=== PATIENT | female | born 1940 | race Caucasian/White ===

== ENCOUNTER 2019-08-04 05:33 | Outpatient (RCR) | payer MEDICARE, OTHER, SELFPAY | END 2019-08-26 00:01 | LOC: ONCMED 05:33 | PROVIDERS: Family Provider Family Medicine; Visit Provider Internal Medicine Hematology & Oncology | DX: Z08 Encounter for follow-up examination after completed treatment for malignant neoplasm (principal); Z85.3 Personal history of malignant neoplasm of breast; Z92.21 Personal history of antineoplastic chemotherapy | CPT/HCPCS: 77066; 80053; 85025 ×2; 99213 ==

== ENCOUNTER 2020-01-21 09:33 | Outpatient (CLI) | payer MEDICARE, OTHER, SELFPAY ==
[2020-01-21 10:27] LABS: Basophils % 0.4 %; Eosinophils # 0.1 10^3/uL (0.0-0.8); Eosinophils % 1.5 %; Hematocrit 43.4 % (37.0-47.0); Lymphocytes # 1.4 10^3/uL (0.8-4.8); Lymphocytes % 18.5 %; Mean Corpuscular Hemoglobin 29.1 pg (28.0-34.0); Mean Corpuscular Volume 97.1 fL (81-99); Mean Platelet Volume 9.3 fL (7.4-10.4); Monocytes # 0.7 10^3/uL (0.2-0.9); Monocytes % 8.6 %; Neutrophils # 5.4 10^3/uL (1.8-7.7); Neutrophils % 70.7 %; Nucleated Red Blood Cells % 0 %; Platelet Count 245 10^3/cmm (130-400); Red Blood Count 4.47 10^6/uL (4.1-5.3); Red Cell Distribution Width 13.2 % (12.1-15.1); White Blood Count 7.6 10^3/uL (4.0-10.0)
[2020-01-21 10:44] LABS: Alanine Aminotransferase 11 U/L (0-33); Alkaline Phosphatase 96 IU/L (35-105); Anion Gap 14.1 (5-19); Aspartate Amino Transferase 19 U/L (0-32); Blood Urea Nitrogen 19 mg/dL (8-23); Calcium 8.7 mg/dL (8.5-10.5); Carbon Dioxide 31 mmol/L (22-29); Chloride 100 mmol/L (98-107); Glucose 80 mg/dL (65-115); Osmolality Calculated 287 mOsm/kg (285-295); Potassium 4.1 mmol/L (3.5-5.1); Sodium 141 mmol/L (136-145); Total Bilirubin 0.3 mg/dL (0.15-1.2)
--- NOTE | 2020-01-21 18:08 | ONC FU_ITS ---
Dr. Ortiz follow up note Patient: Kelley Quezada Unit #: [id number]: [id number] Dicatated By: Sonido Ortiz M.D.Date of Visit:January 21, 2020 Onc Med Follow-up/Prog Note History of Present Illness: Mrs. Quezada is a 79-year-old female with recent history of newly diagnosed breast cancer. Per Mrs. Quezada report she had noticed a right breast mass for which she went to see Dr. Holm. He ordered mammogram which was done on 04/02/2018 and it showed ill-defined focal asymmetric measuring 5 cm x 2.5 cm. 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 The pathology revealed a Ki-67 analysis of 33% which is reported as high. ER was less than 1% ND was less than 1% HER-2/neil by IHC was 1+. The HER-2/neil overexpression was negative by IHC and over amplification by FISH. Patient was referred to Dr. Solorio for evaluation. Dr. Solorio then referred her to us for further plan of care. It was recommended that she undergo neoadjuvant chemotherapy with Cytoxan Taxotere. She started on neoadjuvant chemotherapy with Cytoxan/Taxotere on 06/04/2018 Mrs. Quezada underwent staging imaging with PET CT on 05/25/2018. There was the right central breast mass noted to be 4.7 x 2.4 cm with an SUV of 2.3. There are no findings to indicate local or distant metastatic disease. She began neoadjuvant chemotherapy on 06/04/2018 with cyclophosphamide and docetaxel. She underwent follow-up right limited breast ultrasound on 07/12/2018 after she had received 2 cycles of chemotherapy. The ultrasound did report interval response to chemotherapy as the mass did measure 3.6 x 2.9 x 3.1 cm as compared to 4.7 x 2.4 cm on the PET CT from 05/25/2018.Follow-up right breast mammogram done on 08/22/2018 showed significant reduction in right breast mass now measures 1 x 1.6 x 2 cm compared to 4.7 x 2.4 prior to neoadjuvant chemotherapy Underwent lumpectomy with right axillary sentinel lymph node biopsy on 09/19/2018, final pathology report showed multifocal nests of tumor estimated 1 cm aggregate dimension, with positive surgical margin and she underwent reexcision and achieved clear margins. And right axillary sentinel lymph node was positive for metastatic infiltrating lobular carcinoma. ER/ND negative, HER-2/neil negative, Ki-67 33% postlumpectomy surgical wound has healed up pretty good. Was offered adjuvant chemotherapy with oral Xeloda due to being high risk for recurrence. Patient did not start Xeloda because of cardiac issues, recently underwent cardiac monitoring which shows mild bradycardia with occasional PACs, as per patient she was on beta eileen, her dose was adjusted with that her heart rate did improve she also had echocardiogram done on 12/27/2018 which showed ejection fraction 75%. Planning to give her 4-6 cycles of modified dose of Xeloda, 2 weeks on 1 week off followed by postlumpectomy radiation therapy Patient started taking Xeloda on 01/07/2019 and took it for 3 days then developed severe nausea vomiting and diarrhea and and also felt numbness in her left face and left hand, and it also resolved on his own. Call the office and at that time she was told to quit taking Xeloda Status post postlumpectomy radiation to her right breast completed on 03/18/2019 .Mammogram done on 08/01/2019 showed BI-RADS 2, benign Came for follow-up, complaining of progressive lower back pain, patient has history of lower back pain in the past treated by chiropractor but now complaining of progressive pain but denies any lower extremity pain or swelling or numbness. Denies any recent trauma to her back. Denies any fever or chills, denies any weight loss, denies any other new symptoms. Medications: Calcium 500 + D3 1 Tablet (of 500-200 mg - Units) Oral daily, ChlordiazePOXIDE HCl 1 Capsule (of 10 mg) Oral at bedtime, CloNIDine HCl 1 Tablet (of 0.1 mg) Oral b.i.d., HydroCHLOROthiazide 1 Tablet (of 25 mg) Oral daily, levothyroxin 1 Tablet daily, lisinopril 1 Tablet b.i.d., Loratadine 1 Tablet (of 10 mg) Oral daily, Lovastatin 1 Tablet (of 20 mg) Oral b.i.d., Metoprolol Tartrate 1 Tablet (of 50 mg) Oral b.i.d., Omeprazole 1 Tablet (of 20 mg) Tablet, enteric coated Oral daily, Vitamin C 1 Tablet (of 500 mg) Oral daily Allergies: adhesive tape, Biaxin, and Penicillins. Review of Systems: Constitutional - Appetite is good and weight is stable. No fever, chills, hot flashes, or night sweats. Energy level is fair, ENMT - No sinus congestion/drainage. No mouth sores. No sore throat or difficulty swallowing, Hematologic/Lymphatic - No easy bruising or bleeding. The patient denies any tender or palpable lymph nodes, Respiratory - No dyspnea on exertion, chest pain, cough or hemoptysis, Cardiovascular - No chest pains or heart palpitations, Gastrointestinal - No nausea or vomiting. No heartburn or acid reflux. No diarrhea or constipation. No blood in the stool or black stools, Genitourinary (F) - No dysuria or hematuria. No urinary frequency. No urgency or incontinence, Musculoskeletal - No joint pain, swelling or redness, Neurologic - Patient reports occasional headache, no dizziness. No numbness/paresthesias or other focal neurologic symptoms, Psychiatric - No anxiety or depression. No insomnia. Vital Signs: Vitals are not available for this patient. Performance Status: 1 - No physically strenuous activity, but ambulatory and able to carry out light or sedentary work (e.g. office work, light house work). (ECOG) Physical Examination: Respiratory - Lungs are clear, Cardiovascular - Regular rate and rhythm, Extremities - no edema or rash. , no focal tenderness or mass palpable in her back. Lab/Imaging: Test performed on Aug 01, 2019 08:15 Sodium 130 mmol/L Potassium 4.5 mmol/L Chloride 90 mmol/L CO2 28 mmol/L Anion Gap 16.5 BUN 20 mg/dL Creatinine 1.2 mg/dL Cr Clearance (Est) 61.0000 mL/min Glucose 97 mg/dl Calcium 8.5 mg/dL Protein, Total 6.7 g/dL Albumin 4.8 g/dL Globulin 1.9 gm/dL Bilirubin, Total 0.3 mg/dL ALT (SGPT) 13 U/L AST (SGOT) 18 U/L Alkaline Phosphatase 86 U/L WBC 5.2 10 3/uL RBC 4.38 10 6/uL HGB 12.7 g/dL HCT 40.2 % MCV 91.8 fl MCH 29.0 pg MCHC 31.6 g/dl RDW 12.7 % Platelet Count 278 10 3/cmm MPV 9.9 fl Neutrophils 3.3 10 3/uL Lymphocytes 1.3 10 3/uL Monocytes 0.5 10 3/uL Eosinophils 0.1 10 3/uL Basophils 0.0 10 3/uL Neutrophil % 63.6 % Lymphocyte % 25.1 % Monocyte % 8.8 % Eosinophil % 1.7 % Basophils % 0.6 % Impression: Infiltrating lobular carcinoma of right breast status post ultrasound guided biopsy done on 04/22/2018 Treated with neoadjuvant chemotherapy with Cytoxan and Taxotere from 06/04/2018 till 08/06/2018 with good response per follow-up sonogram of right breast underwent right lumpectomy with right axillary lymph node biopsy on 09/19/2018 showed multifocal nests of tumor, estimated 1 cm aggregate dimension pT1b, positive surgical margin, required reexcision to achieve clear margins. Axillary lymph node was positive for metastatic disease pN1b ER ND negative HER-2/neil negative, Ki-67 33% which is high Mammogram done on 04/02/2018 showed 5 x 2.5 cm, ill-defined focal asymmetric in the right breast ?T3 CT PET scan done on 05/25/2018 showed 4.7 x 2.2 cm mass with SUV of 2.3 with no findings suggestive of local or distant metastatic disease Mild renal insufficiency creatinine 1.5 Started on neoadjuvant chemotherapy with Cytoxan and Taxotere, with Neulasta support on 06/04/2018.and concluded 4 cycle on 08/06/18 . Right breast sonogram done after 2 cycles on 07/12/2018 showed 3.6 x 2.9 x 3.1 cm mass compared to 4.7 x 2.[address] seen on [address] PET scan on 05/25/2018 Follow-up mammogram done after 4 cycles on 08/22/2018 showed good response to neoadjuvant chemotherapy and now tumor measures 1 x 1.6 x 2 cm compared to 4.7 x 2 4 cm prior to the neoadjuvant chemotherapy Underwent lumpectomy and sentinel lymph node biopsy as mentioned above on 09/19/2018, Her lumpectomy specimen showed viable disease she was offered adjuvant chemotherapy with oral Xeloda and patient start taking oral Xeloda on 01/07/2019 and within 3 days she developed severe nausea vomiting and diarrhea, no fever but tender mouth with no mouth sores. And also developed left facial numbness and left hand numbness, patient was advised to quit taking Xeloda immediately, her symptoms improved on her own. Considering her age, comorbid condition and related side effect of oral Xeloda and conflicting data on oral Xeloda in adjuvant setting, it was decided to discontinue adjuvant therapy and rather observe with active surveillance, Plan: Discussed with patient regarding her labs white blood count 7.6 and globin 13 crit 43.4 platelets 245,000 CMP within normal limits except creatinine 1.2 Clinically, patient is doing well with no signs symptoms suggestive of recurrence of disease but concern is progressive lower back pain, although patient has history of chronic back pain but now is progressive in nature and interfering with her day-to-day activity. At this point we'll consider bone scan and plain x-ray of thoracic and lumbosacral area, and after reviewing that we will make further recommendations, MRI spine was under consideration but patient has right partial hip replacement. Patient return to clinic after bone scan for further discussion and patient was advised in case there is a worsening of lower back pain or urine or stool incontinence, she needed to go to hospital immediately. Signed By: Sonido Ortiz M.D. <<Signature on File>>
== END 2020-01-21 09:34 | disposition home or self-care (01) ==
LOC: ONCMED 09:39
PROVIDERS: PCP Family Medicine; Visit Provider Internal Medicine Hematology & Oncology
DX: C50.411 Malignant neoplasm of upper-outer quadrant of right female breast (principal); C77.3 Secondary and unspecified malignant neoplasm of axilla and upper limb lymph nodes; G89.29 Other chronic pain; M54.5 Low back pain; N28.9 Disorder of kidney and ureter, unspecified; Z17.1 Estrogen receptor negative status [ER-]; Z92.3 Personal history of irradiation; Z92.21 Personal history of antineoplastic chemotherapy; Z96.641 Presence of right artificial hip joint
CPT/HCPCS: 36415; 80053; 85025; 99214

== ENCOUNTER 2020-01-26 08:34 | Outpatient (CLI) | payer MEDICARE, OTHER, SELFPAY ==
--- NOTE | 2020-01-26 08:43 | XR_ITS ---
WS: [id number] XR thoracic spine 3V* [id number] REASON FOR EXAM: PERSISTENT BONE PAIN FINDINGS: The T6 shows a remote compression fracture. This area showed scattered degenerated uptake b ut no definite new uptake to suggest fractures. The lamina, pedicles, spinous processes and transverse processes are all normal. XR/XR thoracic spine 3V* [id number] IMPRESSION: Remote compression fracture of T6
--- NOTE | 2020-01-26 08:43 | NM_ITS ---
WS: [id number] NM bone scan whole body* [id number] REASON FOR EXAM: RE STAGING EVALUATION/HX OF CANCER,BONE PAIN TECHNICAL: 25.7 mCi technetium 99 and HDP FINDINGS: The lumbar spine and lower thoracic spine shows scattered degenerated changes. No definite metastatic uptake is noted. The rib structures were all normal. The pelvis show no abnormalities. The femurs shafts were normal there is mild degenerate changes activity in the knees. There are scattered degenerate changes in the cervical spine. NM/NM bone scan whole body* [id number] IMPRESSION: Bone activity consistent with osteoarthritis. No definite metastatic changes.
--- NOTE | 2020-01-26 08:43 | XR_ITS ---
WS: [id number] XR lumbar spine 2-3V* [id number] REASON FOR EXAM: PERSISTANT BONE PAIN FINDINGS: Scoliotic curve convex to the left is noted. There is degenerate spurring off the vertebral bodies. And there is degenerate facet arthropathy L5-S1. Degenerated disc changes L2 1-2, L2-3, L3-4 . There is no definite destructive changes to suggest metastatic findings. XR/XR lumbar spine 2-3V* [id number] IMPRESSION: Scoliotic curve convex to the left. Degenerative arthritis with degenerate disc disease.
== END 2020-01-26 08:35 | disposition home or self-care (01) ==
LOC: RAD 08:36
PROVIDERS: PCP Family Medicine; Visit Provider Internal Medicine Hematology & Oncology
DX: Z85.9 Personal history of malignant neoplasm, unspecified (principal); M89.8X9 Other specified disorders of bone, unspecified site; S22.050A Wedge compression fracture of T5-T6 vertebra, initial encounter for closed fracture; X58.XXXA Exposure to other specified factors, initial encounter; M51.36 Other intervertebral disc degeneration, lumbar region
CPT/HCPCS: 72072; 72100; 78306; A9561

== ENCOUNTER 2020-02-06 11:19 | Outpatient (CLI) | payer MEDICARE, OTHER, SELFPAY ==
--- NOTE | 2020-02-06 12:00 | ONC FU_ITS ---
Dr. Ortiz follow up note Patient: Kelley Quezada Unit #: [id number]: 1940 Dicatated By: Sonido Ortiz M.D.Date of Visit:Feb 06, 2020 Onc Med Follow-up/Prog Note History of Present Illness: Mrs. Quezada is a 79-year-old female with recent history of newly diagnosed breast cancer. Per Mrs. Quezada report she had noticed a right breast mass for which she went to see Dr. Holm. He ordered mammogram which was done on 04/02/2018 and it showed ill-defined focal asymmetric measuring 5 cm x 2.5 cm. 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 The pathology revealed a Ki-67 analysis of 33% which is reported as high. ER was less than 1% MD was less than 1% HER-2/neil by IHC was 1+. The HER-2/neil overexpression was negative by IHC and over amplification by FISH. Patient was referred to Dr. Solorio for evaluation. Dr. Solorio then referred her to us for further plan of care. It was recommended that she undergo neoadjuvant chemotherapy with Cytoxan Taxotere. She started on neoadjuvant chemotherapy with Cytoxan/Taxotere on 06/04/2018 Mrs. Quezada underwent staging imaging with PET CT on 05/25/2018. There was the right central breast mass noted to be 4.7 x 2.4 cm with an SUV of 2.3. There are no findings to indicate local or distant metastatic disease. She began neoadjuvant chemotherapy on 06/04/2018 with cyclophosphamide and docetaxel. She underwent follow-up right limited breast ultrasound on 07/12/2018 after she had received 2 cycles of chemotherapy. The ultrasound did report interval response to chemotherapy as the mass did measure 3.6 x 2.9 x 3.1 cm as compared to 4.7 x 2.4 cm on the PET CT from 05/25/2018.Follow-up right breast mammogram done on 08/22/2018 showed significant reduction in right breast mass now measures 1 x 1.6 x 2 cm compared to 4.7 x 2.4 prior to neoadjuvant chemotherapy Underwent lumpectomy with right axillary sentinel lymph node biopsy on 09/19/2018, final pathology report showed multifocal nests of tumor estimated 1 cm aggregate dimension, with positive surgical margin and she underwent reexcision and achieved clear margins. And right axillary sentinel lymph node was positive for metastatic infiltrating lobular carcinoma. ER/MD negative, HER-2/neil negative, Ki-67 33% postlumpectomy surgical wound has healed up pretty good. Was offered adjuvant chemotherapy with oral Xeloda due to being high risk for recurrence. Patient did not start Xeloda because of cardiac issues, recently underwent cardiac monitoring which shows mild bradycardia with occasional PACs, as per patient she was on beta eileen, her dose was adjusted with that her heart rate did improve she also had echocardiogram done on 12/27/2018 which showed ejection fraction 75%. Planning was to give her 4-6 cycles of modified dose of Xeloda, 2 weeks on 1 week off followed by postlumpectomy radiation therapy Patient started taking Xeloda on 01/07/2019 and took it for 3 days then developed severe nausea vomiting and diarrhea and and also felt numbness in her left face and left hand, and it also resolved on his own. Call the office and at that time she was told to quit taking Xeloda Status post postlumpectomy radiation to her right breast completed on 03/18/2019 .Mammogram done on 08/01/2019 showed BI-RADS 2, benign Patient has history of chronic back pain but recently become progressive, for which bone scan was done on January 26, 2020 which showed no evidence of metastatic disease but findings consistent with osteoarthritis and plain x-ray of lumbar spine showed scoliotic curve convex to the left, degenerative arthritis with degenerative disc disease. Came for follow-up, denies any specific complaint except persistent lower back pain but no numbness in the lower extremity no urine or stool incontinence. No recent trauma to her back and she recently underwent bone scan and plain x-ray of lumbar spine, she is here to discuss the results. Medications: Calcium 500 + D3 1 Tablet (of 500-200 mg - Units) Oral daily, ChlordiazePOXIDE HCl 1 Capsule (of 10 mg) Oral at bedtime, CloNIDine HCl 1 Tablet (of 0.1 mg) Oral b.i.d., HydroCHLOROthiazide 1 Tablet (of 25 mg) Oral daily, levothyroxin 1 Tablet daily, lisinopril 1 Tablet b.i.d., Loratadine 1 Tablet (of 10 mg) Oral daily, Lovastatin 1 Tablet (of 20 mg) Oral b.i.d., Metoprolol Tartrate 1 Tablet (of 50 mg) Oral b.i.d., Omeprazole 1 Tablet (of 20 mg) Tablet, enteric coated Oral daily, Vitamin C 1 Tablet (of 500 mg) Oral daily Allergies: adhesive tape, Biaxin, and Penicillins. Review of Systems: Constitutional - Appetite is good and weight is stable. No fever, chills, hot flashes, or night sweats. Energy level is fair, ENMT - No sinus congestion/drainage. No mouth sores. No sore throat or difficulty swallowing, Hematologic/Lymphatic - No easy bruising or bleeding. The patient denies any tender or palpable lymph nodes, Respiratory - No dyspnea on exertion, chest pain, cough or hemoptysis, Cardiovascular - No chest pains or heart palpitations, Gastrointestinal - No nausea or vomiting. No heartburn or acid reflux. No diarrhea or constipation. No blood in the stool or black stools, Genitourinary (F) - No dysuria or hematuria. No urinary frequency. No urgency or incontinence, Musculoskeletal - No joint pain, swelling or redness, Neurologic - Patient reports occasional headache, no dizziness. No numbness/paresthesias or other focal neurologic symptoms, Psychiatric - No anxiety or depression. No insomnia. Vital Signs: Performed on Feb 06, 2020 11:33 Height - 65.50 in Weight - 209.2 lbs (HIGH) BSA - 2.03 sq.m BMI - 34.28 (HIGH) Temperature - 99.5 F (HIGH) Pulse - 59 /min (LOW) Respiration - 24 /min BP - 141/71 mm(hg) (HIGH) O2 Sat - 96 % Pain - 0 Performance Status: 1 - No physically strenuous activity, but ambulatory and able to carry out light or sedentary work (e.g. office work, light house work). (ECOG) Physical Examination: Respiratory - Lungs are clear, Cardiovascular - Regular rate and rhythm of heart, Extremities - No visible edema or rash. Lab/Imaging: Test performed on January 21, 2020 09:58 Sodium 141 mmol/L Potassium 4.1 mmol/L Chloride 100 mmol/L CO2 31 mmol/L Anion Gap 14.1 BUN 19 mg/dL Creatinine 1.2 mg/dL Cr Clearance (Est) 60.0500 mL/min Glucose 80 mg/dL Calcium 8.7 mg/dL Protein, Total 7.0 g/dL Albumin 4.0 g/dL Globulin 3.0 g/dL Bilirubin, Total 0.3 mg/dL ALT (SGPT) 11 U/L AST (SGOT) 19 U/L Alkaline Phosphatase 96 IU/L WBC 7.6 10 3/uL RBC 4.47 10 6/uL HGB 13.0 g/dL HCT 43.4 % MCV 97.1 fL MCH 29.1 pg MCHC 30.0 g/dL RDW 13.2 % Platelet Count 245 10 3/cmm MPV 9.3 fL Neutrophils 5.4 10 3/uL Lymphocytes 1.4 10 3/uL Monocytes 0.7 10 3/uL Eosinophils 0.1 10 3/uL Basophils 0.0 10 3/uL Neutrophil % 70.7 % Lymphocyte % 18.5 % Monocyte % 8.6 % Eosinophil % 1.5 % Basophils % 0.4 % Impression: Infiltrating lobular carcinoma of right breast status post ultrasound guided biopsy done on 04/22/2018 Treated with neoadjuvant chemotherapy with Cytoxan and Taxotere from 06/04/2018 till 08/06/2018 with good response per follow-up sonogram of right breast underwent right lumpectomy with right axillary lymph node biopsy on 09/19/2018 showed multifocal nests of tumor, estimated 1 cm aggregate dimension pT1b, positive surgical margin, required reexcision to achieve clear margins. Axillary lymph node was positive for metastatic disease pN1b ER MD negative HER-2/neli negative, Ki-67 33% which is high Mammogram done on 04/02/2018 showed 5 x 2.5 cm, ill-defined focal asymmetric in the right breast ?T3 CT PET scan done on 05/25/2018 showed 4.7 x 2.2 cm mass with SUV of 2.3 with no findings suggestive of local or distant metastatic disease Mild renal insufficiency creatinine 1.5 Started on neoadjuvant chemotherapy with Cytoxan and Taxotere, with Neulasta support on 06/04/2018.and concluded 4 cycle on 08/06/18 . Right breast sonogram done after 2 cycles on 07/12/2018 showed 3.6 x 2.9 x 3.1 cm mass compared to 4.7 x 2.2 cm mass seen on CT PET scan on 05/25/2018 Follow-up mammogram done after 4 cycles on 08/22/2018 showed good response to neoadjuvant chemotherapy and now tumor measures 1 x 1.6 x 2 cm compared to 4.7 x 2 4 cm prior to the neoadjuvant chemotherapy Underwent lumpectomy and sentinel lymph node biopsy as mentioned above on 09/19/2018, Her lumpectomy specimen showed viable disease she was offered adjuvant chemotherapy with oral Xeloda and patient start taking oral Xeloda on 01/07/2019 and within 3 days she developed severe nausea vomiting and diarrhea, no fever but tender mouth with no mouth sores. And also developed left facial numbness and left hand numbness, patient was advised to quit taking Xeloda immediately, her symptoms improved on her own. Considering her age, comorbid condition and related side effect of oral Xeloda and conflicting data on oral Xeloda in adjuvant setting, it was decided to discontinue adjuvant therapy and rather observe with active surveillance, Plan: Discussed with patient regarding her bone scan and x-ray lumbar spine findings which was done on January 26, 2020, showed no evidence of metastatic disease rather arthritis and degenerative disc disease. Clinically, patient is doing reasonably well but in [id number] distress due to lower back pain, concern was metastatic breast cancer, for which she underwent bone scan and x-ray lumbar spine which showed no evidence of metastatic disease. At this point we will refer her to Dr. Farley, for evaluation and back pain management. And she will return to clinic in 4 months with CBC and CMP Signed By: Sonido Ortiz M.D. <<Signature on File>>
== END 2020-02-06 11:20 | disposition home or self-care (01) ==
LOC: ONCMED 11:25
PROVIDERS: PCP Family Medicine; Visit Provider Internal Medicine Hematology & Oncology
DX: C50.411 Malignant neoplasm of upper-outer quadrant of right female breast (principal); Z17.1 Estrogen receptor negative status [ER-]; F41.9 Anxiety disorder, unspecified; F32.9 Major depressive disorder, single episode, unspecified; K21.9 Gastro-esophageal reflux disease without esophagitis; K44.9 Diaphragmatic hernia without obstruction or gangrene; E78.00 Pure hypercholesterolemia, unspecified; I10 Essential (primary) hypertension; E03.9 Hypothyroidism, unspecified; M19.90 Unspecified osteoarthritis, unspecified site; L40.9 Psoriasis, unspecified; N28.9 Disorder of kidney and ureter, unspecified; Z92.21 Personal history of antineoplastic chemotherapy
CPT/HCPCS: 99214

== ENCOUNTER 2020-02-24 09:38 | Outpatient (CLI) | payer MEDICARE, OTHER, SELFPAY ==
--- NOTE | 2020-02-24 10:15 | MR_ITS ---
WS: [id number] MRI LUMBAR SPINE NONCONTRAST HISTORY: M51.26 Other intervertebral disc displacement, lumbar region COMPARISON: None available. TECHNIQUE: Sagittal and axial multisequence imaging is submitted. Mild increase in thoracic kyphosis. 20% T6 anterior compression fracture. LEFT convex curvature lumbar spine Moderate degenerative disc space narrowing and desiccation throughout the lumbar spine. 3 mm retrolis thesis of L2 and L3. Conus terminates normally at L1-2 disc level. L1-L2: Diffuse annular disc bulging and mild osteophytic ridging with facet arthritis. L2-L3: Diffuse osteophytic ridging and annular disc bulging. Small RIGHT paracentral disc protrusion. Moderate facet and ligamentum flavum arthritis. Mild central and bilateral foraminal stenosis. Mild RIGHT subarticular recess stenosis. L3-L4: Annular disc bulging with ligamentum flavum hypertrophy and facet arthritis. Mild central, vicente ateral subarticular recess and foraminal stenosis. L4-L5: Diffuse annular disc bulging with moderate ligamentum flavum arthritis. Moderate central, suba rticular recess and bilateral foraminal stenosis. L5-S1: Mild annular disc bulging and facet arthritis. Mild atherosclerosis. MR/MR lumbar spine wo con* [id number] IMPRESSION: 1. LEFT convex degenerative scoliosis lumbar spine with diffuse disc space gladys iccation. 2. Mild central and bilateral foraminal stenosis and mild RIGHT subarticular r ecess stenosis at L2-3. 3. Moderate central, bilateral foraminal subarticular recess stenosis at L4-5. 4. Mild central, bilateral subarticular recess and foraminal stenosis at L3-4. 5. 3 mm retrolisthesis of L2 and L3.
--- NOTE | 2020-02-24 11:00 | XR_ITS ---
WS: [id number] LATERAL LUMBAR SPINE: 3 view. Lateral radiographs are performed in upright neutral, flexion and extension to the patient's toleranc e. HISTORY: Low back pain COMPARISON: 01/26/2020 L2 and L3 retrolisthesis. L2 retrolisthesis by 3 mm increases to 4.6 mm during flexion and 6.7 mm dur ing extension. L3 retrolisthesis by 2.5 mm increases to 4 mm during flexion and 4.5 mm during extension. Moderate degenerative disc space narrowing at L1-2. Atherosclerosis aorta. XR/XR lumbar spine f/e only [id number] IMPRESSION: Mild flexion extension instability of L2 and L3.
== END 2020-02-24 09:39 | disposition home or self-care (01) ==
LOC: RADWPI 09:48
PROVIDERS: Family Provider Family Medicine; PCP Family Medicine; Visit Provider Licensed Practical Nurse
DX: M51.26 Other intervertebral disc displacement, lumbar region (principal); M48.061 Spinal stenosis, lumbar region without neurogenic claudication
CPT/HCPCS: 72120; 72148

== ENCOUNTER 2020-03-10 15:16 | Outpatient (CLI) | payer MEDICARE, OTHER, SELFPAY ==
--- NOTE | 2020-03-10 15:45 | CT_ITS ---
WS: [id number] CT of the lumbar spine, additional two-dimensional coronal and sagittal imaging was obtained. 03/10/20 Clinical Data: Low back pain Comparison: MRI lumbar spine, 02/24/2020. DLP: 1841.[address] scans at [facility] use at least one of these dose optimization techniques: automat ed exposure control; mA and/or kV adjustment per patient size (includes targeted exams where dose is matched to clinical indication); or iterative reconstruction. Findings: There is degenerative disc change at L1-L2, L2-L3, L3-L4 and L5-S1. There is retrolisthesis of L2 on L3 and also L3 on L4 of 0.3 cm. There is a anterolisthesis of L5 on S1 of 0.4 cm. No compre ssion fractures are seen. There is moderate osteoarthritis of the vertebral bodies L1-L3. Osteoporosi s of all the vertebral bodies is seen. T12-L1: No canal stenosis, disc bulge or foraminal narrowing is seen. L1-L2: There is a minimal disc bulge but no canal stenosis or foraminal stenosis is seen. L2-L3: There is a moderate disc bulge with mild canal stenosis and foraminal stenosis. L3-L4: There is a moderate disc bulge with canal stenosis and facet joint hypertrophy causing foramin al stenosis. L4-L5: There is a broad-based disc bulge along with facet joint hypertrophy causing canal and foramin al stenosis. L5-S1: There is a broad-based disc bulge along with facet joint hypertrophy and arthritis causing mod erate canal stenosis and foraminal stenosis. CT/CT lumbar spine wo con* [id number] Impression: 1. Multiple levels of degenerative disc disease. 2. Retrolisthesis at L2 on L3 and L3 on L4. 3. Anterolisthesis of L5 on S1. 4. Multilevel disc bulging and facet joint arthritis causing canal and foramina l stenosis. 5. Diffuse osteoporosis and upper lumbar osteoarthritis.
== END 2020-03-10 15:17 | disposition home or self-care (01) ==
LOC: RADWPI 15:21
PROVIDERS: Family Provider Family Medicine; PCP Family Medicine; Visit Provider Licensed Practical Nurse
DX: M43.16 Spondylolisthesis, lumbar region (principal); M81.0 Age-related osteoporosis without current pathological fracture; M47.896 Other spondylosis, lumbar region
CPT/HCPCS: 72131

== ENCOUNTER 2020-07-06 11:55 | Outpatient (CLI) | payer MEDICARE, OTHER, SELFPAY ==
[2020-07-06 12:38] LABS: Basophils % 0.4 %; Eosinophils # 0.1 10^3/uL (0.0-0.8); Hemoglobin 12.4 g/dL (11.5-15.3); Lymphocytes # 1.3 10^3/uL (0.8-4.8); Lymphocytes % 18.8 %; Mean Corpuscular Volume 96.9 fL (81-99); Mean Platelet Volume 9.2 fL (7.4-10.4); Monocytes # 0.5 10^3/uL (0.2-0.9); Monocytes % 7.3 %; Neutrophils # 4.96 10^3/uL (1.8-7.7); Neutrophils % 72.4 %; Nucleated Red Blood Cells % 0 %; Platelet Count 241 10^3/cmm (130-400); Red Blood Count 4.13 10^6/uL (4.1-5.3); Red Cell Distribution Width 13.3 % (12.1-15.1); White Blood Count 6.9 10^3/uL (4.0-10.0)
[2020-07-06 12:58] LABS: Alanine Aminotransferase 12 U/L (0-33); Albumin Level 3.8 g/dL (3.5-5.2); Alkaline Phosphatase 83 IU/L (35-105); Anion Gap 13.3 (5-19); Aspartate Amino Transferase 15 U/L (0-32); Blood Urea Nitrogen 18 mg/dL (8-23); Calcium 8.5 mg/dL (8.5-10.5); Carbon Dioxide 30 mmol/L (22-29); Chloride 99 mmol/L (98-107); Globulin 2.6 g/dL (1.3-4.6); Glucose 105 mg/dL (65-115); Osmolality Calculated 288 mOsm/kg (285-295); Potassium 4.3 mmol/L (3.5-5.1); Sodium 138 mmol/L (136-145); Total Bilirubin 0.2 mg/dL (0.15-1.2); Total Protein 6.4 g/dL (6.6-8.7)
--- NOTE | 2020-07-06 16:34 | ONC FU_ITS ---
Dr. Ortiz follow up note Patient: Kelley Quezada Unit #: [id number]: 1940 Dicatated By: Sonido Ortiz M.D.Date of Visit:Jul 06, 2020 Onc Med Follow-up/Prog Note History of Present Illness: Mrs. Quezada is a 79-year-old female with recent history of newly diagnosed breast cancer. Per Mrs. Quezada report she had noticed a right breast mass for which she went to see Dr. Holm. He ordered mammogram which was done on 04/02/2018 and it showed ill-defined focal asymmetric measuring 5 cm x 2.5 cm. 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 The pathology revealed a Ki-67 analysis of 33% which is reported as high. ER was less than 1% MD was less than 1% HER-2/neil by IHC was 1+. The HER-2/neil overexpression was negative by IHC and over amplification by FISH. Patient was referred to Dr. Solorio for evaluation. Dr. Solorio then referred her to us for further plan of care. It was recommended that she undergo neoadjuvant chemotherapy with Cytoxan Taxotere. She started on neoadjuvant chemotherapy with Cytoxan/Taxotere on 06/04/2018 Mrs. Quezada underwent staging imaging with PET CT on 05/25/2018. There was the right central breast mass noted to be 4.7 x 2.4 cm with an SUV of 2.3. There are no findings to indicate local or distant metastatic disease. She began neoadjuvant chemotherapy on 06/04/2018 with cyclophosphamide and docetaxel. She underwent follow-up right limited breast ultrasound on 07/12/2018 after she had received 2 cycles of chemotherapy. The ultrasound did report interval response to chemotherapy as the mass did measure 3.6 x 2.9 x 3.1 cm as compared to 4.7 x 2.4 cm on the PET CT from 05/25/2018.Follow-up right breast mammogram done on 08/22/2018 showed significant reduction in right breast mass now measures 1 x 1.6 x 2 cm compared to 4.7 x 2.4 prior to neoadjuvant chemotherapy Underwent lumpectomy with right axillary sentinel lymph node biopsy on 09/19/2018, final pathology report showed multifocal nests of tumor estimated 1 cm aggregate dimension, with positive surgical margin and she underwent reexcision and achieved clear margins. And right axillary sentinel lymph node was positive for metastatic infiltrating lobular carcinoma. ER/MD negative, HER-2/neil negative, Ki-67 33% postlumpectomy surgical wound has healed up pretty good. Was offered adjuvant chemotherapy with oral Xeloda due to being high risk for recurrence. Patient did not start Xeloda because of cardiac issues, recently underwent cardiac monitoring which shows mild bradycardia with occasional PACs, as per patient she was on beta eileen, her dose was adjusted with that her heart rate did improve she also had echocardiogram done on 12/27/2018 which showed ejection fraction 75%. Planning was to give her 4-6 cycles of modified dose of Xeloda, 2 weeks on 1 week off followed by postlumpectomy radiation therapy Patient started taking Xeloda on 01/07/2019 and took it for 3 days then developed severe nausea vomiting and diarrhea and and also felt numbness in her left face and left hand, and it also resolved on his own. Call the office and at that time she was told to quit taking Xeloda Status post postlumpectomy radiation to her right breast completed on 03/18/2019 .Mammogram done on 08/01/2019 showed BI-RADS 2, benign Patient has history of chronic back pain but recently become progressive, for which bone scan was done on January 26, 2020 which showed no evidence of metastatic disease but findings consistent with osteoarthritis and plain x-ray of lumbar spine showed scoliotic curve convex to the left, degenerative arthritis with degenerative disc disease. Came for follow-up, denies any specific complaint except chronic back pain, as per patient she recently underwent 'steroid' injection to her back with somewhat improvement but still having some back pain, now nerve stimulator is under consideration. Denies any nausea or vomiting, denies any diarrhea or constipation, denies any fever chills, denies any melena or hematochezia, Medications: Calcium 500 + D3 1 Tablet (of 500-200 mg - Units) Oral daily, ChlordiazePOXIDE HCl 1 Capsule (of 10 mg) Oral at bedtime, CloNIDine HCl 1 Tablet (of 0.1 mg) Oral b.i.d., HydroCHLOROthiazide 1 Tablet (of 25 mg) Oral daily, levothyroxin 1 Tablet daily, lisinopril 1 Tablet b.i.d., Loratadine 1 Tablet (of 10 mg) Oral daily, Lovastatin 1 Tablet (of 20 mg) Oral b.i.d., Metoprolol Tartrate 1 Tablet (of 50 mg) Oral b.i.d., Omeprazole 1 Tablet (of 20 mg) Tablet, enteric coated Oral daily, Vitamin C 1 Tablet (of 500 mg) Oral daily Allergies: adhesive tape, Biaxin, and Penicillins. Review of Systems: Constitutional - Appetite is good and weight is stable. No fever, chills, hot flashes, or night sweats. Energy level is fair, ENMT - No sinus congestion/drainage. No mouth sores. No sore throat or difficulty swallowing, Hematologic/Lymphatic - No easy bruising or bleeding. The patient denies any tender or palpable lymph nodes, Respiratory - No dyspnea on exertion, chest pain, cough or hemoptysis, Cardiovascular - No chest pains or heart palpitations, Gastrointestinal - No nausea or vomiting. No heartburn or acid reflux. No diarrhea or constipation. No blood in the stool or black stools, Genitourinary (F) - No dysuria or hematuria. No urinary frequency. No urgency or incontinence, Musculoskeletal - No joint pain, swelling or redness, Neurologic - Patient reports occasional headache, no dizziness. No numbness/paresthesias or other focal neurologic symptoms, Psychiatric - No anxiety or depression. No insomnia. Vital Signs: Performed on Jul 06, 2020 14:11 Height - 65.50 in Weight - 206.0 lbs (LOW) BSA - 2.01 sq.m BMI - 33.76 (HIGH) Temperature - 98.8 F Pulse - 65 /min Respiration - 24 /min BP - 120/65 mm(hg) O2 Sat - 92 % (LOW) Pain - 0 Performance Status: 0 - Fully active, able to carry on all predisease activities without restrictions. (ECOG) Physical Examination: Respiratory - Lungs are clear to auscultation, Cardiovascular - Regular rate and rhythm of heart, Gastrointestinal - Soft, bowel sounds present, Extremities - No visible swelling or edema. Lab/Imaging: Test performed on January 21, 2020 09:58 Sodium 141 mmol/L Potassium 4.1 mmol/L Chloride 100 mmol/L CO2 31 mmol/L Anion Gap 14.1 BUN 19 mg/dL Creatinine 1.2 mg/dL Cr Clearance (Est) 60.0500 mL/min Glucose 80 mg/dL Calcium 8.7 mg/dL Protein, Total 7.0 g/dL Albumin 4.0 g/dL Globulin 3.0 g/dL Bilirubin, Total 0.3 mg/dL ALT (SGPT) 11 U/L AST (SGOT) 19 U/L Alkaline Phosphatase 96 IU/L WBC 7.6 10 3/uL RBC 4.47 10 6/uL HGB 13.0 g/dL HCT 43.4 % MCV 97.1 fL MCH 29.1 pg MCHC 30.0 g/dL RDW 13.2 % Platelet Count 245 10 3/cmm MPV 9.3 fL Neutrophils 5.4 10 3/uL Lymphocytes 1.4 10 3/uL Monocytes 0.7 10 3/uL Eosinophils 0.1 10 3/uL Basophils 0.0 10 3/uL Neutrophil % 70.7 % Lymphocyte % 18.5 % Monocyte % 8.6 % Eosinophil % 1.5 % Basophils % 0.4 % Impression: Infiltrating lobular carcinoma of right breast status post ultrasound guided biopsy done on 04/22/2018 Treated with neoadjuvant chemotherapy with Cytoxan and Taxotere from 06/04/2018 till 08/06/2018 with good response per follow-up sonogram of right breast underwent right lumpectomy with right axillary lymph node biopsy on 09/19/2018 showed multifocal nests of tumor, estimated 1 cm aggregate dimension pT1b, positive surgical margin, required reexcision to achieve clear margins. Axillary lymph node was positive for metastatic disease pN1b ER MD negative HER-2/neil negative, Ki-67 33% which is high Mammogram done on 04/02/2018 showed 5 x 2.5 cm, ill-defined focal asymmetric in the right breast ?T3 CT PET scan done on 05/25/2018 showed 4.7 x 2.2 cm mass with SUV of 2.3 with no findings suggestive of local or distant metastatic disease Mild renal insufficiency creatinine 1.5 Started on neoadjuvant chemotherapy with Cytoxan and Taxotere, with Neulasta support on 06/04/2018.and concluded 4 cycle on 08/06/18 . Right breast sonogram done after 2 cycles on 07/12/2018 showed 3.6 x 2.9 x 3.1 cm mass compared to 4.7 x 2.2 cm mass seen on CT PET scan on 05/25/2018 Follow-up mammogram done after 4 cycles on 08/22/2018 showed good response to neoadjuvant chemotherapy and now tumor measures 1 x 1.6 x 2 cm compared to 4.7 x 2 4 cm prior to the neoadjuvant chemotherapy Underwent lumpectomy and sentinel lymph node biopsy as mentioned above on 09/19/2018, Her lumpectomy specimen showed viable disease she was offered adjuvant chemotherapy with oral Xeloda and patient start taking oral Xeloda on 01/07/2019 and within 3 days she developed severe nausea vomiting and diarrhea, no fever but tender mouth with no mouth sores. And also developed left facial numbness and left hand numbness, patient was advised to quit taking Xeloda immediately, her symptoms improved on her own. Considering her age, comorbid condition and related side effect of oral Xeloda and conflicting data on oral Xeloda in adjuvant setting, it was decided to discontinue adjuvant therapy and rather observe with active surveillance, Plan: Discussed with patient regarding her labs white blood count 6.9 hemoglobin 12.4 hematocrit 40 platelets 241,000 CMP within normal limits except creatinine 1.1 Clinically, patient is doing reasonably well with no new signs symptoms, lab work-up is within normal range, have chronic back pain, now being evaluated for possible nerve stimulator as per patient she was given 'steroids' injection to her back but without much improvement. Return to clinic in 6 months with CBC CMP and follow-up mammogram Signed By: Sonido Ortiz M.D. <<Signature on File>>
== END 2020-07-06 11:56 | disposition home or self-care (01) ==
PROVIDERS: PCP Family Medicine; Visit Provider Internal Medicine Hematology & Oncology
DX: C50.411 Malignant neoplasm of upper-outer quadrant of right female breast (principal); Z17.1 Estrogen receptor negative status [ER-]; C77.3 Secondary and unspecified malignant neoplasm of axilla and upper limb lymph nodes; N28.9 Disorder of kidney and ureter, unspecified; Z92.21 Personal history of antineoplastic chemotherapy; Z79.899 Other long term (current) drug therapy
CPT/HCPCS: 36415; 80053; 85025; G0463

== ENCOUNTER 2020-10-01 13:34 | Outpatient (CLI) | payer MEDICARE, OTHER, SELFPAY ==
--- NOTE | 2020-10-01 14:15 | USCV_ITS ---
Kelley Quezada Age: 80 Gender: F : 1940 Exam Date: 10/01/2020 13:48 Ordering Phys: Jo Ledezma MD Technologist: Ralf Cabral Exam Location: [facility]_ Indication: LOCALIZED SWELLING. MASS AND LUMP UPPER LIMB PROCEDURES: Venous duplex imaging was performed in only the right upper extremity. The following venous structures were evaluated: internal jugular vein, subclavian vein, axillary vein, and brachial veins. In addition, the basilic vein, cephalic vein, radial vein, and ulnar vein. Serial compression, augmentation maneuvers, and spectral Doppler flow evaluation were performed. FINDINGS: Normal 2-D, color Doppler and phasicity noted in the bilateral upper extremity venous system extending from the internal jugular veins through the main forearms. No thrombosis or occlusion noted. Complex fluid collection anterior to the glenohumeral joint without increased vascularity. Collection measures 2.4 x 2.6 cm. No blood flow to this area. Also scanned patient directed area out/upper right arm. No abnormalities visualized within this area. CONCLUSIONS No right upper extremity DVT. Complex collection near the glenohumeral joint as likley due to synovitis or joint arthropathy. Consider follow up MRI. Dr. Whit Dunlap DO (Electronically Signed) Final Date: 01 October 2020 14:46 S
== END 2020-10-01 13:35 | disposition home or self-care (01) ==
LOC: RAD 13:36
PROVIDERS: PCP Family Medicine; Visit Provider Family Medicine
DX: R22.31 Localized swelling, mass and lump, right upper limb (principal)
CPT/HCPCS: 93971

== ENCOUNTER → 2020-10-20 14:09 | Outpatient (BNVA) | payer MEDICARE, SELFPAY | PROVIDERS: PCP Family Medicine; Visit Provider Family Medicine | DX: E03.9 Hypothyroidism, unspecified (principal); Z13.6 Encounter for screening for cardiovascular disorders; E78.2 Mixed hyperlipidemia | CPT/HCPCS: 80053; 80061; 83036; 84443; 85025 ==

== ENCOUNTER 2020-12-01 14:24 | Outpatient (CLI) | payer MEDICARE, OTHER, SELFPAY ==
--- NOTE | 2020-12-01 14:28 | CT_ITS ---
WS: [id number] CT RIGHT SHOULDER WITH CONTRAST. HISTORY: M25.511 - Pain in right shoulder Technique: All CT scans at [facility] use at least one of these dose optimization techniq ues: automated exposure control; mA and/or kV adjustment per patient size (includes targeted exams wh ere dose is matched to clinical indication); or iterative reconstruction. DLP: 818.94 mGycm COMPARISON: None available. Contrast: Omnipaque 300; 95 cc. No acute fracture or dislocation. There is mild narrowing of the glenohumeral joint and AC joint. Hum eral head is slightly high riding. There is very mild narrowing of the acromiohumeral joint space. T here is mild atrophy of the supraspinatus muscle. There is a small fluid collection measuring 1.7 cm adjacent to the supraspinatus muscle and tendon an terior to the glenohumeral joint. This may be a small amount of fluid in the bursa or fluid along the tendon sheath of the supraspinatus muscle. Calcifications are probably dystrophic in the central RIGHT breast from prior surgery. Moderate eleva tion of the RIGHT diaphragm. CT/CT shoulder RT w con [id number] IMPRESSION: 1. No acute RIGHT shoulder fracture. 2. Small amount of fluid along the supraspinatus muscle and tendon may be burs al distention or fluid from rotator cuff tear. 3. Mild supraspinatus atrophy.
[2020-12-01 15:08] LABS: Blood Urea Nitrogen 15 mg/dL (8-23)
[2020-12-01] MEDS: iohexol 300 mg/mL 100 mL Btl IV (15:09)
== END 2020-12-01 14:25 | disposition home or self-care (01) ==
LOC: RADWPI 14:25
PROVIDERS: PCP Family Medicine; Visit Provider Family Medicine
DX: M25.511 Pain in right shoulder (principal)
CPT/HCPCS: 73201; 82565; 84520; Q9967

== ENCOUNTER → 2020-12-21 14:15 | Outpatient (BNVA) | payer MEDICARE, OTHER, SELFPAY | PROVIDERS: PCP Family Medicine; Referring Provider Family Medicine; Visit Provider Orthopaedic Surgery | DX: M25.511 Pain in right shoulder (principal); S42.141A Displaced fracture of glenoid cavity of scapula, right shoulder, initial encounter for closed fracture | CPT/HCPCS: 73030 ==

== ENCOUNTER 2020-12-27 11:12 | Outpatient (CLI) | payer MEDICARE, OTHER, SELFPAY ==
--- NOTE | 2020-12-27 11:16 | MM_ITS ---
WS: [id number] BILATERAL DIGITAL DIAGNOSTIC MAMMOGRAM MAMMOGRAPHY WITH CAD CLINICAL INFORMATION: HX OF BREAST CA HISTORY: COMPARISON: [id number] TECHNIQUE: Bilateral CC, MLO, and ML views. FINDINGS: Scattered fibroglandular densities bilaterally. Lucent centered and dystrophic calcifications. Right breast lumpectomy with treatment-related changes. Vascular calcifications. No suspicious focal mass, asymmetry, calcifications, or architectural distortion. No evidence of elvis gnancy. MM/[place] [id number] IMPRESSION: BI-RADS: 2-Benign FOLLOW UP: 1 Year Follow-up Recommend return to annual diagnostic mammography.
== END 2020-12-27 11:13 | disposition home or self-care (01) ==
LOC: RADSHAW 11:15
PROVIDERS: PCP Family Medicine; Visit Provider Internal Medicine Hematology & Oncology
DX: Z85.3 Personal history of malignant neoplasm of breast (principal)
CPT/HCPCS: 77066

== ENCOUNTER 2021-01-11 05:52 | Outpatient (CLI) | payer MEDICARE, OTHER, SELFPAY ==
[2021-01-11 14:25] LABS: Basophils % 0.4 %; Eosinophils # 0.1 10^3/uL (0.0-0.8); Eosinophils % 1.5 %; Hematocrit 44.3 % (37.0-47.0); Hemoglobin 13.5 g/dL (11.5-15.3); Lymphocytes # 1.9 10^3/uL (0.8-4.8); Lymphocytes % 24.6 %; Mean Corpuscular HGB Conc 30.5 g/dL (30.0-36.0); Mean Corpuscular Hemoglobin 29.7 pg (28.0-34.0); Mean Corpuscular Volume 97.4 fL (81-99); Mean Platelet Volume 9.3 fL (7.4-10.4); Monocytes # 0.5 10^3/uL (0.2-0.9); Monocytes % 6.5 %; Neutrophils # 5.05 10^3/uL (1.8-7.7); Neutrophils % 66.6 %; Nucleated Red Blood Cells % 0 %; Platelet Count 238 10^3/cmm (130-400); Red Blood Count 4.55 10^6/uL (4.1-5.3); Red Cell Distribution Width 13.4 % (12.1-15.1); White Blood Count 7.6 10^3/uL (4.0-10.0)
[2021-01-11 14:43] LABS: Alanine Aminotransferase 9 U/L (0-33); Albumin Level 3.9 g/dL (3.5-5.2); Alkaline Phosphatase 89 IU/L (35-105); Aspartate Amino Transferase 13 U/L (0-32); Blood Urea Nitrogen 16 mg/dL (8-23); Calcium 8.2 mg/dL (8.5-10.5); Carbon Dioxide 32 mmol/L (22-29); Chloride 99 mmol/L (98-107); Globulin 3.4 g/dL (1.3-4.6); Glucose 110 mg/dL (65-115); Osmolality Calculated 290 mOsm/kg (285-295); Sodium 139 mmol/L (136-145); Total Bilirubin 0.3 mg/dL (0.15-1.2); Total Protein 7.3 g/dL (6.6-8.7)
--- NOTE | 2021-01-11 15:51 | ONC FU_ITS ---
Dr. Ortiz follow up note Patient: Kelley Quezada Unit #: [id number]: 1940 Dicatated By: Sonido Ortiz M.D.Date of Visit:January 11, 2021 Onc Med Follow-up/Prog Note History of Present Illness: Mrs. Quezada is a 80-year-old female with recent history of newly diagnosed breast cancer. Per Mrs. Quezada report she had noticed a right breast mass for which she went to see Dr. Holm. He ordered mammogram which was done on 04/02/2018 and it showed ill-defined focal asymmetric measuring 5 cm x 2.5 cm. 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 The pathology revealed a Ki-67 analysis of 33% which is reported as high. ER was less than 1% MD was less than 1% HER-2/neil by IHC was 1+. The HER-2/neil overexpression was negative by IHC and over amplification by FISH. Patient was referred to Dr. Solorio for evaluation. Dr. Solorio then referred her to us for further plan of care. It was recommended that she undergo neoadjuvant chemotherapy with Cytoxan Taxotere. She started on neoadjuvant chemotherapy with Cytoxan/Taxotere on 06/04/2018 Mrs. Quezada underwent staging imaging with PET CT on 05/25/2018. There was the right central breast mass noted to be 4.7 x 2.4 cm with an SUV of 2.3. There are no findings to indicate local or distant metastatic disease. She began neoadjuvant chemotherapy on 06/04/2018 with cyclophosphamide and docetaxel. She underwent follow-up right limited breast ultrasound on 07/12/2018 after she had received 2 cycles of chemotherapy. The ultrasound did report interval response to chemotherapy as the mass did measure 3.6 x 2.9 x 3.1 cm as compared to 4.7 x 2.4 cm on the PET CT from 05/25/2018.Follow-up right breast mammogram done on 08/22/2018 showed significant reduction in right breast mass now measures 1 x 1.6 x 2 cm compared to 4.7 x 2.4 prior to neoadjuvant chemotherapy Underwent lumpectomy with right axillary sentinel lymph node biopsy on 09/19/2018, final pathology report showed multifocal nests of tumor estimated 1 cm aggregate dimension, with positive surgical margin and she underwent reexcision and achieved clear margins. And right axillary sentinel lymph node was positive for metastatic infiltrating lobular carcinoma. ER/MD negative, HER-2/neil negative, Ki-67 33% postlumpectomy surgical wound has healed up pretty good. Was offered adjuvant chemotherapy with oral Xeloda due to being high risk for recurrence. Patient did not start Xeloda because of cardiac issues, recently underwent cardiac monitoring which shows mild bradycardia with occasional PACs, as per patient she was on beta eileen, her dose was adjusted with that her heart rate did improve she also had echocardiogram done on 12/27/2018 which showed ejection fraction 75%. Planning was to give her 4-6 cycles of modified dose of Xeloda, 2 weeks on 1 week off followed by postlumpectomy radiation therapy Patient started taking Xeloda on 01/07/2019 and took it for 3 days then developed severe nausea vomiting and diarrhea and and also felt numbness in her left face and left hand, and it also resolved on his own. Call the office and at that time she was told to quit taking Xeloda Status post postlumpectomy radiation to her right breast completed on 03/18/2019 .Mammogram done on 08/01/2019 showed BI-RADS 2, benign Patient has history of chronic back pain but recently become progressive, for which bone scan was done on January 26, 2020 which showed no evidence of metastatic disease but findings consistent with osteoarthritis and plain x-ray of lumbar spine showed scoliotic curve convex to the left, degenerative arthritis with degenerative disc disease. Follow-up mammogram done on December 27, 2020 shows BI-RADS 2, benign Came for follow-up, denies any specific complaints, no fever chills, no nausea or vomiting, no diarrhea or constipation, her back pain is much better since she has a nerve stimulator placed in her spine on October 16, 2020, no new bony pains, no jaundice, no weight loss, appetite is good Medications: Calcium 500 + D3 1 Tablet (of 500-200 mg - Units) Oral daily, ChlordiazePOXIDE HCl 1 Capsule (of 10 mg) Oral at bedtime, CloNIDine HCl 1 Tablet (of 0.1 mg) Oral b.i.d., HydroCHLOROthiazide 1 Tablet (of 25 mg) Oral daily, levothyroxin 1 Tablet daily, lisinopril 1 Tablet b.i.d., Loratadine 1 Tablet (of 10 mg) Oral daily, Lovastatin 1 Tablet (of 20 mg) Oral b.i.d., Metoprolol Tartrate 1 Tablet (of 50 mg) Oral b.i.d., Omeprazole 1 Tablet (of 20 mg) Tablet, enteric coated Oral daily, Vitamin C 1 Tablet (of 500 mg) Oral daily Allergies: adhesive tape, Biaxin, and Penicillins. Review of Systems: Review of Systems is not available for this patient. Vital Signs: Performed on January 11, 2021 14:25 Height - 65.50 in Weight - 206.4 lbs (HIGH) BSA - 2.02 sq.m BMI - 33.82 (HIGH) Temperature - 97.5 F (LOW) Pulse - 74 /min Respiration - 18 /min BP - 181/98 mm(hg) (HIGH) O2 Sat - 97 % Pain - 0 Performance Status: 0 - Fully active, able to carry on all predisease activities without restrictions. (ECOG) Physical Examination: Respiratory - Lungs are clear to auscultation, Cardiovascular - Regular rate and rhythm of heart, Gastrointestinal - Soft, bowel sounds present, Extremities - No visible edema or rash. Lab/Imaging: Most recent lab results are not available for this patient. Impression: Infiltrating lobular carcinoma of right breast status post ultrasound guided biopsy done on 04/22/2018 Treated with neoadjuvant chemotherapy with Cytoxan and Taxotere from 06/04/2018 till 08/06/2018 with good response per follow-up sonogram of right breast underwent right lumpectomy with right axillary lymph node biopsy on 09/19/2018 showed multifocal nests of tumor, estimated 1 cm aggregate dimension pT1b, positive surgical margin, required reexcision to achieve clear margins. Axillary lymph node was positive for metastatic disease pN1b ER MD negative HER-2/neil negative, Ki-67 33% which is high Mammogram done on 04/02/2018 showed 5 x 2.5 cm, ill-defined focal asymmetric in the right breast ?T3 CT PET scan done on 05/25/2018 showed 4.7 x 2.2 cm mass with SUV of 2.3 with no findings suggestive of local or distant metastatic disease Mild renal insufficiency creatinine 1.5 Started on neoadjuvant chemotherapy with Cytoxan and Taxotere, with Neulasta support on 06/04/2018.and concluded 4 cycle on 08/06/18 . Right breast sonogram done after 2 cycles on 07/12/2018 showed 3.6 x 2.9 x 3.1 cm mass compared to 4.7 x 2.2 cm mass seen on CT PET scan on 05/25/2018 Follow-up mammogram done after 4 cycles on 08/22/2018 showed good response to neoadjuvant chemotherapy and now tumor measures 1 x 1.6 x 2 cm compared to 4.7 x 2 4 cm prior to the neoadjuvant chemotherapy Underwent lumpectomy and sentinel lymph node biopsy as mentioned above on 09/19/2018, Her lumpectomy specimen showed viable disease she was offered adjuvant chemotherapy with oral Xeloda and patient start taking oral Xeloda on 01/07/2019 and within 3 days she developed severe nausea vomiting and diarrhea, no fever but tender mouth with no mouth sores. And also developed left facial numbness and left hand numbness, patient was advised to quit taking Xeloda immediately, her symptoms improved on her own. Considering her age, comorbid condition and related side effect of oral Xeloda and conflicting data on oral Xeloda in adjuvant setting, it was decided to discontinue adjuvant therapy and rather observe with active surveillance, Chronic back pain now with neurostimulator in the spine placed on October 16, 2020 Follow-up mammogram done on December 27, 2020 showed BI-RADS 2, benign Plan: Discussed with patient regarding her labs white blood count 7.6 hemoglobin 13.5 hematocrit 44.3 platelets 238,000 CMP within normal limits except creatinine 1.2 Clinically, patient doing well with no signs symptom suggestive of recurrence of disease, her lab work-up is within normal range and follow-up mammogram also showed no obvious abnormality Return to clinic in 6 months with CBC CMP and will continue with yearly mammogram Signed By: Sonido Ortiz M.D. <<Signature on File>>
== END 2021-01-11 05:53 | disposition home or self-care (01) ==
LOC: ONCMED 05:55
PROVIDERS: PCP Family Medicine; Visit Provider Internal Medicine Hematology & Oncology
DX: Z08 Encounter for follow-up examination after completed treatment for malignant neoplasm (principal); Z85.3 Personal history of malignant neoplasm of breast; N17.9 Acute kidney failure, unspecified; Z90.11 Acquired absence of right breast and nipple; Z79.899 Other long term (current) drug therapy; Z92.21 Personal history of antineoplastic chemotherapy
CPT/HCPCS: 36415; 80053; 85025; 99214

== ENCOUNTER → 2021-04-11 12:35 | Outpatient (BNVA) | payer MEDICARE, OTHER, SELFPAY | PROVIDERS: PCP Family Medicine; Visit Provider Family Medicine | DX: E03.9 Hypothyroidism, unspecified (principal); E78.2 Mixed hyperlipidemia; I10 Essential (primary) hypertension | CPT/HCPCS: 80053; 80061; 84443; 85025 ==

== ENCOUNTER → 2021-06-06 16:27 | Outpatient (BNVA) | payer MEDICARE, OTHER, SELFPAY | PROVIDERS: PCP Family Medicine; Visit Provider Nurse Practitioner Family | DX: J01.40 Acute pansinusitis, unspecified (principal) | CPT/HCPCS: 87635 ==

== ENCOUNTER → 2021-06-10 15:21 | Outpatient (BNVA) | payer MEDICARE, OTHER, SELFPAY | PROVIDERS: PCP Family Medicine | DX: Z20.822 Contact with and (suspected) exposure to COVID-19 (principal); J98.8 Other specified respiratory disorders; R05.9 Cough, unspecified; J40 Bronchitis, not specified as acute or chronic; R06.02 Shortness of breath; J01.40 Acute pansinusitis, unspecified; R09.81 Nasal congestion; J01.41 Acute recurrent pansinusitis | CPT/HCPCS: 71046; 87635 ==

== ENCOUNTER → 2021-06-23 12:30 | Outpatient (BNVA) | payer MEDICARE, OTHER, SELFPAY | PROVIDERS: PCP Family Medicine; Visit Provider Nurse Practitioner Family | DX: I49.9 Cardiac arrhythmia, unspecified (principal); R06.02 Shortness of breath | CPT/HCPCS: 80053; 85025; 85379 ==

== ENCOUNTER → 2021-06-27 14:41 | Outpatient (BNVA) | payer MEDICARE, OTHER, SELFPAY | PROVIDERS: PCP Family Medicine; Visit Provider Nurse Practitioner Family | DX: J06.9 Acute upper respiratory infection, unspecified (principal); R09.81 Nasal congestion; I49.9 Cardiac arrhythmia, unspecified; R06.02 Shortness of breath | CPT/HCPCS: 85379; 87400 ==

== ENCOUNTER → 2021-07-19 10:30 | Outpatient (BNVA) | payer MEDICARE, OTHER, SELFPAY | PROVIDERS: PCP Family Medicine; Visit Provider Internal Medicine Hematology & Oncology | DX: C50.919 Malignant neoplasm of unspecified site of unspecified female breast (principal) | CPT/HCPCS: 80053; 85025 ==

== ENCOUNTER 2021-07-20 13:43 | Outpatient (CLI) | payer MEDICARE, OTHER, SELFPAY ==
--- NOTE | 2021-07-20 16:40 | ONC FU_ITS ---
Dr. Ortiz follow up note Patient: Kelley Quezada Unit #: [id number]: 1940 Dicatated By: Sonido Ortiz M.D.Date of Visit:Jul 20, 2021 Onc Med Follow-up/Prog Note History of Present Illness: Mrs. Quezada is a 80-year-old female with recent history of newly diagnosed breast cancer. Per Mrs. Quezada report she had noticed a right breast mass for which she went to see Dr. Holm. He ordered mammogram which was done on 04/02/2018 and it showed ill-defined focal asymmetric measuring 5 cm x 2.5 cm. 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 The pathology revealed a Ki-67 analysis of 33% which is reported as high. ER was less than 1% CA was less than 1% HER-2/neil by IHC was 1+. The HER-2/neil overexpression was negative by IHC and over amplification by FISH. Patient was referred to Dr. Solorio for evaluation. Dr. Solorio then referred her to us for further plan of care. It was recommended that she undergo neoadjuvant chemotherapy with Cytoxan Taxotere. She started on neoadjuvant chemotherapy with Cytoxan/Taxotere on 06/04/2018 Mrs. Quezada underwent staging imaging with PET CT on 05/25/2018. There was the right central breast mass noted to be 4.7 x 2.4 cm with an SUV of 2.3. There are no findings to indicate local or distant metastatic disease. She began neoadjuvant chemotherapy on 06/04/2018 with cyclophosphamide and docetaxel. She underwent follow-up right limited breast ultrasound on 07/12/2018 after she had received 2 cycles of chemotherapy. The ultrasound did report interval response to chemotherapy as the mass did measure 3.6 x 2.9 x 3.1 cm as compared to 4.7 x 2.4 cm on the PET CT from 05/25/2018.Follow-up right breast mammogram done on 08/22/2018 showed significant reduction in right breast mass now measures 1 x 1.6 x 2 cm compared to 4.7 x 2.4 prior to neoadjuvant chemotherapy Underwent lumpectomy with right axillary sentinel lymph node biopsy on 09/19/2018, final pathology report showed multifocal nests of tumor estimated 1 cm aggregate dimension, with positive surgical margin and she underwent reexcision and achieved clear margins. And right axillary sentinel lymph node was positive for metastatic infiltrating lobular carcinoma. ER/CA negative, HER-2/neil negative, Ki-67 33% postlumpectomy surgical wound has healed up pretty good. Was offered adjuvant chemotherapy with oral Xeloda due to being high risk for recurrence. Patient did not start Xeloda because of cardiac issues, recently underwent cardiac monitoring which shows mild bradycardia with occasional PACs, as per patient she was on beta eileen, her dose was adjusted with that her heart rate did improve she also had echocardiogram done on 12/27/2018 which showed ejection fraction 75%. Planning was to give her 4-6 cycles of modified dose of Xeloda, 2 weeks on 1 week off followed by postlumpectomy radiation therapy Patient started taking Xeloda on 01/07/2019 and took it for 3 days then developed severe nausea vomiting and diarrhea and and also felt numbness in her left face and left hand, and it also resolved on his own. Call the office and at that time she was told to quit taking Xeloda Status post postlumpectomy radiation to her right breast completed on 03/18/2019 .Mammogram done on 08/01/2019 showed BI-RADS 2, benign Patient has history of chronic back pain but recently become progressive, for which bone scan was done on January 26, 2020 which showed no evidence of metastatic disease but findings consistent with osteoarthritis and plain x-ray of lumbar spine showed scoliotic curve convex to the left, degenerative arthritis with degenerative disc disease. Follow-up mammogram done on December 27, 2020 shows BI-RADS 2, benign Came for follow-up, denies any specific complaints, except productive cough with whitish phlegm, postnasal discharge but no fever chills,, no wheezing or shortness of breath, no nausea or vomiting, no diarrhea constipation, no hemoptysis or hematemesis, no chest pain or palpitation, no new bony pains. Medications: Calcium 500 + D3 1 Tablet (of 500-200 mg - Units) Oral daily, ChlordiazePOXIDE HCl 1 Capsule (of 10 mg) Oral at bedtime, CloNIDine HCl 1 Tablet (of 0.1 mg) Oral b.i.d., HydroCHLOROthiazide 1 Tablet (of 25 mg) Oral daily, levothyroxin 1 Tablet daily, lisinopril 1 Tablet b.i.d., Loratadine 1 Tablet (of 10 mg) Oral daily, Lovastatin 1 Tablet (of 20 mg) Oral b.i.d., Metoprolol Tartrate 1 Tablet (of 50 mg) Oral b.i.d., Omeprazole 1 Tablet (of 20 mg) Tablet, enteric coated Oral daily, Vitamin C 1 Tablet (of 500 mg) Oral daily Allergies: adhesive tape, Biaxin, and Penicillins. Review of Systems: Review of Systems is not available for this patient. Vital Signs: Performed on Jul 20, 2021 14:07 Height - 65.50 in Weight - 203.4 lbs (LOW) BSA - 2.00 sq.m BMI - 33.33 (HIGH) Temperature - 98.2 F (LOW) Pulse - 53 /min (LOW) Respiration - 18 /min BP - 168/84 mm(hg) (HIGH) O2 Sat - 94 % (LOW) Pain - 8 Fatigue - 6 Performance Status: 0 - Fully active, able to carry on all predisease activities without restrictions. (ECOG) Physical Examination: Respiratory - Lungs are clear to auscultation, Cardiovascular - Regular rate and rhythm of heart, Gastrointestinal - Soft, bowel sounds present, Extremities - No visible edema. Lab/Imaging: Test performed on Jul 19, 2021 14:06 Glucose 93 mg/dL BUN 14 mg/dL Creatinine 1.2 mg/dL Cr Clearance (Est) 59.10 mL/min Sodium 132 mmol/L Potassium 3.8 mmol/L Chloride 91 mmol/L CO2 25 mmol/L Calcium 8.0 mg/dL Protein, Total 6.2 g/dL Albumin 3.9 g/dL Globulin 2.3 g/dL Bilirubin, Total 0.4 mg/dL Alkaline Phosphatase 67 International Units/L AST (SGOT) 17 International Units/L ALT (SGPT) 10 International Units/L WBC 6.8 10^9/L RBC 4.35 10^12/L HGB 13.0 g/dL HCT 41.4 % MCV 95.2 fl MCH 29.9 pg MCHC 31.4 g/dL RDW 13.2 % Platelet Count 268 10^9/L MPV 10.4 fL Neutrophils (Gran) 4.19 10^9/L Lymphocytes 1.836 10^9/L Monocytes 0.5644 10^9/L Eosinophils 0.1292 10^9/L Basophils 0.0272 10^9/L Impression: Infiltrating lobular carcinoma of right breast status post ultrasound guided biopsy done on 04/22/2018 Treated with neoadjuvant chemotherapy with Cytoxan and Taxotere from 06/04/2018 till 08/06/2018 with good response per follow-up sonogram of right breast underwent right lumpectomy with right axillary lymph node biopsy on 09/19/2018 showed multifocal nests of tumor, estimated 1 cm aggregate dimension pT1b, positive surgical margin, required reexcision to achieve clear margins. Axillary lymph node was positive for metastatic disease pN1b ER CA negative HER-2/neil negative, Ki-67 33% which is high Mammogram done on 04/02/2018 showed 5 x 2.5 cm, ill-defined focal asymmetric in the right breast ?T3 CT PET scan done on 05/25/2018 showed 4.7 x 2.2 cm mass with SUV of 2.3 with no findings suggestive of local or distant metastatic disease Mild renal insufficiency creatinine 1.5 Started on neoadjuvant chemotherapy with Cytoxan and Taxotere, with Neulasta support on 06/04/2018.and concluded 4 cycle on 08/06/18 . Right breast sonogram done after 2 cycles on 07/12/2018 showed 3.6 x 2.9 x 3.1 cm mass compared to 4.7 x 2.[address] seen on [address] PET scan on 05/25/2018 Follow-up mammogram done after 4 cycles on 08/22/2018 showed good response to neoadjuvant chemotherapy and now tumor measures 1 x 1.6 x 2 cm compared to 4.7 x 2 4 cm prior to the neoadjuvant chemotherapy Underwent lumpectomy and sentinel lymph node biopsy as mentioned above on 09/19/2018, Her lumpectomy specimen showed viable disease she was offered adjuvant chemotherapy with oral Xeloda and patient start taking oral Xeloda on 01/07/2019 and within 3 days she developed severe nausea vomiting and diarrhea, no fever but tender mouth with no mouth sores. And also developed left facial numbness and left hand numbness, patient was advised to quit taking Xeloda immediately, her symptoms improved on her own. Considering her age, comorbid condition and related side effect of oral Xeloda and conflicting data on oral Xeloda in adjuvant setting, it was decided to discontinue adjuvant therapy and rather observe with active surveillance, Chronic back pain now with neurostimulator in the spine placed on October 16, 2020 Follow-up mammogram done on December 27, 2020 showed BI-RADS 2, benign Plan: Discussed with patient regarding her labs done on July 09, 2021 white blood count 6.8 hemoglobin 13 hematocrit 41.4 platelets 268,000 CMP within normal limit except sodium 132, creatinine 1.2 Clinically, patient doing well with no new signs symptoms history of recurrence of disease her lab work-up is within normal range except mild renal insufficiency and mild hyponatremia., We will continue to monitor As far as off and on cough with whitish phlegm is concerned probably due to postnasal drip, patient was advised to try Zyrtec or Claritin or do nasal irrigation or stimulation and gargle with salt water, if there is any fever or chills, she need to call us or her PMD or go to hospital. Otherwise we will see her back in 6 months with CMP. Signed By: Sonido Ortiz M.D. <<Signature on File>>
== END 2021-07-20 13:44 | disposition home or self-care (01) ==
LOC: ONCMED 13:47
PROVIDERS: PCP Family Medicine; Visit Provider Internal Medicine Hematology & Oncology
DX: Z08 Encounter for follow-up examination after completed treatment for malignant neoplasm (principal); Z85.3 Personal history of malignant neoplasm of breast; Z90.11 Acquired absence of right breast and nipple; Z92.21 Personal history of antineoplastic chemotherapy; N28.9 Disorder of kidney and ureter, unspecified; E87.1 Hypo-osmolality and hyponatremia; Z79.899 Other long term (current) drug therapy
CPT/HCPCS: 99214

== ENCOUNTER → 2021-10-05 15:14 | Outpatient (BNVA) | payer MEDICARE, OTHER, SELFPAY | PROVIDERS: PCP Family Medicine; Visit Provider Family Medicine | DX: M25.572 Pain in left ankle and joints of left foot (principal) | CPT/HCPCS: 73610; 73630; 80048; 84550; 85651; 86431 ==

== ENCOUNTER 2021-11-22 13:41 | Outpatient (CLI) | payer MEDICARE, OTHER, SELFPAY ==
--- NOTE | 2021-11-22 14:00 | USCV_ITS ---
Kelley Quezada Age: 81 Gender: F : 1940 Exam Date: 11/22/2021 14:13 Ordering Phys: Willa Garner SUPERVISORY FORESTER Technologist: Chelo Luo Exam Location: [facility] [place] Indication: LOWER LT LEG IS RED AND SWOLLEN HISTORY: Lower Lt leg is red and swollen PROCEDURES: Venous duplex imaging was performed in only the left lower extremity. The following venous structures were evaluated: common femoral vein, profunda vein, proximal portion of the greater saphenous vein, superficial femoral vein, and the popliteal vein. In addition, the posterior tibial and peroneal trunk were evaluated. Serial compression, augmentation maneuvers, and spectral Doppler flow evaluation were performed. FINDINGS: Normal 2-D Doppler and augmentation and compressibility throughout the lower extremity venous structures. Additional imaging through the proximal calf veins also reveals no thrombus. Limited evaluation of the greater saphenous vein is patent with no thrombus. CONCLUSIONS No DVT left lower extremity. Dr. Whit Dunlap DO (Electronically Signed) Final Date: 22 November 2021 15:10 Amended: 23 November 2021 15:55 C
== END 2021-11-22 13:42 | disposition home or self-care (01) ==
LOC: RAD 13:42
PROVIDERS: PCP Family Medicine; Visit Provider Nurse Practitioner Family
DX: M79.662 Pain in left lower leg (principal); R22.31 Localized swelling, mass and lump, right upper limb
CPT/HCPCS: 93971

== ENCOUNTER 2022-01-03 15:07 | Outpatient (CLI) | payer MEDICARE, OTHER, SELFPAY ==
--- NOTE | 2022-01-03 15:20 | MM_ITS ---
WS: [id number] BILATERAL 3D TOMOSYNTHESIS DIGITAL DIAGNOSTIC MAMMOGRAPHY WITH CAD CLINICAL INFORMATION: History of Breast Cancer HISTORY: History of RIGHT breast cancer with lumpectomy. COMPARISON: December 27, 2020 TECHNIQUE: Bilateral CC, MLO, and ML views. FINDINGS: Scattered fibroglandular densities bilaterally. Postoperative changes RIGHT breast with parenchymal v olume loss due to prior lumpectomy. Associated parenchymal fibrosis is similar to previous. Dystrophi c calcifications. Vascular calcification. 11 mm ovoid asymmetric density upper quadrant posterior depth LEFT breast appears new or progressed c ompared to previous. Recommend LEFT breast diagnostic mammography with spot compression views and ult rasound for further evaluation. RIGHT breast is unchanged. MM/[place] [id number] IMPRESSION: BI-RADS: 0-Incomplete: Need additional imaging evaluation FOLLOW UP: Need Additional Imaging Recommend LEFT breast diagnostic mammography with spot compression views and ul trasound for further evaluation.a
== END 2022-01-03 15:08 | disposition home or self-care (01) ==
LOC: RAD 15:10
PROVIDERS: PCP Family Medicine; Visit Provider Family Medicine
DX: Z85.3 Personal history of malignant neoplasm of breast (principal)
CPT/HCPCS: 77066

== ENCOUNTER 2022-01-15 23:34 | Emergency (ER) | payer MEDICARE, OTHER, SELFPAY ==
--- NOTE | 2022-01-15 23:35 | W.ED.UPPEXIN ---
HPI - Extremity Injury (Upper) General: Chief Complaint: Fall Stated Complaint: fall Time Seen by Provider: 01/15/22 23:34 History of Present Illness: Ms. Quezada is a 81-year-old lady with multiple medical comorbidities not currently on anticoagulation who presents to the emergency department due to fall. She reports being at her baseline health past few days. She had a fall with simply tripping. She thinks that she struck her right shoulder. She denies head strike or loss of consciousness. Denies other pain except for her shoulder. Symptoms are worse with movement and palpation. No numbness or tingling. Currently mild to moderate intensity but worse with movement. No other specific changes in health, exacerbating, or alleviating factors identified. Onset (ago): minute(s) Place: home Severity: moderate Exacerbating factors: movement of extremity Context: fall Review of Systems General: Reports: 10 or more systems reviewed and unremarkable except in HPI and below PFSH ED PFSH: Medical History Aortic valve sclerosis Breast cancer, left Essential (primary) hypertension Intervertebral disc disorder with radiculopathy of lumbosacral region Joint instability Lumbar stenosis with neurogenic claudication Mixed hyperlipidemia Osteoarthritis of lumbar spine Spondylolisthesis of lumbar region Surgical History History of lumpectomy of right breast History of right hip replacement 2012 Dr. Nu Hubbard [facility] Hx of appendectomy Hx of foot surgery bilateral Hx of left breast biopsy Hx of total thyroidectomy Hx of tubal ligation Family History Other Family history non-contributory Social History Smoking and tobacco status: never smoked Second hand smoke exposure: No Alcohol intake: never Caregiver/support person: Yes Lives independently: Yes Household members: spouse Marital status: Current occupational status: retired History of recent travel: No Current gender identity: Female Special temi needs: No Agree to transfusion: Yes Physical Exam Const: COMMON NORMALS: alert GENERAL APPEARANCE: cooperative and well developed HENMT: COMMON NORMALS: normocephalic and atraumatic HEAD & SCALP: normocephalic and atraumatic Eye: COMMON NORMALS: conjunctivae normal CONJUNCTIVA: Yes conjunctivae normal SCLERA: sclerae normal Neck/C-Spine: COMMON NORMALS: supple GENERAL: Yes trachea midline Resp: COMMON NORMALS: normal respiratory effort and clear to auscultation bilaterally EFFORT & INSPECTION: Yes able to speak in complete sentences AUSCULTATION: clear to auscultation bilaterally Cardio: COMMON NORMALS: regular rate and regular rhythm RATE: regular rate RHYTHM: regular rhythm GI: COMMON NORMALS: Soft to palpation PALPATION: Yes Soft to palpation and No Tenderness to palpation present (GI) PERCUSSION: normal to percussion Extremity: NARRATIVE EXTREMITY EXAM: Right shoulder with questionable deformity, distal CMS intact. Held in position of comfort. GENERAL: Yes normal exam except as noted and No edema Neuro: COMMON NORMALS: moves all extremities SENSORIUM/ORIENTATION: Yes alert and No Orientation impaired Psych: COMMON NORMALS: mental status grossly normal and Normal thought process present THOUGHT PROCESS: Normal thought process present Course ED course: - Patient was seen and evaluated by me at bedside - Patient placed on cardiac monitors, IV access obtained - Initial evaluation notable for exam as above. Initially patient did not want analgesia. Distal CMS intact. Head to toe exam performed. - Labs and xrays personally interpreted by me - Imaging notable for comminuted humeral head and neck fracture - Analgesia given. Discussed with orthopedics, patient placed in sling. - Upon serial reexamination after treatment the patient was mildly improved - Based on patient history, evaluation, and testing as interpreted the most likely cause of the patient's condition is fall with isolated shoulder injury - The results of ED evaluation were discussed with the patient including prescriptions and/or symptomatic cares (if applicable) including appropriate and responsible use, followup plan, and return precautions. The patient verbalized understanding and felt safe for discharge. - Patient discharged in satisfactory condition. Note: Click bubbles or prepopulated goldman in note writing are used for assistance with data collection and billing and are inherently more limited than narrative and other text portions of this note. Please use narrative for additional clinical history and defer to narrative/free test for any case of contradictory information. If information appears in only free text or click bubble it should be considered present or absent as reported. Please contact note group underwriter for clarifications of clinical information or contradictory information. MDM is a brief summary, contradictory or erroneous seeming information should be clarified and full note should be reviewed. Vital Signs: Vital signs: Vital Signs Temperature 98.1 F 01/16/22 03:13 Pulse Rate 62 01/16/22 03:13 Respiratory Rate 18 01/16/22 03:13 Blood Pressure 154/96 01/16/22 03:13 Pulse Oximetry 97 01/16/22 03:13 MDM - Extremity Injury (Upper) Medical Decision Making 81-year-old lady presenting with shoulder injury secondary to trip and fall at home, no prodromal symptoms, no other injuries identified at head to toe exam. Found to have humeral head and neck fracture with impaction. Placed in sling and patient will have outpatient follow-up with orthopedics. Satisfactory for outpatient management with analgesia. Medical Records I reviewed the patient's medical records. Lab Data I reviewed the patient's lab results. Radiology Impressions Chest X-Ray 01/15/22 23:44 IMPRESSION: 1. Possible right humeral neck fracture, dedicated shoulder radiographs advised depending on the clinical scenario. 2. Cardiomegaly. 3. Stable right diaphragmatic eventration. 4. Spinal stimulator wire seen. Shoulder X-Ray 01/15/22 23:44 IMPRESSION: 1. Comminuted humeral head and neck fracture with some impaction of the fracture fragments. 2. Right upper lobe calcified granuloma. Discharge Plan Discharge Patient Disposition: Home Clinical Impression: Fracture of proximal humerus Condition: Stable Prescriptions: New oxycodone 5 mg tablet 5 mg PO Q4H PRN (Reason: pain) Qty: 30 0RF No Action ascorbic acid (vitamin C) 1,000 mg tablet 1 gm PO DAILY 0RF fluticasone propionate [Flonase Allergy Relief] 50 mcg/actuation spray,suspension 1 spray INTRANASAL BID PRN0RF indomethacin 50 mg capsule 50 mg PO TID Qty: 30 1RF Rx Instructions: administer with food or milk celecoxib [Celebrex] 200 mg capsule 200 mg PO BID Qty: 60 2RF (DME) shoulder immobilizer See Rx Instructions .Route .MEDSUPPLY Qty: 1 0RF Rx Instructions: As directed tramadol 50 mg tablet 50 mg PO Q6H PRN (Reason: pain) Qty: 30 0RF Rx Instructions: take 1 tablet every 6 hours as needed. omeprazole 40 mg capsule,delayed release(DR/EC) See Rx Instructions .ROUTE .COMPLEX Qty: 90 1RF Dose Instruction: Take 1 capsule by mouth once daily Rx Instructions: Take 1 capsule by mouth once daily levothyroxine 125 mcg tablet See Rx Instructions .ROUTE .COMPLEX Qty: 90 1RF Dose Instruction: Take 1 tablet by mouth once daily Rx Instructions: Take 1 tablet by mouth once daily metoprolol tartrate 50 mg tablet See Rx Instructions .ROUTE .COMPLEX Qty: 180 0RF Dose Instruction: Take 1 tablet by mouth twice daily Rx Instructions: Take 1 tablet by mouth twice daily chlordiazepoxide HCl 10 mg capsule 10 mg PO .qhs Qty: 90 1RF lovastatin 20 mg tablet See Rx Instructions .ROUTE .COMPLEX Qty: 180 0RF Dose Instruction: Take 2 tablets by mouth once daily Rx Instructions: Take 2 tablets by mouth once daily furosemide [Lasix] 20 mg tablet 20 mg PO QAM Qty: 30 2RF lisinopril 40 mg tablet See Rx Instructions .ROUTE .COMPLEX Qty: 180 0RF Dose Instruction: Take 2 tablets by mouth once daily Rx Instructions: Take 2 tablets by mouth once daily hydrochlorothiazide 25 mg tablet See Rx Instructions .ROUTE .COMPLEX Qty: 90 0RF Dose Instruction: TAKE 1 TABLET BY MOUTH ONCE DAILY IN THE MORNING Rx Instructions: TAKE 1 TABLET BY MOUTH ONCE DAILY IN THE MORNING clonidine HCl 0.1 mg tablet See Rx Instructions .ROUTE .COMPLEX Qty: 60 0RF Dose Instruction: Take 1 tablet by mouth twice daily Rx Instructions: Take 1 tablet by mouth twice daily Discharge Orders: Discharge ED (Routine); Ordered 01/16/22 Ordered By: Jim Graff Referrals: Jo Ledezma MD [Primary Care Provider] - Discharge Diet: Usual diet Discharge Activity: Limit activity as instructed Activity Restrictions/Additional Instructions: Thank you for visiting the emergency department. You were seen and evaluated for fall with shoulder pain. You are found to have a fracture of your proximal humerus. This will require outpatient follow-up with orthopedics. Will be discharged with pain medication. Please use this very cautiously and watch for signs of respiratory depression or confusion. Additionally this can cause increased risk of falls. Most common side effect is probably constipation. I recommend taking a uobi-tho-kieldkj stool softener or agent such as MiraLAX. You should use Tylenol and ibuprofen as well. I will message case management for follow-up with Dr. Barry. If you do not receive a call by Sunday please call [phone] to schedule a follow-up appointment or the main number is [phone]. Return to the emergency department for recurrent falls, uncontrolled pain, any sensory changes or color changes in your fingers, or anything else that you are concerned about and feel needs emergency department evaluation. Coding Level of Care Code ED Caddie Supervisor for Roland Arnett
[2022-01-15 23:44] VITALS: BP 182/86; PULSE 64; RESP 18; TEMP 36.7; O2SAT 97; BMI 34.3
--- NOTE | 2022-01-15 23:44 | XRR_ITS ---
PROCEDURE INFORMATION: Exam: XR Right Shoulder Exam date and time: 01/15/2022 11:52 PM Age: 81 years old Clinical indication: Injury or trauma; Fall; Blunt trauma (contusions or hematomas); Shoulder; Right; Additional info: Fall, pain TECHNIQUE: Imaging protocol: XR Right shoulder. Views: 2 or more views. COMPARISON: CR XR shoulder RT min 2V* [id number] 12/21/2020 2:21 PM FINDINGS: Bones/joints: Comminuted humeral head and neck fracture with some impaction of the fracture fragments. Lungs: Right upper lobe calcified granuloma. Soft tissues: Normal. XR/XR shoulder RT min 2V* [id number] IMPRESSION: 1. Comminuted humeral head and neck fracture with some impaction of the fracture fragments. 2. Right upper lobe calcified granuloma.
--- NOTE | 2022-01-15 23:44 | XRR_ITS ---
PROCEDURE INFORMATION: Exam: XR Chest Exam date and time: 01/15/2022 11:52 PM Age: 81 years old Clinical indication: Injury or trauma; Fall; Blunt trauma (contusions or hematomas) TECHNIQUE: Imaging protocol: XR of the chest. Views: 1 view. COMPARISON: CR XR chest 2V* [id number] 06/10/2021 3:37 PM FINDINGS: Tubes, catheters and devices: Spinal stimulator wire seen. Lungs: Unremarkable. No consolidation. Pleural spaces: Unremarkable. No pleural effusion. No pneumothorax. Heart/Mediastinum: Cardiomegaly. Diaphragm: Stable right diaphragmatic eventration. Bones/joints: Possible right humeral neck fracture, dedicated shoulder radiographs advised depending on the clinical scenario. XR/XR chest 1V portable [id number] IMPRESSION: 1. Possible right humeral neck fracture, dedicated shoulder radiographs advised depending on the clinical scenario. 2. Cardiomegaly. 3. Stable right diaphragmatic eventration. 4. Spinal stimulator wire seen.
[2022-01-16 01:17] VITALS: RESP 18
[2022-01-16] MEDS: morphine 4 mg/mL SDV 1 mL IVP (01:17)
[2022-01-16 01:18] VITALS: BP 156/95; PULSE 61; RESP 18; O2SAT 94
[2022-01-16] MEDS: ketorolac 30 mg/mL INJ 15 MG IVP (02:34)
--- NOTE | 2022-01-16 02:35 | PC.NURSE ---
patient placed in right sided arm sling . titonet tolerated procedure moderately well. patient states pain no worsening upon sling placement. patient in no obivous distress.
[2022-01-16 03:13] VITALS: BP 154/96; PULSE 62; RESP 18; TEMP 36.7; O2SAT 97
--- NOTE | 2022-01-19 06:12 | DCPLANNER ---
Addendum entered by Jessica Swan 01/22/22 09:32: Patient had a follow up appointment scheduled for 01.17.22 with ortho - patient did attend appointment. Original Note: manager home improvement had message to schedule a follow up appointment for patient with ortho. manager home improvement sent patients information to the front office staff at ortho. Patients information will be printed and reviewed. Clinic will call patient with appointment information.
== END 2022-01-16 03:20 | disposition home or self-care (01) ==
PROVIDERS: Emergency Provider Emergency Medicine; PCP Family Medicine
DX: S42.291A Other displaced fracture of upper end of right humerus, initial encounter for closed fracture (principal); S42.211A Unspecified displaced fracture of surgical neck of right humerus, initial encounter for closed fracture; W01.0XXA Fall on same level from slipping, tripping and stumbling without subsequent striking against object, initial encounter
CPT/HCPCS: 71045; 73030; 96374; 96375; 99284; J1885; J2270

== ENCOUNTER → 2022-01-17 10:23 | Outpatient (BNVA) | payer MEDICARE, OTHER, SELFPAY | PROVIDERS: PCP Family Medicine; Referring Provider Emergency Medicine; Visit Provider Physician Assistant | DX: S42.201A Unspecified fracture of upper end of right humerus, initial encounter for closed fracture (principal); W01.0XXA Fall on same level from slipping, tripping and stumbling without subsequent striking against object, initial encounter | CPT/HCPCS: 23600; 73030; 99203 ==

== ENCOUNTER 2022-01-17 13:50 | Outpatient (CLI) | payer MEDICARE, OTHER, SELFPAY | END 2022-01-17 13:51 | disposition home or self-care (01) | LOC: SPT 13:51 | PROVIDERS: PCP Family Medicine; Visit Provider Physician Assistant | DX: Z46.89 Encounter for fitting and adjustment of other specified devices (principal); S42.291D Other displaced fracture of upper end of right humerus, subsequent encounter for fracture with routine healing; X58.XXXD Exposure to other specified factors, subsequent encounter | CPT/HCPCS: 97760; L3670 ==

== ENCOUNTER 2022-01-31 06:00 | Outpatient (CLI) | payer MEDICARE, OTHER, SELFPAY | END 2022-01-31 06:01 | disposition home or self-care (01) | LOC: RAD 02-04 08:55 | PROVIDERS: PCP Family Medicine; Visit Provider Family Medicine | DX: S42.291D Other displaced fracture of upper end of right humerus, subsequent encounter for fracture with routine healing (principal); S42.211D Unspecified displaced fracture of surgical neck of right humerus, subsequent encounter for fracture with routine healing; W01.0XXD Fall on same level from slipping, tripping and stumbling without subsequent striking against object, subsequent encounter | CPT/HCPCS: 73030; 99024; 99213 ==

== ENCOUNTER → 2022-02-07 14:14 | Outpatient (BNVA) | payer MEDICARE, OTHER, SELFPAY | PROVIDERS: PCP Family Medicine; Visit Provider Internal Medicine Hematology & Oncology | DX: C50.411 Malignant neoplasm of upper-outer quadrant of right female breast (principal) | CPT/HCPCS: 80053 ==

== ENCOUNTER → 2022-02-14 10:49 | Outpatient (BNVA) | payer MEDICARE, OTHER, SELFPAY | PROVIDERS: PCP Family Medicine; Visit Provider Physician Assistant | DX: S42.291D Other displaced fracture of upper end of right humerus, subsequent encounter for fracture with routine healing (principal); X58.XXXD Exposure to other specified factors, subsequent encounter | CPT/HCPCS: 73030; 99024; 99213 ==

== ENCOUNTER 2022-02-21 06:00 | Outpatient (RCR) | payer MEDICARE, OTHER, SELFPAY | END 2022-02-23 23:59 | disposition home or self-care (01) | LOC: TPT 06:00 | PROVIDERS: PCP Family Medicine; Referring Provider Physician Assistant; Visit Provider Physician Assistant | DX: S42.291D Other displaced fracture of upper end of right humerus, subsequent encounter for fracture with routine healing (principal); X58.XXXD Exposure to other specified factors, subsequent encounter | CPT/HCPCS: 97162 ==

== ENCOUNTER 2022-02-24 06:00 | Outpatient (RCR) | payer MEDICARE, OTHER, SELFPAY | END 2022-03-26 23:59 | disposition home or self-care (01) | LOC: TPT 06:00 | PROVIDERS: PCP Family Medicine; Referring Provider Physician Assistant; Visit Provider Physician Assistant | DX: S42.291D Other displaced fracture of upper end of right humerus, subsequent encounter for fracture with routine healing (principal); X58.XXXD Exposure to other specified factors, subsequent encounter | CPT/HCPCS: 97110; 97140 ==

== ENCOUNTER 2022-03-27 06:00 | Outpatient (RCR) | payer MEDICARE, OTHER, SELFPAY | END 2022-04-26 23:59 | disposition home or self-care (01) | LOC: TPT 06:00 | PROVIDERS: PCP Family Medicine; Referring Provider Physician Assistant; Visit Provider Physician Assistant | DX: S42.291D Other displaced fracture of upper end of right humerus, subsequent encounter for fracture with routine healing (principal); X58.XXXD Exposure to other specified factors, subsequent encounter | CPT/HCPCS: 97110; 97140 ==

== ENCOUNTER → 2022-03-28 10:04 | Outpatient (BNVA) | payer MEDICARE, OTHER, SELFPAY | PROVIDERS: PCP Family Medicine; Visit Provider Physician Assistant | DX: M25.511 Pain in right shoulder (principal); M53.3 Sacrococcygeal disorders, not elsewhere classified | CPT/HCPCS: 72220; 73030; 99213 ==

== ENCOUNTER → 2022-04-11 15:31 | Outpatient (BNVA) | payer MEDICARE, OTHER, SELFPAY | PROVIDERS: PCP Family Medicine; Visit Provider Family Medicine | DX: M10.9 Gout, unspecified (principal); E78.2 Mixed hyperlipidemia; E03.9 Hypothyroidism, unspecified; I10 Essential (primary) hypertension | CPT/HCPCS: 80053; 80061; 84443; 84550; 85025 ==

== ENCOUNTER 2022-04-18 13:48 | Outpatient (CLI) | payer MEDICARE, OTHER, SELFPAY ==
--- NOTE | 2022-04-18 14:09 | MM_ITS ---
WS: [id number] LEFT 3D TOMOSYNTHESIS DIGITAL MAMMOGRAPHY WITH CAD CLINICAL INFORMATION: Spot compression and US for further evaluation needed COMPARISON: January 03, 2022 TECHNIQUE: 3 views of the left breast were obtained. FINDINGS: Scattered fibroglandular densities of the left breast. Lobulated 11 mm ovoid focal asymmetric nodular density upper inner quadrant posterior depth LEFT breast is stable compared to previous. Ultrasound described below. ULTRASOUND BREAST LEFT TECHNIQUE: Ultrasound left breast focused area of concern. CLINICAL INFORMATION: Spot compression and US for further evaluation needed FINDINGS: Ultrasound LEFT breast 9 to 11:00 position. Hypoechoic solid appearing slightly irregular lesion agustin esponds to the mammographic findings at the 10:00 position 4 cm from the nipple. This measures 7.7 x 9.5 x 6.1 mm suspicious for neoplasm. Recommend further evaluation with ultrasound-guided biopsy. LEFT axilla demonstrates enlarged axillary lymph node with loss of the normal fatty hilum measuring 2 .8 x 2.0 x 1.1 cm. Recommend further evaluation with ultrasound-guided biopsy. . MM/[place] [id number] IMPRESSION: BI-RADS: 4-Suspicious Finding-Biopsy Should Be Considered FOLLOW UP: US Guided Biopsy Recommended Recommend ultrasound-guided biopsy LEFT breast lesion and enlarged LEFT axilla ry lymph node
== END 2022-04-18 13:49 | disposition home or self-care (01) ==
LOC: RAD 13:49
PROVIDERS: PCP Family Medicine; Visit Provider Internal Medicine Hematology & Oncology
DX: Z85.3 Personal history of malignant neoplasm of breast (principal); R92.8 Other abnormal and inconclusive findings on diagnostic imaging of breast
CPT/HCPCS: 76642; 77061

== ENCOUNTER 2022-04-27 06:00 | Outpatient (RCR) | payer MEDICARE, OTHER, SELFPAY | END 2022-05-12 23:59 | disposition home or self-care (01) | LOC: TPT 06:00 | PROVIDERS: PCP Family Medicine; Visit Provider Family Medicine | DX: S42.201D Unspecified fracture of upper end of right humerus, subsequent encounter for fracture with routine healing (principal); X58.XXXD Exposure to other specified factors, subsequent encounter | CPT/HCPCS: 97110 ==

== ENCOUNTER → 2022-05-05 09:31 | Outpatient (BNVA) | payer MEDICARE, OTHER, SELFPAY | PROVIDERS: PCP Family Medicine; Visit Provider Internal Medicine Hematology & Oncology | DX: C50.411 Malignant neoplasm of upper-outer quadrant of right female breast (principal) | CPT/HCPCS: 80053 ==

== ENCOUNTER 2022-05-16 11:54 | Outpatient (CLI) | payer MEDICARE, OTHER, SELFPAY ==
--- NOTE | 2022-05-16 12:04 | US_ITS ---
WS: [id number] ULTRASOUND-GUIDED LEFT BREAST BIOPSY HISTORY: left breast mass; history of RIGHT breast cancer. COMPARISON: 04/18/2022, 01/04/2020. Procedure, risks and complications are explained to the patient. Medications are reviewed. Consent is obtained. The mass in the LEFT breast is localized with ultrasound. Mass localizes to 10:00, 4 cm from the nipp le. Skin is cleansed with ChloraPrep and anesthetized with 1% buffered lidocaine. Small dermatome is made. Under sterile conditions mass is biopsied with a 14-gauge Achieve needle. Multiple core biopsie s are performed. Material placed in formalin and sent to pathology for review. No complications encou ntered. Breast tissue marker ([employer] ultrasound enhanced ribbon): Single. Patient left the radiology suite with no complications. Patient is instructed to return to [facility] or [facility] with any concerns. US/[place] [id number] IMPRESSION: 1. Uncomplicated core needle biopsy LEFT breast mass at 10:00. PATHOLOGY: Invasive ductal carcinoma. Breast profile will be reported separatel y. RECOMMENDATION: Follow-up with oncology and surgery. 2. No abnormal lymph nodes are identified. No lymph node biopsy performed.
[2022-05-19 17:19] LABS: Breast Profile ER,PR,HER2,Ki-6 See Report
== END 2022-05-16 11:55 | disposition home or self-care (01) ==
LOC: RAD 11:55
PROVIDERS: PCP Family Medicine; Visit Provider Internal Medicine Hematology & Oncology
DX: C50.212 Malignant neoplasm of upper-inner quadrant of left female breast; Z85.3 Personal history of malignant neoplasm of breast
CPT/HCPCS: 19083; 88305; 88361; 88374

== ENCOUNTER 2022-05-23 15:45 | Oncology outpatient (recurring) (ONCR) | payer MEDICARE, OTHER, SELFPAY | END 2022-05-26 23:59 | disposition home or self-care (01) | PROVIDERS: PCP Family Medicine; Visit Provider Internal Medicine Hematology & Oncology | DX: C50.812 Malignant neoplasm of overlapping sites of left female breast (principal); Z17.0 Estrogen receptor positive status [ER+]; M51.36 Other intervertebral disc degeneration, lumbar region; M41.86 Other forms of scoliosis, lumbar region; Z92.21 Personal history of antineoplastic chemotherapy; Z85.3 Personal history of malignant neoplasm of breast; Z92.25 Personal history of immunosuppression therapy; Z87.891 Personal history of nicotine dependence | CPT/HCPCS: 99214 ==

== ENCOUNTER → 2022-05-29 13:57 | Outpatient (BNVA) | payer MEDICARE, OTHER, SELFPAY | PROVIDERS: PCP Family Medicine; Visit Provider Surgery | DX: C50.912 Malignant neoplasm of unspecified site of left female breast (principal) | CPT/HCPCS: 99203 ==

== ENCOUNTER 2022-06-15 07:46 | Outpatient (CLI) | payer MEDICARE, OTHER, SELFPAY ==
[2022-06-14 12:45] VITALS: BMI 33.3
[2022-06-15] VITALS (12 sets, daily range): BP systolic 154–195; BP diastolic 73–85; PULSE 49–70; RESP 12–26; TEMP 36.2–36.9; O2SAT 88–99
--- NOTE | 2022-06-15 | US_ITS ---
WS: [id number] ULTRASOUND-GUIDED LEFT BREAST NEEDLE LOCALIZATION HISTORY: pre-operative Procedure, risks and complications were explained to the patient. Consent is obtained. Skin is cleansed with ChloraPrep and anesthetized with 1% buffered lidocaine. Needle and guidewire pl aced to the area of concern with no complications. Ultrasound guidance performed during the needle lo calization. Guidewire is left within the lesion. Guidewire secured and no complications encountered. Patient is being transported to the OR suite. Specimen radiograph is also reviewed. The lesion is within the specimen as is the guidewire. Prior bi opsy clip is also noted within the specimen. RECOMMENDATIONS: Follow-up with surgery and oncology. US/US breast surgical specimen IMPRESSION: 1. Satisfactory LEFT breast wire localization of a mass at 10:00. 2. Specimen contains the breast lesion. PATHOLOGY RESULTS: Invasive ductal carcinoma. Negative margins.
[2022-06-15] MEDS: sodium chloride 0.9% 1,000 ML 30 ML IV (08:28)
--- NOTE | 2022-06-15 08:39 | US_ITS ---
WS: [id number] ULTRASOUND-GUIDED LEFT BREAST NEEDLE LOCALIZATION HISTORY: pre-operative Procedure, risks and complications were explained to the patient. Consent is obtained. Skin is cleansed with ChloraPrep and anesthetized with 1% buffered lidocaine. Needle and guidewire pl aced to the area of concern with no complications. Ultrasound guidance performed during the needle lo calization. Guidewire is left within the lesion. Guidewire secured and no complications encountered. Patient is being transported to the OR suite. Specimen radiograph is also reviewed. The lesion is within the specimen as is the guidewire. Prior bi opsy clip is also noted within the specimen. RECOMMENDATIONS: Follow-up with surgery and oncology. US/[place] [id number] IMPRESSION: 1. Satisfactory LEFT breast wire localization of a mass at 10:00. 2. Specimen contains the breast lesion. PATHOLOGY RESULTS: Invasive ductal carcinoma. Negative margins.
--- NOTE | 2022-06-15 08:48 | NM_ITS ---
WS: [id number] NUCLEAR MEDICINE SENTINEL LYMPH NODE IMAGING HISTORY: L Breast Biopsy COMPARISON: Prior imaging studies reviewed. TECHNIQUE: The patient was injected with 1.04 mCi of Technetium 99 ultra filtered sulfur colloid. Inj ection is intradermal in a periareolar location. Four aliquots are used. NM/NM sentinel node inject [id number] IMPRESSION: Uncomplicated LEFT breast sentinel node injection. Injection completed at 9:30 AM.
[2022-06-15 09:30] LABS: Blood Urea Nitrogen 30 mg/dL (8-23); Calcium 8.4 mg/dL (8.5-10.5); Carbon Dioxide 20 mmol/L (22-29); Creatinine Clr Calc Pharmacy 39.0466; Glucose 102 mg/dL (65-115)
--- NOTE | 2022-06-15 09:36 | W.PM.OPSUD ---
Surgery/Procedure H&P Update DATE OF PROCEDURE: June 15, 2022 DATE H&P PERFORMED: 05/29/22 PREOP DIAGNOSIS: Left breast cancer PLANNED PROCEDURE: Operation Date: 06/15/22 10:55 Proposed Procedures p Excision of Breast Mass Needle [id number]/22494/[id number]/mal neop C50.912(Left) - DO best Sparks Sentinal Lymph Node Biopsy(Left) - Brodie Coffey DO
[2022-06-15 09:48] LABS: Anion Gap 20.9 (5-19); Chloride 97 mmol/L (98-107); Osmolality Calculated 284 mOsm/kg (285-295); Potassium 3.9 mmol/L (3.5-5.1); Sodium 134 mmol/L (136-145)
--- NOTE | 2022-06-15 10:07 | ECG_ITS ---
[facility] Test Date: 2022-06-15 Pat Name: Kelley Quezada Department: Room: Gender: Female Workday Manager: : 1940 Requested By: Guillermo Mercer Order Number: [id number] Yosef MD: Mian Rose M.D. Measurements Intervals Tina Rate: 64 P: 191 ID: 366 QRS: 28 QRSD: 116 T: 55 QT: 403 QTc: 417 Interpretive Statements ELECTRONIC ATRIAL PACEMAKER MODERATE INTRAVENTRICULAR CONDUCTION DELAY [110+ ms QRS DURATION] No previous ECG available for comparison Electronically Signed On 06-15-2022 11:08:07 CDT by Mian Rose M.D. [id number]
[2022-06-15] MEDS: vancomycin 1,500 MG/300 ML PIGGYBACK 200 MG IV (12:02)
[2022-06-15] MEDS: isosulfan blue 10 mg/mL SDV 5mL SUBCUT (12:53)
--- NOTE | 2022-06-15 13:25 | P.OP_ITS ---
Operative Report Date of procedure: June 15, 2022 Pre-op diagnosis: Preop Diagnosis Left breast cancer Post-op diagnosis: same Procedure done: Left breast lumpectomy with sentinel lymph node biopsy Implants: None Specimens removed/disposition: Left sentinel lymph nodes Surgeon: Dr. Brodie Coffey DO Anesthesia: General Estimated blood loss (mL): 30 Complications: None apparent Brief History: This is a very pleasant 81-year-old female who presented to my office with ultrasound-guided biopsy proven carcinoma of the left breast. She opted for breast conserving therapy. Lumpectomy with sentinel lymph node biopsy was indicated. The risks and benefits were explained and documented. Procedure: After radiotracer was injected and wire localization was performed by radiology, the patient was brought back into the operating room. She was placed on the OR table in the supine position. The left breast and axilla were inspected prepped and draped in usual sterile fashion. Lymphazurin blue was injected underneath the left nipple and massaged for 5 minutes. A timeout was performed. All present were in agreement. A 4 cm incision was made in the left axilla. Dissection was carried down with electrocautery. The [place] counter was used to locate a sentinel lymph node. The nipple measured 910 on the [place] counter and a blue sentinel lymph node was identified in the left axilla that measured 58 on the [place] counter. A second lymph node was identified as well that measured 39 but was not blue. Both specimens were passed off to go to pathology along with the surrounding fat. Hemostasis was noted. Next, after localization a 6 cm incision was made over the mass, in the 10 o'clock position. Electrocautery was used to carve out a lumpectomy specimen. The entire needle was included. Dissection was carried down to the pectoralis major muscle. Specimen was taken out en bloc. Wire marked lateral. Short stitch marked superior. Long stitch marked anterior. Hemostasis was achieved with electrocautery. Specimen was sent to radiology who said the clip and wire were surrounded by adequate tissue margins. The dermis was approximated with 3-0 Vicryl. The skin was closed with 4-0 Vicryl in a subcuticular and running fashion. Dermabond was applied. Patient tolerated the procedure well.
[2022-06-15] MEDS: ondansetron 2 mg/ML SDV 2 mL 4 MG IVP (14:08)
[2022-06-15] MEDS: HYDROcodone-acetaminophen 7.5-325 mg Tablet 1 TAB PO (15:28)
--- NOTE | 2022-06-15 16:51 | P.ANESASSM_ITS ---
Pre-Anesthetic Assessment Height/Weight: Height 1.65 m Weight 90.718 kg Temp Pulse Resp BP Pulse Ox O2 Del Method O2 Flow Rate 98.3 F 70 16 171/85 94 10 06/15/22 14:21 06/15/22 15:01 06/15/22 15:01 06/15/22 15:01 06/15/22 15:01 06/15/22 15:01 06/15/22 14:00 Preop Diagnosis: Left breast cancer Operation Date: 06/15/22 10:55 Proposed Procedures p Excision of Breast Mass Needle [id number]/24724/19546/64389/mal neop C50.912(Left) - DO best Sparks Sentinal Lymph Node Biopsy(Left) - Brodie Coffey DO Familial anesthetic complications: none Was Beta Yuly taken within 24 hours: Yes Was Clonidine taken within 24 hours: Yes Last intake: Intake Last Liquid Date 06/14/22 Last Liquid Time 21:30 Last Solid Date 06/14/22 Last Solid Time 20:30 Social No alcohol and No tobacco Exam alert, oriented x 3, clear to auscultation bilaterally and regular rate & rhythm Airway Submandibular: within normal limits Cervical ROM: within normal limits Mallampati: Class II Dentition: false Pulmonary interstitial pulm dz CV/HEM Arrythmia and Hypertension Chronic Renal Insufficiency GI Gastroesophageal Reflux Disease Metabolic Morbid Obesity and Thyroid Disease Musc/skel Lower Back Pain and Osteoarthritis/DJD Anesthetic Plan ASA status: 3 Anesthesia: General Medications/Allergies Home Medications Medication Instructions Recorded Confirmed Last Taken Type ascorbic acid (vitamin C) 1,000 mg 1 gm PO DAILY 09/09/19 06/15/22 06/14/22 History tablet diclofenac sodium 1 % topical gel 2 g topical QID #100 grams 02/16/22 06/14/22 Unknown Rx (Voltaren Arthritis Pain) omeprazole 40 mg capsule,delayed See Rx Instructions .Route 03/06/22 06/15/22 06/15/22 Rx release .COMPLEX #90 caps tramadol 50 mg tablet 50 mg PO Q6H PRN pain #30 tabs 03/28/22 06/14/22 Unknown Rx lovastatin 20 mg tablet See Rx Instructions .Route 04/06/22 06/15/22 06/14/22 Rx .COMPLEX #180 tabs lisinopril 40 mg tablet See Rx Instructions .Route 04/17/22 06/15/22 06/14/22 Rx .COMPLEX #180 tabs clonidine HCl 0.1 mg tablet See Rx Instructions .Route 04/24/22 06/15/22 06/15/22 Rx .COMPLEX #60 tabs furosemide 20 mg tablet See Rx Instructions .Route 04/24/22 06/14/22 Unknown Rx .COMPLEX #30 tabs hydrochlorothiazide 25 mg tablet See Rx Instructions .Route 04/24/22 06/15/22 06/15/22 Rx .COMPLEX #90 tabs febuxostat 40 mg tablet (Uloric) 40 mg PO DAILY #90 tabs 05/05/22 06/14/22 Unknown Rx levothyroxine 125 mcg tablet See Rx Instructions .Route 05/11/22 06/15/22 06/15/22 Rx .COMPLEX #90 tabs lorazepam 0.5 mg tablet (Ativan) 0.5 mg PO .Q6-8H PRN anxiety #10 05/12/22 06/14/22 Unknown Rx tabs metoprolol tartrate 50 mg tablet See Rx Instructions .Route 05/19/22 06/15/22 06/15/22 Rx .COMPLEX #180 tabs chlordiazepoxide HCl 10 mg capsule 10 mg PO .qhs #30 caps 06/13/22 06/14/22 Unknown Rx hydrocodone 7.5 mg-acetaminophen 1 tab PO Q6H PRN pain #20 tabs 06/15/22 Unknown Rx 325 mg tablet Allergies Allergy/AdvReac Type Severity Reaction Status Date / Time adhesive Allergy Intermediate ALGY-Bliste Verified 06/14/22 12:39 r clarithromycin [From Biaxin] Allergy Intermediate thrush Verified 06/14/22 12:39 Penicillins Allergy Unknown Unknown Verified 06/14/22 12:39 PFS Anesthesia Medical History Aortic valve sclerosis Breast cancer, left Breast cancer, left Carcinoma of upper-outer quadrant of right breast in female, estrogen receptor negative Essential (primary) hypertension Gout History of right shoulder fracture Intervertebral disc disorder with radiculopathy of lumbosacral region Joint instability Lumbar stenosis with neurogenic claudication Mixed hyperlipidemia Osteoarthritis of lumbar spine Spondylolisthesis of lumbar region Surgical History History of lumpectomy of right breast History of right hip replacement 2012 Dr. Nu Hubbard [facility] Hx of appendectomy Hx of foot surgery bilateral Hx of left breast biopsy Hx of total thyroidectomy Hx of tubal ligation Family History Sister Cancer Breast Other Family history non-contributory Suicide Denies family history of Diabetes CAD (coronary artery disease) Clotting disorder Dementia Hyperlipidemia Psychiatric illness Chronic kidney disease (CKD) Anesthesia complication Bleeding disorder Lung disease Hypertension Stroke Social History Smoking and tobacco status: former smoker (smoked <10 years) Second hand smoke exposure: No Alcohol intake: never Caregiver/support person: Yes Lives independently: Yes Household members: spouse Marital status: Current occupational status: retired History of recent travel: No Current gender identity: Female Special temi needs: No Agree to transfusion: Yes Data Anesthesia : 06/15/22 08:45 BMP 06/15/22 08:45 Sodium 134 L Potassium 3.9 Chloride 97 L Carbon Dioxide 20 L BUN 30 H Creatinine 1.3 H Glucose 102 Calcium 8.4 L Cardiac Studies: No Data to Display
--- NOTE | 2022-06-15 16:53 | ANE.PACU2 ---
Inpatient post-anesthesia follow up: Airway intact: Yes Vital signs: Temperature 98.3 F Pulse Rate 70 Respiratory Rate 16 Blood Pressure 171/85 Pulse Oximetry 94 Oxygen Delivery Me thod Room Air Oxygen Flow Rate 10 Fraction of Inspir ed Oxygen Hydration adequate: Yes Nausea and vomiting: No Pain level: 3 Mental status: Baseline
== END 2022-06-15 15:55 | disposition home or self-care (01) ==
PROVIDERS: Anesthesiology; PCP Family Medicine; Visit Provider Surgery
PROC: (CPT 19120; principal; 2022-06-15 10:55)
PROC: (CPT 19301; 2022-06-15 10:55)
DX: C50.912 Malignant neoplasm of unspecified site of left female breast (principal); I10 Essential (primary) hypertension; K21.9 Gastro-esophageal reflux disease without esophagitis; E66.01 Morbid (severe) obesity due to excess calories; Z68.33 Body mass index [BMI] 33.0-33.9, adult; M19.90 Unspecified osteoarthritis, unspecified site; E78.2 Mixed hyperlipidemia; Z87.891 Personal history of nicotine dependence
CPT/HCPCS: 19301; 38500; 19285; 38792; 80048; 88307; 93005; A9541; C1889; J1100; J2405; J2704; J2710; J3010; J3370; J3490; J7030; Q9968

== ENCOUNTER → 2022-06-27 13:04 | Outpatient (BNVA) | payer MEDICARE, OTHER, SELFPAY | PROVIDERS: PCP Family Medicine; Visit Provider Surgery | DX: Z98.890 Other specified postprocedural states (principal); C50.912 Malignant neoplasm of unspecified site of left female breast | CPT/HCPCS: 99024 ==

== ENCOUNTER 2022-07-04 13:46 | Oncology outpatient (recurring) (ONCR) | payer MEDICARE, OTHER, SELFPAY ==
[2022-07-04 14:11] LABS: Basophils % 0.3 %; Eosinophils # 0.1 10^3/uL (0.0-0.8); Eosinophils % 0.7 %; Hematocrit 38.4 % (37.0-47.0); Hemoglobin 12.2 g/dL (11.5-15.3); Lymphocytes # 1.9 10^3/uL (0.8-4.8); Lymphocytes % 25.5 %; Mean Corpuscular HGB Conc 31.8 g/dL (30.0-36.0); Mean Corpuscular Hemoglobin 29.5 pg (28.0-34.0); Mean Platelet Volume 9.1 fL (7.4-10.4); Monocytes # 0.5 10^3/uL (0.2-0.9); Monocytes % 6.1 %; Neutrophils # 5.07 10^3/uL (1.8-7.7); Neutrophils % 66.9 %; Nucleated Red Blood Cells % 0 %; Platelet Count 272 10^3/cmm (130-400); Red Blood Count 4.13 10^6/uL (4.1-5.3); Red Cell Distribution Width 13.9 % (12.1-15.1); White Blood Count 7.6 10^3/uL (4.0-10.0)
[2022-07-04 14:36] LABS: Alanine Aminotransferase 9 U/L (0-33); Albumin Level 3.9 g/dL (3.5-5.2); Alkaline Phosphatase 90 U/L (35-105); Aspartate Amino Transferase 13 U/L (0-32); Blood Urea Nitrogen 25 mg/dL (8-23); Calcium 8.5 mg/dL (8.5-10.5); Carbon Dioxide 30 mmol/L (22-29); Glucose 115 mg/dL (65-115); Total Bilirubin 0.4 mg/dL (0.15-1.2); Total Protein 6.9 g/dL (6.6-8.7)
[2022-07-04 14:53] LABS: Anion Gap 14.3 (5-19); Chloride 91 mmol/L (98-107); Osmolality Calculated 279 mOsm/kg (285-295); Potassium 3.3 mmol/L (3.5-5.1); Sodium 132 mmol/L (136-145)
== END 2022-07-26 23:59 | disposition home or self-care (01) ==
PROVIDERS: PCP Family Medicine; Visit Provider Internal Medicine Hematology & Oncology
DX: C50.812 Malignant neoplasm of overlapping sites of left female breast (principal); C79.81 Secondary malignant neoplasm of breast; Z17.1 Estrogen receptor negative status [ER-]; M51.36 Other intervertebral disc degeneration, lumbar region; Z79.818 Long term (current) use of other agents affecting estrogen receptors and estrogen levels; Z79.899 Other long term (current) drug therapy; Z92.3 Personal history of irradiation; Z87.891 Personal history of nicotine dependence
CPT/HCPCS: 36415; 80053; 85025; 99214

== ENCOUNTER 2022-08-01 12:29 | Outpatient (CLI) | payer MEDICARE, OTHER, SELFPAY ==
--- NOTE | 2022-08-01 15:30 | XR_ITS ---
WS: [email or web address] SCREENING DEXA SCAN [employer] CLINICAL INFORMATION: BASELINE COMPARISON: None. FINDINGS: Left femoral neck bone mineral density measures 0.769. This corresponds to a T score score of -1.9 an d Z score of -0.5. LEFT forearm bone mineral density 0.792 with a T score of -1.0 and Z score of 1.7 IMPRESSION: Osteopenia LEFT femoral neck. Osteopenia LEFT forearm at the lower end of the range. Patient's FRAX calculated 10 year probability for major osteoporotic fracture is 31.6 % and osteoporo tic hip fracture is 11.8%.
== END 2022-08-01 12:30 | disposition home or self-care (01) ==
LOC: RAD 12:31
PROVIDERS: PCP Family Medicine; Visit Provider Internal Medicine Hematology & Oncology
DX: C50.411 Malignant neoplasm of upper-outer quadrant of right female breast (principal); Z17.1 Estrogen receptor negative status [ER-]; M85.80 Other specified disorders of bone density and structure, unspecified site
CPT/HCPCS: 77080

== ENCOUNTER 2022-08-01 12:29 | Outpatient (CLI) | payer MEDICARE, OTHER, SELFPAY ==
--- NOTE | 2022-08-01 12:36 | USCV_ITS ---
Kelley Quezada Age: 81 Gender: F : 1940 Exam Date: 08/01/2022 13:44 Ordering Phys: Willa Garner TILE SETTER SUPERVISOR TILE SETTER SUPERVISOR Technologist: Ghanshyam Kohli Exam Location: [facility] Indication: PAIN RIGHT LEFT Brachial 160.00 mmHg Brachial 164.00 mmHg Pressure (mmHg) Waveform Pressure (mmHg) Waveform 164.00 EQUAL OPPORTUNITY COUNSELOR 165.00 173.00 DPA 173.00 1.05 Ankle/Brachial Index 1.05 135.00 Pre-Exercise Toe Pressure 113.00 0.82 Pre-Exercise Toe/Brachial Index 0.69 FINDINGS Resting MARISOL 1.05 bilaterally. Resting MARISOL of 0.82 on the right and 0.69 on the left CONCLUSIONS 1. Normal resting ABIs bilaterally 2. Near normal resting TBIs bilaterally. No significant arterial obstruction, based on the above findings Dr Piyush Lau MD [facility] (Electronically Signed) Final Date: 04 August 2022 17:36 S
== END 2022-08-01 12:30 | disposition home or self-care (01) ==
LOC: RAD 12:31
PROVIDERS: PCP Family Medicine; Visit Provider Nurse Practitioner Family
DX: M79.671 Pain in right foot (principal); M79.672 Pain in left foot
CPT/HCPCS: 93922

== ENCOUNTER 2022-08-09 13:20 | Outpatient (CLI) | payer MEDICARE, OTHER, SELFPAY ==
[2022-08-09 14:22] LABS: Alanine Aminotransferase 13 U/L (0-33); Albumin Level 4.3 g/dL (3.5-5.2); Alkaline Phosphatase 96 U/L (35-105); Anion Gap 13.7 (5-19); Aspartate Amino Transferase 16 U/L (0-32); Blood Urea Nitrogen 33 mg/dL (8-23); Calcium 8.8 mg/dL (8.5-10.5); Carbon Dioxide 33 mmol/L (22-29); Chloride 96 mmol/L (98-107); Globulin 2.7 g/dL (1.3-4.6); Glucose 109 mg/dL (65-115); Osmolality Calculated 296 mOsm/kg (285-295); Potassium 3.7 mmol/L (3.5-5.1); Sodium 139 mmol/L (136-145); Total Bilirubin 0.4 mg/dL (0.15-1.2)
== END 2022-08-09 13:21 | disposition home or self-care (01) ==
LOC: LAB 13:25
PROVIDERS: PCP Family Medicine; Visit Provider Internal Medicine Hematology & Oncology
DX: C50.411 Malignant neoplasm of upper-outer quadrant of right female breast (principal); Z17.1 Estrogen receptor negative status [ER-]
CPT/HCPCS: 80053

== ENCOUNTER 2022-08-24 14:00 | Oncology outpatient (recurring) (ONCR) | payer MEDICARE, OTHER, SELFPAY ==
[2022-08-24] MEDS: denosumab 60 mg SDV SUBCUT (14:16)
== END 2022-08-26 23:59 | disposition home or self-care (01) ==
PROVIDERS: PCP Family Medicine; Visit Provider Internal Medicine Hematology & Oncology
DX: M81.0 Age-related osteoporosis without current pathological fracture (principal)
CPT/HCPCS: 80053; 96372; 99214; J0897

== ENCOUNTER → 2022-10-18 13:32 | Outpatient (BNVA) | payer MEDICARE, OTHER, SELFPAY | PROVIDERS: PCP Family Medicine; Visit Provider Internal Medicine | DX: I49.9 Cardiac arrhythmia, unspecified (principal); R00.2 Palpitations; E78.2 Mixed hyperlipidemia; I10 Essential (primary) hypertension; Z87.891 Personal history of nicotine dependence | CPT/HCPCS: 99214 ==

== ENCOUNTER → 2022-11-14 15:44 | Outpatient (BNVA) | payer MEDICARE, OTHER, SELFPAY | PROVIDERS: PCP Family Medicine; Visit Provider Nurse Practitioner Family | DX: M10.9 Gout, unspecified (principal); E55.9 Vitamin D deficiency, unspecified; N18.9 Chronic kidney disease, unspecified | CPT/HCPCS: 80053; 82306; 82607; 83735; 84550 ==

== ENCOUNTER 2022-11-23 12:15 | Oncology outpatient (recurring) (ONCR) | payer MEDICARE, OTHER, SELFPAY ==
[2022-11-23 13:03] LABS: Basophils % 0.4 %; Eosinophils # 0.1 10^3/uL (0.0-0.8); Eosinophils % 0.8 %; Hematocrit 42.9 % (37.0-47.0); Hemoglobin 13.2 g/dL (11.5-15.3); Lymphocytes # 1.8 10^3/uL (0.8-4.8); Mean Corpuscular HGB Conc 30.8 g/dL (30.0-36.0); Mean Corpuscular Hemoglobin 28.9 pg (28.0-34.0); Mean Corpuscular Volume 93.9 fl (81-99); Mean Platelet Volume 9.7 fL (7.4-10.4); Monocytes # 0.7 10^3/uL (0.2-0.9); Monocytes % 9.4 %; Neutrophils # 5.15 10^3/uL (1.8-7.7); Nucleated Red Blood Cells % 0 %; Platelet Count 252 10^3/cmm (130-400); Red Blood Count 4.57 10^6/uL (4.1-5.3); Red Cell Distribution Width 13.9 % (12.1-15.1); White Blood Count 7.8 10^3/uL (4.0-10.0)
[2022-11-23 13:30] LABS: Alanine Aminotransferase 9 U/L (0-33); Albumin Level 3.7 g/dL (3.5-5.2); Alkaline Phosphatase 86 U/L (35-105); Anion Gap 17.8 (5-19); Aspartate Amino Transferase 24 U/L (0-32); Blood Urea Nitrogen 30 mg/dL (8-23); Calcium 7.5 mg/dL (8.5-10.5); Carbon Dioxide 32 mmol/L (22-29); Chloride 95 mmol/L (98-107); Globulin 3.5 g/dL (1.3-4.6); Glucose 79 mg/dL (65-115); Osmolality Calculated 297 mOsm/kg (285-295); Potassium 3.8 mmol/L (3.5-5.1); Sodium 141 mmol/L (136-145); Total Bilirubin 0.4 mg/dL (0.15-1.2); Total Protein 7.2 g/dL (6.6-8.7)
== END 2022-11-24 23:59 | disposition home or self-care (01) ==
PROVIDERS: PCP Family Medicine; Visit Provider Internal Medicine Hematology & Oncology
DX: C50.812 Malignant neoplasm of overlapping sites of left female breast (principal); Z17.1 Estrogen receptor negative status [ER-]; C79.81 Secondary malignant neoplasm of breast; M51.36 Other intervertebral disc degeneration, lumbar region; M81.0 Age-related osteoporosis without current pathological fracture; M85.88 Other specified disorders of bone density and structure, other site; N28.89 Other specified disorders of kidney and ureter; Z79.818 Long term (current) use of other agents affecting estrogen receptors and estrogen levels; Z79.899 Other long term (current) drug therapy; Z92.3 Personal history of irradiation; Z87.891 Personal history of nicotine dependence
CPT/HCPCS: 80053; 85025; 99214

== ENCOUNTER → 2022-11-24 09:51 | Outpatient (BNVA) | payer MEDICARE, OTHER, SELFPAY | PROVIDERS: PCP Family Medicine; Visit Provider Podiatrist Foot & Ankle Surgery | DX: I73.9 Peripheral vascular disease, unspecified (principal); M20.22 Hallux rigidus, left foot | CPT/HCPCS: 99204 ==

== ENCOUNTER → 2022-12-11 14:00 | Outpatient (BNVA) | payer MEDICARE, OTHER, SELFPAY | PROVIDERS: PCP Family Medicine; Visit Provider Nurse Practitioner Family | DX: M10.9 Gout, unspecified (principal); C50.411 Malignant neoplasm of upper-outer quadrant of right female breast; Z17.1 Estrogen receptor negative status [ER-]; N18.9 Chronic kidney disease, unspecified | CPT/HCPCS: 80053 ==

== ENCOUNTER 2022-12-21 11:02 | Oncology outpatient (recurring) (ONCR) | payer MEDICARE, OTHER, SELFPAY ==
[2022-12-21 12:04] LABS: Alanine Aminotransferase 12 U/L (0-33); Albumin Level 3.8 g/dL (3.5-5.2); Alkaline Phosphatase 66 U/L (35-105); Anion Gap 12.1 (5-19); Aspartate Amino Transferase 16 U/L (0-32); Blood Urea Nitrogen 32 mg/dL (8-23); Calcium 8.2 mg/dL (8.5-10.5); Carbon Dioxide 31 mmol/L (22-29); Chloride 100 mmol/L (98-107); Globulin 2.8 g/dL (1.3-4.6); Glucose 92 mg/dL (65-115); Osmolality Calculated 295 mOsm/kg (285-295); Potassium 4.1 mmol/L (3.5-5.1); Sodium 139 mmol/L (136-145); Total Bilirubin 0.3 mg/dL (0.15-1.2); Total Protein 6.6 g/dL (6.6-8.7)
== END 2022-12-24 23:59 | disposition home or self-care (01) ==
PROVIDERS: PCP Family Medicine; Visit Provider Internal Medicine Hematology & Oncology
DX: C50.812 Malignant neoplasm of overlapping sites of left female breast (principal); Z17.1 Estrogen receptor negative status [ER-]; C79.81 Secondary malignant neoplasm of breast; M51.36 Other intervertebral disc degeneration, lumbar region; M81.0 Age-related osteoporosis without current pathological fracture; M85.89 Other specified disorders of bone density and structure, multiple sites; N28.89 Other specified disorders of kidney and ureter; Z79.818 Long term (current) use of other agents affecting estrogen receptors and estrogen levels; Z79.899 Other long term (current) drug therapy; Z92.3 Personal history of irradiation; Z87.891 Personal history of nicotine dependence; R00.0 Tachycardia, unspecified
CPT/HCPCS: 36415; 80053; 99213; 99214

== ENCOUNTER 2023-01-18 11:01 | Oncology outpatient (recurring) (ONCR) | payer MEDICARE, OTHER, SELFPAY | END 2023-01-24 23:59 | disposition home or self-care (01) | PROVIDERS: PCP Family Medicine; Visit Provider Internal Medicine Hematology & Oncology | DX: C50.812 Malignant neoplasm of overlapping sites of left female breast (principal); Z17.1 Estrogen receptor negative status [ER-]; C79.81 Secondary malignant neoplasm of breast; M51.36 Other intervertebral disc degeneration, lumbar region; M81.0 Age-related osteoporosis without current pathological fracture; M85.88 Other specified disorders of bone density and structure, other site; Z79.811 Long term (current) use of aromatase inhibitors; Z79.899 Other long term (current) drug therapy; Z92.3 Personal history of irradiation; Z87.891 Personal history of nicotine dependence | CPT/HCPCS: 99213 ==

== ENCOUNTER → 2023-01-23 11:56 | Outpatient (BNVA) | payer MEDICARE, OTHER, SELFPAY | PROVIDERS: PCP Family Medicine; Visit Provider Nurse Practitioner Family | DX: R00.2 Palpitations (principal); E78.2 Mixed hyperlipidemia | CPT/HCPCS: 80053; 80061; 82607; 83735; 84443; 85025 ==

== ENCOUNTER 2023-02-12 18:01 | Emergency (ER) | payer MEDICARE, OTHER, SELFPAY ==
--- NOTE | 2023-02-12 18:05 | XRR_ITS ---
PROCEDURE INFORMATION: Exam: XR Chest Exam date and time: 02/12/2023 6:21 PM Age: 82 years old Clinical indication: Other: Palpitations; Prior surgery; Surgery date: 6+ months; Surgery type: Breast; Additional info: Cp TECHNIQUE: Imaging protocol: Radiologic exam of the chest. Views: 1 view. COMPARISON: CR (CHEST, ) 01/15/2022 11:52 PM FINDINGS: Tubes, catheters and devices: A spinal stimulator is stable in position in the mid/lower thoracic spine. Lungs: Stable marked elevation of the right hemidiaphragm. Lungs are clear bilaterally. Stable calcified granuloma in the right lower lobe. Pleural spaces: No pleural effusion. No pneumothorax. Heart/Mediastinum: Stable mild enlargement of the cardiac silhouette. Mediastinal contours are unremarkable. Vasculature: Stable vascular calcifications in the aorta. Bones/joints: Stable deformity of the proximal right humerus consistent with an old fracture. Stable diffuse osteopenia of the visualized bones. XR/XR chest 1V portable [id number] IMPRESSION: 1. No acute cardiopulmonary process. 2. Incidental/nonacute findings are listed in the report.
--- NOTE | 2023-02-12 18:05 | ECG_ITS ---
[facility] Test Date: 2023-02-12 Pat Name: Kelley Quezada Department: Room: Gender: Female Ammonia Still Operator: : 1940 Requested By: Edwar Galeana Order Number: [id number] Yosef MD: Annita Salinas M.D. Measurements Intervals [place] Rate: 69 P: 52 NC: 351 QRS: 7 QRSD: 84 T: 24 QT: 402 QTc: 432 Interpretive Statements ELECTRONIC ATRIAL PACEMAKER ABNORMAL RHYTHM ECG Compared to ECG 06/15/2022 10:07:05 Intraventricular conduction delay no longer present Electronically Signed On 02-13-2023 16:28:04 CDT by Annita Salinas M.D. [id number]
--- NOTE | 2023-02-12 18:06 | ED_ITS ---
HPI - General Adult General: Chief complaint: Arrhythmia/Palpitations Stated complaint: palpatations resolved Time Seen by Provider: 02/12/23 18:01 Source: EMS Mode of arrival: EMS Limitations: no limitations History of Present Illness: 82-year-old female who states she has felt like she had fluttering in her heart over the last 3 days EMS states that she does have frequent PACs at times she states that it feels better now her heart rate here is been in the 70s. She denies any pain she denies any shortness of breath states she just can feel the fluttering feeling at times. 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 Nu Hubbard [facility] Hx of appendectomy Hx of foot surgery bilateral Hx of left breast biopsy Hx of total thyroidectomy Hx of tubal ligation Family History Sister Cancer Breast Other Family history non-contributory Suicide Denies family history of Diabetes CAD (coronary artery disease) Clotting disorder Dementia Hyperlipidemia Psychiatric illness Chronic kidney disease (CKD) Anesthesia complication Bleeding disorder Lung disease Hypertension Stroke Social History Smoking and tobacco status: former smoker Second hand smoke exposure: No Alcohol intake: never Substance/Drug Use: never Caregiver/support person: Yes Lives independently: Yes Household members: spouse Marital status: Current occupational status: retired Current gender identity: Female Special temi needs: No Agree to transfusion: Yes Physical Exam Const: COMMON NORMALS: no acute distress, patient oriented x3 and healthy appearing HENMT: COMMON NORMALS: normocephalic and atraumatic HEAD & SCALP: normocephalic and atraumatic Eye: COMMON NORMALS: conjunctivae normal CONJUNCTIVA: Yes conjunctivae normal Neck/C-Spine: COMMON NORMALS: full ROM and supple Chest: COMMONS NORMALS: normal inspection of the chest and normal palpation of entire chest wall Resp: COMMON NORMALS: normal respiratory effort, No retractions, No use of accessory muscles and clear to auscultation bilaterally AUSCULTATION: clear to auscultation bilaterally Cardio: COMMON NORMALS: regular rate, regular rhythm and No murmurs present (Cardio) RATE: regular rate RHYTHM: regular rhythm GI: COMMON NORMALS: Normal to inspection, nondistended, normoactive bowel s ounds present, Soft to palpation, non-tender and no masses PALPATION: Yes Soft to palpation Extremity: COMMON NORMALS: normal to inspection and full ROM Neuro: COMMON NORMALS: patient oriented x3, moves all extremities and no focal motor deficits Psych: COMMON NORMALS: mental status grossly normal, Normal thought process present and cooperative THOUGHT PROCESS: Normal thought process present Skin: COMMON NORMALS: no rashes or lesions noted and no wounds GENERAL SKIN EXAM: no rashes or lesions noted Course Vital Signs: Vital signs: Vital Signs Temperature 98.3 F 02/12/23 18:10 Pulse Rate 63 02/12/23 20:16 Respiratory Rate 16 02/12/23 20:16 Blood Pressure 137/81 02/12/23 20:16 Pulse Oximetry 98 02/12/23 20:16 Oxygen Delivery Me thod Room Air 02/12/23 18:10 [facility] - General Adult Medical Decision Making Patient presents here with palpitations at home her heart rate here has been in the 60s and 70s her troponins here are normal she is well-appearing here and in no distress she has had no chest pain here. She is stable for discharge she is to follow-up with her publicist she is return if worsening she understands agrees to plan. Medical Records I reviewed the patient's medical records. Lab Data I reviewed the patient's lab results. 02/12/23 18:09 02/12/23 18:09 Radiology Impressions Chest X-Ray 02/12/23 18:05 IMPRESSION: 1. No acute cardiopulmonary process. 2. Incidental/nonacute findings are listed in the report. Laboratory Results WBC 6.1 10^3/uL (4.0-10.0) 02/12/23 18:09 RBC 4.45 10^6/uL (4.1-5.3) 02/12/23 18:09 Hgb 12.6 g/dL (11.5-15.3) 02/12/23 18:09 Hct 40.4 % (37.0-47.0) 02/12/23 18:09 MCV 90.8 fl (81-99) 02/12/23 18:09 MCH 28.3 pg (28.0-34.0) 02/12/23 18:09 MCHC 31.2 g/dL (30.0-36.0) 02/12/23 18:09 RDW 14.6 % (12.1-15.1) 02/12/23 18:09 Plt Count 234 10^3/cmm (130-400) 02/12/23 18:09 MPV 9.3 fL (7.4-10.4) 02/12/23 18:09 Neut % (Auto) 69.7 % 02/12/23 18:09 Lymph % (Auto) 21.7 % 02/12/23 18:09 [place] % (Auto) 7.7 % 02/12/23 18:09 Eos % (Auto) 0.3 % 02/12/23 18:09 Baso % (Auto) 0.3 % 02/12/23 18:09 Neut # (Auto) 4.22 10^3/uL (1.8-7.7) 02/12/23 18:09 Lymph # (Auto) 1.3 10^3/uL (0.8-4.8) 02/12/23 18:09 [place] # (Auto) 0.5 10^3/uL (0.2-0.9) 02/12/23 18:09 Eos # (Auto) 0.0 10^3/uL (0.0-0.8) 02/12/23 18:09 Baso # (Auto) 0.0 10^3/uL (0.0-0.1) 02/12/23 18:09 Nucleated RBC % (auto) 0 % 02/12/23 18:09 Nucleated RBCs # 0.0 /100WBC 02/12/23 18:09 PT 12.60 SECONDS (12.1-14.9) 02/12/23 18:09 INR 0.91 (0.8-1.2) 02/12/23 18:09 Sodium 131 mmol/L (136-145) L 02/12/23 18:09 Potassium 3.7 mmol/L (3.5-5.1) 02/12/23 18:09 Chloride 95 mmol/L (98-107) L 02/12/23 18:09 Carbon Dioxide 22 mmol/L (22-29) 02/12/23 18:09 Anion Gap 17.7 (5-19) 02/12/23 18:09 BUN 22 mg/dL (8-23) 02/12/23 18:09 Creatinine 1.4 mg/dL (0.5-0.9) H 02/12/23 18:09 GFR Calculation Not Reportable 02/12/23 18:09 Glucose 88 mg/dL (65-115) 02/12/23 18:09 Calculated Osmolality 275 mOsm/kg (285-295) L 02/12/23 18:09 Calcium 8.3 mg/dL (8.5-10.5) L 02/12/23 18:09 Total Bilirubin 0.2 mg/dL (0.15-1.2) 02/12/23 18:09 AST 17 U/L (0-32) 02/12/23 18:09 ALT 10 U/L (0-33) 02/12/23 18:09 Alkaline Phosphatase 74 U/L (35-105) 02/12/23 18:09 Troponin T Baseline 32 ng/L (0-10) H 02/12/23 18:09 Troponin T 120 Minute 33.22 ng/L (0-10) H 02/12/23 20:35 Delta Troponin T 1.22 ABS# (0-10) 02/12/23 20:35 NT-Pro-B Natriuret Pep 1174 pg/mL (0-450) H 02/12/23 18:09 Total Protein 6.5 g/dL (6.6-8.7) L 02/12/23 18:09 Albumin 3.7 g/dL (3.5-5.2) 02/12/23 18:09 Globulin 2.8 g/dL (1.3-4.6) 02/12/23 18:09 EKG Data EKG 1: I personally reviewed and interpreted this EKG as follows: EKG interpretation date: 02/12/23 EKG interpretation time: 18:18 Interpretation: nsr hr [address] or t wave abnormalities qrs 84 qtc 421 Computer generated interpretation: Chest X-Ray 02/12/23 18:05 IMPRESSION: 1. No acute cardiopulmonary process. 2. Incidental/nonacute findings are listed in the report. Discharge Plan Discharge Patient Disposition: Home Clinical Impression: Palpitations, Hypertension Condition: Stable Prescriptions: New hydrochlorothiazide 25 mg tablet 25 mg PO DAILY Qty: 30 0RF No Action ascorbic acid (vitamin C) 1,000 mg tablet 1 gm PO DAILY diclofenac sodium [Voltaren Arthritis Pain] 1 % gel 2 g topical QID Qty: 100 0RF Hold Instructions: Resume on 06/18/22. Rx Instructions: apply to ankle febuxostat 40 mg tablet See Rx Instructions .ROUTE .COMPLEX Dose Instruction: TAKE ONE TABLET BY MOUTH DAILY. Rx Instructions: Uloric - TAKE ONE TABLET BY MOUTH DAILY. fluticasone propionate [Flonase Allergy Relief] 50 mcg/actuation spray,susp ension 2 spray intranasal DAILY Qty: 16 2RF Rx Instructions: administer into each nostril metoprolol tartrate 50 mg tablet 50 mg PO BID sulfamethoxazole-trimethoprim [Bactrim DS] 800-160 mg tablet 1 tab PO BID Qty: 20 0RF calcium carbonate [Calcium 600] 600 mg calcium (1,500 mg) tablet 600 mg PO DAILY anastrozole [Arimidex] 1 mg tablet 1 mg PO DAILY Qty: 30 0RF clonidine HCl 0.1 mg tablet See Rx Instructions .ROUTE .COMPLEX Qty: 60 3RF Dose Instruction: Take 1 tablet by mouth twice daily Rx Instructions: Take 1 tablet by mouth twice daily omeprazole 40 mg capsule,delayed release(DR/EC) See Rx Instructions .ROUTE .COMPLEX Qty: 90 0RF Dose Instruction: Take 1 capsule by mouth once daily Rx Instructions: Take 1 capsule by mouth once daily lovastatin 20 mg tablet See Rx Instructions .ROUTE .COMPLEX Qty: 180 0RF Dose Instruction: Take 2 tablets by mouth once daily Rx Instructions: Take 2 tablets by mouth once daily lisinopril 40 mg tablet See Rx Instructions .ROUTE .COMPLEX Qty: 180 1RF Dose Instruction: Take 2 tablets by mouth once daily Rx Instructions: Take 2 tablets by mouth once daily hydrochlorothiazide 25 mg tablet See Rx Instructions .ROUTE .COMPLEX Qty: 90 0RF Dose Instruction: TAKE 1 TABLET BY MOUTH ONCE DAILY IN THE MORNING Rx Instructions: TAKE 1 TABLET BY MOUTH ONCE DAILY IN THE MORNING levothyroxine 125 mcg tablet See Rx Instructions .ROUTE .COMPLEX Qty: 90 1RF Dose Instruction: Take 1 tablet by mouth once daily Rx Instructions: Take 1 tablet by mouth once daily cyanocobalamin (vitamin B-12) 1,000 mcg/mL solution 1,000 mcg IM .weekly 28 Days Qty: 4 1RF Rx Instructions: inject 1 ml 1 time weekly for 4 weeks then 1 time monthly Discharge Orders: Discharge ED (Routine); Ordered 02/12/23 Ordered By: Edwar Galeana Referrals: Mian Rose M.D [Physician] - 1-3 days Jo Ledezma MD [Primary Care Provider] - Discharge Diet: Advance as tolerated Discharge Activity: Resume usual activity Patient Instructions: Hypertension (ED) Coding Level of Care Code ED It Service Manager for Roland Arnett
[2023-02-12 18:10] VITALS: BP 190/95; PULSE 73; RESP 18; TEMP 36.8; O2SAT 95
[2023-02-12 18:15] LABS: Basophils % 0.3 %; Eosinophils % 0.3 %; Hematocrit 40.4 % (37.0-47.0); Hemoglobin 12.6 g/dL (11.5-15.3); Lymphocytes # 1.3 10^3/uL (0.8-4.8); Lymphocytes % 21.7 %; Mean Corpuscular HGB Conc 31.2 g/dL (30.0-36.0); Mean Corpuscular Hemoglobin 28.3 pg (28.0-34.0); Mean Corpuscular Volume 90.8 fl (81-99); Mean Platelet Volume 9.3 fL (7.4-10.4); Monocytes # 0.5 10^3/uL (0.2-0.9); Monocytes % 7.7 %; Neutrophils # 4.22 10^3/uL (1.8-7.7); Neutrophils % 69.7 %; Nucleated Red Blood Cells % 0 %; Platelet Count 234 10^3/cmm (130-400); Red Blood Count 4.45 10^6/uL (4.1-5.3); Red Cell Distribution Width 14.6 % (12.1-15.1); White Blood Count 6.1 10^3/uL (4.0-10.0)
[2023-02-12 18:35] LABS: INR 0.91 (0.8-1.2)
[2023-02-12] MEDS: hyDRALAzine 20 mg/mL INJ 1 mL 10 MG IVP (18:37)
[2023-02-12 18:39] VITALS: BP 190/100; PULSE 72; RESP 20; O2SAT 92
[2023-02-12 18:43] LABS: Troponin(5th) Baseline 32 ng/L (0-10)
[2023-02-12 18:45] LABS: Alanine Aminotransferase 10 U/L (0-33); Albumin Level 3.7 g/dL (3.5-5.2); Alkaline Phosphatase 74 U/L (35-105); Anion Gap 17.7 (5-19); Aspartate Amino Transferase 17 U/L (0-32); Blood Urea Nitrogen 22 mg/dL (8-23); Calcium 8.3 mg/dL (8.5-10.5); Carbon Dioxide 22 mmol/L (22-29); Chloride 95 mmol/L (98-107); Globulin 2.8 g/dL (1.3-4.6); Glucose 88 mg/dL (65-115); Osmolality Calculated 275 mOsm/kg (285-295); Potassium 3.7 mmol/L (3.5-5.1); Sodium 131 mmol/L (136-145); Total Bilirubin 0.2 mg/dL (0.15-1.2); Total Protein 6.5 g/dL (6.6-8.7)
[2023-02-12 19:39] VITALS: BP 166/80; PULSE 70; RESP 16; O2SAT 92
[2023-02-12 19:48] LABS: NT Pro B Type Natriuretic Pept 1174 pg/mL (0-450)
[2023-02-12 20:16] VITALS: BP 137/81; PULSE 63; RESP 16; O2SAT 98
[2023-02-12] MEDS: FUROsemide 10 mg/mL SDV 4mL 40 MG IVP (20:40)
[2023-02-12 20:57] LABS: Troponin 5 2HR 33.22 ng/L (0-10)
[2023-02-12 21:11] LABS: Troponin 5 2HR Delta 1.22 ABS# (0-10)
[2023-02-12 22:13] VITALS: BP 137/81; PULSE 75; RESP 16; TEMP 36.8; O2SAT 96
--- NOTE | 2023-02-13 08:10 | PC.SOCIAL ---
Addendum entered by Jessica Swan 03/02/23 11:34: Patient has a follow up appointment scheduled for February at 2:[address] Rose at [facility]. Original Note: Cardiology F/u Messaged cardiology for f/u appt with Dr. Rose for hypertension; clinic to contact patient with appt date and time.
== END 2023-02-12 22:15 | disposition home or self-care (01) ==
PROVIDERS: Emergency Provider Emergency Medicine; PCP Family Medicine
DX: R00.2 Palpitations (principal); I10 Essential (primary) hypertension; Z87.891 Personal history of nicotine dependence; Z85.3 Personal history of malignant neoplasm of breast; E78.2 Mixed hyperlipidemia
CPT/HCPCS: 71045; 80053; 83880; 84484; 85025; 85610; 93005; 96374; 96375; 99285; J0360; J1940

== ENCOUNTER → 2023-02-20 09:07 | Outpatient (BNVA) | payer MEDICARE, OTHER, SELFPAY | PROVIDERS: PCP Family Medicine; Visit Provider Orthopaedic Surgery | DX: M48.062 Spinal stenosis, lumbar region with neurogenic claudication (principal); M54.9 Dorsalgia, unspecified | CPT/HCPCS: 72110; 99214 ==

== ENCOUNTER 2023-02-22 11:15 | Oncology outpatient (recurring) (ONCR) | payer MEDICARE, OTHER, SELFPAY ==
[2023-02-22 11:24] VITALS: BP 153/51; PULSE 59; RESP 18; TEMP 36.4; O2SAT 97
[2023-02-22 11:57] LABS: Alanine Aminotransferase 11 U/L (0-33); Albumin Level 3.9 g/dL (3.5-5.2); Alkaline Phosphatase 69 U/L (35-105); Anion Gap 14.3 (5-19); Aspartate Amino Transferase 15 U/L (0-32); Blood Urea Nitrogen 35 mg/dL (8-23); Calcium 8.4 mg/dL (8.5-10.5); Carbon Dioxide 27 mmol/L (22-29); Chloride 97 mmol/L (98-107); Creatinine Clr Calc Pharmacy 30.1988; Globulin 2.5 g/dL (1.3-4.6); Glucose 95 mg/dL (65-115); Osmolality Calculated 284 mOsm/kg (285-295); Potassium 5.3 mmol/L (3.5-5.1); Sodium 133 mmol/L (136-145); Total Bilirubin 0.2 mg/dL (0.15-1.2); Total Protein 6.4 g/dL (6.6-8.7)
== END 2023-02-23 23:59 | disposition home or self-care (01) ==
LOC: ONCMED 11:17
PROVIDERS: Nurse Practitioner Family; PCP Family Medicine; Visit Provider Internal Medicine Hematology & Oncology
DX: C50.812 Malignant neoplasm of overlapping sites of left female breast (principal); Z17.1 Estrogen receptor negative status [ER-]; C79.81 Secondary malignant neoplasm of breast; M51.36 Other intervertebral disc degeneration, lumbar region; M81.0 Age-related osteoporosis without current pathological fracture; M85.88 Other specified disorders of bone density and structure, other site
CPT/HCPCS: 36415; 80053; 99214

== ENCOUNTER → 2023-02-22 11:16 | Outpatient (BNVA) | payer MEDICARE, OTHER, SELFPAY | PROVIDERS: PCP Family Medicine; Visit Provider Internal Medicine Hematology & Oncology | DX: C50.812 Malignant neoplasm of overlapping sites of left female breast (principal); Z17.1 Estrogen receptor negative status [ER-]; C79.81 Secondary malignant neoplasm of breast; Z79.818 Long term (current) use of other agents affecting estrogen receptors and estrogen levels; Z79.899 Other long term (current) drug therapy | CPT/HCPCS: 99214 ==

== ENCOUNTER → 2023-03-22 14:24 | Outpatient (BNVA) | payer MEDICARE, OTHER, SELFPAY | PROVIDERS: PCP Family Medicine; Visit Provider Internal Medicine | DX: I49.9 Cardiac arrhythmia, unspecified (principal); R00.2 Palpitations; E78.2 Mixed hyperlipidemia; I10 Essential (primary) hypertension | CPT/HCPCS: 99214 ==

== ENCOUNTER 2023-03-26 11:00 | Oncology outpatient (recurring) (ONCR) | payer MEDICARE, OTHER, SELFPAY ==
[2023-03-26 10:42] VITALS: BMI 36.0
[2023-03-26 10:43] VITALS: BP 115/69; PULSE 57; RESP 16; TEMP 36.9; O2SAT 97
[2023-03-26 11:00] LABS: Basophils % 0.4 %; Eosinophils # 0.1 10^3/uL (0.0-0.8); Eosinophils % 1.5 %; Hematocrit 39.2 % (37.0-47.0); Hemoglobin 11.9 g/dL (11.5-15.3); Lymphocytes # 0.9 10^3/uL (0.8-4.8); Lymphocytes % 13.2 %; Mean Corpuscular HGB Conc 30.4 g/dL (30.0-36.0); Mean Corpuscular Hemoglobin 29.5 pg (28.0-34.0); Mean Corpuscular Volume 97.3 fl (81-99); Mean Platelet Volume 9.5 fL (7.4-10.4); Monocytes # 0.5 10^3/uL (0.2-0.9); Neutrophils # 5.18 10^3/uL (1.8-7.7); Neutrophils % 76.6 %; Nucleated Red Blood Cells % 0 %; Platelet Count 218 10^3/cmm (130-400); Red Blood Count 4.03 10^6/uL (4.1-5.3); Red Cell Distribution Width 14.8 % (12.1-15.1); White Blood Count 6.8 10^3/uL (4.0-10.0)
[2023-03-26 11:18] LABS: Alanine Aminotransferase 9 U/L (0-33); Albumin Level 3.8 g/dL (3.5-5.2); Alkaline Phosphatase 79 U/L (35-105); Anion Gap 13.2 (5-19); Aspartate Amino Transferase 13 U/L (0-32); Blood Urea Nitrogen 23 mg/dL (8-23); Calcium 8.3 mg/dL (8.5-10.5); Carbon Dioxide 31 mmol/L (22-29); Chloride 100 mmol/L (98-107); Globulin 2.2 g/dL (1.3-4.6); Glucose 97 mg/dL (65-115); Osmolality Calculated 294 mOsm/kg (285-295); Potassium 4.2 mmol/L (3.5-5.1); Sodium 140 mmol/L (136-145); Total Bilirubin 0.3 mg/dL (0.15-1.2)
== END 2023-03-26 23:59 | disposition home or self-care (01) ==
PROVIDERS: Nurse Practitioner Family; PCP Family Medicine; Visit Provider Internal Medicine Hematology & Oncology
DX: C50.812 Malignant neoplasm of overlapping sites of left female breast (principal); Z17.0 Estrogen receptor positive status [ER+]; C50.811 Malignant neoplasm of overlapping sites of right female breast; Z17.1 Estrogen receptor negative status [ER-]; C77.3 Secondary and unspecified malignant neoplasm of axilla and upper limb lymph nodes; M51.36 Other intervertebral disc degeneration, lumbar region; M81.0 Age-related osteoporosis without current pathological fracture; M85.89 Other specified disorders of bone density and structure, multiple sites; Z79.811 Long term (current) use of aromatase inhibitors; Z79.899 Other long term (current) drug therapy; Z87.891 Personal history of nicotine dependence
CPT/HCPCS: 36415; 80053; 85025; 99214

== ENCOUNTER 2023-03-30 08:41 | Outpatient (CLI) | payer MEDICARE, OTHER, SELFPAY ==
--- NOTE | 2023-03-30 09:00 | CT_ITS ---
WS: [id number] CT LUMBAR MYELOGRAM TECHNIQUE: CT myelogram of the lumbar spine with coronal and sagittal reformatted images. CLINICAL INFORMATION: low back pain COMPARISON: CT March 10, 2020 and MRI February 24, 2020 DLP: 679.[address] scans at [facility] use at least one of these dose optimization techniques: automated e xposure control; mA and/or kV adjustment per patient size (includes targeted exams where dose is matc hed to clinical indication); or iterative reconstruction. FINDINGS: Mild lumbar curve. Advanced spondylitic changes lumbar spine. Slight anterolisthesis L5 on S1 measuri ng 5.4 mm. Lumbar curve convex LEFT. Partially visualized sclerotic lesion LEFT ilium adjacent to the SI joints is new since 2019. This is indeterminant and metastatic disease is not excluded. This can be further evaluated with nuclear medicine bone scan and MRI of the pelvis and sacrum without and wit h gadolinium enhancement. This measures approximately 3.2 x 1.3 cm only partially visualized. L1-L2: Disc desiccation with vacuum disc phenomenon. Mild facet arthropathy. Spinal canal and foramen are patent. L2-L3: Mild disc bulging with prominent RIGHT subarticular disc protrusion filling the RIGHT subartic ular recess. This impinges the traversing RIGHT L3 nerve root with mild RIGHT foraminal narrowing. LE FT foramen is patent. Mild facet arthropathy. L3-L4: Slight retrolisthesis. Mild annular bulging with narrowing of the subarticular recess bilatera lly. Mild facet arthropathy. Mild central canal stenosis. Mild to moderate RIGHT foraminal narrowing. LEFT foramen is patent. L4-L5: Mild disc bulging with moderate central canal stenosis. Narrowing of the subarticular recess b ilaterally. Moderate facet arthropathy with ligamentum flavum hypertrophy. Mild LEFT greater than RIG HT foraminal narrowing. L5-S1: Grade 1 anterolisthesis L5 on S1. Mild annular bulging. Moderate facet arthropathy. Spinal can al is patent. Partially visualized spinal stimulator. Foramen are patent. Visualized pelvic bony structures: Normal. Paravertebral soft tissues: Normal. CT/CT lumbar spine wo/w con [id number] IMPRESSION: 1. Partially visualized sclerotic lesion involving the LEFT ilium adjacent to the SI joint is new since 2019 is indeterminant but suspicious for metastatic d isease in a patient this age. Recommend further evaluation with nuclear medicin e bone scan to evaluate for additional lesions and MRI of the pelvis and sacrum without and with gadolinium for better anatomic detail. 2. Prominent RIGHT subarticular disc protrusion L2-L3 impinges the traversing RIGHT L3 nerve root in the subarticular recess. Mild RIGHT L2-L3 foraminal narr owing. 3. Mild central canal stenosis L3-L4 and moderate central canal stenosis L4-L5 with impingement subarticular recess bilaterally. Mild to moderate RIGHT L3-L4 and LEFT L4-L5 foraminal narrowing. 4. Moderate facet arthropathy worse at L4-L5 and L5-S1.
--- NOTE | 2023-03-30 09:00 | IR_ITS ---
WS: [id number] MYELOGRAM LUMBAR SPINE Fluoroscopic guided lumbar myelogram CLINICAL INFORMATION: low back pain TECHNIQUE: The procedure, including risks, benefits, and complications, were discussed with the patie nt who agreed to proceed. A timeout was performed to confirm correct patient, procedure, and site. Using sterile technique, the patient was prepped and draped in the usual sterile fashion. After admin istration of local anesthesia using 1% preservative-free lidocaine and using fluoroscopic guidance, a 22-gauge spinal needle was advanced into the subarachnoid space at the L2-L3 level. Subsequently 13 cc of Omnipaque 240 was administered into the thecal sac. The needle was removed and hemostasis was a chieved. Spot fluoroscopic images were obtained. FLUOROSCOPIC TIME: 3min [id number] # of spot films: 9 Spot fluoroscopic images demonstrate lumbar curve convex LEFT. Spinal stimulator wires visualized. Os teopenia. Advanced spondylitic changes lumbar spine. Grade 1 anterolisthesis L5 on S1. Disc space cynthia rowing vacuum disc phenomenon at L1-L2, L2-L3 and L3-L4 with slight retrolisthesis at these levels. IR/IR myelogram sp lumbar [id number] IMPRESSION: 1. Uncomplicated lumbar myelogram. 2. Please see CT myelogram report for anatomic detail.
--- NOTE | 2023-03-30 10:34 | XR_ITS ---
WS: [id number] Left leg including the tibia and fibula, AP and lateral views, 03/30/2023 Clinical Data: L03.116 - Cellulitis of left lower limb Comparison: None. Findings: No fractures or dislocations are seen. The tibia and fibula are intact. The soft tissues are normal. There is osteoarthritic change of the left knee. XR/XR tibia fibula LT 2V [id number] Impression: Negative left leg.
== END 2023-03-30 08:42 | disposition home or self-care (01) ==
PROVIDERS: PCP Family Medicine; Visit Provider Orthopaedic Surgery
DX: M51.26 Other intervertebral disc displacement, lumbar region (principal); L03.116 Cellulitis of left lower limb; M89.9 Disorder of bone, unspecified; M48.061 Spinal stenosis, lumbar region without neurogenic claudication; M47.817 Spondylosis without myelopathy or radiculopathy, lumbosacral region
CPT/HCPCS: 62304; 72133; 73590; Q9966

== ENCOUNTER → 2023-04-03 13:38 | Outpatient (BNVA) | payer MEDICARE, OTHER, SELFPAY | PROVIDERS: PCP Family Medicine; Visit Provider Orthopaedic Surgery | DX: M48.062 Spinal stenosis, lumbar region with neurogenic claudication (principal) | CPT/HCPCS: 99214 ==

== ENCOUNTER 2023-04-25 12:07 | Oncology outpatient (recurring) (ONCR) | payer MEDICARE, OTHER, SELFPAY ==
[2023-04-25 12:16] VITALS: BP 168/90; PULSE 93; RESP 16; TEMP 37.1; O2SAT 99
[2023-04-25 12:30] LABS: Basophils % 0.3 %; Eosinophils # 0.1 10^3/uL (0.0-0.8); Eosinophils % 0.7 %; Hematocrit 41.5 % (36-47); Lymphocytes # 1.7 10^3/uL (0.8-4.8); Lymphocytes % 21.8 %; Mean Corpuscular HGB Conc 31.1 g/dL (30-55); Mean Corpuscular Volume 93.3 fl (85-98); Mean Platelet Volume 9.3 fL (7.4-10.4); Monocytes # 0.6 10^3/uL (0.2-0.9); Monocytes % 7.8 %; Neutrophils # 5.26 10^3/uL (1.8-7.7); Neutrophils % 69.1 %; Nucleated Red Blood Cells % 0 %; Platelet Count 249 10^3/cmm (157-399); Red Blood Count 4.45 10^6/uL (3.85-5.65); Red Cell Distribution Width 13.8 % (12.1-15.1)
[2023-04-25 12:45] LABS: Alanine Aminotransferase 9 U/L (0-33); Albumin Level 4.2 g/dL (3.5-5.2); Alkaline Phosphatase 78 U/L (35-105); Anion Gap 12.2 (5-19); Aspartate Amino Transferase 10 U/L (0-32); Blood Urea Nitrogen 26 mg/dL (8-23); Calcium 8.5 mg/dL (8.5-10.5); Carbon Dioxide 32 mmol/L (22-29); Chloride 96 mmol/L (98-107); Creatinine Clr Calc Pharmacy 36.9026; Globulin 2.7 g/dL (1.3-4.6); Glucose 103 mg/dL (65-115); Osmolality Calculated 287 mOsm/kg (285-295); Potassium 4.2 mmol/L (3.5-5.1); Sodium 136 mmol/L (136-145); Total Bilirubin 0.3 mg/dL (0.15-1.2); Total Protein 6.9 g/dL (6.6-8.7)
== END 2023-04-26 23:59 | disposition home or self-care (01) ==
PROVIDERS: Nurse Practitioner Family; PCP Family Medicine; Visit Provider Internal Medicine Hematology & Oncology
DX: C50.812 Malignant neoplasm of overlapping sites of left female breast (principal); Z17.1 Estrogen receptor negative status [ER-]; C79.81 Secondary malignant neoplasm of breast; M51.36 Other intervertebral disc degeneration, lumbar region; M81.0 Age-related osteoporosis without current pathological fracture; M85.88 Other specified disorders of bone density and structure, other site; N28.89 Other specified disorders of kidney and ureter; Z79.818 Long term (current) use of other agents affecting estrogen receptors and estrogen levels; Z79.899 Other long term (current) drug therapy; Z92.3 Personal history of irradiation; Z87.891 Personal history of nicotine dependence; Z53.9 Procedure and treatment not carried out, unspecified reason
CPT/HCPCS: 36415; 80053; 85025; 99214

== ENCOUNTER 2023-05-02 11:07 | Outpatient (CLI) | payer MEDICARE, OTHER, SELFPAY ==
--- NOTE | 2023-05-02 11:17 | MM_ITS ---
WS: [id number] Bilateral diagnostic 3D tomosynthesis digital mammogram, 05/02/2023 Clinical Data: ANNUAL - HX BR CA Comparison: 04/18/2022, 01/03/2022, 12/27/2020, 07/31/2019, 04/02/2018, 03/25/2018. Findings: The right breast shows deformity with skin thickening and irregularity. There are large benign calcif ications in the right breast unchanged. There are vascular calcifications. The right breast shows no spiculated masses or clustered calcifications. The left breast shows clips in the upper outer quadrant from the surgery to remove a lesion in this r egion. No residual mass is seen. There are large benign calcifications in the medial left breast. The re are small vascular calcifications. Both breasts show fibroglandular tissue. Impression: 1. Post therapeutic changes of the right breast which are stable. 2. 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 MM/[place] [id number] BIRADS: 6-Known Biopsy-Proven Malignancy FOLLOW UP: 1 Year Follow-up The CAD thread checker was used.
--- NOTE | 2023-05-02 13:30 | CT_ITS ---
WS: [id number] CT pelvis TECHNIQUE: Noncontrast CT of the pelvis with coronal and sagittal reformatted images. CLINICAL INFORMATION: lesion as specified on CT Myelogram COMPARISON: CT myelogram 03/30/2023 DLP: 409.[address] scans at [facility] use at least one of these dose optimization techniques: automated e xposure control; mA and/or kV adjustment per patient size (includes targeted exams where dose is matc hed to clinical indication); or iterative reconstruction. FINDINGS: Again seen is the dense sclerotic lesion adjacent to the LEFT sacroiliac joint involving the LEFT daquan um. This measures approximately 3.8 cm suspicious for blastic metastatic disease. This is new since t he prior PET/CT in 2018. Recommend further evaluation with bone scan or PET/CT. RIGHT JUAN degrades images in the pelvis. Degenerative arthritis lower lumbar spine with facet arthrop athy. No other suspicious bony lesions. Sigmoid diverticulosis. Fat-containing umbilical hernia. IMPRESSION: 1. Again seen is the dense sclerotic lesion involving the LEFT ilium adjacent to the superior margin of the sacroiliac joint suspicious for metastatic disease considering history. No other suspicious l esions. Recommend further evaluation with bone scan or PET/CT. 2. No other visualized lesions. 3. Diverticulosis.
== END 2023-05-02 11:08 | disposition home or self-care (01) ==
PROVIDERS: PCP Family Medicine; Visit Provider Nurse Practitioner Family
DX: M48.062 Spinal stenosis, lumbar region with neurogenic claudication (principal); Z85.3 Personal history of malignant neoplasm of breast; M89.9 Disorder of bone, unspecified; K57.30 Diverticulosis of large intestine without perforation or abscess without bleeding
CPT/HCPCS: 72192; 77062; G0279

== ENCOUNTER 2023-05-07 09:07 | Outpatient (CLI) | payer MEDICARE, OTHER, SELFPAY ==
--- NOTE | 2023-05-07 09:14 | NM_ITS ---
WS: [email or web address] NUCLEAR MEDICINE BONE SCAN Radiopharmaceutical: 23.9 Tc-99m MDP mCi IV Injection site: Antecubital Postinjection imaging delay: 1 hr CLINICAL INFORMATION: lesion as specified on CT Myelogram COMPARISON: CT pelvis 05/02/2023 and myelogram 03/30/2023 FINDINGS: Bone lesions: Previously described sclerotic lesion adjacent to the LEFT sacroiliac joint in the LEFT ilium demonstrates no significant radiotracer uptake on today's bone scan. Focal radiotracer uptake in the midthoracic spine at approximately T9 suspicious for recent acute com pression fracture. This could be further evaluated with CT. Focal bone lesion activity within the LEFT lateral humerus in the proximal to mid humeral shaft is in determinate. Recommend further evaluation with radiographs and/or CT. Soft tissue contours: Normal. Kidneys: Normal. Other findings: Degenerative uptake in both knees and RIGHT greater than LEFT ankle. IMPRESSION: 1. Previously described sclerotic lesion adjacent to the LEFT sacroiliac joint in the LEFT ilium dem onstrates no significant radiotracer uptake on today's bone scan. This remains indeterminant and cons ider 3-month follow-up with pelvis CT 2. Focal uptake in the midthoracic spine approximately T9 suspicious for recent compression fracture . This be further evaluated with CT. Recommend correlation for mid back pain. 3. Focal radiotracer uptake within the LEFT proximal to mid humerus is indeterminate. Recommend furt her evaluation with radiographs and/or CT humerus. This is new since the prior bone scan 01/26/2020 and metastatic disease not excluded.
== END 2023-05-07 09:08 | disposition home or self-care (01) ==
LOC: RAD 09:09
PROVIDERS: PCP Family Medicine; Visit Provider Orthopaedic Surgery
DX: M48.062 Spinal stenosis, lumbar region with neurogenic claudication (principal); M89.9 Disorder of bone, unspecified
CPT/HCPCS: 78306; A9561

== ENCOUNTER → 2023-05-24 14:21 | Outpatient (BNVA) | payer MEDICARE, OTHER, SELFPAY | PROVIDERS: PCP Family Medicine; Visit Provider Orthopaedic Surgery | DX: M48.062 Spinal stenosis, lumbar region with neurogenic claudication; M89.9 Disorder of bone, unspecified; J86.9 Pyothorax without fistula | CPT/HCPCS: 36415; 72072; 72100; 73060; 80053; 81001; 85025; 87077; 87086; 87186; 99214 ==

== ENCOUNTER → 2023-05-30 15:35 | Outpatient (BNVA) | payer MEDICARE, OTHER, SELFPAY | PROVIDERS: PCP Family Medicine; Visit Provider Nurse Practitioner Family | DX: J18.9 Pneumonia, unspecified organism (principal) | CPT/HCPCS: 71046 ==

== ENCOUNTER 2023-06-04 16:20 | Inpatient (IN) | payer MEDICARE, OTHER, SELFPAY ==
[2023-06-04] VITALS (7 sets, daily range): BP systolic 97–131; BP diastolic 76–98; PULSE 101–111; RESP 15–18; TEMP 36.6–36.7; O2SAT 92–95; BMI 33.3
--- NOTE | 2023-06-04 16:22 | XRR_ITS ---
PROCEDURE INFORMATION: Exam: XR Chest Exam date and time: 06/04/2023 4:52 PM Age: 82 years old Clinical indication: Shortness of breath; Prior surgery; Surgery date: 6+ months; Surgery type: Ayan breast nerve stimulator; Additional info: Dyspnea/cough TECHNIQUE: Imaging protocol: Radiologic exam of the chest. Views: 1 view. COMPARISON: CR XR chest 2V* [id number] 05/30/2023 3:41 PM FINDINGS: Tubes, catheters and devices: Neurostimulator lead tips terminate at about the T6 and T8 levels. Lungs: Stable small nodule in the right lung. New line no consolidation. Pleural spaces: Unremarkable. No pleural effusion. No pneumothorax. Heart/Mediastinum: Unremarkable. No cardiomegaly. Diaphragm: There is marked elevation of the right hemidiaphragm. Bones/joints: Unremarkable. Soft tissues: There are left axillary clips. XR/XR chest 1V portable [id number] IMPRESSION: Stable nonacute findings.
--- NOTE | 2023-06-04 16:23 | ECG_ITS ---
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 [email or web address]
--- NOTE | 2023-06-04 16:34 | ED_ITS ---
Documented by User: Raffi Koehler DO 06/05/23 05:59 HPI - SOB/Dyspnea General: Chief Complaint: Shortness of Breath/Dyspnea Stated Complaint: sob Time Seen by Provider: 06/04/23 16:21 Source: patient Mode of arrival: EMS History of Present Illness: HPI Narrative: 82-year-old female presents emergency room via EMS with complaint of shortness of breath and productive cough. She had a sinus infection about a week ago was treated for that but despite this continues to have increasing symptoms with increasing shortness of breath and productive cough a few days ago she was seen at one of the local clinics and told that she had pneumonia and she was started on albuterol and Levaquin. Despite this she has become progressively worse increasing cough increasing shortness of breath she called for an ambulance today was found to be hypoxic and started on 2 L by nasal cannula. She is mildly tachycardic and satting in the mid 90s at 2 L by nasal cannula at this time. No history of heart disease or chronic respiratory disease MD elicited complaint: shortness of breath and cough Onset (ago): day(s) (3) Timing: constant Exacerbating factors: exertion and coughing Relieving factors: oxygen and rest Associated symptoms: Reports chest congestion and cough; Deny abdominal pain, chest pain, diaphoresis, dizziness, extremity pain, fever(s), hemoptysis, lightheadedness, myalgias, nausea, orthopnea, palpitations, paresthesias, polydipsia, polyuria, rash, sense of impending doom, syncope, vomiting or other Treatment prior to arrival: oxygen Related Data: Home oxygen amount: none Review of Systems Const: Reports: chills, fatigue and malaise; Denies: fever(s) or diaphoresis Card: Denies: chest pain, palpitations, lightheadedness, syncope or orthopnea Resp: Reports: dyspnea, productive cough and chest congestion; Denies: hemoptysis GI: Denies: abdominal pain, nausea or vomiting : Denies: dysuria, urinary frequency or urinary urgency Musc: Denies: extremity pain Skin/Breast: Denies: rash Neuro: Denies: dizziness Endo: Denies: polyuria or polydipsia PFS ED PFSH: Medical History Aortic valve sclerosis Breast cancer, left Breast cancer, left 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 Nu Hubbard [facility] Hx of appendectomy Hx of foot surgery bilateral Hx of left breast biopsy Hx of total thyroidectomy Hx of tubal ligation Family History Sister Cancer Breast Other Family history non-contributory Suicide Denies family history of Diabetes CAD (coronary artery disease) Clotting disorder Dementia Hyperlipidemia Psychiatric illness Chronic kidney disease (CKD) Anesthesia complication Bleeding disorder Lung disease Hypertension Stroke Social History Smoking and tobacco status: former smoker Quit status (tobacco): has quit using tobacco Year quit tobacco: in 20's Former quit date comment: Not sure of quit date Second hand smoke exposure: No Alcohol intake: never Substance/Drug Use: never Caregiver/support person: Yes Lives independently: Yes Household members: spouse Marital status: Current occupational status: retired Current gender identity: Female Special temi needs: No Agree to transfusion: Yes Physical Exam Const: GENERAL APPEARANCE: cooperative and comfortable ORIEN TATION/CONSCIOUSNESS: Yes awake, Yes oriented to person, Yes oriented to place and Yes oriented to time HENMT: COMMON NORMALS: normocephalic, atraumatic and hearing grossly normal bilaterally HEAD & SCALP: normocephalic and atraumatic Resp: COMMON NORMALS: normal respiratory effort, No retractions and No use of accessory muscles AUSCULTATION: rhonchi and wheezes Cardio: COMMON NORMALS: regular rate, regular rhythm and No murmurs present (Cardio) RATE: regular rate RHYTHM: regular rhythm GI: COMMON NORMALS: Soft to palpation and No hepatosplenomegaly present AUSCULTATION: Yes normoactive bowel sounds PALPATION: Yes Soft to palpation, No Tenderness to palpation present (GI), No Guarding due to palpation present (GI) and Yes No hepatosplenomegaly present Extremity: COMMON NORMALS: normal to inspection, capillary refill normal, no clubbing, cyanosis or edema, no calf tenderness and no pedal edema Neuro: SENSORIUM/ORIENTATION: Yes oriented to person, Yes oriented to place and Yes oriented to time Skin: COMMON NORMALS: no rashes or lesions noted GENERAL SKIN EXAM: no rashes or lesions noted Course Vital Signs: Vital signs: Vital Signs Temperature 97.9 F 06/05/23 03:03 Pulse Rate 98 06/05/23 03:03 Respiratory Rate 16 06/05/23 03:03 Blood Pressure 111/74 06/05/23 03:03 Pulse Oximetry 92 06/05/23 03:03 Oxygen Delivery Me thod Room Air 06/05/23 03:03 Oxygen Flow Rate 2 06/04/23 20:36 MDM - SOB/Dyspnea Medical Decision Making Care signed out to Dr. Gould at change of shift. See final notes for diagnosis and disposition. Patient presents to the ER with complaints of feeling bad worsening shortness of breath and hypoxia. Patient was a started on antibiotics 2 weeks ago for sinus infection at the failure clinic took those for 1 week. Patient then went back to diagnosed with pneumonia was put on Levaquin and has not improved. Patient normally does not have to wear oxygen and patient is now requiring oxygen to keep her sats up lab work was obtained as well as x-ray and CTA lab work showed patient is a 17,000 white count x-ray was nonacute findings, CTA showed patchy bilateral groundglass opacities may represent edema and/or pneumonic infiltrate. Patient still requiring 2 L of oxygen to keep her sat up in the mid 90s. Patient will be admitted to the hospitalist for treatment resistant pneumonia. Dr. Ling was consulted who agreed for admission for further evaluation and treatment. Lab Data 06/05/23 04:38 06/04/23 16:43 Labs/Radiology: Radiology Impressions Chest X-Ray 06/04/23 16:22 IMPRESSION: Stable nonacute findings. Chest CTA 06/04/23 17:22 IMPRESSION: 1. Negative for pulmonary embolus. 2. Patchy bilateral ground-glass and airspace opacifications may reflect a combination of alveolar edema and/or pneumonic infiltrates. 3. Coronary artery atherosclerotic calcifications. 4. Mild cardiomegaly. 5. Hepatic steatosis. 6. Reflux of contrast in the intrahepatic veins may reflect a degree of congestive heart failure. 7. Cholelithiasis. 8. Right kidney cyst, negative for follow-up advised. 9. T9 vertebral body sclerotic bony lesion, may reflect metastatic disease, please correlate clinically of bone cement is been administered. 10. T6 vertebral body compression fracture without retropulsion of bony fragments. 11. Spinal stimulator. Laboratory Results WBC 17.84 10^3/uL (3.29-11.43) H 06/04/23 16:43 RBC 5.01 10^6/uL (3.85-5.65) 06/04/23 16:43 Hgb 14.60 g/dL (11.27-16.99) 06/04/23 16:43 Hct 46.3 % (36-47) 06/04/23 16:43 MCV 92.4 fl (85-98) 06/04/23 16:43 MCH 29.1 pg (27-33) 06/04/23 16:43 MCHC 31.5 g/dL (30-55) 06/04/23 16:43 RDW 13.2 % (12.1-15.1) 06/04/23 16:43 Plt Count 295 10^3/cmm (157-399) 06/04/23 16:43 MPV 9.3 fL (7.4-10.4) 06/04/23 16:43 Neut % (Auto) 81.1 % 06/04/23 16:43 Lymph % (Auto) 11.8 % 06/04/23 16:43 Sac % (Auto) 6.0 % 06/04/23 16:43 Eos % (Auto) 0.2 % 06/04/23 16:43 Baso % (Auto) 0.2 % 06/04/23 16:43 Neut # (Auto) 14.46 10^3/uL (1.8-7.7) H 06/04/23 16:43 Lymph # (Auto) 2.1 10^3/uL (0.8-4.8) 06/04/23 16:43 Sac # (Auto) 1.1 10^3/uL (0.2-0.9) H 06/04/23 16:43 Eos # (Auto) 0.0 10^3/uL (0.0-0.8) 06/04/23 16:43 Baso # (Auto) 0.0 10^3/uL (0.0-0.1) 06/04/23 16:43 Nucleated RBC % (auto) 0 % 06/04/23 16:43 Nucleated RBCs # 0.0 /100WBC 06/04/23 16:43 Sodium 129 mmol/L (136-145) L 06/04/23 16:43 Potassium 4.5 mmol/L (3.5-5.1) 06/04/23 16:43 Chloride 89 mmol/L (98-107) L 06/04/23 16:43 Carbon Dioxide 31 mmol/L (22-29) H 06/04/23 16:43 Anion Gap 13.5 (5-19) 06/04/23 16:43 BUN 43 mg/dL (8-23) H 06/04/23 16:43 Creatinine 1.5 mg/dL (0.5-0.9) H 06/04/23 16:43 GFR Calculation Not Reportable 06/04/23 16:43 Glucose 90 mg/dL (65-115) 06/04/23 16:43 Calculated Osmolality 278 mOsm/kg (285-295) L 06/04/23 16:43 Calcium 8.5 mg/dL (8.5-10.5) 06/04/23 16:43 Total Bilirubin 0.5 mg/dL (0.15-1.2) 06/04/23 16:43 AST 12 U/L (0-32) 06/04/23 16:43 ALT 13 U/L (0-33) 06/04/23 16:43 Alkaline Phosphatase 65 U/L (35-105) 06/04/23 16:43 Troponin T Baseline 35 ng/L (0-10) H 06/04/23 16:43 Troponin T 120 Minute 30.89 ng/L (0-10) H 06/04/23 19:15 Delta Troponin T -4.11 ABS# (0-10) L 06/04/23 19:15 Total Protein 6.4 g/dL (6.6-8.7) L 06/04/23 16:43 Albumin 4.0 g/dL (3.5-5.2) 06/04/23 16:43 Globulin 2.4 g/dL (1.3-4.6) 06/04/23 16:43 Coronavirus 229E (PCR) Not detected (NOT DETECT) 06/04/23 18:50 SARS-CoV-2 (PCR) Not detected (NOT DETECT) 06/04/23 18:50 Discharge Plan Discharge Patient Disposition: Admitted As Inpatient Admit Provider: Vandana Ling Clinical Impression: Acute hypoxic respiratory failure Pneumonia Qualifiers: Pneumonia type: due to unspecified organism Laterality: bilateral Lung location: unspecified part of lung Qualified Code(s): J18.9 - Pneumonia, unspecified organism Condition: Stable Coding Level of Care Code ED Flight Attendant/Inflight Manager for Chg Fwd Documented by User: Alejandro Gould DO 06/05/23 02:05 HPI - SOB/Dyspnea General: Chief Complaint: Shortness of Breath/Dyspnea Stated Complaint: sob Time Seen by Provider: 06/04/23 16:21 PFSH ED PFSH: Medical History Aortic valve sclerosis Breast cancer, left Breast cancer, left 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 Nu Hubbard [facility] Hx of appendectomy Hx of foot surgery bilateral Hx of left breast biopsy Hx of total thyroidectomy Hx of tubal ligation Family History Sister Cancer Breast Other Family history non-contributory Suicide Denies family history of Diabetes CAD (coronary artery disease) Clotting disorder Dementia Hyperlipidemia Psychiatric illness Chronic kidney disease (CKD) Anesthesia complication Bleeding disorder Lung disease Hypertension Stroke Social History Smoking and tobacco status: former smoker Quit status (tobacco): has quit using tobacco Year quit tobacco: in 20's Former quit date comment: Not sure of quit date Second hand smoke exposure: No Alcohol intake: never Substance/Drug Use: never Caregiver/support person: Yes Lives independently: Yes Household members: spouse Marital status: Current occupational status: retired Current gender identity: Female Special temi needs: No Agree to transfusion: Yes Course Vital Signs: Vital signs: Vital Signs Temperature 97.9 F 06/05/23 03:03 Pulse Rate 98 06/05/23 03:03 Respiratory Rate 16 06/05/23 03:03 Blood Pressure 111/74 06/05/23 03:03 Pulse Oximetry 92 06/05/23 03:03 Oxygen Delivery Me thod Room Air 06/05/23 03:03 Oxygen Flow Rate 2 06/04/23 20:36 MDM - SOB/Dyspnea Medical Decision Making Patient presents to the ER with complaints of feeling bad worsening shortness of breath and hypoxia. Patient was a started on antibiotics 2 weeks ago for sinus infection at the failure clinic took those for 1 week. Patient then went back to diagnosed with pneumonia was put on Levaquin and has not improved. Patient normally does not have to wear oxygen and patient is now requiring oxygen to keep her sats up lab work was obtained as well as x-ray and CTA lab work showed patient is a 17,000 white count x-ray was nonacute findings, CTA showed patchy bilateral groundglass opacities may represent edema and/or pneumonic infiltrate. Patient still requiring 2 L of oxygen to keep her sat up in the mid 90s. Crow mathur will be admitted to the hospitalist for treatment resistant pneumonia. Dr. Ling was consulted who agreed for admission for further evaluation and treatment. Medical Records I reviewed the patient's medical records. Lab Data I reviewed the patient's lab results. 06/05/23 04:38 06/04/23 16:43 Labs/Radiology: Radiology Impressions Chest X-Ray 06/04/23 16:22 IMPRESSION: Stable nonacute findings. Chest CTA 06/04/23 17:22 IMPRESSION: 1. Negative for pulmonary embolus. 2. Patchy bilateral ground-glass and airspace opacifications may reflect a combination of alveolar edema and/or pneumonic infiltrates. 3. Coronary artery atherosclerotic calcifications. 4. Mild cardiomegaly. 5. Hepatic steatosis. 6. Reflux of contrast in the intrahepatic veins may reflect a degree of congestive heart failure. 7. Cholelithiasis. 8. Right kidney cyst, negative for follow-up advised. 9. T9 vertebral body sclerotic bony lesion, may reflect metastatic disease, please correlate clinically of bone cement is been administered. 10. T6 vertebral body compression fracture without retropulsion of bony fragments. 11. Spinal stimulator. Laboratory Results WBC 17.84 10^3/uL (3.29-11.43) H 06/04/23 16:43 RBC 5.01 10^6/uL (3.85-5.65) 06/04/23 16:43 Hgb 14.60 g/dL (11.27-16.99) 06/04/23 16:43 Hct 46.3 % (36-47) 06/04/23 16:43 MCV 92.4 fl (85-98) 06/04/23 16:43 MCH 29.1 pg (27-33) 06/04/23 16:43 MCHC 31.5 g/dL (30-55) 06/04/23 16:43 RDW 13.2 % (12.1-15.1) 06/04/23 16:43 Plt Count 295 10^3/cmm (157-399) 06/04/23 16:43 MPV 9.3 fL (7.4-10.4) 06/04/23 16:43 Neut % (Auto) 81.1 % 06/04/23 16:43 Lymph % (Auto) 11.8 % 06/04/23 16:43 Sac % (Auto) 6.0 % 06/04/23 16:43 Eos % (Auto) 0.2 % 06/04/23 16:43 Baso % (Auto) 0.2 % 06/04/23 16:43 Neut # (Auto) 14.46 10^3/uL (1.8-7.7) H 06/04/23 16:43 Lymph # (Auto) 2.1 10^3/uL (0.8-4.8) 06/04/23 16:43 Sac # (Auto) 1.1 10^3/uL (0.2-0.9) H 06/04/23 16:43 Eos # (Auto) 0.0 10^3/uL (0.0-0.8) 06/04/23 16:43 Baso # (Auto) 0.0 10^3/uL (0.0-0.1) 06/04/23 16:43 Nucleated RBC % (auto) 0 % 06/04/23 16:43 Nucleated RBCs # 0.0 /100WBC 06/04/23 16:43 Sodium 129 mmol/L (136-145) L 06/04/23 16:43 Potassium 4.5 mmol/L (3.5-5.1) 06/04/23 16:43 Chloride 89 mmol/L (98-107) L 06/04/23 16:43 Carbon Dioxide 31 mmol/L (22-29) H 06/04/23 16:43 Anion Gap 13.5 (5-19) 06/04/23 16:43 BUN 43 mg/dL (8-23) H 06/04/23 16:43 Creatinine 1.5 mg/dL (0.5-0.9) H 06/04/23 16:43 GFR Calculation Not Reportable 06/04/23 16:43 Glucose 90 mg/dL (65-115) 06/04/23 16:43 Calculated Osmolality 278 mOsm/kg (285-295) L 06/04/23 16:43 Calcium 8.5 mg/dL (8.5-10.5) 06/04/23 16:43 Total Bilirubin 0.5 mg/dL (0.15-1.2) 06/04/23 16:43 AST 12 U/L (0-32) 06/04/23 16:43 ALT 13 U/L (0-33) 06/04/23 16:43 Alkaline Phosphatase 65 U/L (35-105) 06/04/23 16:43 Troponin T Baseline 35 ng/L (0-10) H 06/04/23 16:43 Troponin T 120 Minute 30.89 ng/L (0-10) H 06/04/23 19:15 Delta Troponin T -4.11 ABS# (0-10) L 06/04/23 19:15 Total Protein 6.4 g/dL (6.6-8.7) L 06/04/23 16:43 Albumin 4.0 g/dL (3.5-5.2) 06/04/23 16:43 Globulin 2.4 g/dL (1.3-4.6) 06/04/23 16:43 Coronavirus 229E (PCR) Not detected (NOT DETECT) 06/04/23 18:50 SARS-CoV-2 (PCR) Not detected (NOT DETECT) 06/04/23 18:50 All radiology interpretation(s) finalized by discharge EKG Data EKG 1: I personally reviewed and interpreted this EKG as follows: EKG Interpretation Date: 06/04/23 EKG interpretation time: 18:22 Prior EKG tracings: not available for review Interpretation: EKG showed ventricular rate 109 bpm, MD interval 180, QRS duration 82, QTc 384, electronic atrial pacemaker, moderate ST depression Discharge Plan Discharge Patient Disposition: Admitted As Inpatient Admit Provider: Vandana Ling Clinical Impression: Acute hypoxic respiratory failure Pneumonia Qualifiers: Pneumonia type: due to unspecified organism Laterality: bilateral Lung location: unspecified part of lung Qualified Code(s): J18.9 - Pneumonia, unspecified organism Condition: Stable Coding Level of Care Code ED Flight Attendant/Inflight Manager for Roland Arnett
[2023-06-04 17:04] LABS: Basophils % 0.2 %; Eosinophils % 0.2 %; Hematocrit 46.3 % (36-47); Lymphocytes # 2.1 10^3/uL (0.8-4.8); Lymphocytes % 11.8 %; Mean Corpuscular HGB Conc 31.5 g/dL (30-55); Mean Corpuscular Hemoglobin 29.1 pg (27-33); Mean Corpuscular Volume 92.4 fl (85-98); Mean Platelet Volume 9.3 fL (7.4-10.4); Monocytes # 1.1 10^3/uL (0.2-0.9); Neutrophils # 14.46 10^3/uL (1.8-7.7); Neutrophils % 81.1 %; Nucleated Red Blood Cells % 0 %; Platelet Count 295 10^3/cmm (157-399); Red Blood Count 5.01 10^6/uL (3.85-5.65); Red Cell Distribution Width 13.2 % (12.1-15.1); White Blood Count 17.84 10^3/uL (3.29-11.43)
[2023-06-04 17:16] LABS: Troponin(5th) Baseline 35 ng/L (0-10)
--- NOTE | 2023-06-04 17:22 | CTR_ITS ---
PROCEDURE INFORMATION: Exam: CTA Chest With Contrast Exam date and time: 06/04/2023 6:56 PM Age: 82 years old Clinical indication: Shortness of breath; Additional info: Hypoxia w tachycardia TECHNIQUE: Imaging protocol: Computed tomographic angiography of the chest with contrast. Exam focused on the arteries. 3D rendering (Not supervised by radiologist): MIP and/or 3D reconstructed images were created by the technologist. Radiation optimization: All CT scans at this facility use at least one of these dose optimization techniques: automated exposure control; mA and/or kV adjustment per patient size (includes targeted exams where dose is matched to clinical indication); or iterative reconstruction. Contrast material: OMNI 350; Contrast volume: 95 ml; Contrast route: INTRAVENOUS (IV); REPORTING DATA: Count of CT and Cardiac NM exams in prior 12 months: This patient has received 3 known CTs and 0 known cardiac nuclear medicine studies in the 12 months prior to the current study. COMPARISON: CR (CHEST, ) 06/04/2023 4:52 PM RADIATION DOSE METRICS: Total DLP (mGy-cm): 402.32 FINDINGS: Tubes, catheters and devices: Spinal stimulator. Pulmonary arteries: Normal. No pulmonary emboli. Aorta: Unremarkable. No aortic aneurysm. No aortic dissection. Lungs: Patchy bilateral ground-glass and airspace opacifications may reflect a combination of alveolar edema and/or pneumonic infiltrates. Pleural spaces: Unremarkable. No pneumothorax. No pleural effusion. Heart: Mild cardiomegaly. Coronary arteries: Coronary artery atherosclerotic calcifications. Lymph nodes: Unremarkable. No enlarged lymph nodes. Liver: Hepatic steatosis. Gallbladder and bile ducts: Cholelithiasis. Kidneys and ureters: Right kidney cyst, negative for follow-up advised. Stomach and bowel: Reflux of contrast in the intrahepatic veins may reflect a degree of congestive heart failure. Bones/joints: T9 vertebral body sclerotic bony lesion, may reflect metastatic disease, please correlate clinically of bone cement is been administered. T6 vertebral body compression fracture without retropulsion of bony fragments. Soft tissues: Unremarkable. CT/CT angio chest PE protcl [id number] IMPRESSION: 1. Negative for pulmonary embolus. 2. Patchy bilateral ground-glass and airspace opacifications may reflect a combination of alveolar edema and/or pneumonic infiltrates. 3. Coronary artery atherosclerotic calcifications. 4. Mild cardiomegaly. 5. Hepatic steatosis. 6. Reflux of contrast in the intrahepatic veins may reflect a degree of congestive heart failure. 7. Cholelithiasis. 8. Right kidney cyst, negative for follow-up advised. 9. T9 vertebral body sclerotic bony lesion, may reflect metastatic disease, please correlate clinically of bone cement is been administered. 10. T6 vertebral body compression fracture without retropulsion of bony fragments. 11. Spinal stimulator.
[2023-06-04 17:23] LABS: Alanine Aminotransferase 13 U/L (0-33); Alkaline Phosphatase 65 U/L (35-105); Anion Gap 13.5 (5-19); Aspartate Amino Transferase 12 U/L (0-32); Blood Urea Nitrogen 43 mg/dL (8-23); Calcium 8.5 mg/dL (8.5-10.5); Carbon Dioxide 31 mmol/L (22-29); Chloride 89 mmol/L (98-107); Globulin 2.4 g/dL (1.3-4.6); Glucose 90 mg/dL (65-115); Osmolality Calculated 278 mOsm/kg (285-295); Potassium 4.5 mmol/L (3.5-5.1); Sodium 129 mmol/L (136-145); Total Bilirubin 0.5 mg/dL (0.15-1.2); Total Protein 6.4 g/dL (6.6-8.7)
[2023-06-04] MEDS: sodium chloride 0.9% 500 ML 999 ML IV (17:45)
--- NOTE | 2023-06-04 18:22 | ECG_ITS ---
[facility] Test Date: 2023-06-04 Pat Name: Kelley Quezada Department: Room: Gender: Female Lunch Counter Manager: : 1940 Requested By: Raffi Naidu Order Number: [id number] Yosef MD: Mian Rose M.D. Measurements Intervals [place] Rate: 109 P: 224 ND: 180 QRS: 63 QRSD: 82 T: 9 QT: 320 QTc: 431 Interpretive Statements ELECTRONIC ATRIAL PACEMAKER MODERATE ST DEPRESSION [0.05+ mV ST DEPRESSION] Compared to ECG 06/04/2023 16:25:47 ST (T wave) deviation now present Electronically Signed On 06-04-2023 19:34:04 CDT by Mian Rose M.D. [id number]
[2023-06-04] MEDS: ipratropium-albuterol 3 mL Neb INHALATION (18:48)
[2023-06-04] MEDS: iohexol 350 mg/mL 500 mL Btl (per mL) IV (19:07)
[2023-06-04 19:46] LABS: Troponin 5 2HR 30.89 ng/L (0-10)
[2023-06-04 19:48] LABS: Troponin 5 2HR Delta -4.11 ABS# (0-10)
[2023-06-04 20:47] LABS: Adenovirus Not Detected (NOT DETECT); Chlamydia Pneumoniae Not Detected (NOT DETECT); Coronavirus 229E,HKU1,NL63,OC4 Not Detected (NOT DETECT); Human Metapneumovirus Not Detected (NOT DETECT); Human Rhinovirus/Enterovirus Not Detected (NOT DETECT); Influenza A Not Detected (NOT DETECT); Influenza A H1 Not Detected (NOT DETECT); Influenza A H1-2009 Not Detected (NOT DETECT); Influenza A H3 Not Detected (NOT DETECT); Influenza B Not Detected (NOT DETECT); Mycoplasma Pneumoniae Not Detected (NOT DETECT); Parainfluenza Virus Type 1 Not Detected (NOT DETECT); Parainfluenza Virus Type 2 Not Detected (NOT DETECT); Parainfluenza Virus Type 3 Not Detected (NOT DETECT); Parainfluenza Virus Type 4 Not Detected (NOT DETECT); Respiratory Syncytial Virus A Not Detected (NOT DETECT); Respiratory Syncytial Virus B Not Detected (NOT DETECT); SARS-COV-2 Not Detected (NOT DETECT)
[2023-06-04] MEDS: acetaminophen 500 mg Tablet 1000 MG PO (21:02)
--- NOTE | 2023-06-04 21:02 | ECG_ITS ---
[facility] Test Date: 2023-06-04 Pat Name: Kelley Quezada Department: Room: 263 Gender: Female Audio/Video Engineer: : 1940 Requested By: Raffi Naidu Order Number: [id number] Yosef MD: Mian Rose M.D. Measurements Intervals [place] Rate: 121 P: -78 [place]: 207 QRS: 27 QRSD: 82 T: 32 QT: 292 QTc: 415 Interpretive Statements Irregurly irregular heart rhythm. Significant baseline artifact Electronically Signed On 06-05-2023 9:21:59 CDT by Mian Rose M.D. [email or web address] [email or web address] state hospitalTime Solutionsl[facility].[employer]/store/OM/[id number]
--- NOTE | 2023-06-04 22:07 | PC.NURSE ---
Addendum entered by Zulema Parry RN 06/04/23 22:07: Unable to complete med rec at this time. Original Note: Patient is able to tell me the names of a few of her medications, but not all of them. When asking the patient the dose of these medications, she states you're asking me something I don't know.
[2023-06-04 22:25] LABS: Glucose Point of Care 95 mg/dL (70-110)
[2023-06-04 22:55] LABS: Troponin 5 6HR 32.51 ng/L (0-10)
[2023-06-04 22:56] LABS: Troponin 5 6HR Delta -2.49 ng/L (0-12)
[2023-06-05] VITALS (10 sets, daily range): BP systolic 103–123; BP diastolic 70–84; PULSE 92–108; RESP 15–18; TEMP 36.6–36.9; O2SAT 92–96
--- NOTE | 2023-06-05 00:49 | PM.HP ---
Providers/Chief Complaint Admitting Physician: Vandana Ling MD Primary Care Provider: Jo Ledezma MD Chief Complaint: sob History of Present Illness Kelley Quezada is a 82 year old female with history of hypertension hyperlipidemia GERD presented with complaint of worsening shortness of breath for 2 weeks. She has a history of upper respiratory tract infection/acute sinusitis 2 weeks ago and was treated with oral antibiotics. Later she developed right-sided pneumonia as outpatient and was treated with p.o. Levaquin, but with no relief and subsequently she developed shortness of breath at rest. Shortness of breath is associated with cough productive of yellow-green sputum .she denied any fever cold urinary or bowel complaints. In ER she was found to be hypoxic, with WBC count of 17, Acute renal failure with creatinine of 1.5 and chest x-ray consistent with bibasilar airspace opacities. Review of Systems Narrative: As per HPI Medications/Allergies Home Medications Medication Instructions Recorded Confirmed Last Taken Type ascorbic acid (vitamin C) 1,000 mg 1 gm PO DAILY 09/09/19 05/28/23 06/14/22 History tablet diclofenac sodium 1 % topical gel 2 g topical QID #100 grams 02/16/22 05/28/23 Unknown Rx (Voltaren Arthritis Pain) calcium carbonate 600 mg calcium 600 mg PO DAILY 08/09/22 05/28/23 Unknown History (1,500 mg) tablet (Calcium) fluticasone propionate 50 2 spray intranasal DAILY #16 grams 12/12/22 05/28/23 Unknown Rx mcg/actuation nasal spray,suspension (Flonase Allergy Relief) lisinopril 40 mg tablet See Rx Instructions .Route 01/12/23 05/28/23 Unknown Rx .COMPLEX #180 tabs levothyroxine 125 mcg tablet See Rx Instructions .Route 02/01/23 05/28/23 Unknown Rx .COMPLEX #90 tabs metoprolol tartrate 37.5 mg tablet 37.5 mg PO BID 90 days #180 tabs 02/15/23 05/28/23 Unknown Rx ondansetron HCl 4 mg tablet 4 mg PO Q8H PRN nausea and 02/15/23 05/28/23 Unknown Rx vomiting #20 tabs clonidine HCl 0.1 mg tablet See Rx Instructions .Route 02/21/23 05/28/23 Unknown Rx .COMPLEX #60 tabs cyanocobalamin (vitamin B-12) 1,000 mcg IM .monthly 30 days #1 mL 03/01/23 05/28/23 Unknown Rx 1,000 mcg/mL injection solution febuxostat 40 mg tablet See Rx Instructions .Route 03/23/23 05/28/23 Unknown Rx .COMPLEX #90 tabs lovastatin 20 mg tablet See Rx Instructions .Route 03/28/23 05/28/23 Unknown Rx .COMPLEX #180 tabs hydrochlorothiazide 25 mg tablet See Rx Instructions .Route 04/18/23 05/28/23 Unknown Rx .COMPLEX #90 tabs letrozole 2.5 mg tablet (Femara) 2.5 mg PO DAILY #28 tabs 05/10/23 05/28/23 Unknown Rx albuterol sulfate 2.5 mg/3 mL 2.5 mg (3 mL) inhalation QID PRN 05/28/23 05/28/23 Unknown Rx (0.083 %) solution for nebulization shortness of breath or wheezing #90 mL levofloxacin 750 mg tablet 750 mg PO DAILY #7 tabs 05/28/23 05/28/23 Unknown Rx prednisone 10 mg tablets in a dose See Rx Instructions PO PER PKG DIR 05/28/23 05/28/23 Unknown Rx pack #21 ea chlordiazepoxide HCl 10 mg capsule 10 mg PO .qhs #30 caps 05/29/23 Unknown Rx omeprazole 40 mg capsule,delayed See Rx Instructions .Route 05/29/23 Unknown Rx release .COMPLEX #90 caps nystatin 100,000 unit/mL oral 2.5 ml PO TID #160 mL 06/04/23 Unknown Rx suspension Allergies Allergy/AdvReac Type Severity Reaction Status Date / Time adhesive Allergy Intermediate ALGY-Bliste Verified 06/04/23 16:32 r clarithromycin [From Biaxin] Allergy Intermediate thrush Verified 06/04/23 16:32 Penicillins Allergy Unknown Unknown Verified 06/04/23 16:32 PFSH Acute PFSH: Medical History Aortic valve sclerosis Breast cancer, left Breast cancer, left 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 Nu Hubbard [facility] Hx of appendectomy Hx of foot surgery bilateral Hx of left breast biopsy Hx of total thyroidectomy Hx of tubal ligation Family History Sister Cancer Breast Other Family history non-contributory Suicide Denies family history of Diabetes CAD (coronary artery disease) Clotting disorder Dementia Hyperlipidemia Psychiatric illness Chronic kidney disease (CKD) Anesthesia complication Bleeding disorder Lung disease Hypertension Stroke Social History Smoking and tobacco status: former smoker Quit status (tobacco): has quit using tobacco Year quit tobacco: in 20's Former quit date comment: Not sure of quit date Second hand smoke exposure: No Alcohol intake: never Substance/Drug Use: never Caregiver/support person: Yes Lives independently: Yes Household members: spouse Marital status: Current occupational status: retired Current gender identity: Female Special temi needs: No Agree to transfusion: Yes Vitals/I&O/Wt Last Vital Signs Temp 98.0 F 06/04/23 23:51 Pulse 105 H 06/04/23 23:51 Resp 15 06/04/23 23:51 BP 131/88 06/04/23 23:51 Pulse Ox 92 06/04/23 23:51 O2 Del Method Room Air 06/04/23 23:51 O2 Flow Rate 2 06/04/23 20:36 06/04/23 06/04/23 06/05/23 14:59 22:59 06:59 Intake Total 500 / 500 Balance 500 / 500 Weight last 48 hrs Weight 85.275 kg Physical Exam Narrative: She is alert awake oriented x3, in moderate respiratory distress, unable to speak in full sentences Chest bilateral coarse rhonchi and wheezing present Cardiovascular normal heart sounds no murmurs Abdomen soft nondistended nontender normal bowel sounds Extremities trace pitting pedal edema bilaterally Data 06/04/23 16:43 06/04/23 16:43 Micro: Microbiology 06/04/23 16:48 Blood Culture - Preliminary Blood SPECIMEN COLLECTED 06/04/23 16:43 Blood Culture - Preliminary Blood SPECIMEN COLLECTED CTA Chest: Radiologist's impression: IMPRESSION: 1. ? Negative for pulmonary embolus. 2. ? Patchy bilateral ground-glass and airspace opacifications may reflect a combination of alveolar edema and/or pneumonic infiltrates. 3. ? Coronary artery atherosclerotic calcifications. 4. ? Mild cardiomegaly. 5. ? Hepatic steatosis. 6. ? Reflux of contrast in the intrahepatic veins may reflect a degree of congestive heart failure. 7. ? Cholelithiasis. 8. ? Right kidney cyst, negative for follow-up advised. 9. ? T9 vertebral body sclerotic bony lesion, may reflect metastatic disease, please correlate clinically of bone cement is been administered. 10. ? T6 vertebral body compression fracture without retropulsion of bony fragments. 11. ? Spinal stimulator. CXR: Radiologist's impression: FINDINGS: Tubes, catheters and devices: Neurostimulator lead tips terminate at about the T6 and T8 levels. Lungs: Stable small nodule in the right lung. New line no consolidation. Pleural spaces: Unremarkable. No pleural effusion. No pneumothorax. Heart/Mediastinum: Unremarkable. No cardiomegaly. Diaphragm: There is marked elevation of the right hemidiaphragm. Bones/joints: Unremarkable. Soft tissues: There are left axillary clips. EKG 1: Matrix Plater Interpretation: ELECTRONIC ATRIAL PACEMAKER MODERATE ST DEPRESSION? [0.05+ mV ST DEPRESSION] Compared to ECG 06/04/2023 16:25:47 ST (T wave) deviation now present A&P Assessment and plan (1) Acute hypoxic respiratory failure: (2) Pneumonia: Qualifiers: Laterality: bilateral Lung location: unspecified part of lung Pneumonia type: due to unspecified organism Qualified Code(s): J18.9 - Pneumonia, unspecified organism (3) Acute renal failure: Plan 82-year-old female with history of hypertension hyperlipidemia GERD presented with complaint of worsening shortness of breath and cough since 2 weeks, was treated outpatient for acute sinusitis and pneumonia but did not improve likely secondary to worsening bilateral bibasilar airspace opacities/pneumonia. Will give IV ceftriaxone 1 g daily IV azithromycin 500 mg daily DuoNebs every 6 hours Recheck labs in a.m. Resume home medications Cardiac diet IV Pepcid 20 mg every 12 hours for stress ulcer prophylaxis Subcutaneous Lovenox 40 mg daily for DVT prophylaxis She is full code for now Attestations Medical Necessity Statement*: She needs more than 2 days of continued hospitalization for IV antibiotics and fluids Time Spent in Patient Care: 30 minutes Coding Level of Care Code Acute Code for [facility] Diagnoses Acute hypoxic respiratory failure J96.01 Pneumonia J18.9 Laterality: bilateral Lung location: unspecified part of lung Pneumonia type: due to unspecified organism Acute renal failure N17.9 Time Spent (min) 30
[2023-06-05] MEDS: enoxaparin 40 mg/0.4 mL Syringe SUBCUT (01:29)
[2023-06-05] MEDS: sodium chloride 0.9% 1,000 ML 75 ML IV (01:29)
[2023-06-05] MEDS: cefTRIAXone 1,000 MG in sodium chloride 0.9% (plus) 50 ML 100 MG IV ×2 (01:29→22:50)
[2023-06-05] MEDS: famotidine 20 mg/2 mL INJ IVP ×3 (01:29→22:46)
[2023-06-05] MEDS: azithromycin 500 MG in sodium chloride 0.9% 250 ML 250 MG IV ×2 (01:59→23:56)
[2023-06-05] MEDS: ondansetron 2 mg/ML SDV 2 mL 4 MG IVP (03:06)
[2023-06-05 05:09] LABS: Basophils % 0.1 %; Eosinophils # 0.1 10^3/uL (0.0-0.8); Eosinophils % 0.5 %; Hematocrit 42.2 % (36-47); Lymphocytes # 1.9 10^3/uL (0.8-4.8); Lymphocytes % 13.2 %; Mean Corpuscular HGB Conc 31.5 g/dL (30-55); Mean Corpuscular Hemoglobin 29.6 pg (27-33); Mean Platelet Volume 9.8 fL (7.4-10.4); Monocytes % 6.9 %; Neutrophils # 11.41 10^3/uL (1.8-7.7); Neutrophils % 78.5 %; Nucleated Red Blood Cells % 0 %; Platelet Count 264 10^3/cmm (157-399); Red Blood Count 4.49 10^6/uL (3.85-5.65); Red Cell Distribution Width 13.3 % (12.1-15.1); White Blood Count 14.56 10^3/uL (3.29-11.43)
[2023-06-05] MEDS: levothyroxine 125 mcg Tablet PO (05:31)
[2023-06-05 06:36] LABS: Glucose Point of Care 92 mg/dL (70-110)
[2023-06-05 06:49] LABS: Alanine Aminotransferase 10 U/L (0-33); Albumin Level 2.8 g/dL (3.5-5.2); Alkaline Phosphatase 50 U/L (35-105); Aspartate Amino Transferase 12 U/L (0-32); Blood Urea Nitrogen 38 mg/dL (8-23); Calcium 7.5 mg/dL (8.5-10.5); Carbon Dioxide 26 mmol/L (22-29); Chloride 95 mmol/L (98-107); Globulin 2.4 g/dL (1.3-4.6); Glucose 78 mg/dL (65-115); Magnesium 1.7 mg/dL (1.7-2.3); Osmolality Calculated 278 mOsm/kg (285-295); Phosphorus 4.4 mg/dL (2.5-4.5); Sodium 130 mmol/L (136-145); Total Bilirubin 0.4 mg/dL (0.15-1.2); Total Protein 5.2 g/dL (6.6-8.7)
[2023-06-05 06:50] LABS: Anion Gap 13.2 (5-19); Potassium 4.2 mmol/L (3.5-5.1)
--- NOTE | 2023-06-05 09:33 | PC.CHAP ---
Pastoral Care Encounter/Spiritual Assessment Type of Contact [] Declined fiber artist visit [] Patient/Family/Request visit [] Outpatient visit [] Follow-up visit [] Physician referral [] Code/Alert [x] Routine visit [] Staff referral [] Actively dying [] Patient sleeping [] Family support [] [] Out of room [] Palliative care [] [] Receiving care in room [] Pre-surgical visit [] Trauma [] Long length of stay [] ICU visit [] Other: Relational/Emotional Strength [x] Patient feels connected with others/family/visitors/staff [] Distress [] Loneliness/isolation [] Abandonment Spirituality of Patient [x] Person of Cynthia [] Attends Scientology of their Cynthia [x] Believes in Prayer [] Reads Bible or Baptist materials [] There are Spiritual issues to be addressed Fine Dining Server Interventions [x] Prayer [x] Active listening [] Non-anxious presence [x] Spiritual/emotional support [] Crisis/trauma care [] Spiritual counseling [] Bereavement support [] Provided bereavement packet [] Provided Bible/devotional materials [] Provided toy/stuffed animal, coloring book to patient or family member [] Provided Communion [] Anointing/[place] [] Salvation [] Completed spiritual assessment [] Other: Impact on Illness or Injury [] Angry [] Fearful [] Anxious [] Often cries [] Exhaustion [] Unable to work [] Unable to attend anabaptist [] Unable to walk/stand [] Unable to read [] Unable to drive [] Unable to eat/drink [] Unable to sleep [] Unable to be with family [] Patient intubated [] Other: Summary 5 min Time spent with patient
[2023-06-05] MEDS: ipratropium-albuterol 3 mL Neb INHALATION ×3 (09:40→20:09)
[2023-06-05 09:49] LABS: NT Pro B Type Natriuretic Pept 918 pg/mL (0-450)
[2023-06-05] MEDS: metoprolol tartrate 25 mg Tablet 37.5 MG PO ×2 (10:44→18:19)
[2023-06-05] MEDS: lisinopril 20 mg Tablet 80 MG PO (10:44)
[2023-06-05] MEDS: cloNIDine 0.1 mg Tablet PO ×2 (10:45→18:18)
[2023-06-05] MEDS: atorvastatin 40 mg Tablet 20 MG PO (10:45)
[2023-06-05] MEDS: hydroCHLOROthiazide 25 mg Tablet PO (10:47)
[2023-06-05] MEDS: fluticasone nasal spray 16gm Btl 2 SPRAY INTRANASAL (10:52)
--- NOTE | 2023-06-05 15:35 | P.PN_ITS ---
Subjective Subjective: She is having some cough, congestion. Denies chest pain. Overall feels somewhat better. Vitals/I&O/Wt Last Vital Signs Temp 98.5 F 06/05/23 11:14 Pulse 98 06/05/23 14:23 Resp 16 06/05/23 14:10 BP 115/76 06/05/23 11:14 Pulse Ox 95 06/05/23 14:10 O2 Del Method Room Air 06/05/23 14:10 O2 Flow Rate 2 06/04/23 20:36 06/05/23 06/05/23 06/05/23 06:59 14:59 22:59 Intake Total 300 / 800 1417 / 1417 Output Total 200 / 200 Balance 100 / 600 1417 / 1417 Weight last 48 hrs Weight 85.275 kg Physical Exam Const: COMMON NORMALS: patient oriented x3 and alert GENERAL APPEARANCE: cooperative NUTRITIONAL APPEARANCE: overweight ORIENTATION/CONSCIOUSNESS: Yes awake HENMT: COMMON NORMALS: oropharynx normal Neck/C-Spine: COMMON NORMALS: no JVD Resp: COMMON NORMALS: normal respiratory effort AUSCULTATION: diminished lung sounds on the right in the lower lung goldman OTHER: Wheezing, rhonchi RML Cardio: COMMON NORMALS: no JVD, regular rhythm, S1 normal heart sound present, S2 normal heart sound present and No murmurs present (Cardio) RHYTHM: regular rhythm HEART SOUNDS: S1 normal heart sound present and S2 normal heart sound present GI: COMMON NORMALS: Normal to inspection, nondistended, normoactive bowel sounds present, Soft to palpation and non-tender PALPATION: Yes Soft to palpation Extremity: COMMON NORMALS: no joint enlargement and no pedal edema Neuro: COMMON NORMALS: patient oriented x3 and moves all extremities SENSORIUM/ORIENTATION: Yes alert Skin: COMMON NORMALS: no rashes or lesions noted GENERAL SKIN EXAM: no r ashes or lesions noted Data 06/05/23 04:38 06/05/23 06:08 Micro: Microbiology 06/04/23 17:34 Gram Stain - Final Sputum - Expectorated Sputum 06/04/23 16:48 Blood Culture - Preliminary Blood SPECIMEN COLLECTED 06/04/23 16:43 Blood Culture - Preliminary Blood SPECIMEN COLLECTED A&P Assessment and plan (1) Acute hypoxic respiratory failure: (2) Pneumonia: Qualifiers: Laterality: bilateral Lung location: unspecified part of lung Pneumonia type: due to unspecified organism Qualified Code(s): J18.9 - Pneumonia, unspecified organism (3) Acute renal failure: Plan 82-year-old female with history of hypertension hyperlipidemia GERD presented with complaint of worsening shortness of breath and cough since 2 weeks, was treated outpatient for acute sinusitis and pneumonia but did not improve likely secondary to worsening bilateral bibasilar airspace opacities/pneumonia. Complicated community-acquired pneumonia with outpatient treatment failure. Parapneumonic effusion. At risk of progression, decompensation, respiratory failure. Discussed with her primary care physician, discussed risk of complication, empyema, discussed consideration of thoracentesis including risks and benefits, discussion included risk with thoracentesis including pneumothorax, bleeding, discussed benefit of additional fluid, relief from fluid collection, she would like to think about and discuss with her . On follow-up she is agreeable to proceed. Requesting for thoracentesis and fluid analysis. Reviewed sputum culture, so far pending. Gram stain with GPC in pairs, GPR, rare budding yeast. Reviewed blood culture. Reviewed WBC, no leukocytosis 14.56, reviewed neutrophils, predominantly neutrophilic 11.4. Reviewed COVID PCR panel noted negative. Reviewed chemistry, noted BUN 38, creatinine 1.5 but with underlying CKD. Reviewed electrolytes, noted mild hyponatremia 130. Follow-up chemistry. Reviewed acid-base balance. Reviewed liver parameters, noted WNL. Reviewed troponin noted moderate elevation without peak. She denies any chest pain or pressure. May be some demand ischemia secondary to pneumonia, no suggestion of acute IA at this time. Monitor symptoms. With CKD may risk of electrolyte abnormalities, treatment with azithromycin may be at risk of QT abnormality. Reassess chemistries. Repeat EKG. Some improvement in oxygenation, came down to room air. Monitor oxygenation. Support as needed. Discussed with case management. Will benefit from home due to reevaluation prior to discharge to assess if needing oxygen support while recovering. Continue supportive care, breathing treatments. Stop IV fluids. Hypertension: Continue lisinopril, HCTZ. Metoprolol. Monitor blood pressures. Stop IV fluids. CKD Cardiac diet Hold VTE prophylaxis for now with Lovenox in anticipation of thoracentesis. SCD instead. She is full code for now Attestations Medical Necessity Statement*: Continue admission for assessment management of complicated comminuted acquired pneumonia in an elderly lady with failure of outpatient treatment, parapneumonic effusion. Diagnoses Acute hypoxic respiratory failure J96.01 Pneumonia J18.9 Laterality: bilateral Lung location: unspecified part of lung Pneumonia type: due to unspecified organism Acute renal failure N17.9
--- NOTE | 2023-06-05 15:47 | PC.NURSE ---
Patient does not want the flu or pneumonia vaccine while she is sick.
--- NOTE | 2023-06-05 22:15 | ECG_ITS ---
[facility] Test Date: 2023-06-05 Pat Name: Kelley Quezada Department: Room: 264 Gender: Female Senior Office Assistant: : 1940 Requested By: Maulik Goldberg Order Number: [id number] Yosef MD: Mian Rose M.D. Measurements Intervals [place] Rate: 92 P: 38 AK: 137 QRS: 17 QRSD: 87 T: 44 QT: 325 QTc: 403 Interpretive Statements Irregurly irregular heart rhythm. Significant baseline artifact Compared to ECG 06/04/2023 21:02:00 No significant changes Electronically Signed On 06-05-2023 23:09:04 CDT by Mian Rose M.D. [id number]
[2023-06-06] VITALS (10 sets, daily range): BP systolic 100–133; BP diastolic 67–81; PULSE 74–99; RESP 16–18; TEMP 36.4–36.7; O2SAT 85–96
[2023-06-06] MEDS: levothyroxine 125 mcg Tablet PO (05:46)
[2023-06-06 05:54] LABS: Eosinophils # 0.1 10^3/uL (0.0-0.8); Eosinophils % 1.3 %; Hematocrit 37.4 % (36-47); Lymphocytes # 1.6 10^3/uL (0.8-4.8); Lymphocytes % 16.8 %; Mean Corpuscular Hemoglobin 28.9 pg (27-33); Mean Corpuscular Volume 93.3 fl (85-98); Mean Platelet Volume 9.5 fL (7.4-10.4); Monocytes # 0.8 10^3/uL (0.2-0.9); Monocytes % 8.4 %; Neutrophils # 6.81 10^3/uL (1.8-7.7); Neutrophils % 72.8 %; Nucleated Red Blood Cells % 0 %; Platelet Count 207 10^3/cmm (157-399); Red Blood Count 4.01 10^6/uL (3.85-5.65); Red Cell Distribution Width 13.3 % (12.1-15.1); White Blood Count 9.36 10^3/uL (3.29-11.43)
[2023-06-06 06:13] LABS: Anion Gap 11.2 (5-19); Blood Urea Nitrogen 34 mg/dL (8-23); Calcium 7.6 mg/dL (8.5-10.5); Carbon Dioxide 28 mmol/L (22-29); Chloride 97 mmol/L (98-107); Glucose 96 mg/dL (65-115); Osmolality Calculated 281 mOsm/kg (285-295); Potassium 4.2 mmol/L (3.5-5.1); Sodium 132 mmol/L (136-145)
[2023-06-06] MEDS: ipratropium-albuterol 3 mL Neb INHALATION (08:23)
--- NOTE | 2023-06-06 08:31 | ECG_ITS ---
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 Measurements Intervals [place] Rate: 104 P: -12 ME: 336 QRS: -5 QRSD: 85 T: 10 QT: 316 QTc: 416 Interpretive Statements Probable atrial fibrillation MODERATE VOLTAGE CRITERIA FOR LVH, CONSIDER NORMAL VARIANT [MEETS CRITERIA IN ONE OF: R(aVL), S(V1), R(V5), R(V5/V6)+S(V1)] ABNORMAL RHYTHM ECG Compared to ECG 06/05/2023 22:25:11 No significant changes Electronically Signed On 06-06-2023 16:49:44 CDT by Alex Watkins M.D. [id number]
[2023-06-06] MEDS: nystatin 100,000 unit/mL UDC 5 mL 500000 UNIT PO (08:39)
[2023-06-06] MEDS: cloNIDine 0.1 mg Tablet PO (08:39)
[2023-06-06] MEDS: hydroCHLOROthiazide 25 mg Tablet PO (08:40)
[2023-06-06] MEDS: metoprolol tartrate 25 mg Tablet 37.5 MG PO (08:40)
[2023-06-06] MEDS: atorvastatin 40 mg Tablet 20 MG PO (08:41)
[2023-06-06] MEDS: lisinopril 20 mg Tablet 80 MG PO (08:41)
[2023-06-06] MEDS: fluticasone nasal spray 16gm Btl 2 SPRAY INTRANASAL (08:42)
--- NOTE | 2023-06-06 10:00 | US_ITS ---
WS: [id number] Ultrasound chest, bilateral. HISTORY: Possible effusions. Ultrasound is negative involving the chest to evaluate for pleural effusions. No fluid is identified. Also no significant amount of fluid was identified on the recent chest CT of 06/04/2023. IMPRESSION: No pleural effusions.
--- NOTE | 2023-06-06 10:17 | P.DS_ITS ---
Discharge Providers Date of Admission: 06/04/23 20:37 Date of Discharge: June 06, 2023 Attending Provider at Admission: Vandana Ling MD Attending Provider at Discharge: Maulik Goldberg Primary Care Provider: Jo Ledezma MD Diagnoses at Discharge Discharge Diagnosis (1) Acute hypoxic respiratory failure: Status: Acute (2) Pneumonia: Status: Acute Qualifiers: Laterality: bilateral Lung location: unspecified part of lung Pneumonia type: due to unspecified organism Qualified Code(s): J18.9 - Pneumonia, unspecified organism (3) Acute renal failure: Status: Acute Reason for Visit Reason for Visit: sob Hospital Course Hospital Course Pleasant 82-year-old lady with history of HTN, HLD, GERD, other medical problems was admitted for treatment after receiving outpatient treatment with oral antibiotics due to upper respiratory tract infection and acute sinusitis 2 weeks previously, later developed right-sided pneumonia as outpatient, received treatment with Levaquin, but developed shortness of breath at rest, cough productive of yellow-green sputum. Has been afebrile. CT angiogram chest was obtained which showed no pulmonary embolism. Showed patchy bilateral groundglass airspace opacification, alveolar edema and/or pneumonic infiltrates. Mild cardiomegaly. Coronary artery atherosclerosis. Incidental findings included hepatic steatosis, reflux contrast into hepatic veins possibly degree of congestive heart failure, cholelithiasis, right kidney cyst, negative for follow-up advised. T9 vertebral body sclerotic bony lesion may reflect metastatic disease, please correlate clinically of bone cement. T6 vertebral body compression fracture without retropulsion of bony fragments. Spinal stimulator. She has remained free of chest pain. Troponin series with moderate elevation 35-31-33, suspected demand ischemia. She was not clinically in congestive heart failure. Was started on ceftriaxone, azithromycin. COVID 19 PCR panel was negative. Sputum culture was obtained and is pending. So far gram-positive cocci in pairs, gram-positive rods, rare budding yeast on Gram stain. No growth yet on culture. Please follow-up. She required minimal oxygen 2 L on present ation, has weaned off oxygen and saturating 93% on room air. Remains afebrile. Leukocytosis initially 17.8 has resolved to normal. She has been up and about. Took a shower today. Did get tired after the shower. Still maintaining saturation. Home oxygen evaluation is requested and she is discharged home with course of cefdinir. She does still have some wheezing, and does appear to have a component of reactive airway disease due to which she is given a prednisone taper. Please follow-up for continued resolution of symptoms, in case of persistence or recurrence consider further evaluation, repeat imaging, pulmonary function testing, assessment by pulmonology. Continue follow-up with regards to suspicious T9 lesion. Follow-up regarding symptoms of finding of hepatic steatosis. Follow-up regarding incidental finding of cholelithiasis. Follow-up regarding incidental finding of mild cardiomegaly, monitor for signs of congestive heart failure. Consider nonemergent echocardiogram. Physical Exam Narrative: Sitting up in a chair. Appears better, more energetic, in good spirits. Dressed in street clothes. Const: COMMON NORMALS: patient oriented x3 and alert GENERAL APPEARANCE: cooperative ORIENTATION/CONSCIOUSNESS: Yes awake HENMT: COMMON NORMALS: oropharynx normal Neck/C-Spine: COMMON NORMALS: no JVD Resp: COMMON NORMALS: normal respiratory effort AUSCULTATION: wheezes right upper Cardio: COMMON NORMALS: no JVD, regular rhythm, S1 normal heart sound present, S2 normal heart sound present and No murmurs present (Cardio) RHYTHM: regular rhythm HEART SOUNDS: S1 normal heart sound present and S2 normal heart sound present GI: COMMON NORMALS: Normal to inspection, nondistended, normoactive bowel sounds present, Soft to palpation and non-tender PALPATION: Yes Soft to palpation Extremity: COMMON NORMALS: no joint enlargement and no pedal edema Neuro: COMMON NORMALS: patient oriented x3 and moves all extremities SENSORIUM/ORIENTATION: Yes alert Skin: COMMON NORMALS: no rashes or lesions noted GENERAL SKIN EXAM: no rashes or lesions noted Discharge Data Studies Completed and Pending Completed Studies During Hospitalization Category Date Time Status CT angio chest PE protcl [id number] Stat Cat Scan 06/04/23 17:22 Completed XR chest 1V portable [id number] Stat Exams 06/04/23 16:22 Completed Pending at discharge Category Date Time Status Albumin Body Fluid Routine Lab 06/05/23 15:43 Ordered Basic Metabolic Panel AM LABS Lab 06/07/23 04:00 Ordered Basic Metabolic Panel AM LABS Lab 06/08/23 04:00 Ordered Blood Culture Stat Lab 06/04/23 16:48 Results Body Fluid Analysis Routine Lab 06/05/23 15:43 Ordered Body Fluid Culture & GS Routine Lab 06/05/23 15:43 Ordered Complete Blood Count w/Auto AM LABS Lab 06/07/23 04:00 Ordered Complete Blood Count w/Auto AM LABS Lab 06/08/23 04:00 Ordered Cyto Order Verification Routine Lab 06/05/23 15:43 Ordered Glucose Pleural Fluid Routine Lab 06/05/23 15:43 Ordered Hematocrit Body Fluid Routine Lab 06/05/23 15:43 Ordered LDH Pleural Fluid Routine Lab 06/05/23 15:43 Ordered Mycobacteria, Culture w/Fluor Routine Lab 06/05/23 15:43 Ordered Sputum Culture and Gram Stain Stat Lab 06/04/23 17:34 Results Total Protein Pleural Fluid Routine Lab 06/05/23 15:43 Ordered pH Pleural Fluid Routine Lab 06/05/23 15:43 Ordered Cytology [PTH] Routine Pth 06/05/23 15:43 [place] chest [id number] Routine Ultrasound 06/06/23 10:00 Ordered Radiology Impressions Chest X-Ray 06/04/23 16:22 IMPRESSION: Stable nonacute findings. Chest CTA 06/04/23 17:22 IMPRESSION: 1. Negative for pulmonary embolus. 2. Patchy bilateral ground-glass and airspace opacifications may reflect a combination of alveolar edema and/or pneumonic infiltrates. 3. Coronary artery atherosclerotic calcifications. 4. Mild cardiomegaly. 5. Hepatic steatosis. 6. Reflux of contrast in the intrahepatic veins may reflect a degree of congestive heart failure. 7. Cholelithiasis. 8. Right kidney cyst, negative for follow-up advised. 9. T9 vertebral body sclerotic bony lesion, may reflect metastatic disease, please correlate clinically of bone cement is been administered. 10. T6 vertebral body compression fracture without retropulsion of bony fragments. 11. Spinal stimulator. Laboratory Results WBC 9.36 10^3/uL (3.29-11.43) 06/06/23 05:13 RBC 4.01 10^6/uL (3.85-5.65) 06/06/23 05:13 Hgb 11.60 g/dL (11.27-16.99) 06/06/23 05:13 Hct 37.4 % (36-47) 06/06/23 05:13 MCV 93.3 fl (85-98) 06/06/23 05:13 MCH 28.9 pg (27-33) 06/06/23 05:13 MCHC 31.0 g/dL (30-55) 06/06/23 05:13 RDW 13.3 % (12.1-15.1) 06/06/23 05:13 Plt Count 207 10^3/cmm (157-399) 06/06/23 05:13 MPV 9.5 fL (7.4-10.4) 06/06/23 05:13 Neut % (Auto) 72.8 % 06/06/23 05:13 Lymph % (Auto) 16.8 % 06/06/23 05:13 [place] % (Auto) 8.4 % 06/06/23 05:13 Eos % (Auto) 1.3 % 06/06/23 05:13 Baso % (Auto) 0.0 % 06/06/23 05:13 Neut # (Auto) 6.81 10^3/uL (1.8-7.7) 06/06/23 05:13 Lymph # (Auto) 1.6 10^3/uL (0.8-4.8) 06/06/23 05:13 [place] # (Auto) 0.8 10^3/uL (0.2-0.9) 06/06/23 05:13 Eos # (Auto) 0.1 10^3/uL (0.0-0.8) 06/06/23 05:13 Baso # (Auto) 0.0 10^3/uL (0.0-0.1) 06/06/23 05:13 Nucleated RBC % (auto) 0 % 06/06/23 05:13 Nucleated RBCs # 0.0 /100WBC 06/06/23 05:13 Sodium 132 mmol/L (136-145) L 06/06/23 05:13 Potassium 4.2 mmol/L (3.5-5.1) 06/06/23 05:13 Chloride 97 mmol/L (98-107) L 06/06/23 05:13 Carbon Dioxide 28 mmol/L (22-29) 06/06/23 05:13 Anion Gap 11.2 (5-19) 06/06/23 05:13 BUN 34 mg/dL (8-23) H 06/06/23 05:13 Creatinine 1.6 mg/dL (0.5-0.9) H 06/06/23 05:13 GFR Calculation Not Reportable 06/06/23 05:13 Glucose 96 mg/dL (65-115) 06/06/23 05:13 POC Glucose 92 mg/dL (70-110) 06/05/23 06:31 Calculated Osmolality 281 mOsm/kg (285-295) L 06/06/23 05:13 Calcium 7.6 mg/dL (8.5-10.5) L 06/06/23 05:13 Phosphorus 4.4 mg/dL (2.5-4.5) 06/05/23 06:08 Magnesium 1.7 mg/dL (1.7-2.3) 06/05/23 06:08 Total Bilirubin 0.4 mg/dL (0.15-1.2) 06/05/23 06:08 AST 12 U/L (0-32) 06/05/23 06:08 ALT 10 U/L (0-33) 06/05/23 06:08 Alkaline Phosphatase 50 U/L (35-105) 06/05/23 06:08 Troponin T Baseline 35 ng/L (0-10) H 06/04/23 16:43 Troponin T 120 Minute 30.89 ng/L (0-10) H 06/04/23 19:15 Delta Troponin T -4.11 ABS# (0-10) L 06/04/23 19:15 Troponin T Hi Sens 6Hr 32.51 ng/L (0-10) H 06/04/23 22:28 Troponin T Hi Sens 6Hr Delta -2.49 ng/L (0-12) L 06/04/23 22:28 NT-Pro-B Natriuret Pep 918 pg/mL (0-450) H 06/05/23 06:08 Total Protein 5.2 g/dL (6.6-8.7) L 06/05/23 06:08 Albumin 2.8 g/dL (3.5-5.2) L 06/05/23 06:08 Globulin 2.4 g/dL (1.3-4.6) 06/05/23 06:08 Coronavirus 229E (PCR) Not detected (NOT DETECT) 06/04/23 18:50 SARS-CoV-2 (PCR) Not detected (NOT DETECT) 06/04/23 18:50 Vitals Last Vital Signs Temp 97.8 F 06/06/23 07:33 Pulse 99 06/06/23 08:20 Resp 18 06/06/23 08:00 BP 106/69 06/06/23 08:39 Pulse Ox 93 06/06/23 08:00 O2 Del Method Room Air 06/06/23 08:00 O2 Flow Rate 0 06/06/23 08:00 Discharge Plan Discharge Patient Disposition: Home Condition: Stable Prescriptions: New azithromycin 250 mg tablet 250 mg PO DAILY 5 Days Qty: 5 0RF cefdinir 300 mg capsule 300 mg PO BID 5 Days Qty: 10 0RF prednisone 20 mg tablet 10 mg PO DAILY Qty: 10 0RF Rx Instructions: 20mg for 3 days, then 10mg for 3 days, then 5mg for 2 days Continued ascorbic acid (vitamin C) 1,000 mg tablet 1 gm PO DAILY ondansetron HCl 4 mg tablet 4 mg PO Q8H PRN (Reason: nausea and vomiting) Qty: 20 0RF metoprolol tartrate 37.5 mg tablet 37.5 mg PO BID 90 Days Qty: 180 0RF febuxostat 40 mg tablet See Rx Instructions .ROUTE .COMPLEX Qty: 90 1RF Dose Instruction: TAKE ONE TABLET BY MOUTH DAILY. Rx Instructions: Uloric - TAKE ONE TABLET BY MOUTH DAILY. calcium carbonate [Calcium 600] 600 mg calcium (1,500 mg) tablet 600 mg PO DAILY cyanocobalamin (vitamin B-12) 1,000 mcg/mL solution 1,000 mcg IM .monthly 30 Days Qty: 1 5RF Rx Instructions: inject 1 ml 1 time weekly for 4 weeks then 1 time monthly lisinopril 40 mg tablet See Rx Instructions .ROUTE .COMPLEX Qty: 180 1RF Dose Instruction: Take 2 tablets by mouth once daily Rx Instructions: Take 2 tablets by mouth once daily levothyroxine 125 mcg tablet See Rx Instructions .ROUTE .COMPLEX Qty: 90 1RF Dose Instruction: Take 1 tablet by mouth once daily Rx Instructions: Take 1 tablet by mouth once daily clonidine HCl 0.1 mg tablet See Rx Instructions .ROUTE .COMPLEX Qty: 60 3RF Dose Instruction: Take 1 tablet by mouth twice daily Rx Instructions: Take 1 tablet by mouth twice daily lovastatin 20 mg tablet See Rx Instructions .ROUTE .COMPLEX Qty: 180 1RF Dose Instruction: Take 2 tablets by mouth once daily Rx Instructions: Take 2 tablets by mouth once daily hydrochlorothiazide 25 mg tablet See Rx Instructions .ROUTE .COMPLEX Qty: 90 0RF Dose Instruction: TAKE 1 TABLET BY MOUTH ONCE DAILY IN THE MORNING Rx Instructions: TAKE 1 TABLET BY MOUTH ONCE DAILY IN THE MORNING letrozole [Femara] 2.5 mg tablet 2.5 mg PO DAILY Qty: 28 0RF chlordiazepoxide HCl 10 mg capsule 10 mg PO .qhs Qty: 30 5RF omeprazole 40 mg capsule,delayed release(DR/EC) See Rx Instructions .ROUTE .COMPLEX Qty: 90 1RF Dose Instruction: Take 1 capsule by mouth once daily Rx Instructions: Take 1 capsule by mouth once daily nystatin 100,000 unit/mL suspension 2.5 ml PO TID Qty: 160 0RF Rx Instructions: swish and swallow albuterol sulfate 2.5 mg /3 mL (0.083 %) solution for nebulization 2.5 mg inhalation QID PRN (Reason: shortness of breath or wheezing) Qty: 90 0RF Discontinued diclofenac sodium [Voltaren Arthritis Pain] 1 % gel 2 g topical QID Qty: 100 0RF Hold Instructions: Resume on 06/18/22. Rx Instructions: apply to ankle Discharge Orders: Discharge Order (Routine); Ordered 06/06/23 Ordered By: Maulik Goldberg Referrals: Jo Ledezma MD [Primary Care Provider] - 4-7 days (We have notified your physician's clinic of the need for a follow-up appointment to be scheduled. If you have not heard from them within the next 2 business days, please call them directly. You may also reach out to our manager business development hospice at [phone] and she can assist you.) Discharge Diet: Cardiac Discharge Activity: Increase activity as tolerated Patient Instructions: Prednisone (By mouth), Azithromycin (By mouth), Cefdinir (By mouth), Community Acquired Pneumonia (GEN) Activity Restrictions/Additional Instructions: Complete antibiotic course for pneumonia. Prednisone taper is given as discussed due to reactive bronchi/wheezing. Follow up with your primary provider for reassessment of improvement. In case of persistent or recurrent symptoms consider follow up imaging, pulmonary function testing and follow up with pulmonology. Follow up regarding suspicious bony lesion in T9 vertebral body. Follow up with your primary provider regarding fatty liver infiltration. Continue follow up regarding chronic kidney disease and hypertension. Follow up with your primary provider regarding gallstones. Follow-up with your primary provider regarding right kidney cyst. Discharge Attestations Time Spent in Discharge Care*: greater than 30 min Quality Metrics Clinical Quality Measures [ No reported AMI, CVA or VTE this stay] Coding Level of Care Code 73428 Total time (in minutes) for Discharge: 40 Diagnoses Acute hypoxic respiratory failure J96.01 Pneumonia J18.9 Laterality: bilateral Lung location: unspecified part of lung Pneumonia type: due to unspecified organism Acute renal failure N17.9
== END 2023-06-06 13:39 | disposition home or self-care (01) | DRG 193 ==
LOC: ER 20:32 → MEDSURG 21:06
PROVIDERS: Admitting Provider Internal Medicine; Emergency Provider Family Medicine; PCP Family Medicine; Visit Provider Internal Medicine
DX: J18.9 Pneumonia, unspecified organism (principal); J96.01 Acute respiratory failure with hypoxia; N17.9 Acute kidney failure, unspecified; I24.89 Other forms of acute ischemic heart disease; I10 Essential (primary) hypertension; E78.5 Hyperlipidemia, unspecified; K21.9 Gastro-esophageal reflux disease without esophagitis; I25.10 Atherosclerotic heart disease of native coronary artery without angina pectoris; K76.0 Fatty (change of) liver, not elsewhere classified; Z96.82 Presence of neurostimulator; Z20.822 Contact with and (suspected) exposure to COVID-19; M89.9 Disorder of bone, unspecified; K80.20 Calculus of gallbladder without cholecystitis without obstruction; I51.7 Cardiomegaly; C50.411 Malignant neoplasm of upper-outer quadrant of right female breast; Z17.1 Estrogen receptor negative status [ER-]; M10.9 Gout, unspecified; E89.0 Postprocedural hypothyroidism; M48.062 Spinal stenosis, lumbar region with neurogenic claudication; Z87.891 Personal history of nicotine dependence; Z96.641 Presence of right artificial hip joint; M81.0 Age-related osteoporosis without current pathological fracture; E78.2 Mixed hyperlipidemia
CPT/HCPCS: 36415; 36416; 71045; 71275; 76604; 80048; 80053; 82962; 83735; 83880; 84100; 84484; 85025; 87040; 87070; 87106; 87205; 87635; 93005; 94640; 94760; 96372; 99285; J0456; J0696; J1650; J2405; J3490; J7030; J7040; J7050; Q9967

== ENCOUNTER → 2023-06-14 11:53 | Outpatient (BNVA) | payer MEDICARE, OTHER, SELFPAY | PROVIDERS: PCP Family Medicine; Visit Provider Nurse Practitioner Family | DX: J18.9 Pneumonia, unspecified organism; I25.10 Atherosclerotic heart disease of native coronary artery without angina pectoris | CPT/HCPCS: 71046 ==

== ENCOUNTER 2023-07-27 09:49 | Oncology outpatient (recurring) (ONCR) | payer MEDICARE, OTHER, SELFPAY ==
[2023-07-27] MEDS: denosumab 60 mg SDV SUBCUT (11:18)
== END 2023-08-26 23:59 | disposition home or self-care (01) ==
PROVIDERS: PCP Family Medicine; Visit Provider Internal Medicine Hematology & Oncology
DX: C50.812 Malignant neoplasm of overlapping sites of left female breast (principal); Z17.1 Estrogen receptor negative status [ER-]; C79.81 Secondary malignant neoplasm of breast; M51.36 Other intervertebral disc degeneration, lumbar region; M81.0 Age-related osteoporosis without current pathological fracture; M85.88 Other specified disorders of bone density and structure, other site; N28.89 Other specified disorders of kidney and ureter; Z79.818 Long term (current) use of other agents affecting estrogen receptors and estrogen levels; Z79.899 Other long term (current) drug therapy; Z92.3 Personal history of irradiation; Z87.891 Personal history of nicotine dependence
CPT/HCPCS: 96372; 99214; J0897

== ENCOUNTER → 2023-08-24 11:06 | Outpatient (BNVA) | payer MEDICARE, OTHER, SELFPAY | PROVIDERS: PCP Family Medicine; Visit Provider Nurse Practitioner Family | DX: R05.9 Cough, unspecified (principal); J18.9 Pneumonia, unspecified organism; I50.9 Heart failure, unspecified | CPT/HCPCS: 71046; 87486; 87581; 87633 ==

== ENCOUNTER 2023-08-27 13:41 | Inpatient (IN) | payer MEDICARE, OTHER, SELFPAY ==
[2023-08-27] VITALS (15 sets, daily range): BP systolic 126–169; BP diastolic 77–106; PULSE 10–116; RESP 14–28; TEMP 36.1–36.9; O2SAT 91–99; BMI 33.6; BMI 37.8
--- NOTE | 2023-08-27 13:49 | XRR_ITS ---
PROCEDURE INFORMATION: Exam: XR Chest Exam date and time: 08/27/2023 1:45 PM Age: 82 years old Clinical indication: Shortness of breath; Patient HX: Respiratory distress; SOB; HX breast CA TECHNIQUE: Imaging protocol: Radiologic exam of the chest. Views: 1 view. COMPARISON: CR XR chest 2V* [id number] 08/24/2023 11:12 AM FINDINGS: Lungs: Mild vascular and interstitial prominence. Pleural spaces: Increasing right sided pleural effusion some of which appears to be loculated in a fissure. Heart/Mediastinum: Right heart border is obscured. Bones/joints: There is a sclerotic lower thoracic vertebral body. Old posttraumatic deformity of the right humeral head. XR/XR chest 1V portable [id number] IMPRESSION: 1. Increasing right sided pleural effusion some of which appears to be loculated in a fissure. 2. Mild vascular and interstitial prominence.
--- NOTE | 2023-08-27 13:49 | ECG_ITS ---
[facility] Test Date: 2023-08-27 Pat Name: Kelley Quezada Department: Room: Gender: Female Tafe Lecturer: : 1940 Requested By: Theodore Cade Order Number: [id number] Yosef MD: Mian Rose M.D. Measurements Intervals [place] Rate: 118 P: 0 MD: 0 QRS: 19 QRSD: 85 T: 36 QT: 282 QTc: 396 Interpretive Statements ATRIAL FIBRILLATION WITH RAPID VENTRICULAR RESPONSE Compared to ECG 06/06/2023 08:31:13 No significant changes Electronically Signed On 08-27-2023 16:09:58 [employer] by Mian Rose M.D. [email or web address]
--- NOTE | 2023-08-27 14:05 | W.ED.SOB ---
Documented by User: MANUELITO Appiah 08/27/23 15:20 HPI - SOB/Dyspnea General: Chief Complaint: Shortness of Breath/Dyspnea Stated Complaint: sob Time Seen by Provider: 08/27/23 13:46 History of Present Illness: HPI Narrative: Patient presents today for complaints of not feeling well for going on a week. She has been using the oxygen for 4-5 days now. Oxygen levels had dropped as low 81%. She applied 3L of O2 via NC. Oxygen levels improved back up to 98%. She has not had chest pain. She has been coughing quite a bit at the onset. Now she has a sore throat and just general joint pain. Her cough was productive this morning. She was recently hospitalized in May 2023 with hypoxia and pneumonia. Given Rocephin and dexamethasone in the office on Sunday and started on cefdinir and prednisone. Patient presents to the ER for worsening symptoms. Patient is tachypneic and appears anxious. She denies chest pain She reports body aches Associated symptoms: Reports chest congestion and nausea; Deny abdominal pain, chest pain, fever(s), palpitations, syncope or vomiting Review of Systems Const: Reports: body aches; Denies: fever(s) or chills Eyes: Denies: blurry vision or eye discomfort ENMT: Reports: throat pain and post nasal drip; Denies: ear or mastoid pain, nasal discharge, nasal congestion or sinus pain Card: Denies: chest pain, palpitations or syncope Resp: Reports: productive cough, non-productive cough and chest congestion; Denies: dyspnea, wheezing or pain on inspiration GI: Reports: nausea; Denies: abdominal pain, vomiting or diarrhea Skin/Breast: Denies: rash, pruritus or sores [facility] ED PFSH: Medical History Osteoporosis Gout History of right shoulder fracture Breast cancer, left 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 Nu Hubbard [facility] Hx of foot surgery bilateral History of lumpectomy of right breast Hx of tubal ligation Hx of total thyroidectomy Hx of appendectomy Hx of left breast biopsy Family History Sister Cancer Breast Other Family history non-contributory Suicide Denies family history of Diabetes CAD (coronary artery disease) Clotting disorder Dementia Hyperlipidemia Psychiatric illness Chronic kidney disease (CKD) Anesthesia complication Bleeding disorder Lung disease Hypertension Stroke Social History Smoking and tobacco/nicotine status: former use of tobacco/nicotine Quit status (tobacco/nicotine): has quit using Year quit tobacco: in 20's Former quit date comment: Not sure of quit date Second hand smoke exposure: No Alcohol intake: never Substance/Drug Use: never Caregiver/support person: Yes Lives independently: Yes Household members: spouse Marital status: Current occupational status: retired Current gender identity: Female Special temi needs: No Agree to transfusion: Yes Physical Exam Const: COMMON NORMALS: no acute distress and alert GENERAL APPEARANCE: cooperative and ill appearing HENMT: COMMON NORMALS: external ears normal, EAC's normal, TM's normal bilaterally, Normal external nose present, Normal nasal mucous membranes and turbinates present, moist oral mucous membranes and oropharynx normal NOSE: Normal external nose present and Normal nasal mucous membranes and turbinates present EXTERNAL EAR: Yes external ears normal EXTERNAL AUDITORY CANAL: EAC's normal TYMPANIC MEMBRANE: TM's normal bilaterally Eye: COMMON NORMALS: Equal, round and reactive pupils present PUPIL: Yes Equal, round and reactive pupils present Resp: EFFORT & INSPECTION: No able to speak in complete sentences, Yes symmetric chest movement, Yes tachypneic, Yes respiratory distress and No labored AUSCULTATION: crackles and diminished lung sounds Cardio: COMMON NORMALS: S1 normal heart sound present, S2 normal heart sound present and Peripheral pulses 2+ throughout; negative for No clicks present (Cardio) and negative for No murmurs present (Cardio) RATE: tachycardic RHYTHM: abnormal rhythm irregularly irregular HEART SOUNDS: S1 normal heart sound present and S2 normal heart sound present PERIPHERAL PULSES: Peripheral pulses 2+ throughout GI: COMMON NORMALS: Normal to inspection, nondistended, normoactive bowel sounds present and Soft to palpation AUSCULTATION: Yes normoactive bowel sounds PALPATION: Yes Soft to palpation Neuro: SENSORIUM/ORIENTATION: Yes alert Course Vital Signs: Vital signs: Vital Signs Temperature 98.4 F 08/27/23 13:50 Pulse Rate 10 L 08/27/23 15:47 Respiratory Rate 28 H 08/27/23 14:14 Blood Pressure 167/100 08/27/23 14:14 Pulse Oximetry 95 08/27/23 15:47 Oxygen Delivery Me thod Nasal Cannula 08/27/23 14:14 Oxygen Flow Rate 3 08/27/23 14:14 Fraction of Inspir ed Oxygen 36 08/27/23 15:47 MDM - SOB/Dyspnea Medical Decision Making Patient presents to the emergency department with increased work of breathing, short of breath and prior diagnosis of pneumonia. Was treated with Rocephin on Sunday and started on cefdinir at home Sunday. Differential diagnosis atrial flutter, CHF, AMI, pneumonia, sepsis In the emergency department I obtained an EKG at 1351 that reveals atrial fibrillation RVR with a rate of 118. QTc 352. There is no ectopy, ST elevation or abnormal T wave inversion. Chest x-ray is worsening and reveals increased right-sided pleural effusion Laboratory studies included CBC, CMP, troponin series, BNP, lactic, procalcitonin and blood cultures. ABGs obtained revealed pH of 7.29, pCO2 73 and pO2 of 84 on 3 L. Her base is a 6.1. Vancomycin ordered and to be given after blood cultures although patient is already been on antibiotics for over a week Transition care to Dr. Koehler Lab Data 08/27/23 14:25 08/27/23 14:25 Labs/Radiology: Radiology Impressions Chest X-Ray 08/27/23 13:49 IMPRESSION: 1. Increasing right sided pleural effusion some of which appears to be loculated in a fissure. 2. Mild vascular and interstitial prominence. Laboratory Results WBC 11.00 10^3/uL (3.29-11.43) 08/27/23 14:25 RBC 4.47 10^6/uL (3.85-5.65) 08/27/23 14:25 Hgb 12.80 g/dL (11.27-16.99) 08/27/23 14:25 Hct 43.5 % (36-47) 08/27/23 14:25 MCV 97.3 fl (85-98) 08/27/23 14:25 MCH 28.6 pg (27-33) 08/27/23 14:25 MCHC 29.4 g/dL (30-55) L 08/27/23 14:25 RDW 14.0 % (12.1-15.1) 08/27/23 14:25 Plt Count 288 10^3/cmm (157-399) 08/27/23 14:25 MPV 9.2 fL (7.4-10.4) 08/27/23 14:25 Neut % (Auto) 90.3 % 08/27/23 14:25 Lymph % (Auto) 4.6 % 08/27/23 14:25 Bond % (Auto) 4.5 % 08/27/23 14:25 Eos % (Auto) 0.0 % 08/27/23 14:25 Baso % (Auto) 0.1 % 08/27/23 14:25 Neut # (Auto) 9.94 10^3/uL (1.8-7.7) H 08/27/23 14:25 Lymph # (Auto) 0.5 10^3/uL (0.8-4.8) L 08/27/23 14:25 Bond # (Auto) 0.5 10^3/uL (0.2-0.9) 08/27/23 14:25 Eos # (Auto) 0.0 10^3/uL (0.0-0.8) 08/27/23 14:25 Baso # (Auto) 0.0 10^3/uL (0.0-0.1) 08/27/23 14:25 Nucleated RBC % (auto) 0 % 08/27/23 14:25 Nucleated RBCs # 0.0 /100WBC 08/27/23 14:25 PT 13.20 SECONDS (12.1-14.9) 08/27/23 14:25 INR 0.98 (0.8-1.2) 08/27/23 14:25 Specimen Type Arterial 08/27/23 16:47 Sample Site Brachial, right 08/27/23 16:47 ABG pH 7.31 (7.35-7.45) L 08/27/23 16:47 ABG pCO2 71.7 mmHg (35-45) H* 08/27/23 16:47 ABG pO2 93.1 mmHg (80.0-100.0) 08/27/23 16:47 ABG PO2/FiO2 Ratio 0 08/27/23 16:47 ABG HCO3 35.8 mmol/L (22-26) H 08/27/23 16:47 ABG O2 Saturation 98.5 08/27/23 16:47 ABG Base Excess 7.2 mmol/L (-2.0-2.0) H 08/27/23 16:47 Mikhail Test Pos 08/27/23 16:47 A-a O2 Gradient 10.4 mmHg (5-10) H 08/27/23 16:47 Hematocrit 37.3 % (37-47) 08/27/23 16:47 Hgb O2 Saturation 96.4 % (95-100) 08/27/23 16:47 Carboxyhemoglobin 1.7 %THgb (0.4-20.1) 08/27/23 16:47 Methemoglobin 0.4 % (0.4-1.5) 08/27/23 16:47 Total Hemoglobin 12.2 g/dL (12-16) 08/27/23 16:47 Sodium 137.0 mmol/L (131-143) 08/27/23 16:47 Potassium 4.5 mmol/L (3.5-5.0) 08/27/23 16:47 Glucose 119.0 mg/dL (70-115) H 08/27/23 16:47 Ionized Calcium 1.1 mmol/L (1.1-1.4) 08/27/23 16:47 O2 Delivery Device Bipap 08/27/23 16:47 O2 Liters/Min 3.0 % 08/27/23 14:15 FiO2 36.0 % 08/27/23 16:47 PEEP 8.0 cmH20 08/27/23 16:47 Rack Puncher ID Monro 08/27/23 16:47 Sodium 135 mmol/L (136-145) L 08/27/23 14:25 Potassium 4.3 mmol/L (3.5-5.1) 08/27/23 14:25 Chloride 94 mmol/L (98-107) L 08/27/23 14:25 Carbon Dioxide 34 mmol/L (22-29) H 08/27/23 14:25 Anion Gap 11.3 (5-19) 08/27/23 14:25 BUN 33 mg/dL (8-23) H 08/27/23 14:25 Creatinine 1.1 mg/dL (0.5-0.9) H 08/27/23 14:25 GFR Calculation Not Reportable 08/27/23 14:25 Glucose 139 mg/dL (65-115) H 08/27/23 14:25 Calculated Osmolality 290 mOsm/kg (285-295) 08/27/23 14:25 Lactic Acid 1.5 mmol/L (0.5-2.2) 08/27/23 14:25 Calcium 8.5 mg/dL (8.5-10.5) 08/27/23 14:25 Total Bilirubin 0.4 mg/dL (0.15-1.2) 08/27/23 14:25 AST 29 U/L (0-32) 08/27/23 14:25 ALT 28 U/L (0-33) 08/27/23 14:25 Alkaline Phosphatase 84 U/L (35-105) 08/27/23 14:25 Troponin T Baseline 27 ng/L (0-10) H 08/27/23 14:25 NT-Pro-B Natriuret Pep 27878 pg/mL (0-450) H 08/27/23 14:25 Total Protein 6.7 g/dL (6.6-8.7) 08/27/23 14:25 Albumin 3.9 g/dL (3.5-5.2) 08/27/23 14:25 Globulin 2.8 g/dL (1.3-4.6) 08/27/23 14:25 Procalcitonin 0.05 ng/mL (0-0.5) 08/27/23 14:25 Influenza Type A Ag negative (Negative) 08/27/23 14:45 Influenza Type B Ag negative (Negative) 08/27/23 14:45 Discharge Plan Discharge Patient Disposition: Admitted As Inpatient Clinical Impression: Pneumonia, Congestive heart failure, New onset a-fib, Acute hypercapnic respiratory failure Condition: Stable Prescriptions: No Action ascorbic acid (vitamin C) 1,000 mg tablet 1,000 mg PO DAILY ondansetron HCl 4 mg tablet 4 mg PO Q6H PRN (Reason: nausea and vomiting) Qty: 30 0RF cefdinir 300 mg capsule 300 mg PO BID 10 Days Qty: 20 0RF prednisone 20 mg tablet 20 mg PO BID 5 Days Qty: 10 0RF calcium carbonate [Calcium 600] 600 mg calcium (1,500 mg) tablet 600 mg PO DAILY albuterol sulfate 2.5 mg /3 mL (0.083 %) solution for nebulization 2.5 mg inhalation QID PRN (Reason: shortness of breath or wheezing) Qty: 90 0RF metoprolol tartrate 50 mg tablet 75 mg PO BID lisinopril 40 mg tablet 40 mg PO BID clonidine HCl 0.1 mg tablet 0.1 mg PO BID chlordiazepoxide HCl 10 mg capsule 10 mg PO BEDTIME hydrochlorothiazide 25 mg tablet 25 mg PO QAM omeprazole 40 mg capsule,delayed release(DR/EC) 40 mg PO DAILY levothyroxine 125 mcg tablet 125 mcg PO QAM lovastatin 20 mg tablet 40 mg PO DAILY letrozole 2.5 mg tablet 2.5 mg PO DAILY Referrals: Jo Ledezma MD [Primary Care Provider] - Coding Level of Care Code ED Patient Registration Manager for Chg Fwd Documented by User: Raffi Koehler DO 08/27/23 17:11 HPI - SOB/Dyspnea General: Chief Complaint: Shortness of Breath/Dyspnea Stated Complaint: sob Time Seen by Provider: 08/27/23 13:46 PFSH ED PFSH: Medical History Osteoporosis Gout History of right shoulder fracture Breast cancer, left 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 Nu Hubbard [facility] Hx of foot surgery bilateral History of lumpectomy of right breast Hx of tubal ligation Hx of total thyroidectomy Hx of appendectomy Hx of left breast biopsy Family History Sister Cancer Breast Other Family history non-contributory Suicide Denies family history of Diabetes CAD (coronary artery disease) Clotting disorder Dementia Hyperlipidemia Psychiatric illness Chronic kidney disease (CKD) Anesthesia complication Bleeding disorder Lung disease Hypertension Stroke Social History Smoking and tobacco/nicotine status: former use of tobacco/nicotine Quit status (tobacco/nicotine): has quit using Year quit tobacco: in 20's Former quit date comment: Not sure of quit date Second hand smoke exposure: No Alcohol intake: never Substance/Drug Use: never Caregiver/support person: Yes Lives independently: Yes Household members: spouse Marital status: Current occupational status: retired Current gender identity: Female Special temi needs: No Agree to transfusion: Yes Course Vital Signs: Vital signs: Vital Signs Temperature 98.4 F 08/27/23 13:50 Pulse Rate 10 L 08/27/23 15:47 Respiratory Rate 28 H 08/27/23 14:14 Blood Pressure 167/100 08/27/23 14:14 Pulse Oximetry 95 08/27/23 15:47 Oxygen Delivery Me thod Nasal Cannula 08/27/23 14:14 Oxygen Flow Rate 3 08/27/23 14:14 Fraction of Inspir ed Oxygen 36 08/27/23 15:47 MDM - SOB/Dyspnea Medical Decision Making Patient presents to the emergency department with increased work of breathing, short of breath and prior diagnosis of pneumonia. Was treated with Rocephin on Sunday and started on cefdinir at home Sunday. Differential diagnosis atrial flutter, CHF, AMI, pneumonia, sepsis In the emergency department I obtained an EKG at 1351 that reveals atrial fibrillation RVR with a rate of 118. QTc 352. There is no ectopy, ST elevation or abnormal T wave inversion. Chest x-ray is worsening and reveals increased right-sided pleural effusion Laboratory studies included CBC, CMP, troponin series, BNP, lactic, procalcitonin and blood cultures. ABGs obtained revealed pH of 7.29, pCO2 73 and pO2 of 84 on 3 L. Her base is a 6.1. Vancomycin ordered and to be given after blood cultures although patient is already been on antibiotics for over a week Transition care to Dr. Koehler Care assumed from midlevel. Patient is presenting with worsening pneumonia as well as congestive heart failure new onset A-fib with a rate well-controlled at the time I seen her, earlier she had a rate up into the 1 teens. She denies any chest pain at this time cultures have been done she was hypercapnic although she has improved with application of BiPAP. Will admit discussed with hospitalist orders written Medical Records I reviewed the patient's medical records. Lab Data I reviewed the patient's lab results. 08/27/23 14:25 08/27/23 14:25 Labs/Radiology: Radiology Impressions Chest X-Ray 08/27/23 13:49 IMPRESSION: 1. Increasing right sided pleural effusion some of which appears to be loculated in a fissure. 2. Mild vascular and interstitial prominence. Laboratory Results WBC 11.00 10^3/uL (3.29-11.43) 08/27/23 14:25 RBC 4.47 10^6/uL (3.85-5.65) 08/27/23 14:25 Hgb 12.80 g/dL (11.27-16.99) 08/27/23 14:25 Hct 43.5 % (36-47) 08/27/23 14:25 MCV 97.3 fl (85-98) 08/27/23 14:25 MCH 28.6 pg (27-33) 08/27/23 14:25 MCHC 29.4 g/dL (30-55) L 08/27/23 14:25 RDW 14.0 % (12.1-15.1) 08/27/23 14:25 Plt Count 288 10^3/cmm (157-399) 08/27/23 14:25 MPV 9.2 fL (7.4-10.4) 08/27/23 14:25 Neut % (Auto) 90.3 % 08/27/23 14:25 Lymph % (Auto) 4.6 % 08/27/23 14:25 Bond % (Auto) 4.5 % 08/27/23 14:25 Eos % (Auto) 0.0 % 08/27/23 14:25 Baso % (Auto) 0.1 % 08/27/23 14:25 Neut # (Auto) 9.94 10^3/uL (1.8-7.7) H 08/27/23 14:25 Lymph # (Auto) 0.5 10^3/uL (0.8-4.8) L 08/27/23 14:25 Bond # (Auto) 0.5 10^3/uL (0.2-0.9) 08/27/23 14:25 Eos # (Auto) 0.0 10^3/uL (0.0-0.8) 08/27/23 14:25 Baso # (Auto) 0.0 10^3/uL (0.0-0.1) 08/27/23 14:25 Nucleated RBC % (auto) 0 % 08/27/23 14:25 Nucleated RBCs # 0.0 /100WBC 08/27/23 14:25 PT 13.20 SECONDS (12.1-14.9) 08/27/23 14:25 INR 0.98 (0.8-1.2) 08/27/23 14:25 Specimen Type Arterial 08/27/23 16:47 Sample Site Brachial, right 08/27/23 16:47 ABG pH 7.31 (7.35-7.45) L 08/27/23 16:47 ABG pCO2 71.7 mmHg (35-45) H* 08/27/23 16:47 ABG pO2 93.1 mmHg (80.0-100.0) 08/27/23 16:47 ABG PO2/FiO2 Ratio 0 08/27/23 16:47 ABG HCO3 35.8 mmol/L (22-26) H 08/27/23 16:47 ABG O2 Saturation 98.5 08/27/23 16:47 ABG Base Excess 7.2 mmol/L (-2.0-2.0) H 08/27/23 16:47 Mikhail Test Pos 08/27/23 16:47 A-a O2 Gradient 10.4 mmHg (5-10) H 08/27/23 16:47 Hematocrit 37.3 % (37-47) 08/27/23 16:47 Hgb O2 Saturation 96.4 % (95-100) 08/27/23 16:47 Carboxyhemoglobin 1.7 %THgb (0.4-20.1) 08/27/23 16:47 Methemoglobin 0.4 % (0.4-1.5) 08/27/23 16:47 Total Hemoglobin 12.2 g/dL (12-16) 08/27/23 16:47 Sodium 137.0 mmol/L (131-143) 08/27/23 16:47 Potassium 4.5 mmol/L (3.5-5.0) 08/27/23 16:47 Glucose 119.0 mg/dL (70-115) H 08/27/23 16:47 Ionized Calcium 1.1 mmol/L (1.1-1.4) 08/27/23 16:47 O2 Delivery Device Bipap 08/27/23 16:47 O2 Liters/Min 3.0 % 08/27/23 14:15 FiO2 36.0 % 08/27/23 16:47 PEEP 8.0 cmH20 08/27/23 16:47 Rack Puncher ID Monro 08/27/23 16:47 Sodium 135 mmol/L (136-145) L 08/27/23 14:25 Potassium 4.3 mmol/L (3.5-5.1) 08/27/23 14:25 Chloride 94 mmol/L (98-107) L 08/27/23 14:25 Carbon Dioxide 34 mmol/L (22-29) H 08/27/23 14:25 Anion Gap 11.3 (5-19) 08/27/23 14:25 BUN 33 mg/dL (8-23) H 08/27/23 14:25 Creatinine 1.1 mg/dL (0.5-0.9) H 08/27/23 14:25 GFR Calculation Not Reportable 08/27/23 14:25 Glucose 139 mg/dL (65-115) H 08/27/23 14:25 Calculated Osmolality 290 mOsm/kg (285-295) 08/27/23 14:25 Lactic Acid 1.5 mmol/L (0.5-2.2) 08/27/23 14:25 Calcium 8.5 mg/dL (8.5-10.5) 08/27/23 14:25 Total Bilirubin 0.4 mg/dL (0.15-1.2) 08/27/23 14:25 AST 29 U/L (0-32) 08/27/23 14:25 ALT 28 U/L (0-33) 08/27/23 14:25 Alkaline Phosphatase 84 U/L (35-105) 08/27/23 14:25 Troponin T Baseline 27 ng/L (0-10) H 08/27/23 14:25 NT-Pro-B Natriuret Pep 54186 pg/mL (0-450) H 08/27/23 14:25 Total Protein 6.7 g/dL (6.6-8.7) 08/27/23 14:25 Albumin 3.9 g/dL (3.5-5.2) 08/27/23 14:25 Globulin 2.8 g/dL (1.3-4.6) 08/27/23 14:25 Procalcitonin 0.05 ng/mL (0-0.5) 08/27/23 14:25 Influenza Type A Ag negative (Negative) 08/27/23 14:45 Influenza Type B Ag negative (Negative) 08/27/23 14:45 All radiology interpretation(s) finalized by discharge Discharge Plan Discharge Patient Disposition: Admitted As Inpatient Clinical Impression: Pneumonia, Congestive heart failure, New onset a-fib, Acute hypercapnic respiratory failure Condition: Stable Prescriptions: No Action ascorbic acid (vitamin C) 1,000 mg tablet 1,000 mg PO DAILY ondansetron HCl 4 mg tablet 4 mg PO Q6H PRN (Reason: nausea and vomiting) Qty: 30 0RF cefdinir 300 mg capsule 300 mg PO BID 10 Days Qty: 20 0RF prednisone 20 mg tablet 20 mg PO BID 5 Days Qty: 10 0RF calcium carbonate [Calcium 600] 600 mg calcium (1,500 mg) tablet 600 mg PO DAILY albuterol sulfate 2.5 mg /3 mL (0.083 %) solution for nebulization 2.5 mg inhalation QID PRN (Reason: shortness of breath or wheezing) Qty: 90 0RF metoprolol tartrate 50 mg tablet 75 mg PO BID lisinopril 40 mg tablet 40 mg PO BID clonidine HCl 0.1 mg tablet 0.1 mg PO BID chlordiazepoxide HCl 10 mg capsule 10 mg PO BEDTIME hydrochlorothiazide 25 mg tablet 25 mg PO QAM omeprazole 40 mg capsule,delayed release(DR/EC) 40 mg PO DAILY levothyroxine 125 mcg tablet 125 mcg PO QAM lovastatin 20 mg tablet 40 mg PO DAILY letrozole 2.5 mg tablet 2.5 mg PO DAILY Referrals: Jo Ledezma MD [Primary Care Provider] - Coding Level of Care Code ED Patient Registration Manager for Roland Arnett
[2023-08-27 14:24] LABS: ABG PH Result 7.29 (7.35-7.45); Alveolar-Arterial Oxygen Gradi 7.6 mmHg (5-10); Arterial Blood Gas Hematocrit 39.8 % (37-47); Base Excess ABG 6.1 mmol/L (-2.0-2.0); Blood Gas Operator Identificat glc; Blood Gas Sample Site Brachial, left; Blood Gas Sample Type Arterial; Carboxyhemoglobin 1.7 %THgb (0.4-20.1); HCO3 ABG 35.1 mmol/L (22-26); HGB O2 Sat 95.2 % (95-100); Ionized Calcium Level - ABG 1.1 mmol/L (1.1-1.4); Methemoglobin 0.5 % (0.4-1.5); Oxygen Device NC; Oxygen Saturation ABG 97.4; PO2 FiO2 Ratio Arterial Blood 0; Potassium Level - ABG 4.3 mmol/L (3.5-5.0)
[2023-08-27 14:27] LABS: ABG PCO2 73.1 mmHg (35-45)
[2023-08-27 14:32] LABS: Basophils % 0.1 %; Hematocrit 43.5 % (36-47); Lymphocytes # 0.5 10^3/uL (0.8-4.8); Lymphocytes % 4.6 %; Mean Corpuscular HGB Conc 29.4 g/dL (30-55); Mean Corpuscular Hemoglobin 28.6 pg (27-33); Mean Corpuscular Volume 97.3 fl (85-98); Mean Platelet Volume 9.2 fL (7.4-10.4); Monocytes # 0.5 10^3/uL (0.2-0.9); Monocytes % 4.5 %; Neutrophils # 9.94 10^3/uL (1.8-7.7); Neutrophils % 90.3 %; Nucleated Red Blood Cells % 0 %; Platelet Count 288 10^3/cmm (157-399); Red Blood Count 4.47 10^6/uL (3.85-5.65)
[2023-08-27 14:45] LABS: INR 0.98 (0.8-1.2)
[2023-08-27 14:53] LABS: Lactic Sepsis W/Reflex 1.5 mmol/L (0.5-2.2)
[2023-08-27 14:55] LABS: Troponin(5th) Baseline 27 ng/L (0-10)
[2023-08-27 15:05] LABS: NT Pro B Type Natriuretic Pept 12171 pg/mL (0-450); Procalcitonin 0.05 ng/mL (0-0.5)
[2023-08-27 15:16] LABS: Alanine Aminotransferase 28 U/L (0-33); Albumin Level 3.9 g/dL (3.5-5.2); Alkaline Phosphatase 84 U/L (35-105); Anion Gap 11.3 (5-19); Aspartate Amino Transferase 29 U/L (0-32); Blood Urea Nitrogen 33 mg/dL (8-23); Calcium 8.5 mg/dL (8.5-10.5); Carbon Dioxide 34 mmol/L (22-29); Chloride 94 mmol/L (98-107); Globulin 2.8 g/dL (1.3-4.6); Glucose 139 mg/dL (65-115); Osmolality Calculated 290 mOsm/kg (285-295); Potassium 4.3 mmol/L (3.5-5.1); Sodium 135 mmol/L (136-145); Total Bilirubin 0.4 mg/dL (0.15-1.2); Total Protein 6.7 g/dL (6.6-8.7)
[2023-08-27] MEDS: meropenem 1,000 MG in sodium chloride 0.9% (plus) 50 ML 100 MG IV (15:20)
--- NOTE | 2023-08-27 15:41 | CTR_ITS ---
PROCEDURE INFORMATION: Exam: CTA Chest With Contrast Exam date and time: 08/27/2023 6:01 PM Age: 82 years old Clinical indication: Dyspnea and shortness of breath; Prior surgery; Surgery date: 6+ months; Surgery type: Thyroidectomy. Left lumpectomy; Patient HX: SOB and dyspnea. History of breast cancer. ; Additional info: Dyspnea/beast CA TECHNIQUE: Imaging protocol: Computed tomographic angiography of the chest with contrast. Exam focused on the arteries. 3D rendering (Not supervised by radiologist): MIP and/or 3D reconstructed images were created by the technologist. Radiation optimization: All CT scans at this facility use at least one of these dose optimization techniques: automated exposure control; mA and/or kV adjustment per patient size (includes targeted exams where dose is matched to clinical indication); or iterative reconstruction. Contrast material: OMNI 350; Contrast volume: 67 ml; Contrast route: INTRAVENOUS (IV); REPORTING DATA: Count of CT and Cardiac NM exams in prior 12 months: This patient has received 3 known CTs and 0 known cardiac nuclear medicine studies in the 12 months prior to the current study. COMPARISON: CT angio chest PE protcl [id number] 06/04/2023 6:56 PM RADIATION DOSE METRICS: Total DLP (mGy-cm): 473.11 FINDINGS: Pulmonary arteries: No evidence of pulmonary thromboembolism. There is mild dilation of the pulmonary trunk to 3.0 cm which can be seen with pulmonary arterial hypertension. Aorta: No evidence of aneurysmal dilatation or dissection of the thoracic aorta. Thyroid: Grossly unremarkable. Lungs: Moderate right-sided and trace-small left-sided pleural effusions. There is right middle lobe atelectasis. There is associated passive atelectasis of the right lower lobe. Mosaic attenuation is noted in both lungs, which may be related to the expiratory phase of respiration. No focal consolidation or pneumothorax. Pleural spaces: No evidence of pleural effusion or significant pleural thickening. Heart: No cardiomegaly or pericardial effusion. Heart RV/LV ratio: No evidence of increased right sided heart pressures. Coronary arteries: There are incidental coronary artery calcifications. Lymph nodes: Multiple calcified mediastinal and hilar nodes compatible with sequela of a remote granulomatous process. Diaphragm: No evidence of diaphragmatic defect. 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 No evidence of acute fracture . Soft tissues: No evidence of fluid collection, hematoma or mass-like lesion in the superficial soft tissues. CT/CT angio chest PE protcl [id number] IMPRESSION: 1. Moderate right-sided and trace-small left-sided pleural effusions. 2. Right middle lobe atelectasis. Pulmonary clinic follow-up is recommended. Consider follow-up outpatient bronchoscopy. 3. No evidence of PE or acute aortic abnormality. 4. Mild dilation of the pulmonary trunk to 3.0 cm which can be seen with pulmonary arterial hypertension.
--- NOTE | 2023-08-27 15:46 | PC.NURSE ---
vancomycin delayed d/t administration of Merrem
--- NOTE | 2023-08-27 15:49 | ECG_ITS ---
[facility] Test Date: 2023-08-27 Pat Name: Kelley Quezada Department: Room: Gender: Female Telephone Services Sales Representative: : 1940 Requested By: Theodore Cade Order Number: [id number] Yosef MD: Mian Rose M.D. Measurements Intervals [place] Rate: 100 P: 0 VA: 0 QRS: 16 QRSD: 89 T: 30 QT: 331 QTc: 429 Interpretive Statements ATRIAL FIBRILLATION WITH RAPID VENTRICULAR RESPONSE Compared to ECG 08/27/2023 13:51:26 No significant changes Electronically Signed On 08-27-2023 16:10:22 MOP HANDLE ASSEMBLER by Mian Rose M.D. [id number]
[2023-08-27] MEDS: vancomycin 1,500 MG/300 ML PIGGYBACK 200 MG IV ×2 (16:11→20:50)
[2023-08-27 16:52] LABS: Influenza A by IFA negative (Negative); Influenza B by IFA negative (Negative)
[2023-08-27 16:59] LABS: ABG PH Result 7.31 (7.35-7.45); Alveolar-Arterial Oxygen Gradi 10.4 mmHg (5-10); Arterial Blood Gas Hematocrit 37.3 % (37-47); Base Excess ABG 7.2 mmol/L (-2.0-2.0); Blood Gas Allen Test Pos; Blood Gas Operator Identificat MONRO; Blood Gas Sample Site Brachial, right; Blood Gas Sample Type Arterial; Carboxyhemoglobin 1.7 %THgb (0.4-20.1); HCO3 ABG 35.8 mmol/L (22-26); HGB O2 Sat 96.4 % (95-100); Ionized Calcium Level - ABG 1.1 mmol/L (1.1-1.4); Methemoglobin 0.4 % (0.4-1.5); Oxygen Device BIPAP; Oxygen Saturation ABG 98.5; PO2 ABG 93.1 mmHg (80.0-100.0); PO2 FiO2 Ratio Arterial Blood 0; Potassium Level - ABG 4.5 mmol/L (3.5-5.0); Total Hemoglobin 12.2 g/dL (12-16)
[2023-08-27 17:00] LABS: ABG PCO2 71.7 mmHg (35-45)
--- NOTE | 2023-08-27 17:12 | PC.NURSE ---
pt placed on biPAP d/t ABG results, see ABG results.
[2023-08-27 17:14] LABS: Troponin 5 2HR 30.21 ng/L (0-10); Troponin 5 2HR Delta 3.21 ABS# (0-10)
--- NOTE | 2023-08-27 17:49 | P.HP_ITS ---
Providers/Chief Complaint 2 Admitting Physician: Dilan Rivero MD Primary Care Provider: Jo Ledezma MD Chief Complaint: sob History of Present Illness Kelley Quezada is a 82 year old female with a past medical history of left breast cancer, hypertension, hyperlipidemia, who presents to [facility] due to shortness of breath, patient currently is on BiPAP, she is resting comfortably, alert awake, following all commands no respiratory distress distracted no nasal flaring no intercostal retractions he is able to speak full sentences without feeling short of breath, she is found to have hypercarbic hypoxic respiratory failure placed on BiPAP, found to have a right large pleural effusion she is receiving antibiotics, she tells me that recently she has been feeling increasingly short of breath, nonproductive cough, she has been feeling well for the last week or so she saw her primary care on the , she has a new oxygen requirements, she is now using 3 L, she normally does not use oxygen, no chest pain, she has been coughing, has a sore throat, she was also found to have new onset A-fib with RVR, currently heart rates are well-controlled, denies a prior history of atrial fibrillation, currently heart rates in the low 100 Review of Systems 2 Const: Reports: body aches, fatigue and malaise; Denies: fever(s) or chills Eyes: Denies: change in vision Card: Reports: palpitations and swelling of feet/ankles; Denies: chest pain Resp: Reports: dyspnea and non-productive cough GI: Denies: abdominal pain or nausea : Denies: flank pain Musc: Denies: neck pain or back pain Skin/Breast: Denies: rash Neuro: Denies: headache(s), numbness in extremities or weakness in extremities Endo: Denies: polyuria Medications/Allergies Home Medications Medication Instructions Recorded Confirmed Last Taken Type ascorbic acid (vitamin C) 1,000 mg 1,000 mg PO DAILY 09/09/19 08/27/23 06/14/22 History tablet calcium carbonate 600 mg calcium 600 mg PO DAILY 08/09/22 08/27/23 Unknown History (1,500 mg) tablet (Calcium) albuterol sulfate 2.5 mg/3 mL 2.5 mg (3 mL) inhalation QID PRN 06/06/23 08/27/23 Unknown Rx (0.083 %) solution for nebulization shortness of breath or wheezing #90 mL cefdinir 300 mg capsule 300 mg PO BID 10 days #20 caps 08/24/23 08/27/23 08/27/23 Rx ondansetron HCl 4 mg tablet 4 mg PO Q6H PRN nausea and 08/24/23 08/27/23 Unknown Rx vomiting #30 tabs prednisone 20 mg tablet 20 mg PO BID 5 days #10 tabs 08/24/23 08/27/23 08/27/23 Rx chlordiazepoxide HCl 10 mg capsule 10 mg PO BEDTIME 08/27/23 08/27/23 Unknown History clonidine HCl 0.1 mg tablet 0.1 mg PO BID 08/27/23 08/27/23 Unknown History hydrochlorothiazide 25 mg tablet 25 mg PO QAM 08/27/23 08/27/23 08/27/23 History letrozole 2.5 mg tablet 2.5 mg PO DAILY 08/27/23 08/27/23 Unknown History levothyroxine 125 mcg tablet 125 mcg PO QAM 08/27/23 08/27/23 08/27/23 History lisinopril 40 mg tablet 40 mg PO BID 08/27/23 08/27/23 08/27/23 History lovastatin 20 mg tablet 40 mg PO DAILY 08/27/23 08/27/23 Unknown History metoprolol tartrate 50 mg tablet 75 mg PO BID 08/27/23 08/27/23 Unknown History omeprazole 40 mg capsule,delayed 40 mg PO DAILY 08/27/23 08/27/23 Unknown History release Allergies Allergy/AdvReac Type Severity Reaction Status Date / Time adhesive Allergy Intermediate ALGY-Bliste Verified 08/27/23 13:54 r clarithromycin [From Biaxin] Allergy Intermediate thrush Verified 08/27/23 13:54 Penicillins Allergy Unknown Unknown Verified 08/27/23 13:54 PFSH Acute 2 PFSH: Medical History Osteoporosis Gout History of right shoulder fracture Breast cancer, left 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 Nu Hubbard [facility] Hx of foot surgery bilateral History of lumpectomy of right breast Hx of tubal ligation Hx of total thyroidectomy Hx of appendectomy Hx of left breast biopsy Family History Sister Cancer Breast Other Family history non-contributory Suicide Denies family history of Diabetes CAD (coronary artery disease) Clotting disorder Dementia Hyperlipidemia Psychiatric illness Chronic kidney disease (CKD) Anesthesia complication Bleeding disorder Lung disease Hypertension Stroke Social History Smoking and tobacco/nicotine status: former use of tobacco/nicotine Quit status (tobacco/nicotine): has quit using Year quit tobacco: in 20's Former quit date comment: Not sure of quit date Second hand smoke exposure: No Alcohol intake: never Substance/Drug Use: never Caregiver/support person: Yes Lives independently: Yes Household members: spouse Marital status: Current occupational status: retired Current gender identity: Female Special temi needs: No Agree to transfusion: Yes Vitals/I&O/Wt Last Vital Signs Temp 98.4 F 08/27/23 13:50 Pulse 101 H 08/27/23 17:21 Resp 19 H 08/27/23 17:12 BP 135/77 08/27/23 16:45 Pulse Ox 98 08/27/23 17:21 O2 Del Method BiPAP 08/27/23 17:12 O2 Flow Rate 3 08/27/23 14:14 FiO2 36 08/27/23 17:21 08/27/23 08/27/23 08/27/23 06:59 14:59 22:59 Intake Total 50 / 50 Balance 50 / 50 Weight last 48 hrs Weight 88.904 kg Physical Exam 2 Const: COMMON NORMALS: no acute distress and patient oriented x3 HENMT: COMMON NORMALS: normocephalic HEAD & SCALP: normocephalic Eye: COMMON NORMALS: Equal, round and reactive pupils present Neck/C-Spine: COMMON NORMALS: no JVD Lymph: LYMPHATIC: no lymphadenopathy noted Resp: COMMON NORMALS: normal respiratory effort, No retractions and No use of accessory muscles AUSCULTATION: wheezes OTHER: Decreased breath sounds right lung field Cardio: COMMON NORMALS: no JVD, S1 normal heart sound present and S2 normal heart sound present RATE: tachycardic RHYTHM: abnormal rhythm HEART SOUNDS: S1 normal heart sound present and S2 normal heart sound present GI: COMMON NORMALS: Normal to inspection, nondistended, normoactive bowel sounds present, Soft to palpation and non-tender : COMMON NORMALS: Yes no CVA tenderness Extremity: COMMON NORMALS: no calf tenderness NARRATIVE EXTREMITY EXAM: 1+ pitting edema Neuro: COMMON NORMALS: patient oriented x3, CN's II-XII intact bilaterally and moves all extremities Psych: COMMON NORMALS: mental status grossly normal Data 08/27/23 14:25 08/27/23 14:25 A&P Assessment and plan (1) Acute hypoxic on chronic hypercapnic respiratory failure: (2) Pneumonia: Qualifiers: Laterality: bilateral Lung location: unspecified part of lung P neumonia type: due to unspecified organism Qualified Code(s): J18.9 - Pneumonia, unspecified organism (3) Pleural effusion, right: (4) Atrial fibrillation with RVR: (5) Hypothyroidism: Qualifiers: Hypothyroidism type: unspecified Qualified Code(s): E03.9 - Hypothyroidism, unspecified (6) CKD (chronic kidney disease): (7) SOB (shortness of breath): (8) Breast cancer, left: (9) Systolic CHF: Plan Acute hypoxic hypercarbic respiratory failure ?etiology: ? Some degree of note has 1+ pitting edema, right pleural effusion, ? Large right pleural effusion, ? Cannot rule out underlying pneumonia ? Plan ? ER providers ordered CT angiogram of the chest, ? Continue BiPAP therapy ?monitor respiratory status closely ?continue DuoNeb -For now continue broad-spectrum antibiotic therapy, vancomycin, meropenem colitis ?1 dose Lasix ? Cardiac echocardiogram clinics -Has a large right pleural effusion, ultrasound thoracocentesis, has a history of left-sided breast cancer, will do CSF analysis, pathology, Right pleural effusion -Right pleural effusion thoracocentesis hopefully tomorrow, ? Pleural fluid analysis A-fib with RVR ? Currently heart rate well-controlled, ? Continue home metoprolol 75 twice daily ? Hold anticoagulant therapy given plans on thoracocentesis tomorrow, ? Will consider Eliquis based on clinical progress, NSTEMI ? No chest pain complaints, ? Serial EKGs, serial troponins, telemetry monitoring, Start Lovenox for DVT prophylaxis tomorrow, ? After thoracocentesis ?SCDs for DVT prophylaxis, full code Attestations 2 Medical Necessity Statement*: Patient requires hospitalization for acute hypoxic hypercarbic respiratory failure, pneumonia, right pleural effusion, systolic CHF, Diagnoses Acute hypoxic on chronic hypercapnic respiratory failure J96.01; J96.12 Pneumonia J18.9 Laterality: bilateral Lung location: unspecified part of lung Pneumonia type: due to unspecified organism Pleural effusion, right J90 Atrial fibrillation with RVR I48.91 Hypothyroidism, unspecified type E03.9 Hypothyroidism type: unspecified CKD (chronic kidney disease) N18.9 SOB (shortness of breath) R06.02 Breast cancer, left C50.912 Systolic CHF I50.20
--- NOTE | 2023-08-27 17:57 | PC.NURSE ---
report called to [facility] on Med-Surg, had no further questions. Respiratory contacted for transfer to floor d/t pt being on biPAP at this time.
[2023-08-27] MEDS: iohexol 350 mg/mL 500 mL Btl (per mL) IV (18:09)
--- NOTE | 2023-08-27 18:18 | USCV_ITS ---
Kelley Quezada Age: 82 Gender: F : 1940 Exam Date: 08/27/2023 18:46 Ordering Phys: Dilan Rivero MD Technologist: DAVID [place] [facility] [place]: recent pneumonia, SOB, patient on BIPAP in 263-1. Technically difficult study due to poorly- controlled pain levels, anxiety BP: 148 / 92 HR: 91 Rhythm: Atrial fibrillation Technical Quality: Adequate MEASUREMENTS (Male / Female) Normal Values 2D ECHO LV Diastolic Diameter PLAX 3.8 cm 4.2 - 5.9 / 3.9 - 5.3 cm LV Systolic Diameter PLAX 2.3 cm IVS Diastolic Thickness 1.5 cm 0.6 - 1.0 / 0.6 - 0.9 cm IVS Systolic Thickness 1.5 cm LVPW Diastolic Thickness 1.3 cm 0.6 - 1.0 / 0.6 - 0.9 cm LVPW Systolic Thickness 1.2 cm LVOT Diameter 1.5 cm LV Ejection Fraction 2D Teich 72.2 % LV Ejection Fraction MOD 2C 77.4 % LV Ejection Fraction 2C AL 78.5 % LA Diameter 6.1 cm LA Width 6.0 cm LA Height 4.2 cm RA Width 3.9 cm RA Height 5.2 cm Aorta at Sinotubular Diameter 3.1 cm IVC Diameter 3.4 cm M-MODE Aortic Annulus Diameter 2.9 cm LA Ao Ratio MM 2.2 MV E Point Septal Separation 0.6 cm DOPPLER AV Peak Velocity 211.3 cm/s LVOT Peak Velocity 75.0 cm/s AV Area Cont Eq vti 0.8 cm squared AV Area Cont Eq pk 0.7 cm squared MV Peak Velocity 180.0 cm/s MV Area PHT 5.1 cm squared MV E' Velocity 80.5 cm/s Mitral E to MV E' Ratio 10.0 Mitral E to LV E' Lateral Ratio 8.4 Mitral E to LV E' Septal Ratio 12.3 TR Peak Velocity 369.0 cm/s TR Peak Gradient 54.5 mmHg TV Peak E Velocity 65.0 cm/s Right Atrial Pressure 10.0 mmHg Pulmonary Artery Systolic Pressu 64.5 mmHg PV Peak Velocity 89.0 cm/s RV Acceleration Time 0.1 s RV Ejection Time 0.3 s RV AcT/ET 0.4 FINDINGS Left Ventricle Normal left ventricular size and systolic function, EF 73 %. No regional wall motion abnormalities. Right Ventricle Normal right ventricular size and systolic function. Right Atrium Mildly increased right atrial size. Left Atrium Moderately increased left atrial size. Mitral Valve Moderate-severe eccentric mitral valve regurgitation. Aortic Valve Severe, low gradient , normal flow aortic valve stenosis, mean gradient 7.9 mmHg, BEBETO 0.83 cm squared. Tricuspid Valve [id number] tricuspid valve regurgitation. Moderate pulmonary hypertension with an estimated pulmonary artery peak systolic pressure of 65 mmHg Pulmonic Valve Mild pulmonary valve regurgitation. Pericardium Normal pericardium without effusion. Aorta Normal aortic annulus size. IVC Inferior vena cava not visualized. CONCLUSIONS Normal left ventricular size and systolic function, EF 73 %. No regional wall motion abnormalities. Moderate-severe eccentric mitral valve regurgitation. Severe, low gradient , normal flow aortic valve stenosis, mean gradient 7.9 mmHg, BEBETO 0.83 cm squared. [id number] tricuspid valve regurgitation. Moderate pulmonary hypertension with an estimated pulmonary artery peak systolic pressure of 65 mmHg. Mild pulmonary valve regurgitation. There is no pericardial effusion. Comparison with the previous study on 11/14/2018 is difficult because of the differences in the technical quality. There may not be any significant changes in the 2D findings Dr Piyush Lau MD [facility] (Electronically Signed) Final Date: 28 August 2023 13:26 S
[2023-08-27 18:55] LABS: Procalcitonin 0.05 ng/mL (0-0.5); Thyroid Stimulating Hormone 0.41 uIU/mL (0.27-4.20)
[2023-08-27 19:06] LABS: Chol HDL Ratio 2.28 mg/dL (0.0-4.40); Cholesterol 203 mg/dL (0-200); HDL Cholesterol 89 mg/dL (60-100); LDL Cholesterol Calculated 89 mg/dL (50-129); Triglycerides 127 mg/dL (0-150)
--- NOTE | 2023-08-27 19:49 | ECG_ITS ---
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 Measurements Intervals [place] Rate: 83 P: 0 [place]: 0 QRS: 37 QRSD: 92 T: 47 QT: 357 QTc: 421 Interpretive Statements ATRIAL FIBRILLATION ABNORMAL RHYTHM ECG Compared to ECG 08/27/2023 16:00:35 No significant changes Electronically Signed On 08-28-2023 21:39:08 CONCESSION MANAGER by Piyush Lau M.D. [id number]
[2023-08-27] MEDS: atorvastatin 40 mg Tablet 20 MG PO (20:09)
[2023-08-27] MEDS: acetaminophen 325 mg Tablet 650 MG PO (20:09)
[2023-08-27] MEDS: cloNIDine 0.1 mg Tablet PO (20:10)
[2023-08-27] MEDS: FUROsemide 10 mg/mL SDV 4mL 40 MG IVP (20:11)
[2023-08-27] MEDS: metoprolol tartrate 50 mg Tablet 75 MG PO (20:11)
[2023-08-27] MEDS: pantoprazole 40 mg SDV IVP (20:11)
[2023-08-27 20:15] LABS: Adenovirus Not Detected (NOT DETECT); Chlamydia Pneumoniae Not Detected (NOT DETECT); Coronavirus 229E,HKU1,NL63,OC4 Not Detected (NOT DETECT); Human Metapneumovirus Not Detected (NOT DETECT); Human Rhinovirus/Enterovirus Not Detected (NOT DETECT); Influenza A Not Detected (NOT DETECT); Influenza A H1 Not Detected (NOT DETECT); Influenza A H1-2009 Not Detected (NOT DETECT); Influenza A H3 Not Detected (NOT DETECT); Influenza B Not Detected (NOT DETECT); Mycoplasma Pneumoniae Not Detected (NOT DETECT); Parainfluenza Virus Type 1 Not Detected (NOT DETECT); Parainfluenza Virus Type 2 Not Detected (NOT DETECT); Parainfluenza Virus Type 3 Not Detected (NOT DETECT); Parainfluenza Virus Type 4 Not Detected (NOT DETECT); Respiratory Syncytial Virus A Not Detected (NOT DETECT); Respiratory Syncytial Virus B Not Detected (NOT DETECT); SARS-COV-2 Not Detected (NOT DETECT)
[2023-08-27 20:48] LABS: Troponin 5 6HR 33.64 ng/L (0-10); Troponin 5 6HR Delta 6.64 ng/L (0-12)
[2023-08-27] MEDS: ipratropium-albuterol 3 mL Neb INHALATION (21:14)
[2023-08-27 22:33] LABS: Estmated Average Glucose 117; Hemoglobin A1C 5.7 % (4.0-6.0)
[2023-08-28] VITALS (22 sets, daily range): BP systolic 101–138; BP diastolic 61–89; PULSE 89–115; RESP 15–25; TEMP 36.4–37; O2SAT 93–99; BMI 37.7
[2023-08-28] MEDS: ipratropium-albuterol 3 mL Neb INHALATION ×6 (00:44→20:01)
[2023-08-28 03:45] LABS: Glucose Point of Care 89 mg/dL (70-110)
[2023-08-28] MEDS: hydroCHLOROthiazide 25 mg Tablet PO (04:38)
[2023-08-28] MEDS: meropenem 1,000 MG in sodium chloride 0.9% (plus) 50 ML 100 MG IV ×2 (04:39→17:52)
[2023-08-28] MEDS: levothyroxine 125 mcg Tablet PO (04:39)
[2023-08-28 04:44] LABS: Add Urine Culture? Yes; Add Urine Microscopic? YES; Bacteria Urine TRACE /hpf; Bilirubin Urine Neg (Negative); Blood Urine Neg (Negative); Glucose Urine UA Norm (Normal); Ketones Urine Negative (Negative); Leukocyte Esterase Urine 2+ (Negative); Nitrate Urine Negative (Negative); Protein Urine Neg (Negative); RBC Urine 0-4 /hpf (0-2); Squamous Epithelial Cell Urine 0-4 /hpf (0-5); Urine Appearance Clear (CLEAR); Urine Color Yellow (Yellow); Urobilinogen Urine Norm (Negative); WBC Urine 25-40 /hpf (0-5); pH Urine 5 (5-7)
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
[2023-08-28 05:04] LABS: ABG PH Result 7.33 (7.35-7.45); Arterial Blood Gas Hematocrit 36.1 % (37-47); Base Excess ABG 6.1 mmol/L (-2.0-2.0); Blood Gas Allen Test Pos; Blood Gas Operator Identificat BD; Blood Gas Sample Site Brachial, right; Blood Gas Sample Type Arterial; Blood Gas Tidal Volume 0.35; HCO3 ABG 33.8 mmol/L (22-26); Oxygen Device BIPAP; PO2 ABG 85.4 mmHg (80.0-100.0); PO2 FiO2 Ratio Arterial Blood 0
[2023-08-28 05:05] LABS: ABG PCO2 63.7 mmHg (35-45)
[2023-08-28 05:08] LABS: Basophils % 0.1 %; Eosinophils % 0.3 %; Lymphocytes # 2.1 10^3/uL (0.8-4.8); Lymphocytes % 21.4 %; Mean Corpuscular HGB Conc 28.8 g/dL (30-55); Mean Corpuscular Hemoglobin 28.4 pg (27-33); Mean Corpuscular Volume 98.6 fl (85-98); Mean Platelet Volume 9.5 fL (7.4-10.4); Monocytes # 0.9 10^3/uL (0.2-0.9); Monocytes % 8.6 %; Neutrophils # 6.89 10^3/uL (1.8-7.7); Neutrophils % 69.3 %; Nucleated Red Blood Cells % 0 %; Platelet Count 262 10^3/cmm (157-399); Red Blood Count 4.26 10^6/uL (3.85-5.65); White Blood Count 9.95 10^3/uL (3.29-11.43)
[2023-08-28 05:38] LABS: Alanine Aminotransferase 27 U/L (0-33); Albumin Level 3.8 g/dL (3.5-5.2); Alkaline Phosphatase 80 U/L (35-105); Anion Gap 13.3 (5-19); Aspartate Amino Transferase 26 U/L (0-32); Blood Urea Nitrogen 36 mg/dL (8-23); Calcium 8.3 mg/dL (8.5-10.5); Carbon Dioxide 34 mmol/L (22-29); Chloride 95 mmol/L (98-107); Globulin 2.6 g/dL (1.3-4.6); Glucose 96 mg/dL (65-115); Magnesium 2.3 mg/dL (1.7-2.3); Osmolality Calculated 294 mOsm/kg (285-295); Phosphorus 3.9 mg/dL (2.5-4.5); Potassium 4.3 mmol/L (3.5-5.1); Sodium 138 mmol/L (136-145); Total Bilirubin 0.5 mg/dL (0.15-1.2); Total Protein 6.4 g/dL (6.6-8.7)
[2023-08-28 05:41] LABS: NT Pro B Type Natriuretic Pept 13355 pg/mL (0-450)
--- NOTE | 2023-08-28 07:00 | XRR_ITS ---
PROCEDURE INFORMATION: Exam: XR Chest Exam date and time: 08/28/2023 8:49 AM Age: 82 years old Clinical indication: Shortness of breath; Prior surgery; Surgery date: 6+ months; Surgery type: Thyroid, lumpectomy; Patient HX: HX of breast cancer; Additional info: SOB TECHNIQUE: Imaging protocol: Radiologic exam of the chest. Views: 1 view. COMPARISON: CT angio chest PE protcl [id number] 08/27/2023 6:01 PM FINDINGS: Lungs: Low lung volumes limit evaluation. Pleural spaces: Linear right pleural/parenchymal opacity. Heart/Mediastinum: Cardiomegaly. Diaphragm: Elevation of the right hemidiaphragm. Bones/joints: Blastic metastasis thoracic spine XR/XR chest 1V portable [id number] IMPRESSION: 1. Low lung volumes somewhat limit evaluation. Elevation right hemidiaphragm. Persistent pleural/parenchymal opacity right upper lobe. 2. Cardiomegaly. 3. Blastic metastatic disease
--- NOTE | 2023-08-28 08:50 | PC.CHAP ---
Pastoral Care Encounter/Spiritual Assessment Type of Contact [] Declined gmat instructor visit [] Patient/Family/Request visit [] Outpatient visit [] Follow-up visit [] Physician referral [] Code/Alert [] Routine visit [] Staff referral [] Actively dying [x] Patient sleeping [] Family support [] [] Out of room [] Palliative care [] [] Receiving care in room [] Pre-surgical visit [] Trauma [] Long length of stay [] ICU visit [] Other: Relational/Emotional Strength [] Patient feels connected with others/family/visitors/staff [] Distress [] Loneliness/isolation [] Abandonment Spirituality of Patient [] Person of Cynthia [] Attends Judaism of their Cynthia [] Believes in Prayer [] Reads Bible or Episcopalian materials [] There are Spiritual issues to be addressed Editor Sound Interventions [] Prayer [] Active listening [] Non-anxious presence [] Spiritual/emotional support [] Crisis/trauma care [] Spiritual counseling [] Bereavement support [] Provided bereavement packet [] Provided Bible/devotional materials [] Provided toy/stuffed animal, coloring book to patient or family member [] Provided Communion [] Anointing/[place] [] Salvation [] Completed spiritual assessment [] Other: Impact on Illness or Injury [] Angry [] Fearful [] Anxious [] Often cries [] Exhaustion [] Unable to work [] Unable to attend adventism [] Unable to walk/stand [] Unable to read [] Unable to drive [] Unable to eat/drink [] Unable to sleep [] Unable to be with family [] Patient intubated [] Other: Summary Time spent with patient
[2023-08-28] MEDS: lisinopril 20 mg Tablet 40 MG PO (11:42)
[2023-08-28] MEDS: metoprolol tartrate 50 mg Tablet 75 MG PO ×2 (11:43→17:51)
[2023-08-28] MEDS: pantoprazole DR 40 mg Tablet PO (11:46)
[2023-08-28] MEDS: cloNIDine 0.1 mg Tablet PO (11:46)
--- NOTE | 2023-08-28 16:27 | P.PN_ITS ---
Subjective 2 Subjective: Patient was seen this morning, she tells me her shortness of breath is improving, she still a bit hypercarbic, advised to continue BiPAP therapy throughout the morning, the afternoon we can try to put onto nasal cannula, but needs to wear the BiPAP throughout the night, ultrasound thoracocentesis ordered, denies any chest pain, Vitals/I&O/Wt Last Vital Signs Temp 98.6 F 08/28/23 12:00 Pulse 103 H 08/28/23 15:41 Resp 24 H 08/28/23 15:41 BP 138/84 08/28/23 12:00 Pulse Ox 95 08/28/23 15:41 O2 Del Method Nasal Cannula 08/28/23 15:41 O2 Flow Rate 3 08/28/23 15:41 FiO2 36 08/28/23 11:30 08/28/23 08/28/23 08/28/23 06:59 14:59 22:59 Intake Total 50 / 700 Output Total 600 / 600 300 / 300 Balance -550 / 100 -300 / -300 Weight last 48 hrs Weight 96.615 kg Weight 96.751 kg Weight 88.904 kg Physical Exam 2 Const: COMMON NORMALS: no acute distress and patient oriented x3 Resp: COMMON NORMALS: normal respiratory effort, No retractions and No use of accessory muscles AUSCULTATION: crackles and wheezes Cardio: COMMON NORMALS: regular rate, regular rhythm, S1 normal heart sound present and S2 normal heart sound present RATE: regular rate RHYTHM: r egular rhythm HEART SOUNDS: S1 normal heart sound present and S2 normal heart sound present GI: COMMON NORMALS: Normal to inspection, nondistended, normoactive bowel sounds present and non-tender Extremity: NARRATIVE EXTREMITY EXAM: Has 1+ pitting edema Neuro: COMMON NORMALS: patient oriented x3 Psych: COMMON NORMALS: mental status grossly normal Data 08/28/23 04:49 08/28/23 04:49 A&P Assessment and plan (1) Acute hypoxic on chronic hypercapnic respiratory failure: (2) Pneumonia: Qualifiers: Laterality: bilateral Lung location: unspecified part of lung P neumonia type: due to unspecified organism Qualified Code(s): J18.9 - Pneumonia, unspecified organism (3) Pleural effusion, right: (4) Atrial fibrillation with RVR: (5) Hypothyroidism: Qualifiers: Hypothyroidism type: unspecified Qualified Code(s): E03.9 - Hypothyroidism, unspecified (6) CKD (chronic kidney disease): (7) SOB (shortness of breath): (8) Breast cancer, left: (9) Systolic CHF: (10) Aortic stenosis: (11) Moderate pulmonary hypertension: Plan Acute hypoxic hypercarbic respiratory failure ?etiology: ? Some degree of note has 1+ pitting edema, right pleural effusion, ? Large right pleural effusion, ? Cannot rule out underlying pneumonia ct angiogram -IMPRESSION: 1. Moderate right-sided and trace-small left-sided pleural effusions. 2. Right middle lobe atelectasis. Pulmonary clinic follow-up is recommended. Consider follow-up outpatient bronchoscopy. 3. No evidence of PE or acute aortic abnormality. 4. Mild dilation of the pulmonary trunk to 3.0 cm which can be seen with pulmonary arterial hypertension. ? Plan ? Continue BiPAP therapy ?monitor respiratory status closely ?continue DuoNeb -For now continue broad-spectrum antibiotic therapy, vancomycin, meropenem colitis ?1 dose Lasix ? Cardiac echocardiogram clinics -Has a large right pleural effusion, ultrasound thoracocentesis, has a history of left-sided breast cancer, will do CSF analysis, pathology Aortic stenosis Severe, low gradient , normal flow aortic valve stenosis, mean gradient 7.9 mmHg, BEBETO 0.83 cm squared. Moderate pulomnary hypertension -will monitor closely -nnneds outpatient pulmonary follow up Right pleural effusion -Right pleural effusion thoracocentesis, ultrasound no significant fluid to drain ? Pleural fluid analysis A-fib with RVR ? Currently heart rate well-controlled, ? Continue home metoprolol 75 twice daily ?start eliquis NSTEMI ? No chest pain complaints, ? Serial EKGs, serial troponins, telemetry monitoring, eliquis DVT prophylaxis tomorrow, ? After thoracocentesis ?SCDs for DVT prophylaxis, full code Attestations 2 Medical Necessity Statement*: Patient requires hospitalization for fluid overload, requiring diuresis, A-fib, pneumonia, Diagnoses Acute hypoxic on chronic hypercapnic respiratory failure J96.01; J96.12 Pneumonia J18.9 Laterality: bilateral Lung location: unspecified part of lung Pneumonia type: due to unspecified organism Pleural effusion, right J90 Atrial fibrillation with RVR I48.91 Hypothyroidism, unspecified type E03.9 Hypothyroidism type: unspecified CKD (chronic kidney disease) N18.9 SOB (shortness of breath) R06.02 Breast cancer, left C50.912 Systolic CHF I50.20 Aortic stenosis I35.0 Moderate pulmonary hypertension I27.20
[2023-08-28] MEDS: aspirin 81 mg EC Tablet PO (17:50)
[2023-08-28] MEDS: apixaban 5 mg Tablet PO (17:52)
[2023-08-28] MEDS: FUROsemide 10 mg/mL SDV 4mL 40 MG IVP (17:53)
--- NOTE | 2023-08-28 18:18 | US_ITS ---
WS: [id number] INDICATION: Thoracentesis TECHNIQUE: Ultrasound chest FINDINGS: Ultrasound RIGHT and LEFT chest. Small RIGHT pleural effusion with subsegmental atelectasis and compressive lung RIGHT lower lobe. Insufficient fluid for safe thoracentesis. IMPRESSION: Insufficient fluid for thoracentesis
[2023-08-28] MEDS: atorvastatin 40 mg Tablet 20 MG PO (20:45)
[2023-08-28] MEDS: vancomycin 1,500 MG/300 ML PIGGYBACK 200 MG IV (20:45)
[2023-08-29] VITALS (25 sets, daily range): BP systolic 114–150; BP diastolic 70–87; PULSE 71–195; RESP 16–22; TEMP 36.4–36.7; O2SAT 93–99
[2023-08-29] MEDS: ipratropium-albuterol 3 mL Neb INHALATION ×7 (00:19→23:24)
[2023-08-29] MEDS: meropenem 1,000 MG in sodium chloride 0.9% (plus) 50 ML 100 MG IV ×2 (03:45→14:57)
[2023-08-29 04:28] LABS: ABG PH Result 7.34 (7.35-7.45); Arterial Blood Gas Hematocrit 37.7 % (37-47); Base Excess ABG 7.5 mmol/L (-2.0-2.0); Blood Gas Sample Site Brachial, right; Blood Gas Sample Type Arterial; HCO3 ABG 35.3 mmol/L (22-26); Oxygen Device NC; PO2 ABG 78.1 mmHg (80.0-100.0)
[2023-08-29] MEDS: levothyroxine 125 mcg Tablet PO (05:23)
[2023-08-29] MEDS: apixaban 5 mg Tablet PO ×2 (05:23→17:39)
[2023-08-29] MEDS: hydroCHLOROthiazide 25 mg Tablet PO (05:23)
[2023-08-29 06:15] LABS: Basophils % 0.2 %; Eosinophils # 0.2 10^3/uL (0.0-0.8); Eosinophils % 2.3 %; Hematocrit 40.5 % (36-47); Lymphocytes # 2.4 10^3/uL (0.8-4.8); Lymphocytes % 25.6 %; Mean Corpuscular HGB Conc 29.4 g/dL (30-55); Mean Corpuscular Hemoglobin 28.7 pg (27-33); Mean Corpuscular Volume 97.8 fl (85-98); Mean Platelet Volume 9.5 fL (7.4-10.4); Monocytes % 10.1 %; Neutrophils # 5.78 10^3/uL (1.8-7.7); Neutrophils % 61.4 %; Nucleated Red Blood Cells % 0 %; Platelet Count 242 10^3/cmm (157-399); Red Blood Count 4.14 10^6/uL (3.85-5.65); White Blood Count 9.42 10^3/uL (3.29-11.43)
[2023-08-29 06:42] LABS: Lactate (Lactic Acid level) 1.4 mmol/L (0.5-2.2)
[2023-08-29 06:48] LABS: C Reactive Protein 3.4 mg/L (0.0-4.9); NT Pro B Type Natriuretic Pept 5816 pg/mL (0-450); Procalcitonin 0.09 ng/mL (0-0.5)
[2023-08-29 06:49] LABS: Alanine Aminotransferase 21 U/L (0-33); Albumin Level 3.4 g/dL (3.5-5.2); Alkaline Phosphatase 74 U/L (35-105); Blood Urea Nitrogen 39 mg/dL (8-23); Calcium 8.1 mg/dL (8.5-10.5); Carbon Dioxide 29 mmol/L (22-29); Chloride 95 mmol/L (98-107); Globulin 2.5 g/dL (1.3-4.6); Glucose 82 mg/dL (65-115); Magnesium 2.2 mg/dL (1.7-2.3); Osmolality Calculated 292 mOsm/kg (285-295); Sodium 137 mmol/L (136-145); Total Bilirubin 0.4 mg/dL (0.15-1.2); Total Protein 5.9 g/dL (6.6-8.7)
[2023-08-29 06:54] LABS: Aspartate Amino Transferase 19 U/L (0-32)
[2023-08-29 06:58] LABS: Creatine Phosphokinase 36 U/L (26-192)
--- NOTE | 2023-08-29 08:25 | PC.RESP ---
when rt entered room, continous monitor was alarming. spo2 was 72%. pt had nc out of nose stating she could breath easier without the oxygen. rt replaced nc into nares and educated pt on the effects of o2 being that low and the importance of keeping the nc on. after a few minutes with nc on, o2 increased to >94%. pt then proceeded to tell rt her breathing was worse. rt attempted to get pt to wear bipap once again educating pt. pt refusesd bipap.
[2023-08-29] MEDS: lisinopril 20 mg Tablet 40 MG PO (08:44)
[2023-08-29] MEDS: acetaminophen 325 mg Tablet 650 MG PO (08:44)
[2023-08-29] MEDS: aspirin 81 mg EC Tablet PO (08:45)
[2023-08-29] MEDS: cloNIDine 0.1 mg Tablet PO ×2 (08:45→17:39)
[2023-08-29] MEDS: pantoprazole DR 40 mg Tablet PO (08:45)
[2023-08-29] MEDS: metoprolol tartrate 50 mg Tablet 75 MG PO ×2 (08:45→17:39)
[2023-08-29] MEDS: FUROsemide 10 mg/mL SDV 2mL 20 MG IVP (09:57)
[2023-08-29] MEDS: dilTIAZem 30 mg Tablet PO ×3 (10:36→21:41)
--- NOTE | 2023-08-29 11:16 | PC.SOCIAL ---
IMM Update pg 2 of IMM updated and reviewed w/ patient. Copy provided and Copy dated, initialed and placed in chart.
--- NOTE | 2023-08-29 12:32 | P.PN_ITS ---
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, has moderate pulm hypertension, she continues to have hypercarbia, requiring BiPAP therapy, we discussed diuresis, during our discussion she her heart rates were in the 150s, A-fib with RVR, we discussed that she received metoprolol this morning, will monitor heart rate likely add on Cardizem, she is agreeable, Vitals/I&O/Wt Last Vital Signs Temp 98.1 F 08/29/23 11:27 Pulse 92 08/29/23 11:42 Resp 18 08/29/23 11:33 BP 126/78 08/29/23 11:27 Pulse Ox 98 08/29/23 11:38 O2 Del Method Nasal Cannula 08/29/23 11:33 O2 Flow Rate 3 08/29/23 11:33 FiO2 36 08/29/23 11:38 08/28/23 08/29/23 08/29/23 22:59 06:59 14:59 Intake Total 590 / 590 50 / 640 480 / 480 Output Total 700 / 1000 150 / 1150 Balance -110 / -410 -100 / -510 480 / 480 Weight last 48 hrs Weight 95.765 kg Weight 96.615 kg Weight 96.751 kg Weight 88.904 kg Physical Exam 2 Const: COMMON NORMALS: no acute distress and patient oriented x3 Resp: COMMON NORMALS: normal respiratory effort, No retractions, No use of accessory muscles and clear to auscultation bilaterally AUSCULTATION: clear to auscultation bilaterally Cardio: COMMON NORMALS: S1 normal heart sound present and S2 normal heart sound present HEART SOUNDS: S1 normal heart sound present and S2 normal heart sound present GI: COMMON NORMALS: Normal to inspection, nondistended, normoactive bowel sounds present and non-tender Extremity: GENERAL: Yes edema Neuro: COMMON NORMALS: patient oriented x3 Psych: COMMON NORMALS: mental status grossly normal Data 08/29/23 05:42 08/29/23 05:42 Micro: Microbiology 08/28/23 04:20 Urine Culture - Preliminary Urine,Clean Catch A&P Assessment and plan (1) Acute hypoxic on chronic hypercapnic respiratory failure: (2) Pneumonia: Qualifiers: Laterality: bilateral Lung location: unspecified part of lung P neumonia type: due to unspecified organism Qualified Code(s): J18.9 - Pneumonia, unspecified organism (3) Pleural effusion, right: (4) Atrial fibrillation with RVR: (5) Hypothyroidism: Qualifiers: Hypothyroidism type: unspecified Qualified Code(s): E03.9 - Hypothyroidism, unspecified (6) CKD (chronic kidney disease): (7) SOB (shortness of breath): (8) Breast cancer, left: (9) Systolic CHF: (10) Aortic stenosis: (11) Moderate pulmonary hypertension: Plan Acute hypoxic hypercarbic respiratory failure ?etiology: ? 1+ pitting edema, right pleural effusion, ? Cannot rule out underlying pneumonia ct angiogram -IMPRESSION: 1. Moderate right-sided and trace-small left-sided pleural effusions. 2. Right middle lobe atelectasis. Pulmonary clinic follow-up is recommended. Consider follow-up outpatient bronchoscopy. 3. No evidence of PE or acute aortic abnormality. 4. Mild dilation of the pulmonary trunk to 3.0 cm which can be seen with pulmonary arterial hypertension. ? Plan ? Continue BiPAP therapy ?monitor respiratory status closely ?continue DuoNeb -For now continue broad-spectrum antibiotic therapy, vancomycin, meropenem ?1 dose Lasix today -Has right pleural effusion, ultrasound thoracocentesis, has a history of left- sided breast cancer, not enough to drain as per radiology Aortic stenosis Severe, low gradient , normal flow aortic valve stenosis, mean gradient 7.9 mmHg, BEBETO 0.83 cm squared. Moderate pulomnary hypertension -will monitor closely -neeeds outpatient pulmonary follow up Right pleural effusion -Right pleural effusion thoracocentesis, ultrasound no significant fluid to drain ? Pleural fluid analysis A-fib with RVR ? A-fib likely difficult to control given aortic stenosis ? Currently heart rate well-controlled, ? Continue home metoprolol 75 twice daily -start cardizem 30mg q6hrs ?start eliquis NSTEMI ? No chest pain complaints, ? Serial EKGs, serial troponins, telemetry monitoring, eliquis DVT prophylaxis ? After thoracocentesis ?SCDs for DVT prophylaxis, full code Today in A-fib with RVR, add on Cardizem 30 mg every 6 hours, continue Eliquis, metoprolol creased to 75 twice daily, for respiratory failure, 1 dose of Lasix continue antibiotics, will order overnight pulse ox, consulted cardiology Attestations 2 Medical Necessity Statement*: Patient requires hospitalization for A-fib with RVR, fluid overload, pneumonia and required IV antibiotics Diagnoses Acute hypoxic on chronic hypercapnic respiratory failure J96.01; J96.12 Pneumonia J18.9 Laterality: bilateral Lung location: unspecified part of lung Pneumonia type: due to unspecified organism Pleural effusion, right J90 Atrial fibrillation with RVR I48.91 Hypothyroidism, unspecified type E03.9 Hypothyroidism type: unspecified CKD (chronic kidney disease) N18.9 SOB (shortness of breath) R06.02 Breast cancer, left C50.912 Systolic CHF I50.20 Aortic stenosis I35.0 Moderate pulmonary hypertension I27.20
[2023-08-29] MEDS: atorvastatin 40 mg Tablet 20 MG PO (21:41)
[2023-08-29] MEDS: vancomycin 1,500 MG/300 ML PIGGYBACK 200 MG IV (21:42)
[2023-08-30] VITALS (21 sets, daily range): BP systolic 94–116; BP diastolic 59–79; PULSE 71–98; RESP 15–20; TEMP 36.4–36.8; O2SAT 91–97
[2023-08-30] MEDS: dilTIAZem 30 mg Tablet PO ×4 (03:25→21:13)
[2023-08-30] MEDS: meropenem 1,000 MG in sodium chloride 0.9% (plus) 50 ML 100 MG IV ×2 (03:25→17:01)
[2023-08-30] MEDS: ipratropium-albuterol 3 mL Neb INHALATION ×6 (04:01→23:35)
[2023-08-30 04:16] LABS: ABG PCO2 61.5 mmHg (35-45); ABG PH Result 7.37 (7.35-7.45); Arterial Blood Gas Hematocrit 35.2 % (37-47); Base Excess ABG 8.7 mmol/L (-2.0-2.0); Blood Gas Allen Test Pos; Blood Gas Sample Site Radial, right; Blood Gas Sample Type Arterial; HCO3 ABG 35.8 mmol/L (22-26); Oxygen Device BIPAP; PO2 FiO2 Ratio Arterial Blood 0
[2023-08-30 05:30] LABS: Basophils % 0.4 %; Eosinophils # 0.3 10^3/uL (0.0-0.8); Eosinophils % 3.5 %; Lymphocytes # 1.8 10^3/uL (0.8-4.8); Lymphocytes % 21.9 %; Mean Corpuscular HGB Conc 30.3 g/dL (30-55); Mean Corpuscular Hemoglobin 28.6 pg (27-33); Mean Corpuscular Volume 94.4 fl (85-98); Mean Platelet Volume 9.3 fL (7.4-10.4); Monocytes # 0.8 10^3/uL (0.2-0.9); Monocytes % 10.2 %; Neutrophils # 5.15 10^3/uL (1.8-7.7); Neutrophils % 63.5 %; Nucleated Red Blood Cells % 0 %; Platelet Count 248 10^3/cmm (157-399); Red Blood Count 3.92 10^6/uL (3.85-5.65); Red Cell Distribution Width 14.1 % (12.1-15.1)
[2023-08-30 05:50] LABS: Alanine Aminotransferase 13 U/L (0-33); Albumin Level 3.3 g/dL (3.5-5.2); Alkaline Phosphatase 66 U/L (35-105); Anion Gap 12.7 (5-19); Aspartate Amino Transferase 12 U/L (0-32); Blood Urea Nitrogen 34 mg/dL (8-23); Calcium 7.9 mg/dL (8.5-10.5); Carbon Dioxide 35 mmol/L (22-29); Chloride 93 mmol/L (98-107); Globulin 2.4 g/dL (1.3-4.6); Glucose 94 mg/dL (65-115); Lactate (Lactic Acid level) 0.9 mmol/L (0.5-2.2); Osmolality Calculated 291 mOsm/kg (285-295); Phosphorus 4.1 mg/dL (2.5-4.5); Potassium 3.7 mmol/L (3.5-5.1); Sodium 137 mmol/L (136-145); Total Bilirubin 0.5 mg/dL (0.15-1.2); Total Protein 5.7 g/dL (6.6-8.7)
[2023-08-30 05:52] LABS: C Reactive Protein 5.7 mg/L (0.0-4.9); Creatine Phosphokinase 26 U/L (26-192)
[2023-08-30 06:00] LABS: NT Pro B Type Natriuretic Pept 3712 pg/mL (0-450); Procalcitonin 0.07 ng/mL (0-0.5)
[2023-08-30] MEDS: levothyroxine 125 mcg Tablet PO (07:20)
[2023-08-30] MEDS: apixaban 5 mg Tablet PO ×2 (07:20→17:02)
[2023-08-30] MEDS: hydroCHLOROthiazide 25 mg Tablet PO (07:20)
--- NOTE | 2023-08-30 09:43 | P.CONIM_ITS ---
Providers/Reason For Consult 2 Consulting Physician/Specialty*: Mian Rose MD/ Cardiology Reason for Consult*: Aortic stenosis Requesting Physician: Dr Rivero Attending Physician: Dialn Rivero MD Primary Care Provider: Jo Ledezma MD History of Present Illness History of Present Illness Kelley Quezada is a 82 year old female with past medical history of recently diagnosed atrial fibrillation, hypertension who presented to the hospital with worsening shortness of breath. Also is pleural effusion. Currently getting treatment for possible pneumonia. She says she has been having worsening shortness of breath since May. Denies significant chest pain does have palpitations. EKG shows afib with RVR. Currently heart rate has normalized. On anticoagulation. Cardiology was consulted as echo is showing possible low-flow normal gradient severe aortic stenosis and moderate to severe mitral regurgitation. Review of Systems 2 Const: Reports: body aches, fatigue and malaise; Denies: fever(s) or chills Eyes: Denies: change in vision Card: Reports: palpitations and swelling of feet/ankles; Denies: chest pain Resp: Reports: dyspnea and non-productive cough GI: Denies: abdominal pain or nausea : Denies: flank pain Musc: Denies: neck pain or back pain Skin/Breast: Denies: rash Neuro: Denies: headache(s), numbness in extremities or weakness in extremities Endo: Denies: polyuria Medications/Allergies Home Medications Medication Instructions Recorded Confirmed Last Taken Type ascorbic acid (vitamin C) 1,000 mg 1,000 mg PO DAILY 09/09/19 08/27/23 06/14/22 History tablet calcium carbonate 600 mg calcium 600 mg PO DAILY 08/09/22 08/27/23 Unknown History (1,500 mg) tablet (Calcium) albuterol sulfate 2.5 mg/3 mL 2.5 mg (3 mL) inhalation QID PRN 06/06/23 08/27/23 Unknown Rx (0.083 %) solution for nebulization shortness of breath or wheezing #90 mL cefdinir 300 mg capsule 300 mg PO BID 10 days #20 caps 08/24/23 08/27/23 08/27/23 Rx ondansetron HCl 4 mg tablet 4 mg PO Q6H PRN nausea and 08/24/23 08/27/23 Unknown Rx vomiting #30 tabs prednisone 20 mg tablet 20 mg PO BID 5 days #10 tabs 08/24/23 08/27/23 08/27/23 Rx chlordiazepoxide HCl 10 mg capsule 10 mg PO BEDTIME 08/27/23 08/27/23 Unknown History clonidine HCl 0.1 mg tablet 0.1 mg PO BID 08/27/23 08/27/23 Unknown History hydrochlorothiazide 25 mg tablet 25 mg PO QAM 08/27/23 08/27/23 08/27/23 History letrozole 2.5 mg tablet 2.5 mg PO DAILY 08/27/23 08/27/23 Unknown History levothyroxine 125 mcg tablet 125 mcg PO QAM 08/27/23 08/27/23 08/27/23 History lisinopril 40 mg tablet 40 mg PO BID 08/27/23 08/27/23 08/27/23 History lovastatin 20 mg tablet 40 mg PO DAILY 08/27/23 08/27/23 Unknown History metoprolol tartrate 50 mg tablet 75 mg PO BID 08/27/23 08/27/23 Unknown History omeprazole 40 mg capsule,delayed 40 mg PO DAILY 08/27/23 08/27/23 Unknown History release Allergies Allergy/AdvReac Type Severity Reaction Status Date / Time adhesive Allergy Intermediate ALGY-Bliste Verified 08/27/23 13:54 r clarithromycin [From Biaxin] Allergy Intermediate thrush Verified 08/27/23 13:54 Penicillins Allergy Unknown Unknown Verified 08/27/23 13:54 Current Medications Generic Name Dose Route Start Last Admin Trade Name Freq PRN Reason Stop Dose Admin Acetaminophen 650 mg 08/27/23 18:18 08/29/23 08:44 Acetaminophen 325 Mg Tablet PO 650 mg Q6H PRN Administration Mild/Mod Pain Or Temp >/= 101 Albuterol/Ipratropium 3 ml 08/27/23 20:00 08/30/23 08:33 Ipratropium-Albuterol 3 Ml Neb INHALATION 3 ml Q4H.RESPIRATORY ABHAY Administration Apixaban 5 mg 08/28/23 16:45 08/30/23 07:20 Apixaban 5 Mg Tablet PO 5 mg Q12H ABHAY Administration Aspirin 81 mg 08/28/23 18:00 08/29/23 08:45 Aspirin 81 Mg Ec Tablet PO 81 mg DAILY ABHAY Administration Atorvastatin Calcium 20 mg 08/27/23 21:00 08/29/23 21:41 Atorvastatin 40 Mg Tablet PO 20 mg BEDTIME ABHAY Administration Clonidine HCl 0.1 mg 08/27/23 18:18 08/29/23 17:39 Clonidine 0.1 Mg Tablet PO 0.1 mg BID ABHAY Administration Diltiazem HCl 30 mg 08/29/23 10:00 08/30/23 03:25 Diltiazem 30 Mg Tablet PO 30 mg Q6H ABHAY Administration Hydrochlorothiazide 25 mg 08/28/23 06:00 08/30/23 07:20 Hydrochlorothiazide 25 Mg Tablet PO 25 mg QAM ABHAY Administration Meropenem 1,000 mg/ Sodium 50 mls @ 100 mls/hr 08/27/23 23:00 08/30/23 04:37 Chloride IV Infused Q12H ABHAY Infusion Protocol Vancomycin/PEG/NADA/Lysine/Water 1,500 mg in 300 mls @ 200 mls/hr 08/27/23 21:00 08/29/23 23:28 Vancocin IV Infused Q24H ABHAY Infusion Levothyroxine Sodium 125 mcg 08/28/23 06:00 08/30/23 07:20 Levothyroxine 125 Mcg Tablet PO 125 mcg QAM ABHAY Administration Lisinopril 40 mg 08/28/23 09:00 08/29/23 08:44 Lisinopril 20 Mg Tablet PO 40 mg DAILY ABHAY Administration Metoprolol Tartrate 75 mg 08/27/23 18:18 08/29/23 17:39 Metoprolol Tartrate 50 Mg Tablet PO 75 mg BID ABHAY Administration Non-Formulary Medication 2.5 mg 08/28/23 09:00 08/29/23 08:45 Letrozole PO Not Given DAILY ABHAY Pantoprazole Sodium 40 mg 08/28/23 09:00 08/29/23 08:[address] 40 Mg Tablet PO 40 mg DAILY ABHAY Administration PFSH Acute 2 PFSH: Medical History Osteoporosis Gout History of right shoulder fracture Breast cancer, left 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 Nu Hubbard [facility] Hx of foot surgery bilateral History of lumpectomy of right breast Hx of tubal ligation Hx of total thyroidectomy Hx of appendectomy Hx of left breast biopsy Family History Sister Cancer Breast Other Family history non-contributory Suicide Denies family history of Diabetes CAD (coronary artery disease) Clotting disorder Dementia Hyperlipidemia Psychiatric illness Chronic kidney disease (CKD) Anesthesia complication Bleeding disorder Lung disease Hypertension Stroke Social History Smoking and tobacco/nicotine status: former use of tobacco/nicotine Quit status (tobacco/nicotine): has quit using Year quit tobacco: in 20's Former quit date comment: Not sure of quit date Second hand smoke exposure: No Alcohol intake: never Substance/Drug Use: never Caregiver/support person: Yes Lives independently: Yes Household members: spouse Marital status: Current occupational status: retired Current gender identity: Female Special temi needs: No Agree to transfusion: Yes Vitals/I&O/Wt Last Vital Signs Temp 98.2 F 08/30/23 08:00 Pulse 94 08/30/23 08:33 Resp 18 08/30/23 08:33 BP 116/79 08/30/23 08:00 Pulse Ox 96 08/30/23 08:33 O2 Del Method Nasal Cannula 08/30/23 08:33 O2 Flow Rate 3 08/30/23 08:33 FiO2 36 08/30/23 04:02 08/29/23 08/30/23 08/30/23 22:59 06:59 14:59 Intake Total 530 / 1010 350 / 1360 360 / 360 Output Total 150 / 150 Balance 380 / 860 350 / 1210 360 / 360 Weight last 48 hrs Weight 211 lb 3 oz Weight 211 lb 2 oz Physical Exam 2 Narrative: GENERAL: Patient is alert, awake and oriented x3. [] NECK: No jugular vein distension. [] HEENT: No cyanosis. No icterus. No pallor. [] HEART: Irregularly irregular LUNGS:Diminished air entry CENTRAL NERVOUS SYSTEM: Grossly nonfocal. [] EXTREMITIES: Lower extremities with 1+ edema bilaterally. [] Data 08/31/23 04:57 08/31/23 04:57 Micro: Microbiology 08/28/23 04:20 Urine Culture - Final Urine,Clean Catch 08/27/23 14:45 Blood Culture - Preliminary Blood 08/27/23 14:50 Blood Culture - Preliminary Blood A&P Assessment and plan (1) Atrial fibrillation with RVR: (2) Aortic stenosis: (3) Congestive heart failure: (4) PAD (peripheral artery disease): (5) Essential (primary) hypertension: (6) Mixed hyperlipidemia: (7) Mitral regurgitation: Plan Patient has presented with worsening shortness of breath and is found to have aortic stenosis and mitral regurgitation. Degree of severity needs further investigation as mean gradient across aortic valve is very low. Will benefit from transesophageal echocardiogram once patient is stable. She will also need right and left heart cath when renal function is stabilized. May need to add as an outpatient. Continue antibiotics per primary team. Monitor renal function. If worsens further, can consider holding diuretic therapy for now. Thank you for involving us with care of this patient. We will continue to follow. Please call with questions Consult Attestations 2 Medical Necessity Statement: Care expected to cross 2 midnights. Coding Level of Care Code Acute Code for [facility] Diagnoses Atrial fibrillation with RVR I48.91 Aortic stenosis I35.0 Congestive heart failure I50.9 PAD (peripheral artery disease) I73.9 Essential (primary) hypertension I10 Mixed hyperlipidemia E78.2 Mitral regurgitation I34.0
[2023-08-30] MEDS: metoprolol tartrate 50 mg Tablet 75 MG PO ×2 (10:22→17:02)
[2023-08-30] MEDS: lisinopril 20 mg Tablet 40 MG PO (10:22)
[2023-08-30] MEDS: pantoprazole DR 40 mg Tablet PO (10:23)
[2023-08-30] MEDS: cloNIDine 0.1 mg Tablet PO ×2 (10:23→17:02)
[2023-08-30] MEDS: aspirin 81 mg EC Tablet PO (10:24)
[2023-08-30] MEDS: benzonatate 100 mg Capsule PO (10:26)
--- NOTE | 2023-08-30 18:17 | P.PN_ITS ---
Subjective 2 Subjective: Patient was seen this morning, she continues to have nonpitting edema bilateral extremities and wheezing crackles and intermittent shortness of breath, no chest pain, palpitations Vitals/I&O/Wt Last Vital Signs Temp 98.2 F 08/30/23 15:56 Pulse 90 08/30/23 15:56 Resp 18 08/30/23 15:56 BP 112/71 08/30/23 17:02 Pulse Ox 94 08/30/23 15:56 O2 Del Method Nasal Cannula 08/30/23 15:50 O2 Flow Rate 3 08/30/23 15:50 FiO2 36 08/30/23 04:02 08/30/23 08/30/23 08/30/23 06:59 14:59 22:59 Intake Total 350 / 1360 600 / 600 290 / 890 Balance 350 / 1210 600 / 600 290 / 890 Weight last 48 hrs Weight 95.793 kg Weight 95.765 kg Physical Exam 2 Const: COMMON NORMALS: no acute distress and patient oriented x3 Resp: COMMON NORMALS: normal respiratory effort, No retractions and No use of accessory muscles AUSCULTATION: crackles and wheezes Cardio: COMMON NORMALS: regular rate, regular rhythm, S1 normal heart sound present and S2 normal heart sound present RATE: regular rate RHYTHM: r egular rhythm HEART SOUNDS: S1 normal heart sound present and S2 normal heart sound present GI: COMMON NORMALS: Normal to inspection, nondistended, normoactive bowel sounds present and non-tender Extremity: NARRATIVE EXTREMITY EXAM: 1+ edema Neuro: COMMON NORMALS: patient oriented x3 Psych: COMMON NORMALS: mental status grossly normal Data 08/30/23 05:09 08/30/23 05:09 Micro: Microbiology 08/28/23 04:20 Urine Culture - Final Urine,Clean Catch 08/27/23 14:45 Blood Culture - Preliminary Blood 08/27/23 14:50 Blood Culture - Preliminary Blood A&P Assessment and plan (1) Acute hypoxic on chronic hypercapnic respiratory failure: (2) Pneumonia: Qualifiers: Laterality: bilateral Lung location: unspecified part of lung P neumonia type: due to unspecified organism Qualified Code(s): J18.9 - Pneumonia, unspecified organism (3) Pleural effusion, right: (4) Atrial fibrillation with RVR: (5) Hypothyroidism: Qualifiers: Hypothyroidism type: unspecified Qualified Code(s): E03.9 - Hypothyroidism, unspecified (6) CKD (chronic kidney disease): (7) SOB (shortness of breath): (8) Breast cancer, left: (9) Systolic CHF: (10) Aortic stenosis: (11) Moderate pulmonary hypertension: Plan Acute hypoxic hypercarbic respiratory failure ?etiology: ? 1+ pitting edema, right pleural effusion, ? Cannot rule out underlying pneumonia ct angiogram -IMPRESSION: 1. Moderate right-sided and trace-small left-sided pleural effusions. 2. Right middle lobe atelectasis. Pulmonary clinic follow-up is recommended. Consider follow-up outpatient bronchoscopy. 3. No evidence of PE or acute aortic abnormality. 4. Mild dilation of the pulmonary trunk to 3.0 cm which can be seen with pulmonary arterial hypertension. ? Plan ? Continue BiPAP therapy ?monitor respiratory status closely ?continue DuoNeb -For now continue broad-spectrum antibiotic therapy, vancomycin, meropenem ? hold off on Lasix today, monitor respiratory status, overnight pulse ox -Has right pleural effusion, ultrasound thoracocentesis, has a history of left- sided breast cancer, not enough to drain as per radiology Aortic stenosis Severe, low gradient , normal flow aortic valve stenosis, mean gradient 7.9 mmHg, BEBETO 0.83 cm squared. Moderate pulomnary hypertension -will monitor closely -neeeds outpatient pulmonary follow up Right pleural effusion -Right pleural effusion thoracocentesis, ultrasound no significant fluid to drain ? Pleural fluid analysis A-fib with RVR ? A-fib likely difficult to control given aortic stenosis ? Currently heart rate well-controlled, ? Continue home metoprolol 75 twice daily -start cardizem 30mg q6hrs ?start eliquis NSTEMI ? No chest pain complaints, ? Serial EKGs, serial troponins, telemetry monitoring, eliquis DVT prophylaxis ? After thoracocentesis ?SCDs for DVT prophylaxis, full code Plan for today continue antibiotics, monitor respiratory status closely, monitor urine output, will consider further Lasix based on clinical progress, cardiology consultation, Attestations 2 Medical Necessity Statement*: Patient requires hospitalization for acute hypoxic respiratory failure, respiratory failure, fluid overload, A-fib, pneumonia Diagnoses Acute hypoxic on chronic hypercapnic respiratory failure J96.01; J96.12 Pneumonia J18.9 Laterality: bilateral Lung location: unspecified part of lung Pneumonia type: due to unspecified organism Pleural effusion, right J90 Atrial fibrillation with RVR I48.91 Hypothyroidism, unspecified type E03.9 Hypothyroidism type: unspecified CKD (chronic kidney disease) N18.9 SOB (shortness of breath) R06.02 Breast cancer, left C50.912 Systolic CHF I50.20 Aortic stenosis I35.0 Moderate pulmonary hypertension I27.20
[2023-08-30] MEDS: atorvastatin 40 mg Tablet 20 MG PO (21:13)
[2023-08-31] VITALS (14 sets, daily range): BP systolic 99–132; BP diastolic 65–78; PULSE 66–98; RESP 15–24; TEMP 36.4–36.8; O2SAT 93–96
[2023-08-31] MEDS: dilTIAZem 30 mg Tablet PO ×4 (03:31→21:29)
[2023-08-31] MEDS: meropenem 1,000 MG in sodium chloride 0.9% (plus) 50 ML 100 MG IV ×2 (03:31→16:57)
[2023-08-31] MEDS: ipratropium-albuterol 3 mL Neb INHALATION ×4 (03:43→21:23)
[2023-08-31 05:32] LABS: Basophils % 0.4 %; Eosinophils # 0.3 10^3/uL (0.0-0.8); Hematocrit 38.8 % (36-47); Lymphocytes # 1.8 10^3/uL (0.8-4.8); Lymphocytes % 16.6 %; Mean Corpuscular HGB Conc 29.9 g/dL (30-55); Mean Corpuscular Hemoglobin 28.8 pg (27-33); Mean Corpuscular Volume 96.3 fl (85-98); Mean Platelet Volume 9.5 fL (7.4-10.4); Monocytes # 1.1 10^3/uL (0.2-0.9); Monocytes % 9.9 %; Neutrophils # 7.37 10^3/uL (1.8-7.7); Neutrophils % 69.5 %; Nucleated Red Blood Cells % 0 %; Platelet Count 270 10^3/cmm (157-399); Red Blood Count 4.03 10^6/uL (3.85-5.65); Red Cell Distribution Width 14.1 % (12.1-15.1)
[2023-08-31 05:59] LABS: NT Pro B Type Natriuretic Pept 2587 pg/mL (0-450); Procalcitonin 0.08 ng/mL (0-0.5)
[2023-08-31 06:01] LABS: Alanine Aminotransferase 10 U/L (0-33); Albumin Level 3.6 g/dL (3.5-5.2); Alkaline Phosphatase 71 U/L (35-105); Aspartate Amino Transferase 12 U/L (0-32); Blood Urea Nitrogen 45 mg/dL (8-23); Carbon Dioxide 35 mmol/L (22-29); Chloride 94 mmol/L (98-107); Globulin 2.5 g/dL (1.3-4.6); Glucose 106 mg/dL (65-115); Osmolality Calculated 298 mOsm/kg (285-295); Phosphorus 4.5 mg/dL (2.5-4.5); Sodium 138 mmol/L (136-145); Total Bilirubin 0.5 mg/dL (0.15-1.2); Total Protein 6.1 g/dL (6.6-8.7)
[2023-08-31] MEDS: hydroCHLOROthiazide 25 mg Tablet PO (06:24)
[2023-08-31] MEDS: apixaban 5 mg Tablet PO ×2 (06:24→16:59)
[2023-08-31] MEDS: levothyroxine 125 mcg Tablet PO (06:25)
[2023-08-31] MEDS: lisinopril 20 mg Tablet 40 MG PO (10:06)
[2023-08-31] MEDS: pantoprazole DR 40 mg Tablet PO (10:06)
[2023-08-31] MEDS: metoprolol tartrate 50 mg Tablet 75 MG PO ×2 (10:06→16:59)
[2023-08-31] MEDS: benzonatate 100 mg Capsule PO (10:06)
[2023-08-31] MEDS: aspirin 81 mg EC Tablet PO (10:06)
[2023-08-31] MEDS: cloNIDine 0.1 mg Tablet PO ×2 (10:07→16:59)
--- NOTE | 2023-08-31 12:20 | PC.SOCIAL ---
IMM Update pg 2 of IMM updated and reviewed w/ patient. Copy provided and copy dated, initialed and placed in chart.
--- NOTE | 2023-08-31 13:31 | P.PN_ITS ---
Subjective 2 Subjective: Patient has shortness of breath. Renal function worsening noted Vitals/I&O/Wt Last Vital Signs Temp 97.6 F 08/31/23 12:00 Pulse 73 08/31/23 12:55 Resp 18 08/31/23 12:55 BP 132/76 08/31/23 12:00 Pulse Ox 95 08/31/23 12:55 O2 Del Method Nasal Cannula 08/31/23 12:55 O2 Flow Rate 3 08/31/23 12:55 FiO2 36 08/30/23 04:02 08/30/23 08/31/23 08/31/23 22:59 06:59 14:59 Intake Total 290 / 890 250 / 1140 Balance 290 / 890 250 / 1140 Weight last 48 hrs Weight 215 lb 8 oz Weight 211 lb 3 oz Physical Exam 2 Narrative: GENERAL: Patient is alert, awake and oriented x3. [] NECK: No jugular vein distension. [] HEENT: No cyanosis. No icterus. No pallor. [] HEART: Irregularly irregular LUNGS:Diminished air entry CENTRAL NERVOUS SYSTEM: Grossly nonfocal. [] EXTREMITIES: Lower extremities with 1+ edema bilaterally. [] Data 09/01/23 05:00 09/01/23 05:00 Micro: Microbiology 08/28/23 04:20 Urine Culture - Final Urine,Clean Catch A&P Assessment and plan (1) Atrial fibrillation with RVR: (2) Aortic stenosis: (3) Congestive heart failure: (4) PAD (peripheral artery disease): (5) Essential (primary) hypertension: (6) Mixed hyperlipidemia: (7) Mitral regurgitation: Plan Patient's renal function has worsened. Can hold her diuretic therapy today. Monitor kidney function. Will need further workup of mitral and aortic valve as outpatient. We will proceed with transesophageal echocardiogram at that point. Medical therapy for pneumonia per primary team Continue anticoagulation for stroke prevention. Heart rate is controlled. Thank you for involving us with care of this patient. We will continue to follow. Please call with questions Attestations 2 Medical Necessity Statement*: Care expected to cross 2 midnights. Coding Level of Care Code Acute Code for [facility] Fwd Diagnoses Atrial fibrillation with RVR I48.91 Aortic stenosis I35.0 Congestive heart failure I50.9 PAD (peripheral artery disease) I73.9 Essential (primary) hypertension I10 Mixed hyperlipidemia E78.2 Mitral regurgitation I34.0
--- NOTE | 2023-08-31 17:34 | P.PN_ITS ---
Subjective 2 Subjective: Patient was seen this morning, she tells me that she continues to feel weak fatigued and tired, no nausea, no vomiting, Vitals/I&O/Wt Last Vital Signs Temp 97.8 F 08/31/23 16:00 Pulse 84 08/31/23 16:00 Resp 18 08/31/23 16:00 BP 118/76 08/31/23 16:00 Pulse Ox 96 08/31/23 16:00 O2 Del Method Nasal Cannula 08/31/23 15:16 O2 Flow Rate 3 08/31/23 15:16 FiO2 36 08/30/23 04:02 08/31/23 08/31/23 08/31/23 06:59 14:59 22:59 Intake Total 250 / 1140 Balance 250 / 1140 Weight last 48 hrs Weight 97.749 kg Weight 95.793 kg Physical Exam 2 Const: COMMON NORMALS: no acute distress and patient oriented x3 Resp: COMMON NORMALS: normal respiratory effort, No retractions, No use of accessory muscles and clear to auscultation bilaterally AUSCULTATION: clear to auscultation bilaterally Cardio: COMMON NORMALS: regular rate, regular rhythm, S1 normal heart sound present and S2 normal heart sound present RATE: regular rate RHYTHM: r egular rhythm HEART SOUNDS: S1 normal heart sound present and S2 normal heart sound present GI: COMMON NORMALS: Normal to inspection, nondistended, normoactive bowel sounds present and non-tender Extremity: COMMON NORMALS: no pedal edema Neuro: COMMON NORMALS: patient oriented x3 Psych: COMMON NORMALS: mental status grossly normal Data 08/31/23 04:57 08/31/23 04:57 A&P Assessment and plan (1) Acute hypoxic on chronic hypercapnic respiratory failure: (2) Pneumonia: Qualifiers: Laterality: bilateral Lung location: unspecified part of lung P neumonia type: due to unspecified organism Qualified Code(s): J18.9 - Pneumonia, unspecified organism (3) Pleural effusion, right: (4) Atrial fibrillation with RVR: (5) Hypothyroidism: Qualifiers: Hypothyroidism type: unspecified Qualified Code(s): E03.9 - Hypothyroidism, unspecified (6) CKD (chronic kidney disease): (7) SOB (shortness of breath): (8) Breast cancer, left: (9) Systolic CHF: (10) Aortic stenosis: (11) Moderate pulmonary hypertension: Plan Acute hypoxic hypercarbic respiratory failure ?etiology: ? 1+ pitting edema, right pleural effusion, ? Cannot rule out underlying pneumonia ct angiogram -IMPRESSION: 1. Moderate right-sided and trace-small left-sided pleural effusions. 2. Right middle lobe atelectasis. Pulmonary clinic follow-up is recommended. Consider follow-up outpatient bronchoscopy. 3. No evidence of PE or acute aortic abnormality. 4. Mild dilation of the pulmonary trunk to 3.0 cm which can be seen with pulmonary arterial hypertension. ? Plan ? Continue BiPAP therapy, patient would clinically benefit from BiPAP therapy due to underlying diastolic CHF,fluid overload, elevated BNP ?monitor respiratory status closely ?continue DuoNeb -For now continue broad-spectrum antibiotic therapy, meropenem ? hold off on Lasix today, monitor respiratory status, overnight pulse ox -Has right pleural effusion, ultrasound thoracocentesis, has a history of left- sided breast cancer, not enough to drain as per radiology Aortic stenosis Severe, low gradient , normal flow aortic valve stenosis, mean gradient 7.9 mmHg, BEBETO 0.83 cm squared. Moderate pulomnary hypertension -will monitor closely -neeeds outpatient pulmonary follow up Right pleural effusion -Right pleural effusion thoracocentesis, ultrasound no significant fluid to drain ? Pleural fluid analysis A-fib with RVR ? A-fib likely difficult to control given aortic stenosis ? Currently heart rate well-controlled, ? Continue home metoprolol 75 twice daily -start cardizem 30mg q6hrs ?start eliquis NSTEMI ? No chest pain complaints, ? Serial EKGs, serial troponins, telemetry monitoring, eliquis DVT prophylaxis ?SCDs for DVT prophylaxis, full code Plan for today continue antibiotics, monitor respiratory status closely, monitor urine output, will consider further Lasix based on clinical progress,, creatinine up to 1.7 hold diuresis for today Attestations 2 Medical Necessity Statement*: Patient requires hospitalization for respiratory failure with hypercarbic respiratory failure, Diagnoses Acute hypoxic on chronic hypercapnic respiratory failure J96.01; J96.12 Pneumonia J18.9 Laterality: bilateral Lung location: unspecified part of lung Pneumonia type: due to unspecified organism Pleural effusion, right J90 Atrial fibrillation with RVR I48.91 Hypothyroidism, unspecified type E03.9 Hypothyroidism type: unspecified CKD (chronic kidney disease) N18.9 SOB (shortness of breath) R06.02 Breast cancer, left C50.912 Systolic CHF I50.20 Aortic stenosis I35.0 Moderate pulmonary hypertension I27.20
[2023-08-31] MEDS: atorvastatin 40 mg Tablet 20 MG PO (21:29)
[2023-09-01] VITALS (18 sets, daily range): BP systolic 100–110; BP diastolic 63–73; PULSE 62–118; RESP 15–22; TEMP 36.4–36.7; O2SAT 91–97
[2023-09-01] MEDS: ipratropium-albuterol 3 mL Neb INHALATION ×5 (00:23→19:34)
[2023-09-01 05:30] LABS: Basophils % 0.4 %; Eosinophils # 0.3 10^3/uL (0.0-0.8); Eosinophils % 4.1 %; Hematocrit 35.8 % (36-47); Lymphocytes # 1.9 10^3/uL (0.8-4.8); Lymphocytes % 24.3 %; Mean Corpuscular HGB Conc 30.2 g/dL (30-55); Mean Corpuscular Hemoglobin 28.6 pg (27-33); Mean Platelet Volume 9.2 fL (7.4-10.4); Monocytes # 0.8 10^3/uL (0.2-0.9); Monocytes % 9.9 %; Neutrophils # 4.71 10^3/uL (1.8-7.7); Neutrophils % 60.8 %; Nucleated Red Blood Cells % 0 %; Platelet Count 225 10^3/cmm (157-399); Red Blood Count 3.77 10^6/uL (3.85-5.65); White Blood Count 7.75 10^3/uL (3.29-11.43)
--- NOTE | 2023-09-01 05:42 | P.PN_ITS ---
Subjective 2 Subjective: Patient continues to have shortness of breath. Creatinine worsening Vitals/I&O/Wt Last Vital Signs Temp 97.8 F 09/01/23 04:00 Pulse 67 09/01/23 04:10 Resp 15 09/01/23 04:00 BP 104/63 09/01/23 04:00 Pulse Ox 96 09/01/23 04:10 O2 Del Method BiPAP 09/01/23 04:00 O2 Flow Rate 3 08/31/23 20:00 FiO2 30 09/01/23 04:10 08/31/23 08/31/23 09/01/23 14:59 22:59 06:59 Intake Total 770 / 770 Balance 770 / 770 Weight last 48 hrs Weight 215 lb 8 oz Physical Exam 2 Narrative: GENERAL: Patient is alert, awake and oriented x3. [] NECK: No jugular vein distension. [] HEENT: No cyanosis. No icterus. No pallor. [] HEART: Irregularly irregular LUNGS:Diminished air entry CENTRAL NERVOUS SYSTEM: Grossly nonfocal. [] EXTREMITIES: Lower extremities with 1+ edema bilaterally. [] Data 09/02/23 05:13 09/02/23 05:13 A&P Assessment and plan (1) Atrial fibrillation with RVR: (2) Aortic stenosis: (3) Congestive heart failure: (4) PAD (peripheral artery disease): (5) Essential (primary) hypertension: (6) Mixed hyperlipidemia: (7) Mitral regurgitation: Plan Hold diuretic therapy today as and function has worsened. Close I&O's. Monitor renal function. Workup of valve trial and aortic valve severity as outpatient. Management of pneumonia per primary team. Continue anticoagulation. Thank you for involving us with care of this patient. We will continue to follow. Please call with questions Attestations 2 Medical Necessity Statement*: Care expected to cross 2 midnights. Coding Level of Care Code Acute Code for [facility] Diagnoses Atrial fibrillation with RVR I48.91 Aortic stenosis I35.0 Congestive heart failure I50.9 PAD (peripheral artery disease) I73.9 Essential (primary) hypertension I10 Mixed hyperlipidemia E78.2 Mitral regurgitation I34.0
[2023-09-01 05:47] LABS: Alanine Aminotransferase 9 U/L (0-33); Albumin Level 3.2 g/dL (3.5-5.2); Alkaline Phosphatase 60 U/L (35-105); Anion Gap 14.2 (5-19); Aspartate Amino Transferase 11 U/L (0-32); Blood Urea Nitrogen 46 mg/dL (8-23); Calcium 7.6 mg/dL (8.5-10.5); Carbon Dioxide 31 mmol/L (22-29); Chloride 93 mmol/L (98-107); Globulin 2.5 g/dL (1.3-4.6); Glucose 100 mg/dL (65-115); Magnesium 2.1 mg/dL (1.7-2.3); Osmolality Calculated 290 mOsm/kg (285-295); Phosphorus 3.7 mg/dL (2.5-4.5); Potassium 4.2 mmol/L (3.5-5.1); Sodium 134 mmol/L (136-145); Total Bilirubin 0.4 mg/dL (0.15-1.2); Total Protein 5.7 g/dL (6.6-8.7)
[2023-09-01] MEDS: meropenem 1,000 MG in sodium chloride 0.9% (plus) 50 ML 100 MG IV (05:48)
[2023-09-01] MEDS: levothyroxine 125 mcg Tablet PO (05:49)
[2023-09-01] MEDS: hydroCHLOROthiazide 25 mg Tablet PO (05:49)
[2023-09-01] MEDS: dilTIAZem 30 mg Tablet PO ×4 (05:49→20:50)
[2023-09-01] MEDS: apixaban 5 mg Tablet PO ×2 (05:49→17:02)
[2023-09-01] MEDS: metoprolol tartrate 50 mg Tablet 75 MG PO ×2 (09:25→17:02)
[2023-09-01] MEDS: aspirin 81 mg EC Tablet PO (09:26)
[2023-09-01] MEDS: cloNIDine 0.1 mg Tablet PO ×2 (09:26→17:02)
[2023-09-01] MEDS: pantoprazole DR 40 mg Tablet PO (09:26)
[2023-09-01] MEDS: acetaminophen 325 mg Tablet 650 MG PO (09:28)
--- NOTE | 2023-09-01 15:39 | P.PN_ITS ---
Subjective 2 Subjective: Patient was seen this morning, she tells she did have a difficult night, but she was compliant with the BiPAP therapy, no creatinines up to 1.9, I stopped her hydrochlorothiazide and lisinopril, we discussed trying half a liter of IV fluid to help with her kidney function she tells me that she is has had kidney issues in the past, her primary care provider in the past has monitor kidney function closely he referred her to nephrology, but she never went due to scheduling issues Vitals/I&O/Wt Last Vital Signs Temp 97.6 F 09/01/23 11:51 Pulse 91 09/01/23 14:22 Resp 18 09/01/23 14:13 BP 107/70 09/01/23 11:51 Pulse Ox 94 09/01/23 14:13 O2 Del Method Nasal Cannula 09/01/23 14:13 O2 Flow Rate 3 09/01/23 14:13 FiO2 30 09/01/23 04:10 09/01/23 09/01/23 09/01/23 06:59 14:59 22:59 Intake Total 50 / 820 960 / 960 Balance 50 / 820 960 / 960 Weight last 48 hrs Weight 95.436 kg Weight 97.749 kg Physical Exam 2 Const: COMMON NORMALS: no acute distress and patient oriented x3 Resp: COMMON NORMALS: normal respiratory effort, No retractions, No use of accessory muscles and clear to auscultation bilaterally AUSCULTATION: clear to auscultation bilaterally Cardio: COMMON NORMALS: regular rate, regular rhythm, S1 normal heart sound present and S2 normal heart sound present RATE: regular rate RHYTHM: r egular rhythm HEART SOUNDS: S1 normal heart sound present and S2 normal heart sound present GI: COMMON NORMALS: Normal to inspection, nondistended, normoactive bowel sounds present and non-tender Extremity: COMMON NORMALS: no pedal edema Neuro: COMMON NORMALS: patient oriented x3 Psych: COMMON NORMALS: mental status grossly normal Data 09/01/23 05:00 09/01/23 05:00 A&P Assessment and plan (1) Acute hypoxic on chronic hypercapnic respiratory failure: (2) Pneumonia: Qualifiers: Laterality: bilateral Lung location: unspecified part of lung P neumonia type: due to unspecified organism Qualified Code(s): J18.9 - Pneumonia, unspecified organism (3) Pleural effusion, right: (4) Atrial fibrillation with RVR: (5) Hypothyroidism: Qualifiers: Hypothyroidism type: unspecified Qualified Code(s): E03.9 - Hypothyroidism, unspecified (6) CKD (chronic kidney disease): (7) SOB (shortness of breath): (8) Breast cancer, left: (9) Systolic CHF: (10) Aortic stenosis: (11) Moderate pulmonary hypertension: Plan Acute kidney injury on CKD, ? Creatinine 1.9, ? Stop lisinopril, stop hydrochlorothiazide?1 bag IV fluids, ? Lasix has been held for the last 48 hours Acute hypoxic hypercarbic respiratory failure ?etiology: ? None pitting edema, right pleural effusion, ? Cannot rule out underlying pneumonia ct angiogram -IMPRESSION: 1. Moderate right-sided and trace-small left-sided pleural effusions. 2. Right middle lobe atelectasis. Pulmonary clinic follow-up is recommended. Consider follow-up outpatient bronchoscopy. 3. No evidence of PE or acute aortic abnormality. 4. Mild dilation of the pulmonary trunk to 3.0 cm which can be seen with pulmonary arterial hypertension. ? Plan ? Continue BiPAP therapy, patient would clinically benefit from BiPAP therapy due to underlying diastolic CHF,fluid overload, elevated BNP ?monitor respiratory status closely ?continue DuoNeb -For now continue broad-spectrum antibiotic therapy, meropenem ? hold off on Lasix today, monitor respiratory status, overnight pulse ox -Has right pleural effusion, ultrasound thoracocentesis, has a history of left- sided breast cancer, not enough to drain as per radiology Aortic stenosis Severe, low gradient , normal flow aortic valve stenosis, mean gradient 7.9 mmHg, BEBETO 0.83 cm squared. Moderate pulomnary hypertension -will monitor closely -neeeds outpatient pulmonary follow up Right pleural effusion -Right pleural effusion thoracocentesis, ultrasound no significant fluid to drain ? Pleural fluid analysis A-fib with RVR ? A-fib likely difficult to control given aortic stenosis ? Currently heart rate well-controlled, ? Continue home metoprolol 75 twice daily -start cardizem 30mg q6hrs ?start eliquis NSTEMI ? No chest pain complaints, ? Serial EKGs, serial troponins, telemetry monitoring, eliquis DVT prophylaxis ?SCDs for DVT prophylaxis, full code Plan for today continue antibiotics, monitor respiratory status closely, monitor urine output, will consider further Lasix based on clinical progress,, creatinine up to 1.7 hold diuresis for today Attestations 2 Medical Necessity Statement*: Patient requires hospitalization for respiratory failure, now TANJA Diagnoses Acute hypoxic on chronic hypercapnic respiratory failure J96.01; J96.12 Pneumonia J18.9 Laterality: bilateral Lung location: unspecified part of lung Pneumonia type: due to unspecified organism Pleural effusion, right J90 Atrial fibrillation with RVR I48.91 Hypothyroidism, unspecified type E03.9 Hypothyroidism type: unspecified CKD (chronic kidney disease) N18.9 SOB (shortness of breath) R06.02 Breast cancer, left C50.912 Systolic CHF I50.20 Aortic stenosis I35.0 Moderate pulmonary hypertension I27.20
[2023-09-01] MEDS: sodium chloride 0.9% 500 ML 50 ML IV (16:49)
[2023-09-01] MEDS: atorvastatin 40 mg Tablet 20 MG PO (20:50)
[2023-09-02] VITALS (20 sets, daily range): BP systolic 104–131; BP diastolic 65–89; PULSE 58–93; RESP 15–22; TEMP 36.3–36.4; O2SAT 79–98
[2023-09-02] MEDS: ipratropium-albuterol 3 mL Neb INHALATION ×4 (02:06→20:34)
[2023-09-02] MEDS: dilTIAZem 30 mg Tablet PO ×4 (04:48→21:07)
[2023-09-02] MEDS: apixaban 5 mg Tablet PO (04:49)
[2023-09-02] MEDS: levothyroxine 125 mcg Tablet PO (04:49)
--- NOTE | 2023-09-02 04:59 | PC.NURSE ---
Attempt to get urine output measurement via hat in toilet, but for both voids, patient missed hat. Patient refuses bedside commode.
[2023-09-02 05:28] LABS: Basophils % 0.5 %; Eosinophils # 0.3 10^3/uL (0.0-0.8); Eosinophils % 3.6 %; Mean Corpuscular Hemoglobin 28.4 pg (27-33); Mean Corpuscular Volume 94.5 fl (85-98); Mean Platelet Volume 9.3 fL (7.4-10.4); Monocytes # 0.8 10^3/uL (0.2-0.9); Monocytes % 10.3 %; Neutrophils % 60.1 %; Nucleated Red Blood Cells % 0 %; Platelet Count 229 10^3/cmm (157-399); Red Blood Count 4.02 10^6/uL (3.85-5.65); Red Cell Distribution Width 14.1 % (12.1-15.1); White Blood Count 7.99 10^3/uL (3.29-11.43)
[2023-09-02 05:48] LABS: Alanine Aminotransferase 9 U/L (0-33); Albumin Level 3.5 g/dL (3.5-5.2); Alkaline Phosphatase 63 U/L (35-105); Anion Gap 14.1 (5-19); Aspartate Amino Transferase 12 U/L (0-32); Blood Urea Nitrogen 48 mg/dL (8-23); Calcium 7.3 mg/dL (8.5-10.5); Carbon Dioxide 30 mmol/L (22-29); Chloride 88 mmol/L (98-107); Globulin 2.6 g/dL (1.3-4.6); Glucose 94 mg/dL (65-115); Osmolality Calculated 278 mOsm/kg (285-295); Potassium 4.1 mmol/L (3.5-5.1); Sodium 128 mmol/L (136-145); Total Bilirubin 0.4 mg/dL (0.15-1.2); Total Protein 6.1 g/dL (6.6-8.7)
[2023-09-02] MEDS: cloNIDine 0.1 mg Tablet PO ×2 (09:47→18:43)
[2023-09-02] MEDS: aspirin 81 mg EC Tablet PO (09:47)
[2023-09-02] MEDS: pantoprazole DR 40 mg Tablet PO (09:47)
[2023-09-02] MEDS: metoprolol tartrate 50 mg Tablet 75 MG PO ×2 (09:48→18:44)
--- NOTE | 2023-09-02 11:39 | P.PN_ITS ---
Subjective 2 Subjective: Patient continues having shortness of breath. No chest pain Vitals/I&O/Wt Last Vital Signs Temp 97.4 F L 09/02/23 07:34 Pulse 76 09/02/23 08:57 Resp 18 09/02/23 08:57 BP 125/80 09/02/23 09:47 Pulse Ox 98 09/02/23 08:57 O2 Del Method Nasal Cannula 09/02/23 08:57 O2 Flow Rate 3 09/02/23 08:57 FiO2 30 09/02/23 04:00 09/01/23 09/02/23 09/02/23 22:59 06:59 14:59 Intake Total 480 / 1440 700 / 2140 480 / 480 Balance 480 / 1440 700 / 2140 480 / 480 Weight last 48 hrs Weight 218 lb 5 oz Weight 210 lb 6.4 oz Physical Exam 2 Narrative: GENERAL: Patient is alert, awake and oriented x3. [] NECK: No jugular vein distension. [] HEENT: No cyanosis. No icterus. No pallor. [] HEART: Irregularly irregular LUNGS:Diminished air entry CENTRAL NERVOUS SYSTEM: Grossly nonfocal. [] EXTREMITIES: Lower extremities with 1+ edema bilaterally. [] Data 09/04/23 05:52 09/04/23 05:52 A&P Assessment and plan (1) Atrial fibrillation with RVR: (2) Aortic stenosis: (3) Congestive heart failure: (4) PAD (peripheral artery disease): (5) Essential (primary) hypertension: (6) Mixed hyperlipidemia: (7) Mitral regurgitation: Plan Keep holding dirurtics for now. Workup of valve trial and aortic valve severity as outpatient. Management of pneumonia per primary team. Continue anticoagulation. Thank you for involving us with care of this patient. We will continue to follow. Please call with questions Attestations 2 Medical Necessity Statement*: Care expected to cross 2midnights. Coding Level of Care Code Acute Code for [facility] Diagnoses Atrial fibrillation with RVR I48.91 Aortic stenosis I35.0 Congestive heart failure I50.9 PAD (peripheral artery disease) I73.9 Essential (primary) hypertension I10 Mixed hyperlipidemia E78.2 Mitral regurgitation I34.0
--- NOTE | 2023-09-02 15:39 | XRR_ITS ---
PROCEDURE INFORMATION: Exam: XR Chest Exam date and time: 09/02/2023 5:37 PM Age: 82 years old Clinical indication: Shortness of breath; Patient HX: SOB; Congestion TECHNIQUE: Imaging protocol: Radiologic exam of the chest. Views: 1 view. COMPARISON: CR (CHEST, ) 08/28/2023 8:49 AM FINDINGS: Lungs: Large right-sided pleural effusion with passive atelectasis of most of the right lung. There is partial aeration of the right upper lobe. Left lung is grossly clear. Pleural spaces: Large right-sided pleural effusion. Heart/Mediastinum: Cardiomediastinal silhouette is within normal limits. Bones/joints: No evidence of acute osseous abnormality. Stimulator leads are noted projecting over the lower thoracic spine. XR/XR chest 1V portable [id number] IMPRESSION: 1. Large right-sided pleural effusion.
[2023-09-02 15:53] LABS: ABG PCO2 56.8 mmHg (35-45); ABG PH Result 7.35 (7.35-7.45); Alveolar-Arterial Oxygen Gradi 11.2 mmHg (5-10); Arterial Blood Gas Hematocrit 35.6 % (37-47); Blood Gas Operator Identificat AMH; Blood Gas Sample Site Brachial, right; Blood Gas Sample Type Arterial; Carboxyhemoglobin 1.7 %THgb (0.4-20.1); HGB O2 Sat 94.1 % (95-100); Methemoglobin 0.4 % (0.4-1.5); Oxygen Device NC; Oxygen Saturation ABG 96.1; PO2 ABG 73.3 mmHg (80.0-100.0); PO2 FiO2 Ratio Arterial Blood 0; Potassium Level - ABG 4.1 mmol/L (3.5-5.0); Total Hemoglobin 11.6 g/dL (12-16)
--- NOTE | 2023-09-02 16:25 | P.PN_ITS ---
Subjective 2 Subjective: Patient was seen this morning, she alert oriented x 3, has no complaints, we discussed her creatinine still being elevated, she received fluid, but is come down to 1.8, now she is becoming a bit hyponatremic we will have to watch her serum sodium, she does complain of shortness of breath, on examination he does not appear to be in respiratory distress, will continue to monitor throughout the morning, patient was seen in the afternoon she complains that she is aching all over repeat ABG shows hypercarbia will place her back on BiPAP repeat chest x-ray, and blood work, will decide if we give her Lasix in the evening based upon her potassium, sodium, her creatinine Vitals/I&O/Wt Last Vital Signs Temp 97.4 F L 09/02/23 15:45 Pulse 79 09/02/23 16:05 Resp 16 09/02/23 15:45 BP 130/81 09/02/23 15:45 Pulse Ox 95 09/02/23 16:05 O2 Del Method Nasal Cannula 09/02/23 15:45 O2 Flow Rate 3 09/02/23 14:57 FiO2 30 09/02/23 16:05 09/02/23 09/02/23 09/02/23 06:59 14:59 22:59 Intake Total 700 / 2140 960 / 960 Balance 700 / 2140 960 / 960 Weight last 48 hrs Weight 99.025 kg Weight 95.436 kg Physical Exam 2 Const: COMMON NORMALS: no acute distress and patient oriented x3 Neck/C-Spine: COMMON NORMALS: no JVD Resp: COMMON NORMALS: normal respiratory effort, No retractions and No use of accessory muscles AUSCULTATION: wheezes Cardio: COMMON NORMALS: no JVD, regular rate, regular rhythm, S1 normal heart sound present and S2 normal heart sound present RATE: regular rate RHYTHM: regular rhythm HEART SOUNDS: S1 normal heart sound present and S2 normal heart sound present GI: COMMON NORMALS: Normal to inspection, nondistended, normoactive bowel sounds present and non-tender Extremity: COMMON NORMALS: no pedal edema Neuro: COMMON NORMALS: patient oriented x3 Psych: COMMON NORMALS: mental status grossly normal Data 09/02/23 05:13 09/02/23 05:13 A&P Assessment and plan (1) Acute hypoxic on chronic hypercapnic respiratory failure: (2) Pneumonia: Qualifiers: Laterality: bilateral Lung location: unspecified part of lung P neumonia type: due to unspecified organism Qualified Code(s): J18.9 - Pneumonia, unspecified organism (3) Pleural effusion, right: (4) Atrial fibrillation with RVR: (5) Hypothyroidism: Qualifiers: Hypothyroidism type: unspecified Qualified Code(s): E03.9 - Hypothyroidism, unspecified (6) CKD (chronic kidney disease): (7) SOB (shortness of breath): (8) Breast cancer, left: (9) Systolic CHF: (10) Aortic stenosis: (11) Moderate pulmonary hypertension: Plan Acute kidney injury on CKD, ? Creatinine 1.8, ? Stop lisinopril, stop hydrochlorothiazide ?s/p 1 bag IV fluids, ? Lasix has been held for the last 48 hours Acute hypoxic hypercarbic respiratory failure ?etiology: ? None pitting edema, right pleural effusion, ? Cannot rule out underlying pneumonia ct angiogram -IMPRESSION: 1. Moderate right-sided and trace-small left-sided pleural effusions. 2. Right middle lobe atelectasis. Pulmonary clinic follow-up is recommended. Consider follow-up outpatient bronchoscopy. 3. No evidence of PE or acute aortic abnormality. 4. Mild dilation of the pulmonary trunk to 3.0 cm which can be seen with pulmonary arterial hypertension. ? Plan ? Continue BiPAP therapy, patient would clinically benefit from BiPAP therapy due to underlying diastolic CHF,fluid overload, elevated BNP ?monitor respiratory status closely ?continue DuoNeb -For now continue broad-spectrum antibiotic therapy, completed, dc vancomycin and meropenem ? hold off on Lasix today, monitor respiratory status, overnight pulse ox -Has right pleural effusion, ultrasound thoracocentesis, has a history of left- sided breast cancer, not enough to drain as per radiology Aortic stenosis Severe, low gradient , normal flow aortic valve stenosis, mean gradient 7.9 mmHg, BEBETO 0.83 cm squared. Moderate pulomnary hypertension -will monitor closely -neeeds outpatient pulmonary follow up Right pleural effusion -Right pleural effusion thoracocentesis, ultrasound no significant fluid to drain ? Pleural fluid analysis A-fib with RVR ? A-fib likely difficult to control given aortic stenosis ? Currently heart rate well-controlled, ? Continue home metoprolol 75 twice daily -start cardizem 30mg q6hrs ?start eliquis NSTEMI ? No chest pain complaints, ? Serial EKGs, serial troponins, telemetry monitoring, eliquis DVT prophylaxis ?SCDs for DVT prophylaxis, full code Plan for today repeat blood work this afternoon decide on further doses of Lasix based on sodium, creatinine Attestations 2 Medical Necessity Statement*: Patient requires hospitalization for TANJA, respiratory failure Diagnoses Acute hypoxic on chronic hypercapnic respiratory failure J96.01; J96.12 Pneumonia J18.9 Laterality: bilateral Lung location: unspecified part of lung Pneumonia type: due to unspecified organism Pleural effusion, right J90 Atrial fibrillation with RVR I48.91 Hypothyroidism, unspecified type E03.9 Hypothyroidism type: unspecified CKD (chronic kidney disease) N18.9 SOB (shortness of breath) R06.02 Breast cancer, left C50.912 Systolic CHF I50.20 Aortic stenosis I35.0 Moderate pulmonary hypertension I27.20
[2023-09-02 17:31] LABS: Basophils % 0.5 %; Eosinophils # 0.2 10^3/uL (0.0-0.8); Eosinophils % 2.4 %; Hematocrit 35.8 % (36-47); Lymphocytes # 1.1 10^3/uL (0.8-4.8); Lymphocytes % 13.3 %; Mean Corpuscular HGB Conc 30.7 g/dL (30-55); Mean Corpuscular Hemoglobin 29.2 pg (27-33); Mean Platelet Volume 9.5 fL (7.4-10.4); Monocytes # 0.7 10^3/uL (0.2-0.9); Neutrophils # 5.98 10^3/uL (1.8-7.7); Neutrophils % 74.4 %; Nucleated Red Blood Cells % 0 %; Platelet Count 213 10^3/cmm (157-399); Red Blood Count 3.77 10^6/uL (3.85-5.65); White Blood Count 8.03 10^3/uL (3.29-11.43)
[2023-09-02 18:00] LABS: Anion Gap 14.5 (5-19); Blood Urea Nitrogen 46 mg/dL (8-23); Calcium 7.5 mg/dL (8.5-10.5); Carbon Dioxide 28 mmol/L (22-29); Chloride 88 mmol/L (98-107); Glucose 116 mg/dL (65-115); Magnesium 2.1 mg/dL (1.7-2.3); NT Pro B Type Natriuretic Pept 2866 pg/mL (0-450); Osmolality Calculated 275 mOsm/kg (285-295); Potassium 4.5 mmol/L (3.5-5.1); Sodium 126 mmol/L (136-145)
[2023-09-02] MEDS: acetaminophen 325 mg Tablet 650 MG PO (18:43)
[2023-09-02] MEDS: methylPREDNISolone sod succ 125 mg/2 mL INJ IVP (18:43)
[2023-09-02] MEDS: sodium chloride 1 gm Tablet PO (18:49)
[2023-09-02] MEDS: meropenem 1,000 MG in sodium chloride 0.9% (plus) 50 ML 100 MG IV (18:49)
[2023-09-02] MEDS: morphine 4 mg/mL SDV 1 mL 1 MG IVP (20:27)
[2023-09-02] MEDS: atorvastatin 40 mg Tablet 20 MG PO (20:30)
[2023-09-02] MEDS: acetylcysteine 200 mg/mL SDV 4 mL 100 MG INHALATION (20:34)
--- NOTE | 2023-09-02 22:02 | XRR_ITS ---
PROCEDURE INFORMATION: Exam: XR Chest Exam date and time: 09/02/2023 9:53 PM Age: 82 years old Clinical indication: Other: F/u pleural effusion; Prior surgery; Surgery date: 6+ months; Surgery type: Thyroid. Lumpectomy. Stimulator; Patient HX: Four hr f/u RT pleural effusion. Now on bipap. ; Additional info: Right lung collapse, aspiration? TECHNIQUE: Imaging protocol: Radiologic exam of the chest. Views: 1 view. COMPARISON: CR (CHEST, ) 09/02/2023 5:37 PM FINDINGS: Lungs: No focal consolidation . There are hazy opacities in the left lung base compatible with atelectasis versus developing infection in the proper clinical setting. Pleural spaces: Large right-sided pleural effusion, similar to prior radiographs. No evidence of pneumothorax. No evidence of left-sided effusion. Heart/Mediastinum: The right heart border is obscured. There is prominence of the pulmonary contour suggesting pulmonary arterial hypertension. Bones/joints: No evidence of acute osseous abnormality. Neurostimulator leads noted projecting over the thoracic spine. XR/XR chest 1V portable [id number] IMPRESSION: 1. Large right-sided pleural effusion with only partial aeration of the right upper lobe and passive atelectasis of the right lower and middle lobes. 2. Hazy opacities in the left lung base compatible with atelectasis versus developing infection in the proper clinical setting.
[2023-09-02 22:03] LABS: Sodium 126 mmol/L (136-145)
[2023-09-03] VITALS (16 sets, daily range): BP systolic 113–141; BP diastolic 73–85; PULSE 68–102; RESP 15–24; TEMP 36.4–36.8; O2SAT 34–96; BMI 39.0
[2023-09-03] MEDS: acetylcysteine 200 mg/mL SDV 4 mL 100 MG INHALATION ×4 (02:24→20:13)
[2023-09-03] MEDS: ipratropium-albuterol 3 mL Neb INHALATION ×4 (02:24→20:13)
[2023-09-03 03:23] LABS: Basophils % 0.1 %; Lymphocytes # 0.5 10^3/uL (0.8-4.8); Lymphocytes % 7.7 %; Mean Corpuscular HGB Conc 30.5 g/dL (30-55); Mean Corpuscular Hemoglobin 28.3 pg (27-33); Mean Corpuscular Volume 92.6 fl (85-98); Mean Platelet Volume 10.2 fL (7.4-10.4); Monocytes # 0.1 10^3/uL (0.2-0.9); Neutrophils # 6.32 10^3/uL (1.8-7.7); Neutrophils % 90.5 %; Nucleated Red Blood Cells % 0 %; Platelet Count 265 10^3/cmm (157-399); Red Blood Count 4.21 10^6/uL (3.85-5.65); Red Cell Distribution Width 13.8 % (12.1-15.1); White Blood Count 6.99 10^3/uL (3.29-11.43)
[2023-09-03 03:45] LABS: Sodium 126 mmol/L (136-145)
[2023-09-03 03:50] LABS: Alanine Aminotransferase 9 U/L (0-33); Albumin Level 3.9 g/dL (3.5-5.2); Alkaline Phosphatase 74 U/L (35-105); Anion Gap 18.4 (5-19); Aspartate Amino Transferase 13 U/L (0-32); Blood Urea Nitrogen 43 mg/dL (8-23); C Reactive Protein 4.8 mg/L (0.0-4.9); Calcium 7.4 mg/dL (8.5-10.5); Carbon Dioxide 27 mmol/L (22-29); Chloride 88 mmol/L (98-107); Globulin 2.4 g/dL (1.3-4.6); Glucose 145 mg/dL (65-115); Magnesium 2.2 mg/dL (1.7-2.3); Osmolality Calculated 279 mOsm/kg (285-295); Phosphorus 3.6 mg/dL (2.5-4.5); Potassium 5.4 mmol/L (3.5-5.1); Sodium 128 mmol/L (136-145); Total Bilirubin 0.5 mg/dL (0.15-1.2); Total Protein 6.3 g/dL (6.6-8.7)
[2023-09-03 03:59] LABS: NT Pro B Type Natriuretic Pept 3617 pg/mL (0-450); Sodium 128 mmol/L (136-145)
[2023-09-03] MEDS: dilTIAZem 30 mg Tablet PO ×4 (04:58→21:26)
[2023-09-03] MEDS: levothyroxine 125 mcg Tablet PO (05:00)
[2023-09-03] MEDS: meropenem 1,000 MG in sodium chloride 0.9% (plus) 50 ML 100 MG IV ×2 (05:00→17:44)
--- NOTE | 2023-09-03 06:00 | XR_ITS ---
WS: [id number] CHEST XRAY TECHNIQUE: Portable chest. CLINICAL INFORMATION: sob COMPARISON: 09/02/2023. FINDINGS: Heart: Cardiomegaly. Lungs: Opacification RIGHT hemithorax with pleural fluid and consolidated lung. This is unchanged com pared to 09/02/2023. LEFT lung is well aerated. Evidence of volume loss RIGHT upper lobe with left-righ t mediastinal shift. Bones: Osteopenia. Spinal stimulator. LEFT axillary clips. IMPRESSION: No significant changes since 09/02/2023.
--- NOTE | 2023-09-03 06:00 | US_ITS ---
WS: [id number] ULTRASOUND CHEST INDICATION: Pleural effusion TECHNIQUE: Ultrasound chest FINDINGS: No significant LEFT pleural fluid. Small amount of free-flowing RIGHT pleural fluid with at electatic lung in the RIGHT lower lobe. This is similar to the prior ultrasound 08/28/2023 IMPRESSION: See above
[2023-09-03] MEDS: morphine 4 mg/mL SDV 1 mL 1 MG IVP ×2 (10:17→21:30)
[2023-09-03] MEDS: pantoprazole DR 40 mg Tablet PO (10:18)
[2023-09-03] MEDS: metoprolol tartrate 50 mg Tablet 75 MG PO ×2 (10:18→17:44)
[2023-09-03] MEDS: cloNIDine 0.1 mg Tablet PO ×2 (10:18→17:44)
[2023-09-03] MEDS: sodium chloride 1 gm Tablet PO ×2 (10:18→17:44)
--- NOTE | 2023-09-03 11:58 | PM.CONSULT ---
Providers/Reason For Consult Consulting Physician/Specialty*: Galo Mendez MD/pulmonary critical care Reason for Consult*: Complete opacification of right hemithorax-suspect complete atelectasis Requesting Physician: Dilan Rivero MD Attending Physician: Dilan Rivero MD Primary Care Provider: Jo Ledezma MD History of Present Illness History of Present Illness Kelley Quezada is a 82 year old female past medical history of left breast cancer, hypertension, hyperlipidemia, presented to [facility] on 08/27/2022 due to shortness of breath. She is found to have hypercarbic hypoxic respiratory failure placed on BiPAP. She received 7-day course of vancomycin and meropenem. So far cultures are negative. No leukocytosis. Patient has been afebrile. CTA 08/27/2023 showed moderate right-sided and trace small left pleural effusions. Right middle lobe atelectasis. No evidence of PE. Chest ultrasound did not reveal sufficient fluid for thoracic disease on 08/28/2023 and again 09/03/2023. There is a gradual worsening of right-sided consolidation on chest x-rays. There is no significant improvement with chest vest therapy and hypertonic saline, Mucomyst nebulization Pulmonary consult requested for bronchoscopy for airway inspection and therapeutic clearance of mucous plugging. Seen patient at bedside-currently patient is on 3 L nasal cannula, not in significant respiratory distress, lying down in her bed. Tells me she was not on oxygen prior to hospitalization. 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 Positive for metastatic infiltrating lobular carcinoma. Patient was started on Xeloda-however stopped due to severe nausea and diarrhea and numbness. She underwent postlumpectomy radiation to right breast February 2019. She was diagnosed with left breast cancer in March 2022 and has a ductal carcinoma grade 2; ER positive, NC positive HER2 negative underwent left lumpectomy with sentinel node biopsy-started on Arimidex 1 Mg p.o. daily with vitamin D and calcium for 5 years. Arimidex was changed to letrozole in February 2023 due to complaint of palpitations. She was also found to have new onset A-fib with RVR, currently heart rates are well-controlled, denies a prior history of atrial fibrillation. Held Eliquis 2 days ago for anticipation of thoracentesis. Patient is on metoprolol 75 Mg p.o. twice daily and Cardizem 30 Mg p.o. every 6 hours. Reported that she used tobacco several years ago Review of Systems General: Reports: 10 or more systems reviewed and unremarkable except in HPI and below Medications/Allergies Home Medications Medication Instructions Recorded Confirmed Last Taken Type ascorbic acid (vitamin C) 1,000 mg 1,000 mg PO DAILY 09/09/19 08/27/23 06/14/22 History tablet calcium carbonate 600 mg calcium 600 mg PO DAILY 08/09/22 08/27/23 Unknown History (1,500 mg) tablet (Calcium) albuterol sulfate 2.5 mg/3 mL 2.5 mg (3 mL) inhalation QID PRN 06/06/23 08/27/23 Unknown Rx (0.083 %) solution for nebulization shortness of breath or wheezing #90 mL cefdinir 300 mg capsule 300 mg PO BID 10 days #20 caps 08/24/23 08/27/23 08/27/23 Rx ondansetron HCl 4 mg tablet 4 mg PO Q6H PRN nausea and 08/24/23 08/27/23 Unknown Rx vomiting #30 tabs prednisone 20 mg tablet 20 mg PO BID 5 days #10 tabs 08/24/23 08/27/23 08/27/23 Rx chlordiazepoxide HCl 10 mg capsule 10 mg PO BEDTIME 08/27/23 08/27/23 Unknown History clonidine HCl 0.1 mg tablet 0.1 mg PO BID 08/27/23 08/27/23 Unknown History hydrochlorothiazide 25 mg tablet 25 mg PO QAM 08/27/23 08/27/23 08/27/23 History letrozole 2.5 mg tablet 2.5 mg PO DAILY 08/27/23 08/27/23 Unknown History levothyroxine 125 mcg tablet 125 mcg PO QAM 08/27/23 08/27/23 08/27/23 History lisinopril 40 mg tablet 40 mg PO BID 08/27/23 08/27/23 08/27/23 History lovastatin 20 mg tablet 40 mg PO DAILY 08/27/23 08/27/23 Unknown History metoprolol tartrate 50 mg tablet 75 mg PO BID 08/27/23 08/27/23 Unknown History omeprazole 40 mg capsule,delayed 40 mg PO DAILY 08/27/23 08/27/23 Unknown History release Allergies Allergy/AdvReac Type Severity Reaction Status Date / Time adhesive Allergy Intermediate ALGY-Bliste Verified 08/27/23 13:54 r clarithromycin [From Biaxin] Allergy Intermediate thrush Verified 08/27/23 13:54 Penicillins Allergy Unknown Unknown Verified 08/27/23 13:54 Current Medications Generic Name Dose Route Start Last Admin Trade Name Freq PRN Reason Stop Dose Admin Acetaminophen 650 mg 08/27/23 18:18 09/02/23 18:43 Acetaminophen 325 Mg Tablet PO 650 mg Q6H PRN Administration Mild/Mod Pain Or Temp >/= 101 Acetylcysteine 100 mg 09/02/23 20:00 09/03/23 09:20 Acetylcysteine 200 Mg/Ml Sdv 4 Ml INHALATION 100 mg Q6H.RESP ABHAY Administration Albuterol/Ipratropium 3 ml 09/01/23 14:00 09/03/23 09:21 Ipratropium-Albuterol 3 Ml Neb INHALATION 3 ml Q6H.RESP ABHAY Administration Apixaban 5 mg 08/28/23 16:45 09/02/23 04:49 Apixaban 5 Mg Tablet PO 5 mg Q12H ABHAY Administration Aspirin 81 mg 08/28/23 18:00 09/02/23 09:47 Aspirin 81 Mg Ec Tablet PO 81 mg DAILY ABHAY Administration Atorvastatin Calcium 20 mg 08/27/23 21:00 09/02/23 20:30 Atorvastatin 40 Mg Tablet PO 20 mg BEDTIME ABHAY Administration Benzonatate 100 mg 08/30/23 09:34 08/31/23 10:06 Benzonatate 100 Mg Capsule PO 100 mg TID PRN Administration COUGH Clonidine HCl 0.1 mg 08/27/23 18:18 09/03/23 10:18 Clonidine 0.1 Mg Tablet PO 0.1 mg BID ABHAY Administration Diltiazem HCl 30 mg 08/29/23 10:00 09/03/23 10:19 Diltiazem 30 Mg Tablet PO 30 mg Q6H ABHAY Administration Meropenem 1,000 mg/ Sodium 50 mls @ 100 mls/hr 09/02/23 18:00 09/03/23 05:36 Chloride IV Infused Q12H ABHAY Infusion Protocol Levothyroxine Sodium 125 mcg 08/28/23 06:00 09/03/23 05:00 Levothyroxine 125 Mcg Tablet PO 125 mcg QAM ABHAY Administration Metoprolol Tartrate 75 mg 08/27/23 18:18 09/03/23 10:18 Metoprolol Tartrate 50 Mg Tablet PO 75 mg BID ABHAY Administration Morphine Sulfate 1 mg 09/02/23 16:29 09/03/23 10:17 Morphine 4 Mg/Ml Sdv 1 Ml IVP 1 mg Q4H PRN Administration SEVERE PAIN Non-Formulary Medication 2.5 mg 08/28/23 09:00 09/03/23 09:30 Letrozole PO Not Given DAILY ABHAY Pantoprazole Sodium 40 mg 08/28/23 09:00 09/03/23 10:[address] 40 Mg Tablet PO 40 mg DAILY ABHAY Administration Sodium Chloride 4 ml 09/02/23 20:00 09/03/23 09:21 Sodium Chloride 3.5% Neb 4 Ml Neb INHALATION Not Given BID.RESPIRATORY ABHAY Sodium Chloride 1 gm 09/02/23 18:05 09/03/23 10:18 Sodium Chloride 1 Gm Tablet PO 1 gm BID ABHAY Administration PFSH Acute PFSH: Medical History Osteoporosis Gout History of right shoulder fracture Breast cancer, left 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 Nu Hubbard [facility] Family History Sister Cancer Breast Other Family history non-contributory Suicide Denies family history of Diabetes CAD (coronary artery disease) Clotting disorder Dementia Hyperlipidemia Psychiatric illness Chronic kidney disease (CKD) Anesthesia complication Bleeding disorder Lung disease Hypertension Stroke Social History Smoking and tobacco/nicotine status: former use of tobacco/nicotine Quit status (tobacco/nicotine): has quit using Year quit tobacco: in 20's Former quit date comment: Not sure of quit date Second hand smoke exposure: No Alcohol intake: never Substance/Drug Use: never Caregiver/support person: Yes Lives independently: Yes Household members: spouse Marital status: Current occupational status: retired Current gender identity: Female Special temi needs: No Agree to transfusion: Yes Vitals/I&O/Wt Last Vital Signs Temp 97.6 F 09/03/23 08:00 Pulse 102 H 09/03/23 09:47 Resp 18 09/03/23 10:17 BP 123/85 09/03/23 10:18 Pulse Ox 93 09/03/23 09:47 O2 Del Method Nasal Cannula 09/03/23 08:00 O2 Flow Rate 3 09/03/23 08:00 FiO2 40 09/03/23 09:47 09/02/23 09/03/23 09/03/23 22:59 06:59 14:59 Intake Total 530 / 1490 50 / 1540 Output Total 300 / 300 Balance 530 / 1490 -250 / 1240 Weight last 48 hrs Weight 220 lb 6.4 oz Weight 218 lb 5 oz Physical Exam Narrative: General: alert, NAD HEENT: conj clear, EOMI, PERRL, mmm, Neck: supple, no meningismus Heme: no cervical LAP Respiratory: Inspection: No visible deformity of the chest wall Palpation: Trachea is mildly deviated to the right, bilateral symmetric expansion Percussion: Bilateral tympanic percussion note both anterior and posteriorly Auscultation: Reduced breath sounds on right side Cardiovascular: rrr, nl s1s2, no mrg Abdomen: soft, nt, nd, no r/g, bs+ Extremities: pulses +, no edema, no c/c : no CVA tenderness Skin: intact, no rash MSK: no back or neck pain Neurologic: grossly intact Data 09/03/23 02:05 09/03/23 12:38 Other Labs: Radiology Impressions Chest CTA 08/27/23 15:41 IMPRESSION: 1. Moderate right-sided and trace-small left-sided pleural effusions. 2. Right middle lobe atelectasis. Pulmonary clinic follow-up is recommended. Consider follow-up outpatient bronchoscopy. 3. No evidence of PE or acute aortic abnormality. 4. Mild dilation of the pulmonary trunk to 3.0 cm which can be seen with pulmonary arterial hypertension. 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 Correlation with nuclear medicine bone scan or PET-CT is recommended. Findings discussed with Dr. Villar at 8:30 p.m. on 08/27/2023 Laboratory Results WBC 6.99 10^3/uL (3.29-11.43) 09/03/23 02:05 RBC 4.21 10^6/uL (3.85-5.65) 09/03/23 02:05 Hgb 11.90 g/dL (11.27-16.99) 09/03/23 02:05 Hct 39.0 % (36-47) 09/03/23 02:05 MCV 92.6 fl (85-98) 09/03/23 02:05 MCH 28.3 pg (27-33) 09/03/23 02:05 MCHC 30.5 g/dL (30-55) 09/03/23 02:05 RDW 13.8 % (12.1-15.1) 09/03/23 02:05 Plt Count 265 10^3/cmm (157-399) 09/03/23 02:05 MPV 10.2 fL (7.4-10.4) 09/03/23 02:05 Neut % (Auto) 90.5 % 09/03/23 02:05 Lymph % (Auto) 7.7 % 09/03/23 02:05 [place] % (Auto) 1.0 % 09/03/23 02:05 Eos % (Auto) 0.0 % 09/03/23 02:05 Baso % (Auto) 0.1 % 09/03/23 02:05 Neut # (Auto) 6.32 10^3/uL (1.8-7.7) 09/03/23 02:05 Lymph # (Auto) 0.5 10^3/uL (0.8-4.8) L 09/03/23 02:05 [place] # (Auto) 0.1 10^3/uL (0.2-0.9) L 09/03/23 02:05 Eos # (Auto) 0.0 10^3/uL (0.0-0.8) 09/03/23 02:05 Baso # (Auto) 0.0 10^3/uL (0.0-0.1) 09/03/23 02:05 Nucleated RBC % (auto) 0 % 09/03/23 02:05 Nucleated RBCs # 0.0 /100WBC 09/03/23 02:05 PT 13.20 SECONDS (12.1-14.9) 08/27/23 14:25 INR 0.98 (0.8-1.2) 08/27/23 14:25 Specimen Type Arterial 09/02/23 15:42 Sample Site Brachial, right 09/02/23 15:42 ABG pH 7.35 (7.35-7.45) 09/02/23 15:42 ABG pCO2 56.8 mmHg (35-45) H 09/02/23 15:42 ABG pO2 73.3 mmHg (80.0-100.0) L 09/02/23 15:42 ABG PO2/FiO2 Ratio 0 09/02/23 15:42 ABG HCO3 31.0 mmol/L (22-26) H 09/02/23 15:42 ABG O2 Saturation 96.1 09/02/23 15:42 ABG Base Excess 4.0 mmol/L (-2.0-2.0) H 09/02/23 15:42 Mikhail Test N/a 09/02/23 15:42 A-a O2 Gradient 11.2 mmHg (5-10) H 09/02/23 15:42 Hematocrit 35.6 % (37-47) L 09/02/23 15:42 Hgb O2 Saturation 94.1 % (95-100) L 09/02/23 15:42 Carboxyhemoglobin 1.7 %THgb (0.4-20.1) 09/02/23 15:42 Methemoglobin 0.4 % (0.4-1.5) 09/02/23 15:42 Total Hemoglobin 11.6 g/dL (12-16) L 09/02/23 15:42 Sodium 127.0 mmol/L (131-143) L 09/02/23 15:42 Potassium 4.1 mmol/L (3.5-5.0) 09/02/23 15:42 Glucose 123.0 mg/dL (70-115) H 09/02/23 15:42 Ionized Calcium 1.0 mmol/L (1.1-1.4) L 09/02/23 15:42 O2 Delivery Device Nc 09/02/23 15:42 O2 Liters/Min 3.0 % 09/02/23 15:42 FiO2 32.0 % 09/02/23 15:42 Tidal Volume 0.35 08/28/23 04:50 PEEP 8.0 cmH20 08/28/23 04:50 Senior Engineering Associate ID [facility]h 09/02/23 15:42 Sodium 130 mmol/L (136-145) L 09/03/23 12:38 Potassium 5.4 mmol/L (3.5-5.1) H 09/03/23 02:05 Chloride 88 mmol/L (98-107) L 09/03/23 02:05 Carbon Dioxide 27 mmol/L (22-29) 09/03/23 02:05 Anion Gap 18.4 (5-19) 09/03/23 02:05 BUN 43 mg/dL (8-23) H 09/03/23 02:05 Creatinine 1.4 mg/dL (0.5-0.9) H 09/03/23 02:05 GFR Calculation Not Reportable 09/03/23 02:05 Glucose 145 mg/dL (65-115) H 09/03/23 02:05 POC Glucose 89 mg/dL (70-110) 08/28/23 03:42 Estimat Average Glucose 117 08/27/23 14:25 Hemoglobin A1c 5.7 % (4.0-6.0) 08/27/23 14:25 Calculated Osmolality 279 mOsm/kg (285-295) L 09/03/23 02:05 Lactic Acid 1.5 mmol/L (0.5-2.2) 08/27/23 14:25 Lactate 0.9 mmol/L (0.5-2.2) 08/30/23 05:09 Calcium 7.4 mg/dL (8.5-10.5) L 09/03/23 02:05 Phosphorus 3.6 mg/dL (2.5-4.5) 09/03/23 02:05 Magnesium 2.2 mg/dL (1.7-2.3) 09/03/23 02:05 Total Bilirubin 0.5 mg/dL (0.15-1.2) 09/03/23 02:05 AST 13 U/L (0-32) 09/03/23 02:05 ALT 9 U/L (0-33) 09/03/23 02:05 Alkaline Phosphatase 74 U/L (35-105) 09/03/23 02:05 Creatine Kinase 26 U/L (26-192) 08/30/23 05:09 Troponin T Baseline 27 ng/L (0-10) H 08/27/23 14:25 Troponin T 120 Minute 30.21 ng/L (0-10) H 08/27/23 16:45 Delta Troponin T 3.21 ABS# (0-10) 08/27/23 16:45 Troponin T Hi Sens 6Hr 33.64 ng/L (0-10) H 08/27/23 20:21 Troponin T Hi Sens 6Hr Delta 6.64 ng/L (0-12) 08/27/23 20:21 C-Reactive Protein 4.8 mg/L (0.0-4.9) 09/03/23 02:05 NT-Pro-B Natriuret Pep 3617 pg/mL (0-450) H 09/03/23 02:05 Total Protein 6.3 g/dL (6.6-8.7) L 09/03/23 02:05 Albumin 3.9 g/dL (3.5-5.2) 09/03/23 02:05 Globulin 2.4 g/dL (1.3-4.6) 09/03/23 02:05 Triglycerides 127 mg/dL (0-150) 08/27/23 14:25 Cholesterol 203 mg/dL (0-200) H 08/27/23 14:25 LDL Cholesterol, Calc 89 mg/dL (50-129) 08/27/23 14:25 HDL Cholesterol 89 mg/dL (60-100) 08/27/23 14:25 LDL/HDL Ratio 1.00 RATIO (0.00-3.22) 08/27/23 14:25 Cholesterol/HDL Ratio 2.28 mg/dL (0.0-4.40) 08/27/23 14:25 Procalcitonin 0.08 ng/mL (0-0.5) 08/31/23 04:57 TSH 0.41 uIU/mL (0.27-4.20) 08/27/23 14:25 Urine Color Yellow (Yellow) 08/28/23 04:20 Urine Appearance Clear (CLEAR) 08/28/23 04:20 Urine pH 5 (5-7) 08/28/23 04:20 Ur Specific [place] 1.010 (1.005-1.030) 08/28/23 04:20 Urine Protein Neg (Negative) 08/28/23 04:20 Urine Glucose (UA) Norm (Normal) 08/28/23 04:20 Urine Ketones Negative (Negative) 08/28/23 04:20 Urine Blood Neg (Negative) 08/28/23 04:20 Urine Nitrate Negative (Negative) 08/28/23 04:20 Urine Bilirubin Neg (Negative) 08/28/23 04:20 Urine Urobilinogen Norm mg/dL (Negative) 08/28/23 04:20 Ur Leukocyte Esterase 2+ (Negative) H 08/28/23 04:20 Urine RBC 0-4 /hpf (0-2) H 08/28/23 04:20 Urine WBC 25-40 /hpf (0-5) H 08/28/23 04:20 Ur Squamous Epith Cells 0-4 /hpf (0-5) H 08/28/23 04:20 Amorphous Sediment Not Reportable 08/28/23 04:20 Urine Bacteria Trace /hpf (NONE) 08/28/23 04:20 Coronavirus 229E (PCR) Not detected (NOT DETECT) 08/27/23 14:45 Influenza Type A Ag negative (Negative) 08/27/23 14:45 Influenza Type B Ag negative (Negative) 08/27/23 14:45 SARS-CoV-2 (PCR) Not detected (NOT DETECT) 08/27/23 14:45 A&P Assessment and plan (1) Complete atelectasis of right lung: Patient with prior history of bilateral breast cancer-both different histologic types-underwent lumpectomy on both sides On admission complete opacification of right lung on imaging-suspicious for moderate to large right pleural effusion-however chest ultrasound did not reveal significant pocket for thoracentesis Suspect excessive mucus secretions versus endobronchial lesion causing complete atelectasis No improvement with chest vest therapy, Mucomyst, hypertonic saline nebulizations Recommended bronchoscopic inspection of airways, therapeutic clearance of secretions, and possible endobronchial biopsies if there is any lesion. Patient verbalized understanding for the indication, alternatives, nature of the procedure, risks and benefits of this procedure. Will proceed with bronchoscopy as soon as schedule permits Consult Attestations Medical Necessity Statement: Deferred to hospitalist Time Spent in Patient Care: Greater than 35 minutes (>than 50% of time spent in counselling and/or direct pt care on unit). Coding Level of Care Code 25850 Diagnoses Complete atelectasis of right lung J98.11 Time Spent (min) 52
--- NOTE | 2023-09-03 12:32 | XRR_ITS ---
PROCEDURE INFORMATION: Exam: XR Chest Exam date and time: 09/03/2023 2:16 PM Age: 82 years old Clinical indication: Shortness of breath; Additional info: SOB TECHNIQUE: Imaging protocol: Radiologic exam of the chest. Views: 1 view. COMPARISON: 1. CR XR chest 1V portable [id number] 09/03/2023 6:[address] angio chest PE protcl [id number] 08/27/2023 6:01 PM FINDINGS: Tubes, catheters and devices: Epidural neurostimulators in the lower thoracic spine are noted. Lungs: The majority of the right hemithorax is opacified. There is a small volume of aerated lung in the right apex. There are indistinct interstitial markings and mild reticular opacity in the left lung base. Pleural spaces: No pneumothorax. No visible pleural effusion on the left. Heart/Mediastinum: The cardiac silhouette is partially obscured. Bones/joints: There is diffuse vertebral bone sclerosis at T9. There is a healed fracture of the right proximal humerus. XR/XR chest 1V portable [id number] IMPRESSION: 1. Opacification of the majority of the right hemithorax with small volume residual aerated lung at the right apex is similar to findings on prior chest radiographs and is consistent with a combination of pleural effusion and atelectasis. Infection cannot be excluded. 2. Prominent interstitial markings and reticular opacity in the left lung base is stable. Possible interstitial edema or infection. 3. Sclerotic T9 vertebral body. Possible metastasis.
[2023-09-03 13:20] LABS: Sodium 130 mmol/L (136-145)
--- NOTE | 2023-09-03 14:57 | P.PN_ITS ---
Subjective 2 Subjective: - Overnight patient developed episodes o f shortness of breath, x-ray last night showed complete opacification of right middle and right lower lobe, ? Ultrasound did not show significant amount of fluid that needed to be drained, ? Concern for possible aspiration, mucous plugging, possible endobronchial lesion, ? She was started on chest vest therapy with Mucomyst and hypertonic saline, and again this morning she was seen, she continues to complain of shortness of breath, chest x-ray shows opacification of the right medial and right lower lobe, ? Overnight she did not tolerate chest vest therapy, ? This morning I was able to talk her into chest vest therapy she received about 10 minutes, of chest vest therapy, Mucomyst, hypertonic saline, ? Repeated chest x-ray which continues to show opacification of right middle and right lower lobe, ? Discussed with patient and at bedside, that likely she will need pulmonary consultation for bronchoscopy, discussed risk and benefits, she voiced understanding, all Qs answered, agreed to proceed, ? Her serum sodium is 126, will monitor, I will give her another dose of Lasix today as she appears to be fluid overloaded Vitals/I&O/Wt Last Vital Signs Temp 97.8 F 09/03/23 12:00 Pulse 88 09/03/23 14:00 Resp 20 H 09/03/23 14:00 BP 122/80 09/03/23 12:00 Pulse Ox 92 09/03/23 14:00 O2 Del Method Nasal Cannula 09/03/23 14:00 O2 Flow Rate 3 09/03/23 14:00 FiO2 40 09/03/23 09:47 09/02/23 09/03/23 09/03/23 22:59 06:59 14:59 Intake Total 530 / 1490 50 / 1540 Output Total 300 / 300 Balance 530 / 1490 -250 / 1240 Weight last 48 hrs Weight 99.972 kg Weight 99.025 kg Physical Exam 2 Const: COMMON NORMALS: no acute distress and patient oriented x3 Resp: COMMON NORMALS: normal respiratory effort, No retractions and No use of accessory muscles OTHER: Right middle lobe right lower lobe decreased aeration, does have wheezing and crackles Cardio: COMMON NORMALS: regular rate, regular rhythm, S1 normal heart sound present and S2 normal heart sound present RATE: regular rate RHYTHM: r egular rhythm HEART SOUNDS: S1 normal heart sound present and S2 normal heart sound present GI: COMMON NORMALS: Normal to inspection, nondistended, normoactive bowel sounds present and non-tender Extremity: COMMON NORMALS: no pedal edema Neuro: COMMON NORMALS: patient oriented x3 Psych: COMMON NORMALS: mental status grossly normal Data 09/03/23 02:05 09/03/23 12:38 A&P Assessment and plan (1) Acute hypoxic on chronic hypercapnic respiratory failure: (2) Pneumonia: Qualifiers: Laterality: bilateral Lung location: unspecified part of lung P neumonia type: due to unspecified organism Qualified Code(s): J18.9 - Pneumonia, unspecified organism (3) Pleural effusion, right: (4) Atrial fibrillation with RVR: (5) Hypothyroidism: Qualifiers: Hypothyroidism type: unspecified Qualified Code(s): E03.9 - Hypothyroidism, unspecified (6) CKD (chronic kidney disease): (7) SOB (shortness of breath): (8) Breast cancer, left: (9) Systolic CHF: (10) Aortic stenosis: (11) Moderate pulmonary hypertension: (12) Mitral regurgitation: (13) Complete atelectasis of right lung: Plan Complete opacification of right lung ? Concerns for mucous plugging versus aspiration versus endobronchial lesion, ? Has a history of breast cancer, with right middle lobe atelectasis, and sclerosis of T9 vertebrae concerning for osteoblastic lesion ? Has completed hypertonic saline, Mucomyst, chest vest therapy continues to have opacification of right lung, ? Spoke to radiology, chest ultrasound shows 100 cc of fluid not significant enough to tap for therapeutic purposes, ? Spoke to pulmonary, about bronchoscopy, n.p.o. over midnight, for bronchoscopy tomorrow Acute kidney injury on CKD, ? Creatinine 1.4 ? Stop lisinopril, stop hydrochlorothiazide ? Lasix has been held for the last 48 hours Acute hypoxic hypercarbic respiratory failure ?etiology: ? pitting edema, right pleural effusion, ? Cannot rule out underlying pneumonia ct angiogram -IMPRESSION: 1. Moderate right-sided and trace-small left-sided pleural effusions. 2. Right middle lobe atelectasis. Pulmonary clinic follow-up is recommended. Consider follow-up outpatient bronchoscopy. 3. No evidence of PE or acute aortic abnormality. 4. Mild dilation of the pulmonary trunk to 3.0 cm which can be seen with pulmonary arterial hypertension. ? Plan ? Continue BiPAP therapy, patient would clinically benefit from BiPAP therapy due to underlying diastolic CHF,fluid overload, elevated BNP ?monitor respiratory status closely ?continue DuoNeb -For now continue meropenem, for possible aspiration pneumonia -Has right pleural effusion, ultrasound thoracocentesis, has a history of left- sided breast cancer, not enough to drain for therapeutic purposes as per radiology, will follow-up bronchoscopy results, consider diagnostic thoracocentesis given history of breast cancer, new T9 vertebral osteoblastic lesion, right middle lobe atelectasis Aortic stenosis Severe, low gradient , normal flow aortic valve stenosis, mean gradient 7.9 mmHg, BEBETO 0.83 cm squared. Moderate pulomnary hypertension -will monitor closely -neeeds outpatient pulmonary follow up Right pleural effusion -Right pleural effusion thoracocentesis, ultrasound no significant fluid to drain ? Pleural fluid analysis A-fib with RVR ? A-fib likely difficult to control given aortic stenosis ? Currently heart rate well-controlled, ? 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 History of breast cancer Annie ?needs an outpatient follow-up for PET scan, oncology follow-up NSTEMI ? No chest pain complaints, ? Serial EKGs, serial troponins, telemetry monitoring, ?SCDs for DVT prophylaxis, full code Plan for today Eliquis and aspirin on hold for bronchoscopy, continue chest vest, Mucomyst, hypertonic saline, undergoing bronchoscopy tomorrow continue diuresis, monitor serum sodium, spoke to pulmonary, spoke to radiology Attestations 2 Medical Necessity Statement*: Patient requires hospitalization for fluid overload, right lung opacification possible aspiration pneumonia, fluid overload requiring diuresis, requiring bronchoscopy Diagnoses Acute hypoxic on chronic hypercapnic respiratory failure J96.01; J96.12 Pneumonia J18.9 Laterality: bilateral Lung location: unspecified part of lung Pneumonia type: due to unspecified organism Pleural effusion, right J90 Atrial fibrillation with RVR I48.91 Hypothyroidism, unspecified type E03.9 Hypothyroidism type: unspecified CKD (chronic kidney disease) N18.9 SOB (shortness of breath) R06.02 Breast cancer, left C50.912 Systolic CHF I50.20 Aortic stenosis I35.0 Moderate pulmonary hypertension I27.20 Mitral regurgitation I34.0 Complete atelectasis of right lung J98.11
[2023-09-03 18:56] LABS: Sodium 127 mmol/L (136-145)
[2023-09-03] MEDS: atorvastatin 40 mg Tablet 20 MG PO (21:26)
[2023-09-03] MEDS: benzonatate 100 mg Capsule PO (21:30)
[2023-09-04] VITALS (31 sets, daily range): BP systolic 102–124; BP diastolic 64–82; PULSE 62–104; RESP 16–20; TEMP 36.3–37; O2SAT 95–100
[2023-09-04 01:15] LABS: Sodium 129 mmol/L (136-145)
[2023-09-04] MEDS: ipratropium-albuterol 3 mL Neb INHALATION ×3 (02:33→20:56)
[2023-09-04] MEDS: dilTIAZem 30 mg Tablet PO ×3 (04:51→21:20)
[2023-09-04 06:00] LABS: Hematocrit 33.9 % (36-47); Lymphocytes # 0.8 10^3/uL (0.8-4.8); Lymphocytes % 11.7 %; Mean Corpuscular HGB Conc 30.7 g/dL (30-55); Mean Corpuscular Hemoglobin 28.7 pg (27-33); Mean Corpuscular Volume 93.4 fl (85-98); Mean Platelet Volume 9.9 fL (7.4-10.4); Monocytes # 0.5 10^3/uL (0.2-0.9); Neutrophils # 5.51 10^3/uL (1.8-7.7); Neutrophils % 80.7 %; Nucleated Red Blood Cells % 0 %; Platelet Count 188 10^3/cmm (157-399); Red Blood Count 3.63 10^6/uL (3.85-5.65); Red Cell Distribution Width 13.8 % (12.1-15.1); White Blood Count 6.83 10^3/uL (3.29-11.43)
--- NOTE | 2023-09-04 06:00 | XR_ITS ---
WS: [id number] XR chest 1V portable [id number] REASON FOR EXAM: right lung collapse FINDINGS: Compared to the previous examination of 09/03/2023, there appears to have been some resolution of the r eticular interstitial lung opacities in the left lower lung. Presumed interstitial edema. There continues to be a large right pleural effusion and significant atelectasis in the right lower l joe. No significant interval change compared to the previous day. No new findings. IMPRESSION: Abnormal chest with some improvement as above.
[2023-09-04 06:11] LABS: INR 1.15 (0.8-1.2)
--- NOTE | 2023-09-04 06:11 | PC.NURSE ---
Report given to GI lab nurse at 0611 via phone call.
[2023-09-04] MEDS: meropenem 1,000 MG in sodium chloride 0.9% (plus) 50 ML 100 MG IV ×2 (06:29→21:29)
[2023-09-04] MEDS: levothyroxine 125 mcg Tablet PO (06:29)
[2023-09-04 06:31] LABS: Alanine Aminotransferase 7 U/L (0-33); Albumin Level 3.4 g/dL (3.5-5.2); Alkaline Phosphatase 57 U/L (35-105); Anion Gap 13.2 (5-19); Aspartate Amino Transferase 12 U/L (0-32); Blood Urea Nitrogen 45 mg/dL (8-23); Calcium 7.4 mg/dL (8.5-10.5); Carbon Dioxide 31 mmol/L (22-29); Chloride 90 mmol/L (98-107); Globulin 2.5 g/dL (1.3-4.6); Glucose 129 mg/dL (65-115); Magnesium 2.3 mg/dL (1.7-2.3); Osmolality Calculated 281 mOsm/kg (285-295); Phosphorus 4.1 mg/dL (2.5-4.5); Potassium 5.2 mmol/L (3.5-5.1); Sodium 129 mmol/L (136-145); Total Bilirubin 0.4 mg/dL (0.15-1.2); Total Protein 5.9 g/dL (6.6-8.7)
[2023-09-04 06:32] LABS: NT Pro B Type Natriuretic Pept 6252 pg/mL (0-450)
--- NOTE | 2023-09-04 06:56 | ANES.PREANE2 ---
Pre-Anesthetic Assessment Height/Weight: Height 1.6 m Weight 99.972 kg Temp Pulse Resp BP Pulse Ox O2 Del Method O2 Flow Rate 98.6 F 73 16 120/76 97 BiPAP 3 09/04/23 05:00 09/04/23 05:00 09/04/23 05:00 09/04/23 05:00 09/04/23 05:00 09/04/23 02:33 09/03/23 21:48 FiO2 40 09/04/23 03:06 Preop Diagnosis: R lung atelectasis Operation Date: 09/04/23 07:00 Proposed Procedures p Bronchoscopy with therapeutic clearance of airways(Not Applicable) - Galo Baca DatarMD Was Beta Yuly taken within 24 hours: Yes Was Clonidine taken within 24 hours: N/A Last intake: Intake Last Liquid Date 09/03/23 Last Liquid Time 18:00 Last Solid Date 09/03/23 Last Solid Time 18:00 Social No alcohol and No tobacco Exam alert, oriented x 3, clear to auscultation bilaterally and regular rate & rhythm Airway Submandibular: within normal limits Cervical ROM: within normal limits Mallampati: Class II Dentition: full Pulmonary Cough, Exertional Dyspnea and Shortness of Breath CV/HEM Arrythmia and Hypertension Chronic Renal Insufficiency Hepatic None reported GI Gastroesophageal Reflux Disease Metabolic Hyperlipidemia, Morbid Obesity and Thyroid Disease (removed 50+ years ago) Musc/skel Lower Back Pain, Osteoarthritis/DJD and Weakness Spine stimulator Neuropsych Anxiety Medications/Allergies Home Medications Medication Instructions Recorded Confirmed Last Taken Type ascorbic acid (vitamin C) 1,000 mg 1,000 mg PO DAILY 09/09/19 08/27/23 06/14/22 History tablet calcium carbonate 600 mg calcium 600 mg PO DAILY 08/09/22 08/27/23 Unknown History (1,500 mg) tablet (Calcium) albuterol sulfate 2.5 mg/3 mL 2.5 mg (3 mL) inhalation QID PRN 06/06/23 08/27/23 Unknown Rx (0.083 %) solution for nebulization shortness of breath or wheezing #90 mL cefdinir 300 mg capsule 300 mg PO BID 10 days #20 caps 08/24/23 08/27/23 08/27/23 Rx ondansetron HCl 4 mg tablet 4 mg PO Q6H PRN nausea and 08/24/23 08/27/23 Unknown Rx vomiting #30 tabs prednisone 20 mg tablet 20 mg PO BID 5 days #10 tabs 08/24/23 08/27/23 08/27/23 Rx chlordiazepoxide HCl 10 mg capsule 10 mg PO BEDTIME 08/27/23 08/27/23 Unknown History clonidine HCl 0.1 mg tablet 0.1 mg PO BID 08/27/23 08/27/23 Unknown History hydrochlorothiazide 25 mg tablet 25 mg PO QAM 08/27/23 08/27/23 08/27/23 History letrozole 2.5 mg tablet 2.5 mg PO DAILY 08/27/23 08/27/23 Unknown History levothyroxine 125 mcg tablet 125 mcg PO QAM 08/27/23 08/27/23 08/27/23 History lisinopril 40 mg tablet 40 mg PO BID 08/27/23 08/27/23 08/27/23 History lovastatin 20 mg tablet 40 mg PO DAILY 08/27/23 08/27/23 Unknown History metoprolol tartrate 50 mg tablet 75 mg PO BID 08/27/23 08/27/23 Unknown History omeprazole 40 mg capsule,delayed 40 mg PO DAILY 08/27/23 08/27/23 Unknown History release Allergies Allergy/AdvReac Type Severity Reaction Status Date / Time adhesive Allergy Intermediate ALGY-Bliste Verified 08/27/23 13:54 r clarithromycin [From Biaxin] Allergy Intermediate thrush Verified 08/27/23 13:54 Penicillins Allergy Unknown Unknown Verified 08/27/23 13:54 Current Medications Generic Name Dose Route Start Last Admin Trade Name Freq PRN Reason Stop Dose Admin Acetaminophen 650 mg 08/27/23 18:18 09/02/23 18:43 Acetaminophen 325 Mg Tablet PO 650 mg Q6H PRN Administration Mild/Mod Pain Or Temp >/= 101 Acetylcysteine 100 mg 09/02/23 20:00 09/03/23 20:13 Acetylcysteine 200 Mg/Ml Sdv 4 Ml INHALATION 100 mg Q6H.RESP ABHAY Administration Albuterol/Ipratropium 3 ml 09/01/23 14:00 09/04/23 02:33 Ipratropium-Albuterol 3 Ml Neb INHALATION 3 ml Q6H.RESP ABHAY Administration Apixaban 5 mg 08/28/23 16:45 09/02/23 04:49 Apixaban 5 Mg Tablet PO 5 mg Q12H ABHAY Administration Aspirin 81 mg 08/28/23 18:00 09/02/23 09:47 Aspirin 81 Mg Ec Tablet PO 81 mg DAILY ABHAY Administration Atorvastatin Calcium 20 mg 08/27/23 21:00 09/03/23 21:26 Atorvastatin 40 Mg Tablet PO 20 mg BEDTIME ABHAY Administration Benzonatate 100 mg 08/30/23 09:34 09/03/23 21:30 Benzonatate 100 Mg Capsule PO 100 mg TID PRN Administration COUGH Clonidine HCl 0.1 mg 08/27/23 18:18 09/03/23 17:44 Clonidine 0.1 Mg Tablet PO 0.1 mg BID ABHAY Administration Diltiazem HCl 30 mg 08/29/23 10:00 09/04/23 04:51 Diltiazem 30 Mg Tablet PO 30 mg Q6H ABHAY Administration Meropenem 1,000 mg/ Sodium 50 mls @ 100 mls/hr 09/02/23 18:00 09/04/23 06:29 Chloride IV 100 mls/hr Q12H ABHAY Administration Protocol Levothyroxine Sodium 125 mcg 08/28/23 06:00 09/04/23 06:29 Levothyroxine 125 Mcg Tablet PO 125 mcg QAM ABHAY Administration Metoprolol Tartrate 75 mg 08/27/23 18:18 09/03/23 17:44 Metoprolol Tartrate 50 Mg Tablet PO 75 mg BID ABHAY Administration Morphine Sulfate 1 mg 09/02/23 16:29 09/03/23 21:30 Morphine 4 Mg/Ml Sdv 1 Ml IVP 1 mg Q4H PRN Administration SEVERE PAIN Non-Formulary Medication 2.5 mg 08/28/23 09:00 09/03/23 09:30 Letrozole PO Not Given DAILY ABHAY Pantoprazole Sodium 40 mg 08/28/23 09:00 09/03/23 10:[address] 40 Mg Tablet PO 40 mg DAILY ABHAY Administration Sodium Chloride 4 ml 09/02/23 20:00 09/03/23 20:19 Sodium Chloride 3.5% Neb 4 Ml Neb INHALATION Not Given BID.RESPIRATORY ABHAY Sodium Chloride 1 gm 09/02/23 18:05 09/03/23 17:44 Sodium Chloride 1 Gm Tablet PO 1 gm BID ABHAY Administration PFSH Anesthesia Medical History Osteoporosis Gout History of right shoulder fracture Breast cancer, left 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 Nu Hubbard [facility] Family History Sister Cancer Breast Other Family history non-contributory Suicide Denies family history of Diabetes CAD (coronary artery disease) Clotting disorder Dementia Hyperlipidemia Psychiatric illness Chronic kidney disease (CKD) Anesthesia complication Bleeding disorder Lung disease Hypertension Stroke Social History Smoking and tobacco/nicotine status: former use of tobacco/nicotine Quit status (tobacco/nicotine): has quit using Year quit tobacco: in 20's Former quit date comment: Not sure of quit date Second hand smoke exposure: No Alcohol intake: never Substance/Drug Use: never Caregiver/support person: Yes Lives independently: Yes Household members: spouse Marital status: Current occupational status: retired Current gender identity: Female Special temi needs: No Agree to transfusion: Yes Data Anesthesia 09/04/23 05:52 09/04/23 05:52 Short CBC 09/02/23 09/03/23 09/04/23 Range/Units 16:54 02:05 05:52 WBC 8.03 6.99 6.83 (3.29-11.43) 10^3/uL Hgb 11.00 L 11.90 10.40 L (11.27-16.99) g/dL Hct 35.8 L 39.0 33.9 L (36-47) % MCV 95.0 92.6 93.4 (85-98) fl Plt Count 213 265 188 (157-399) 10^3/cmm Neut % (Auto) 74.4 90.5 80.7 % Neut # (Auto) 5.98 6.32 5.51 (1.8-7.7) 10^3/uL BMP 09/02/23 09/02/23 09/03/23 16:54 21:42 02:05 Sodium 126 L 126 L 128 L Potassium 4.5 Chloride 88 L Carbon Dioxide 28 BUN 46 H Creatinine 1.6 H Glucose 116 H Calcium 7.5 L 09/03/23 09/03/23 09/03/23 02:05 02:05 12:38 Sodium 128 L 126 L 130 L Potassium 5.4 H Chloride 88 L Carbon Dioxide 27 BUN 43 H Creatinine 1.4 H Glucose 145 H Calcium 7.4 L 09/03/23 09/04/23 09/04/23 18:08 00:36 05:52 Sodium 127 L 129 L 129 L Potassium 5.2 H Chloride 90 L Carbon Dioxide 31 H BUN 45 H Creatinine 1.4 H Glucose 129 H Calcium 7.4 L Cardiac Enzymes 09/02/23 09/03/23 09/04/23 Range/Units 16:54 02:05 05:52 NT-Pro-B Natriuret Pep 2866 H 3617 H 6252 H (0-450) pg/mL Liver Function 09/03/23 09/04/23 Range/Units 02:05 05:52 Total Bilirubin 0.5 0.4 (0.15-1.2) mg/dL AST 13 12 (0-32) U/L ALT 9 7 (0-33) U/L Alkaline Phosphatase 74 57 (35-105) U/L Albumin 3.9 3.4 L (3.5-5.2) g/dL Coags 09/03/23 09/04/23 02:05 05:52 PT 15.10 H INR 1.15 C-Reactive Protein 4.8 3.0 ABG 09/02/23 15:42 Specimen Type Arterial Sample Site Brachial, right ABG pH 7.35 ABG pCO2 56.8 H ABG pO2 73.3 L ABG PO2/FiO2 Ratio 0 ABG HCO3 31.0 H ABG O2 Saturation 96.1 ABG Base Excess 4.0 H A-a O2 Gradient 11.2 H O2 Delivery Device Nc O2 Liters/Min 3.0 FiO2 32.0 Microbiology 08/27/23 14:50 Blood Culture - Final Blood Cardiac Studies: Echocardiogram 08/27/23
[2023-09-04] MEDS: sodium chloride 0.9% 1,000 ML 30 ML IV (07:03)
[2023-09-04] MEDS: lidocaine 1% INJ 10 mL (per mL) XX (07:32)
--- NOTE | 2023-09-04 08:23 | XR_ITS ---
WS: [id number] PORTABLE CHEST HISTORY: POST-BRONCH COMPARISON: 09/04/2023 and 09/03/2023 No complication status post bronchoscopy. No interval adverse change. No pneumothorax. Continued partial obscuration of the RIGHT lung. Probably combination of atelectasis and pleural flui d. The pleural effusion has slightly decreased over the last several days. Patient also has a known e levated RIGHT diaphragm. The effusion is probably not as great as expected due to the elevated diaphr agm that has been previously described. There is a focal area of increased density in the lateral RIG HT lung. Probably area of pneumonitis or fluid. Improving aeration throughout the LEFT lung. Cardiac size: Partially obscured but the heart silhouette appears enlarged. Mediastinum/Aorta: Atherosclerosis aorta. Osteopenia. Prior fracture RIGHT humeral neck. IMPRESSION: 1. No complication status post bronchoscopy. 2. No pneumothorax. 3. Patient has an elevated RIGHT hemidiaphragm which is in part responsible for the increased density in the RIGHT thorax. There may be a small residual effusion and atelectasis but minimal. 4. Improving aeration throughout the LEFT lung over the last several days.
--- NOTE | 2023-09-04 08:26 | PM.OP ---
Operative Report Date of procedure: September 04, 2023 Pre-op diagnosis: Right lung atelectasis-secondary to mucous plugging Surgeon: Galo Mendez MD Brief History: Kelley Quezada is a 82 year old female past medical history of left breast cancer, hypertension, hyperlipidemia, presented to [facility] on 08/27/2022 due to shortness of breath. She is found to have hypercarbic hypoxic respiratory failure placed on BiPAP. She received 7-day course of vancomycin and meropenem. So far cultures are negative. No leukocytosis. Patient has been afebrile. CTA 08/27/2023 showed moderate right-sided and trace small left pleural effusions. Right middle lobe atelectasis. No evidence of PE. Chest ultrasound did not reveal sufficient fluid for thoracic disease on 08/28/2023 and again 09/03/2023. There is a gradual worsening of right-sided consolidation on chest x-rays. There is no significant improvement with chest vest therapy and hypertonic saline, Mucomyst nebulization Pulmonary consult requested for bronchoscopy for airway inspection and therapeutic clearance of mucous plugging. Procedure: Procedure : -Dx Bronchoscope w/Washings or airway inspection -Dx Bronchoscope w/BAL -Bronchoscopy w/ therapeutic aspiration of the tracheobronchial tree (clearance of airway secretions, removal of mucus plugs) Pre-Operative Diagnosis: Significant mucous plugging causing right lung atelectasis Post-Operative Diagnosis: Same Indication: Chest x-ray showing significant atelectasis in the right lower lung. No significant interval change compared to the previous day. Consent: Consents were obtained from patient and placed in the chart Pre-procedure Evaluation: Patient was evaluated clinically and ancillary testing reviewed. The risk of having active MTB infection is very low in my clinical judgement. ASA: 3 Malampati score: unable to evaluate due to presence of endotracheal tube Time out: Performed by the procedure team and nursing staff. Vent support maintained on Fio2 100. Anesthesia: Managed as per anesthesia team Local anesthesia: The joshua in the right and left mainstem bronchi were anesthetized with 1% lidocaine,3 mL. Summary of Significant Findings: -Bronchoscope passed through ET tube used for initial inspection and airway clearance. The scope was advanced through the ET tube. The distal end of ET tube and lower trachea has thick copious purulent secretions almost blocking the ET tube which were suctioned right away. There is significant tracheomalacia and evidence of excessive dynamic airway compression. After suctioning thick secretions, the lower trachea mucosa appeared normal, no endotracheal lesion was seen. The joshua was sharp. The joshua, the right and left mainstem bronchi are anesthetized with 1 mL each 1% lidocaine. In a systematic manner bilateral bronchial tree was then examined. The bronchoscope was advanced into the left mainstem bronchus. Again thick mucus secretions were noted throughout the left bronchial tree which were suctioned right away. The left upper lobe, lingula and left lower lobe bronchi were examined up to the third subsegmental level and no abnormalities were identified. Mucosa appeared normal with no endobronchial lesion, active bleeding or mucous plug. The bronchoscope was then introduced into the right mainstem bronchus. There were copious thick mucus secretions plugging right mainstem bronchus which were suctioned right away. The right upper lobe, right middle lobe and right lower lobe bronchi were examined up to the third subsegmental level. The mucosa appeared significantly edematous and bronchus intermedius, right lower lobe, right middle lobe segments. There is excessive dynamic airway compression causing bronchomalacia and collapse of airways guerrero. There are no obvious endobronchial lesions noted. The mucosa started bleeding due to bronchoscope. Then the bronchoscope was wedged at the medial segment of right lower lobe-instilled 60 cc normal saline and aspirated blood-tinged bronchoalveolar lavage 25 cc. After obtaining from right lower lobe, making sure there is no active bleeding, the bronchoscope was then removed and the procedure terminated. Estimated Blood Loss: None Specimens: Bronchoalveolar lavage from right lower lobe sent for cultures, fluid analysis, PCP PCR, Asperillus antigen Complications:None; patient tolerated the procedure well. Disposition: Patient will be extubated to BiPAP and transferred to 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
[2023-09-04 08:53] LABS: Color, Bronc Wash Red; Cyto Order Verification Order Verified
[2023-09-04 08:54] LABS: Apprearance, Bronch Wash Cloudy (CLEAR)
[2023-09-04 11:03] LABS: Total Cells Counted Bronch 200
[2023-09-04 11:04] LABS: PATH Referral Yes
--- NOTE | 2023-09-04 11:47 | PM.PN ---
Subjective Subjective: Patient had brochoscopy today. Feeling better today. Heart rate is improved. Vitals/I&O/Wt Last Vital Signs Temp 97.4 F L 09/04/23 07:56 Pulse 70 09/04/23 08:53 Resp 18 09/04/23 08:53 BP 116/77 09/04/23 08:53 Pulse Ox 95 09/04/23 11:10 O2 Del Method Nasal Cannula 09/04/23 11:10 O2 Flow Rate 4 09/04/23 11:10 FiO2 40 09/04/23 08:04 09/03/23 09/04/23 09/04/23 22:59 06:59 14:59 Intake Total 530 / 530 350 / 350 Output Total 300 / 300 0 / 0 Balance 530 / 530 -300 / 230 350 / 350 Weight last 48 hrs Weight 220 lb 6.4 oz Weight 220 lb 6.4 oz Physical Exam Narrative: GENERAL: Patient is alert, awake and oriented x3. [] NECK: No jugular vein distension. [] HEENT: No cyanosis. No icterus. No pallor. [] HEART: Irregularly irregular LUNGS:Diminished air entry CENTRAL NERVOUS SYSTEM: Grossly nonfocal. [] EXTREMITIES: Lower extremities with 1+ edema bilaterally. [] Data 09/05/23 02:23 09/05/23 02:23 Micro: Microbiology 08/27/23 14:50 Blood Culture - Final Blood A&P Assessment and plan (1) Atrial fibrillation with RVR: (2) Aortic stenosis: (3) Congestive heart failure: (4) PAD (peripheral artery disease): (5) Essential (primary) hypertension: (6) Mixed hyperlipidemia: (7) Mitral regurgitation: Plan Post bronchoscopy and secretions suctioning, she is feeling better. Breathing has improved. Workup of valve trial and aortic valve severity as outpatient. Management of pneumonia per primary team. Continue anticoagulation. Thank you for involving us with care of this patient. We will continue to follow. Please call with questions Attestations Medical Necessity Statement*: Care expected to cross 2 midnights. Coding Level of Care Code Acute Code for [facility] Fwd Diagnoses Atrial fibrillation with RVR I48.91 Aortic stenosis I35.0 Congestive heart failure I50.9 PAD (peripheral artery disease) I73.9 Essential (primary) hypertension I10 Mixed hyperlipidemia E78.2 Mitral regurgitation I34.0
[2023-09-04] MEDS: predniSONE 20 mg Tablet 40 MG PO (12:52)
[2023-09-04] MEDS: acetylcysteine 200 mg/mL SDV 4 mL 100 MG INHALATION ×2 (13:40→20:55)
--- NOTE | 2023-09-04 15:16 | P.PN_ITS ---
Subjective 2 Subjective: Patient was seen this morning, after her bronchoscopy procedure, she is alert oriented x 3, following all commands, does denies any shortness of breath, currently resting comfortably on BiPAP, bronchoscopy procedure showed thick mucus secretions throughout the left bronchial tree which were suctioned, there is also copious secretions right mainstem bronchus, mucosa appeared significantly edematous, and bronchus intermedius, right lower lobe, right middle lobe segments Vitals/I&O/Wt Last Vital Signs Temp 97.7 F 09/04/23 11:47 Pulse 98 09/04/23 13:47 Resp 17 09/04/23 13:40 BP 116/75 09/04/23 11:47 Pulse Ox 99 09/04/23 13:46 O2 Del Method BiPAP 09/04/23 13:40 O2 Flow Rate 4 09/04/23 11:10 FiO2 40 09/04/23 13:46 09/04/23 09/04/23 09/04/23 06:59 14:59 22:59 Intake Total 830 / 830 Output Total 300 / 300 0 / 0 Balance -300 / 230 830 / 830 Weight last 48 hrs Weight 99.972 kg Weight 99.972 kg Physical Exam 2 Const: COMMON NORMALS: no acute distress and patient oriented x3 Resp: COMMON NORMALS: normal respiratory effort, No retractions, No use of accessory muscles and clear to auscultation bilaterally AUSCULTATION: clear to auscultation bilaterally Cardio: COMMON NORMALS: regular rate, regular rhythm, S1 normal heart sound present and S2 normal heart sound present RATE: regular rate RHYTHM: r egular rhythm HEART SOUNDS: S1 normal heart sound present and S2 normal heart sound present GI: COMMON NORMALS: Normal to inspection, nondistended, normoactive bowel sounds present and non-tender Extremity: COMMON NORMALS: no pedal edema Neuro: COMMON NORMALS: patient oriented x3 Psych: COMMON NORMALS: mental status grossly normal Data 09/04/23 05:52 09/04/23 05:52 Micro: Microbiology 08/27/23 14:45 Blood Culture - Final Blood 08/27/23 14:50 Blood Culture - Final Blood A&P Assessment and plan (1) Acute hypoxic on chronic hypercapnic respiratory failure: (2) Pneumonia: Qualifiers: Laterality: bilateral Lung location: unspecified part of lung P neumonia type: due to unspecified organism Qualified Code(s): J18.9 - Pneumonia, unspecified organism (3) Pleural effusion, right: (4) Atrial fibrillation with RVR: (5) Hypothyroidism: Qualifiers: Hypothyroidism type: unspecified Qualified Code(s): E03.9 - Hypothyroidism, unspecified (6) CKD (chronic kidney disease): (7) SOB (shortness of breath): (8) Breast cancer, left: (9) Systolic CHF: (10) Aortic stenosis: (11) Moderate pulmonary hypertension: (12) Mitral regurgitation: (13) Complete atelectasis of right lung: Plan Complete opacification of right lung -Did not improve with hypertonic saline, Mucomyst, chest vest therapy ? Underwent bronchoscopy ? Patient was found to have thick mucus secretions throughout the left bronchial tree, copious thick mucus secretions blocking the right mainstem bronchus, mucosa significantly edematous and bronchus intermedius, right lower lobe, right middle lobe segments, -Concerns for silent aspiration ? Placed on aspiration precautions, dysphagia level 4 diet, speech therapy eval ? Plan for a modified barium swallow tomorrow, ? Start prednisone 40 mg daily, spoke to pulmonary Acute kidney injury on CKD, ? Creatinine 1.4 ? Stop lisinopril, stop hydrochlorothiazide Hyponatremia, ? Monitor serum sodium, 129 Acute hypoxic hypercarbic respiratory failure ?etiology: ? pitting edema, right pleural effusion, ? Cannot rule out underlying pneumonia ct angiogram -IMPRESSION: 1. Moderate right-sided and trace-small left-sided pleural effusions. 2. Right middle lobe atelectasis. Pulmonary clinic follow-up is recommended. Consider follow-up outpatient bronchoscopy. 3. No evidence of PE or acute aortic abnormality. 4. Mild dilation of the pulmonary trunk to 3.0 cm which can be seen with pulmonary arterial hypertension. ? Plan ? Continue BiPAP therapy, patient would clinically benefit from BiPAP therapy due to underlying diastolic CHF,fluid overload, elevated BNP ?monitor respiratory status closely ?continue DuoNeb -For now continue meropenem, for possible aspiration pneumonia -Has right pleural effusion, ultrasound thoracocentesis, has a history of left- sided breast cancer, not enough to drain for therapeutic purposes as per radiology, Aortic stenosis Severe, low gradient , normal flow aortic valve stenosis, mean gradient 7.9 mmHg, BEBETO 0.83 cm squared. Moderate pulomnary hypertension -will monitor closely -neeeds outpatient pulmonary follow up Right pleural effusion -Right pleural effusion thoracocentesis, ultrasound no significant fluid to drain ? Pleural fluid analysis A-fib with RVR ? A-fib likely difficult to control given aortic stenosis ? Currently heart rate well-controlled, ? 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 History of breast cancer Annie ?needs an outpatient follow-up for PET scan, oncology follow-up NSTEMI ? No chest pain complaints, ? Serial EKGs, serial troponins, telemetry monitoring, ?SCDs for DVT prophylaxis, full code Plan for today resume Eliquis, aspirin, start prednisone, speech therapy eval, aspiration precautions, modified barium swallow Attestations 2 Medical Necessity Statement*: Patient requires hospitalization for opacification of the left right lung, with thick mucus secretions requiring bronchoscopy, concerns for silent aspiration, modified barium swallow speech therapy eval, aspiration precautions, hyponatremia, fluid overload and High MDM includes number and complexity of problems actively addressed during encounter, amount and/or complexity of data reviewed/ordered and described risk of complication, morbidity or mortality of management as documented Diagnoses Acute hypoxic on chronic hypercapnic respiratory failure J96.01; J96.12 Pneumonia J18.9 Laterality: bilateral Lung location: unspecified part of lung Pneumonia type: due to unspecified organism Pleural effusion, right J90 Atrial fibrillation with RVR I48.91 Hypothyroidism, unspecified type E03.9 Hypothyroidism type: unspecified CKD (chronic kidney disease) N18.9 SOB (shortness of breath) R06.02 Breast cancer, left C50.912 Systolic CHF I50.20 Aortic stenosis I35.0 Moderate pulmonary hypertension I27.20 Mitral regurgitation I34.0 Complete atelectasis of right lung J98.11
[2023-09-04] MEDS: apixaban 5 mg Tablet PO (17:23)
[2023-09-04] MEDS: sodium chloride 1 gm Tablet PO (17:23)
[2023-09-04] MEDS: metoprolol tartrate 50 mg Tablet 75 MG PO (17:23)
[2023-09-04] MEDS: cloNIDine 0.1 mg Tablet PO (17:24)
[2023-09-04] MEDS: atorvastatin 40 mg Tablet 20 MG PO (21:20)
[2023-09-05] VITALS (20 sets, daily range): BP systolic 91–139; BP diastolic 64–89; PULSE 66–101; RESP 16–18; TEMP 36.4–37; O2SAT 90–100
[2023-09-05] MEDS: ipratropium-albuterol 3 mL Neb INHALATION ×4 (02:09→21:24)
[2023-09-05 02:59] LABS: Hematocrit 34.6 % (36-47); Lymphocytes # 0.7 10^3/uL (0.8-4.8); Lymphocytes % 7.7 %; Mean Corpuscular HGB Conc 30.3 g/dL (30-55); Mean Corpuscular Hemoglobin 28.6 pg (27-33); Mean Corpuscular Volume 94.3 fl (85-98); Monocytes # 0.4 10^3/uL (0.2-0.9); Monocytes % 3.9 %; Neutrophils % 87.6 %; Nucleated Red Blood Cells % 0 %; Platelet Count 226 10^3/cmm (157-399); Red Blood Count 3.67 10^6/uL (3.85-5.65); White Blood Count 9.01 10^3/uL (3.29-11.43)
[2023-09-05 03:21] LABS: Alanine Aminotransferase 10 U/L (0-33); Albumin Level 3.7 g/dL (3.5-5.2); Alkaline Phosphatase 55 U/L (35-105); Anion Gap 12.2 (5-19); Aspartate Amino Transferase 18 U/L (0-32); Blood Urea Nitrogen 45 mg/dL (8-23); Calcium 7.5 mg/dL (8.5-10.5); Carbon Dioxide 32 mmol/L (22-29); Chloride 90 mmol/L (98-107); Globulin 2.4 g/dL (1.3-4.6); Glucose 124 mg/dL (65-115); Magnesium 2.4 mg/dL (1.7-2.3); Osmolality Calculated 281 mOsm/kg (285-295); Phosphorus 3.5 mg/dL (2.5-4.5); Potassium 5.2 mmol/L (3.5-5.1); Sodium 129 mmol/L (136-145); Total Bilirubin 0.4 mg/dL (0.15-1.2); Total Protein 6.1 g/dL (6.6-8.7)
[2023-09-05 03:42] LABS: NT Pro B Type Natriuretic Pept 7313 pg/mL (0-450)
[2023-09-05] MEDS: apixaban 5 mg Tablet PO ×2 (05:27→18:10)
[2023-09-05] MEDS: dilTIAZem 30 mg Tablet PO ×4 (05:27→20:48)
[2023-09-05] MEDS: levothyroxine 125 mcg Tablet PO (05:27)
--- NOTE | 2023-09-05 07:00 | XR_ITS ---
WS: [id number] PORTABLE CHEST HISTORY: sob COMPARISON: 09/04/2023 Patient has a known moderate elevated RIGHT diaphragm. There is also increasing RIGHT pleural effusio n as compared to the most recent examination. Increasing pulmonary venous congestion. Increased opaci fication at the RIGHT lung base towards the elevated diaphragm is probably atelectasis. Cardiac size: Obscured by the elevated diaphragm. Mediastinum/Aorta: Mildly ectatic aorta. Prior fracture RIGHT humeral neck. IMPRESSION: 1. New since prior examination is moderate CHF. 2. Elevated RIGHT hemidiaphragm. There is an increasing RIGHT pleural effusion also present.
[2023-09-05] MEDS: acetylcysteine 200 mg/mL SDV 4 mL 100 MG INHALATION ×2 (09:17→14:38)
[2023-09-05] MEDS: predniSONE 20 mg Tablet 40 MG PO (09:27)
[2023-09-05] MEDS: FUROsemide 10 mg/mL SDV 4mL 40 MG IVP (09:27)
[2023-09-05] MEDS: cloNIDine 0.1 mg Tablet PO ×2 (09:27→18:10)
[2023-09-05] MEDS: sodium chloride 1 gm Tablet PO ×2 (09:27→18:09)
[2023-09-05] MEDS: pantoprazole DR 40 mg Tablet PO (09:28)
[2023-09-05] MEDS: aspirin 81 mg EC Tablet PO (09:28)
[2023-09-05] MEDS: metoprolol tartrate 50 mg Tablet 75 MG PO ×2 (09:28→18:09)
--- NOTE | 2023-09-05 11:03 | FL_ITS ---
WS: [id number] FL barium swallow modifd [id number] REASON FOR EXAM: Oral dysphagia FLUOROSCOPY TIME: 4min [id number] # OF SPOT FILMS: None FINDINGS: The procedure was supervised by the speech therapy department. Patient was examined in the sitting up right lateral projection. Swallowing of varying consistencies of barium was monitored fluoroscopically and video recorded. A detailed report of the swallowing will be rendered by the speech therapy department. IMPRESSION: Modified barium swallow as above.
[2023-09-05] MEDS: meropenem 1,000 MG in sodium chloride 0.9% (plus) 50 ML 100 MG IV ×2 (11:05→23:04)
--- NOTE | 2023-09-05 14:13 | P.PN_ITS ---
Subjective 2 Subjective: Patient was seen this morning, she is sitting up to side of the bed, on 3 L, she tells me that she still has shortness of breath, she is waiting to be transferred down for her modified barium swallow no choking, coughing, we discussed giving her Lasix, monitoring her for another 24 hours Vitals/I&O/Wt Last Vital Signs Temp 98.1 F 09/05/23 12:00 Pulse 66 09/05/23 12:00 Resp 17 09/05/23 12:00 BP 130/86 09/05/23 12:00 Pulse Ox 100 09/05/23 12:00 O2 Del Method Nasal Cannula 09/05/23 09:15 O2 Flow Rate 3 09/05/23 09:15 FiO2 40 09/05/23 04:45 09/04/23 09/05/23 09/05/23 22:59 06:59 14:59 Intake Total 590 / 1420 600 / 2020 480 / 480 Output Total 0 / 0 Balance 590 / 1420 600 / 2020 480 / 480 Weight last 48 hrs Weight 102.257 kg Weight 99.972 kg Physical Exam 2 Const: COMMON NORMALS: no acute distress and patient oriented x3 Resp: COMMON NORMALS: normal respiratory effort, No retractions and No use of accessory muscles AUSCULTATION: crackles and wheezes Cardio: COMMON NORMALS: regular rate, regular rhythm, S1 normal heart sound present and S2 normal heart sound present RATE: regular rate RHYTHM: r egular rhythm HEART SOUNDS: S1 normal heart sound present and S2 normal heart sound present GI: COMMON NORMALS: Normal to inspection, nondistended, normoactive bowel sounds present and non-tender Extremity: COMMON NORMALS: no pedal edema Neuro: COMMON NORMALS: patient oriented x3 Psych: COMMON NORMALS: mental status grossly normal Data 09/05/23 02:23 09/05/23 02:23 Micro: Microbiology 09/04/23 07:42 Gram Stain - Final Lung Right Lower Lobe 08/27/23 14:45 Blood Culture - Final Blood A&P Assessment and plan (1) Acute hypoxic on chronic hypercapnic respiratory failure: (2) Pneumonia: Qualifiers: Laterality: bilateral Lung location: unspecified part of lung P neumonia type: due to unspecified organism Qualified Code(s): J18.9 - Pneumonia, unspecified organism (3) Pleural effusion, right: (4) Atrial fibrillation with RVR: (5) Hypothyroidism: Qualifiers: Hypothyroidism type: unspecified Qualified Code(s): E03.9 - Hypothyroidism, unspecified (6) CKD (chronic kidney disease): (7) SOB (shortness of breath): (8) Breast cancer, left: (9) Systolic CHF: (10) Aortic stenosis: (11) Moderate pulmonary hypertension: (12) Mitral regurgitation: (13) Complete atelectasis of right lung: Plan Complete opacification of right lung -Did not improve with hypertonic saline, Mucomyst, chest vest therapy ? Underwent bronchoscopy ? Patient was found to have thick mucus secretions throughout the left bronchial tree, copious thick mucus secretions blocking the right mainstem bronchus, mucosa significantly edematous and bronchus intermedius, right lower lobe, right middle lobe segments, -Concerns for silent aspiration -Chest x-ray this morning, continues to show right hemidiaphragm elevation, right pleural effusion, moderate CHF ? Placed on aspiration precautions, dysphagia level 4 diet, speech therapy eval ? Plan for a modified barium swallow today ? Start prednisone 40 mg daily, spoke to pulmonary Acute kidney injury on CKD, ? Creatinine 1.4 ? Stop lisinopril, stop hydrochlorothiazide Hyponatremia, ? Monitor serum sodium, 129 Acute hypoxic hypercarbic respiratory failure ?etiology: ? pitting edema, right pleural effusion, ? Cannot rule out underlying pneumonia ct angiogram -IMPRESSION: 1. Moderate right-sided and trace-small left-sided pleural effusions. 2. Right middle lobe atelectasis. Pulmonary clinic follow-up is recommended. Consider follow-up outpatient bronchoscopy. 3. No evidence of PE or acute aortic abnormality. 4. Mild dilation of the pulmonary trunk to 3.0 cm which can be seen with pulmonary arterial hypertension. ? Plan ? Continue BiPAP therapy, patient would clinically benefit from BiPAP therapy due to underlying diastolic CHF,fluid overload, elevated BNP ?monitor respiratory status closely ?continue DuoNeb -For now continue meropenem, for possible aspiration pneumonia -Has right pleural effusion, ultrasound thoracocentesis, has a history of left- sided breast cancer, not enough to drain for therapeutic purposes as per radiology, Aortic stenosis Severe, low gradient , normal flow aortic valve stenosis, mean gradient 7.9 mmHg, BEBETO 0.83 cm squared. Moderate pulomnary hypertension -will monitor closely -neeeds outpatient pulmonary follow up Right pleural effusion -Right pleural effusion thoracocentesis, ultrasound no significant fluid to drain ? Pleural fluid analysis A-fib with RVR ? A-fib likely difficult to control given aortic stenosis ? Currently heart rate well-controlled, ? 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 History of breast cancer Annie ?needs an outpatient follow-up for PET scan, oncology follow-up NSTEMI ? No chest pain complaints, ? Serial EKGs, serial troponins, telemetry monitoring, ?SCDs for DVT prophylaxis, full code Plan for today continue prednisone, continue antibiotics, low-dose Lasix, modified barium swallow Attestations 2 Medical Necessity Statement*: Patient requires hospitalization for acute hypoxic respiratory failure Diagnoses Acute hypoxic on chronic hypercapnic respiratory failure J96.01; J96.12 Pneumonia J18.9 Laterality: bilateral Lung location: unspecified part of lung Pneumonia type: due to unspecified organism Pleural effusion, right J90 Atrial fibrillation with RVR I48.91 Hypothyroidism, unspecified type E03.9 Hypothyroidism type: unspecified CKD (chronic kidney disease) N18.9 SOB (shortness of breath) R06.02 Breast cancer, left C50.912 Systolic CHF I50.20 Aortic stenosis I35.0 Moderate pulmonary hypertension I27.20 Mitral regurgitation I34.0 Complete atelectasis of right lung J98.11
[2023-09-05] MEDS: acetaminophen 325 mg Tablet 650 MG PO (16:09)
[2023-09-05] MEDS: atorvastatin 40 mg Tablet 20 MG PO (20:47)
--- NOTE | 2023-09-05 20:54 | P.PN_ITS ---
Subjective 2 Subjective: Patient is feeling better. No chest pain. Vitals/I&O/Wt Last Vital Signs Temp 97.7 F 09/05/23 19:29 Pulse 96 09/05/23 19:29 Resp 16 09/05/23 19:29 BP 132/88 09/05/23 19:29 Pulse Ox 93 09/05/23 19:29 O2 Del Method Nasal Cannula 09/05/23 19:29 O2 Flow Rate 2 09/05/23 19:29 FiO2 40 09/05/23 04:45 09/05/23 09/05/23 09/05/23 06:59 14:59 22:59 Intake Total 2019 480 / 480 290 / 770 Balance 2019 480 / 480 290 / 770 Weight last 48 hrs Weight 225 lb 7 oz Weight 220 lb 6.4 oz Physical Exam 2 Narrative: GENERAL: Patient is alert, awake and oriented x3. [] NECK: No jugular vein distension. [] HEENT: No cyanosis. No icterus. No pallor. [] HEART: Irregularly irregular LUNGS:Diminished air entry CENTRAL NERVOUS SYSTEM: Grossly nonfocal. [] EXTREMITIES: Lower extremities with 1+ edema bilaterally. [] Data 09/06/23 05:48 09/06/23 05:48 Micro: Microbiology 09/04/23 16:02 Gram Stain - Final Sputum - Expectorated Sputum Sputum Culture - Preliminary 09/04/23 07:42 Gram Stain - Final Lung Right Lower Lobe Bronchial Washings Culture - Preliminary A&P Assessment and plan (1) Congestive heart failure: (2) Moderate pulmonary hypertension: (3) Chronic respiratory failure: (4) Atrial fibrillation with RVR: (5) Aortic stenosis: (6) PAD (peripheral artery disease): (7) Essential (primary) hypertension: (8) Mixed hyperlipidemia: (9) Mitral regurgitation: Plan Patient is stable from cardiology standpoint. Continue current medications Outpatient cardiac workup for valves. Thank you for involving us with care of this patient. We will continue to follow. Please call with questions Attestations 2 Medical Necessity Statement*: Care expected to cross 2 midnights. Coding Level of Care Code Acute Code for [facility] Fwd Diagnoses Congestive heart failure I50.9 Moderate pulmonary hypertension I27.20 Chronic respiratory failure J96.10 Atrial fibrillation with RVR I48.91 Aortic stenosis I35.0 PAD (peripheral artery disease) I73.9 Essential (primary) hypertension I10 Mixed hyperlipidemia E78.2 Mitral regurgitation I34.0
[2023-09-06] VITALS (15 sets, daily range): BP systolic 122–153; BP diastolic 78–90; PULSE 73–103; RESP 15–18; TEMP 36.5–36.7; O2SAT 91–100
--- NOTE | 2023-09-06 00:41 | PC.NURSE ---
Report given to VIBHA Brown.
--- NOTE | 2023-09-06 02:43 | PC.NURSE ---
Assumed pt care at this time. Pt is resting in bed on Bipap with eyes closed. No signs of distress.
[2023-09-06] MEDS: ipratropium-albuterol 3 mL Neb INHALATION ×4 (03:27→19:57)
[2023-09-06] MEDS: apixaban 5 mg Tablet PO ×2 (05:00→16:59)
[2023-09-06] MEDS: levothyroxine 125 mcg Tablet PO (05:00)
[2023-09-06] MEDS: dilTIAZem 30 mg Tablet PO ×4 (05:00→22:55)
[2023-09-06 06:05] LABS: Hematocrit 33.9 % (36-47); Lymphocytes # 1.3 10^3/uL (0.8-4.8); Lymphocytes % 15.4 %; Mean Corpuscular HGB Conc 30.7 g/dL (30-55); Mean Corpuscular Hemoglobin 28.5 pg (27-33); Mean Corpuscular Volume 92.9 fl (85-98); Mean Platelet Volume 10.2 fL (7.4-10.4); Monocytes # 0.8 10^3/uL (0.2-0.9); Monocytes % 9.6 %; Neutrophils # 6.48 10^3/uL (1.8-7.7); Neutrophils % 74.5 %; Nucleated Red Blood Cells % 0 %; Platelet Count 191 10^3/cmm (157-399); Red Blood Count 3.65 10^6/uL (3.85-5.65); Red Cell Distribution Width 13.9 % (12.1-15.1); White Blood Count 8.69 10^3/uL (3.29-11.43)
[2023-09-06 06:29] LABS: Alanine Aminotransferase 11 U/L (0-33); Albumin Level 3.6 g/dL (3.5-5.2); Alkaline Phosphatase 50 U/L (35-105); Anion Gap 9.8 (5-19); Aspartate Amino Transferase 16 U/L (0-32); Blood Urea Nitrogen 52 mg/dL (8-23); Calcium 7.6 mg/dL (8.5-10.5); Carbon Dioxide 35 mmol/L (22-29); Chloride 92 mmol/L (98-107); Globulin 2.3 g/dL (1.3-4.6); Glucose 107 mg/dL (65-115); Magnesium 2.3 mg/dL (1.7-2.3); Osmolality Calculated 289 mOsm/kg (285-295); Phosphorus 3.2 mg/dL (2.5-4.5); Potassium 4.8 mmol/L (3.5-5.1); Sodium 132 mmol/L (136-145); Total Bilirubin 0.5 mg/dL (0.15-1.2); Total Protein 5.9 g/dL (6.6-8.7)
[2023-09-06 06:38] LABS: NT Pro B Type Natriuretic Pept 8456 pg/mL (0-450); Procalcitonin 0.05 ng/mL (0-0.5)
[2023-09-06] MEDS: sodium chloride 1 gm Tablet PO ×2 (08:53→16:59)
[2023-09-06] MEDS: FUROsemide 10 mg/mL SDV 4mL 40 MG IVP ×2 (08:53→16:58)
[2023-09-06] MEDS: metoprolol tartrate 50 mg Tablet 75 MG PO ×2 (08:54→16:59)
[2023-09-06] MEDS: cloNIDine 0.1 mg Tablet PO ×2 (08:54→16:58)
[2023-09-06] MEDS: predniSONE 20 mg Tablet 40 MG PO (08:54)
[2023-09-06] MEDS: aspirin 81 mg EC Tablet PO (08:54)
[2023-09-06] MEDS: pantoprazole DR 40 mg Tablet PO (08:54)
[2023-09-06] MEDS: acetylcysteine 200 mg/mL SDV 4 mL 100 MG INHALATION ×2 (09:15→14:33)
--- NOTE | 2023-09-06 10:25 | PM.PN ---
Subjective Subjective: Patient is overall stable. Denies chest pain. Shortness of breath is improved. Vitals/I&O/Wt Last Vital Signs Temp 97.7 F 09/06/23 07:33 Pulse 88 09/06/23 08:00 Resp 18 09/06/23 08:00 BP 134/78 09/06/23 08:54 Pulse Ox 94 09/06/23 08:00 O2 Del Method Nasal Cannula 09/06/23 08:00 O2 Flow Rate 3 09/06/23 08:00 FiO2 40 09/06/23 03:30 09/05/23 09/06/23 09/06/23 22:59 06:59 14:59 Intake Total 790 / 1270 250 / 1520 Balance 790 / 1270 250 / 1520 Weight last 48 hrs Weight 223 lb 2 oz Weight 225 lb 7 oz Physical Exam Narrative: GENERAL: Patient is alert, awake and oriented x3. [] NECK: No jugular vein distension. [] HEENT: No cyanosis. No icterus. No pallor. [] HEART: Irregularly irregular LUNGS:Diminished air entry CENTRAL NERVOUS SYSTEM: Grossly nonfocal. [] EXTREMITIES: Lower extremities with 1+ edema bilaterally. [] Data 09/07/23 06:38 09/07/23 06:38 Micro: Microbiology 09/04/23 16:02 Gram Stain - Final Sputum - Expectorated Sputum Sputum Culture - Preliminary 09/04/23 07:42 Gram Stain - Final Lung Right Lower Lobe Bronchial Washings Culture - Preliminary A&P Assessment and plan (1) Congestive heart failure: (2) Moderate pulmonary hypertension: (3) Chronic respiratory failure: (4) Atrial fibrillation with RVR: (5) Aortic stenosis: (6) PAD (peripheral artery disease): (7) Essential (primary) hypertension: (8) Mixed hyperlipidemia: (9) Mitral regurgitation: Plan Patient's renal function is still elevated with elevated BUN. IV hydration for today. Monitor renal function Cardiac workup as outpatient. Thank you for involving us with care of this patient. We will continue to follow. Please call with questions Attestations Medical Necessity Statement*: Care expected to cross 2 midnights Coding Level of Care Code Acute Code for [facility] Fwd Diagnoses Congestive heart failure I50.9 Moderate pulmonary hypertension I27.20 Chronic respiratory failure J96.10 Atrial fibrillation with RVR I48.91 Aortic stenosis I35.0 PAD (peripheral artery disease) I73.9 Essential (primary) hypertension I10 Mixed hyperlipidemia E78.2 Mitral regurgitation I34.0
[2023-09-06] MEDS: meropenem 1,000 MG in sodium chloride 0.9% (plus) 50 ML 100 MG IV ×2 (10:48→22:55)
[2023-09-06] MEDS: nystatin 100,000 unit/mL UDC 5 mL 100000 UNIT PO ×3 (12:13→20:38)
--- NOTE | 2023-09-06 15:26 | P.PN_ITS ---
Subjective 2 Subjective: Patient was seen this morning, she is sitting up to side of the bed, does report shortness of breath, no chest pain, no palpitations, no lightheadedness Vitals/I&O/Wt Last Vital Signs Temp 97.7 F 09/06/23 07:33 Pulse 91 09/06/23 14:00 Resp 18 09/06/23 14:00 BP 122/85 09/06/23 11:47 Pulse Ox 95 09/06/23 14:00 O2 Del Method Nasal Cannula 09/06/23 14:00 O2 Flow Rate 2 09/06/23 14:00 FiO2 40 09/06/23 03:30 09/06/23 09/06/23 09/06/23 06:59 14:59 22:59 Intake Total 250 / 1520 170 / 170 Balance 250 / 1520 170 / 170 Weight last 48 hrs Weight 101.208 kg Weight 102.257 kg Physical Exam 2 Const: COMMON NORMALS: no acute distress and patient oriented x3 Resp: COMMON NORMALS: normal respiratory effort, No retractions, No use of accessory muscles and clear to auscultation bilaterally AUSCULTATION: clear to auscultation bilaterally Cardio: COMMON NORMALS: regular rate, regular rhythm, S1 normal heart sound present and S2 normal heart sound present RATE: regular rate RHYTHM: r egular rhythm HEART SOUNDS: S1 normal heart sound present and S2 normal heart sound present GI: COMMON NORMALS: Normal to inspection, nondistended, normoactive bowel sounds present and non-tender Extremity: NARRATIVE EXTREMITY EXAM: 1+ pitting edema Neuro: COMMON NORMALS: patient oriented x3 Psych: COMMON NORMALS: mental status grossly normal Data 09/06/23 05:48 09/06/23 05:48 Micro: Microbiology 09/04/23 16:02 Gram Stain - Final Sputum - Expectorated Sputum Sputum Culture - Preliminary 09/04/23 07:42 Gram Stain - Final Lung Right Lower Lobe Bronchial Washings Culture - Preliminary A&P Assessment and plan (1) Acute hypoxic on chronic hypercapnic respiratory failure: (2) Pneumonia: Qualifiers: Laterality: bilateral Lung location: unspecified part of lung P neumonia type: due to unspecified organism Qualified Code(s): J18.9 - Pneumonia, unspecified organism (3) Pleural effusion, right: (4) Atrial fibrillation with RVR: (5) Hypothyroidism: Qualifiers: Hypothyroidism type: unspecified Qualified Code(s): E03.9 - Hypothyroidism, unspecified (6) CKD (chronic kidney disease): (7) SOB (shortness of breath): (8) Breast cancer, left: (9) Systolic CHF: (10) Aortic stenosis: (11) Moderate pulmonary hypertension: (12) Mitral regurgitation: (13) Complete atelectasis of right lung: Plan Complete opacification of right lung -Did not improve with hypertonic saline, Mucomyst, chest vest therapy ? Underwent bronchoscopy ? Patient was found to have thick mucus secretions throughout the left bronchial tree, copious thick mucus secretions blocking the right mainstem bronchus, mucosa significantly edematous and bronchus intermedius, right lower lobe, right middle lobe segments, -Concerns for silent aspiration -Chest x-ray this morning, continues to show right hemidiaphragm elevation, right pleural effusion, moderate CHF ? Status post modified barium swallow, placed on aspiration precautions, dysphagia level 4 diet, speech therapy eval ? Start prednisone 40 mg daily, spoke to pulmonary Diastolic CHF exacerbation, 2 doses of IV Lasix today Acute kidney injury on CKD, ? Creatinine 1.4 ? Stop lisinopril, stop hydrochlorothiazide Hyponatremia, ? Monitor serum sodium, 132 Acute hypoxic hypercarbic respiratory failure ?etiology: ? pitting edema, right pleural effusion, diastolic CHF exacerbation ? Cannot rule out underlying pneumonia ct angiogram -IMPRESSION: 1. Moderate right-sided and trace-small left-sided pleural effusions. 2. Right middle lobe atelectasis. Pulmonary clinic follow-up is recommended. Consider follow-up outpatient bronchoscopy. 3. No evidence of PE or acute aortic abnormality. 4. Mild dilation of the pulmonary trunk to 3.0 cm which can be seen with pulmonary arterial hypertension. ? Plan ? Continue BiPAP therapy, patient would clinically benefit from BiPAP therapy due to underlying diastolic CHF,fluid overload, elevated BNP ?monitor respiratory status closely ?continue DuoNeb -For now continue meropenem, for possible aspiration pneumonia -Has right pleural effusion, ultrasound thoracocentesis, has a history of left- sided breast cancer, not enough to drain for therapeutic purposes as per radiology, Aortic stenosis Severe, low gradient , normal flow aortic valve stenosis, mean gradient 7.9 mmHg, BEBTEO 0.83 cm squared. Moderate pulomnary hypertension -will monitor closely -neeeds outpatient pulmonary follow up Right pleural effusion -Right pleural effusion thoracocentesis, ultrasound no significant fluid to drain ? Pleural fluid analysis A-fib with RVR ? A-fib likely difficult to control given aortic stenosis ? Currently heart rate well-controlled, ? 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 History of breast cancer Annie ?needs an outpatient follow-up for PET scan, oncology follow-up NSTEMI ? No chest pain complaints, ? Serial EKGs, serial troponins, telemetry monitoring, ?SCDs for DVT prophylaxis, full code Plan for today continue prednisone, continue antibiotics, 1 dose of IV Lasix with possible another dose in the evening based on clinical Attestations 2 Medical Necessity Statement*: Patient requires hospitalization for shortness of breath, respiratory failure, fluid overload requiring diuresis Diagnoses Acute hypoxic on chronic hypercapnic respiratory failure J96.01; J96.12 Pneumonia J18.9 Laterality: bilateral Lung location: unspecified part of lung Pneumonia type: due to unspecified organism Pleural effusion, right J90 Atrial fibrillation with RVR I48.91 Hypothyroidism, unspecified type E03.9 Hypothyroidism type: unspecified CKD (chronic kidney disease) N18.9 SOB (shortness of breath) R06.02 Breast cancer, left C50.912 Systolic CHF I50.20 Aortic stenosis I35.0 Moderate pulmonary hypertension I27.20 Mitral regurgitation I34.0 Complete atelectasis of right lung J98.11
[2023-09-06] MEDS: potassium chloride ER 20 mEq Tablet 40 MEQ PO (16:59)
[2023-09-06] MEDS: atorvastatin 40 mg Tablet 20 MG PO (20:38)
[2023-09-07] VITALS (17 sets, daily range): BP systolic 121–133; BP diastolic 71–87; PULSE 77–117; RESP 14–25; TEMP 36.5–36.9; O2SAT 91–100
[2023-09-07] MEDS: ipratropium-albuterol 3 mL Neb INHALATION ×4 (03:36→20:48)
[2023-09-07] MEDS: apixaban 5 mg Tablet PO ×2 (04:55→18:02)
[2023-09-07] MEDS: levothyroxine 125 mcg Tablet PO (04:55)
[2023-09-07] MEDS: dilTIAZem 30 mg Tablet PO ×4 (04:55→23:25)
[2023-09-07 07:07] LABS: Eosinophils % 0.1 %; Hematocrit 35.7 % (36-47); Lymphocytes # 1.7 10^3/uL (0.8-4.8); Lymphocytes % 16.8 %; Mean Corpuscular HGB Conc 30.5 g/dL (30-55); Mean Corpuscular Hemoglobin 28.7 pg (27-33); Mean Corpuscular Volume 93.9 fl (85-98); Mean Platelet Volume 10.6 fL (7.4-10.4); Monocytes # 1.1 10^3/uL (0.2-0.9); Monocytes % 10.4 %; Neutrophils # 7.42 10^3/uL (1.8-7.7); Neutrophils % 72.3 %; Nucleated Red Blood Cells % 0 %; Platelet Count 218 10^3/cmm (157-399); Red Cell Distribution Width 14.1 % (12.1-15.1); White Blood Count 10.27 10^3/uL (3.29-11.43)
[2023-09-07 07:38] LABS: Alanine Aminotransferase 12 U/L (0-33); Albumin Level 3.6 g/dL (3.5-5.2); Alkaline Phosphatase 53 U/L (35-105); Anion Gap 12.9 (5-19); Aspartate Amino Transferase 17 U/L (0-32); Blood Urea Nitrogen 52 mg/dL (8-23); Calcium 7.9 mg/dL (8.5-10.5); Carbon Dioxide 35 mmol/L (22-29); Chloride 93 mmol/L (98-107); Globulin 2.1 g/dL (1.3-4.6); Glucose 94 mg/dL (65-115); Magnesium 2.1 mg/dL (1.7-2.3); Osmolality Calculated 296 mOsm/kg (285-295); Phosphorus 2.8 mg/dL (2.5-4.5); Potassium 4.9 mmol/L (3.5-5.1); Sodium 136 mmol/L (136-145); Total Bilirubin 0.5 mg/dL (0.15-1.2); Total Protein 5.7 g/dL (6.6-8.7)
[2023-09-07 07:39] LABS: NT Pro B Type Natriuretic Pept 7371 pg/mL (0-450); Procalcitonin 0.06 ng/mL (0-0.5)
[2023-09-07] MEDS: nystatin 100,000 unit/mL UDC 5 mL 100000 UNIT PO ×3 (09:40→23:25)
[2023-09-07] MEDS: cloNIDine 0.1 mg Tablet PO ×2 (09:40→18:02)
[2023-09-07] MEDS: pantoprazole DR 40 mg Tablet PO (09:40)
[2023-09-07] MEDS: predniSONE 20 mg Tablet 40 MG PO (09:40)
[2023-09-07] MEDS: potassium chloride ER 20 mEq Tablet PO (09:40)
[2023-09-07] MEDS: aspirin 81 mg EC Tablet PO (09:41)
[2023-09-07] MEDS: FUROsemide 10 mg/mL SDV 4mL 40 MG IVP ×2 (09:41→18:03)
[2023-09-07] MEDS: metoprolol tartrate 50 mg Tablet 75 MG PO ×2 (09:41→18:03)
[2023-09-07] MEDS: sodium chloride 1 gm Tablet PO ×2 (09:41→18:02)
--- NOTE | 2023-09-07 10:48 | P.PN_ITS ---
Subjective 2 Subjective: Patient is doing better. No chest pain Vitals/I&O/Wt Last Vital Signs Temp 97.9 F 09/07/23 04:11 Pulse 91 09/07/23 07:43 Resp 22 H 09/07/23 07:35 BP 133/83 09/07/23 09:40 Pulse Ox 95 09/07/23 07:35 O2 Del Method Nasal Cannula 09/07/23 07:35 O2 Flow Rate 2 09/07/23 07:35 FiO2 40 09/07/23 03:38 09/06/23 09/07/23 09/07/23 22:59 06:59 14:59 Intake Total 120 / 290 250 / 540 240 / 240 Output Total 0 / 0 Balance 120 / 290 250 / 540 240 / 240 Weight last 48 hrs Weight 218 lb 8 oz Weight 223 lb 2 oz Physical Exam 2 Narrative: GENERAL: Patient is alert, awake and oriented x3. [] NECK: No jugular vein distension. [] HEENT: No cyanosis. No icterus. No pallor. [] HEART: Irregularly irregular LUNGS:Diminished air entry CENTRAL NERVOUS SYSTEM: Grossly nonfocal. [] EXTREMITIES: Lower extremities with 1+ edema bilaterally. [] Data 09/09/23 05:49 09/09/23 05:49 Micro: Microbiology 09/04/23 07:42 Gram Stain - Final Lung Right Lower Lobe Bronchial Washings Culture - Final 09/04/23 16:02 Gram Stain - Final Sputum - Expectorated Sputum Sputum Culture - Preliminary A&P Assessment and plan (1) Moderate pulmonary hypertension: (2) Acute hypoxic respiratory failure: (3) SOB (shortness of breath): (4) Mucus plugging of bronchi: (5) Complete atelectasis of right lung: (6) Chronic respiratory failure: (7) Congestive heart failure: (8) Atrial fibrillation with RVR: (9) Aortic stenosis: (10) PAD (peripheral artery disease): (11) Essential (primary) hypertension: (12) Mixed hyperlipidemia: (13) Mitral regurgitation: Plan Patient's breathing status is stable. Monitor renal function.. Cardiac workup as outpatient. Thank you for involving us with care of this patient. Please call with questions Attestations 2 Medical Necessity Statement*: Care expected to cross 2 midnights. Coding Level of Care Code Acute Code for Chg Fwd Diagnoses Moderate pulmonary hypertension I27.20 Acute hypoxic respiratory failure J96.01 SOB (shortness of breath) R06.02 Mucus plugging of bronchi T17.500A Complete atelectasis of right lung J98.11 Chronic respiratory failure J96.10 Congestive heart failure I50.9 Atrial fibrillation with RVR I48.91 Aortic stenosis I35.0 PAD (peripheral artery disease) I73.9 Essential (primary) hypertension I10 Mixed hyperlipidemia E78.2 Mitral regurgitation I34.0
--- NOTE | 2023-09-07 13:32 | P.PN_ITS ---
Subjective 2 Subjective: Patient was seen this morning, she feels better, continues to have pitting edema, she did have shortness of breath with exertion when she got up to the nurses station, her O2 saturations did drop into the low 80s, but they quickly recovered Vitals/I&O/Wt Last Vital Signs Temp 97.9 F 09/07/23 04:11 Pulse 77 09/07/23 13:31 Resp 20 H 09/07/23 13:24 BP 127/85 09/07/23 11:28 Pulse Ox 93 09/07/23 13:26 O2 Del Method BiPAP 09/07/23 13:24 O2 Flow Rate 2 09/07/23 11:00 FiO2 40 09/07/23 13:26 09/06/23 09/07/23 09/07/23 22:59 06:59 14:59 Intake Total 120 / 290 250 / 540 240 / 240 Output Total 0 / 0 Balance 120 / 290 250 / 540 240 / 240 Weight last 48 hrs Weight 99.11 kg Weight 101.208 kg Physical Exam 2 Const: COMMON NORMALS: no acute distress and patient oriented x3 Resp: COMMON NORMALS: normal respiratory effort, No retractions and No use of accessory muscles OTHER: Has crackles diffuse lung goldman Cardio: COMMON NORMALS: regular rate, regular rhythm, S1 normal heart sound present and S2 normal heart sound present RATE: regular rate RHYTHM: r egular rhythm HEART SOUNDS: S1 normal heart sound present and S2 normal heart sound present GI: COMMON NORMALS: Normal to inspection, nondistended, normoactive bowel sounds present and non-tender Extremity: NARRATIVE EXTREMITY EXAM: 2+ pitting edema Neuro: COMMON NORMALS: patient oriented x3 Psych: COMMON NORMALS: mental status grossly normal Data 09/07/23 06:38 09/07/23 06:38 Micro: Microbiology 09/04/23 07:42 Gram Stain - Final Lung Right Lower Lobe Bronchial Washings Culture - Final 09/04/23 16:02 Gram Stain - Final Sputum - Expectorated Sputum Sputum Culture - Preliminary A&P Assessment and plan (1) Acute hypoxic on chronic hypercapnic respiratory failure: (2) Pneumonia: Qualifiers: Laterality: bilateral Lung location: unspecified part of lung P neumonia type: due to unspecified organism Qualified Code(s): J18.9 - Pneumonia, unspecified organism (3) Pleural effusion, right: (4) Atrial fibrillation with RVR: (5) Hypothyroidism: Qualifiers: Hypothyroidism type: unspecified Qualified Code(s): E03.9 - Hypothyroidism, unspecified (6) CKD (chronic kidney disease): (7) SOB (shortness of breath): (8) Breast cancer, left: (9) Systolic CHF: (10) Aortic stenosis: (11) Moderate pulmonary hypertension: (12) Mitral regurgitation: (13) Complete atelectasis of right lung: Plan Complete opacification of right lung -Did not improve with hypertonic saline, Mucomyst, chest vest therapy ? Underwent bronchoscopy ? Patient was found to have thick mucus secretions throughout the left bronchial tree, copious thick mucus secretions blocking the right mainstem bronchus, mucosa significantly edematous and bronchus intermedius, right lower lobe, right middle lobe segments, -Concerns for silent aspiration -Chest x-ray this morning, continues to show right hemidiaphragm elevation, right pleural effusion, moderate CHF ? Status post modified barium swallow, placed on aspiration precautions, dysphagia level 4 diet, speech therapy eval ? prednisone 40 mg daily, spoke to pulmonary Diastolic CHF exacerbation, continues to be fluid overloaded, 2 doses of IV Lasix today with metolazone Acute kidney injury on CKD, ? Creatinine 1.4 ? Stop lisinopril, stop hydrochlorothiazide Hyponatremia, ? Monitor serum sodium, 132 Acute hypoxic hypercarbic respiratory failure ?etiology: ? pitting edema, right pleural effusion, diastolic CHF exacerbation ? Cannot rule out underlying pneumonia ct angiogram -IMPRESSION: 1. Moderate right-sided and trace-small left-sided pleural effusions. 2. Right middle lobe atelectasis. Pulmonary clinic follow-up is recommended. Consider follow-up outpatient bronchoscopy. 3. No evidence of PE or acute aortic abnormality. 4. Mild dilation of the pulmonary trunk to 3.0 cm which can be seen with pulmonary arterial hypertension. ? Plan ? Continue BiPAP therapy, patient would clinically benefit from BiPAP therapy due to underlying diastolic CHF,fluid overload, elevated BNP ?monitor respiratory status closely ?continue DuoNeb -Has completed 5 days of IV antibiotics, meropenem -Has right pleural effusion, ultrasound thoracocentesis, has a history of left- sided breast cancer, not enough to drain for therapeutic purposes as per radiology, Aortic stenosis Severe, low gradient , normal flow aortic valve stenosis, mean gradient 7.9 mmHg, BEBETO 0.83 cm squared. Moderate pulomnary hypertension -will monitor closely -neeeds outpatient pulmonary follow up Right pleural effusion -Right pleural effusion thoracocentesis, ultrasound no significant fluid to drain ? Pleural fluid analysis A-fib with RVR ? A-fib likely difficult to control given aortic stenosis ? Currently heart rate well-controlled, ? 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 History of breast cancer Annie ?needs an outpatient follow-up for PET scan, oncology follow-up NSTEMI ? No chest pain complaints, ? Serial EKGs, serial troponins, telemetry monitoring, ?SCDs for DVT prophylaxis, full code Plan for today continue IV diuresis, for fluid overload, diastolic CHF exacerbation Attestations 2 Medical Necessity Statement*: Patient requires hospitalization for diastolic CHF exacerbation Diagnoses Acute hypoxic on chronic hypercapnic respiratory failure J96.01; J96.12 Pneumonia J18.9 Laterality: bilateral Lung location: unspecified part of lung Pneumonia type: due to unspecified organism Pleural effusion, right J90 Atrial fibrillation with RVR I48.91 Hypothyroidism, unspecified type E03.9 Hypothyroidism type: unspecified CKD (chronic kidney disease) N18.9 SOB (shortness of breath) R06.02 Breast cancer, left C50.912 Systolic CHF I50.20 Aortic stenosis I35.0 Moderate pulmonary hypertension I27.20 Mitral regurgitation I34.0 Complete atelectasis of right lung J98.11
[2023-09-07] MEDS: metOLazone 5 MG Tablet PO (13:44)
[2023-09-07] MEDS: atorvastatin 40 mg Tablet 20 MG PO (23:24)
[2023-09-08] VITALS (17 sets, daily range): BP systolic 113–151; BP diastolic 71–93; PULSE 78–104; RESP 15–22; TEMP 36.2–36.7; O2SAT 90–99
[2023-09-08] MEDS: ipratropium-albuterol 3 mL Neb INHALATION ×4 (01:23→20:46)
[2023-09-08 05:26] LABS: Basophils % 0.1 %; Eosinophils % 0.1 %; Hematocrit 39.4 % (36-47); Lymphocytes # 1.9 10^3/uL (0.8-4.8); Lymphocytes % 15.5 %; Mean Corpuscular HGB Conc 30.7 g/dL (30-55); Mean Corpuscular Hemoglobin 28.3 pg (27-33); Mean Corpuscular Volume 92.1 fl (85-98); Mean Platelet Volume 10.3 fL (7.4-10.4); Monocytes # 0.9 10^3/uL (0.2-0.9); Monocytes % 7.1 %; Neutrophils # 9.33 10^3/uL (1.8-7.7); Neutrophils % 76.6 %; Nucleated Red Blood Cells % 0 %; Platelet Count 265 10^3/cmm (157-399); Red Blood Count 4.28 10^6/uL (3.85-5.65); Red Cell Distribution Width 13.9 % (12.1-15.1); White Blood Count 12.16 10^3/uL (3.29-11.43)
[2023-09-08] MEDS: dilTIAZem 30 mg Tablet PO ×4 (05:34→20:56)
[2023-09-08] MEDS: levothyroxine 125 mcg Tablet PO (05:34)
[2023-09-08] MEDS: apixaban 5 mg Tablet PO ×2 (05:34→18:25)
[2023-09-08 05:52] LABS: Alanine Aminotransferase 19 U/L (0-33); Alkaline Phosphatase 60 U/L (35-105); Anion Gap 15.5 (5-19); Aspartate Amino Transferase 23 U/L (0-32); Blood Urea Nitrogen 46 mg/dL (8-23); Calcium 8.2 mg/dL (8.5-10.5); Carbon Dioxide 37 mmol/L (22-29); Chloride 90 mmol/L (98-107); Globulin 2.6 g/dL (1.3-4.6); Glucose 111 mg/dL (65-115); Magnesium 1.9 mg/dL (1.7-2.3); Osmolality Calculated 299 mOsm/kg (285-295); Potassium 4.5 mmol/L (3.5-5.1); Sodium 138 mmol/L (136-145); Total Bilirubin 0.7 mg/dL (0.15-1.2); Total Protein 6.6 g/dL (6.6-8.7)
[2023-09-08 05:54] LABS: NT Pro B Type Natriuretic Pept 7219 pg/mL (0-450); Procalcitonin 0.07 ng/mL (0-0.5)
--- NOTE | 2023-09-08 07:00 | XRR_ITS ---
PROCEDURE INFORMATION: Exam: XR Chest Exam date and time: 09/08/2023 1:00 PM Age: 82 years old Clinical indication: Shortness of breath; Patient HX: SOB; Dyspnea TECHNIQUE: Imaging protocol: Radiologic exam of the chest. Views: 1 view. COMPARISON: CR XR chest 1V portable [id number] 09/05/2023 6:52 AM FINDINGS: Tubes, catheters and devices: Spinal stimulator. Lungs: See Heart/Mediastinum finding. Pleural spaces: Large right pleural effusion similar to prior exam. Heart/Mediastinum: Cardiomegaly and mild pulmonary vascular congestion. Bones/joints: Unremarkable. XR/XR chest 1V portable [id number] IMPRESSION: 1. Large right pleural effusion similar to prior exam. 2. Cardiomegaly and mild pulmonary vascular congestion. 3. Spinal stimulator.
[2023-09-08] MEDS: nystatin 100,000 unit/mL UDC 5 mL 100000 UNIT PO ×3 (08:39→20:56)
[2023-09-08] MEDS: predniSONE 20 mg Tablet 40 MG PO (08:40)
[2023-09-08] MEDS: metoprolol tartrate 50 mg Tablet 75 MG PO ×2 (08:40→18:26)
[2023-09-08] MEDS: pantoprazole DR 40 mg Tablet PO (08:40)
[2023-09-08] MEDS: cloNIDine 0.1 mg Tablet PO ×2 (08:41→18:38)
[2023-09-08] MEDS: aspirin 81 mg EC Tablet PO (08:42)
[2023-09-08] MEDS: sodium chloride 1 gm Tablet PO ×2 (08:42→18:26)
[2023-09-08] MEDS: metOLazone 5 MG Tablet PO (10:29)
[2023-09-08] MEDS: FUROsemide 10 mg/mL SDV 4mL 40 MG IVP ×2 (10:29→18:31)
[2023-09-08] MEDS: artificial tears Op Soln 15 mL Btl 1 DROP EYE-BOTH (14:31)
--- NOTE | 2023-09-08 16:14 | P.PN_ITS ---
Subjective 2 Subjective: Patient was seen this morning, her cough is improving, her shortness of breath is improving she continues to have pitting edema, Vitals/I&O/Wt Last Vital Signs Temp 97.8 F 09/08/23 12:24 Pulse 88 09/08/23 14:18 Resp 18 09/08/23 14:00 BP 113/76 09/08/23 12:24 Pulse Ox 90 09/08/23 14:00 O2 Del Method Nasal Cannula 09/08/23 14:00 O2 Flow Rate 2 09/08/23 14:00 FiO2 40 09/08/23 05:03 09/08/23 09/08/23 09/08/23 06:59 14:59 22:59 Intake Total 240 / 840 480 / 480 Output Total 950 / 1350 300 / 300 Balance -710 / -510 180 / 180 Weight last 48 hrs Weight 98.384 kg Weight 99.11 kg Physical Exam 2 Const: COMMON NORMALS: no acute distress and patient oriented x3 Resp: COMMON NORMALS: normal respiratory effort, No retractions, No use of accessory muscles and clear to auscultation bilaterally AUSCULTATION: clear to auscultation bilaterally Cardio: COMMON NORMALS: regular rate, regular rhythm, S1 normal heart sound present and S2 normal heart sound present RATE: regular rate RHYTHM: r egular rhythm HEART SOUNDS: S1 normal heart sound present and S2 normal heart sound present GI: COMMON NORMALS: Normal to inspection, nondistended, normoactive bowel sounds present and non-tender Extremity: NARRATIVE EXTREMITY EXAM: 1+ pitting edema Neuro: COMMON NORMALS: patient oriented x3 Psych: COMMON NORMALS: mental status grossly normal Data 09/08/23 05:09 09/08/23 05:09 Micro: Microbiology 09/04/23 16:02 Gram Stain - Final Sputum - Expectorated Sputum Sputum Culture - Final Staphylococcus epidermidis A&P Assessment and plan (1) Acute hypoxic on chronic hypercapnic respiratory failure: (2) Pneumonia: Qualifiers: Laterality: bilateral Lung location: unspecified part of lung P neumonia type: due to unspecified organism Qualified Code(s): J18.9 - Pneumonia, unspecified organism (3) Pleural effusion, right: (4) Atrial fibrillation with RVR: (5) Hypothyroidism: Qualifiers: Hypothyroidism type: unspecified Qualified Code(s): E03.9 - Hypothyroidism, unspecified (6) CKD (chronic kidney disease): (7) SOB (shortness of breath): (8) Breast cancer, left: (9) Systolic CHF: (10) Aortic stenosis: (11) Moderate pulmonary hypertension: (12) Mitral regurgitation: (13) Complete atelectasis of right lung: Plan Complete opacification of right lung -Did not improve with hypertonic saline, Mucomyst, chest vest therapy ? Underwent bronchoscopy ? Patient was found to have thick mucus secretions throughout the left bronchial tree, copious thick mucus secretions blocking the right mainstem bronchus, mucosa significantly edematous and bronchus intermedius, right lower lobe, right middle lobe segments, -Concerns for silent aspiration -Chest x-ray this morning, continues to show right hemidiaphragm elevation, right pleural effusion, moderate CHF ? Status post modified barium swallow, placed on aspiration precautions, dysphagia level 4 diet, speech therapy eval ? prednisone 40 mg daily, spoke to pulmonary Diastolic CHF exacerbation, continues to be fluid overloaded, 2 doses of IV Lasix today with metolazone Acute kidney injury on CKD, ? Creatinine 1.4 ? Stop lisinopril, stop hydrochlorothiazide Hyponatremia, ? Monitor serum sodium, 132 Acute hypoxic hypercarbic respiratory failure ?etiology: ? pitting edema, right pleural effusion, diastolic CHF exacerbation ? Cannot rule out underlying pneumonia ct angiogram -IMPRESSION: 1. Moderate right-sided and trace-small left-sided pleural effusions. 2. Right middle lobe atelectasis. Pulmonary clinic follow-up is recommended. Consider follow-up outpatient bronchoscopy. 3. No evidence of PE or acute aortic abnormality. 4. Mild dilation of the pulmonary trunk to 3.0 cm which can be seen with pulmonary arterial hypertension. ? Plan ? Continue BiPAP therapy, patient would clinically benefit from BiPAP therapy due to underlying diastolic CHF,fluid overload, elevated BNP ?monitor respiratory status closely ?continue DuoNeb -Has completed 5 days of IV antibiotics, meropenem -Has right pleural effusion, ultrasound thoracocentesis, has a history of left- sided breast cancer, not enough to drain for therapeutic purposes as per radiology, Aortic stenosis Severe, low gradient , normal flow aortic valve stenosis, mean gradient 7.9 mmHg, BEBETO 0.83 cm squared. Moderate pulomnary hypertension -will monitor closely -neeeds outpatient pulmonary follow up Right pleural effusion -Right pleural effusion thoracocentesis, ultrasound no significant fluid to drain ? Pleural fluid analysis A-fib with RVR ? A-fib likely difficult to control given aortic stenosis ? Currently heart rate well-controlled, ? 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 History of breast cancer Annie ?needs an outpatient follow-up for PET scan, oncology follow-up NSTEMI ? No chest pain complaints, ? Serial EKGs, serial troponins, telemetry monitoring, ?SCDs for DVT prophylaxis, full code Plan for today continues to have diastolic CHF exacerbation, fluid overload, will will diurese her with Lasix, metolazone Attestations 2 Medical Necessity Statement*: Patient requires hospitalization for fluid overload requiring further IV diuresis Diagnoses Acute hypoxic on chronic hypercapnic respiratory failure J96.01; J96.12 Pneumonia J18.9 Laterality: bilateral Lung location: unspecified part of lung Pneumonia type: due to unspecified organism Pleural effusion, right J90 Atrial fibrillation with RVR I48.91 Hypothyroidism, unspecified type E03.9 Hypothyroidism type: unspecified CKD (chronic kidney disease) N18.9 SOB (shortness of breath) R06.02 Breast cancer, left C50.912 Systolic CHF I50.20 Aortic stenosis I35.0 Moderate pulmonary hypertension I27.20 Mitral regurgitation I34.0 Complete atelectasis of right lung J98.11
[2023-09-08] MEDS: potassium chloride ER 20 mEq Tablet 40 MEQ PO (18:27)
[2023-09-08] MEDS: doxycycline 100 mg Tablet PO (18:28)
[2023-09-08] MEDS: atorvastatin 40 mg Tablet 20 MG PO (20:55)
[2023-09-09] VITALS (10 sets, daily range): BP systolic 126–142; BP diastolic 76–90; PULSE 77–106; RESP 16–21; TEMP 36.1–36.6; O2SAT 93–97
[2023-09-09] MEDS: ipratropium-albuterol 3 mL Neb INHALATION ×2 (03:27→08:42)
[2023-09-09] MEDS: dilTIAZem 30 mg Tablet PO ×2 (05:25→10:56)
[2023-09-09] MEDS: apixaban 5 mg Tablet PO (05:25)
[2023-09-09] MEDS: levothyroxine 125 mcg Tablet PO (05:25)
[2023-09-09 06:05] LABS: Basophils % 0.1 %; Eosinophils % 0.1 %; Hematocrit 34.9 % (36-47); Lymphocytes % 18.1 %; Mean Corpuscular HGB Conc 31.2 g/dL (30-55); Mean Corpuscular Hemoglobin 28.3 pg (27-33); Mean Corpuscular Volume 90.6 fl (85-98); Mean Platelet Volume 10.5 fL (7.4-10.4); Monocytes # 0.9 10^3/uL (0.2-0.9); Monocytes % 7.8 %; Neutrophils # 8.25 10^3/uL (1.8-7.7); Neutrophils % 73.5 %; Nucleated Red Blood Cells % 0 %; Platelet Count 230 10^3/cmm (157-399); Red Blood Count 3.85 10^6/uL (3.85-5.65); White Blood Count 11.22 10^3/uL (3.29-11.43)
[2023-09-09 06:25] LABS: NT Pro B Type Natriuretic Pept 5912 pg/mL (0-450)
[2023-09-09 06:38] LABS: Magnesium 1.7 mg/dL (1.7-2.3); Phosphorus 3.3 mg/dL (2.5-4.5)
[2023-09-09 06:39] LABS: Alanine Aminotransferase 12 U/L (0-33); Albumin Level 3.6 g/dL (3.5-5.2); Alkaline Phosphatase 51 U/L (35-105); Anion Gap 10.4 (5-19); Aspartate Amino Transferase 16 U/L (0-32); Blood Urea Nitrogen 47 mg/dL (8-23); Carbon Dioxide 41 mmol/L (22-29); Chloride 86 mmol/L (98-107); Globulin 2.4 g/dL (1.3-4.6); Glucose 109 mg/dL (65-115); Osmolality Calculated 289 mOsm/kg (285-295); Potassium 4.4 mmol/L (3.5-5.1); Sodium 133 mmol/L (136-145); Total Bilirubin 0.8 mg/dL (0.15-1.2)
[2023-09-09] MEDS: aspirin 81 mg EC Tablet PO (09:12)
[2023-09-09] MEDS: doxycycline 100 mg Tablet PO (09:12)
[2023-09-09] MEDS: pantoprazole DR 40 mg Tablet PO (09:12)
[2023-09-09] MEDS: metoprolol tartrate 50 mg Tablet 75 MG PO (09:13)
[2023-09-09] MEDS: predniSONE 20 mg Tablet 40 MG PO (09:13)
[2023-09-09] MEDS: nystatin 100,000 unit/mL UDC 5 mL 100000 UNIT PO ×2 (09:13→12:15)
[2023-09-09] MEDS: cloNIDine 0.1 mg Tablet PO (09:13)
[2023-09-09] MEDS: sodium chloride 1 gm Tablet PO (09:13)
[2023-09-09] MEDS: FUROsemide 10 mg/mL SDV 4mL 40 MG IVP (09:18)
--- NOTE | 2023-09-09 13:38 | PM.DCS ---
Discharge Providers Date of Admission: 08/27/23 16:45 Date of Discharge: September 09, 2023 Attending Provider at Admission: Dilan Rivero MD Attending Provider at Discharge: Dilan Rivero MD Primary Care Provider: Jo Ledezma MD Diagnoses at Discharge Discharge Diagnosis (1) Acute hypoxic on chronic hypercapnic respiratory failure: Status: Acute (2) Pneumonia: Status: Acute Qualifiers: Laterality: bilateral Lung location: unspecified part of lung Pneumonia type: due to unspecified organism Qualified Code(s): J18.9 - Pneumonia, unspecified organism (3) Pleural effusion, right: Status: Acute (4) Atrial fibrillation with RVR: Status: Acute (5) Hypothyroidism: Status: Acute Qualifiers: Hypothyroidism type: unspecified Qualified Code(s): E03.9 - Hypothyroidism, unspecified (6) CKD (chronic kidney disease): Status: Acute (7) SOB (shortness of breath): Status: Acute (8) Breast cancer, left: Status: Acute (9) Systolic CHF: Status: Acute (10) Aortic stenosis: Status: Acute (11) Moderate pulmonary hypertension: Status: Acute (12) Mitral regurgitation: Status: Acute (13) Complete atelectasis of right lung: Status: Acute Reason for Visit Reason for Visit: sob Hospital Course Hospital Course Kelley Quezada is a 82 year old female with a past medical history of left breast cancer, hypertension, hyperlipidemia, who presents to [facility] due to shortness of breath, patient currently is on BiPAP, she is resting comfortably, alert awake, following all commands no respiratory distress distracted no nasal flaring no intercostal retractions he is able to speak full sentences without feeling short of breath, she is found to have hypercarbic hypoxic respiratory failure placed on BiPAP, found to have a right large pleural effusion she is receiving antibiotics, she tells me that recently she has been feeling increasingly short of breath, nonproductive cough, she has been feeling well for the last week or so she saw her primary care on the , she has a new oxygen requirements, she is now using 3 L, she normally does not use oxygen, no chest pain, she has been coughing, has a sore throat, she was also found to have new onset A-fib with RVR, currently heart rates are well-controlled, denies a prior history of atrial fibrillation, currently heart rates in the low 100 presented to [facility], had a complex hospitalization, please look at my last progress note for details For acute hypoxic respiratory failure, multifactorial, from opacification of right lung, acute on chronic obstruction secondary to mucous secretions, with pneumonia, with diastolic CHF exacerbation, with A-fib For complete opacification of right lung, did not improve with chest vest therapy, Mucomyst, hypertonic saline, pulmonary was consulted, underwent bronchoscopy, found to have atient was found to have thick mucus secretions throughout the left bronchial tree, copious thick mucus secretions blocking the right mainstem bronchus, mucosa significantly edematous and bronchus intermedius, right lower lobe, right middle lobe segments, Likely chronic silent aspiration, repeat chest x-rays continue to show opacification of the right lung despite bronchoscopy, underwent modified barium swallow, maintain on dysphagia level 4 diet, and extensive discussion with patient about her risk of recurrent hospitalizations, from respiratory failure, from chronic opacification of right lung due to persistent mucus buildup, recurrent pneumonias, morbidity mortality discussed, she voiced understanding, all questions answered. She will be discharged with BiPAP therapy, chest vest therapy, Mucomyst, hypertonic saline, with a close follow-up with pulmonary as outpatient. In terms of fluid buildup in the right lung, she had multiple chest ultrasounds, with less than 100 cc not amenable to drainage For diastolic CHF exacerbation, she was diuresed during the hospitalization, will be discharged on Lasix therapy 40 mg once daily with potassium replacement therapy For her pneumonia, she was managed with broad-spectrum antibiotic therapy, sputum culture shows staph epidermis likely contamination nonetheless discharged on doxycycline Patient was found to have aortic stenosis, follow-up with cardiology as outpatient Moderate pulm hypertension, follow-up with pulmonary Right pleural effusion, repeat ultrasound thoracocentesis shows less than 100 cc, not amenable to drainage, discharged on Lasix therapy A-fib with RVR, discharged on metoprolol, Cardizem, Eliquis therapy advised to monitor for bloody or black stools, She was also found to have a T9 vertebral sclerosis, 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 Peterson as outpatient for consideration of PET scan Physical Exam Const: COMMON NORMALS: no acute distress and patient oriented x3 Resp: COMMON NORMALS: normal respiratory effort, No retractions, No use of accessory muscles and clear to auscultation bilaterally AUSCULTATION: clear to auscultation bilaterally Cardio: COMMON NORMALS: regular rate, regular rhythm, S1 normal heart sound present and S2 normal heart sound present RATE: regular rate RHYTHM: regular rhythm HEART SOUNDS: S1 normal heart sound present and S2 normal heart sound present GI: COMMON NORMALS: Normal to inspection, nondistended, normoactive bowel sounds present and non-tender Extremity: COMMON NORMALS: no pedal edema Neuro: COMMON NORMALS: patient oriented x3 Psych: COMMON NORMALS: mental status grossly normal Discharge Data Studies Completed and Pending Completed Studies During Hospitalization Category Date Time Status CT angio chest PE protcl [id number] Stat Cat Scan 08/27/23 15:41 Completed CXRP [XR chest 1V portable [id number]] Routine Exams 09/04/23 08:23 Completed FL barium swallow modifd [id number] Routine Exams 09/05/23 11:03 Completed XR chest 1V portable [id number] Routine Exams 08/28/23 07:00 Completed XR chest 1V portable [id number] Routine Exams 09/02/23 15:39 Completed XR chest 1V portable [id number] Routine Exams 09/02/23 22:02 Completed XR chest 1V portable [id number] Routine Exams 09/03/23 06:00 Completed XR chest 1V portable [id number] Routine Exams 09/03/23 12:32 Completed XR chest 1V portable [id number] Routine Exams 09/04/23 06:00 Completed XR chest 1V portable [id number] Routine Exams 09/05/23 07:00 Completed XR chest 1V portable [id number] Routine Exams 09/08/23 07:00 Completed XR chest 1V portable [id number] Stat Exams 08/27/23 13:49 Completed Blood Cultures ([facility]) Routine Lab 08/27/23 14:45 Completed Blood Cultures ([facility]) Routine Lab 08/27/23 14:50 Completed Cytology [PTH] Routine Pth 09/04/23 07:42 Completed CV. echo complete* [id number] Routine Ultrasound 08/27/23 18:18 [place] chest [id number] Routine Ultrasound 08/28/23 18:18 [place] chest [id number] Routine Ultrasound 09/03/23 06:00 Completed Pending at discharge Category Date Time Status C Reactive Protein AM LABS Lab 09/10/23 04:00 Ordered C Reactive Protein AM LABS Lab 09/11/23 04:00 Ordered Complete Blood Count w/Auto AM LABS Lab 09/10/23 04:00 Ordered Complete Blood Count w/Auto AM LABS Lab 09/11/23 04:00 Ordered Comprehensive Metabolic Panel AM LABS Lab 09/10/23 04:00 Ordered Comprehensive Metabolic Panel AM LABS Lab 09/11/23 04:00 Ordered Magnesium AM LABS Lab 09/10/23 04:00 Ordered Magnesium AM LABS Lab 09/11/23 04:00 Ordered NT Pro B Type Natriuretic Pept QAM Lab 09/10/23 06:00 Ordered NT Pro B Type Natriuretic Pept QAM Lab 09/11/23 06:00 Ordered Phosphorus AM LABS Lab 09/10/23 04:00 Ordered Phosphorus AM LABS Lab 09/11/23 04:00 Ordered Pleural [Right Pleural Fluid Analysis] Routine Lab 08/27/23 18:18 Uncollected Radiology Impressions Chest CTA 08/27/23 15:41 IMPRESSION: 1. Moderate right-sided and trace-small left-sided pleural effusions. 2. Right middle lobe atelectasis. Pulmonary clinic follow-up is recommended. Consider follow-up outpatient bronchoscopy. 3. No evidence of PE or acute aortic abnormality. 4. Mild dilation of the pulmonary trunk to 3.0 cm which can be seen with pulmonary arterial hypertension. 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 Correlation with nuclear medicine bone scan or PET-CT is recommended. Findings discussed with Dr. Villar at 8:30 p.m. on 08/27/2023 Chest X-Ray 09/08/23 07:00 IMPRESSION: 1. Large right pleural effusion similar to prior exam. 2. Cardiomegaly and mild pulmonary vascular congestion. 3. Spinal stimulator. Laboratory Results WBC 11.22 10^3/uL (3.29-11.43) 09/09/23 05:49 RBC 3.85 10^6/uL (3.85-5.65) 09/09/23 05:49 Hgb 10.90 g/dL (11.27-16.99) L 09/09/23 05:49 Hct 34.9 % (36-47) L 09/09/23 05:49 MCV 90.6 fl (85-98) 09/09/23 05:49 MCH 28.3 pg (27-33) 09/09/23 05:49 MCHC 31.2 g/dL (30-55) 09/09/23 05:49 RDW 14.0 % (12.1-15.1) 09/09/23 05:49 Plt Count 230 10^3/cmm (157-399) 09/09/23 05:49 MPV 10.5 fL (7.4-10.4) H 09/09/23 05:49 Neut % (Auto) 73.5 % 09/09/23 05:49 Lymph % (Auto) 18.1 % 09/09/23 05:49 [place] % (Auto) 7.8 % 09/09/23 05:49 Eos % (Auto) 0.1 % 09/09/23 05:49 Baso % (Auto) 0.1 % 09/09/23 05:49 Neut # (Auto) 8.25 10^3/uL (1.8-7.7) H 09/09/23 05:49 Lymph # (Auto) 2.0 10^3/uL (0.8-4.8) 09/09/23 05:49 [place] # (Auto) 0.9 10^3/uL (0.2-0.9) 09/09/23 05:49 Eos # (Auto) 0.0 10^3/uL (0.0-0.8) 09/09/23 05:49 Baso # (Auto) 0.0 10^3/uL (0.0-0.1) 09/09/23 05:49 Nucleated RBC % (auto) 0 % 09/09/23 05:49 Nucleated RBCs # 0.0 /100WBC 09/09/23 05:49 PT 15.10 SECONDS (12.1-14.9) H 09/04/23 05:52 INR 1.15 (0.8-1.2) 09/04/23 05:52 Specimen Type Arterial 09/02/23 15:42 Sample Site Brachial, right 09/02/23 15:42 ABG pH 7.35 (7.35-7.45) 09/02/23 15:42 ABG pCO2 56.8 mmHg (35-45) H 09/02/23 15:42 ABG pO2 73.3 mmHg (80.0-100.0) L 09/02/23 15:42 ABG PO2/FiO2 Ratio 0 09/02/23 15:42 ABG HCO3 31.0 mmol/L (22-26) H 09/02/23 15:42 ABG O2 Saturation 96.1 09/02/23 15:42 ABG Base Excess 4.0 mmol/L (-2.0-2.0) H 09/02/23 15:42 Mikhail Test N/a 09/02/23 15:42 A-a O2 Gradient 11.2 mmHg (5-10) H 09/02/23 15:42 Hematocrit 35.6 % (37-47) L 09/02/23 15:42 Hgb O2 Saturation 94.1 % (95-100) L 09/02/23 15:42 Carboxyhemoglobin 1.7 %THgb (0.4-20.1) 09/02/23 15:42 Methemoglobin 0.4 % (0.4-1.5) 09/02/23 15:42 Total Hemoglobin 11.6 g/dL (12-16) L 09/02/23 15:42 Sodium 127.0 mmol/L (131-143) L 09/02/23 15:42 Potassium 4.1 mmol/L (3.5-5.0) 09/02/23 15:42 Glucose 123.0 mg/dL (70-115) H 09/02/23 15:42 Ionized Calcium 1.0 mmol/L (1.1-1.4) L 09/02/23 15:42 O2 Delivery Device Nc 09/02/23 15:42 O2 Liters/Min 3.0 % 09/02/23 15:42 FiO2 32.0 % 09/02/23 15:42 Tidal Volume 0.35 08/28/23 04:50 PEEP 8.0 cmH20 08/28/23 04:50 Preventative Maintenance Technician ID Amh 09/02/23 15:42 Sodium 133 mmol/L (136-145) L 09/09/23 05:49 Potassium 4.4 mmol/L (3.5-5.1) 09/09/23 05:49 Chloride 86 mmol/L (98-107) L 09/09/23 05:49 Carbon Dioxide 41 mmol/L (22-29) H 09/09/23 05:49 Anion Gap 10.4 (5-19) 09/09/23 05:49 BUN 47 mg/dL (8-23) H 09/09/23 05:49 Creatinine 1.4 mg/dL (0.5-0.9) H 09/09/23 05:49 GFR Calculation Not Reportable 09/09/23 05:49 Glucose 109 mg/dL (65-115) 09/09/23 05:49 POC Glucose 89 mg/dL (70-110) 08/28/23 03:42 Estimat Average Glucose 117 08/27/23 14:25 Hemoglobin A1c 5.7 % (4.0-6.0) 08/27/23 14:25 Calculated Osmolality 289 mOsm/kg (285-295) 09/09/23 05:49 Lactic Acid 1.5 mmol/L (0.5-2.2) 08/27/23 14:25 Lactate 0.9 mmol/L (0.5-2.2) 08/30/23 05:09 Calcium 8.0 mg/dL (8.5-10.5) L 09/09/23 05:49 Phosphorus 3.3 mg/dL (2.5-4.5) 09/09/23 05:49 Magnesium 1.7 mg/dL (1.7-2.3) 09/09/23 05:49 Total Bilirubin 0.8 mg/dL (0.15-1.2) 09/09/23 05:49 AST 16 U/L (0-32) 09/09/23 05:49 ALT 12 U/L (0-33) 09/09/23 05:49 Alkaline Phosphatase 51 U/L (35-105) 09/09/23 05:49 Creatine Kinase 26 U/L (26-192) 08/30/23 05:09 Troponin T Baseline 27 ng/L (0-10) H 08/27/23 14:25 Troponin T 120 Minute 30.21 ng/L (0-10) H 08/27/23 16:45 Delta Troponin T 3.21 ABS# (0-10) 08/27/23 16:45 Troponin T Hi Sens 6Hr 33.64 ng/L (0-10) H 08/27/23 20:21 Troponin T Hi Sens 6Hr Delta 6.64 ng/L (0-12) 08/27/23 20:21 C-Reactive Protein 3.0 mg/L (0.0-4.9) 09/09/23 05:49 NT-Pro-B Natriuret Pep 5912 pg/mL (0-450) H 09/09/23 05:49 Total Protein 6.0 g/dL (6.6-8.7) L 09/09/23 05:49 Albumin 3.6 g/dL (3.5-5.2) 09/09/23 05:49 Globulin 2.4 g/dL (1.3-4.6) 09/09/23 05:49 Triglycerides 127 mg/dL (0-150) 08/27/23 14:25 Cholesterol 203 mg/dL (0-200) H 08/27/23 14:25 LDL Cholesterol, Calc 89 mg/dL (50-129) 08/27/23 14:25 HDL Cholesterol 89 mg/dL (60-100) 08/27/23 14:25 LDL/HDL Ratio 1.00 RATIO (0.00-3.22) 08/27/23 14:25 Cholesterol/HDL Ratio 2.28 mg/dL (0.0-4.40) 08/27/23 14:25 Procalcitonin 0.07 ng/mL (0-0.5) 09/08/23 05:09 TSH 0.41 uIU/mL (0.27-4.20) 08/27/23 14:25 Urine Color Yellow (Yellow) 08/28/23 04:20 Urine Appearance Clear (CLEAR) 08/28/23 04:20 Urine pH 5 (5-7) 08/28/23 04:20 Ur Specific [place] 1.010 (1.005-1.030) 08/28/23 04:20 Urine Protein Neg (Negative) 08/28/23 04:20 Urine Glucose (UA) Norm (Normal) 08/28/23 04:20 Urine Ketones Negative (Negative) 08/28/23 04:20 Urine Blood Neg (Negative) 08/28/23 04:20 Urine Nitrate Negative (Negative) 08/28/23 04:20 Urine Bilirubin Neg (Negative) 08/28/23 04:20 Urine Urobilinogen Norm mg/dL (Negative) 08/28/23 04:20 Ur Leukocyte Esterase 2+ (Negative) H 08/28/23 04:20 Urine RBC 0-4 /hpf (0-2) H 08/28/23 04:20 Urine WBC 25-40 /hpf (0-5) H 08/28/23 04:20 Ur Squamous Epith Cells 0-4 /hpf (0-5) H 08/28/23 04:20 Amorphous Sediment Not Reportable 08/28/23 04:20 Urine Bacteria Trace /hpf (NONE) 08/28/23 04:20 Bronch Specimen Source Right lower lobe bal 09/04/23 07:42 Bronchial Fluid Color Red 09/04/23 07:42 Bronchial Fluid Appearance Cloudy (CLEAR) 09/04/23 07:42 Bronch Cells Counted 200 09/04/23 07:42 Bronchial Neutrophils 53.00 % (0.9-2.3) H 09/04/23 07:42 Bronchial Lymphocytes 8.00 % (10.71-12.91) L 09/04/23 07:42 Bronchial Eosinophils 0.00 % (0.13-0.25) L 09/04/23 07:42 Bronchial Macrophages 39.00 % (83.6-86.8) L 09/04/23 07:42 Bronchial Diff Comment Yes 09/04/23 07:42 Coronavirus 229E (PCR) Not detected (NOT DETECT) 08/27/23 14:45 Influenza Type A Ag negative (Negative) 08/27/23 14:45 Influenza Type B Ag negative (Negative) 08/27/23 14:45 SARS-CoV-2 (PCR) Not detected (NOT DETECT) 08/27/23 14:45 Vitals Last Vital Signs Temp 97.0 F L 09/09/23 11:08 Pulse 82 09/09/23 11:08 Resp 18 09/09/23 11:08 BP 126/76 09/09/23 11:08 Pulse Ox 95 09/09/23 11:08 O2 Del Method Nasal Cannula 09/09/23 11:08 O2 Flow Rate 2 09/09/23 08:42 FiO2 28 09/09/23 03:28 Discharge Plan Discharge Patient Disposition: Home Condition: Stable Prescriptions: New (DME) chest vest See Rx Instructions .Route .MEDSUPPLY Qty: 1 0RF Rx Instructions: As directed benzonatate 100 mg Capsule 100 mg PO TID PRN (Reason: Cough) 30 Days Qty: 90 0RF nystatin 100,000 unit/mL Suspension 100,000 unit PO QID 7 Days Qty: 28 0RF acetylcysteine 100 mg/mL (10 %) solution 2 ml inhalation Q6H PRN (Reason: shortness of breath) Qty: 30 0RF furosemide [Lasix] 40 mg tablet 40 mg PO QAM 30 Days Qty: 30 0RF potassium chloride [Klor-Con M20] 20 mEq tablet,ER particles/crystals 20 meq PO DAILY 30 Days Qty: 30 0RF Hyper-Ahmet 3.5 % solution for nebulization 4 ml inhalation Q8H PRN (Reason: secretions) Qty: 240 0RF aspirin 81 mg Tablet,Delayed Release (Dr/Ec) 81 mg PO DAILY 30 Days Qty: 30 0RF Eliquis 5 mg Tablet 5 mg PO Q12H 30 Days Qty: 60 0RF doxycycline monohydrate 100 mg Tablet 100 mg PO BID 5 Days Qty: 10 0RF diltiazem HCl [Cardizem LA] 120 mg tablet extended release 24 hr 120 mg PO DAILY 30 Days Qty: 30 0RF Continued ascorbic acid (vitamin C) 1,000 mg tablet 1,000 mg PO DAILY ondansetron HCl 4 mg tablet 4 mg PO Q6H PRN (Reason: nausea and vomiting) Qty: 30 0RF calcium carbonate [Calcium 600] 600 mg calcium (1,500 mg) tablet 600 mg PO DAILY albuterol sulfate 2.5 mg /3 mL (0.083 %) solution for nebulization 2.5 mg inhalation QID PRN (Reason: shortness of breath or wheezing) Qty: 90 0RF metoprolol tartrate 50 mg tablet 75 mg PO BID clonidine HCl 0.1 mg tablet 0.1 mg PO BID omeprazole 40 mg capsule,delayed release(DR/EC) 40 mg PO DAILY levothyroxine 125 mcg tablet 125 mcg PO QAM lovastatin 20 mg tablet 40 mg PO DAILY letrozole 2.5 mg tablet 2.5 mg PO DAILY prednisone 20 mg tablet 20 mg PO BID 5 Days Qty: 10 0RF Discontinued cefdinir 300 mg capsule 300 mg PO BID 10 Days Qty: 20 0RF lisinopril 40 mg tablet 40 mg PO BID chlordiazepoxide HCl 10 mg capsule 10 mg PO BEDTIME hydrochlorothiazide 25 mg tablet 25 mg PO QAM Discharge Orders: Discharge Order (Routine); Ordered 09/09/23 Ordered By: Dilan Rivero Other Ambulatory Orders: DME: BIPAP (Order) Location: None Selected Ordered By: Dilan Rivero DME: Nebulizer with Neb Kit (Order) Location: None Selected Ordered By: Dilan Rivero Referrals: Jo Ledezma MD [Primary Care Provider] - (We have notified your physician's clinic of the need for a follow-up appointment to be scheduled. If you have not heard from them within the next 2 business days, please call them directly. ) Galo Mendez MD [Physician] - 2 weeks José Peterson MD [Hospitalist] - 1 month Discharge Diet: As Directed Discharge Activity: Resume usual activity Patient Instructions: Opioid Safety Activity Restrictions/Additional Instructions: -Use BiPAP nightly us Use chest vest therapy twice daily Use hypertonic saline, and Mucomyst if you feel short of breath, congested as needed Please take Lasix therapy as prescribed See primary care provider next week for check kidney function and potassium Take steroids as prescribed Take antibiotics as prescribed See pulmonary in 1 week If you have worsening shortness of breath go to the emergency room for afib monitor for chest palpitations discharging on eliquis if you develop bloody or black stools go to emergency room Discharge Attestations Time Spent in Discharge Care*: greater than 30 min Quality Metrics Clinical Quality Measures [ No reported AMI, CVA or VTE this stay] Coding Level of Care Code Acute Code for Chg Fwd Diagnoses Acute hypoxic on chronic hypercapnic respiratory failure J96.01; J96.12 Pneumonia J18.9 Laterality: bilateral Lung location: unspecified part of lung Pneumonia type: due to unspecified organism Pleural effusion, right J90 Atrial fibrillation with RVR I48.91 Hypothyroidism, unspecified type E03.9 Hypothyroidism type: unspecified CKD (chronic kidney disease) N18.9 SOB (shortness of breath) R06.02 Breast cancer, left C50.912 Systolic CHF I50.20 Aortic stenosis I35.0 Moderate pulmonary hypertension I27.20 Mitral regurgitation I34.0 Complete atelectasis of right lung J98.11
== END 2023-09-09 15:21 | disposition home or self-care (01) | DRG 280 ==
LOC: ER 17:10 → MEDSURG 17:17
PROVIDERS: Internal Medicine Pulmonary Disease; Nurse Practitioner; Admitting Provider Family Medicine; Emergency Provider Family Medicine; PCP Family Medicine; Visit Provider Family Medicine
PROC: 0BJ08ZZ Inspection of Tracheobronchial Tree, Via Natural or Artificial Opening Endoscopic (ICD-10-PCS; CPT 31622; principal; 2023-09-04 07:00)
DX: I13.0 Hypertensive heart and chronic kidney disease with heart failure and stage 1 through stage 4 chronic kidney disease, or unspecified chronic kidney disease (principal); I50.31 Acute diastolic (congestive) heart failure; I21.4 Non-ST elevation (NSTEMI) myocardial infarction; J18.9 Pneumonia, unspecified organism; J96.02 Acute respiratory failure with hypercapnia; J96.01 Acute respiratory failure with hypoxia; J90 Pleural effusion, not elsewhere classified; E87.1 Hypo-osmolality and hyponatremia; T17.890A Other foreign object in other parts of respiratory tract causing asphyxiation, initial encounter; J98.11 Atelectasis; N17.9 Acute kidney failure, unspecified; N18.9 Chronic kidney disease, unspecified; I48.91 Unspecified atrial fibrillation; C50.912 Malignant neoplasm of unspecified site of left female breast; E78.5 Hyperlipidemia, unspecified; M81.0 Age-related osteoporosis without current pathological fracture; M10.9 Gout, unspecified; E78.2 Mixed hyperlipidemia; I08.0 Rheumatic disorders of both mitral and aortic valves; E89.0 Postprocedural hypothyroidism; M43.16 Spondylolisthesis, lumbar region; M51.17 Intervertebral disc disorders with radiculopathy, lumbosacral region; I27.20 Pulmonary hypertension, unspecified; E87.70 Fluid overload, unspecified; I73.9 Peripheral vascular disease, unspecified; Z17.0 Estrogen receptor positive status [ER+]; Z11.52 Encounter for screening for COVID-19; Z79.811 Long term (current) use of aromatase inhibitors; Z87.891 Personal history of nicotine dependence; Z92.21 Personal history of antineoplastic chemotherapy; Z92.3 Personal history of irradiation; Z85.3 Personal history of malignant neoplasm of breast
CPT/HCPCS: 31624; 31645; 32555; 36415; 36416; 36600; 51702; 71045; 71046; 71275; 74230; 76604; 80048; 80051; 80053; 80061; 80503; 81001; 82330; 82550; 82803; 82805; 82962; 83036; 83605; 83735; 83880; 84100; 84145; 84295; 84443; 84484; 85025; 85610; 86140; 87040; 87070; 87086; 87186; 87205; 87486; 87581; 87633; 87635; 87804; 88112; 88305; 89050; 92610; 92611; 93005; 93306; 94640; 94660; 94664; 94669; 94762; 96365; 96366; 96367; 97116; 97161; 97165; 99291; C9113; J0330; J1940; J2185; J2270; J2371; J2704; J2930; J3370; J7030; J7512; J7608; Q9967

== ENCOUNTER → 2023-09-25 17:01 | Outpatient (BNVA) | payer MEDICARE, OTHER, SELFPAY | PROVIDERS: PCP Family Medicine; Visit Provider Nurse Practitioner Family | DX: I34.0 Nonrheumatic mitral (valve) insufficiency (principal) | CPT/HCPCS: 80053; 83880; 85025 ==

== ENCOUNTER → 2023-10-31 14:49 | Outpatient (BNVA) | payer MEDICARE, OTHER, SELFPAY | PROVIDERS: PCP Family Medicine; Visit Provider Internal Medicine Pulmonary Disease | DX: J40 Bronchitis, not specified as acute or chronic (principal); R06.02 Shortness of breath; J90 Pleural effusion, not elsewhere classified | CPT/HCPCS: 71046; 80053; 85025 ==

== ENCOUNTER 2023-11-15 11:08 | Oncology outpatient (recurring) (ONCR) | payer MEDICARE, OTHER, SELFPAY ==
[2023-11-15 11:35] LABS: Basophils % 0.3 %; Eosinophils # 0.1 10^3/uL (0.0-0.8); Eosinophils % 0.8 %; Hematocrit 39.4 % (36-47); Lymphocytes # 1.4 10^3/uL (0.8-4.8); Lymphocytes % 18.1 %; Mean Corpuscular Hemoglobin 28.4 pg (27-33); Mean Corpuscular Volume 91.6 fl (85-98); Mean Platelet Volume 9.4 fL (7.4-10.4); Monocytes # 0.5 10^3/uL (0.2-0.9); Monocytes % 6.1 %; Neutrophils # 5.72 10^3/uL (1.8-7.7); Neutrophils % 74.4 %; Nucleated Red Blood Cells % 0 %; Platelet Count 299 10^3/cmm (157-399); Red Cell Distribution Width 14.9 % (12.1-15.1); White Blood Count 7.68 10^3/uL (3.29-11.43)
[2023-11-15 11:54] LABS: Alanine Aminotransferase 21 U/L (0-33); Albumin Level 3.9 g/dL (3.5-5.2); Alkaline Phosphatase 105 U/L (35-105); Anion Gap 16.4 (5-19); Aspartate Amino Transferase 16 U/L (0-32); Blood Urea Nitrogen 20 mg/dL (8-23); Calcium 8.1 mg/dL (8.5-10.5); Carbon Dioxide 25 mmol/L (22-29); Chloride 99 mmol/L (98-107); Globulin 2.7 g/dL (1.3-4.6); Glucose 127 mg/dL (65-115); Osmolality Calculated 286 mOsm/kg (285-295); Potassium 4.4 mmol/L (3.5-5.1); Sodium 136 mmol/L (136-145); Total Bilirubin 0.5 mg/dL (0.15-1.2); Total Protein 6.6 g/dL (6.6-8.7)
== END 2023-11-25 23:59 | disposition home or self-care (01) ==
PROVIDERS: PCP Family Medicine; Visit Provider Nurse Practitioner Family
DX: Z53.9 Procedure and treatment not carried out, unspecified reason (principal); C50.812 Malignant neoplasm of overlapping sites of left female breast; Z17.1 Estrogen receptor negative status [ER-]; M54.9 Dorsalgia, unspecified; M81.0 Age-related osteoporosis without current pathological fracture; Z79.899 Other long term (current) drug therapy
CPT/HCPCS: 36415; 80053; 85025; 99214

== ENCOUNTER 2023-11-29 06:00 | Outpatient (RCR) | payer MEDICARE, OTHER, SELFPAY | END 2023-12-24 23:59 | disposition home or self-care (01) | LOC: TST 06:00 | PROVIDERS: PCP Family Medicine; Visit Provider Internal Medicine Pulmonary Disease | DX: R13.10 Dysphagia, unspecified (principal); Z91.89 Other specified personal risk factors, not elsewhere classified | CPT/HCPCS: 92610 ==

== ENCOUNTER 2023-12-02 14:03 | Inpatient (IN) | payer MEDICARE, OTHER, SELFPAY ==
[2023-12-02] VITALS (34 sets, daily range): BP systolic 124–169; BP diastolic 43–93; PULSE 100–143; RESP 18–43; TEMP 36.7–36.8; O2SAT 78–97; BMI 32.8; BMI 35.5
--- NOTE | 2023-12-02 14:12 | XRR_ITS ---
PROCEDURE INFORMATION: Exam: XR Chest Exam date and time: 12/02/2023 2:35 PM Age: 83 years old Clinical indication: Shortness of breath; Prior surgery; Surgery date: 6+ months; Surgery type: Thyroid lumpectomy; Additional info: Dyspnea TECHNIQUE: Imaging protocol: Radiologic exam of the chest. Views: 1 view. COMPARISON: CR XR chest 2V* [id number] 10/31/2023 2:57 PM FINDINGS: Tubes, catheters and devices: There is an epidural neurostimulator in the thoracic spine. Lungs: Patchy infiltrate involves the right perihilar region. There is soft tissue prominence involving both kris. Pleural spaces: There is a moderate right-sided pleural effusion. Heart/Mediastinum: Unremarkable. No cardiomegaly. Diaphragm: There is chronic elevation of the right hemidiaphragm. Bones/joints: There is bony sclerosis involving 1 of the lower thoracic vertebral bodies. XR/XR chest 1V portable [id number] IMPRESSION: 1. Right perihilar infiltrate with pleural effusion 2. Soft tissue prominence of both kris suggesting the possibility of tumor 3. Bony sclerosis in the thoracic spine which has not changed over the past few months.
--- NOTE | 2023-12-02 14:15 | ECG_ITS ---
[facility] Test Date: 2023-12-02 Pat Name: Kelley Quezada Department: Room: Gender: Female Abalone Sheller: : 1940 Requested By: Anil Thompson Order Number: [id number] Navas MD: Mian Rose M.D. Measurements Intervals [place] Rate: 100 P: 0 CO: 0 QRS: 14 QRSD: 84 T: 55 QT: 310 QTc: 400 Interpretive Statements ATRIAL FIBRILLATION WITH RAPID VENTRICULAR RESPONSE Compared to ECG 08/27/2023 21:59:02 No significant changes Electronically Signed On 12-03-2023 13:17:19 CDT by Mian Rose M.D. [id number]
--- NOTE | 2023-12-02 14:44 | CTR_ITS ---
PROCEDURE INFORMATION: Exam: CT Chest Without Contrast; Diagnostic Exam date and time: 12/02/2023 4:32 PM Age: 83 years old Clinical indication: Shortness of breath; Additional info: Dyspnea TECHNIQUE: Imaging protocol: Diagnostic computed tomography of the chest without contrast. Radiation optimization: All CT scans at this facility use at least one of these dose optimization techniques: automated exposure control; mA and/or kV adjustment per patient size (includes targeted exams where dose is matched to clinical indication); or iterative reconstruction. COMPARISON: CT angio chest PE protcl [id number] 08/27/2023 6:01 PM RADIATION DOSE METRICS: Total DLP (mGy-cm): 500.63 FINDINGS: Tubes, catheters and devices: There is an epidural neurostimulator in the thoracic spine. Lungs: There is compressive atelectasis involving much of the right lung. I see no definite lung mass or infiltrate. Pleural spaces: There is a very large right-sided pleural effusion which occupies most of the right hemithorax. A small left pleural effusion is noted. Heart: See Coronary arteries finding. Coronary arteries: Coronary artery calcifications are noted. Moderate cardiomegaly is noted. Lymph nodes: Unremarkable. No enlarged lymph nodes. Vasculature: Unremarkable. No aortic aneurysm. Gallbladder and bile ducts: Multiple gallstones are noted in the gallbladder but the gallbladder does not appear inflamed and demonstrates normal wall thickness. Bones/joints: Bony sclerosis involves the T9 vertebral body. Soft tissues: Unremarkable. CT/CT chest con [id number] IMPRESSION: 1. Large right-sided pleural effusion of uncertain etiology 2. Stable cardiomegaly 3. Stable sclerotic lesion involving the thoracic spine 4. Cholelithiasis
[2023-12-02] MEDS: ipratropium-albuterol 3 mL Neb INHALATION ×2 (14:58→19:52)
[2023-12-02 15:16] LABS: Basophils % 0.4 %; Eosinophils % 0.3 %; Hematocrit 41.3 % (36-47); Lymphocytes # 1.2 10^3/uL (0.8-4.8); Lymphocytes % 14.9 %; Mean Corpuscular HGB Conc 28.8 g/dL (30-55); Mean Corpuscular Hemoglobin 27.6 pg (27-33); Mean Corpuscular Volume 95.8 fl (85-98); Mean Platelet Volume 9.5 fL (7.4-10.4); Monocytes # 0.5 10^3/uL (0.2-0.9); Monocytes % 5.9 %; Neutrophils # 6.05 10^3/uL (1.8-7.7); Neutrophils % 77.5 %; Nucleated Red Blood Cells % 0.5 %; Platelet Count 298 10^3/cmm (157-399); Red Blood Count 4.31 10^6/uL (3.85-5.65); Red Cell Distribution Width 15.5 % (12.1-15.1)
[2023-12-02 15:30] LABS: Alveolar-Arterial Oxygen Gradi 10.1 mmHg (5-10); Arterial Blood Gas Hematocrit 37.4 % (37-47); Base Excess ABG -3.5 mmol/L (-2.0-2.0); Blood Gas Allen Test Pos; Blood Gas Operator Identificat glc; Blood Gas Sample Site Radial, right; Blood Gas Sample Type Arterial; Carboxyhemoglobin 0.9 %THgb (0.4-20.1); HCO3 ABG 26.6 mmol/L (22-26); HGB O2 Sat 94.2 % (95-100); Ionized Calcium Level - ABG 1.2 mmol/L (1.1-1.4); Methemoglobin 0.5 % (0.4-1.5); Oxygen Device NC; Oxygen Saturation ABG 95.6; PO2 ABG 87.2 mmHg (80.0-100.0); PO2 FiO2 Ratio Arterial Blood 0; Potassium Level - ABG 4.6 mmol/L (3.5-5.0); Total Hemoglobin 12.2 g/dL (12-16)
[2023-12-02 15:37] LABS: INR 1.29 (0.8-1.2)
[2023-12-02 15:40] LABS: ABG PCO2 74.1 mmHg (35-45); ABG PH Result 7.16 (7.35-7.45)
[2023-12-02 15:42] LABS: SARS Covid-2 Antigen negative (Negative)
[2023-12-02 15:47] LABS: Troponin(5th) Baseline 35 ng/L (0-10)
[2023-12-02 15:57] LABS: NT Pro B Type Natriuretic Pept 12326 pg/mL (0-450); Procalcitonin 0.13 ng/mL (0-0.5)
[2023-12-02 16:08] LABS: Alanine Aminotransferase 43 U/L (0-33); Albumin Level 3.9 g/dL (3.5-5.2); Alkaline Phosphatase 153 U/L (35-105); Anion Gap 14.5 (5-19); Aspartate Amino Transferase 23 U/L (0-32); Blood Urea Nitrogen 45 mg/dL (8-23); Calcium 8.3 mg/dL (8.5-10.5); Carbon Dioxide 26 mmol/L (22-29); Chloride 105 mmol/L (98-107); Globulin 2.5 g/dL (1.3-4.6); Glucose 149 mg/dL (65-115); Osmolality Calculated 306 mOsm/kg (285-295); Potassium 4.5 mmol/L (3.5-5.1); Sodium 141 mmol/L (136-145); Total Bilirubin 0.2 mg/dL (0.15-1.2); Total Protein 6.4 g/dL (6.6-8.7)
[2023-12-02 16:09] LABS: Creatinine Clr Calc Pharmacy 28.2991
--- NOTE | 2023-12-02 16:13 | ECG_ITS ---
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 Measurements Intervals [place] Rate: 121 P: 0 MO: 0 QRS: 17 QRSD: 79 T: 62 QT: 285 QTc: 405 Interpretive Statements ATRIAL FIBRILLATION WITH RAPID VENTRICULAR RESPONSE MINIMAL ST DEPRESSION [0.025+ mV ST DEPRESSION] Compared to ECG 12/02/2023 14:15:23 ST (T wave) deviation now present Electronically Signed On 12-03-2023 13:21:59 CDT by Mian Rose M.D. [id number]
[2023-12-02 16:23] LABS: Lactic Sepsis W/Reflex 1.2 mmol/L (0.5-2.2)
--- NOTE | 2023-12-02 16:34 | W.ED.SOB ---
HPI - SOB/Dyspnea General: Chief Complaint: Shortness of Breath/Dyspnea Stated Complaint: SOB Time Seen by Provider: 12/02/23 14:07 History of Present Illness: HPI Narrative: 83-year-old female presents to the emergency department with complaints of increased shortness of breath. The patient states she was here in August 2023 for similar complaints of shortness of breath. She states she was discharged home and has followed up with pulmonology Dr. Montoya. The patient does have a history of diastolic heart failure, atrial fibrillation with rapid ventricular response, aortic stenosis, reoccurring right pleural effusion, breast cancer, pulmonary hypertension, chronic kidney disease, recurrent pneumonia and hypothyroidism. 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 Nu Hubbard [facility] Family History Sister Cancer Breast Other Family history non-contributory Suicide Denies family history of Diabetes CAD (coronary artery disease) Clotting disorder Dementia Hyperlipidemia Psychiatric illness Chronic kidney disease (CKD) Anesthesia complication Bleeding disorder Lung disease Hypertension Stroke Social History Smoking and tobacco/nicotine status: former use of tobacco/nicotine Quit status (tobacco/nicotine): has quit using Year quit tobacco: 1966 Former quit date comment: 0.25 ppd X 4 years Second hand smoke exposure: No Alcohol intake: never Substance/Drug Use: never Caregiver/support person: Yes Lives independently: Yes Household members: spouse Marital status: Current occupational status: retired Current gender identity: Female Special temi needs: No Agree to transfusion: Yes Physical Exam Narrative: EXAM NARRATIVE: Constitutional: Ill-appearing, frail, acute respiratory distress. Vital signs reviewed as documented. HENMT: Normocephalic, atraumatic. External ears normal appearance without drainage. Nose without drainage, normal appearance. Mucus membranes moist. Neck is supple, No jugular venous distension, trachea is midline, no appreciable carotid bruits. No lymphadenopathy. No meningeal signs. Flexion, extension and lateral rotation is without pain. Eyes: Pupils are equal, round, reactive to light and accommodation. No scleral icterus. Extra-ocular movement are intact. Thorax is symmetrical and with equal rise and fall with respirations. Resp: Lungs with significant rhonchi bilaterally, right greater than the left. Expiratory wheezes noted, increased respiratory effort, accessory muscle usage noted Cardio: Irregularly irregular rhythm consistent with atrial fibrillation with RVR.. Positive S1, S2. No appreciable murmurs, rubs or gallops. GI: Abdominal exam reveals normal bowel sounds to all quadrants. No organomegaly. No obvious palpable masses noted. No hepatomegally appreciated. Soft, non-tender to palpation. Extremity: Extremities are with bilateral lower extremity edema that is 1+. Both femoral and pedal pulses are 2+ and equal bilaterally. Moves all extremities well, sensation in all extremities. Neuro: Alert and oriented x4, person, place, time and situation. Cranial nerves II through XII are grossly intact, there is no focal neurological deficits that I can appreciate at present. Sensation intact to all extremities. 2-point discrimination intact. Light touch intact to all extremities. Motor strength in the upper and lower extremities are equal and bilateral 5/5. Psych: Cooperative, calm, normal thought process, appropriate judgment. Skin: No lesions, rashes. No gross abnormalities noted. Back: Symmetrical, no obvious deformity, No CVA tenderness Course Vital Signs: Vital signs: Vital Signs Temperature 98.2 F 12/03/23 00:00 Pulse Rate 116 H 12/03/23 00:00 Respiratory Rate 27 H 12/03/23 00:00 Blood Pressure 137/67 12/03/23 00:00 Pulse Oximetry 90 12/02/23 20:00 Oxygen Delivery Me thod Oxymask 12/02/23 20:00 Oxygen Flow Rate 4 12/02/23 19:56 MDM - SOB/Dyspnea Medical Decision Making Physical exam completed and documented I did obtain a CBC that was essentially normal, an arterial blood gas was obtained that demonstrated a pH of 7.16, pCO2 of 74 pO2 of 87 bicarb 26.6, -3 base excess, CMP was obtained and demonstrated a BUN of 45 and creatinine of 1.6 consistent with acute on chronic renal failure. Patient's BNP was elevated at 12,000 326 consistent with congestive heart failure. Chest x-ray and CT of the chest demonstrated large right pleural effusion. An ABG was obtained and demonstrated acute primary respiratory acidosis, with secondary metabolic alkalosis. Differential diagnosis-malignant pleural effusion, pneumonia, congestive heart failure, myocardial infarction, cardiac arrhythmia, Medical Records I reviewed the patient's medical records. Lab Data I reviewed the patient's lab results. 12/02/23 14:57 12/02/23 14:57 Labs/Radiology: Radiology Impressions Chest X-Ray 12/02/23 14:12 IMPRESSION: 1. Right perihilar infiltrate with pleural effusion 2. Soft tissue prominence of both kris suggesting the possibility of tumor 3. Bony sclerosis in the thoracic spine which has not changed over the past few months. Chest CT 12/02/23 14:44 IMPRESSION: 1. Large right-sided pleural effusion of uncertain etiology 2. Stable cardiomegaly 3. Stable sclerotic lesion involving the thoracic spine 4. Cholelithiasis Laboratory Results WBC 7.80 10^3/uL (3.29-11.43) 12/02/23 14:57 RBC 4.31 10^6/uL (3.85-5.65) 12/02/23 14:57 Hgb 11.90 g/dL (11.27-16.99) 12/02/23 14:57 Hct 41.3 % (36-47) 12/02/23 14:57 MCV 95.8 fl (85-98) 12/02/23 14:57 MCH 27.6 pg (27-33) 12/02/23 14:57 MCHC 28.8 g/dL (30-55) L 12/02/23 14:57 RDW 15.5 % (12.1-15.1) H 12/02/23 14:57 Plt Count 298 10^3/cmm (157-399) 12/02/23 14:57 MPV 9.5 fL (7.4-10.4) 12/02/23 14:57 Neut % (Auto) 77.5 % 12/02/23 14:57 Lymph % (Auto) 14.9 % 12/02/23 14:57 [place] % (Auto) 5.9 % 12/02/23 14:57 Eos % (Auto) 0.3 % 12/02/23 14:57 Baso % (Auto) 0.4 % 12/02/23 14:57 Neut # (Auto) 6.05 10^3/uL (1.8-7.7) 12/02/23 14:57 Lymph # (Auto) 1.2 10^3/uL (0.8-4.8) 12/02/23 14:57 [place] # (Auto) 0.5 10^3/uL (0.2-0.9) 12/02/23 14:57 Eos # (Auto) 0.0 10^3/uL (0.0-0.8) 12/02/23 14:57 Baso # (Auto) 0.0 10^3/uL (0.0-0.1) 12/02/23 14:57 Nucleated RBC % (auto) 0.5 % 12/02/23 14:57 Nucleated RBCs # 0.0 /100WBC 12/02/23 14:57 PT 16.60 SECONDS (12.1-14.9) H 12/02/23 14:57 INR 1.29 (0.8-1.2) H 12/02/23 14:57 Specimen Type Arterial 12/02/23 15:21 Sample Site Radial, right 12/02/23 15:21 ABG pH 7.16 (7.35-7.45) L* 12/02/23 15:21 ABG pCO2 74.1 mmHg (35-45) H* 12/02/23 15:21 ABG pO2 87.2 mmHg (80.0-100.0) 12/02/23 15:21 ABG PO2/FiO2 Ratio 0 12/02/23 15:21 ABG HCO3 26.6 mmol/L (22-26) H 12/02/23 15:21 ABG O2 Saturation 95.6 04/07/24 15:21 ABG Base Excess -3.5 mmol/L (-2.0-2.0) L 12/02/23 15:21 Mikhail Test Pos 12/02/23 15:21 A-a O2 Gradient 10.1 mmHg (5-10) H 12/02/23 15:21 Hematocrit 37.4 % (37-47) 12/02/23 15:21 Hgb O2 Saturation 94.2 % (95-100) L 12/02/23 15:21 Carboxyhemoglobin 0.9 %THgb (0.4-20.1) 12/02/23 15:21 Methemoglobin 0.5 % (0.4-1.5) 12/02/23 15:21 Total Hemoglobin 12.2 g/dL (12-16) 12/02/23 15:21 Sodium 143.0 mmol/L (131-143) 12/02/23 15:21 Potassium 4.6 mmol/L (3.5-5.0) 12/02/23 15:21 Glucose 142.0 mg/dL (70-115) H 12/02/23 15:21 Ionized Calcium 1.2 mmol/L (1.1-1.4) 12/02/23 15:21 O2 Delivery Device Nc 12/02/23 15:21 O2 Liters/Min 4.0 % 12/02/23 15:21 FiO2 36.0 % 12/02/23 15:21 Strap Buckler Machine ID glc 12/02/23 15:21 Sodium 141 mmol/L (136-145) 12/02/23 14:57 Potassium 4.5 mmol/L (3.5-5.1) 12/02/23 14:57 Chloride 105 mmol/L (98-107) 12/02/23 14:57 Carbon Dioxide 26 mmol/L (22-29) 12/02/23 14:57 Anion Gap 14.5 (5-19) 12/02/23 14:57 BUN 45 mg/dL (8-23) H 12/02/23 14:57 Creatinine 1.6 mg/dL (0.5-0.9) H 12/02/23 14:57 GFR Calculation Not Reportable 12/02/23 14:57 Glucose 149 mg/dL (65-115) H 12/02/23 14:57 Calculated Osmolality 306 mOsm/kg (285-295) H 12/02/23 14:57 Lactic Acid 1.2 mmol/L (0.5-2.2) 12/02/23 14:57 Calcium 8.3 mg/dL (8.5-10.5) L 12/02/23 14:57 Total Bilirubin 0.2 mg/dL (0.15-1.2) 12/02/23 14:57 AST 23 U/L (0-32) 12/02/23 14:57 ALT 43 U/L (0-33) H 12/02/23 14:57 Alkaline Phosphatase 153 U/L (35-105) H 12/02/23 14:57 Troponin T Baseline 35 ng/L (0-10) H 12/02/23 14:57 NT-Pro-B Natriuret Pep 07385 pg/mL (0-450) H 12/02/23 14:57 Total Protein 6.4 g/dL (6.6-8.7) L 12/02/23 14:57 Albumin 3.9 g/dL (3.5-5.2) 12/02/23 14:57 Globulin 2.5 g/dL (1.3-4.6) 12/02/23 14:57 Procalcitonin 0.13 ng/mL (0-0.5) 12/02/23 14:57 SARS-CoV-2 Ag (Rapid) negative (Negative) 12/02/23 15:11 All radiology interpretation(s) finalized by discharge ABG Data ABG Interpretation 1: I personally reviewed and interpreted this ABG as follows: Interpretation: Acute primary respiratory acidosis with secondary metabolic alkalosis Critical Care Time Critical Care Time: Critical Care Time: Yes Total Critical Care Time: 45 Attestation: The patients was emergently evaluated as this patient's presentation and case had a high probability of a clinically significant, sudden, or life threatening deterioration of this patient's initial critical presentation or condition which required my full and direct attention, intervention and personal management. Discharge Plan Discharge Patient Disposition: Admitted As Inpatient Admit Provider: Rolan Kong Clinical Impression: Acute dyspnea, Acute respiratory failure with hypoxemia Acute exacerbation of CHF (congestive heart failure) Qualifiers: Heart failure type: diastolic Qualified Code(s): I50.33 - Acute on chronic diastolic (congestive) heart failure Acute on chronic kidney failure Qualifiers: Acute renal failure type: unspecified Chronic kidney disease stage: unspecified stage Qualified Code(s): N17.9 - Acute kidney failure, unspecified Condition: Stable Coding Level of Care Code ED Tip Scourer for Roland Arnett
[2023-12-02 17:28] LABS: Troponin 5 2HR 33.54 ng/L (0-10)
[2023-12-02 17:30] LABS: Troponin 5 2HR Delta -1.46 ABS# (0-10)
[2023-12-02] MEDS: FUROsemide 10 mg/mL SDV 4mL 40 MG IVP (17:33)
--- NOTE | 2023-12-02 18:17 | P.HP_ITS ---
Providers/Chief Complaint 2 Admitting Physician: Rolan Kong DO Primary Care Provider: Jo Ledezma MD Chief Complaint: SOB History of Present Illness Kelley Quezada is a 83 year old female lung disease and prolonged hospitalization August 27, 20192023. There she was diagnosed with pneumonia complete right-sided consolidation on chest x-rays she was diagnosed with atrial fibrillation. Bronchoscopy on 09/04/2023 showed multiple mucous secretions and tracheobronchial malacia determined by bronchoscopy. Reportedly she has done well since then. However she has developed more shortness of breath over the last few days. In the emergency room she is found to have a pH of 7.1. She was increased to 4 L and she appears improved. It was felt she needed to be admitted for acute on chronic respiratory failure On my assessment based on clinical exam and BN P she has clinically significant CHF. While I realize her echocardiogram showed a normal EF previously the patient is in A-fib with RVR and she is clearly unable to tolerate this heart rate. I advised admission to [facility] for CHF treatment Review of Systems 2 Const: Denies: fever(s) or chills Eyes: Denies: change in vision ENMT: Denies: throat pain or nasal congestion Card: Denies: chest pain or palpitations Resp: Reports: dyspnea; Denies: productive cough GI: Denies: abdominal pain, nausea, vomiting or change in stool character : Denies: dysuria Musc: Denies: back pain or extremity pain Skin/Breast: Denies: rash or lesions Neuro: Denies: headache(s) or dizziness Psych: Denies: anxiety or depression Shiv/Lymph: Denies: easy bruising or easy bleeding Medications/Allergies Home Medications Medication Instructions Recorded Confirmed Last Taken Type calcium carbonate 600 mg calcium 600 mg PO DAILY 08/09/22 12/02/23 12/02/23 History (1,500 mg) tablet (Calcium) ondansetron HCl 4 mg tablet 4 mg PO Q6H PRN nausea and 08/24/23 12/02/23 Unknown Rx vomiting #30 tabs clonidine HCl 0.1 mg tablet 0.1 mg PO BID 08/27/23 12/02/23 12/02/23 History levothyroxine 125 mcg tablet 125 mcg PO QAM 08/27/23 12/02/23 12/02/23 History metoprolol tartrate 50 mg tablet 75 mg PO BID 08/27/23 12/02/23 12/02/23 History omeprazole 40 mg capsule,delayed 40 mg PO DAILY 08/27/23 12/02/23 12/02/23 History release portable oxygen at 2L via NC #1 ea 09/20/23 12/02/23 Unknown Rx chest vest #1 ea 09/21/23 12/02/23 Unknown Rx apixaban 5 mg tablet (Eliquis) 5 mg PO Q12H 30 days #60 tabs 10/09/23 12/02/23 12/02/23 Rx lovastatin 20 mg tablet 40 mg (2 x 20 mg) PO DAILY #60 tabs 10/30/23 12/02/23 12/02/23 Rx letrozole 2.5 mg tablet 2.5 mg PO DAILY #30 tabs 11/22/23 12/02/23 12/02/23 Rx Allergies Allergy/AdvReac Type Severity Reaction Status Date / Time adhesive Allergy Intermediate ALGY-Bliste Verified 12/02/23 15:32 r clarithromycin [From Biaxin] Allergy Intermediate thrush Verified 12/02/23 15:32 Penicillins Allergy Unknown Unknown Verified 12/02/23 15:32 PFSH Acute 2 PFSH: Medical History Osteoporosis Gout History of right shoulder fracture Breast cancer, left 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 Nu Hubbard [facility] Family History Sister Cancer Breast Other Family history non-contributory Suicide Denies family history of Diabetes CAD (coronary artery disease) Clotting disorder Dementia Hyperlipidemia Psychiatric illness Chronic kidney disease (CKD) Anesthesia complication Bleeding disorder Lung disease Hypertension Stroke Social History Smoking and tobacco/nicotine status: former use of tobacco/nicotine Quit status (tobacco/nicotine): has quit using Year quit tobacco: 1967 Former quit date comment: 0.25 ppd X 4 years Second hand smoke exposure: No Alcohol intake: never Substance/Drug Use: never Caregiver/support person: Yes Lives independently: Yes Household members: spouse Marital status: Current occupational status: retired Current gender identity: Female Special temi needs: No Agree to transfusion: Yes Vitals/I&O/Wt Last Vital Signs Temp 98.2 F 12/02/23 14:11 Pulse 104 H 12/02/23 17:28 Resp 18 12/02/23 17:28 BP 149/81 12/02/23 16:03 Pulse Ox 92 12/02/23 17:28 O2 Del Method Nasal Cannula 12/02/23 17:28 O2 Flow Rate 4 12/02/23 17:28 Weight last 48 hrs Weight 90.974 kg Weight 83.915 kg Physical Exam 2 Narrative: Elderly female in moderate distress due to dyspnea. States that she hurts all over. Alert oriented moderate distress appears over hydrated and well-nourished Neuro: Alert and oriented to to PP TS, nonfocal exam HEENT head is normocephalic H attic pupils equal round reactive to light and commendation extraocular muscles are intact there is no scleral icterus mucous membranes are moist and pink without lesions or exudates neck is supple mild JVD noted Chest. It does rise symmetrically with inspiration with increased respiratory rate Heart: Irregularly irregular tachycardic. Unable to auscultate well due to respiratory Lungs diminished breath sounds bilateral bases right greater than left crackles auscultated as well. Abdomen protuberant soft nontender nondistended positive bowel sounds no hepatosplenomegaly Extremities nonpitting edema. Toes are cool to touch and slightly mottled at the tips Psych: Mood and affect are appropriate for condition Back: Severe kyphosis with known compression fracture, no CVA tenderness Skin: Pale warm and dry Urinary Catheter Management: Vázquez: Cath Placed During This Visit: yes Urinary Catheter Date of Insertion: 12/02/23 Urinary Catheter Time of Insertion: 17:28 Data 12/02/23 14:57 12/02/23 14:57 Micro: Microbiology 12/02/23 14:57 Blood Culture - Preliminary Blood SPECIMEN COLLECTED 12/02/23 14:52 Blood Culture - Preliminary Blood SPECIMEN COLLECTED A&P Assessment and plan (1) Acute exacerbation of CHF (congestive heart failure): Patient's congestive heart failure is due to valvular heart disease as well as A-fib with RVR. Patient does not have the reserve to handle the tachycardia. It is noted that the patient was treated with diuresis the during that hospitalization but not discharged on said diuresis Qualifiers: Heart failure type: diastolic Qualified Code(s): I50.33 - Acute on chronic diastolic (congestive) heart failure (2) Acute respiratory failure with hypoxemia: There is also component of CO2 retention. (3) Acute on chronic kidney failure: Worsening chronic kidney disease with a creatinine now at 1.6. I suspect that creatinine will improve with the addition of Lasix providing blood flow to the kidney Qualifiers: Acute renal failure type: unspecified Chronic kidney disease stage: u nspecified stage Qualified Code(s): N17.9 - Acute kidney failure, unspecified; N18.9 - Chronic kidney disease, unspecified (4) Chronic respiratory failure: Patient wears 3 L at home is currently on 4 L Qualifiers: Respiratory failure complication: unspecified whether with hypoxia or hypercapnia Qualified Code(s): J96.10 - Chronic respiratory failure, unspecified whether with hypoxia or hypercapnia (5) Mitral regurgitation: Qualifiers: Cardiac valve disease etiology: nonrheumatic Qualified Code(s): I34.0 - Nonrheumatic mitral (valve) insufficiency (6) Moderate pulmonary hypertension: (7) Aortic stenosis: Qualifiers: Cardiac valve disease etiology: nonrheumatic Qualified Code(s): I35.0 - Nonrheumatic aortic (valve) stenosis (8) Atrial fibrillation with rapid ventricular response: Plan Place patient and CSU Stop beta-blockade in acute CHF Start Cardizem drip Lasix 40 mg IV every 12 hours monitor potassium and magnesium. Hold clonidine for now. Decrease apixaban dosing : Atrial fibrillation, nonvalvular (to prevent stroke and systemic embolism):?Oral:?5 mg twice daily?unless?patient has any 2 of the following: Age >=80 years, body weight <=60 kg, or serum creatinine >=1.5 mg/dL (133 micromole/L), then reduce dose to 2.5 mg twice daily. Noted TSH is low. Decrease Synthroid dosing to 112 mcg This will help heart rate as well as CHF. Attestations 2 Medical Necessity Statement*: Patient with acute on chronic CHF acute on chronic respiratory failure and acute on chronic renal disease patient requires greater than 2 midnight stay for the treatment and correction of these abnormalities. She is at high risk for deterioration and complications due to age and comorbidities Coding Level of Care Code Acute Code for Chg Fwd Diagnoses Acute on chronic diastolic congestive heart failure I50.33 Heart failure type: diastolic Acute respiratory failure with hypoxemia J96.01 Acute renal failure superimposed on chronic kidney disease, unspecified acute renal failure type, unspecified CKD stage N17.9; N18.9 Acute renal failure type: unspecified Chronic kidney disease stage: unspecified stage Chronic respiratory failure, unspecified whether with hypoxia or hypercapnia J96.10 Respiratory failure complication: unspecified whether with hypoxia or hypercapnia Nonrheumatic mitral valve regurgitation I34.0 Cardiac valve disease etiology: nonrheumatic Moderate pulmonary hypertension I27.20 Nonrheumatic aortic valve stenosis I35.0 Cardiac valve disease etiology: nonrheumatic Atrial fibrillation with rapid ventricular response I48.91
[2023-12-02] MEDS: apixaban 5 mg Tablet 2.5 MG PO (19:17)
[2023-12-02] MEDS: dilTIAZem 5 mg/mL SDV 5 mL 10 MG IVP (19:18)
[2023-12-02] MEDS: dilTIAZem 100 MG in sodium chloride 0.9% (add-van) 100 ML 10 MG IV (19:19)
[2023-12-02] MEDS: sodium chloride 3.5% neb 4 mL Neb INHALATION (19:53)
[2023-12-02] MEDS: acetylcysteine 200 mg/mL SDV 4 mL 100 MG INHALATION (19:53)
[2023-12-02 21:33] LABS: Add Urine Microscopic? YES; Amorphous Sediment Urine TRACE /hpf; Bacteria Urine TRACE /hpf; Bilirubin Urine Neg (Negative); Blood Urine Trace (Negative); Glucose Urine UA Norm (Normal); Hyaline Casts Urine 0-4 /lpf; Ketones Urine Negative (Negative); Leukocyte Esterase Urine Negative (Negative); Mucus Urine TRACE /hpf; Nitrate Urine Negative (Negative); Protein Urine Neg (Negative); Specific Gravity, Urine 1.005 (1.005-1.030); Squamous Epithelial Cell Urine 0-4 /hpf (0-5); Urine Appearance Clear (CLEAR); Urine Color Colorless (Yellow); Urobilinogen Urine Neg (Negative); WBC Urine 0-4 /hpf (0-5); pH Urine 5 (5-7)
[2023-12-02 21:50] LABS: Troponin 5 6HR 38.44 ng/L (0-10); Troponin 5 6HR Delta 3.44 ng/L (0-12)
[2023-12-02] MEDS: metoprolol tartrate 25 mg Tablet PO (23:46)
[2023-12-02] MEDS: morphine 4 mg/mL SDV 1 mL 2 MG IVP (23:48)
[2023-12-03] VITALS (52 sets, daily range): BP systolic 90–156; BP diastolic 43–88; PULSE 76–134; RESP 10–34; TEMP 36.7–37.1; O2SAT 86–100
--- NOTE | 2023-12-03 00:11 | US_ITS ---
WS: [id number] ULTRASOUND-GUIDED THORACENTESIS CLINICAL INFORMATION: pleural effusion PROCEDURE: Informed consent: The risks, benefits, and alternatives of the procedure were discussed with the tito ent. Verbal and written consent was obtained. Timeout: A timeout was performed to confirm the correct patient, procedure, and site. Site: RIGHT chest Preparation: A suitable skin site was identified. The patient was prepped and draped in usual sterile fashion. Lidocaine 1% was used for local anesthesia. Catheter: 4 Armenian One-Step catheter. Fluid Volume: 1000 ml Color: Clear yellow Discarded safely. Sent to the laboratory for analysis. Complications: No pneumothorax on the post thoracentesis portable chest. IMPRESSION: Uncomplicated ultrasound-guided RIGHT thoracentesis.
[2023-12-03] MEDS: dilTIAZem 100 MG in sodium chloride 0.9% (add-van) 100 ML 15 MG IV (01:12)
[2023-12-03] MEDS: ipratropium-albuterol 3 mL Neb INHALATION ×4 (01:35→19:27)
[2023-12-03] MEDS: acetylcysteine 200 mg/mL SDV 4 mL 100 MG INHALATION ×2 (01:36→07:55)
--- NOTE | 2023-12-03 02:00 | PC.RESP ---
ekg @ 2013 not done in er
[2023-12-03 04:02] LABS: Arterial Blood Gas Hematocrit 35.4 % (37-47); Base Excess ABG -0.4 mmol/L (-2.0-2.0); Blood Gas Allen Test Pos; Blood Gas Sample Site Brachial, right; Blood Gas Sample Type Arterial; Blood Gas Tidal Volume 0.42; HCO3 ABG 29.2 mmol/L (22-26); Oxygen Device BIPAP; PO2 ABG 85.6 mmHg (80.0-100.0); PO2 FiO2 Ratio Arterial Blood 0
[2023-12-03 04:04] LABS: ABG PCO2 75.2 mmHg (35-45)
[2023-12-03] MEDS: FUROsemide 10 mg/mL SDV 4mL 40 MG IVP ×2 (05:10→17:26)
[2023-12-03 05:43] LABS: Basophils % 0.2 %; Eosinophils % 0.2 %; Hematocrit 39.4 % (36-47); Lymphocytes # 1.1 10^3/uL (0.8-4.8); Lymphocytes % 12.8 %; Mean Corpuscular HGB Conc 28.9 g/dL (30-55); Mean Corpuscular Hemoglobin 28.1 pg (27-33); Mean Corpuscular Volume 97.3 fl (85-98); Mean Platelet Volume 9.7 fL (7.4-10.4); Monocytes # 0.7 10^3/uL (0.2-0.9); Monocytes % 8.9 %; Neutrophils # 6.37 10^3/uL (1.8-7.7); Neutrophils % 77.1 %; Nucleated Red Blood Cells % 0.2 %; Platelet Count 257 10^3/cmm (157-399); Red Blood Count 4.05 10^6/uL (3.85-5.65); Red Cell Distribution Width 15.6 % (12.1-15.1); White Blood Count 8.28 10^3/uL (3.29-11.43)
[2023-12-03 06:01] LABS: Alanine Aminotransferase 33 U/L (0-33); Albumin Level 3.8 g/dL (3.5-5.2); Alkaline Phosphatase 144 U/L (35-105); Aspartate Amino Transferase 18 U/L (0-32); Blood Urea Nitrogen 42 mg/dL (8-23); Calcium 8.2 mg/dL (8.5-10.5); Carbon Dioxide 30 mmol/L (22-29); Chloride 109 mmol/L (98-107); Creatinine Clr Calc Pharmacy 29.5283; Globulin 1.8 g/dL (1.3-4.6); Glucose 113 mg/dL (65-115); Osmolality Calculated 315 mOsm/kg (285-295); Phosphorus 4.9 mg/dL (2.5-4.5); Sodium 147 mmol/L (136-145); Total Bilirubin 0.4 mg/dL (0.15-1.2); Total Protein 5.6 g/dL (6.6-8.7)
[2023-12-03 06:02] LABS: Anion Gap 11.7 (5-19); Blood Urea Nitrogen 41 mg/dL (8-23); Calcium 8.3 mg/dL (8.5-10.5); Carbon Dioxide 31 mmol/L (22-29); Chloride 109 mmol/L (98-107); Creatinine Clr Calc Pharmacy 29.5283; Glucose 114 mg/dL (65-115); Osmolality Calculated 315 mOsm/kg (285-295); Potassium 4.7 mmol/L (3.5-5.1); Sodium 147 mmol/L (136-145)
[2023-12-03 06:10] LABS: 25 Hydroxy Vitamin D 44 ng/mL (30-100); NT Pro B Type Natriuretic Pept 15262 pg/mL (0-450)
[2023-12-03] MEDS: sodium chloride 3.5% neb 4 mL Neb INHALATION (07:55)
--- NOTE | 2023-12-03 09:18 | PC.NURSE ---
Called report to VIBHA Serrano in ICU.
--- NOTE | 2023-12-03 09:20 | PC.NURSE ---
Patient not awake enough to take PO medications. ICU nurse that will be taking over is aware.
--- NOTE | 2023-12-03 09:55 | XRR_ITS ---
PROCEDURE INFORMATION: Exam: XR Chest Exam date and time: 12/03/2023 9:01 AM Age: 83 years old Clinical indication: Shortness of breath; Additional info: Spb TECHNIQUE: Imaging protocol: Radiologic exam of the chest. Views: 1 view. COMPARISON: 1. CT chest wo con [id number] 12/02/2023 4:32 PM 2. CR (CHEST, ) 12/02/2023 2:35 PM FINDINGS: Tubes, catheters and devices: Neurostimulator lead is again seen. Lungs: Unremarkable. No consolidation. Pleural spaces: Moderate to large right-sided pleural effusion is seen which may be slightly decreased when compared to the prior chest x-ray. Heart/Mediastinum: Right heart border is obscured. Bones/joints: Unremarkable. XR/XR chest 1V portable [id number] IMPRESSION: Moderate to large right-sided pleural effusion is seen which may be slightly decreased when compared to the prior chest x-ray. No pneumothorax. No abnormalities in the visualized lung goldman
--- NOTE | 2023-12-03 09:55 | ECG_ITS ---
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 Measurements Intervals [place] Rate: 91 P: 0 GA: 0 QRS: 37 QRSD: 85 T: 57 QT: 344 QTc: 424 Interpretive Statements ATRIAL FIBRILLATION Compared to ECG 12/02/2023 16:40:27 ST (T wave) deviation no longer present Electronically Signed On 12-03-2023 13:12:28 CDT by Mian Rose M.D. [id number]
[2023-12-03] MEDS: methylPREDNISolone sod succ 125 mg/2 mL INJ IVP (10:23)
[2023-12-03] MEDS: meropenem 1,000 MG in sodium chloride 0.9% (plus) 50 ML 100 MG IV ×2 (10:23→23:23)
[2023-12-03 10:36] LABS: C Reactive Protein 8.1 mg/L (0.0-4.9)
--- NOTE | 2023-12-03 11:07 | ECG_ITS ---
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 Measurements Intervals [place] Rate: 86 P: 0 PA: 0 QRS: 6 QRSD: 81 T: 37 QT: 357 QTc: 428 Interpretive Statements ATRIAL FIBRILLATION Compared to ECG 12/03/2023 09:55:36 No significant changes Electronically Signed On 12-03-2023 13:19:33 CDT by Mian Rose M.D. [id number]
[2023-12-03 12:31] LABS: Troponin(5th) Baseline 44 ng/L (0-10)
--- NOTE | 2023-12-03 12:53 | P.PN_ITS ---
Subjective 2 Subjective: Patient was seen this morning, she is alert to person, place, not to time, currently on BiPAP, in mild to moderate respiratory distress nasal flaring intercostal retractions, tachypnea, on 50% BiPAP, diffuse wheezing in all lung goldman, currently in cardiac stepdown unit, I did detailed discussion with patient about her worsening respiratory failure, she remains a full code, will move her to the intensive care unit for monitoring, I have started her on Zosyn for possible aspiration pneumonia as she has a history of silent aspiration, she is receiving diuresis, also started on steroid therapy, for atrial fibrillation rate she remains on Cardizem drip Reexamined in the afternoon she is resting more comfortably, heart rates in the 90s, off Cardizem drip, 45% FiO2 remains on BiPAP, remains quite drowsy, but can follow commands falls back asleep, Vitals/I&O/Wt Last Vital Signs Temp 98.0 F 12/03/23 04:00 Pulse 103 H 12/03/23 11:15 Resp 23 H 12/03/23 08:00 BP 115/70 12/03/23 08:00 Pulse Ox 94 12/03/23 11:15 O2 Del Method BiPAP 12/03/23 08:00 O2 Flow Rate 4 12/02/23 19:56 FiO2 45 12/03/23 11:15 12/02/23 12/03/23 12/03/23 22:59 06:59 14:59 Intake Total 38.750 / 38.750 91.958 / 130.708 Output Total 2150 / 2150 300 / 2450 Balance -2111.250 / -2111.250 -208.042 / -2319.292 Weight last 48 hrs Weight 88.904 kg Weight 90.974 kg Weight 83.915 kg Physical Exam 2 Const: GENERAL APPEARANCE: ill appearing and frail appearing O RIENTATION/CONSCIOUSNESS: Yes awake, Yes oriented to person and Yes oriented to place; not oriented to time Eye: COMMON NORMALS: Equal, round and reactive pupils present and EOMs intact bilaterally PUPIL: Yes Equal, round and reactive pupils present Lymph: LYMPHATIC: no lymphadenopathy noted Resp: OTHER: Intercostal suprasternal retractions, nasal flaring, tachypnea, tachycardia, diffuse wheezing in all lung goldman, mild to moderate respiratory distress Cardio: COMMON NORMALS: regular rate, regular rhythm, S1 normal heart sound present and S2 normal heart sound present RATE: regular rate RHYTHM: r egular rhythm HEART SOUNDS: S1 normal heart sound present and S2 normal heart sound present GI: COMMON NORMALS: Normal to inspection, nondistended, normoactive bowel sounds present and non-tender Extremity: NARRATIVE EXTREMITY EXAM: 1+ edema Neuro: SENSORIUM/ORIENTATION: Yes oriented to person, Yes oriented to place and No oriented to time Urinary Catheter Management: Vázquez: Cath Placed During This Visit: yes Reason for Continuing Indwelling Catheter: Accurate Measurement of Urinary Output in Critically Ill Patients Urinary Catheter Date of Insertion: 12/02/23 Urinary Catheter Time of Insertion: 17:28 Data 12/03/23 05:03 12/03/23 05:03 Micro: Microbiology 12/02/23 14:57 Blood Culture - Preliminary Blood SPECIMEN COLLECTED 12/02/23 14:52 Blood Culture - Preliminary Blood SPECIMEN COLLECTED A&P Assessment and plan (1) Acute exacerbation of CHF (congestive heart failure): Qualifiers: Heart failure type: diastolic Qualified Code(s): I50.33 - Acute on chronic diastolic (congestive) heart failure (2) Acute respiratory failure with hypoxemia: (3) Acute on chronic kidney failure: Qualifiers: Acute renal failure type: unspecified Chronic kidney disease stage: u nspecified stage Qualified Code(s): N17.9 - Acute kidney failure, unspecified; N18.9 - Chronic kidney disease, unspecified (4) Chronic respiratory failure: Qualifiers: Respiratory failure complication: unspecified whether with hypoxia or hypercapnia Qualified Code(s): J96.10 - Chronic respiratory failure, unspecified whether with hypoxia or hypercapnia (5) Mitral regurgitation: Qualifiers: Cardiac valve disease etiology: nonrheumatic Qualified Code(s): I34.0 - Nonrheumatic mitral (valve) insufficiency (6) Moderate pulmonary hypertension: (7) Aortic stenosis: Qualifiers: Cardiac valve disease etiology: nonrheumatic Qualified Code(s): I35.0 - Nonrheumatic aortic (valve) stenosis (8) Atrial fibrillation with rapid ventricular response: (9) Aspiration pneumonia: (10) Acute on chronic respiratory failure with hypoxia and hypercapnia: (11) Pulmonary hypertension: Plan Acute hypoxic hypercarbic respiratory failure ? Likely secondary to CHF exacerbation, aortic stenosis, A-fib with RVR ? Diastolic CHF exacerbation, BNP 26968 ? With concerns for underlying silent aspiration, aspiration pneumonia, ? During last hospitalization, patient had thick mucus secretions around left bronchial tree, with complete opacification of left lung, she also has right hemidiaphragmatic elevation, -Initially in mild to moderate respiratory distress and his cardiac stepdown unit, this afternoon much more comfortable in intensive care unit ? Plan, ? Monitor Intensive Care Unit ?continue BiPAP ? Solu-Medrol 40 mg IV every 8 hours -Lasix 40 mg IV twice daily ? Patient has severe aortic stenosis low gradient likely also playing a role ? A-fib with RVR also playing a role ? Start meropenem ? Monitor respiratory status closely, ? CODE STATUS full code Lovenox for DVT prophylaxis TANJA on CKD, creatinine 1.6, monitor as on diuresis Aortic stenosis, severe low gradient, likely also playing A-fib with RVR ? Cardizem 60 every 6 hours ? 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 Lovenox for DVT prophylaxis Status is stable, prognosis is guarded Patient was seen this morning, she is alert to person, place, not to time, currently on BiPAP, in mild to moderate respiratory distress nasal flaring intercostal retractions, tachypnea, on 50% BiPAP, diffuse wheezing in all lung goldman, currently in cardiac stepdown unit, I did detailed discussion with patient about her worsening respiratory failure, she remains a full code, will move her to the intensive care unit for monitoring, I have started her on Zosyn for possible aspiration pneumonia as she has a history of silent aspiration, she is receiving diuresis, also started on steroid therapy, for atrial fibrillation rate she remains on Cardizem drip Reexamined in the afternoon she is resting more comfortably, heart rates in the 90s, off Cardizem drip, 45% FiO2 remains on BiPAP, remains quite drowsy, but can follow commands falls back asleep, Attestations 2 Medical Necessity Statement*: Patient requires hospitalization for acute hypoxic hypercarbic respiratory failure, TANJA, aortic stenosis, A-fib, moderate pulm hypertension, right pleural effusion, aspiration pneumonia, CHF exacerbation, Coding Level of Care Code Critical Care >/= 30 minutes Critical care time (in minutes): 45 The high probability of a clinically significant, sudden or life threatening deterioration, as referenced in this documentation, required my full and direct attention, intervention and personal management. The critical care time shown is in addition to time spent performing any reported separately billable procedures and includes the following: [x] Data and vital sign review and interpretation [x ] Patient assessment, examination and intervention [x] Medication orders and management [x] Patient/Family updates as able [x] Care Coordination and Documentation. Diagnoses Acute on chronic diastolic congestive heart failure I50.33 Heart failure type: diastolic Acute respiratory failure with hypoxemia J96.01 Acute renal failure superimposed on chronic kidney disease, unspecified acute renal failure type, unspecified CKD stage N17.9; N18.9 Acute renal failure type: unspecified Chronic kidney disease stage: unspecified stage Chronic respiratory failure, unspecified whether with hypoxia or hypercapnia J96.10 Respiratory failure complication: unspecified whether with hypoxia or hypercapnia Nonrheumatic mitral valve regurgitation I34.0 Cardiac valve disease etiology: nonrheumatic Moderate pulmonary hypertension I27.20 Nonrheumatic aortic valve stenosis I35.0 Cardiac valve disease etiology: nonrheumatic Atrial fibrillation with rapid ventricular response I48.91 Aspiration pneumonia J69.0 Acute on chronic respiratory failure with hypoxia and hypercapnia J96.21; J96.22 Pulmonary hypertension I27.20
[2023-12-03 13:23] LABS: Troponin 5 2HR 50.44 ng/L (0-10); Troponin 5 2HR Delta 6.44 ABS# (0-10)
[2023-12-03] MEDS: dilTIAZem 100 MG in sodium chloride 0.9% (add-van) 100 ML IV (13:38)
--- NOTE | 2023-12-03 15:15 | XR_ITS ---
WS: [id number] CHEST XRAY TECHNIQUE: Portable chest. CLINICAL INFORMATION: post thora COMPARISON: 12/02/2023 FINDINGS: Heart: Cardiomegaly. Lungs: Improved RIGHT pleural effusion post thoracentesis. No pneumothorax. Persistent atelectasis an d volume loss RIGHT lower lobe. Trace LEFT pleural fluid. Surgical clips LEFT axilla. Calcified granu khurram RIGHT upper lobe. Bones: Osteopenia. Spinal stimulator. IMPRESSION: Status post RIGHT thoracentesis with improved pleural effusion. Persistent atelectasis RIGHT lower lo be. No pneumothorax.
[2023-12-03 15:45] LABS: Apprearance, Body Fluid CLOUDY; Color, Body Fluid YELLOW
--- NOTE | 2023-12-03 15:45 | ECG_ITS ---
[facility] Test Date: 2023-12-03 Pat Name: Kelley Quezada Department: Room: ICU06 Gender: Female Crtt: : 1940 Requested By: Dilan Rivero Order Number: [id number] Navas MD: Mian Rose M.D. Measurements Intervals Pearson Rate: 120 P: 0 AK: 0 QRS: 1 QRSD: 82 T: 28 QT: 300 QTc: 425 Interpretive Statements ATRIAL FIBRILLATION WITH RAPID VENTRICULAR RESPONSE NONSPECIFIC ST & T-WAVE ABNORMALITY ABNORMAL RHYTHM ECG Compared to ECG 12/03/2023 11:07:00 T-wave abnormality now present Electronically Signed On 12-03-2023 21:01:06 CDT by Mian Rose M.D. [id number]
[2023-12-03 15:46] LABS: Body Fluid Polynuclear #Cells 0.216; Body Fluid WBC 716 /uL; PATH Referral YES
[2023-12-03 15:50] LABS: Fluid Laterality RIGHT
[2023-12-03 16:01] LABS: Cyto Order Verification Order Verified
[2023-12-03 16:02] LABS: Creatinine Body Fluid 1.63 (0.5-0.9); LDH Pleural Fluid 77 U/L; Total Protein Pleural Fluid 2.8 g/dL; Triglycerides, Pleural Fluid 33 mg/dL
[2023-12-03 18:08] LABS: Troponin 5 6HR 50.38 ng/L (0-10); Troponin 5 6HR Delta 6.38 ng/L (0-12)
[2023-12-03] MEDS: acetylcysteine 200 mg/mL MDV 10 mL 100 MG INHALATION (19:29)
[2023-12-03 20:39] LABS: Glucose Point of Care 145 mg/dL (70-110)
[2023-12-03] MEDS: metoprolol tartrate 25 mg Tablet PO (20:59)
[2023-12-03] MEDS: methylPREDNISolone sod succ 40 mg/mL INJ IVP (21:00)
[2023-12-03] MEDS: chlordiazePOXIDE 10 mg Capsule PO (21:00)
[2023-12-03] MEDS: dilTIAZem 100 MG in sodium chloride 0.9% (add-van) 100 ML 7.5 MG IV (23:23)
[2023-12-03] MEDS: dilTIAZem 60 mg Tablet PO (23:23)
[2023-12-04] VITALS (33 sets, daily range): BP systolic 105–140; BP diastolic 51–85; PULSE 70–123; RESP 16–33; TEMP 36.8; O2SAT 70–100; BMI 33.8
[2023-12-04] MEDS: ipratropium-albuterol 3 mL Neb INHALATION ×2 (01:50→08:06)
[2023-12-04] MEDS: acetylcysteine 200 mg/mL MDV 10 mL 100 MG INHALATION ×2 (01:52→08:06)
[2023-12-04 03:56] LABS: ABG PCO2 52.4 mmHg (35-45); ABG PH Result 7.34 (7.35-7.45); Arterial Blood Gas Hematocrit 23.3 % (37-47); Base Excess ABG 2.1 mmol/L (-2.0-2.0); Blood Gas Allen Test Pos; Blood Gas Sample Site Radial, left; Blood Gas Sample Type Arterial; HCO3 ABG 28.2 mmol/L (22-26); Oxygen Device NC; PO2 ABG 69.7 mmHg (80.0-100.0); PO2 FiO2 Ratio Arterial Blood 0
[2023-12-04 04:30] LABS: Hematocrit 34.5 % (36-47); Lymphocytes # 0.5 10^3/uL (0.8-4.8); Lymphocytes % 6.6 %; Mean Corpuscular HGB Conc 30.7 g/dL (30-55); Mean Corpuscular Hemoglobin 28.2 pg (27-33); Mean Corpuscular Volume 91.8 fl (85-98); Mean Platelet Volume 9.8 fL (7.4-10.4); Monocytes # 0.2 10^3/uL (0.2-0.9); Monocytes % 2.6 %; Neutrophils # 6.33 10^3/uL (1.8-7.7); Neutrophils % 90.4 %; Nucleated Red Blood Cells % 0.4 %; Platelet Count 253 10^3/cmm (157-399); Red Blood Count 3.76 10^6/uL (3.85-5.65); Red Cell Distribution Width 15.3 % (12.1-15.1)
[2023-12-04 04:49] LABS: Alanine Aminotransferase 24 U/L (0-33); Albumin Level 3.6 g/dL (3.5-5.2); Alkaline Phosphatase 116 U/L (35-105); Anion Gap 17.1 (5-19); Aspartate Amino Transferase 15 U/L (0-32); Blood Urea Nitrogen 49 mg/dL (8-23); Calcium 7.9 mg/dL (8.5-10.5); Carbon Dioxide 27 mmol/L (22-29); Chloride 103 mmol/L (98-107); Creatinine Clr Calc Pharmacy 25.9269; Globulin 2.6 g/dL (1.3-4.6); Glucose 150 mg/dL (65-115); Osmolality Calculated 312 mOsm/kg (285-295); Phosphorus 3.3 mg/dL (2.5-4.5); Potassium 4.1 mmol/L (3.5-5.1); Sodium 143 mmol/L (136-145); Total Bilirubin 0.5 mg/dL (0.15-1.2); Total Protein 6.2 g/dL (6.6-8.7)
[2023-12-04 05:00] LABS: NT Pro B Type Natriuretic Pept 6391 pg/mL (0-450)
[2023-12-04] MEDS: methylPREDNISolone sod succ 40 mg/mL INJ IVP ×3 (05:58→21:13)
[2023-12-04] MEDS: levothyroxine 112 mcg Tablet PO (05:58)
[2023-12-04] MEDS: FUROsemide 10 mg/mL SDV 4mL 40 MG IVP (05:58)
[2023-12-04] MEDS: dilTIAZem 60 mg Tablet PO ×4 (06:07→23:22)
--- NOTE | 2023-12-04 07:00 | XRR_ITS ---
PROCEDURE INFORMATION: Exam: XR Chest Exam date and time: 12/04/2023 6:13 AM Age: 83 years old Clinical indication: Shortness of breath; Additional info: SOB TECHNIQUE: Imaging protocol: Radiologic exam of the chest. Views: 1 view. Total images: 1 COMPARISON: CR XR chest 1V portable [id number] 12/03/2023 2:09 PM FINDINGS: Tubes, catheters and devices: Intraspinal cord stimulator electrodes noted. Lungs: Previously noted bibasilar opacities have improved. Benign granulomatous disease of the lung is noted. Pleural spaces: There is blunting of the right costophrenic angle, likely indicating a small pleural effusion. Heart/Mediastinum: Heart size is stable when compared to the prior exam. Diaphragm: There is nonspecific elevation of the right hemidiaphragm. Bones/joints: Osseous structures are unchanged from the prior exam. Soft tissues: Left axillary surgical clips. XR/XR chest 1V portable [id number] IMPRESSION: 1. Previously noted bibasilar opacities have improved. 2. There is blunting of the right costophrenic angle, likely indicating a small pleural effusion.
[2023-12-04] MEDS: sodium chloride 3.5% neb 4 mL Neb INHALATION (08:06)
[2023-12-04] MEDS: metoprolol tartrate 25 mg Tablet PO (08:52)
[2023-12-04] MEDS: pantoprazole DR 40 mg Tablet PO (08:52)
[2023-12-04] MEDS: atorvastatin 40 mg Tablet 20 MG PO (08:52)
[2023-12-04] MEDS: meropenem 1,000 MG in sodium chloride 0.9% (plus) 50 ML 100 MG IV ×2 (08:53→21:12)
--- NOTE | 2023-12-04 12:53 | XRR_ITS ---
PROCEDURE INFORMATION: Exam: XR Bilateral Hips Exam date and time: 12/04/2023 12:04 PM Age: 83 years old Clinical indication: Pain and injury or trauma; Blunt trauma (contusions or hematomas); Bilateral; Hip and pelvic region; Hip pain; Injury details: PT fall in room; Additional info: Pain, portable TECHNIQUE: Imaging protocol: Radiologic exam of the bilateral hips. Views: 2 views of hips with pelvis when performed. COMPARISON: CT pelvis wo con [id number] 05/02/2023 11:54 AM FINDINGS: Tubes, catheters and devices: Generator for presumed spinal cord stimulator is seen overlying the left iliac bone. Recommend clinical correlation. Bones/joints: Redemonstration of the right total hip arthroplasty. No evidence of hardware failure. The bony pelvic ring is intact. Deformity of the left proximal femur is noted concerning for a left femoral neck subcapital fracture. Soft tissues: Unremarkable. XR/XR hip BI m 5V wo/w pel* [id number] IMPRESSION: Findings concerning for a left femoral neck fracture. Findings may be further assessed with CT scan if clinically warranted.
--- NOTE | 2023-12-04 12:58 | PC.NURSE ---
at 1240 staff heard pt calling out for help.pt's had stepped out...and pt got up out of chair and fell at foot of bed.found flat..face down.total lift to bed.vss.dr potts here and assisted.he ordered an xray of pelvis and bilat hips.pt is c/o pain in left hip.no abrasions/contusions noted on head or elsewhere.dr anglin notified.
[2023-12-04] MEDS: morphine 4 mg/mL SDV 1 mL 2 MG IVP ×2 (14:24→21:48)
--- NOTE | 2023-12-04 14:26 | CT_ITS ---
WS: [id number] CT HEAD NONCONTRAST HISTORY: fall TECHNIQUE: Contiguous axial imaging performed through the brain in 2.5 mm imaging. Bone and soft tiss ue windows. Sagittal and coronal reformats reviewed. All CT scans at [facility] use at least one of these dose optimization techniques: automated exposure control; mA and/or kV adjustment per pa tient size (includes targeted exams where dose is matched to clinical indication); or iterative recon struction. DLP: 1168.69 mGy.cm COMPARISON: 09/15/2008 No acute intracranial hemorrhage, midline shift or mass effect. Moderate atrophy. Severe changes of small vessel ischemic disease throughout the white matter. Marked progression since 2008. Confluent white matter disease is diffuse. Mild cerebellar atrophy. Ventricles: Normal size with no hydrocephalus. No inferior displacement of the cerebellar tonsils. Paranasal sinuses: As visualized are clear. Mastoid air cells: Well pneumatized. Calvarium and scalp: Skull is intact with no soft tissue edema or swelling. IMPRESSION: 1. No acute intracranial hemorrhage or edema. 2. Severe confluent low-attenuation throughout the white matter. Most typical for severe small vesse l ischemic changes. 3. No skull fracture.
--- NOTE | 2023-12-04 14:26 | CT_ITS ---
WS: [id number] CT LEFT HIP, NONCONTRAST. HISTORY: fall Technique: All CT scans at [facility] use at least one of these dose optimization techniques: automated exposure control; mA and/or kV adjustment per patient size (includes targeted exams where dose is matched to clinical indication); or iterative reconstruction. DLP: 1157.12 mGy.cm COMPARISON: Radiographs 12/04/2023 Acute impacted subcapital LEFT femoral neck fracture. There is mild impaction along the fracture line without significant displacement. A portion of the fracture extends into the mid femoral neck. No di splacement from the acetabulum. No additional fractures. Mild soft tissue stranding around the hip from the recent injury. No significant hematoma. Vázquez cath eter present in the urinary bladder. Numerous sigmoid diverticula identified. IMPRESSION: 1. Acute, nondisplaced but impacted LEFT hip subcapital fracture with extension into the femoral nec k. 2. No additional fractures.
--- NOTE | 2023-12-04 14:42 | CT_ITS ---
WS: [id number] CT LUMBAR SPINE, noncontrast. HISTORY: FALL TECHNIQUE: Contiguous 2.0 mm axial imaging are performed. Sagittal and coronal reformats are submitte d and reviewed. All CT scans at [facility] use at least one of these dose optimization techni ques: automated exposure control; mA and/or kV adjustment per patient size (includes targeted exams w here dose is matched to clinical indication); or iterative reconstruction. IV contrast: None DLP: 1157.12 mGy.cm COMPARISON: CT pelvis 05/02/2023 LEFT curvature lumbar spine. Increase in the lower lumbar lordosis. L2 and L3 retrolisthesis by 3 mm. L5 anterolisthesis by 3 mm. Disc spaces are narrowed and desiccated. No acute lumbar vertebral body fracture. No pedicle or transverse spinous process fracture. Reidentified is a sclerotic lesion in the LEFT ilium which is very similar in size and extent as comp ared to pelvic CT from 05/02/2023. This may be an indolent or treated metastatic site. Mild atherosclerosis aorta. Small RIGHT pleural effusion. Low-attenuation mass in the RIGHT kidney is probably a cyst. Dorsal column stimulator wires are noted. IMPRESSION: 1. No acute lumbar spine fracture. 2. Degenerative scoliosis and spondylosis. 3. Stable sclerotic lesion in the LEFT ilium. No progression since 05/02/2023 but this is new since . May be a treated osseous metastatic site.
--- NOTE | 2023-12-04 15:09 | PC.NURSE ---
Addendum entered by Marleny Mon RN 12/04/23 15:10: ct of head,spine and left hip Original Note: ct scan performed on left hip.pt tolerated procedure well.
--- NOTE | 2023-12-04 16:22 | P.PN_ITS ---
Subjective 2 Subjective: Patient was seen this morning, she is currently off BiPAP, she is currently on 5 L she is resting more comfortably, no nasal flaring no intercostal retractions, she tells me that her shortness of breath has significantly improved, we discussed the plans for today was for speech therapy blanquita, PT OT, continue monitoring in the ICU monitoring her respiratory status, she has a history of silent aspiration and I am worried about recurrent aspiration events, discussed morbidity and mortality, she voiced understanding, all questions answered In the afternoon, patient was visiting with her , when she got up, and got tangled in her Vázquez catheter tubing, and fell to the floor fell onto her left hip, no head trauma no loss of consciousness, patient was seen thereafter on examination, she has no ankle pain, no foot pain, no pain along her tibia or fibula, no pain in her knee, her only pain is in her left hip, when asked her if her back is hurting her she tells me her back always hurts her but it is not hurting more than normal she denies any shoulder pain no arm pain no pain along her rib cage no head trauma no loss of consciousness no significant bleeding, we discussed her x-ray findings, she was found to have a right hip fracture will which will likely require surgical intervention, we discussed risks and benefits, she voiced understanding, all questions answered, agreed to proceed, was also at bedside, agrees to proceed with surgical intervention, spoke to Dr. Bay, CT left hip ordered, Vitals/I&O/Wt Last Vital Signs Temp 98.8 F 12/03/23 19:53 Pulse 96 12/04/23 16:00 Resp 19 H 12/04/23 16:00 BP 121/65 12/04/23 16:00 Pulse Ox 70 L 12/04/23 15:30 O2 Del Method Nasal Cannula 12/04/23 13:26 O2 Flow Rate 5 12/04/23 13:26 FiO2 50 12/03/23 23:11 12/04/23 12/04/23 12/04/23 06:59 14:59 22:59 Intake Total 94.375 / 199.042 330.000 / 330.000 Output Total 450 / 1050 Balance -355.625 / -850.958 330.000 / 330.000 Weight last 48 hrs Weight 86.75 kg Weight 88.904 kg Weight 90.974 kg Physical Exam 2 Const: COMMON NORMALS: no acute distress and patient oriented x3 Resp: COMMON NORMALS: normal respiratory effort, No retractions, No use of accessory muscles and clear to auscultation bilaterally AUSCULTATION: clear to auscultation bilaterally Cardio: COMMON NORMALS: regular rate, regular rhythm, S1 normal heart sound present and S2 normal heart sound present RATE: regular rate RHYTHM: r egular rhythm HEART SOUNDS: S1 normal heart sound present and S2 normal heart sound present GI: COMMON NORMALS: Normal to inspection, nondistended, normoactive bowel sounds present and non-tender Extremity: COMMON NORMALS: no pedal edema Neuro: COMMON NORMALS: patient oriented x3 Psych: COMMON NORMALS: mental status grossly normal Urinary Catheter Management: Vázquez: Cath Placed During This Visit: yes Reason for Continuing Indwelling Catheter: Accurate Measurement of Urinary Output in Critically Ill Patients Urinary Catheter Date of Insertion: 12/02/23 Urinary Catheter Time of Insertion: 17:28 Data 12/04/23 04:11 12/04/23 04:11 Micro: Microbiology 12/03/23 Unknown Gram Stain - Final Pleural Fluid Body Fluid Culture - Preliminary 12/02/23 14:57 Blood Culture - Preliminary Blood NEGATIVE TO DATE 12/02/23 14:52 Blood Culture - Preliminary Blood NEGATIVE TO DATE A&P Assessment and plan (1) Acute exacerbation of CHF (congestive heart failure): Qualifiers: Heart failure type: diastolic Qualified Code(s): I50.33 - Acute on chronic diastolic (congestive) heart failure (2) Acute respiratory failure with hypoxemia: (3) Acute on chronic kidney failure: Qualifiers: Acute renal failure type: unspecified Chronic kidney disease stage: u nspecified stage Qualified Code(s): N17.9 - Acute kidney failure, unspecified; N18.9 - Chronic kidney disease, unspecified (4) Chronic respiratory failure: Qualifiers: Respiratory failure complication: unspecified whether with hypoxia or hypercapnia Qualified Code(s): J96.10 - Chronic respiratory failure, unspecified whether with hypoxia or hypercapnia (5) Mitral regurgitation: Qualifiers: Cardiac valve disease etiology: nonrheumatic Qualified Code(s): I34.0 - Nonrheumatic mitral (valve) insufficiency (6) Moderate pulmonary hypertension: (7) Aortic stenosis: Qualifiers: Cardiac valve disease etiology: nonrheumatic Qualified Code(s): I35.0 - Nonrheumatic aortic (valve) stenosis (8) Atrial fibrillation with rapid ventricular response: (9) Aspiration pneumonia: (10) Acute on chronic respiratory failure with hypoxia and hypercapnia: (11) Pulmonary hypertension: Plan Acute hypoxic hypercarbic respiratory failure ? Likely secondary to CHF exacerbation, aortic stenosis, A-fib with RVR ? Diastolic CHF exacerbation, BNP 19828 ? With concerns for underlying silent aspiration, aspiration pneumonia, ? During last hospitalization, patient had thick mucus secretions around left bronchial tree, with complete opacification of left lung, she also has right hemidiaphragmatic elevation, -Initially in mild to moderate respiratory distress and his cardiac stepdown unit, this afternoon much more comfortable in intensive care unit ? Status post thoracocentesis, 1 L removed, so far Gram stain within normal limits, pathology pending ? Plan, ? Monitor Intensive Care Unit ?continue BiPAP during the night, scheduled during the day ? Solu-Medrol 40 mg IV every 8 hours -Lasix 40 mg IV twice daily on hold as patient looks euvolemic ? Patient has severe aortic stenosis low gradient likely also playing a role ? A-fib with RVR also playing a role ? meropenem ? Monitor respiratory status closely, ? CODE STATUS full code Lovenox for DVT prophylaxis TANJA on CKD, creatinine 1.8, monitor as on diuresis Aortic stenosis, severe low gradient, likely also playing A-fib with RVR ? Cardizem 60 every 6 hours ? 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 Acute, nondisplaced but impacted LEFT hip subcapital fracture with extension into the femoral neck. Plan ? Bedrest ? Morphine for pain control, spoke to Dr. Bay, will consult n.p.o. midnight for surgical intervention tomorrow Full code ? SCDs for DVT prophylaxis Status is stable, Attestations 2 Medical Necessity Statement*: Patient requires hospitalization for acute hypoxic respiratory failure, left hip fracture Diagnoses Acute on chronic diastolic congestive heart failure I50.33 Heart failure type: diastolic Acute respiratory failure with hypoxemia J96.01 Acute renal failure superimposed on chronic kidney disease, unspecified acute renal failure type, unspecified CKD stage N17.9; N18.9 Acute renal failure type: unspecified Chronic kidney disease stage: unspecified stage Chronic respiratory failure, unspecified whether with hypoxia or hypercapnia J96.10 Respiratory failure complication: unspecified whether with hypoxia or hypercapnia Nonrheumatic mitral valve regurgitation I34.0 Cardiac valve disease etiology: nonrheumatic Moderate pulmonary hypertension I27.20 Nonrheumatic aortic valve stenosis I35.0 Cardiac valve disease etiology: nonrheumatic Atrial fibrillation with rapid ventricular response I48.91 Aspiration pneumonia J69.0 Acute on chronic respiratory failure with hypoxia and hypercapnia J96.21; J96.22 Pulmonary hypertension I27.20
--- NOTE | 2023-12-04 16:37 | P.CONIM_ITS ---
Providers/Reason For Consult 2 Consulting Physician/Specialty*: Earl Bay DO/orthopedic surgery Reason for Consult*: Left hip valgus impacted femoral neck fracture Requesting Physician: Dr. Rivero Attending Physician: Dilan Rivero MD Primary Care Provider: Jo Ledezma MD History of Present Illness History of Present Illness Kelley Quezada is a 83 year old female patient admitted on 12/02/2023 to the ICU secondary to respiratory failure. Is being managed by hospitalist team starting to recover. She got up this afternoon got tangled up with Vázquez catheter tube and subsequently fell onto her left hip denies any head trauma or loss of consciousness I was contacted by the hospitalist as the x-ray of the left hip was found to have a valgus impacted nondisplaced left hip femoral neck fracture. She also has history of a right hip fracture that was treated with a hip hemiarthroplasty 10 years ago she has done well with this. This point time orthopedics was consulted for evaluation and treatment recommendations no other complaints at this time or pain elsewhere despite the left hip. Review of Systems 2 General: Reports: 10 or more systems reviewed and unremarkable except in HPI and below Medications/Allergies Home Medications Medication Instructions Recorded Confirmed Last Taken Type calcium carbonate 600 mg calcium 600 mg PO DAILY 08/09/22 12/02/23 12/02/23 History (1,500 mg) tablet (Calcium) ondansetron HCl 4 mg tablet 4 mg PO Q6H PRN nausea and 08/24/23 12/02/23 Unknown Rx vomiting #30 tabs clonidine HCl 0.1 mg tablet 0.1 mg PO BID 08/27/23 12/02/23 12/02/23 History levothyroxine 125 mcg tablet 125 mcg PO QAM 08/27/23 12/02/23 12/02/23 History metoprolol tartrate 50 mg tablet 75 mg PO BID 08/27/23 12/02/23 12/02/23 History omeprazole 40 mg capsule,delayed 40 mg PO DAILY 08/27/23 12/02/23 12/02/23 History release portable oxygen at 2L via NC #1 ea 09/20/23 12/02/23 Unknown Rx chest vest #1 ea 09/21/23 12/02/23 Unknown Rx apixaban 5 mg tablet (Eliquis) 5 mg PO Q12H 30 days #60 tabs 10/09/23 12/02/23 12/02/23 Rx lovastatin 20 mg tablet 40 mg (2 x 20 mg) PO DAILY #60 tabs 10/30/23 12/02/23 12/02/23 Rx letrozole 2.5 mg tablet 2.5 mg PO DAILY #30 tabs 11/22/23 12/02/23 12/02/23 Rx Allergies Allergy/AdvReac Type Severity Reaction Status Date / Time adhesive Allergy Intermediate ALGY-Bliste Verified 12/02/23 15:32 r clarithromycin [From Biaxin] Allergy Intermediate thrush Verified 12/02/23 15:32 Penicillins Allergy Unknown Unknown Verified 12/02/23 15:32 Current Medications Generic Name Dose Route Start Last Admin Trade Name Freq PRN Reason Stop Dose Admin Acetylcysteine 100 mg 12/03/23 14:00 12/04/23 13:25 Acetylcysteine 200 Mg/Ml Mdv 10 Ml INHALATION Not Given Q6H.RESP ABHAY Albuterol/Ipratropium 3 ml 12/02/23 20:00 12/04/23 13:25 Ipratropium-Albuterol 3 Ml Neb INHALATION Not Given Q6H.RESP ABHAY Apixaban 2.5 mg 12/02/23 18:15 12/02/23 19:17 Apixaban 5 Mg Tablet PO 2.5 mg Q12H ABHAY Administration Atorvastatin Calcium 20 mg 12/03/23 09:00 12/04/23 08:52 Atorvastatin 40 Mg Tablet PO 20 mg DAILY ABHAY Administration Diltiazem HCl 60 mg 12/03/23 00:15 12/04/23 12:08 Diltiazem 60 Mg Tablet PO 60 mg Q6H ABHAY Administration Diltiazem HCl 100 mg/ Sodium 100 mls @ 0 mls/hr 12/02/23 18:45 12/04/23 12:00 Chloride IV Infused .Q0M ABHAY Titration Protocol Per Protocol Meropenem 1,000 mg/ Sodium 50 mls @ 100 mls/hr 12/03/23 10:00 12/04/23 09:30 Chloride IV Infused Q12H ABHAY Infusion Protocol Levothyroxine Sodium 112 mcg 12/03/23 06:00 12/04/23 05:58 Levothyroxine 112 Mcg Tablet PO 112 mcg QAM ABHAY Administration Methylprednisolone Sodium Succinate 40 mg 12/03/23 21:00 12/04/23 12:08 Methylprednisolone Sod Succ 40 Mg/Ml Inj IVP 40 mg Q8H ABHAY Administration Metoprolol Tartrate 25 mg 12/02/23 23:39 12/04/23 08:52 Metoprolol Tartrate 25 Mg Tablet PO 25 mg BID@0900,2100 ABHAY Administration Morphine Sulfate 2 mg 12/02/23 18:06 12/04/23 14:24 Morphine 4 Mg/Ml Sdv 1 Ml IVP 2 mg Q4H PRN Administration SEVERE PAIN Non-Formulary Medication 2.5 mg 12/03/23 09:00 12/04/23 08:53 Letrozole PO Not Given DAILY ABHAY Pantoprazole Sodium 40 mg 12/03/23 09:00 12/04/23 08:[address] 40 Mg Tablet PO 40 mg DAILY ABHAY Administration Sodium Chloride 4 ml 12/02/23 20:00 12/04/23 08:06 Sodium Chloride 3.5% Neb 4 Ml Neb INHALATION 4 ml BID.RESPIRATORY ABHAY Administration PFSH Acute 2 PFSH: Medical History Osteoporosis Gout History of right shoulder fracture Breast cancer, left 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 Nu Hubbard [facility] Family History Sister Cancer Breast Other Family history non-contributory Suicide Denies family history of Diabetes CAD (coronary artery disease) Clotting disorder Dementia Hyperlipidemia Psychiatric illness Chronic kidney disease (CKD) Anesthesia complication Bleeding disorder Lung disease Hypertension Stroke Social History Smoking and tobacco/nicotine status: former use of tobacco/nicotine Quit status (tobacco/nicotine): has quit using Year quit tobacco: 1967 Former quit date comment: 0.25 ppd X 4 years Second hand smoke exposure: No Alcohol intake: never Substance/Drug Use: never Caregiver/support person: Yes Lives independently: Yes Household members: spouse Marital status: Current occupational status: retired Current gender identity: Female Special temi needs: No Agree to transfusion: Yes Vitals/I&O/Wt Last Vital Signs Temp 98.8 F 12/03/23 19:53 Pulse 96 12/04/23 16:00 Resp 19 H 12/04/23 16:00 BP 121/65 12/04/23 16:00 Pulse Ox 70 L 12/04/23 15:30 O2 Del Method Nasal Cannula 12/04/23 13:26 O2 Flow Rate 5 12/04/23 13:26 FiO2 50 12/03/23 23:11 12/04/23 12/04/23 12/04/23 06:59 14:59 22:59 Intake Total 94.375 / 199.042 330.000 / 330.000 Output Total 450 / 1050 Balance -355.625 / -850.958 330.000 / 330.000 Weight last 48 hrs Weight 191 lb 4 oz Weight 196 lb Weight 200 lb 9 oz Physical Exam 2 Narrative: Orthopedic specific examination: Examination left hip left lower extremity is in good length and alignment there is no evidence of shortening or external rotation. She does have discomfort with logroll examination. Unable to perform Stinchfield secondary to pain and discomfort. She has tenderness palpation of the left hip. No tenderness to palpation of the pelvic compression test. She is able to wiggle her toes of the left lower extremity plantarflex and dorsiflex ankle sensations intact light touch distally distal pulses palpable. Compartments are soft compressible normal swelling about the left hip. Secondary survey examination: Demonstrates that patient secondary survey examinations unremarkable for any tenderness to palpation or deformities to the bilateral upper extremity joints and the right lower extremity joints these have gross motor and sensory appears to be intact. Urinary Catheter Management: Vázquez: Cath Placed During This Visit: yes Reason for Continuing Indwelling Catheter: Accurate Measurement of Urinary Output in Critically Ill Patients Urinary Catheter Date of Insertion: 12/02/23 Urinary Catheter Time of Insertion: 17:28 Data 12/04/23 04:11 12/04/23 04:11 Micro: Microbiology 12/03/23 Unknown Gram Stain - Final Pleural Fluid Body Fluid Culture - Preliminary 12/02/23 14:57 Blood Culture - Preliminary Blood NEGATIVE TO DATE 12/02/23 14:52 Blood Culture - Preliminary Blood NEGATIVE TO DATE Xray Ortho: My impression: X-rays of the left hip reviewed in person interpreted by myself demonstrating a valgus impacted left hip femoral neck fracture. CT scan reviewed and demonstrates a valgus impacted left femoral neck fracture is nondisplaced no displacement with aligned anterior cortex. Radiologist's impression: IMPRESSION: 1. Acute, nondisplaced but impacted LEFT hip subcapital fracture with extension into the femoral neck. 2. No additional fractures. A&P Assessment and plan (1) Fracture of femoral neck, left: Plan N.p.o. at midnight Internal medicine on board as primary Hold anticoagulation, SCDs and DVT prophylaxis per primary team X-rays reviewed CT scan reviewed and demonstrate valgus impacted nondisplaced left hip femoral neck fracture Pain control Nonweightbearing left lower extremity Ice as needed Plan for OR tomorrow for left hip CRPP MDM: Patient is an 83-year-old female who sustained a ground-level fall today while getting up and got entangled in her Vázquez catheter tubing and subsequently fell onto her left hip she was admitted in the ICU on 12/02/2023 secondary to patient having acute respiratory failure was being managed by the hospitalist team as started to recover pertaining to this however she sustained a left hip valgus impacted femoral neck fracture and orthopedics was consulted. At this point time this is valgus impacted and within appropriate position for left hip CRPP. She had a right hip hemiarthroplasty secondary to a displaced femoral neck fracture roughly 10 years ago and is done well with this. This point in time she has 2 options we talked about recommendations for surgical intervention for earlier mobilization as well as pain control. Her surgical options include a left hip CRPP versus left hip femoral neck fracture. Given her current hospitalization and medical comorbidities I do feel as though a shorter surgery that is less invasive would be a better option and given the fracture pattern is more amenable to cannulated screw fixation I feel this would likely be a better option for her and a reasonable option trying she does understand as well as her that the rate of complication with the screws higher however I feel given her current hospitalization hip hemiarthroplasty may be more invasive and ultimately through shared decision making they like to proceed with a left hip CRPP. They understand the ins and outs procedure risk benefits complication alternatives of surgery. Risk of surgery include not limited to make a better make it worse injury to nerves vessels or tendons, malunion, nonunion, hardware failure prominence and possible further surgery understanding risk of surgery the neck to proceed all questions answered at this time. Patient had on the surgery schedule tomorrow. N.p.o. at midnight hold a.m. anticoagulation. Coding Level of Care Code Acute Code for [facility] Fwd Diagnoses Fracture of femoral neck, left S72.002A Time Spent (min) 45
--- NOTE | 2023-12-04 18:05 | PC.NURSE ---
cardizem iv weaned off at 1200 today.heart rate is now increasing..110-120.bp stable.dr anglin notified.we will increase dose of metoprolol to 50 mg po bid starting now.
[2023-12-04] MEDS: metoprolol tartrate 25 mg Tablet 50 MG PO (18:32)
[2023-12-04] MEDS: acetaminophen 325 mg Tablet 650 MG PO (23:22)
[2023-12-04] MEDS: LORazepam 2 mg/mL INJ 10 mL MDV 0.5 MG IVP (23:23)
--- NOTE | 2023-12-04 23:34 | PC.NURSE ---
pt very restless tonight. continues to try to get out of bed even with redirecting. pt wants to get out of bed because its not big enough for me. pt repositioned multiple times to try to make her more comfortable with no success. nurse contacted physician for something to help her settle and new orders were given and administered. nurse to monitor pt for effectiveness.
--- NOTE | 2023-12-04 23:36 | PC.NURSE ---
Addendum entered by Taco Ireland RN 12/04/23 23:39: This nurse and data warehouse architect Ludy witnessed for VIBHA Moyer as they pulled a pre filled syringe from the [facility] even though the [facility] said pull it out from a multi vile. This nurse witnessed the RN waste the 1.5 mg was that left in the pre filled syringe. Original Note: 0.5mg ativan ordered, when nurse pulled med from [facility] it was discovered that prefilled syringes were now stocked with 2mg. pyxis still stated that the med is stored in [facility]. data warehouse architect and charge nurse were both present and a note was put in the pyxis with the waste.
[2023-12-05] VITALS (49 sets, daily range): BP systolic 98–146; BP diastolic 64–96; PULSE 63–107; RESP 15–28; TEMP 36.3–37.1; O2SAT 76–97
[2023-12-05] MEDS: methylPREDNISolone sod succ 40 mg/mL INJ IVP ×3 (05:03→22:45)
[2023-12-05] MEDS: levothyroxine 112 mcg Tablet PO (05:03)
[2023-12-05] MEDS: dilTIAZem 60 mg Tablet PO ×3 (05:03→22:46)
[2023-12-05 05:11] LABS: Basophils % 0.1 %; Lymphocytes # 0.6 10^3/uL (0.8-4.8); Lymphocytes % 4.7 %; Mean Corpuscular HGB Conc 30.3 g/dL (30-55); Mean Corpuscular Hemoglobin 28.2 pg (27-33); Mean Corpuscular Volume 93.3 fl (85-98); Mean Platelet Volume 9.9 fL (7.4-10.4); Monocytes # 0.4 10^3/uL (0.2-0.9); Monocytes % 3.1 %; Neutrophils # 12.24 10^3/uL (1.8-7.7); Neutrophils % 91.7 %; Nucleated Red Blood Cells % 0.3 %; Platelet Count 253 10^3/cmm (157-399); Red Blood Count 4.18 10^6/uL (3.85-5.65); Red Cell Distribution Width 15.6 % (12.1-15.1); White Blood Count 13.36 10^3/uL (3.29-11.43)
[2023-12-05 05:29] LABS: Alanine Aminotransferase 22 U/L (0-33); Albumin Level 3.6 g/dL (3.5-5.2); Alkaline Phosphatase 109 U/L (35-105); Anion Gap 14.6 (5-19); Aspartate Amino Transferase 16 U/L (0-32); Blood Urea Nitrogen 53 mg/dL (8-23); Calcium 7.8 mg/dL (8.5-10.5); Carbon Dioxide 28 mmol/L (22-29); Chloride 102 mmol/L (98-107); Creatinine Clr Calc Pharmacy 25.5935; Globulin 2.6 g/dL (1.3-4.6); Glucose 156 mg/dL (65-115); Osmolality Calculated 308 mOsm/kg (285-295); Potassium 4.6 mmol/L (3.5-5.1); Sodium 140 mmol/L (136-145); Total Bilirubin 0.5 mg/dL (0.15-1.2); Total Protein 6.2 g/dL (6.6-8.7)
[2023-12-05 05:30] LABS: C Reactive Protein 6.7 mg/L (0.0-4.9)
[2023-12-05 05:40] LABS: NT Pro B Type Natriuretic Pept 3937 pg/mL (0-450)
[2023-12-05] MEDS: ipratropium-albuterol 3 mL Neb INHALATION (07:52)
[2023-12-05] MEDS: acetylcysteine 200 mg/mL MDV 10 mL 100 MG INHALATION (07:52)
[2023-12-05] MEDS: sodium chloride 3.5% neb 4 mL Neb INHALATION (07:53)
[2023-12-05] MEDS: atorvastatin 40 mg Tablet 20 MG PO (08:58)
[2023-12-05] MEDS: metoprolol tartrate 25 mg Tablet 50 MG PO ×2 (08:58→22:46)
[2023-12-05] MEDS: pantoprazole DR 40 mg Tablet PO (08:58)
[2023-12-05] MEDS: meropenem 1,000 MG in sodium chloride 0.9% (plus) 50 ML 100 MG IV ×2 (10:17→21:11)
--- NOTE | 2023-12-05 15:29 | P.PN_ITS ---
Subjective 2 Subjective: Patient was seen this morning, she is alert to person to place not to time, she follows all commands, currently on 4 L, no fevers overnight, currently n.p.o. for hip surgery, her pain is well-controlled patient was seen later on with the at bedside she is much more alert awake follows all commands, alert oriented x 3, pain is under control, discussed her CT scan findings, will continue to monitor respiratory status closely she will likely need penitentiary placement, will continue IV antibiotics we discussed her chronic silent aspiration, my worry is is that this will continue to cause recurrent aspiration and recurrent episodes of respiratory failure will continue to monitor, in the ICU for today Vitals/I&O/Wt Last Vital Signs Temp 98.7 F 12/05/23 12:30 Pulse 69 12/05/23 14:10 Resp 23 H 12/05/23 12:30 BP 104/75 12/05/23 12:30 Pulse Ox 93 12/05/23 12:30 O2 Del Method Nasal Cannula 12/05/23 12:30 O2 Flow Rate 3 12/05/23 09:00 FiO2 50 12/03/23 23:11 12/05/23 12/05/23 12/05/23 06:59 14:59 22:59 Intake Total 30 / 1010.000 60 / 60 Output Total 350 / 1750 Balance -320 / -740.000 60 / 60 Weight last 48 hrs Weight 90.537 kg Weight 86.75 kg Physical Exam 2 Const: COMMON NORMALS: no acute distress and patient oriented x3 Resp: COMMON NORMALS: normal respiratory effort, No retractions, No use of accessory muscles and clear to auscultation bilaterally AUSCULTATION: clear to auscultation bilaterally Cardio: COMMON NORMALS: regular rate, regular rhythm, S1 normal heart sound present and S2 normal heart sound present RATE: regular rate RHYTHM: r egular rhythm HEART SOUNDS: S1 normal heart sound present and S2 normal heart sound present GI: COMMON NORMALS: Normal to inspection, nondistended, normoactive bowel sounds present and non-tender Extremity: COMMON NORMALS: no pedal edema Neuro: COMMON NORMALS: patient oriented x3 Psych: COMMON NORMALS: mental status grossly normal Urinary Catheter Management: Vázquez: Cath Placed During This Visit: yes Reason for Continuing Indwelling Catheter: Accurate Measurement of Urinary Output in Critically Ill Patients Urinary Catheter Date of Insertion: 12/02/23 Urinary Catheter Time of Insertion: 17:28 Data 12/05/23 05:03 12/05/23 05:03 Micro: Microbiology 12/03/23 Unknown Gram Stain - Final Pleural Fluid Body Fluid Culture - Preliminary A&P Assessment and plan (1) Acute exacerbation of CHF (congestive heart failure): Qualifiers: Heart failure type: diastolic Qualified Code(s): I50.33 - Acute on chronic diastolic (congestive) heart failure (2) Acute respiratory failure with hypoxemia: (3) Acute on chronic kidney failure: Qualifiers: Acute renal failure type: unspecified Chronic kidney disease stage: u nspecified stage Qualified Code(s): N17.9 - Acute kidney failure, unspecified; N18.9 - Chronic kidney disease, unspecified (4) Chronic respiratory failure: Qualifiers: Respiratory failure complication: unspecified whether with hypoxia or hypercapnia Qualified Code(s): J96.10 - Chronic respiratory failure, unspecified whether with hypoxia or hypercapnia (5) Mitral regurgitation: Qualifiers: Cardiac valve disease etiology: nonrheumatic Qualified Code(s): I34.0 - Nonrheumatic mitral (valve) insufficiency (6) Moderate pulmonary hypertension: (7) Aortic stenosis: Qualifiers: Cardiac valve disease etiology: nonrheumatic Qualified Code(s): I35.0 - Nonrheumatic aortic (valve) stenosis (8) Atrial fibrillation with rapid ventricular response: (9) Aspiration pneumonia: (10) Acute on chronic respiratory failure with hypoxia and hypercapnia: (11) Pulmonary hypertension: Plan Acute hypoxic hypercarbic respiratory failure ? Likely secondary to CHF exacerbation, aortic stenosis, A-fib with RVR ? Diastolic CHF exacerbation, BNP [id number] ? With concerns for underlying silent aspiration, aspiration pneumonia, ? During last hospitalization, patient had thick mucus secretions around left bronchial tree, with complete opacification of left lung, she also has right hemidiaphragmatic elevation, -Initially in mild to moderate respiratory distress and his cardiac stepdown unit, this afternoon much more comfortable in intensive care unit ? Status post thoracocentesis, 1 L removed, so far Gram stain within normal limits, pathology pending ? Plan, ? Monitor Intensive Care Unit ?continue BiPAP during the night, scheduled during the day ? Solu-Medrol 40 mg IV every 8 hours -Lasix 40 mg IV twice daily on hold as patient looks euvolemic ? Patient has severe aortic stenosis low gradient likely also playing a role ? A-fib with RVR also playing a role, resolving ? meropenem ? Monitor respiratory status closely, ? CODE STATUS full code Lovenox for DVT prophylaxis TANJA on CKD, creatinine 1.8, monitor as on diuresis Aortic stenosis, severe low gradient, likely also playing A-fib with RVR ? Cardizem 60 every 6 hours ? 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 Acute, nondisplaced but impacted LEFT hip subcapital fracture with extension into the femoral neck. Plan ? Bedrest ? Morphine for pain control, spoke to Dr. Bay, will consult n.p.o. midnight for surgical intervention today Full code ? SCDs for DVT prophylaxis Status is stable, Plan for today, will require hip surgery, continue IV antibiotics continue steroids monitor respiratory status closely, Attestations 2 Medical Necessity Statement*: Patient requires hospitalization for acute hypoxic respiratory failure, TANJA, aortic stenosis A-fib now with left hip fracture, Diagnoses Acute on chronic diastolic congestive heart failure I50.33 Heart failure type: diastolic Acute respiratory failure with hypoxemia J96.01 Acute renal failure superimposed on chronic kidney disease, unspecified acute renal failure type, unspecified CKD stage N17.9; N18.9 Acute renal failure type: unspecified Chronic kidney disease stage: unspecified stage Chronic respiratory failure, unspecified whether with hypoxia or hypercapnia J96.10 Respiratory failure complication: unspecified whether with hypoxia or hypercapnia Nonrheumatic mitral valve regurgitation I34.0 Cardiac valve disease etiology: nonrheumatic Moderate pulmonary hypertension I27.20 Nonrheumatic aortic valve stenosis I35.0 Cardiac valve disease etiology: nonrheumatic Atrial fibrillation with rapid ventricular response I48.91 Aspiration pneumonia J69.0 Acute on chronic respiratory failure with hypoxia and hypercapnia J96.21; J96.22 Pulmonary hypertension I27.20
--- NOTE | 2023-12-05 17:04 | P.PN_ITS ---
Subjective 2 Subjective: Patient seen and examined in ICU over lunch. No acute issues overnight plan to proceed to the OR today for left hip cannulated screw fixation for valgus impacted left femoral neck fracture. Consent was reviewed and signed. Vitals/I&O/Wt Last Vital Signs Temp 98.7 F 12/05/23 12:30 Pulse 69 12/05/23 14:10 Resp 23 H 12/05/23 12:30 BP 104/75 12/05/23 12:30 Pulse Ox 93 12/05/23 12:30 O2 Del Method Nasal Cannula 12/05/23 12:30 O2 Flow Rate 3 12/05/23 09:00 FiO2 50 12/03/23 23:11 12/05/23 12/05/23 12/05/23 06:59 14:59 22:59 Intake Total 30 / 1010.000 60 / 60 Output Total 350 / 1750 Balance -320 / -740.000 60 / 60 Weight last 48 hrs Weight 199 lb 9.6 oz Weight 191 lb 4 oz Physical Exam 2 Narrative: Orthopedic specific examination: Examination left hip left lower extremity is in good length and alignment there is no evidence of shortening or external rotation. She does have discomfort with logroll examination. Unable to perform Stinchfield secondary to pain and discomfort. She has tenderness palpation of the left hip. No tenderness to palpation of the pelvic compression test. She is able to wiggle her toes of the left lower extremity plantarflex and dorsiflex ankle sensations intact light touch distally distal pulses palpable. Compartments are soft compressible normal swelling about the left hip. Urinary Catheter Management: Vázquez: Cath Placed During This Visit: yes Reason for Continuing Indwelling Catheter: Accurate Measurement of Urinary Output in Critically Ill Patients Urinary Catheter Date of Insertion: 12/02/23 Urinary Catheter Time of Insertion: 17:28 Data 12/05/23 05:03 12/05/23 05:03 Micro: Microbiology 12/03/23 Unknown Mycobacterial Smear - Preliminary Body Fluids - Pleura 12/03/23 Unknown Gram Stain - Final Pleural Fluid Body Fluid Culture - Preliminary A&P Assessment and plan (1) Fracture of femoral neck, left: Plan N.p.o. since midnight Consent reviewed and signed Plan to proceed to the OR today for left hip CRPP Patient and family understand agree with current plan. Questions answered. Attestations 2 Medical Necessity Statement*: Left hip femoral neck fracture Coding Level of Care Code Acute Code for [facility] Fwd Diagnoses Fracture of femoral neck, left S72.002A
--- NOTE | 2023-12-05 17:05 | W.PM.OPSUD ---
Surgery/Procedure H&P Update DATE OF PROCEDURE: December 05, 2023 DATE H&P PERFORMED: 12/04/23 H&P UPDATE INFORMATION: I have reviewed H&P completed within last 30 days, I have examined patient prior to procedure and No changes to prior documentation PREOP DIAGNOSIS: Left hip femoral neck fracture PRIMARY INDICATION FOR PROCEDURE: Valgus impacted left hip femoral neck fracture PLANNED PROCEDURE: Operation Date: 12/05/23 17:00 Proposed Procedures p Hip Screw(Left) - Earl Bay DO
--- NOTE | 2023-12-05 19:09 | P.ANESASSM_ITS ---
Pre-Anesthetic Assessment Height/Weight: Height 1.6 m Weight 90.537 kg Temp Pulse Resp BP Pulse Ox O2 Del Method O2 Flow Rate 98.7 F 90 24 H 116/73 95 Mechanical Ventilation 3 12/05/23 12:30 12/05/23 17:30 12/05/23 17:30 12/05/23 17:30 12/05/23 17:30 12/05/23 17:30 12/05/23 09:00 FiO2 50 12/03/23 23:11 Preop Diagnosis: Left hip femoral neck fracture Operation Date: 12/05/23 17:00 Proposed Procedures p Hip Screw(Left) - Earl [place], DO Familial anesthetic complications: none Was Beta Yuly taken within 24 hours: Yes Was Clonidine taken within 24 hours: N/A Social No alcohol and No tobacco Exam alert confused Airway Submandibular: within normal limits Cervical ROM: within normal limits Mallampati: Class II Dentition: false Pulmonary Shortness of Breath recent pneuomonia, 4LNC, rales CV/HEM Atrial Fibrillation, Hypertension, Murmur and Peripheral Vascular Disease PHTN, severe Chronic Renal Insufficiency GI Gastroesophageal Reflux Disease Metabolic Hyperlipidemia and Thyroid Disease [facility] Lower Back Pain and Osteoarthritis/DJD Anesthetic Plan ASA status: 4 Anesthesia: General Medications/Allergies Home Medications Medication Instructions Recorded Confirmed Last Taken Type calcium carbonate (Calcium 600) 600 mg PO DAILY 08/09/22 12/02/23 12/02/23 History ondansetron HCl 4 mg tablet 4 mg PO Q6H PRN nausea and 08/24/23 12/02/23 Unknown Rx vomiting #30 tabs clonidine HCl 0.1 mg tablet 0.1 mg PO BID 08/27/23 12/02/23 12/02/23 History levothyroxine 125 mcg tablet 125 mcg PO QAM 08/27/23 12/02/23 12/02/23 History metoprolol tartrate 50 mg tablet 75 mg PO BID 08/27/23 12/02/23 12/02/23 History omeprazole 40 mg capsule,delayed 40 mg PO DAILY 08/27/23 12/02/23 12/02/23 History release portable oxygen at 2L via NC #1 ea 09/20/23 12/02/23 Unknown Rx chest vest #1 ea 09/21/23 12/02/23 Unknown Rx apixaban 5 mg tablet (Eliquis) 5 mg PO Q12H 30 days #60 tabs 10/09/23 12/02/23 12/02/23 Rx lovastatin 20 mg tablet 40 mg (2 x 20 mg) PO DAILY #60 tabs 10/30/23 12/02/23 12/02/23 Rx letrozole 2.5 mg tablet 2.5 mg PO DAILY #30 tabs 11/22/23 12/02/23 12/02/23 Rx Allergies Allergy/AdvReac Type Severity Reaction Status Date / Time adhesive Allergy Intermediate ALGY-Bliste Verified 12/02/23 15:32 r clarithromycin [From Biaxin] Allergy Intermediate thrush Verified 12/02/23 15:32 Penicillins Allergy Unknown Unknown Verified 12/02/23 15:32 Current Medications Generic Name Dose Route Start Last Admin Trade Name Freq PRN Reason Stop Dose Admin Acetaminophen 650 mg 12/02/23 18:06 12/04/23 23:22 Acetaminophen 325 Mg Tablet PO 650 mg Q6H PRN Administration Mild/Mod Pain Or Temp >/= 101 Acetylcysteine 100 mg 12/03/23 14:00 12/05/23 14:37 Acetylcysteine 200 Mg/Ml Mdv 10 Ml INHALATION Not Given Q6H.RESP ABHAY Albuterol/Ipratropium 3 ml 12/02/23 20:00 12/05/23 14:37 Ipratropium-Albuterol 3 Ml Neb INHALATION Not Given Q6H.RESP ABHAY Apixaban 2.5 mg 12/02/23 18:15 12/02/23 19:17 Apixaban 5 Mg Tablet PO 2.5 mg Q12H ABHAY Administration Atorvastatin Calcium 20 mg 12/03/23 09:00 12/05/23 08:58 Atorvastatin 40 Mg Tablet PO 20 mg DAILY ABHAY Administration Diltiazem HCl 60 mg 12/03/23 00:15 12/05/23 12:34 Diltiazem 60 Mg Tablet PO 60 mg Q6H ABHAY Administration Diltiazem HCl 100 mg/ Sodium 100 mls @ 0 mls/hr 12/02/23 18:45 12/04/23 12:00 Chloride IV Infused .Q0M ABHAY Titration Protocol Per Protocol Meropenem 1,000 mg/ Sodium 50 mls @ 100 mls/hr 12/03/23 10:00 12/05/23 10:50 Chloride IV Infused Q12H ABHAY Infusion Protocol Levothyroxine Sodium 112 mcg 12/03/23 06:00 12/05/23 05:03 Levothyroxine 112 Mcg Tablet PO 112 mcg QAM ABHAY Administration Lorazepam 0.5 mg 12/04/23 23:03 12/04/23 23:23 Lorazepam 2 Mg/Ml Inj 10 Ml Mdv IVP 0.5 mg ONCE PRN Administration ANXIETY Methylprednisolone Sodium Succinate 40 mg 12/03/23 21:00 12/05/23 12:34 Methylprednisolone Sod Succ 40 Mg/Ml Inj IVP 40 mg Q8H ABHAY Administration Metoprolol Tartrate 50 mg 12/04/23 18:15 12/05/23 08:58 Metoprolol Tartrate 25 Mg Tablet PO 50 mg BID@0900,2100 ABHAY Administration Morphine Sulfate 2 mg 12/02/23 18:06 12/04/23 21:48 Morphine 4 Mg/Ml Sdv 1 Ml IVP 2 mg Q4H PRN Administration SEVERE PAIN Non-Formulary Medication 2.5 mg 12/03/23 09:00 12/05/23 08:46 Letrozole PO Not Given DAILY ABHAY Pantoprazole Sodium 40 mg 12/03/23 09:00 12/05/23 08:[address] 40 Mg Tablet PO 40 mg DAILY ABHAY Administration Sodium Chloride 4 ml 12/02/23 20:00 12/05/23 07:53 Sodium Chloride 3.5% Neb 4 Ml Neb INHALATION 4 ml BID.RESPIRATORY ABHAY Administration PFSH Anesthesia Medical History Osteoporosis Gout History of right shoulder fracture Breast cancer, left 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 Nu Hubbard [facility] Family History Sister Cancer Breast Other Family history non-contributory Suicide Denies family history of Diabetes CAD (coronary artery disease) Clotting disorder Dementia Hyperlipidemia Psychiatric illness Chronic kidney disease (CKD) Anesthesia complication Bleeding disorder Lung disease Hypertension Stroke Social History Smoking and tobacco/nicotine status: former use of tobacco/nicotine Quit status (tobacco/nicotine): has quit using Year quit tobacco: 1966 Former quit date comment: 0.25 ppd X 4 years Second hand smoke exposure: No Alcohol intake: never Substance/Drug Use: never Caregiver/support person: Yes Lives independently: Yes Household members: spouse Marital status: Current occupational status: retired Current gender identity: Female Special temi needs: No Agree to transfusion: Yes Data Anesthesia 12/05/23 05:03 12/05/23 05:03 Short CBC 12/04/23 12/05/23 Range/Units 04:11 05:03 WBC 7.00 13.36 H (3.29-11.43) 10^3/uL Hgb 10.60 L 11.80 (11.27-16.99) g/dL Hct 34.5 L 39.0 (36-47) % MCV 91.8 D 93.3 (85-98) fl Plt Count 253 253 (157-399) 10^3/cmm Neut % (Auto) 90.4 91.7 % Neut # (Auto) 6.33 12.24 H (1.8-7.7) 10^3/uL BMP 12/04/23 12/05/23 04:11 05:03 Sodium 143 140 Potassium 4.1 4.6 Chloride 103 102 Carbon Dioxide 27 28 BUN 49 H 53 H Creatinine 1.8 H 1.8 H Glucose 150 H 156 H Calcium 7.9 L 7.8 L Cardiac Enzymes 12/04/23 12/05/23 Range/Units 04:11 05:03 NT-Pro-B Natriuret Pep 6391 H 3937 H (0-450) pg/mL Liver Function 12/04/23 12/05/23 Range/Units 04:11 05:03 Total Bilirubin 0.5 0.5 (0.15-1.2) mg/dL AST 15 16 (0-32) U/L ALT 24 22 (0-33) U/L Alkaline Phosphatase 116 H 109 H (35-105) U/L Albumin 3.6 3.6 (3.5-5.2) g/dL Blood Bank 12/04/23 20:42 Blood Type A Positive Rho(D) Type Rh positive Antibody Screen Negative Coags 12/05/23 05:03 C-Reactive Protein 6.7 H ABG 12/04/23 03:29 Specimen Type Arterial Sample Site Radial, left ABG pH 7.34 L ABG pCO2 52.4 H ABG pO2 69.7 L ABG PO2/FiO2 Ratio 0 ABG HCO3 28.2 H ABG Base Excess 2.1 H O2 Delivery Device Nc O2 Liters/Min 5.0 FiO2 40.0 Microbiology 12/03/23 Unknown Mycobacterial Smear - Preliminary Body Fluids - Pleura 12/03/23 Unknown Gram Stain - Final Pleural Fluid Body Fluid Culture - Preliminary Cardiac Studies: 2 Echocardiogram 08/27/23
[2023-12-05] MEDS: clindamycin 600 MG/50 ML PREMIX 100 MG IV (21:02)
[2023-12-05] MEDS: tranexamic acid 1,000 mg/10mL SDV 1000 MG IV (21:49)
--- NOTE | 2023-12-05 22:18 | W.PM.BPON ---
Date of Procedure: [12/05/2023] Surgeon: Earl Bay DO Forestry Hunter(s): None Procedure(s) performed: Left hip closed reduction and percutaneous screw fixation Findings of the procedure(s): Patient found to have valgus impacted left hip femoral neck fracture in good alignment for close reduction and percutaneous screw fixation underwent procedure as planned without issues or complications taken to ICU in stable condition Estimated blood loss: 20 mL Specimen(s) removed: None Post-operative diagnosis: Left hip valgus impacted femoral neck fracture
--- NOTE | 2023-12-05 22:19 | PM.OP ---
Operative Report Date of procedure: December 05, 2023 Surgeon: Earl Bay DO Procedure: Preoperative diagnosis: Left hip valgus impacted femoral neck fracture: Post-op diagnosis: Same Procedure done: Left?femoral neck closed reduction and percutaneous screw fixation Implants: 6.5 mm x 85?mm fully threaded cannulated screw 6.5 mm x 85?mm partially-threaded cannulated screw 6.5 mm x 90?mm partially-threaded cannulated screw 1?masood Surgeon: Earl Bay DO Anesthesia: General Estimated blood loss: 20 mL IV fluids: 500 mL Urine output: 300?mL Complications: None Findings: See operative report narrative Condition: stable Disposition: floor Brief History: Patient is a 83-year-old female who sustained a ground-level fall had a valgus impacted left femoral neck fracture. She was initially admitted to the hospital secondary to respiratory failure. She was moving around in her room and tripped over her Vázquez tubing and subsequently sustained a valgus impacted left femoral neck fracture. She is no history of right hip hemiarthroplasty roughly 10 years ago and has done well with this. orthopedics was consulted For treatment recommendations.?Patient has been medically optimized.? We talked about treatment options given this after CT scan demonstrated an aligned anterior cortex in good alignment I feel this would be amendable for closed reduction and percutaneous screw fixation.? We talked about this in detail as far as risk benefits complication alternatives of surgery understands even potential for possible hardware failure and further surgery.? Understand risk of surgery patient and family agree to proceed with surgical intervention all questions answered. Procedure: Patient seen and evaluated?in the preoperative holding area.? Consent was reviewed and signed with patient.? Operative extremity was marked.? Patient was then seen evaluated by anesthesia once cleared for surgery patient was taken back to the operative suite.? Patient was transported onto the [place] bed after undergoing general anesthetic.? Once properly anesthetized she was then placed onto the [place] bed placed in traction boots.? All bony prominences well-padded patient was appropriate secured to the bed.? Final timeout was performed.? Patient received appropriate preoperative antibiotics as well as preoperative TXA. Prior to prepping and draping, the fractured?hip was then inspected this was found to be on the traction table to be in excellent alignment position amenable for close reduction percutaneous pinning.? At this point time the left hip was then prepped and draped in standard orthopedic fashion. I started off with small percutaneous incision after marking the center center position of the femoral neck I started with my inferior and central calcar wire.? Guidepin was then advanced along the inferior border of the neck and advanced to appropriate position into the femoral head across the fracture site.? This was confirmed in multiple orthogonal images to be in appropriate position.? Next I plan for a inverted triangle configuration as result I then subsequently placed next my superior and anterior guidepin in appropriate position and then in parallel fashion placed my posterior and superior guidepin in appropriate position.? This was confirmed to have an excellent inverted triangle positioning on AP and lateral.? I then advanced the wires to appropriate length and then subsequently measured.? I then utilized the cannulated drill bit, Drilled, measured and then subsequently advanced the fully-threaded 6.5 mm x 85?mm cannulated screw and advanced this with excellent fixation on the inferior and central calcar screw. ? Next attention turned to the?superior and anterior?pin,?I then subsequently used the cannulated drill bit And subsequently drilled,?measured and placed a partially-threaded 6.5 mm x 90?mm partially-threaded cannulated screw with a washer and had excellent fixation.?? Lastly we did the?Superior and posterior pin,?utilized the cannulated drill bit and subsequently drilled, measured and placed a partially-threaded 6.5 mm x [85]?mm partially-threaded cannulated screw.? All 3 screws had excellent fixation and were advanced appropriate depth. At the end the procedure I backed the wires out to have appropriate visualization of the tips of the screws.? I then unlocked the traction boot and took the hip through range of motion with live fluoroscopic imaging utilizing approach and withdrawal technique and no screws penetrated the joint and fracture site was stable.? This completed the procedure. Guidepins were then subsequently removed wound was then thoroughly irrigated and closed with rafael for the small percutaneous sites.? This was then covered with Silverlon dressing.? Patient was then awake from anesthesia and taken to PACU in stable condition.? Patient tolerated procedure without any issues Disposition: Patient taken to PACU in stable condition recovering well.? Will be weightbearing as tolerated?postoperatively.? Dressing on in place will be changed as needed.? DVT prophylaxis.? Pain control.? PT/OT.? Postoperative TXA. Postoperative antibiotics.?Patient will return to the floor.? Internal medicine on board as primary.?
[2023-12-05] MEDS: morphine 4 mg/mL SDV 1 mL 2 MG IVP (22:46)
--- NOTE | 2023-12-05 23:01 | XRR_ITS ---
PROCEDURE INFORMATION: Exam: XR Left Hip Exam date and time: 12/05/2023 10:30 PM Age: 83 years old Clinical indication: Injury or trauma; Fall; Blunt trauma (contusions or hematomas); Left; Hip; Prior surgery; Surgery date: Post-operative (0-2 days); Surgery type: Crpp; Additional info: S/P L hip crpp TECHNIQUE: Imaging protocol: Radiologic exam of the left hip. Views: 2 or 3 views hip with pelvis when performed. COMPARISON: CT hip LT wo con* [id number] 12/04/2023 2:47 PM FINDINGS: Bones/joints: Right hip arthroplasty changes. Left hip 3 point pinning seen in place. Soft tissues: Unremarkable. XR/XR hip LT 2-3V wo/w pel* [id number] IMPRESSION: 1. Negative for acute bony abnormality. 2. Right hip arthroplasty changes. 3. Left hip 3 point [address] seen in place.
[2023-12-06] VITALS (66 sets, daily range): BP systolic 63–124; BP diastolic 48–82; PULSE 62–115; RESP 14–38; TEMP 36.2–36.9; O2SAT 84–100; BMI 35.3
[2023-12-06] MEDS: ipratropium-albuterol 3 mL Neb INHALATION ×2 (02:27→20:05)
[2023-12-06] MEDS: acetylcysteine 200 mg/mL MDV 10 mL 100 MG INHALATION (02:27)
[2023-12-06 04:00] LABS: Basophils % 0.1 %; Hematocrit 34.7 % (36-47); Lymphocytes # 0.4 10^3/uL (0.8-4.8); Lymphocytes % 3.8 %; Mean Corpuscular HGB Conc 29.7 g/dL (30-55); Mean Corpuscular Hemoglobin 27.7 pg (27-33); Mean Corpuscular Volume 93.3 fl (85-98); Mean Platelet Volume 10.2 fL (7.4-10.4); Monocytes # 0.6 10^3/uL (0.2-0.9); Monocytes % 5.5 %; Neutrophils # 10.33 10^3/uL (1.8-7.7); Neutrophils % 89.8 %; Nucleated Red Blood Cells % 0.3 %; Platelet Count 243 10^3/cmm (157-399); Red Blood Count 3.72 10^6/uL (3.85-5.65); Red Cell Distribution Width 15.5 % (12.1-15.1)
[2023-12-06 04:27] LABS: Alanine Aminotransferase 16 U/L (0-33); Albumin Level 3.3 g/dL (3.5-5.2); Alkaline Phosphatase 90 U/L (35-105); Anion Gap 14.8 (5-19); Aspartate Amino Transferase 12 U/L (0-32); Blood Urea Nitrogen 61 mg/dL (8-23); Calcium 7.4 mg/dL (8.5-10.5); Carbon Dioxide 29 mmol/L (22-29); Chloride 104 mmol/L (98-107); Creatinine Clr Calc Pharmacy 27.7197; Globulin 2.1 g/dL (1.3-4.6); Glucose 127 mg/dL (65-115); Magnesium 2.2 mg/dL (1.7-2.3); Osmolality Calculated 315 mOsm/kg (285-295); Phosphorus 4.6 mg/dL (2.5-4.5); Potassium 4.8 mmol/L (3.5-5.1); Sodium 143 mmol/L (136-145); Total Bilirubin 0.5 mg/dL (0.15-1.2); Total Protein 5.4 g/dL (6.6-8.7)
[2023-12-06 04:37] LABS: C Reactive Protein 3.5 mg/L (0.0-4.9); NT Pro B Type Natriuretic Pept 4413 pg/mL (0-450)
[2023-12-06] MEDS: methylPREDNISolone sod succ 40 mg/mL INJ IVP (05:19)
[2023-12-06] MEDS: apixaban 5 mg Tablet 2.5 MG PO ×2 (05:19→17:15)
[2023-12-06] MEDS: levothyroxine 112 mcg Tablet PO (05:20)
--- NOTE | 2023-12-06 05:31 | PC.NURSE ---
Cardizem PO could not be given since their blood pressure was soft with MAP in the low 60s. Dr. Cano was notified and he said that is fine.
--- NOTE | 2023-12-06 07:00 | XRR_ITS ---
PROCEDURE INFORMATION: Exam: XR Chest Exam date and time: 12/06/2023 6:23 AM Age: 83 years old Clinical indication: Shortness of breath; Additional info: SOB TECHNIQUE: Imaging protocol: Radiologic exam of the chest. Views: 1 view. COMPARISON: CR XR chest 1V portable [id number] 12/04/2023 6:13 AM FINDINGS: Tubes, catheters and devices: Evidence of neurostimulator thoracic spine similar to prior study. Lungs: Persistent opacity, infiltrate, atelectasis, and/or crowding right lung slightly increased. Opacities left lung base similar to prior study allowing for differences in degree of inspiration. Pleural spaces: Slight decreased blunting right lateral costophrenic angle. No large or obvious pleural effusion seen. No large or obvious pneumothorax seen. Heart/Mediastinum: Heart size appears grossly stable. Diaphragm: Evidence of persistent elevation right hemidiaphragm similar to 12/04/2023. Bones/joints: Deformity proximal right humerus similar to prior study. Dense vertebra, ivory vertebra thoracic spine similar to prior study. Soft tissues: Clips project over left chest wall/left axilla. Other findings: Patient appears rotated slightly to the right. XR/XR chest 1V portable [id number] IMPRESSION: 1. Persistent opacity, infiltrate, atelectasis, and/or crowding right lung slightly increased compared to 12/04/2023. 2. Opacities left lung base similar to prior study allowing for differences in degree of inspiration. 3. Decreased blunting right costophrenic angle. No large or obvious pleural effusion seen. 4. Evidence of persistent elevation right hemidiaphragm.
[2023-12-06] MEDS: pantoprazole DR 40 mg Tablet PO (08:36)
[2023-12-06] MEDS: metoprolol tartrate 25 mg Tablet 50 MG PO ×2 (08:36→20:34)
[2023-12-06] MEDS: atorvastatin 40 mg Tablet 20 MG PO (08:36)
--- NOTE | 2023-12-06 08:55 | ANE.PACU2 ---
Inpatient post-anesthesia follow up: Airway intact: Yes Vital signs: Temperature 97.3 F Pulse Rate 97 Respiratory Rate 18 Blood Pressure 88/55 Pulse Oximetry 84 Oxygen Delivery Me thod Room Air Oxygen Flow Rate 4 Fraction of Inspir ed Oxygen 40 Hydration adequate: Yes Nausea and vomiting: No Pain level: 2 Mental status: Baseline
[2023-12-06] MEDS: meropenem 1,000 MG in sodium chloride 0.9% (plus) 50 ML 100 MG IV ×2 (09:30→21:30)
[2023-12-06] MEDS: morphine 4 mg/mL SDV 1 mL 2 MG IVP ×2 (10:18→14:09)
[2023-12-06 12:59] LABS: Amylase, Pleural Fluid 35 U/L
[2023-12-06] MEDS: dilTIAZem 60 mg Tablet PO ×2 (13:23→17:15)
--- NOTE | 2023-12-06 13:50 | P.PN_ITS ---
Subjective 2 Subjective: Patient was seen this morning, she is currently sitting up in a chair, alert to person to place, not to time she can follow commands, her hip pain is well- controlled, she has ambulated with nursing staff, has a gait belt around her, advised of ambulating under supervision, her increased risk of falls, she voices understanding, all questions answered, she is resting comfortably on 4 L, I discussed in detail her compliance with dysphagia level 4 diet, due to high risk of aspiration, discussed moving her to [facility] today I again implored her to ambulate under supervision, she has increased risk of falls, she voices understanding, Vitals/I&O/Wt Last Vital Signs Temp 98.1 F 12/06/23 13:15 Pulse 102 H 12/06/23 13:15 Resp 18 12/06/23 13:15 BP 101/61 12/06/23 13:15 Pulse Ox 98 12/06/23 13:15 O2 Del Method Nasal Cannula 12/06/23 13:15 O2 Flow Rate 4 12/06/23 13:15 FiO2 40 12/06/23 04:00 12/05/23 12/06/23 12/06/23 22:59 06:59 14:59 Intake Total 600 / 660 300 / 300 Output Total 570 / 570 225 / 795 Balance 30 / 90 -225 / -135 300 / 300 Weight last 48 hrs Weight 90.52 kg Weight 90.537 kg Physical Exam 2 Const: COMMON NORMALS: no acute distress and patient oriented x3 Resp: COMMON NORMALS: normal respiratory effort, No retractions, No use of accessory muscles and clear to auscultation bilaterally AUSCULTATION: clear to auscultation bilaterally Cardio: COMMON NORMALS: regular rate, regular rhythm, S1 normal heart sound present and S2 normal heart sound present RATE: regular rate RHYTHM: r egular rhythm HEART SOUNDS: S1 normal heart sound present and S2 normal heart sound present GI: COMMON NORMALS: Normal to inspection, nondistended, normoactive bowel sounds present and non-tender Back/Pelvis: OTHER: Surgical site looks clean and dry, Extremity: COMMON NORMALS: no pedal edema Neuro: COMMON NORMALS: patient oriented x3 Psych: COMMON NORMALS: mental status grossly normal Urinary Catheter Management: Vázquez: Cath Placed During This Visit: yes Reason for Continuing Indwelling Catheter: Accurate Measurement of Urinary Output in Critically Ill Patients Urinary Catheter Date of Insertion: 12/02/23 Urinary Catheter Time of Insertion: 17:28 Data 12/06/23 03:26 12/06/23 03:26 Micro: Microbiology 12/03/23 Unknown Mycobacterial Smear - Preliminary Body Fluids - Pleura 12/03/23 Unknown Gram Stain - Final Pleural Fluid Body Fluid Culture - Preliminary A&P Assessment and plan (1) Acute exacerbation of CHF (congestive heart failure): Qualifiers: Heart failure type: diastolic Qualified Code(s): I50.33 - Acute on chronic diastolic (congestive) heart failure (2) Acute respiratory failure with hypoxemia: (3) Acute on chronic kidney failure: Qualifiers: Acute renal failure type: unspecified Chronic kidney disease stage: u nspecified stage Qualified Code(s): N17.9 - Acute kidney failure, unspecified; N18.9 - Chronic kidney disease, unspecified (4) Chronic respiratory failure: Qualifiers: Respiratory failure complication: unspecified whether with hypoxia or hypercapnia Qualified Code(s): J96.10 - Chronic respiratory failure, unspecified whether with hypoxia or hypercapnia (5) Mitral regurgitation: Qualifiers: Cardiac valve disease etiology: nonrheumatic Qualified Code(s): I34.0 - Nonrheumatic mitral (valve) insufficiency (6) Moderate pulmonary hypertension: (7) Aortic stenosis: Qualifiers: Cardiac valve disease etiology: nonrheumatic Qualified Code(s): I35.0 - Nonrheumatic aortic (valve) stenosis (8) Atrial fibrillation with rapid ventricular response: (9) Aspiration pneumonia: (10) Acute on chronic respiratory failure with hypoxia and hypercapnia: (11) Pulmonary hypertension: Plan Acute hypoxic hypercarbic respiratory failure ? Likely secondary to CHF exacerbation, aortic stenosis, A-fib with RVR ? Diastolic CHF exacerbation, BNP [id number], resolving ? With concerns for underlying silent aspiration, aspiration pneumonia, resolving ? During last hospitalization, patient had thick mucus secretions around left bronchial tree, with complete opacification of left lung, she also has right hemidiaphragmatic elevation, -Initially in mild to moderate respiratory distress and his cardiac stepdown unit, this afternoon much more comfortable in intensive care unit ? Status post thoracocentesis, 1 L removed, so far Gram stain within normal limits, pathology pending ? Plan, ? Moved to medical floors ?continue BiPAP during the night, scheduled during the day ? De-escalate to prednisone -Lasix 40 mg IV twice daily on hold as patient looks euvolemic ? Patient has severe aortic stenosis low gradient likely also playing a role ? A-fib with RVR also playing a role, resolving ? meropenem ? Monitor respiratory status closely, ? CODE STATUS full code Lovenox for DVT prophylaxis TANJA on CKD, creatinine 1.7, monitor as on diuresis Aortic stenosis, severe low gradient, likely also playing A-fib with RVR ? Cardizem 60 every 6 hours ? 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 Acute, nondisplaced but impacted LEFT hip subcapital fracture with extension into the femoral neck. ? Status post Left hip closed reduction and percutaneous screw fixation Plan ? pt/ot ? Morphine for pain control Full code ? SCDs for DVT prophylaxis, eliquis Status is stable, Plan for today, will moved to medical floors, continue antibiotics, de-escalate steroids, hold off on diuresis, Attestations 2 Medical Necessity Statement*: Patient requires hospitalization for respiratory failure, TANJA, left hip fracture Diagnoses Acute on chronic diastolic congestive heart failure I50.33 Heart failure type: diastolic Acute respiratory failure with hypoxemia J96.01 Acute renal failure superimposed on chronic kidney disease, unspecified acute renal failure type, unspecified CKD stage N17.9; N18.9 Acute renal failure type: unspecified Chronic kidney disease stage: unspecified stage Chronic respiratory failure, unspecified whether with hypoxia or hypercapnia J96.10 Respiratory failure complication: unspecified whether with hypoxia or hypercapnia Nonrheumatic mitral valve regurgitation I34.0 Cardiac valve disease etiology: nonrheumatic Moderate pulmonary hypertension I27.20 Nonrheumatic aortic valve stenosis I35.0 Cardiac valve disease etiology: nonrheumatic Atrial fibrillation with rapid ventricular response I48.91 Aspiration pneumonia J69.0 Acute on chronic respiratory failure with hypoxia and hypercapnia J96.21; J96.22 Pulmonary hypertension I27.20
[2023-12-06] MEDS: acetaminophen 325 mg Tablet 650 MG PO (17:14)
--- NOTE | 2023-12-06 18:23 | PC.NURSE ---
Shift summary: Pt remains alert and oriented. one on one sitter remained at bedside today. No attempts to get out of be by herself noted this shift. She is using 4lpm/NC oxygen. She remains in Afib. She has been out of bed twice this shift, once to chair for breakfast and the second time up with PT ambulated with walker and now is sitting in chair. She does complain of pain to her left hip. At first she refused morphine for the pain, she stated she did not want to get goofy again like she was. Education on pain relief, pain medication helping the healing process provided. She has had Morphine x 2 and acetaminophen x1 this shift. Ice also applied at regular intervals for her comfort. Her diet was changed back to Dysphagia level 4 with mildly thickened liquids, as she has aspirated before. Patient is not impressed with her new diet, but she has been willing to eat a few bites. NO Bm noted this shift. 375ml urine out out.
[2023-12-06] MEDS: ondansetron 4 MG Tablet PO (18:37)
--- NOTE | 2023-12-06 20:36 | P.PN_ITS ---
Subjective 2 Subjective: Patient seen and examined this evening no acute issues overnight. Pain controlled. Dressing on in place clean dry and intact Vitals/I&O/Wt Last Vital Signs Temp 98.1 F 12/06/23 13:15 Pulse 93 12/06/23 20:08 Resp 19 H 12/06/23 20:08 BP 120/79 12/06/23 16:00 Pulse Ox 94 12/06/23 20:08 O2 Del Method Nasal Cannula 12/06/23 20:08 O2 Flow Rate 5 12/06/23 20:08 FiO2 40 12/06/23 04:00 12/06/23 12/06/23 12/06/23 06:59 14:59 22:59 Intake Total 550 / 550 120 / 670 Output Total 225 / 795 375 / 375 Balance -225 / -135 550 / 550 -255 / 295 Weight last 48 hrs Weight 199 lb 9 oz Weight 199 lb 9.6 oz Physical Exam 2 Narrative: Examination of left hip normal postoperative swelling bandage on in place clean dry and intact patient is able to wiggle toes plantarflex and dorsiflex ankle able to tolerate logroll examination. Distal pulses palpable. Compartment soft and compressible. Urinary Catheter Management: Vázquez: Cath Placed During This Visit: yes Reason for Continuing Indwelling Catheter: Accurate Measurement of Urinary Output in Critically Ill Patients Urinary Catheter Date of Insertion: 12/02/23 Urinary Catheter Time of Insertion: 17:28 Data 12/07/23 04:15 12/07/23 04:15 Micro: Microbiology 12/03/23 Unknown Gram Stain - Final Pleural Fluid Body Fluid Culture - Preliminary 12/03/23 Unknown Mycobacterial Smear - Preliminary Body Fluids - Pleura Xray Ortho: Radiologist's impression: XR/XR hip LT 2-3V wo/w pel* [id number] IMPRESSION: 1. Negative for acute bony abnormality. 2. Right hip arthroplasty changes. 3. Left hip 3 point pinning seen in place. A&P Assessment and plan (1) Fracture of femoral neck, left: Plan Weight-bear as tolerated left lower extremity dressing change as needed DVT prophylaxis Pain control Hospitalist on board as primary Postoperative x-rays reviewed stable CRPP left hip PT/OT Orthopedics will continue to follow Attestations 2 Medical Necessity Statement*: Ongoing care status post left hip fracture CRPP Coding Level of Care Code Acute Code for Chg Fwd Diagnoses Fracture of femoral neck, left S72.002A
--- NOTE | 2023-12-06 20:45 | PC.NURSE ---
Dr. Visit Dr. Bay to bedside, patient assessed, no new orders given.
[2023-12-07] VITALS (17 sets, daily range): BP systolic 91–127; BP diastolic 57–94; PULSE 62–101; RESP 15–28; TEMP 36.3–36.7; O2SAT 92–100
[2023-12-07] MEDS: dilTIAZem 60 mg Tablet PO ×2 (00:02→05:25)
[2023-12-07] MEDS: ipratropium-albuterol 3 mL Neb INHALATION ×4 (02:12→20:36)
[2023-12-07 04:33] LABS: Basophils % 0.1 %; Hematocrit 36.1 % (36-47); Lymphocytes # 0.5 10^3/uL (0.8-4.8); Lymphocytes % 4.8 %; Mean Corpuscular HGB Conc 29.1 g/dL (30-55); Mean Corpuscular Hemoglobin 27.4 pg (27-33); Mean Corpuscular Volume 94.3 fl (85-98); Monocytes # 0.8 10^3/uL (0.2-0.9); Monocytes % 7.8 %; Neutrophils # 8.68 10^3/uL (1.8-7.7); Neutrophils % 86.9 %; Nucleated Red Blood Cells % 0.4 %; Platelet Count 234 10^3/cmm (157-399); Red Blood Count 3.83 10^6/uL (3.85-5.65); Red Cell Distribution Width 15.5 % (12.1-15.1); White Blood Count 9.99 10^3/uL (3.29-11.43)
[2023-12-07 04:59] LABS: C Reactive Protein 3.1 mg/L (0.0-4.9)
[2023-12-07 05:00] LABS: Alanine Aminotransferase 23 U/L (0-33); Albumin Level 3.5 g/dL (3.5-5.2); Alkaline Phosphatase 89 U/L (35-105); Anion Gap 12.2 (5-19); Aspartate Amino Transferase 24 U/L (0-32); Blood Urea Nitrogen 64 mg/dL (8-23); Calcium 7.9 mg/dL (8.5-10.5); Carbon Dioxide 32 mmol/L (22-29); Chloride 103 mmol/L (98-107); Creatinine Clr Calc Pharmacy 27.7169; Globulin 2.3 g/dL (1.3-4.6); Glucose 136 mg/dL (65-115); Magnesium 2.5 mg/dL (1.7-2.3); Osmolality Calculated 314 mOsm/kg (285-295); Phosphorus 4.8 mg/dL (2.5-4.5); Potassium 5.2 mmol/L (3.5-5.1); Sodium 142 mmol/L (136-145); Total Bilirubin 0.5 mg/dL (0.15-1.2); Total Protein 5.8 g/dL (6.6-8.7)
[2023-12-07 05:12] LABS: NT Pro B Type Natriuretic Pept 4904 pg/mL (0-450)
[2023-12-07] MEDS: apixaban 5 mg Tablet 2.5 MG PO ×2 (05:25→17:55)
[2023-12-07] MEDS: levothyroxine 112 mcg Tablet PO (05:25)
--- NOTE | 2023-12-07 05:43 | PC.NURSE ---
Report given to Mary De La Rosa RN. AM medications given. Patient states that she does not want us to call her and let him know her new room number. Transferred to room 269 via bed.
[2023-12-07] MEDS: atorvastatin 40 mg Tablet 20 MG PO (08:12)
[2023-12-07] MEDS: pantoprazole DR 40 mg Tablet PO (08:13)
[2023-12-07] MEDS: predniSONE 20 mg Tablet 40 MG PO (08:13)
[2023-12-07] MEDS: meropenem 1,000 MG in sodium chloride 0.9% (plus) 50 ML 100 MG IV ×2 (09:43→21:08)
--- NOTE | 2023-12-07 09:59 | PC.SOCIAL ---
IMM Update Pg 2 of IMM Updated and reviewed with patient who verbalized understanding. Copy provided.
--- NOTE | 2023-12-07 10:01 | ECG_ITS ---
[facility] Test Date: 2023-12-07 Pat Name: Kelley Quezada Department: Room: 269 Gender: Female Learning Designer: : 1940 Requested By: Dilan Rivero Order Number: [id number] Yosef MD: Mian Rose M.D. Measurements Intervals [place] Rate: 44 P: 0 MT: 0 QRS: 6 QRSD: 97 T: 5 QT: 462 QTc: 397 Interpretive Statements ATRIAL FIBRILLATION WITH SLOW VENTRICULAR RESPONSE Compared to ECG 12/03/2023 17:00:53 T-wave abnormality no longer present Electronically Signed On 12-07-2023 17:07:40 CDT by Mian Rose M.D. [id number]
--- NOTE | 2023-12-07 12:13 | ECG_ITS ---
[facility] Test Date: 2023-12-07 Pat Name: Kelley Quezada Department: Room: 269 Gender: Female Nurse Wound Care: : 1940 Requested By: Dilan Rivero Order Number: [id number] Yosef MD: Mian Rose M.D. Measurements Intervals [place] Rate: 53 P: 0 W[place]: 0 QRS: 7 QRSD: 98 T: 6 QT: 446 QTc: 422 Interpretive Statements ATRIAL FIBRILLATION WITH SLOW VENTRICULAR RESPONSE Compared to ECG 12/07/2023 10:08:35 No significant changes Electronically Signed On 12-07-2023 17:07:00 CDT by Mian Rose M.D. [id number]
[2023-12-07] MEDS: TRAMadol 50 mg Tablet 25 MG PO (12:26)
[2023-12-07 12:45] LABS: Troponin(5th) Baseline 36 ng/L (0-10)
--- NOTE | 2023-12-07 13:27 | P.PN_ITS ---
Subjective 2 Subjective: - Patient was seen this morning ? She was seen up to the side of bed with physical therapy, heart rates in the 40s to 50s, she is alert oriented x 3, blood pressures 90s over 40s she tells me she does not feel well, does report feeling lightheaded, no dizziness, no syncope no presyncope no chest pain no shortness of breath ? We discussed watching her here in the hospital, continue to monitor blood pressures or heart rates, I ordered an EKG, had nursing staff get her back into bed, ? She also has not been using her pain medications as she is worried that the pain medications will make her loopy she does not really want to use morphine, all she wants uses Tylenol ? Patient was reexamined early in the afternoon, she is alert oriented x 3, following all commands, at bedside, she tells me that her shoulder is hurting her, but the pain is now more controlled, after taking Tylenol, we discussed adequate pain control in order for her to tolerate physical therapy, and to rest thereafter she does not want to use oxycodone or hydrocodone and she is very hesitant about using morphine we talked about using tramadol, using it sparingly for the purpose of optimizing her activity and her success with physical therapy, she voiced understanding, She is frustrated about her slow clinical progress, she is frustrated about her heart rates, as a keep fluctuating, she is wondering if we need to consult cardiology, she tells me that either her heart rates are too fast or too slow and we can get it right, she tells me that 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 We discussed continue to hold Cardizem, metoprolol, as she is in A-fib with slow ventricular response, no bundle branch block, she does not appear to be in respiratory distress, no nasal flaring or intercostal retractions she is on 4 L, blood pressures have improved to 100/64, pulse is 70s currently ? She is also frustrated about being on this dysphagia diet I have ordered dysphagia level 4 diet, due to high risk of aspiration, as her respiratory status is improved, she does not appear to be in respiratory distress, her lungs are clear to auscultation bilaterally, I am going to advance her diet to a level 6 diet with regular liquids, Vitals/I&O/Wt Last Vital Signs Temp 97.8 F 12/07/23 11:47 Pulse 70 12/07/23 13:21 Resp 16 12/07/23 13:16 BP 100/64 12/07/23 11:47 Pulse Ox 93 12/07/23 13:16 O2 Del Method Nasal Cannula 12/07/23 13:16 O2 Flow Rate 4 12/07/23 13:16 FiO2 40 12/06/23 04:00 12/06/23 12/07/23 12/07/23 22:59 06:59 14:59 Intake Total 270 / 820 100 / 920 170 / 170 Output Total 375 / 375 450 / 825 100 / 100 Balance -105 / 445 -350 / 95 70 / 70 Weight last 48 hrs Weight 90.265 kg Weight 90.52 kg Physical Exam 2 Const: COMMON NORMALS: no acute distress and patient oriented x3 Resp: COMMON NORMALS: normal respiratory effort, No retractions, No use of accessory muscles and clear to auscultation bilaterally AUSCULTATION: clear to auscultation bilaterally Cardio: COMMON NORMALS: S1 normal heart sound present and S2 normal heart sound present RATE: bradycardic RHYTHM: abnormal rhythm HEART SOUNDS: S 1 normal heart sound present and S2 normal heart sound present GI: COMMON NORMALS: Normal to inspection, nondistended, normoactive bowel sounds present and non-tender Extremity: COMMON NORMALS: no pedal edema Neuro: COMMON NORMALS: patient oriented x3, CN's II-XII intact bilaterally and moves all extremities Psych: COMMON NORMALS: mental status grossly normal Urinary Catheter Management: Vázquez: Cath Placed During This Visit: yes Reason for Continuing Indwelling Catheter: Accurate Measurement of Urinary Output in Critically Ill Patients Urinary Catheter Date of Insertion: 12/02/23 Urinary Catheter Time of Insertion: 17:28 Data 12/07/23 04:15 12/07/23 04:15 Micro: Microbiology 12/03/23 Unknown Gram Stain - Final Pleural Fluid Body Fluid Culture - Preliminary A&P Assessment and plan (1) Acute exacerbation of CHF (congestive heart failure): Qualifiers: Heart failure type: diastolic Qualified Code(s): I50.33 - Acute on chronic diastolic (congestive) heart failure (2) Acute respiratory failure with hypoxemia: (3) Acute on chronic kidney failure: Qualifiers: Acute renal failure type: unspecified Chronic kidney disease stage: u nspecified stage Qualified Code(s): N17.9 - Acute kidney failure, unspecified; N18.9 - Chronic kidney disease, unspecified (4) Chronic respiratory failure: Qualifiers: Respiratory failure complication: unspecified whether with hypoxia or hypercapnia Qualified Code(s): J96.10 - Chronic respiratory failure, unspecified whether with hypoxia or hypercapnia (5) Mitral regurgitation: Qualifiers: Cardiac valve disease etiology: nonrheumatic Qualified Code(s): I34.0 - Nonrheumatic mitral (valve) insufficiency (6) Moderate pulmonary hypertension: (7) Aortic stenosis: Qualifiers: Cardiac valve disease etiology: nonrheumatic Qualified Code(s): I35.0 - Nonrheumatic aortic (valve) stenosis (8) Atrial fibrillation with rapid ventricular response: (9) Aspiration pneumonia: (10) Acute on chronic respiratory failure with hypoxia and hypercapnia: (11) Pulmonary hypertension: Plan Acute hypoxic hypercarbic respiratory failure ? Likely secondary to CHF exacerbation, aortic stenosis, A-fib with RVR ? Diastolic CHF exacerbation, BNP 12017, resolving ? With concerns for underlying silent aspiration, aspiration pneumonia, resolving ? During last hospitalization, patient had thick mucus secretions around left bronchial tree, with complete opacification of left lung, she also has right hemidiaphragmatic elevation, -Initially in mild to moderate respiratory distress and his cardiac stepdown unit, this afternoon much more comfortable in intensive care unit ? Status post thoracocentesis, 1 L removed, so far Gram stain within normal limits, pathology pending ? Plan, ? Moved to medical floors ?continue BiPAP during the night, scheduled during the day ? De-escalate to prednisone -Lasix 40 mg IV twice daily on hold as patient looks euvolemic ? Patient has severe aortic stenosis low gradient likely also playing a role ? A-fib with RVR also playing a role, resolving ? meropenem, will de-escalate to Augmentin in the next 24 to 48 hours ? Monitor respiratory status closely, ? CODE STATUS full code Lovenox for DVT prophylaxis TANJA on CKD, creatinine 1.7, Aortic stenosis, severe low gradient, likely also playing A-fib with RVR, now with tachybradycardia syndrome, hypotension ? Cardizem and metoprolol currently on hold ? 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 Acute, nondisplaced but impacted LEFT hip subcapital fracture with extension into the femoral neck. ? Status post Left hip closed reduction and percutaneous screw fixation Plan ? pt/ot ? Ultram for pain control Full code ? SCDs for DVT prophylaxis, eliquis Status is stable, Plan for today, consult cardiology, monitor heart rates, monitor blood pressure serial EKGs, continue meropenem, continue p.o. steroids, hold off on diuresis due to soft blood pressure, tachybradycardia syndrome, spoke to cardiology, will consult spoke to nursing staff, spoke to patient spoke to at bedside Attestations 2 Medical Necessity Statement*: Patient requires hospitalization for acute hypoxic respiratory failure, TANJA, aspiration pneumonia aspiration pneumonitis, left hip fracture, A-fib now with tachybradycardia syndrome, TANJA Diagnoses Acute on chronic diastolic congestive heart failure I50.33 Heart failure type: diastolic Acute respiratory failure with hypoxemia J96.01 Acute renal failure superimposed on chronic kidney disease, unspecified acute renal failure type, unspecified CKD stage N17.9; N18.9 Acute renal failure type: unspecified Chronic kidney disease stage: unspecified stage Chronic respiratory failure, unspecified whether with hypoxia or hypercapnia J96.10 Respiratory failure complication: unspecified whether with hypoxia or hypercapnia Nonrheumatic mitral valve regurgitation I34.0 Cardiac valve disease etiology: nonrheumatic Moderate pulmonary hypertension I27.20 Nonrheumatic aortic valve stenosis I35.0 Cardiac valve disease etiology: nonrheumatic Atrial fibrillation with rapid ventricular response I48.91 Aspiration pneumonia J69.0 Acute on chronic respiratory failure with hypoxia and hypercapnia J96.21; J96.22 Pulmonary hypertension I27.20
--- NOTE | 2023-12-07 14:34 | P.PN_ITS ---
Subjective 2 Subjective: Patient seen and examined this morning she is recovering well. Working with therapy. Stable from orthopedic standpoint. Vitals/I&O/Wt Last Vital Signs Temp 97.8 F 12/07/23 11:47 Pulse 70 12/07/23 13:21 Resp 16 12/07/23 13:16 BP 100/64 12/07/23 11:47 Pulse Ox 93 12/07/23 13:16 O2 Del Method Nasal Cannula 12/07/23 13:16 O2 Flow Rate 4 12/07/23 13:16 FiO2 40 12/06/23 04:00 12/06/23 12/07/23 12/07/23 22:59 06:59 14:59 Intake Total 270 / 820 100 / 920 170 / 170 Output Total 375 / 375 450 / 825 100 / 100 Balance -105 / 445 -350 / 95 70 / 70 Weight last 48 hrs Weight 199 lb Weight 199 lb 9 oz Physical Exam 2 Narrative: Examination of left hip normal postoperative swelling bandage on in place, dressing changed today mild bloody saturation noted on bandage new Silverlon applied. patient is able to wiggle toes plantarflex and dorsiflex ankle able to tolerate logroll examination. Distal pulses palpable. Compartment soft and compressible. Urinary Catheter Management: Vázquez: Cath Placed During This Visit: yes Reason for Continuing Indwelling Catheter: Accurate Measurement of Urinary Output in Critically Ill Patients Urinary Catheter Date of Insertion: 12/02/23 Urinary Catheter Time of Insertion: 17:28 Data 12/07/23 04:15 12/07/23 04:15 Micro: Microbiology 12/03/23 Unknown Gram Stain - Final Pleural Fluid Body Fluid Culture - Final A&P Assessment and plan (1) Fracture of femoral neck, left: Plan Weight-bear as tolerated left lower extremity dressing change as needed DVT prophylaxis Pain control Hospitalist on board as primary Postoperative x-rays reviewed stable CRPP left hip PT/OT Dressing changed today. Stable from orthopedic standpoint. Orthopedic surgery team will sign off patient at this time follow peripherally if there is any questions pertaining to patient's care for her to contact orthopedics on-call. Patient to follow-up with orthopedics in 2 weeks. Appropriate discharge instructions placed in chart would recommend resuming home Eliquis for DVT prophylaxis as well as pain medication postoperatively. Follow-up in 2 weeks Attestations 2 Medical Necessity Statement*: Ongoing care left hip fracture status post CRPP Coding Level of Care Code Acute Code for Chg Fwd Diagnoses Fracture of femoral neck, left S72.002A Time Spent (min) 20
[2023-12-07 14:35] LABS: Troponin 5 2HR 36.22 ng/L (0-10); Troponin 5 2HR Delta 0.22 ABS# (0-10)
[2023-12-07 18:47] LABS: Troponin 5 6HR 32.11 ng/L (0-10)
[2023-12-07 18:49] LABS: Troponin 5 6HR Delta -3.89 ng/L (0-12)
[2023-12-08] VITALS (16 sets, daily range): BP systolic 110–146; BP diastolic 71–90; PULSE 88–123; RESP 15–19; TEMP 36.4–36.8; O2SAT 91–98
[2023-12-08] MEDS: ipratropium-albuterol 3 mL Neb INHALATION ×4 (02:50→20:40)
[2023-12-08 04:02] LABS: Basophils % 0.1 %; Hematocrit 34.3 % (36-47); Lymphocytes # 0.6 10^3/uL (0.8-4.8); Lymphocytes % 5.9 %; Mean Corpuscular HGB Conc 29.4 g/dL (30-55); Mean Corpuscular Hemoglobin 27.6 pg (27-33); Mean Corpuscular Volume 93.7 fl (85-98); Mean Platelet Volume 11.2 fL (7.4-10.4); Monocytes # 0.6 10^3/uL (0.2-0.9); Monocytes % 5.8 %; Neutrophils # 8.64 10^3/uL (1.8-7.7); Neutrophils % 87.5 %; Nucleated Red Blood Cells % 0.2 %; Platelet Count 225 10^3/cmm (157-399); Red Blood Count 3.66 10^6/uL (3.85-5.65); Red Cell Distribution Width 15.5 % (12.1-15.1); White Blood Count 9.87 10^3/uL (3.29-11.43)
[2023-12-08 04:21] LABS: Alanine Aminotransferase 30 U/L (0-33); Albumin Level 3.3 g/dL (3.5-5.2); Alkaline Phosphatase 84 U/L (35-105); Anion Gap 15.6 (5-19); Aspartate Amino Transferase 30 U/L (0-32); Blood Urea Nitrogen 72 mg/dL (8-23); Calcium 7.8 mg/dL (8.5-10.5); Carbon Dioxide 29 mmol/L (22-29); Chloride 104 mmol/L (98-107); Creatinine Clr Calc Pharmacy 24.7619; Globulin 1.9 g/dL (1.3-4.6); Glucose 133 mg/dL (65-115); Magnesium 2.6 mg/dL (1.7-2.3); Osmolality Calculated 319 mOsm/kg (285-295); Phosphorus 4.4 mg/dL (2.5-4.5); Potassium 5.6 mmol/L (3.5-5.1); Sodium 143 mmol/L (136-145); Total Bilirubin 0.5 mg/dL (0.15-1.2); Total Protein 5.2 g/dL (6.6-8.7)
[2023-12-08 04:45] LABS: NT Pro B Type Natriuretic Pept 5669 pg/mL (0-450)
[2023-12-08] MEDS: levothyroxine 112 mcg Tablet PO (05:19)
[2023-12-08] MEDS: apixaban 5 mg Tablet 2.5 MG PO ×2 (05:19→17:42)
--- NOTE | 2023-12-08 08:16 | XRR_ITS ---
PROCEDURE INFORMATION: Exam: XR Chest Exam date and time: 12/08/2023 8:22 AM Age: 83 years old Clinical indication: Shortness of breath; Patient HX: SOB TECHNIQUE: Imaging protocol: Radiologic exam of the chest. Views: 1 view. COMPARISON: CR XR chest 1V portable [id number] 12/06/2023 6:23 AM FINDINGS: Tubes, catheters and devices: Patient has a percutaneous nerve stimulator in place with the probes projecting in the midthoracic area. There is sclerosis involving a midthoracic vertebral body versus previous vertebroplasty. Lungs: There is a calcified granuloma in the right lung. Pleural spaces: Unremarkable. No pleural effusion. No pneumothorax. Heart/Mediastinum: The heart size is within normal limits. Diaphragm: There is elevation of the right hemidiaphragm versus dense consolidation of the right lung base. There is persistent strandy atelectasis/infiltrate in the left lung base. Bones/joints: There is an old fracture deformity involving the proximal right humerus Soft tissues: There are surgical rafael in the left chest wall. XR/XR chest 1V portable [id number] IMPRESSION: 1. Either persistent elevation right hemidiaphragm versus persistent consolidation right lung base 2. No significant change strandy atelectasis/infiltrate left lung base.
--- NOTE | 2023-12-08 08:32 | P.CONIM_ITS ---
Providers/Reason For Consult 2 Consulting Physician/Specialty*: JULIENNE Lau MD/cardiology Reason for Consult*: Patient with atrial fibrillation, tacky bradycardia arrhythmia Requesting Physician: Dr. Rivero Attending Physician: Dilan Rivero MD Primary Care Provider: Jo Ledezma MD History of Present Illness History of Present Illness Kelley Quezada is a 83 year old female, is admitted to the hospital through the emergency room where she presented with complaints of acute on chronic respiratory failure. She had a prolonged hospital stay in August of this year when she was admitted with hypoxic respiratory failure pneumonia complicated with large pleural effusion requiring thoracentesis. She also had features of diastolic heart failure. She has a history of chronic atrial fibrillation. She was found to have episodes of tacky bradycardia arrhythmia on the monitor. Cardiology consult is requested for further cardiac evaluation recommendations. This patient was admitted to the hospital with the features of hypoxic, hypercapnic respiratory failure. She was treated with diuretics, bronchodilators, steroids, BiPAP and other symptomatic measures. Her respiratory status started improving. Apparently she had a fall in the ICU sustaining a valgus impacted femoral neck fracture on the left side for which she underwent closed reduction and fixation. She seems to be improving fairly well. She had a large pleural effusion on the right side for which she underwent ultrasound guided thoracentesis. Around 1 L of fluid was drained. She was admitted to hospital in August with the pneumonia causing complete opacification of the right's plan. The bronchoscopy revealed features of tracheobronchio malacia This patient denies any chest pain or chest tightness. She has no palpitation, dizziness or syncopal episode. Currently the telemetry shows atrial fibrillation with rapid ventricular rate. She is on long-term oral anticoagulation. Her echocardiogram revealed features of low gradient aortic valve stenosis, moderately severe eccentric mitral regurgitation, moderate pulmonary hypertension with a PA pressure in the 60s. Currently her main complaint is the left leg pain. She has some improvement since the surgery Review of Systems 2 Narrative: CONSTITUTIONAL: No fever or chills. EYES: No blurring of vision or other visual disturbances lately. ENT: No hoarseness of voice, auditory disturbances or sore throat. CARDIOVASCULAR: As mentioned above. RESPIRATORY: As mentioned above GASTROINTESTINAL: No hematemesis or melena. GENITOURINARY: No dysuria or hematuria. INTEGUMENTARY: No skin rashes or history of skin cancer. NEURO: No transient ischemic attacks or amaurosis. PSYCHIATRIC: No history of psychosis or major depression. HEMATOLOGIC: No bleeding disorders or significant anemia. ENDOCRINE: No history of polyuria or polydipsia. MUSCULOSKELETAL: As mentioned above ALLERGY/IMMUNOLOGY: As mentioned above. Medications/Allergies Home Medications Medication Instructions Recorded Confirmed Last Taken Type calcium carbonate (Calcium 600) 600 mg PO DAILY 08/09/22 12/02/23 12/02/23 History ondansetron HCl 4 mg tablet 4 mg PO Q6H PRN nausea and 08/24/23 12/02/23 Unknown Rx vomiting #30 tabs clonidine HCl 0.1 mg tablet 0.1 mg PO BID 08/27/23 12/02/23 12/02/23 History levothyroxine 125 mcg tablet 125 mcg PO QAM 08/27/23 12/02/23 12/02/23 History metoprolol tartrate 50 mg tablet 75 mg PO BID 08/27/23 12/02/23 12/02/23 History omeprazole 40 mg capsule,delayed 40 mg PO DAILY 08/27/23 12/02/23 12/02/23 History release portable oxygen at 2L via NC #1 ea 09/20/23 12/02/23 Unknown Rx chest vest #1 ea 09/21/23 12/02/23 Unknown Rx apixaban 5 mg tablet (Eliquis) 5 mg PO Q12H 30 days #60 tabs 10/09/23 12/02/23 12/02/23 Rx lovastatin 20 mg tablet 40 mg (2 x 20 mg) PO DAILY #60 tabs 10/30/23 12/02/23 12/02/23 Rx letrozole 2.5 mg tablet 2.5 mg PO DAILY #30 tabs 11/22/23 12/02/23 12/02/23 Rx tramadol 50 mg tablet 50 mg PO Q6H PRN pain 7 days #28 12/07/23 Unknown Rx tabs Allergies Allergy/AdvReac Type Severity Reaction Status Date / Time adhesive Allergy Intermediate ALGY-Bliste Verified 12/02/23 15:32 r clarithromycin [From Biaxin] Allergy Intermediate thrush Verified 12/02/23 15:32 Penicillins Allergy Unknown Unknown Verified 12/02/23 15:32 Current Medications Generic Name Dose Route Start Last Admin Trade Name Freq PRN Reason Stop Dose Admin Albuterol/Ipratropium 3 ml 12/02/23 20:00 12/08/23 08:16 Ipratropium-Albuterol 3 Ml Neb INHALATION 3 ml Q6H.RESP ABHAY Administration Apixaban 2.5 mg 12/02/23 18:15 12/08/23 05:19 Apixaban 5 Mg Tablet PO 2.5 mg Q12H ABHAY Administration Atorvastatin Calcium 20 mg 12/03/23 09:00 12/07/23 08:12 Atorvastatin 40 Mg Tablet PO 20 mg DAILY ABHAY Administration Meropenem 1,000 mg/ Sodium 50 mls @ 100 mls/hr 12/03/23 10:00 12/07/23 21:50 Chloride IV Infused Q12H ABHAY Infusion Protocol Levothyroxine Sodium 112 mcg 12/03/23 06:00 12/08/23 05:19 Levothyroxine 112 Mcg Tablet PO 112 mcg QAM ABHAY Administration Non-Formulary Medication 2.5 mg 12/03/23 09:00 12/07/23 08:09 Letrozole PO Not Given DAILY ABHAY Ondansetron HCl 4 mg 12/02/23 18:06 12/06/23 18:37 Ondansetron 4 Mg Tablet PO 4 mg Q8H PRN Administration NAUSEA Pantoprazole Sodium 40 mg 12/03/23 09:00 12/07/23 08:[address] 40 Mg Tablet PO 40 mg DAILY ABHAY Administration Prednisone 40 mg 12/07/23 09:00 12/07/23 08:13 Prednisone 20 Mg Tablet PO 40 mg DAILY ABHAY Administration Tramadol HCl 25 mg 12/07/23 12:17 12/07/23 12:26 Tramadol 50 Mg Tablet PO 25 mg Q6H PRN Administration MODERATE PAIN PFSH Acute 2 PFSH: Medical History Osteoporosis Gout History of right shoulder fracture Breast cancer, left 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 Nu Hubbard [facility] Family History Sister Cancer Breast Other Family history non-contributory Suicide Denies family history of Diabetes CAD (coronary artery disease) Clotting disorder Dementia Hyperlipidemia Psychiatric illness Chronic kidney disease (CKD) Anesthesia complication Bleeding disorder Lung disease Hypertension Stroke Social History Smoking and tobacco/nicotine status: former use of tobacco/nicotine Quit status (tobacco/nicotine): has quit using Year quit tobacco: 1966 Former quit date comment: 0.25 ppd X 4 years Second hand smoke exposure: No Alcohol intake: never Substance/Drug Use: never Caregiver/support person: Yes Lives independently: Yes Household members: spouse Marital status: Current occupational status: retired Current gender identity: Female Special temi needs: No Agree to transfusion: Yes Vitals/I&O/Wt Last Vital Signs Temp 97.7 F 12/08/23 07:21 Pulse 117 H 12/08/23 08:17 Resp 18 12/08/23 08:17 BP 127/84 12/08/23 07:21 Pulse Ox 97 12/08/23 08:17 O2 Del Method Nasal Cannula 12/08/23 08:17 O2 Flow Rate 4 12/08/23 08:17 FiO2 40 12/08/23 03:53 12/07/23 12/08/23 12/08/23 22:59 06:59 14:59 Intake Total 530 / 700 Output Total 350 / 450 250 / 700 Balance 180 / 250 -250 / 0 Weight last 48 hrs Weight 204 lb 9 oz Weight 199 lb Physical Exam 2 Narrative: GENERAL: The patient is alert and oriented times three. Not in any acute distress. HEENT: No significant pallor, icterus or lymphadenopathy.Oral cavity: There are no mucous membrane lesions. NECK: Trachea appears to be central. No masses noted. No JVD or thyromegaly appreciated. RESPIRATORY: Chest is symmetrical. No intercostals muscle retraction or any accessory muscle activation. There is no chest wall tenderness. Breath sounds are heard bilaterally. No rales or rhonchi heard. No evidence of any consolidation. BREASTS: Deferred. HEART: The heart sounds are normal. No S3 or S4. Ejection stock murmur grade 3 or 6 in the aortic area. Early systolic murmur grade 3/ 6 in the left sternal border. No pericardial rub ABDOMEN: No vessel pulsations or distention. No tenderness. No organomegaly appreciated. Bowel sounds are normally heard. : Deferred. RECTAL: Deferred. LYMPHATIC: No lymphadenopathy noted in the neck. EXTREMITIES: No edema or cyanosis. No clubbing. MUSCULOSKELETAL: No acute joint deformities or swelling SKIN: There are no significant rashes or ecchymosis NEUROPSYCHIATRIC: The patient is alert and oriented x3. Appears to be in a good mood. No tremors or rigidity noted. Urinary Catheter Management: Vázquez: Cath Placed During This Visit: yes Reason for Continuing Indwelling Catheter: Required Immobilization for Trauma or Surgery or Anesthesia Urinary Catheter Date of Insertion: 12/02/23 Urinary Catheter Time of Insertion: 17:28 Data 12/08/23 03:07 12/08/23 03:07 Other Labs: Laboratory Last Values WBC 9.87 10^3/uL (3.29-11.43) 12/08/23 03:07 RBC 3.66 10^6/uL (3.85-5.65) L 12/08/23 03:07 Hgb 10.10 g/dL (11.27-16.99) L 12/08/23 03:07 Hct 34.3 % (36-47) L 12/08/23 03:07 MCV 93.7 fl (85-98) 12/08/23 03:07 MCH 27.6 pg (27-33) 12/08/23 03:07 MCHC 29.4 g/dL (30-55) L 12/08/23 03:07 RDW 15.5 % (12.1-15.1) H 12/08/23 03:07 Plt Count 225 10^3/cmm (157-399) 12/08/23 03:07 MPV 11.2 fL (7.4-10.4) H 12/08/23 03:07 Neut % (Auto) 87.5 % 12/08/23 03:07 Lymph % (Auto) 5.9 % 12/08/23 03:07 [place] % (Auto) 5.8 % 12/08/23 03:07 Eos % (Auto) 0.0 % 12/08/23 03:07 Baso % (Auto) 0.1 % 12/08/23 03:07 Neut # (Auto) 8.64 10^3/uL (1.8-7.7) H 12/08/23 03:07 Lymph # (Auto) 0.6 10^3/uL (0.8-4.8) L 12/08/23 03:07 [place] # (Auto) 0.6 10^3/uL (0.2-0.9) 12/08/23 03:07 Eos # (Auto) 0.0 10^3/uL (0.0-0.8) 12/08/23 03:07 Baso # (Auto) 0.0 10^3/uL (0.0-0.1) 12/08/23 03:07 Nucleated RBC % (auto) 0.2 % 12/08/23 03:07 Nucleated RBCs # 0.0 /100WBC 12/08/23 03:07 Differential Comment Yes 12/03/23 Unknown PT 16.60 SECONDS (12.1-14.9) H 12/02/23 14:57 INR 1.29 (0.8-1.2) H 12/02/23 14:57 Specimen Type Arterial 12/04/23 03:29 Sample Site Radial, left 12/04/23 03:29 ABG pH 7.34 (7.35-7.45) L 12/04/23 03:29 ABG pCO2 52.4 mmHg (35-45) H 12/04/23 03:29 ABG pO2 69.7 mmHg (80.0-100.0) L 12/04/23 03:29 ABG PO2/FiO2 Ratio 0 12/04/23 03:29 ABG HCO3 28.2 mmol/L (22-26) H 12/04/23 03:29 ABG O2 Saturation 95.6 12/02/23 15:21 ABG Base Excess 2.1 mmol/L (-2.0-2.0) H 12/04/23 03:29 Mikhail Test Pos 12/04/23 03:29 A-a O2 Gradient 10.1 mmHg (5-10) H 12/02/23 15:21 Hematocrit 23.3 % (37-47) L 12/04/23 03:29 Hgb O2 Saturation 94.2 % (95-100) L 12/02/23 15:21 Carboxyhemoglobin 0.9 %THgb (0.4-20.1) 12/02/23 15:21 Methemoglobin 0.5 % (0.4-1.5) 12/02/23 15:21 Total Hemoglobin 12.2 g/dL (12-16) 12/02/23 15:21 Sodium 143.0 mmol/L (131-143) 12/02/23 15:21 Potassium 4.6 mmol/L (3.5-5.0) 12/02/23 15:21 Glucose 142.0 mg/dL (70-115) H 12/02/23 15:21 Ionized Calcium 1.2 mmol/L (1.1-1.4) 12/02/23 15:21 O2 Delivery Device Nc 12/04/23 03:29 O2 Liters/Min 5.0 % 12/04/23 03:29 FiO2 40.0 % 12/04/23 03:29 Tidal Volume 0.42 12/03/23 03:55 PEEP 10.0 cmH20 12/03/23 03:55 Surgical Resident ID Alewe 12/04/23 03:29 Sodium 143 mmol/L (136-145) 12/08/23 03:07 Potassium 5.6 mmol/L (3.5-5.1) H 12/08/23 03:07 Chloride 104 mmol/L (98-107) 12/08/23 03:07 Carbon Dioxide 29 mmol/L (22-29) 12/08/23 03:07 Anion Gap 15.6 (5-19) 12/08/23 03:07 BUN 72 mg/dL (8-23) H 12/08/23 03:07 Creatinine 1.9 mg/dL (0.5-0.9) H 12/08/23 03:07 GFR Calculation Not Reportable 12/08/23 03:07 Glucose 133 mg/dL (65-115) H 12/08/23 03:07 POC Glucose 145 mg/dL (70-110) H 12/03/23 20:29 Calculated Osmolality 319 mOsm/kg (285-295) H 12/08/23 03:07 Lactic Acid 1.2 mmol/L (0.5-2.2) 12/02/23 14:57 Calcium 7.8 mg/dL (8.5-10.5) L 12/08/23 03:07 Phosphorus 4.4 mg/dL (2.5-4.5) 12/08/23 03:07 Magnesium 2.6 mg/dL (1.7-2.3) H 12/08/23 03:07 Total Bilirubin 0.5 mg/dL (0.15-1.2) 12/08/23 03:07 AST 30 U/L (0-32) 12/08/23 03:07 ALT 30 U/L (0-33) 12/08/23 03:07 Alkaline Phosphatase 84 U/L (35-105) 12/08/23 03:07 Creatine Kinase 35 U/L (26-192) 12/08/23 03:07 Troponin T Baseline 36 ng/L (0-10) H 12/07/23 12:15 Troponin T 120 Minute 36.22 ng/L (0-10) H 12/07/23 14:10 Delta Troponin T 0.22 ABS# (0-10) 12/07/23 14:10 Troponin T Hi Sens 6Hr 32.11 ng/L (0-10) H 12/07/23 18:14 Troponin T Hi Sens 6Hr Delta -3.89 ng/L (0-12) L 12/07/23 18:14 C-Reactive Protein 3.1 mg/L (0.0-4.9) 12/07/23 04:15 NT-Pro-B Natriuret Pep 5669 pg/mL (0-450) H 12/08/23 03:07 Total Protein 5.2 g/dL (6.6-8.7) L 12/08/23 03:07 Albumin 3.3 g/dL (3.5-5.2) L 12/08/23 03:07 Globulin 1.9 g/dL (1.3-4.6) 12/08/23 03:07 25-OH Vitamin D Total 44 ng/mL (30-100) 12/03/23 05:03 Procalcitonin 0.13 ng/mL (0-0.5) 12/02/23 14:57 Urine Color Colorless (Yellow) 12/02/23 19:14 Urine Appearance Clear (CLEAR) 12/02/23 19:14 Urine pH 5 (5-7) 12/02/23 19:14 Ur Specific Range 1.005 (1.005-1.030) 12/02/23 19:14 Urine Protein Neg (Negative) 12/02/23 19:14 Urine Glucose (UA) Norm (Normal) 12/02/23 19:14 Urine Ketones Negative (Negative) 12/02/23 19:14 Urine Blood Trace (Negative) H 12/02/23 19:14 Urine Nitrate Negative (Negative) 12/02/23 19:14 Urine Bilirubin Neg (Negative) 12/02/23 19:14 Urine Urobilinogen Neg mg/dL (Negative) 12/02/23 19:14 Ur Leukocyte Esterase Negative (Negative) 12/02/23 19:14 Urine RBC 5-10 /hpf (0-2) H 12/02/23 19:14 Urine WBC 0-4 /hpf (0-5) H 12/02/23 19:14 Ur Squamous Epith Cells 0-4 /hpf (0-5) H 12/02/23 19:14 Amorphous Sediment Trace /hpf 12/02/23 19:14 Urine Bacteria Trace /hpf (NONE) 12/02/23 19:14 Hyaline Casts 0-4 /lpf H 12/02/23 19:14 Urine Mucus Trace /hpf 12/02/23 19:14 Fluid Color Yellow 12/03/23 Unknown Fluid Appearance Cloudy 12/03/23 Unknown Fluid WBC 716 /uL 12/03/23 Unknown Fluid RBC 2.000 10^3/uL 12/03/23 Unknown Fluid Hematocrit 0.0 % 12/03/23 Unknown Fld Polynuclear WBCs # 0.216 12/03/23 Unknown Fld Polynuclear WBCs % 30.200 % 12/03/23 Unknown Fl Mononucl WBCs #(Auto) 0.500 12/03/23 Unknown Fl Mononuclear % Auto 69.800 % 12/03/23 Unknown Fld Crystal Laterality Right 12/03/23 Unknown Fluid Albumin 2.0 g/dL 12/03/23 Unknown Fluid Creatinine 1.63 (0.5-0.9) H 12/03/23 Unknown Pleural pH 8.00 (6.5-7.5) H 12/03/23 Unknown Pleural Total Protein 2.8 g/dL 12/03/23 Unknown Pleural LDH 77 U/L 12/03/23 Unknown Pleural Glucose 121.0 mg/dL 12/03/23 Unknown Pleural Amylase 35 U/L 12/03/23 Unknown Pleural Triglycerides 33 mg/dL 12/03/23 Unknown SARS-CoV-2 Ag (Rapid) negative (Negative) 12/02/23 15:11 Blood Type A Positive 12/04/23 20:42 Rho(D) Type Rh positive 12/04/23 20:42 Antibody Screen Negative 12/04/23 20:42 Micro: Microbiology 12/02/23 14:57 Blood Culture - Final Blood NO GROWTH AFTER 5 DAYS 12/02/23 14:52 Blood Culture - Final Blood NO GROWTH AFTER 5 DAYS 12/03/23 Unknown Gram Stain - Final Pleural Fluid Body Fluid Culture - Final Other data: EKG on 12/07/2023 Atrial fibrillation with a slow ventricular response rate of 53 bpm Echocardiogram in August 2023 Normal left ventricular size and systolic function, EF 73 %. No regional wall motion abnormalities. Moderate-severe eccentric mitral valve regurgitation. Severe, low gradient , normal flow aortic valve stenosis, mean gradient 7.9 mmHg, BEBETO 0.83 cm squared. [id number] tricuspid valve regurgitation. Moderate pulmonary hypertension with an estimated pulmonary artery peak systolic pressure of 65 mmHg. Mild pulmonary valve regurgitation. There is no pericardial effusion. Comparison with the previous study on 11/14/2018 is difficult because of the differences in the technical quality. There may not be any significant changes in the 2D findings A&P Assessment and plan (1) Chronic atrial fibrillation: This patient may have some underlying sinus kasandra dysfunction. Currently she is in atrial fibrillation rapid ventricular rate. We may cautiously administer AV kasandra blocking agent , preferably Cardizem and the dose may be gradually increased. Eventually the patient may require a permanent pacemaker for further management of her condition. Since she does not seem to have any significant symptoms of tachy or volodymyr arrhythmias this point. Because of the age and the kidney function, the dose of the Eliquis may need to be cut back (2) Mitral regurgitation: Patient had moderately severe eccentric mitral regurgitation by transthoracic echocardiogram. She may require a LISA to better evaluate the mitral regurgitation. Qualifiers: Cardiac valve disease etiology: nonrheumatic Qualified Code(s): I34.0 - Nonrheumatic mitral (valve) insufficiency (3) Aortic stenosis: The patient seems to have low gradient normal flow aortic valve stenosis. Qualifiers: Cardiac valve disease etiology: nonrheumatic Qualified Code(s): I35.0 - Nonrheumatic aortic (valve) stenosis (4) Congestive heart failure: Patient seems to have intermittent decompensation of the chronic diastolic heart failure. Currently she seems to be compensated. Qualifiers: Heart failure type: diastolic Heart failure chronicity: chronic Qualified Code(s): I50.32 - Chronic diastolic (congestive) heart failure (5) Moderate pulmonary hypertension: The estimated pulmonary artery peak systolic pressure was around 65 mmHg based on echocardiogram. Consider starting the patient on a low-dose of calcium channel eileen for the atrial fibrillation as well as for the pulmonary hypertension (6) Essential (primary) hypertension: Currently normotensive. (7) Mixed hyperlipidemia: Continue on the current management Plan Patient on the patient's clinical progress, further recommendations will be made. Thank you for the opportunity to evaluate this patient and make these recommendations. Discussed with Dr. Rivero Consult Attestations 2 Medical Necessity Statement: Deferred to the primary Coding Level of Care Code 22567 Diagnoses Chronic atrial fibrillation I48.20 Nonrheumatic mitral valve regurgitation I34.0 Cardiac valve disease etiology: nonrheumatic Nonrheumatic aortic valve stenosis I35.0 Cardiac valve disease etiology: nonrheumatic Chronic diastolic congestive heart failure I50.32 Heart failure type: diastolic Heart failure chronicity: chronic Moderate pulmonary hypertension I27.20 Essential (primary) hypertension I10 Mixed hyperlipidemia E78.2
[2023-12-08] MEDS: atorvastatin 40 mg Tablet 20 MG PO (08:43)
[2023-12-08] MEDS: pantoprazole DR 40 mg Tablet PO (08:43)
[2023-12-08] MEDS: predniSONE 20 mg Tablet 40 MG PO (08:44)
[2023-12-08 08:45] LABS: Creatine Phosphokinase 35 U/L (26-192)
[2023-12-08] MEDS: metoprolol tartrate 25 mg Tablet PO (08:46)
[2023-12-08] MEDS: sodium chloride 0.9% 1,000 ML 30 ML IV (08:47)
[2023-12-08] MEDS: meropenem 1,000 MG in sodium chloride 0.9% (plus) 50 ML 100 MG IV ×2 (09:46→21:47)
[2023-12-08] MEDS: TRAMadol 50 mg Tablet 25 MG PO (09:51)
[2023-12-08 11:55] LABS: Blood Urea Nitrogen 67 mg/dL (8-23); Calcium 7.9 mg/dL (8.5-10.5); Carbon Dioxide 29 mmol/L (22-29); Chloride 104 mmol/L (98-107); Glucose 111 mg/dL (65-115); Osmolality Calculated 316 mOsm/kg (285-295); Sodium 143 mmol/L (136-145)
[2023-12-08 11:56] LABS: Creatinine Clr Calc Pharmacy 29.8441
[2023-12-08 11:57] LABS: Anion Gap 15.1 (5-19); Potassium 5.1 mmol/L (3.5-5.1)
[2023-12-08] MEDS: dilTIAZem 30 mg Tablet PO ×2 (13:57→19:22)
--- NOTE | 2023-12-08 14:07 | P.PN_ITS ---
Subjective 2 Subjective: - Patient was seen this morning ? Currently sitting up in a chair, nursing staff at bedside ? She is alert oriented x 3, follows all commands, she tells me that she feels better this morning ? Her heart rates have gone into the 120s A-fib, I gave her 1 dose of 25 mg metoprolol ? Discussed my concerns for tachybradycardia syndrome, Dr. Lau has been consulted for cardiology will await his recommendations ? We did discuss her creatinine up to 1.90, admitted placed on gentle IV hydration normal saline at 30 cc an hour I am worried about her elevated BNP over 5000 and the risk of fluid overload will monitor ? We discussed her dysphagia level 6 diet, will have to monitor very closely for aspiration precautions ? Her pain is well-controlled however she continues to report generalized weakness Vitals/I&O/Wt Last Vital Signs Temp 98.2 F 12/08/23 12:02 Pulse 109 H 12/08/23 14:01 Resp 18 12/08/23 14:01 BP 134/86 12/08/23 12:02 Pulse Ox 96 12/08/23 14:01 O2 Del Method Nasal Cannula 12/08/23 14:01 O2 Flow Rate 4 12/08/23 14:01 FiO2 40 12/08/23 03:53 12/07/23 12/08/23 12/08/23 22:59 06:59 14:59 Intake Total 530 / 700 50 / 50 Output Total 350 / 450 250 / 700 300 / 300 Balance 180 / 250 -250 / 0 -250 / -250 Weight last 48 hrs Weight 92.788 kg Weight 90.265 kg Physical Exam 2 Urinary Catheter Management: Vázquez: Cath Placed During This Visit: yes Reason for Continuing Indwelling Catheter: Required Immobilization for Trauma or Surgery or Anesthesia Urinary Catheter Date of Insertion: 12/02/23 Urinary Catheter Time of Insertion: 17:28 Data 12/08/23 03:07 12/08/23 11:30 Micro: Microbiology 12/02/23 14:57 Blood Culture - Final Blood NO GROWTH AFTER 5 DAYS 12/02/23 14:52 Blood Culture - Final Blood NO GROWTH AFTER 5 DAYS 12/03/23 Unknown Gram Stain - Final Pleural Fluid Body Fluid Culture - Final A&P Assessment and plan (1) Acute exacerbation of CHF (congestive heart failure): Qualifiers: Heart failure type: diastolic Qualified Code(s): I50.33 - Acute on chronic diastolic (congestive) heart failure (2) Acute respiratory failure with hypoxemia: (3) Acute on chronic kidney failure: Qualifiers: Acute renal failure type: unspecified Chronic kidney disease stage: u nspecified stage Qualified Code(s): N17.9 - Acute kidney failure, unspecified; N18.9 - Chronic kidney disease, unspecified (4) Chronic respiratory failure: Qualifiers: Respiratory failure complication: unspecified whether with hypoxia or hypercapnia Qualified Code(s): J96.10 - Chronic respiratory failure, unspecified whether with hypoxia or hypercapnia (5) Mitral regurgitation: Qualifiers: Cardiac valve disease etiology: nonrheumatic Qualified Code(s): I34.0 - Nonrheumatic mitral (valve) insufficiency (6) Moderate pulmonary hypertension: (7) Aortic stenosis: Qualifiers: Cardiac valve disease etiology: nonrheumatic Qualified Code(s): I35.0 - Nonrheumatic aortic (valve) stenosis (8) Atrial fibrillation with rapid ventricular response: (9) Aspiration pneumonia: (10) Acute on chronic respiratory failure with hypoxia and hypercapnia: (11) Pulmonary hypertension: Plan Acute hypoxic hypercarbic respiratory failure ? Likely secondary to CHF exacerbation, aortic stenosis, A-fib with RVR ? Diastolic CHF exacerbation, BNP [address]10, resolving ? With concerns for underlying silent aspiration, aspiration pneumonia, resolving ? During last hospitalization, patient had thick mucus secretions around left bronchial tree, with complete opacification of left lung, she also has right hemidiaphragmatic elevation, -Initially in mild to moderate respiratory distress and his cardiac stepdown unit, this afternoon much more comfortable in intensive care unit ? Status post thoracocentesis, 1 L removed, so far Gram stain within normal limits, pathology pending ? Plan, ? Moved to medical floors ?continue BiPAP during the night, scheduled during the day ? De-escalate to prednisone -Lasix 40 mg IV twice daily on hold as patient looks euvolemic ? Patient has severe aortic stenosis low gradient likely also playing a role ? A-fib with RVR also playing a role, back in A-fib with RVR, status post 1 dose p.o. 25 mg p.o. metoprolol, will switch to Cardizem 30 every 6 ? meropenem, continue for now as patient has penicillin allergy ? Monitor respiratory status closely, ? CODE STATUS full code Lovenox for DVT prophylaxis TANJA on CKD, creatinine 1.9, monitor, repeat BMP at 12 PM, normal saline 30 cc an hour, will consider discontinuing fluids based on clinical progress and risk of fluid overload Aortic stenosis, severe low gradient, likely also playing A-fib with RVR, now with tachybradycardia syndrome, hypotension ? Cardizem 30 every 6 ? 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 Peterson as outpatient Moderate pulm hypertension Right pleural effusion status post thoracocentesis, 1 L removed, cultures so far negative Chronic right diaphragm elevation Left hip 1. Acute, nondisplaced but impacted LEFT hip subcapital fracture with extension into the femoral neck. ? Status post Left hip closed reduction and percutaneous screw fixation Plan ? pt/ot ? Ultram for pain control ? PT OT Full code ? SCDs for DVT prophylaxis, eliquis Status is stable, Plan for today, given 1 dose of 25 mg p.o. metoprolol for atrial fibrillation, spoke to cardiology Dr. Lau, prefer to try Cardizem, stop metoprolol, switch to Cardizem 30 mg every 6 hours ? Given creatinine 1.9 will consider consulting nephrology however continue IV hydration monitor BMP is over 5000 ? Hold off on further IV diuresis, next ?will continue meropenem, has penicillin allergy cannot give Augmentin ? Following blood cultures, oral cultures, ? Spoke to nursing staff, spoke to cardiology, spoke to nursing staff Attestations 2 Medical Necessity Statement*: Patient requires hospitalization for acute hypoxic respiratory failure, A-fib with RVR aspiration pneumonia aspiration pneumonitis, now TANJA and High MDM includes number and complexity of problems actively addressed during encounter, amount and/or complexity of data reviewed/ordered and described risk of complication, morbidity or mortality of management as documented Diagnoses Acute on chronic diastolic congestive heart failure I50.33 Heart failure type: diastolic Acute respiratory failure with hypoxemia J96.01 Acute renal failure superimposed on chronic kidney disease, unspecified acute renal failure type, unspecified CKD stage N17.9; N18.9 Acute renal failure type: unspecified Chronic kidney disease stage: unspecified stage Chronic respiratory failure, unspecified whether with hypoxia or hypercapnia J96.10 Respiratory failure complication: unspecified whether with hypoxia or hypercapnia Nonrheumatic mitral valve regurgitation I34.0 Cardiac valve disease etiology: nonrheumatic Moderate pulmonary hypertension I27.20 Nonrheumatic aortic valve stenosis I35.0 Cardiac valve disease etiology: nonrheumatic Atrial fibrillation with rapid ventricular response I48.91 Aspiration pneumonia J69.0 Acute on chronic respiratory failure with hypoxia and hypercapnia J96.21; J96.22 Pulmonary hypertension I27.20
[2023-12-08] MEDS: nystatin 100,000 unit/mL UDC 5 mL 100000 UNIT PO (21:47)
[2023-12-09] VITALS (16 sets, daily range): BP systolic 120–151; BP diastolic 75–85; PULSE 84–121; RESP 15–22; TEMP 36.3–36.8; O2SAT 91–98
[2023-12-09] MEDS: dilTIAZem 30 mg Tablet PO ×2 (00:50→06:31)
[2023-12-09] MEDS: ipratropium-albuterol 3 mL Neb INHALATION ×4 (01:18→19:52)
[2023-12-09 03:08] LABS: Basophils % 0.1 %; Hematocrit 36.2 % (36-47); Lymphocytes # 0.5 10^3/uL (0.8-4.8); Lymphocytes % 4.7 %; Mean Corpuscular HGB Conc 29.8 g/dL (30-55); Mean Corpuscular Hemoglobin 27.5 pg (27-33); Mean Corpuscular Volume 92.1 fl (85-98); Mean Platelet Volume 10.4 fL (7.4-10.4); Monocytes # 0.7 10^3/uL (0.2-0.9); Monocytes % 6.4 %; Neutrophils # 9.66 10^3/uL (1.8-7.7); Neutrophils % 88.2 %; Nucleated Red Blood Cells % 0.3 %; Platelet Count 222 10^3/cmm (157-399); Red Blood Count 3.93 10^6/uL (3.85-5.65); Red Cell Distribution Width 15.3 % (12.1-15.1); White Blood Count 10.96 10^3/uL (3.29-11.43)
[2023-12-09 03:32] LABS: Alanine Aminotransferase 30 U/L (0-33); Albumin Level 3.3 g/dL (3.5-5.2); Alkaline Phosphatase 85 U/L (35-105); Anion Gap 13.4 (5-19); Aspartate Amino Transferase 27 U/L (0-32); Blood Urea Nitrogen 61 mg/dL (8-23); Calcium 7.7 mg/dL (8.5-10.5); Carbon Dioxide 30 mmol/L (22-29); Chloride 105 mmol/L (98-107); Creatinine Clr Calc Pharmacy 31.8337; Globulin 2.2 g/dL (1.3-4.6); Glucose 156 mg/dL (65-115); Magnesium 2.5 mg/dL (1.7-2.3); Osmolality Calculated 316 mOsm/kg (285-295); Phosphorus 4.1 mg/dL (2.5-4.5); Potassium 5.4 mmol/L (3.5-5.1); Sodium 143 mmol/L (136-145); Total Bilirubin 0.4 mg/dL (0.15-1.2); Total Protein 5.5 g/dL (6.6-8.7)
[2023-12-09 03:37] LABS: NT Pro B Type Natriuretic Pept 5736 pg/mL (0-450)
[2023-12-09] MEDS: apixaban 5 mg Tablet 2.5 MG PO ×2 (06:03→17:18)
[2023-12-09] MEDS: levothyroxine 112 mcg Tablet PO (06:03)
[2023-12-09] MEDS: atorvastatin 40 mg Tablet 20 MG PO (08:20)
[2023-12-09] MEDS: nystatin 100,000 unit/mL UDC 5 mL 100000 UNIT PO ×4 (08:21→21:28)
[2023-12-09] MEDS: pantoprazole DR 40 mg Tablet PO (08:21)
[2023-12-09] MEDS: TRAMadol 50 mg Tablet 25 MG PO ×2 (08:53→21:27)
[2023-12-09] MEDS: predniSONE 20 mg Tablet 40 MG PO (08:54)
[2023-12-09] MEDS: dilTIAZem 30 mg Tablet 60 MG PO ×3 (08:54→21:28)
--- NOTE | 2023-12-09 09:04 | P.PN_ITS ---
Subjective 2 Subjective: Patient denies any chest pain or chest tightness. No unusual shortness of breath. Remains afebrile. No significant bradycardias on the monitor. Currently she is on Cardizem 60 mg p.o. every 12 hours Medications: Medication Review Details: Current Medications Acetaminophen (Acetaminophen 325 Mg Tablet) 650 mg PO Q6H PRN PRN Reason: MILD TO MODERATE PAIN Albuterol/Ipratropium (Ipratropium-Albuterol 3 Ml Neb) 3 ml INHALATION Q6H.RESP [facility] Last Admin: 12/09/23 01:18 Dose: 3 ml Apixaban (Apixaban 5 Mg Tablet) 2.5 mg PO Q12H [facility] Last Admin: 12/09/23 06:03 Dose: 2.5 mg Atorvastatin Calcium (Atorvastatin 40 Mg Tablet) 20 mg PO DAILY [facility] Last Admin: 12/09/23 08:20 Dose: 20 mg Calcium Carbonate (Calcium Carbonate 500 Mg Chew Tablet) 1,000 mg PO Q4H PRN PRN Reason: DYSPEPSI Diltiazem HCl (Diltiazem 30 Mg Tablet) 60 mg PO Q6H [facility] Last Admin: 12/09/23 08:54 Dose: 60 mg Meropenem 1,000 mg/ Sodium (Chloride) 50 mls @ 100 mls/hr IV Q12H [facility]; Protocol Last Infusion: 12/08/23 22:33 Dose: Infused Levothyroxine Sodium (Levothyroxine 112 Mcg Tablet) 112 mcg PO QAM [facility] Last Admin: 12/09/23 06:03 Dose: 112 mcg Magnesium Hydroxide (Magnesium Hydroxide 30 Ml Udc) 30 ml PO DAILY PRN; Protocol PRN Reason: Constipation (see protocol) Non-Formulary Medication (Letrozole) 2.5 mg PO DAILY [facility] Last Admin: 12/09/23 08:51 Dose: Not Given Nystatin (Nystatin 100,000 Unit/Ml Udc 5 Ml) 100,000 unit PO QID [facility] [place] Last Admin: 12/09/23 08:21 Dose: 100,000 unit Ondansetron HCl (Ondansetron 4 Mg Tablet) 4 mg PO Q8H PRN PRN Reason: NAUSEA Last Admin: 12/06/23 18:37 Dose: 4 mg Pantoprazole Sodium (Pantoprazole Dr 40 Mg Tablet) 40 mg PO DAILY [facility] [place] Last Admin: 12/09/23 08:21 Dose: 40 mg Prednisone (Prednisone 20 Mg Tablet) 40 mg PO DAILY [facility] Last Admin: 12/09/23 08:54 Dose: 40 mg Tramadol HCl (Tramadol 50 Mg Tablet) 25 mg PO Q6H PRN PRN Reason: MODERATE PAIN Last Admin: 12/09/23 08:53 Dose: 25 mg Vitals/I&O/Wt Last Vital Signs Temp 97.9 F 12/09/23 07:33 Pulse 107 H 12/09/23 07:33 Resp 18 12/09/23 07:33 BP 141/82 12/09/23 07:33 Pulse Ox 96 12/09/23 07:33 O2 Del Method Nasal Cannula 12/09/23 07:33 O2 Flow Rate 4 12/09/23 07:33 FiO2 40 12/09/23 03:40 12/08/23 12/09/23 12/09/23 22:59 06:59 14:59 Intake Total 290 / 340 Output Total 950 / 1250 Balance 290 / 40 -950 / -910 Weight last 48 hrs Weight 204 lb Weight 204 lb 9 oz Physical Exam 2 Narrative: GENERAL: The patient is alert and oriented times three. Not in any acute distress. HEENT: No significant pallor, icterus or lymphadenopathy.Oral cavity: There are no mucous membrane lesions. NECK: Trachea appears to be central. No masses noted. No JVD or thyromegaly appreciated. RESPIRATORY: Chest is symmetrical. No intercostals muscle retraction or any accessory muscle activation. There is no chest wall tenderness. Breath sounds are heard bilaterally. No rales or rhonchi heard. No evidence of any consolidation. BREASTS: Deferred. HEART: The heart sounds are normal. No S3 or S4. Ejection stock murmur grade 3 or 6 in the aortic area. Early systolic murmur grade 3/ 6 in the left sternal border. No pericardial rub ABDOMEN: No vessel pulsations or distention. No tenderness. No organomegaly appreciated. Bowel sounds are normally heard. : Deferred. RECTAL: Deferred. LYMPHATIC: No lymphadenopathy noted in the neck. EXTREMITIES: No edema or cyanosis. No clubbing. MUSCULOSKELETAL: No acute joint deformities or swelling. Status post closed reduction of the left hip SKIN: There are no significant rashes or ecchymosis NEUROPSYCHIATRIC: The patient is alert and oriented x3. Appears to be in a good mood. No tremors or rigidity noted. Urinary Catheter Management: Vázquez: Cath Placed During This Visit: yes Reason for Continuing Indwelling Catheter: Other Urinary Catheter Date of Insertion: 12/02/23 Urinary Catheter Time of Insertion: 17:28 Data 12/09/23 02:26 12/09/23 02:26 Other Labs: Laboratory Last Values WBC 10.96 10^3/uL (3.29-11.43) 12/09/23 02: RBC 3.93 10^6/uL (3.85-5.65) 12/09/23 02:26 Hgb 10.80 g/dL (11.27-16.99) L 12/09/23 02:26 Hct 36.2 % (36-47) 12/09/23 02: MCV 92.1 fl (85-98) 12/09/23 02: MCH 27.5 pg (27-33) 12/09/23 02: MCHC 29.8 g/dL (30-55) L 12/09/23 02: RDW 15.3 % (12.1-15.1) H 12/09/23 02:26 Plt Count 222 10^3/cmm (157-399) 12/09/23 02: MPV 10.4 fL (7.4-10.4) 12/09/23 02: Neut % (Auto) 88.2 % 12/09/23 02: Lymph % (Auto) 4.7 % 12/09/23 02: [place] % (Auto) 6.4 % 12/09/23 02: Eos % (Auto) 0.0 % 12/09/23 02: Baso % (Auto) 0.1 % 12/09/23 02:26 Neut # (Auto) 9.66 10^3/uL (1.8-7.7) H 12/09/23 02:26 Lymph # (Auto) 0.5 10^3/uL (0.8-4.8) L 12/09/23 02:26 [place] # (Auto) 0.7 10^3/uL (0.2-0.9) 12/09/23 02:26 Eos # (Auto) 0.0 10^3/uL (0.0-0.8) 12/09/23 02:26 Baso # (Auto) 0.0 10^3/uL (0.0-0.1) 12/09/23 02:26 Nucleated RBC % (auto) 0.3 % 12/09/23 02:26 Nucleated RBCs # 0.0 /100WBC 12/09/23 02:26 Differential Comment Yes 12/03/23 Unknown PT 16.60 SECONDS (12.1-14.9) H 12/02/23 14:57 INR 1.29 (0.8-1.2) H 12/02/23 14:57 Specimen Type Arterial 12/04/23 03:29 Sample Site Radial, left 12/04/23 03:29 ABG pH 7.34 (7.35-7.45) L 12/04/23 03:29 ABG pCO2 52.4 mmHg (35-45) H 12/04/23 03:29 ABG pO2 69.7 mmHg (80.0-100.0) L 12/04/23 03:29 ABG PO2/FiO2 Ratio 0 12/04/23 03:29 ABG HCO3 28.2 mmol/L (22-26) H 12/04/23 03:29 ABG O2 Saturation 95.6 12/02/23 15:21 ABG Base Excess 2.1 mmol/L (-2.0-2.0) H 12/04/23 03:29 Mikhail Test Pos 12/04/23 03:29 A-a O2 Gradient 10.1 mmHg (5-10) H 12/02/23 15:21 Hematocrit 23.3 % (37-47) L 12/04/23 03:29 Hgb O2 Saturation 94.2 % (95-100) L 12/02/23 15:21 Carboxyhemoglobin 0.9 %THgb (0.4-20.1) 12/02/23 15:21 Methemoglobin 0.5 % (0.4-1.5) 12/02/23 15:21 Total Hemoglobin 12.2 g/dL (12-16) 12/02/23 15:21 Sodium 143.0 mmol/L (131-143) 12/02/23 15:21 Potassium 4.6 mmol/L (3.5-5.0) 12/02/23 15:21 Glucose 142.0 mg/dL (70-115) H 12/02/23 15:21 Ionized Calcium 1.2 mmol/L (1.1-1.4) 12/02/23 15:21 O2 Delivery Device Nc 12/04/23 03:29 O2 Liters/Min 5.0 % 12/04/23 03:29 FiO2 40.0 % 12/04/23 03:29 Tidal Volume 0.42 12/03/23 03:55 PEEP 10.0 cmH20 12/03/23 03:55 Apparatus Lineman ID Alewe 12/04/23 03:29 Sodium 143 mmol/L (136-145) 12/09/23 02:26 Potassium 5.4 mmol/L (3.5-5.1) H 12/09/23 02:26 Chloride 105 mmol/L (98-107) 12/09/23 02:26 Carbon Dioxide 30 mmol/L (22-29) H 12/09/23 02:26 Anion Gap 13.4 (5-19) 12/09/23 02:26 BUN 61 mg/dL (8-23) H 12/09/23 02:26 Creatinine 1.5 mg/dL (0.5-0.9) H 12/09/23 02:26 GFR Calculation Not Reportable 12/09/23 02:26 Glucose 156 mg/dL (65-115) H 12/09/23 02:26 POC Glucose 145 mg/dL (70-110) H 12/03/23 20:29 Calculated Osmolality 316 mOsm/kg (285-295) H 12/09/23 02:26 Lactic Acid 1.2 mmol/L (0.5-2.2) 12/02/23 14:57 Calcium 7.7 mg/dL (8.5-10.5) L 12/09/23 02:26 Phosphorus 4.1 mg/dL (2.5-4.5) 12/09/23 02:26 Magnesium 2.5 mg/dL (1.7-2.3) H 12/09/23 02:26 Total Bilirubin 0.4 mg/dL (0.15-1.2) 12/09/23 02:26 AST 27 U/L (0-32) 12/09/23 02:26 ALT 30 U/L (0-33) 12/09/23 02:26 Alkaline Phosphatase 85 U/L (35-105) 12/09/23 02:26 Creatine Kinase 35 U/L (26-192) 12/08/23 03:07 Troponin T Baseline 36 ng/L (0-10) H 12/07/23 12:15 Troponin T 120 Minute 36.22 ng/L (0-10) H 12/07/23 14:10 Delta Troponin T 0.22 ABS# (0-10) 12/07/23 14:10 Troponin T Hi Sens 6Hr 32.11 ng/L (0-10) H 12/07/23 18:14 Troponin T Hi Sens 6Hr Delta -3.89 ng/L (0-12) L 12/07/23 18:14 C-Reactive Protein 3.1 mg/L (0.0-4.9) 12/07/23 04:15 NT-Pro-B Natriuret Pep 5736 pg/mL (0-450) H 12/09/23 02:26 Total Protein 5.5 g/dL (6.6-8.7) L 12/09/23 02:26 Albumin 3.3 g/dL (3.5-5.2) L 12/09/23 02:26 Globulin 2.2 g/dL (1.3-4.6) 12/09/23 02:26 25-OH Vitamin D Total 44 ng/mL (30-100) 12/03/23 05:03 Procalcitonin 0.13 ng/mL (0-0.5) 12/02/23 14:57 Urine Color Colorless (Yellow) 12/02/23 19:14 Urine Appearance Clear (CLEAR) 12/02/23 19:14 Urine pH 5 (5-7) 12/02/23 19:14 Ur Specific [place] 1.005 (1.005-1.030) 12/02/23 19:14 Urine Protein Neg (Negative) 12/02/23 19:14 Urine Glucose (UA) Norm (Normal) 12/02/23 19:14 Urine Ketones Negative (Negative) 12/02/23 19:14 Urine Blood Trace (Negative) H 12/02/23 19:14 Urine Nitrate Negative (Negative) 12/02/23 19:14 Urine Bilirubin Neg (Negative) 12/02/23 19:14 Urine Urobilinogen Neg mg/dL (Negative) 12/02/23 19:14 Ur Leukocyte Esterase Negative (Negative) 12/02/23 19:14 Urine RBC 5-10 /hpf (0-2) H 12/02/23 19:14 Urine WBC 0-4 /hpf (0-5) H 12/02/23 19:14 Ur Squamous Epith Cells 0-4 /hpf (0-5) H 12/02/23 19:14 Amorphous Sediment Trace /hpf 12/02/23 19:14 Urine Bacteria Trace /hpf (NONE) 12/02/23 19:14 Hyaline Casts 0-4 /lpf H 12/02/23 19:14 Urine Mucus Trace /hpf 12/02/23 19:14 Fluid Color Yellow 12/03/23 Unknown Fluid Appearance Cloudy 12/03/23 Unknown Fluid WBC 716 /uL 12/03/23 Unknown Fluid RBC 2.000 10^3/uL 12/03/23 Unknown Fluid Hematocrit 0.0 % 12/03/23 Unknown Fld Polynuclear WBCs # 0.216 12/03/23 Unknown Fld Polynuclear WBCs % 30.200 % 12/03/23 Unknown Fl Mononucl WBCs #(Auto) 0.500 12/03/23 Unknown Fl Mononuclear % Auto 69.800 % 12/03/23 Unknown Fld Crystal Laterality Right 12/03/23 Unknown Fluid Albumin 2.0 g/dL 12/03/23 Unknown Fluid Creatinine 1.63 (0.5-0.9) H 12/03/23 Unknown Pleural pH 8.00 (6.5-7.5) H 12/03/23 Unknown Pleural Total Protein 2.8 g/dL 12/03/23 Unknown Pleural LDH 77 U/L 12/03/23 Unknown Pleural Glucose 121.0 mg/dL 12/03/23 Unknown Pleural Amylase 35 U/L 12/03/23 Unknown Pleural Triglycerides 33 mg/dL 12/03/23 Unknown SARS-CoV-2 Ag (Rapid) negative (Negative) 12/02/23 15:11 Blood Type A Positive 12/04/23 20:42 Rho(D) Type Rh positive 12/04/23 20:42 Antibody Screen Negative 12/04/23 20:42 A&P Assessment and plan (1) Chronic atrial fibrillation: May continue on the Cardizem 60 mg every 12 hours. Will closely monitor the telemetry. (2) Mitral regurgitation: Patient had moderately severe eccentric mitral regurgitation by transthoracic echocardiogram. She may require a LISA to better evaluate the mitral regurgitation. Qualifiers: Cardiac valve disease etiology: nonrheumatic Qualified Code(s): I34.0 - Nonrheumatic mitral (valve) insufficiency (3) Aortic stenosis: The patient seems to have low gradient normal flow aortic valve stenosis. Qualifiers: Cardiac valve disease etiology: nonrheumatic Qualified Code(s): I35.0 - Nonrheumatic aortic (valve) stenosis (4) Congestive heart failure: Patient seems to have intermittent decompensation of the chronic diastolic heart failure. Currently she seems to be compensated. Qualifiers: Heart failure chronicity: chronic Heart failure type: diastolic Qualified Code(s): I50.32 - Chronic diastolic (congestive) heart failure (5) Moderate pulmonary hypertension: The estimated pulmonary artery peak systolic pressure was around 65 mmHg based on echocardiogram. Continue the Cardizem as mentioned above (6) Essential (primary) hypertension: Currently normotensive. (7) Mixed hyperlipidemia: Continue on the current management Plan Other problems are High BUN/creatinine ratio Mild anemia Mild hyperkalemia Patient may require an event monitor when she is discharged to monitor the heart rate at home. Continue on the current measures for the time being Attestations 2 Medical Necessity Statement*: Disposition as per the primary Coding Level of Care Code 71480 Diagnoses Chronic atrial fibrillation I48.20 Nonrheumatic mitral valve regurgitation I34.0 Cardiac valve disease etiology: nonrheumatic Nonrheumatic aortic valve stenosis I35.0 Cardiac valve disease etiology: nonrheumatic Chronic diastolic congestive heart failure I50.32 Heart failure chronicity: chronic Heart failure type: diastolic Moderate pulmonary hypertension I27.20 Essential (primary) hypertension I10 Mixed hyperlipidemia E78.2
[2023-12-09] MEDS: meropenem 1,000 MG in sodium chloride 0.9% (plus) 50 ML 100 MG IV ×2 (10:12→21:29)
[2023-12-09] MEDS: acetaminophen 325 mg Tablet 650 MG PO ×2 (13:46→21:27)
--- NOTE | 2023-12-09 15:48 | P.PN_ITS ---
Subjective 2 Subjective: Patient was seen this morning, she is currently working with physical therapy she alert oriented x 3, following all commands, heart rates in the low 110s, atrial fibrillation, denies any chest pain, shortness of breath no abdominal pain she continues to have complaints of generalized weakness, Vitals/I&O/Wt Last Vital Signs Temp 97.5 F L 12/09/23 11:08 Pulse 104 H 12/09/23 14:06 Resp 20 H 12/09/23 13:56 BP 120/85 12/09/23 11:08 Pulse Ox 94 12/09/23 13:56 O2 Del Method Nasal Cannula 12/09/23 13:56 O2 Flow Rate 4 12/09/23 13:56 FiO2 40 12/09/23 03:40 12/09/23 12/09/23 12/09/23 06:59 14:59 22:59 Intake Total 410 / 410 Output Total 950 / 1250 Balance -950 / -910 410 / 410 Weight last 48 hrs Weight 92.533 kg Weight 92.788 kg Physical Exam 2 Const: COMMON NORMALS: no acute distress and patient oriented x3 Resp: COMMON NORMALS: normal respiratory effort, No retractions, No use of accessory muscles and clear to auscultation bilaterally AUSCULTATION: clear to auscultation bilaterally Cardio: COMMON NORMALS: S1 normal heart sound present and S2 normal heart sound present RATE: tachycardic RHYTHM: abnormal rhythm irregularly irregular HEART SOUNDS: S1 normal heart sound present and S2 normal heart sound present GI: COMMON NORMALS: Normal to inspection, nondistended, normoactive bowel sounds present and non-tender Extremity: COMMON NORMALS: no pedal edema Neuro: COMMON NORMALS: patient oriented x3 Psych: COMMON NORMALS: mental status grossly normal Urinary Catheter Management: Vázquez: Cath Placed During This Visit: yes Reason for Continuing Indwelling Catheter: Other Urinary Catheter Date of Insertion: 12/02/23 Urinary Catheter Time of Insertion: 17:28 Data 12/09/23 02:26 12/09/23 02:26 A&P Assessment and plan (1) Acute exacerbation of CHF (congestive heart failure): Qualifiers: Heart failure type: diastolic Qualified Code(s): I50.33 - Acute on chronic diastolic (congestive) heart failure (2) Acute respiratory failure with hypoxemia: (3) Acute on chronic kidney failure: Qualifiers: Acute renal failure type: unspecified Chronic kidney disease stage: u nspecified stage Qualified Code(s): N17.9 - Acute kidney failure, unspecified; N18.9 - Chronic kidney disease, unspecified (4) Chronic respiratory failure: Qualifiers: Respiratory failure complication: unspecified whether with hypoxia or hypercapnia Qualified Code(s): J96.10 - Chronic respiratory failure, unspecified whether with hypoxia or hypercapnia (5) Mitral regurgitation: Qualifiers: Cardiac valve disease etiology: nonrheumatic Qualified Code(s): I34.0 - Nonrheumatic mitral (valve) insufficiency (6) Moderate pulmonary hypertension: (7) Aortic stenosis: Qualifiers: Cardiac valve disease etiology: nonrheumatic Qualified Code(s): I35.0 - Nonrheumatic aortic (valve) stenosis (8) Atrial fibrillation with rapid ventricular response: (9) Aspiration pneumonia: (10) Acute on chronic respiratory failure with hypoxia and hypercapnia: (11) Pulmonary hypertension: Plan Acute hypoxic hypercarbic respiratory failure ? Likely secondary to CHF exacerbation, aortic stenosis, A-fib with RVR ? Diastolic CHF exacerbation, BNP 35286, resolving ? With concerns for underlying silent aspiration, aspiration pneumonia, resolving ? During last hospitalization, patient had thick mucus secretions around left bronchial tree, with complete opacification of left lung, she also has right hemidiaphragmatic elevation, -Initially in mild to moderate respiratory distress and his cardiac stepdown unit, this afternoon much more comfortable in intensive care unit ? Status post thoracocentesis, 1 L removed, so far Gram stain within normal limits, pathology pending ? Plan, ? Moved to medical floors ?continue BiPAP during the night, scheduled during the day ? De-escalate to prednisone -Lasix 40 mg IV twice daily on hold as patient looks euvolemic ? Patient has severe aortic stenosis low gradient likely also playing a role ? A-fib with RVR also playing a role, back in A-fib with RVR, status post 1 dose p.o. 25 mg p.o. metoprolol, will switch to Cardizem 60 every 6h ? meropenem, continue for now as patient has penicillin allergy ? Monitor respiratory status closely, ? CODE STATUS full code Lovenox for DVT prophylaxis TANJA on CKD, creatinine 1.5, monitor, repeat BMP at 12 PM, normal saline 30 cc an hour, will consider discontinuing fluids based on clinical progress and risk of fluid overload Aortic stenosis, severe low gradient, likely also playing A-fib with RVR, now with tachybradycardia syndrome, hypotension ? Cardizem 60 every 6 ? 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 Peterson as outpatient Moderate pulm hypertension Right pleural effusion status post thoracocentesis, 1 L removed, cultures so far negative Chronic right diaphragm elevation Left hip 1. Acute, nondisplaced but impacted LEFT hip subcapital fracture with extension into the femoral neck. ? Status post Left hip closed reduction and percutaneous screw fixation Plan ? pt/ot ? Ultram for pain control ? PT OT Full code ? SCDs for DVT prophylaxis, eliquis Status is stable, ? Spoke to nursing staff, spoke to cardiology, spoke to nursing staff Plan for today creatinine has improved to 1.5, off fluids, continue PT OT, heart rate control increase Cardizem to 60 every 6, spoke to cardiology, spoke to nursing staff spoke to physical therapy, continue to monitor closely plan on discharging in the next 24 hours, coutinue meropenem Attestations 2 Medical Necessity Statement*: Patient requires hospitalization for A-fib with RVR, requiring heart rate control, hip fracture, requiring PT OT, respiratory failure aspiration requiring meropenem Diagnoses Acute on chronic diastolic congestive heart failure I50.33 Heart failure type: diastolic Acute respiratory failure with hypoxemia J96.01 Acute renal failure superimposed on chronic kidney disease, unspecified acute renal failure type, unspecified CKD stage N17.9; N18.9 Acute renal failure type: unspecified Chronic kidney disease stage: unspecified stage Chronic respiratory failure, unspecified whether with hypoxia or hypercapnia J96.10 Respiratory failure complication: unspecified whether with hypoxia or hypercapnia Nonrheumatic mitral valve regurgitation I34.0 Cardiac valve disease etiology: nonrheumatic Moderate pulmonary hypertension I27.20 Nonrheumatic aortic valve stenosis I35.0 Cardiac valve disease etiology: nonrheumatic Atrial fibrillation with rapid ventricular response I48.91 Aspiration pneumonia J69.0 Acute on chronic respiratory failure with hypoxia and hypercapnia J96.21; J96.22 Pulmonary hypertension I27.20
[2023-12-09] MEDS: magnesium hydroxide 30 mL UDC PO (15:59)
[2023-12-10] VITALS (13 sets, daily range): BP systolic 104–152; BP diastolic 70–120; PULSE 88–117; RESP 17–24; TEMP 36.3–37.1; O2SAT 91–99
[2023-12-10] MEDS: ipratropium-albuterol 3 mL Neb INHALATION ×2 (01:47→19:57)
[2023-12-10] MEDS: dilTIAZem 30 mg Tablet 60 MG PO ×4 (02:14→20:54)
[2023-12-10 04:37] LABS: Basophils % 0.1 %; Hematocrit 34.5 % (36-47); Lymphocytes # 0.6 10^3/uL (0.8-4.8); Lymphocytes % 4.6 %; Mean Corpuscular HGB Conc 29.9 g/dL (30-55); Mean Corpuscular Hemoglobin 27.8 pg (27-33); Monocytes # 0.9 10^3/uL (0.2-0.9); Monocytes % 6.7 %; Neutrophils # 11.87 10^3/uL (1.8-7.7); Neutrophils % 87.7 %; Nucleated Red Blood Cells % 0 %; Platelet Count 248 10^3/cmm (157-399); Red Blood Count 3.71 10^6/uL (3.85-5.65); Red Cell Distribution Width 15.4 % (12.1-15.1); White Blood Count 13.52 10^3/uL (3.29-11.43)
[2023-12-10 04:57] LABS: Alanine Aminotransferase 24 U/L (0-33); Albumin Level 3.5 g/dL (3.5-5.2); Alkaline Phosphatase 86 U/L (35-105); Anion Gap 12.5 (5-19); Aspartate Amino Transferase 18 U/L (0-32); Blood Urea Nitrogen 60 mg/dL (8-23); Calcium 7.8 mg/dL (8.5-10.5); Carbon Dioxide 30 mmol/L (22-29); Chloride 104 mmol/L (98-107); Creatinine Clr Calc Pharmacy 31.7864; Globulin 1.7 g/dL (1.3-4.6); Glucose 138 mg/dL (65-115); Magnesium 2.4 mg/dL (1.7-2.3); Osmolality Calculated 311 mOsm/kg (285-295); Phosphorus 4.3 mg/dL (2.5-4.5); Potassium 5.5 mmol/L (3.5-5.1); Sodium 141 mmol/L (136-145); Total Bilirubin 0.5 mg/dL (0.15-1.2); Total Protein 5.2 g/dL (6.6-8.7)
[2023-12-10 05:02] LABS: NT Pro B Type Natriuretic Pept 3719 pg/mL (0-450)
[2023-12-10] MEDS: apixaban 5 mg Tablet 2.5 MG PO ×2 (05:52→18:38)
[2023-12-10] MEDS: acetaminophen 325 mg Tablet 650 MG PO (05:52)
[2023-12-10] MEDS: TRAMadol 50 mg Tablet 25 MG PO (05:52)
[2023-12-10] MEDS: levothyroxine 112 mcg Tablet PO (05:52)
[2023-12-10] MEDS: nystatin 100,000 unit/mL UDC 5 mL 100000 UNIT PO ×4 (08:24→20:54)
[2023-12-10] MEDS: pantoprazole DR 40 mg Tablet PO (08:25)
[2023-12-10] MEDS: atorvastatin 40 mg Tablet 20 MG PO (08:25)
[2023-12-10] MEDS: predniSONE 20 mg Tablet 40 MG PO (08:27)
--- NOTE | 2023-12-10 08:31 | P.PN_ITS ---
Subjective 2 Subjective: Patient says she is feeling well. Atrial fibrillation is uncontrolled. Vitals/I&O/Wt Last Vital Signs Temp 97.9 F 12/10/23 07:40 Pulse 103 H 12/10/23 07:40 Resp 17 12/10/23 07:40 BP 104/71 12/10/23 07:40 Pulse Ox 94 12/10/23 07:40 O2 Del Method Nasal Cannula 12/10/23 07:40 O2 Flow Rate 4 12/09/23 20:00 FiO2 40 12/10/23 04:30 12/09/23 12/10/23 12/10/23 22:59 06:59 14:59 Intake Total 1790 / 2200 Output Total 1420 / 1420 100 / 1520 Balance 370 / 780 -100 / 680 Weight last 48 hrs Weight 213 lb 3 oz Weight 204 lb Physical Exam 2 Narrative: GENERAL: Patient is alert, awake and oriented x3. [] NECK: No jugular vein distension. [] HEENT: No cyanosis. No icterus. No pallor. [] HEART: Irregularly irregular, tachycardia, grade 3/6 systolic murmur LUNGS: Clear to auscultate bilaterally. [] CENTRAL NERVOUS SYSTEM: Grossly nonfocal. [] EXTREMITIES: Lower extremities with 1+ edema bilaterally. Urinary Catheter Management: Vázquez: Cath Placed During This Visit: yes Reason for Continuing Indwelling Catheter: Other Urinary Catheter Date of Insertion: 12/02/23 Urinary Catheter Time of Insertion: 17:28 Data 12/11/23 03:19 12/11/23 03:19 A&P Assessment and plan (1) Chronic atrial fibrillation: (2) Mitral regurgitation: Qualifiers: Cardiac valve disease etiology: nonrheumatic Qualified Code(s): I34.0 - Nonrheumatic mitral (valve) insufficiency (3) Aortic stenosis: Qualifiers: Cardiac valve disease etiology: nonrheumatic Qualified Code(s): I35.0 - Nonrheumatic aortic (valve) stenosis (4) Congestive heart failure: Qualifiers: Heart failure chronicity: chronic Heart failure type: diastolic Qualified Code(s): I50.32 - Chronic diastolic (congestive) heart failure (5) Moderate pulmonary hypertension: (6) Essential (primary) hypertension: (7) Mixed hyperlipidemia: Plan Patient went into A-fib with RVR. Start amiodarone gtt. Continue Eliquis and cardizem Telemonitoring Creatinine improving. Contninue to monitor Patient will need LISA. Currently arranged as outpatient. Thank you for involving us with care of this patient. we will continue to follow. Please call with questions Attestations 2 Medical Necessity Statement*: Care expected to cross 2 midnights. Coding Level of Care Code Acute Code for Chg Fwd Diagnoses Chronic atrial fibrillation I48.20 Nonrheumatic mitral valve regurgitation I34.0 Cardiac valve disease etiology: nonrheumatic Nonrheumatic aortic valve stenosis I35.0 Cardiac valve disease etiology: nonrheumatic Chronic diastolic congestive heart failure I50.32 Heart failure chronicity: chronic Heart failure type: diastolic Moderate pulmonary hypertension I27.20 Essential (primary) hypertension I10 Mixed hyperlipidemia E78.2
[2023-12-10] MEDS: meropenem 1,000 MG in sodium chloride 0.9% (plus) 50 ML 100 MG IV ×2 (09:53→22:47)
[2023-12-10] MEDS: sodium polystyrene sulfonate 15 gm/60 mL Btl PO (09:53)
--- NOTE | 2023-12-10 10:10 | PC.SOCIAL ---
IMM Update pg 2 of IMM updated and reviewed w/ patient. Copy provided and Copy dated, initialed and placed in chart.
[2023-12-10 11:01] LABS: SARS Covid-2 Antigen negative (Negative)
[2023-12-10] MEDS: metoprolol tartrate 25 mg Tablet PO (11:48)
--- NOTE | 2023-12-10 14:13 | PC.NURSE ---
This nurse called report to [facility] and spoke to VIBHA Diaz.
[2023-12-10 15:10] LABS: Anion Gap 14.3 (5-19); Blood Urea Nitrogen 55 mg/dL (8-23); Calcium 7.8 mg/dL (8.5-10.5); Carbon Dioxide 31 mmol/L (22-29); Chloride 99 mmol/L (98-107); Creatinine Clr Calc Pharmacy 37.5696; Glucose 124 mg/dL (65-115); Osmolality Calculated 305 mOsm/kg (285-295); Potassium 5.3 mmol/L (3.5-5.1); Sodium 139 mmol/L (136-145)
[2023-12-10 15:16] LABS: Procalcitonin 0.09 ng/mL (0-0.5)
--- NOTE | 2023-12-10 15:37 | P.PN_ITS ---
Subjective 2 Subjective: Was seen this morning, at bedside, she she at 1 point was sitting on the commode, she tells me she has better strength, no shortness of breath unfortunately her heart rates are in the 130s, A-fib with RVR, she had received Cardizem and I gave her a bit time to see if her heart rates would improve, however she remains in the 130s A-fib with RVR she was given 25 mg of p.o. metoprolol however she continues to remain in A-fib with RVR I had a detailed discussion with Dr. Farmer my concerns for tachybradycardia syndrome, at times she would be comes quite bradycardic, with soft blood pressures, but at other times she becomes tachycardic such as now, and having difficulty controlling her heart rates and her blood pressures, especially as she has had hip surgery, and she is prone to having lower blood pressures, we discussed moving patient down to CSU if heart rates remain in the 130s for amiodarone and amiodarone bolus, patient continues to be in the 130s, A-fib with RVR, by the afternoon, move patient down to CCU started on amiodarone drip with amiodarone bolus, Vitals/I&O/Wt Last Vital Signs Temp 97.3 F L 12/10/23 11:46 Pulse 113 H 12/10/23 11:46 Resp 17 12/10/23 11:46 BP 145/83 12/10/23 11:46 Pulse Ox 95 12/10/23 11:46 O2 Del Method Nasal Cannula 12/10/23 11:46 O2 Flow Rate 4 12/10/23 08:00 FiO2 40 12/10/23 04:30 12/10/23 12/10/23 12/10/23 06:59 14:59 22:59 Intake Total 530 / 530 Output Total 100 / 1520 Balance -100 / 680 530 / 530 Weight last 48 hrs Weight 96.7 kg Weight 92.533 kg Physical Exam 2 Const: COMMON NORMALS: no acute distress and patient oriented x3 Resp: COMMON NORMALS: normal respiratory effort, No retractions, No use of accessory muscles and clear to auscultation bilaterally AUSCULTATION: clear to auscultation bilaterally Cardio: COMMON NORMALS: regular rate, S1 normal heart sound present and S2 normal heart sound present RATE: regular rate and tachycardic RHYTHM: a bnormal rhythm HEART SOUNDS: S1 normal heart sound present and S2 normal heart sound present GI: COMMON NORMALS: Normal to inspection, nondistended, normoactive bowel sounds present and non-tender Extremity: COMMON NORMALS: no pedal edema Neuro: COMMON NORMALS: patient oriented x3 Psych: COMMON NORMALS: mental status grossly normal Urinary Catheter Management: Vázquez: Cath Placed During This Visit: yes, but has since been removed by the nurse Reason for Continuing Indwelling Catheter: Decision to DC Catheter Urinary Catheter Date of Insertion: 12/02/23 Urinary Catheter Time of Insertion: 17:28 Date Urinary Catheter Removed: 12/10/23 Time Urinary Catheter Discontinued: 12:53 Data 12/10/23 04:02 12/10/23 14:30 A&P Assessment and plan (1) Acute exacerbation of CHF (congestive heart failure): Qualifiers: Heart failure type: diastolic Qualified Code(s): I50.33 - Acute on chronic diastolic (congestive) heart failure (2) Acute respiratory failure with hypoxemia: (3) Acute on chronic kidney failure: Qualifiers: Acute renal failure type: unspecified Chronic kidney disease stage: u nspecified stage Qualified Code(s): N17.9 - Acute kidney failure, unspecified; N18.9 - Chronic kidney disease, unspecified (4) Chronic respiratory failure: Qualifiers: Respiratory failure complication: unspecified whether with hypoxia or hypercapnia Qualified Code(s): J96.10 - Chronic respiratory failure, unspecified whether with hypoxia or hypercapnia (5) Mitral regurgitation: Qualifiers: Cardiac valve disease etiology: nonrheumatic Qualified Code(s): I34.0 - Nonrheumatic mitral (valve) insufficiency (6) Moderate pulmonary hypertension: (7) Aortic stenosis: Qualifiers: Cardiac valve disease etiology: nonrheumatic Qualified Code(s): I35.0 - Nonrheumatic aortic (valve) stenosis (8) Atrial fibrillation with rapid ventricular response: (9) Aspiration pneumonia: (10) Acute on chronic respiratory failure with hypoxia and hypercapnia: (11) Pulmonary hypertension: Plan Acute hypoxic hypercarbic respiratory failure ? Likely secondary to CHF exacerbation, aortic stenosis, A-fib with RVR ? Diastolic CHF exacerbation, BNP 16110, resolving ? With concerns for underlying silent aspiration, aspiration pneumonia, resolving ? During last hospitalization, patient had thick mucus secretions around left bronchial tree, with complete opacification of left lung, she also has right hemidiaphragmatic elevation, -Initially in mild to moderate respiratory distress and his cardiac stepdown unit, this afternoon much more comfortable in intensive care unit ? Status post thoracocentesis, 1 L removed, so far Gram stain within normal limits, pathology pending ? Plan, ? Due to A-fib with RVR moved to CSU ?continue BiPAP during the night, scheduled during the day ? De-escalate to prednisone -Patient looks euvolemic creatinine 1.3 hold off on further diuresis, but might require it with A-fib with RVR ? Patient has severe aortic stenosis low gradient likely also playing a role ? A-fib with RVR, on Cardizem 60 every 6 moved down to CCU started on Cardizem drip with bolus ? meropenem, continue for now as patient has penicillin allergy ? Monitor respiratory status closely, ? CODE STATUS full code Lovenox for DVT prophylaxis TANJA on CKD, creatinine 1.3 Hyperkalemia 1 dose Kayexalate Aortic stenosis, severe low gradient, likely also playing A-fib with RVR, now with tachybradycardia syndrome, hypotension ? Cardizem 60 every 6 ? 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 Peterson as outpatient Moderate pulm hypertension Right pleural effusion status post thoracocentesis, 1 L removed, cultures so far negative Chronic right diaphragm elevation Left hip 1. Acute, nondisplaced but impacted LEFT hip subcapital fracture with extension into the femoral neck. ? Status post Left hip closed reduction and percutaneous screw fixation Plan ? pt/ot ? Ultram for pain control ? PT OT Full code ? SCDs for DVT prophylaxis, eliquis Status is stable, ? Spoke to nursing staff, spoke to cardiology, spoke to nursing staff Plan for today creatinine h down to 1.3 continue meropenem, monitor heart rates, moved out to CSU started on amiodarone bolus with amiodarone drip, for A-fib with RVR, soft blood pressures, spoke to patient spoke to nursing staff spoke to cardiology reviewed blood work, reviewed EKG reviewed telemetry monitoring, ordered repeat BMP to monitor potassium levels given Kayexalate repeat blood work in the morning CBC CMP Attestations 2 Medical Necessity Statement*: Patient requires hospitalization for A-fib with RVR heart rates in 130s to 140s requiring amiodarone bolus and amiodarone drip moving down to CSU hyperkalemia requiring Kayexalate, TANJA improving, aspiration pneumonia requiring meropenem Diagnoses Acute on chronic diastolic congestive heart failure I50.33 Heart failure type: diastolic Acute respiratory failure with hypoxemia J96.01 Acute renal failure superimposed on chronic kidney disease, unspecified acute renal failure type, unspecified CKD stage N17.9; N18.9 Acute renal failure type: unspecified Chronic kidney disease stage: unspecified stage Chronic respiratory failure, unspecified whether with hypoxia or hypercapnia J96.10 Respiratory failure complication: unspecified whether with hypoxia or hypercapnia Nonrheumatic mitral valve regurgitation I34.0 Cardiac valve disease etiology: nonrheumatic Moderate pulmonary hypertension I27.20 Nonrheumatic aortic valve stenosis I35.0 Cardiac valve disease etiology: nonrheumatic Atrial fibrillation with rapid ventricular response I48.91 Aspiration pneumonia J69.0 Acute on chronic respiratory failure with hypoxia and hypercapnia J96.21; J96.22 Pulmonary hypertension I27.20
[2023-12-10] MEDS: amiodarone 150 MG/100 ML PREMIX 400 MG IV (16:19)
[2023-12-11] VITALS (21 sets, daily range): BP systolic 106–148; BP diastolic 59–107; PULSE 75–113; RESP 12–28; TEMP 36.6–37; O2SAT 83–100; BMI 37.8
[2023-12-11] MEDS: ipratropium-albuterol 3 mL Neb INHALATION ×4 (01:28→20:14)
[2023-12-11] MEDS: dilTIAZem 30 mg Tablet 60 MG PO ×2 (02:59→09:21)
[2023-12-11 04:15] LABS: Basophils % 0.1 %; Eosinophils % 0.1 %; Hematocrit 35.4 % (36-47); Lymphocytes # 0.7 10^3/uL (0.8-4.8); Lymphocytes % 6.1 %; Mean Corpuscular HGB Conc 29.7 g/dL (30-55); Mean Platelet Volume 10.8 fL (7.4-10.4); Monocytes # 0.8 10^3/uL (0.2-0.9); Monocytes % 6.5 %; Neutrophils # 10.02 10^3/uL (1.8-7.7); Neutrophils % 86.3 %; Nucleated Red Blood Cells % 0 %; Platelet Count 242 10^3/cmm (157-399); Red Blood Count 3.89 10^6/uL (3.85-5.65); Red Cell Distribution Width 15.4 % (12.1-15.1); White Blood Count 11.62 10^3/uL (3.29-11.43)
[2023-12-11 04:24] LABS: Alanine Aminotransferase 18 U/L (0-33); Albumin Level 3.4 g/dL (3.5-5.2); Alkaline Phosphatase 79 U/L (35-105); Aspartate Amino Transferase 16 U/L (0-32); Blood Urea Nitrogen 50 mg/dL (8-23); Calcium 7.4 mg/dL (8.5-10.5); Carbon Dioxide 32 mmol/L (22-29); Chloride 100 mmol/L (98-107); Creatinine Clr Calc Pharmacy 34.8861; Globulin 2.1 g/dL (1.3-4.6); Glucose 117 mg/dL (65-115); Magnesium 2.4 mg/dL (1.7-2.3); Osmolality Calculated 302 mOsm/kg (285-295); Phosphorus 3.7 mg/dL (2.5-4.5); Sodium 139 mmol/L (136-145); Total Bilirubin 0.5 mg/dL (0.15-1.2); Total Protein 5.5 g/dL (6.6-8.7)
[2023-12-11 04:30] LABS: NT Pro B Type Natriuretic Pept 2291 pg/mL (0-450)
[2023-12-11] MEDS: apixaban 5 mg Tablet 2.5 MG PO ×2 (05:49→17:22)
[2023-12-11] MEDS: levothyroxine 112 mcg Tablet PO (05:50)
--- NOTE | 2023-12-11 05:58 | P.PN_ITS ---
Subjective 2 Subjective: Heart rate is better at rest Vitals/I&O/Wt Last Vital Signs Temp 98.8 F 12/10/23 20:57 Pulse 83 12/11/23 04:15 Resp 14 12/11/23 01:28 BP 128/90 12/11/23 05:00 Pulse Ox 96 12/11/23 04:15 O2 Del Method BiPAP 12/11/23 01:28 O2 Flow Rate 4 12/10/23 19:58 FiO2 40 12/11/23 04:15 12/10/23 12/10/23 12/11/23 14:59 22:59 06:59 Intake Total 530 / 530 200 / 730 50 / 780 Balance 530 / 530 200 / 730 50 / 780 Weight last 48 hrs Weight 213 lb 3 oz Weight 204 lb Physical Exam 2 Narrative: GENERAL: Patient is alert, awake and oriented x3. [] NECK: No jugular vein distension. [] HEENT: No cyanosis. No icterus. No pallor. [] HEART: Irregularly irregular, tachycardia, grade 3/6 systolic murmur LUNGS: Clear to auscultate bilaterally. [] CENTRAL NERVOUS SYSTEM: Grossly nonfocal. [] EXTREMITIES: Lower extremities with 1+ edema bilaterally. Urinary Catheter Management: Vázquez: Cath Placed During This Visit: yes, but has since been removed by the nurse Reason for Continuing Indwelling Catheter: Decision to DC Catheter Urinary Catheter Date of Insertion: 12/02/23 Urinary Catheter Time of Insertion: 17:28 Date Urinary Catheter Removed: 12/10/23 Time Urinary Catheter Discontinued: 12:53 Data 12/11/23 03:19 12/12/23 03:45 A&P Assessment and plan (1) Moderate pulmonary hypertension: (2) Atrial fibrillation with rapid ventricular response: (3) Tachycardia-bradycardia syndrome: (4) Chronic atrial fibrillation: (5) Mitral regurgitation: Qualifiers: Cardiac valve disease etiology: nonrheumatic Qualified Code(s): I34.0 - Nonrheumatic mitral (valve) insufficiency (6) Aortic stenosis: Qualifiers: Cardiac valve disease etiology: nonrheumatic Qualified Code(s): I35.0 - Nonrheumatic aortic (valve) stenosis (7) Congestive heart failure: Qualifiers: Heart failure chronicity: chronic Heart failure type: diastolic Qualified Code(s): I50.32 - Chronic diastolic (congestive) heart failure (8) Essential (primary) hypertension: (9) Mixed hyperlipidemia: Plan Continue amiodarone. Continue Eliquis and Cardizem. Outpatient LISA Thank you for involving us with care of this patient. we will continue to follow. Please call with questions Attestations 2 Medical Necessity Statement*: Care expected to cross 2 midnights. Coding Level of Care Code Acute Code for g Fwd Diagnoses Moderate pulmonary hypertension I27.20 Atrial fibrillation with rapid ventricular response I48.91 Tachycardia-bradycardia syndrome I49.5 Chronic atrial fibrillation I48.20 Nonrheumatic mitral valve regurgitation I34.0 Cardiac valve disease etiology: nonrheumatic Nonrheumatic aortic valve stenosis I35.0 Cardiac valve disease etiology: nonrheumatic Chronic diastolic congestive heart failure I50.32 Heart failure chronicity: chronic Heart failure type: diastolic Essential (primary) hypertension I10 Mixed hyperlipidemia E78.2
--- NOTE | 2023-12-11 07:00 | XR_ITS ---
WS: [id number] Exam: XR chest 1V portable [id number] Date/Time of Exam: 12/11/2023 7:00 AM Reason For Exam: sob Comparison 12/08/2023. Again noted is prominent RIGHT basal pleural effusion with compressive atelectasis of the middle and lower lobes of the RIGHT lung. This has increased slightly. LEFT lung is clear and fully expanded. Th e heart is enlarged. Single sclerotic lower thoracic vertebra as previously described. Neurostimulato r electrodes in the mid and lower thoracic spine. The mediastinum is normal in contour. No pneumothor ax. Surgical clips along the LEFT axilla. Old proximal RIGHT humeral fracture. IMPRESSION: 1. Persistent large RIGHT basal pleural effusion. 2. Mild cardiac enlargement unchanged. 3. Additional chronic findings as discussed above.
[2023-12-11] MEDS: meropenem 1,000 MG in sodium chloride 0.9% (plus) 50 ML 100 MG IV (09:20)
[2023-12-11] MEDS: nystatin 100,000 unit/mL UDC 5 mL 100000 UNIT PO ×4 (09:20→21:33)
[2023-12-11] MEDS: atorvastatin 40 mg Tablet 20 MG PO (09:21)
[2023-12-11] MEDS: amiodarone 200 mg Tablet 400 MG PO ×2 (09:21→17:21)
[2023-12-11] MEDS: predniSONE 20 mg Tablet 40 MG PO (09:21)
[2023-12-11] MEDS: pantoprazole DR 40 mg Tablet PO (09:22)
--- NOTE | 2023-12-11 09:22 | PC.CHAP ---
Pastoral Care Encounter/Spiritual Assessment Type of Contact [] Declined clothes shaker visit [] Patient/Family/Request visit [] Outpatient visit [] Follow-up visit [] Physician referral [] Code/Alert [x] Routine visit [] Staff referral [] Actively dying [] Patient sleeping [x] Family support [] [] Out of room [] Palliative care [] [] Receiving care in room [] Pre-surgical visit [] Trauma [] Long length of stay [] ICU visit [] Other: Relational/Emotional Strength [x] Patient feels connected with others/family/visitors/staff [] Distress [] Loneliness/isolation [] Abandonment Spirituality of Patient [x] Person of Cynthia [] Attends Jew of their Cynthia [x] Believes in Prayer [] Reads Bible or Zoroastrian materials [] There are Spiritual issues to be addressed Social Problems Specialist Interventions [x] Prayer [x] Active listening [] Non-anxious presence [x] Spiritual/emotional support [] Crisis/trauma care [] Spiritual counseling [] Bereavement support [] Provided bereavement packet [] Provided Bible/devotional materials [] Provided toy/stuffed animal, coloring book to patient or family member [] Provided Communion [] Anointing/[place] [] Salvation [x] Completed spiritual assessment [] Other: Impact on Illness or Injury [] Angry [] Fearful [] Anxious [] Often cries [] Exhaustion [] Unable to work [] Unable to attend mandaeism [] Unable to walk/stand [] Unable to read [] Unable to drive [] Unable to eat/drink [] Unable to sleep [] Unable to be with family [] Patient intubated [] Other: Summary Time spent with patient 5 min
--- NOTE | 2023-12-11 10:34 | PC.NURSE ---
wound assessment pt has left upper lateral hip incision, more drainage noted on dressing, no increase swelling or redness noted, tenderness noted to the touch per pt. informed dr anglin at bedside.
--- NOTE | 2023-12-11 12:30 | PC.NURSE ---
notified dr tripp pt wound dressing on left lateral hip area is saturated with moderate bloody drainage. received order via tel to change dressing prn if dressing is saturated with silverlon dressing.
--- NOTE | 2023-12-11 13:02 | P.DS_ITS ---
Discharge Providers Date of Admission: 12/02/23 16:55 Date of Discharge: December 11, 2023 Attending Provider at Admission: Rolan Kong DO Attending Provider at Discharge: Dilan Rivero MD Primary Care Provider: Jo Ledezma MD Diagnoses at Discharge Discharge Diagnosis (1) Chronic atrial fibrillation: Status: Acute (2) Mitral regurgitation: Status: Acute Qualifiers: Cardiac valve disease etiology: nonrheumatic Qualified Code(s): I34.0 - Nonrheumatic mitral (valve) insufficiency (3) Aortic stenosis: Status: Acute Qualifiers: Cardiac valve disease etiology: nonrheumatic Qualified Code(s): I35.0 - Nonrheumatic aortic (valve) stenosis (4) Congestive heart failure: Status: Acute Qualifiers: Heart failure chronicity: chronic Heart failure type: diastolic Qualified Code(s): I50.32 - Chronic diastolic (congestive) heart failure (5) Moderate pulmonary hypertension: Status: Acute (6) Essential (primary) hypertension: Status: Acute (7) Mixed hyperlipidemia: Status: Acute Reason for Visit Reason for Visit: SOB Hospital Course Hospital Course Kelley Quezada is a 83 year old female lung disease and prolonged hospitalization August 27, 2019-09 09 2023. There she was diagnosed with pneumonia complete right-sided consolidation on chest x-rays she was diagnosed with atrial fibrillation. Bronchoscopy on 09/04/2023 showed multiple mucous secretions and tracheobronchial malacia determined by bronchoscopy. Reportedly she has done well since then. However she has developed more shortness of breath over the last few days. In the emergency room she is found to have a pH of 7.1. She was increased to 4 L and she appears improved. It was felt she needed to be admitted for acute on chronic respiratory failure On my assessment based on clinical exam and BN P she has clinically significant CHF. While I realize her echocardiogram showed a normal EF previously the patient is in A-fib with RVR and she is clearly unable to tolerate this heart rate. I advised admission to [facility] for CHF treatment Patient had a complicated prolonged hospitalization, please look at my last progress note for detail Patient was admitted to [facility] for acute hypoxic hypercarbic respiratory failure secondary to CHF, aortic stenosis, A-fib with RVR, with silent aspiration, aspiration pneumonia, requiring ICU admission, IV diuresis, heart rate controlled BiPAP therapy required thoracocentesis 1 L removed, manage on broad-spectrum antibiotic therapy. In terms of patient's aspiration pneumonitis, aspiration pneumonia, she has completed meropenem as inpatient. Patient has a chronic history of silent a spiration, history of right hemidiaphragmatic elevation, history of opacification of right lung, we have had a detailed discussion about her recurrent risk of aspiration pneumonia aspiration pneumonitis, morbidity mortality associated. She voices understanding, all questions answered, continue dysphagia level 6 diet, work with speech therapy at jail facility, she should continue BiPAP at jail facility during the night, as needed during the day, can use Mucomyst and N-acetylcysteine as needed For her fluid overload received IV diuresis overall clinically improved For A-fib with RVR, issues with tachybradycardia syndrome and hypotension, initially managed on beta-blockers with calcium channel blockers however developed bradycardia and hypotension, was then switched over to calcium channel blockers continue to have episodes of A-fib with RVR eventually transition to amiodarone, tolerated amiodarone, heart rates under control, transitioned off amiodarone drip, to p.o. amiodarone. Will be discharged on amiodarone taper with Cardizem 360 mg daily, discharged with event monitor with close follow-up with cardiology. Discharge on Eliquis 2.5 mg twice daily, given her TANJA on CKD We had a detailed discussion with patient about her goals of care given her moderate pulmonary hypertension, her aortic valve stenosis severe low gradient, this is likely playing a role due to her persistent shortness of breath, her A- fib which is difficult to control, will have her follow-up with cardiology as outpatient, for consideration of aortic valve replacement During patient's hospitalization she sustained a fall, and a left hip fracture, status post left hip closed reduction and percutaneous screw fixation by Dr. Bay, tolerated procedure well, received PT OT, pain control, overall clinically improved, discharged with pain control, Eliquis for DVT prophylaxis, with a close follow-up with Dr. 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 Peterson Physical Exam Const: COMMON NORMALS: no acute distress and patient oriented x3 Resp: COMMON NORMALS: normal respiratory effort, No retractions, No use of accessory muscles and clear to auscultation bilaterally AUSCULTATION: clear to auscultation bilaterally Cardio: COMMON NORMALS: regular rate, S1 normal heart sound present and S2 normal heart sound present RATE: regular rate RHYTHM: abnormal rhythm HEART SOUNDS: S1 normal heart sound present and S2 normal heart sound present GI: COMMON NORMALS: Normal to inspection, nondistended, normoactive bowel sounds present and non-tender Extremity: COMMON NORMALS: no pedal edema Neuro: COMMON NORMALS: patient oriented x3 Psych: COMMON NORMALS: mental status grossly normal Urinary Catheter Management: Vázquez: Cath Placed During This Visit: yes, but has since been removed by the nurse Reason for Continuing Indwelling Catheter: Decision to DC Catheter Urinary Catheter Date of Insertion: 12/02/23 Urinary Catheter Time of Insertion: 17:28 Date Urinary Catheter Removed: 12/10/23 Time Urinary Catheter Discontinued: 12:53 Discharge Data Studies Completed and Pending Completed Studies During Hospitalization Category Date Time Status CT chest wo con [id number] Stat Cat Scan 12/02/23 14:[address] head wo con* [id number] Routine Cat Scan 12/04/23 14:[address] hip LT wo con* [id number] Routine Cat Scan 12/04/23 14:[address] lumbar spine wo con* [id number] Routine Cat Scan 12/04/23 14:42 Completed CXRP [XR chest 1V portable [id number]] Routine Exams 12/03/23 15:15 Completed XR chest 1V portable [id number] Routine Exams 12/03/23 09:55 Completed XR chest 1V portable [id number] Routine Exams 12/04/23 07:00 Completed XR chest 1V portable [id number] Routine Exams 12/06/23 07:00 Completed XR chest 1V portable [id number] Routine Exams 12/08/23 08:16 Completed XR chest 1V portable [id number] Routine Exams 12/11/23 07:00 Completed XR chest 1V portable [id number] Stat Exams 12/02/23 14:12 Completed XR hip BI m 5V wo/w pel* [id number] Stat Exams 12/04/23 12:53 Completed XR hip LT 2-3V wo/w pel* [id number] Routine Exams 12/05/23 23:01 Completed Cytology [PTH] Routine Pth 12/03/23 00:11 Completed US thoracentesis [id number] Routine Ultrasound 12/03/23 00:11 Completed Pending at discharge Category Date Time Status Mycobacteria, Culture w/Fluor Routine Lab 12/03/23 Results Radiology Impressions Chest CT 12/02/23 14:44 IMPRESSION: 1. Large right-sided pleural effusion of uncertain etiology 2. Stable cardiomegaly 3. Stable sclerotic lesion involving the thoracic spine 4. Cholelithiasis Hip/Pelvis X-Ray 12/05/23 23:01 IMPRESSION: 1. Negative for acute bony abnormality. 2. Right hip arthroplasty changes. 3. Left hip 3 point pinning seen in place. Laboratory Results WBC 11.62 10^3/uL (3.29-11.43) H 12/11/23 03:19 RBC 3.89 10^6/uL (3.85-5.65) 12/11/23 03:19 Hgb 10.50 g/dL (11.27-16.99) L 12/11/23 03:19 Hct 35.4 % (36-47) L 12/11/23 03:19 MCV 91.0 fl (85-98) 12/11/23 03:19 MCH 27.0 pg (27-33) 12/11/23 03:19 MCHC 29.7 g/dL (30-55) L 12/11/23 03:19 RDW 15.4 % (12.1-15.1) H 12/11/23 03:19 Plt Count 242 10^3/cmm (157-399) 12/11/23 03:19 MPV 10.8 fL (7.4-10.4) H 12/11/23 03:19 Neut % (Auto) 86.3 % 12/11/23 03:19 Lymph % (Auto) 6.1 % 12/11/23 03:19 [place] % (Auto) 6.5 % 12/11/23 03:19 Eos % (Auto) 0.1 % 12/11/23 03:19 Baso % (Auto) 0.1 % 12/11/23 03:19 Neut # (Auto) 10.02 10^3/uL (1.8-7.7) H 12/11/23 03:19 Lymph # (Auto) 0.7 10^3/uL (0.8-4.8) L 12/11/23 03:19 [place] # (Auto) 0.8 10^3/uL (0.2-0.9) 12/11/23 03:19 Eos # (Auto) 0.0 10^3/uL (0.0-0.8) 12/11/23 03:19 Baso # (Auto) 0.0 10^3/uL (0.0-0.1) 12/11/23 03:19 Nucleated RBC % (auto) 0 % 12/11/23 03:19 Nucleated RBCs # 0.0 /100WBC 12/11/23 03:19 Differential Comment Yes 12/03/23 Unknown PT 16.60 SECONDS (12.1-14.9) H 12/02/23 14:57 INR 1.29 (0.8-1.2) H 12/02/23 14:57 Specimen Type Arterial 12/04/23 03:29 Sample Site Radial, left 12/04/23 03:29 ABG pH 7.34 (7.35-7.45) L 12/04/23 03:29 ABG pCO2 52.4 mmHg (35-45) H 12/04/23 03:29 ABG pO2 69.7 mmHg (80.0-100.0) L 12/04/23 03:29 ABG PO2/FiO2 Ratio 0 12/04/23 03:29 ABG HCO3 28.2 mmol/L (22-26) H 12/04/23 03:29 ABG O2 Saturation 95.6 12/02/23 15:21 ABG Base Excess 2.1 mmol/L (-2.0-2.0) H 12/04/23 03:29 Mikhail Test Pos 12/04/23 03:29 A-a O2 Gradient 10.1 mmHg (5-10) H 12/02/23 15:21 Hematocrit 23.3 % (37-47) L 12/04/23 03:29 Hgb O2 Saturation 94.2 % (95-100) L 12/02/23 15:21 Carboxyhemoglobin 0.9 %THgb (0.4-20.1) 12/02/23 15:21 Methemoglobin 0.5 % (0.4-1.5) 12/02/23 15:21 Total Hemoglobin 12.2 g/dL (12-16) 12/02/23 15:21 Sodium 143.0 mmol/L (131-143) 12/02/23 15:21 Potassium 4.6 mmol/L (3.5-5.0) 12/02/23 15:21 Glucose 142.0 mg/dL (70-115) H 12/02/23 15:21 Ionized Calcium 1.2 mmol/L (1.1-1.4) 12/02/23 15:21 O2 Delivery Device Nc 12/04/23 03:29 O2 Liters/Min 5.0 % 12/04/23 03:29 FiO2 40.0 % 12/04/23 03:29 Tidal Volume 0.42 12/03/23 03:55 PEEP 10.0 cmH20 12/03/23 03:55 Practice Assistant ID Alewe 12/04/23 03:29 Sodium 139 mmol/L (136-145) 12/11/23 03:19 Potassium 5.0 mmol/L (3.5-5.1) 12/11/23 03:19 Chloride 100 mmol/L (98-107) 12/11/23 03:19 Carbon Dioxide 32 mmol/L (22-29) H 12/11/23 03:19 Anion Gap 12.0 (5-19) 12/11/23 03:19 BUN 50 mg/dL (8-23) H 12/11/23 03:19 Creatinine 1.4 mg/dL (0.5-0.9) H 12/11/23 03:19 GFR Calculation Not Reportable 12/11/23 03:19 Glucose 117 mg/dL (65-115) H 12/11/23 03:19 POC Glucose 145 mg/dL (70-110) H 12/03/23 20:29 Calculated Osmolality 302 mOsm/kg (285-295) H 12/11/23 03:19 Lactic Acid 1.2 mmol/L (0.5-2.2) 12/02/23 14:57 Calcium 7.4 mg/dL (8.5-10.5) L 12/11/23 03:19 Phosphorus 3.7 mg/dL (2.5-4.5) 12/11/23 03:19 Magnesium 2.4 mg/dL (1.7-2.3) H 12/11/23 03:19 Total Bilirubin 0.5 mg/dL (0.15-1.2) 12/11/23 03:19 AST 16 U/L (0-32) 12/11/23 03:19 ALT 18 U/L (0-33) 12/11/23 03:19 Alkaline Phosphatase 79 U/L (35-105) 12/11/23 03:19 Creatine Kinase 35 U/L (26-192) 12/08/23 03:07 Troponin T Baseline 36 ng/L (0-10) H 12/07/23 12:15 Troponin T 120 Minute 36.22 ng/L (0-10) H 12/07/23 14:10 Delta Troponin T 0.22 ABS# (0-10) 12/07/23 14:10 Troponin T Hi Sens 6Hr 32.11 ng/L (0-10) H 12/07/23 18:14 Troponin T Hi Sens 6Hr Delta -3.89 ng/L (0-12) L 12/07/23 18:14 C-Reactive Protein 3.0 mg/L (0.0-4.9) 12/10/23 14:30 NT-Pro-B Natriuret Pep 2291 pg/mL (0-450) H 12/11/23 03:19 Total Protein 5.5 g/dL (6.6-8.7) L 12/11/23 03:19 Albumin 3.4 g/dL (3.5-5.2) L 12/11/23 03:19 Globulin 2.1 g/dL (1.3-4.6) 12/11/23 03:19 25-OH Vitamin D Total 44 ng/mL (30-100) 12/03/23 05:03 Procalcitonin 0.09 ng/mL (0-0.5) 12/10/23 14:30 Urine Color Colorless (Yellow) 12/02/23 19:14 Urine Appearance Clear (CLEAR) 12/02/23 19:14 Urine pH 5 (5-7) 12/02/23 19:14 Ur Specific [place] 1.005 (1.005-1.030) 12/02/23 19:14 Urine Protein Neg (Negative) 12/02/23 19:14 Urine Glucose (UA) Norm (Normal) 12/02/23 19:14 Urine Ketones Negative (Negative) 12/02/23 19:14 Urine Blood Trace (Negative) H 12/02/23 19:14 Urine Nitrate Negative (Negative) 12/02/23 19:14 Urine Bilirubin Neg (Negative) 12/02/23 19:14 Urine Urobilinogen Neg mg/dL (Negative) 12/02/23 19:14 Ur Leukocyte Esterase Negative (Negative) 12/02/23 19:14 Urine RBC 5-10 /hpf (0-2) H 12/02/23 19:14 Urine WBC 0-4 /hpf (0-5) H 12/02/23 19:14 Ur Squamous Epith Cells 0-4 /hpf (0-5) H 12/02/23 19:14 Amorphous Sediment Trace /hpf 12/02/23 19:14 Urine Bacteria Trace /hpf (NONE) 12/02/23 19:14 Hyaline Casts 0-4 /lpf H 12/02/23 19:14 Urine Mucus Trace /hpf 12/02/23 19:14 Fluid Color Yellow 12/03/23 Unknown Fluid Appearance Cloudy 12/03/23 Unknown Fluid WBC 716 /uL 12/03/23 Unknown Fluid RBC 2.000 10^3/uL 12/03/23 Unknown Fluid Hematocrit 0.0 % 12/03/23 Unknown Fld Polynuclear WBCs # 0.216 12/03/23 Unknown Fld Polynuclear WBCs % 30.200 % 12/03/23 Unknown Fl Mononucl WBCs #(Auto) 0.500 12/03/23 Unknown Fl Mononuclear % Auto 69.800 % 12/03/23 Unknown Fld Crystal Laterality Right 12/03/23 Unknown Fluid Albumin 2.0 g/dL 12/03/23 Unknown Fluid Creatinine 1.63 (0.5-0.9) H 12/03/23 Unknown Pleural pH 8.00 (6.5-7.5) H 12/03/23 Unknown Pleural Total Protein 2.8 g/dL 12/03/23 Unknown Pleural LDH 77 U/L 12/03/23 Unknown Pleural Glucose 121.0 mg/dL 12/03/23 Unknown Pleural Amylase 35 U/L 12/03/23 Unknown Pleural Triglycerides 33 mg/dL 12/03/23 Unknown SARS-CoV-2 Ag (Rapid) negative (Negative) 12/10/23 09:54 Blood Type A Positive 12/04/23 20:42 Rho(D) Type Rh positive 12/04/23 20:42 Antibody Screen Negative 12/04/23 20:42 Vitals Last Vital Signs Temp 98.1 F 12/11/23 11:51 Pulse 104 H 12/11/23 11:51 Resp 19 H 12/11/23 11:51 BP 122/78 12/11/23 11:51 Pulse Ox 97 12/11/23 11:51 O2 Del Method Nasal Cannula 12/11/23 11:51 O2 Flow Rate 3.5 12/11/23 07:57 FiO2 40 12/11/23 04:15 Discharge Plan Discharge Patient Disposition: Xfer SNF Condition: Stable Prescriptions: New tramadol 50 mg tablet 50 mg PO Q6H PRN (Reason: pain) 7 Days Qty: 28 0RF ondansetron 4 mg tablet,disintegrating 4 mg PO Q8H 3 Days Qty: 9 0RF Eliquis 5 mg Tablet 2.5 mg PO Q12H 30 Days Qty: 30 0RF Pacerone 200 mg Tablet See Rx Instructions .ROUTE .COMPLEX Qty: 60 0RF Rx Instructions: 2 tablets twice daily for 3 days, followed by 1 tab twice daily for 14 days, followed by 1 tab daily levothyroxine 112 mcg Tablet 112 mcg PO QAM 30 Days Qty: 30 0RF nystatin 100,000 unit/mL Suspension 100,000 unit PO QID 7 Days Qty: 28 0RF prednisone 20 mg Tablet 40 mg PO DAILY 3 Days Qty: 6 0RF diltiazem HCl 180 mg capsule,extended release 24hr 180 mg PO BID 30 Days Qty: 60 0RF acetylcysteine 100 mg/mL (10 %) solution 2 ml inhalation Q8H PRN (Reason: increased secretion) 30 Days Qty: 180 0RF Continued ondansetron HCl 4 mg tablet 4 mg PO Q6H PRN (Reason: nausea and vomiting) Qty: 30 0RF calcium carbonate [Calcium 600] 600 mg calcium (1,500 mg) tablet 600 mg PO DAILY letrozole 2.5 mg tablet 2.5 mg PO DAILY Qty: 30 0RF lovastatin 20 mg tablet 40 mg PO DAILY Qty: 60 3RF omeprazole 40 mg capsule,delayed release(DR/EC) 40 mg PO DAILY Discontinued Eliquis 5 mg tablet 5 mg PO Q12H 30 Days Qty: 60 12RF metoprolol tartrate 50 mg tablet 75 mg PO BID clonidine HCl 0.1 mg tablet 0.1 mg PO BID levothyroxine 125 mcg tablet 125 mcg PO QAM No Action (DME) portable oxygen at 2L via [place] See Rx Instructions .Route .MEDSUPPLY Qty: 1 0RF Rx Instructions: As directed (DME) chest vest See Rx Instructions .Route .MEDSUPPLY Qty: 1 0RF Rx Instructions: As directed Discharge Orders: Discharge Order (Routine); Ordered 12/11/23 Ordered By: Dilan Rivero Other Ambulatory Orders: MCT/Event Monitor 30 Days (Routine) Timeframe: 1 Day Facility: [facility] - Location: Radiology Ordered By: Dilan Rivero Referrals: [facility] [Outside] Piyush Lau MD [Physician] - 1 week Earl Bay DO [Physician] - 12/20/23 3:45 pm Jo Ledezma MD [Primary Care Provider] - Discharge Diet: As Directed Discharge Activity: Limit activity as instructed, Use walker/crutches as instruc aishwarya and As per PT/OT instructions Patient Instructions: Opioid Safety Activity Restrictions/Additional Instructions: Orthopedic discharge instructions: Patient may weight-bear as tolerated left lower extremity Change dressing as needed, keep incision clean dry and intact Encourage ice as needed Encourage hip knee foot and ankle range of motion as tolerated Take pain medication as prescribed Take antinausea medication as needed Resume home Eliquis for DVT prophylaxis Contact the office for any questions or concerns Follow-up with orthopedics in 2 weeks Supplement with Citracal vitamin D for bone health and healing -Please monitor heart rates closely, discharged on amiodarone tapering dose, with Cardizem ? Discharged with event monitor?discharged with close follow-up with cardiology ?discharged on Eliquis 2.5 mg twice daily if kidney function improves can increase dose of Eliquis to 5 mg twice daily this point discussion with cardiology -Monitor for aspiration, discharged on dysphagia level 6 diet ? Monitor for fluid overload -Continue [facility] therapy at jail facility, can use chest vest therapy as needed ? Patient can use Mucomyst, hypertonic saline Discharge Attestations Time Spent in Discharge Care*: greater than 30 min Quality Metrics Clinical Quality Measures [ No reported AMI, CVA or VTE this stay] Coding Level of Care Code 30427 Total time (in minutes) for Discharge: 45 Diagnoses Chronic atrial fibrillation I48.20 Nonrheumatic mitral valve regurgitation I34.0 Cardiac valve disease etiology: nonrheumatic Nonrheumatic aortic valve stenosis I35.0 Cardiac valve disease etiology: nonrheumatic Chronic diastolic congestive heart failure I50.32 Heart failure chronicity: chronic Heart failure type: diastolic Moderate pulmonary hypertension I27.20 Essential (primary) hypertension I10 Mixed hyperlipidemia E78.2
[2023-12-11] MEDS: dilTIAZem 30 mg Tablet 90 MG PO ×2 (13:06→17:22)
[2023-12-11] MEDS: TRAMadol 50 mg Tablet 25 MG PO (13:10)
--- NOTE | 2023-12-11 14:37 | P.PN_ITS ---
Subjective 2 Subjective: Patient was seen this morning, currently alert oriented x 4, following commands denies any hip pain, no shoulder pain, no shortness of breath, currently is in A-fib with RVR heart rates in the low 110s, on amiodarone drip, discussed potentially discharging her today if her heart rates were under control, she was transitioned off the amiodarone drip to amiodarone 400 twice daily, however heart rates remain in the 120s, Cardizem was increased to 90 every 6, heart rates have improved to 105 110, patient had physical therapy this afternoon however with physical therapy heart rates get into the 130s, and now the heart rates are between 1 10-1 30, will continue to monitor as inpatient for today, spoke to Dr. Rose about the case we will continue to monitor, spoke to patient, spoke to nursing staff, spoke to Dr. Rose Vitals/I&O/Wt Last Vital Signs Temp 98.1 F 12/11/23 11:51 Pulse 104 H 12/11/23 13:46 Resp 18 12/11/23 13:46 BP 122/78 12/11/23 11:51 Pulse Ox 94 12/11/23 13:46 O2 Del Method Nasal Cannula 12/11/23 13:46 O2 Flow Rate 4 12/11/23 13:46 FiO2 40 12/11/23 04:15 12/10/23 12/11/23 12/11/23 22:59 06:59 14:59 Intake Total 200 / 730 50 / 780 820.872 / 820.872 Balance 200 / 730 50 / 780 820.872 / 820.872 Weight last 48 hrs Weight 96.7 kg Weight 96.7 kg Physical Exam 2 Const: COMMON NORMALS: no acute distress and patient oriented x3 Resp: COMMON NORMALS: normal respiratory effort, No retractions, No use of accessory muscles and clear to auscultation bilaterally AUSCULTATION: clear to auscultation bilaterally Cardio: COMMON NORMALS: S1 normal heart sound present and S2 normal heart sound present RATE: tachycardic RHYTHM: abnormal rhythm HEART SOUNDS: S 1 normal heart sound present and S2 normal heart sound present GI: COMMON NORMALS: Normal to inspection, nondistended, normoactive bowel sounds present and non-tender Extremity: COMMON NORMALS: no pedal edema Neuro: COMMON NORMALS: patient oriented x3 Psych: COMMON NORMALS: mental status grossly normal Urinary Catheter Management: Vázquez: Cath Placed During This Visit: yes, but has since been removed by the nurse Reason for Continuing Indwelling Catheter: Decision to DC Catheter Urinary Catheter Date of Insertion: 12/02/23 Urinary Catheter Time of Insertion: 17:28 Date Urinary Catheter Removed: 12/10/23 Time Urinary Catheter Discontinued: 12:53 Data 12/11/23 03:19 12/11/23 03:19 A&P Assessment and plan (1) Acute exacerbation of CHF (congestive heart failure): Qualifiers: Heart failure type: diastolic Qualified Code(s): I50.33 - Acute on chronic diastolic (congestive) heart failure (2) Acute respiratory failure with hypoxemia: (3) Acute on chronic kidney failure: Qualifiers: Acute renal failure type: unspecified Chronic kidney disease stage: u nspecified stage Qualified Code(s): N17.9 - Acute kidney failure, unspecified; N18.9 - Chronic kidney disease, unspecified (4) Chronic respiratory failure: Qualifiers: Respiratory failure complication: unspecified whether with hypoxia or hypercapnia Qualified Code(s): J96.10 - Chronic respiratory failure, unspecified whether with hypoxia or hypercapnia (5) Mitral regurgitation: Qualifiers: Cardiac valve disease etiology: nonrheumatic Qualified Code(s): I34.0 - Nonrheumatic mitral (valve) insufficiency (6) Moderate pulmonary hypertension: (7) Aortic stenosis: Qualifiers: Cardiac valve disease etiology: nonrheumatic Qualified Code(s): I35.0 - Nonrheumatic aortic (valve) stenosis (8) Atrial fibrillation with rapid ventricular response: (9) Aspiration pneumonia: (10) Acute on chronic respiratory failure with hypoxia and hypercapnia: (11) Pulmonary hypertension: Plan Acute hypoxic hypercarbic respiratory failure ? Likely secondary to CHF exacerbation, aortic stenosis, A-fib with RVR ? Diastolic CHF exacerbation, BNP [id number], resolving ? With concerns for underlying silent aspiration, aspiration pneumonia, resolving ? During last hospitalization, patient had thick mucus secretions around left bronchial tree, with complete opacification of left lung, she also has right hemidiaphragmatic elevation, -Initially in mild to moderate respiratory distress and his cardiac stepdown unit, this afternoon much more comfortable in intensive care unit ? Status post thoracocentesis, 1 L removed, so far Gram stain within normal limits, pathology pending ? Plan, ? Due to A-fib with RVR moved to CSU ?continue BiPAP during the night, scheduled during the day ? De-escalate to prednisone -Patient looks euvolemic creatinine 1.3 hold off on further diuresis, but might require it with A-fib with RVR ? Patient has severe aortic stenosis low gradient likely also playing a role ? A-fib with RVR, on Cardizem 60 every 6 moved down to CCU started on Cardizem drip with bolus ? meropenem, continue for now as patient has penicillin allergy ? Monitor respiratory status closely, ? CODE STATUS full code Lovenox for DVT prophylaxis TANJA on CKD, creatinine 1.3 Hyperkalemia 1 dose Kayexalate Aortic stenosis, severe low gradient, likely also playing A-fib with RVR, now with tachybradycardia syndrome, hypotension ? Cardizem 60 every 6 ? 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 Peterson as outpatient Moderate pulm hypertension Right pleural effusion status post thoracocentesis, 1 L removed, cultures so far negative Chronic right diaphragm elevation Left hip 1. Acute, nondisplaced but impacted LEFT hip subcapital fracture with extension into the femoral neck. ? Status post Left hip closed reduction and percutaneous screw fixation Plan ? pt/ot ? Ultram for pain control ? PT OT Full code ? SCDs for DVT prophylaxis, eliquis Status is stable, ? Spoke to nursing staff, spoke to cardiology, spoke to nursing staff Plan for today Patient was seen this morning, currently alert oriented x 4, following commands denies any hip pain, no shoulder pain, no shortness of breath, currently is in A-fib with RVR heart rates in the low 110s, on amiodarone drip, discussed potentially discharging her today if her heart rates were under control, she was transitioned off the amiodarone drip to amiodarone 400 twice daily, however heart rates remain in the 120s, Cardizem was increased to 90 every 6, heart rates have improved to 105 110, patient had physical therapy this afternoon however with physical therapy heart rates get into the 130s, and now the heart rates are between 1 10-1 30, will continue to monitor as inpatient for today, spoke to Dr. Rose about the case we will continue to monitor, spoke to patient, spoke to nursing staff, spoke to Dr. Rose Attestations 2 Medical Necessity Statement*: Patient requires hospitalization for A-fib with RVR heart rates difficult to control, maximizing of medical medication transition off amiodarone drip, on p.o. amiodarone maximized on Cardizem, Diagnoses Acute on chronic diastolic congestive heart failure I50.33 Heart failure type: diastolic Acute respiratory failure with hypoxemia J96.01 Acute renal failure superimposed on chronic kidney disease, unspecified acute renal failure type, unspecified CKD stage N17.9; N18.9 Acute renal failure type: unspecified Chronic kidney disease stage: unspecified stage Chronic respiratory failure, unspecified whether with hypoxia or hypercapnia J96.10 Respiratory failure complication: unspecified whether with hypoxia or hypercapnia Nonrheumatic mitral valve regurgitation I34.0 Cardiac valve disease etiology: nonrheumatic Moderate pulmonary hypertension I27.20 Nonrheumatic aortic valve stenosis I35.0 Cardiac valve disease etiology: nonrheumatic Atrial fibrillation with rapid ventricular response I48.91 Aspiration pneumonia J69.0 Acute on chronic respiratory failure with hypoxia and hypercapnia J96.21; J96.22 Pulmonary hypertension I27.20
[2023-12-12] VITALS (10 sets, daily range): BP systolic 123–136; BP diastolic 75–87; PULSE 85–110; RESP 18–26; TEMP 36.7; O2SAT 94–96; BMI 37.8
[2023-12-12] MEDS: dilTIAZem 30 mg Tablet 90 MG PO ×3 (01:20→12:38)
[2023-12-12] MEDS: ipratropium-albuterol 3 mL Neb INHALATION ×2 (02:16→08:44)
[2023-12-12 04:16] LABS: Anion Gap 12.8 (5-19); Blood Urea Nitrogen 47 mg/dL (8-23); Calcium 7.7 mg/dL (8.5-10.5); Carbon Dioxide 29 mmol/L (22-29); Chloride 97 mmol/L (98-107); Creatinine Clr Calc Pharmacy 37.5696; Glucose 115 mg/dL (65-115); Osmolality Calculated 291 mOsm/kg (285-295); Potassium 4.8 mmol/L (3.5-5.1); Sodium 134 mmol/L (136-145)
[2023-12-12] MEDS: levothyroxine 112 mcg Tablet PO (05:50)
[2023-12-12] MEDS: apixaban 5 mg Tablet 2.5 MG PO (05:50)
--- NOTE | 2023-12-12 09:42 | PC.SOCIAL ---
IMM Update Pg. 2 of [facility] updated and reviewed with patient who verbalized understanding, copy provided.
[2023-12-12] MEDS: pantoprazole DR 40 mg Tablet PO (09:54)
[2023-12-12] MEDS: predniSONE 20 mg Tablet 40 MG PO (09:54)
[2023-12-12] MEDS: atorvastatin 40 mg Tablet 20 MG PO (09:54)
[2023-12-12] MEDS: nystatin 100,000 unit/mL UDC 5 mL 100000 UNIT PO ×2 (09:55→12:38)
[2023-12-12] MEDS: amiodarone 200 mg Tablet 400 MG PO (09:55)
--- NOTE | 2023-12-12 11:08 | PM.DCS ---
Discharge Providers Date of Admission: 12/02/23 16:55 Date of Discharge: December 12, 2023 Attending Provider at Admission: Rolan Kong DO Attending Provider at Discharge: Dilan Rivero MD Primary Care Provider: Jo Ledezma MD Diagnoses at Discharge Discharge Diagnosis (1) Acute exacerbation of CHF (congestive heart failure): Status: Acute Qualifiers: Heart failure type: diastolic Qualified Code(s): I50.33 - Acute on chronic diastolic (congestive) heart failure (2) Acute respiratory failure with hypoxemia: Status: Acute (3) Acute on chronic kidney failure: Status: Acute Qualifiers: Acute renal failure type: unspecified Chronic kidney disease stage: unspecified stage Qualified Code(s): N17.9 - Acute kidney failure, unspecified; N18.9 - Chronic kidney disease, unspecified (4) Chronic respiratory failure: Status: Acute Qualifiers: Respiratory failure complication: unspecified whether with hypoxia or hypercapnia Qualified Code(s): J96.10 - Chronic respiratory failure, unspecified whether with hypoxia or hypercapnia (5) Mitral regurgitation: Status: Acute Qualifiers: Cardiac valve disease etiology: nonrheumatic Qualified Code(s): I34.0 - Nonrheumatic mitral (valve) insufficiency (6) Moderate pulmonary hypertension: Status: Acute (7) Aortic stenosis: Status: Acute Qualifiers: Cardiac valve disease etiology: nonrheumatic Qualified Code(s): I35.0 - Nonrheumatic aortic (valve) stenosis (8) Atrial fibrillation with rapid ventricular response: Status: Acute (9) Aspiration pneumonia: Status: Acute (10) Acute on chronic respiratory failure with hypoxia and hypercapnia: Status: Acute (11) Pulmonary hypertension: Status: Acute Reason for Visit Reason for Visit: SOB Hospital Course Hospital Course Kelley Quezada is a 83 year old female lung disease and prolonged hospitalization August 27, 2019-09 09 2023. There she was diagnosed with pneumonia complete right-sided consolidation on chest x-rays she was diagnosed with atrial fibrillation. Bronchoscopy on 09/04/2023 showed multiple mucous secretions and tracheobronchial malacia determined by bronchoscopy. Reportedly she has done well since then. However she has developed more shortness of breath over the last few days. In the emergency room she is found to have a pH of 7.1. She was increased to 4 L and she appears improved. It was felt she needed to be admitted for acute on chronic respiratory failure On my assessment based on clinical exam and BN P she has clinically significant CHF. While I realize her echocardiogram showed a normal EF previously the patient is in A-fib with RVR and she is clearly unable to tolerate this heart rate. I advised admission to [facility] for CHF treatment Patient had a complicated prolonged hospitalization, please look at my last progress note for detail Patient was admitted to [facility] for acute hypoxic hypercarbic respiratory failure secondary to CHF, aortic stenosis, A-fib with RVR, with silent aspiration, aspiration pneumonia, requiring ICU admission, IV diuresis, heart rate controlled BiPAP therapy required thoracocentesis 1 L removed, manage on broad-spectrum antibiotic therapy. In terms of patient's aspiration pneumonitis, aspiration pneumonia, she has completed meropenem as inpatient. Patient has a chronic history of silent aspiration, history of right hemidiaphragmatic elevation, history of opacification of right lung, we have had a detailed discussion about her recurrent risk of aspiration pneumonia aspiration pneumonitis, morbidity mortality associated. She voices understanding, all questions answered, continue dysphagia level 6 diet, work with speech therapy at residential facility, she should continue BiPAP at residential facility during the night, as needed during the day, can use Mucomyst and N-acetylcysteine as needed For her fluid overload received IV diuresis overall clinically improved For A-fib with RVR, issues with tachybradycardia syndrome and hypotension, initially managed on beta-blockers with calcium channel blockers however developed bradycardia and hypotension, was then switched over to calcium channel blockers continue to have episodes of A-fib with RVR eventually transition to amiodarone, tolerated amiodarone, heart rates under control, transitioned off amiodarone drip, to p.o. amiodarone. Will be discharged on amiodarone taper with Cardizem 360 mg daily, discharged with event monitor with close follow-up with cardiology. Discharge on Eliquis 2.5 mg twice daily, given her TANJA on CKD We had a detailed discussion with patient about her goals of care given her moderate pulmonary hypertension, her aortic valve stenosis severe low gradient, this is likely playing a role due to her persistent shortness of breath, her A-fib which is difficult to control, will have her follow-up with cardiology as outpatient, for consideration of aortic valve replacement During patient's hospitalization she sustained a fall, and a left hip fracture, status post left hip closed reduction and percutaneous screw fixation by Dr. Bay, tolerated procedure well, received PT OT, pain control, overall clinically improved, discharged with pain control, Eliquis for DVT prophylaxis, with a close follow-up with Dr. 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 Peterson Physical Exam Const: COMMON NORMALS: no acute distress and patient oriented x3 Resp: COMMON NORMALS: normal respiratory effort, No retractions, No use of accessory muscles and clear to auscultation bilaterally AUSCULTATION: clear to auscultation bilaterally Cardio: COMMON NORMALS: regular rate, S1 normal heart sound present and S2 normal heart sound present RATE: regular rate HEART SOUNDS: S1 normal heart sound present and S2 normal heart sound present GI: COMMON NORMALS: Normal to inspection, nondistended, normoactive bowel sounds present and non-tender Extremity: COMMON NORMALS: no pedal edema Neuro: COMMON NORMALS: patient oriented x3 Psych: COMMON NORMALS: mental status grossly normal Urinary Catheter Management: Vázquez: Cath Placed During This Visit: yes, but has since been removed by the nurse Reason for Continuing Indwelling Catheter: Decision to DC Catheter Urinary Catheter Date of Insertion: 12/02/23 Urinary Catheter Time of Insertion: 17:28 Date Urinary Catheter Removed: 12/10/23 Time Urinary Catheter Discontinued: 12:53 Discharge Data Studies Completed and Pending Completed Studies During Hospitalization Category Date Time Status CT chest wo con [id number] Stat Cat Scan 12/02/23 14:[address] head wo con* [id number] Routine Cat Scan 12/04/23 14:[address] hip LT wo con* [id number] Routine Cat Scan 12/04/23 14:[address] lumbar spine wo con* [id number] Routine Cat Scan 12/04/23 14:42 Completed CXRP [XR chest 1V portable [id number]] Routine Exams 12/03/23 15:15 Completed XR chest 1V portable [id number] Routine Exams 12/03/23 09:55 Completed XR chest 1V portable [id number] Routine Exams 12/04/23 07:00 Completed XR chest 1V portable [id number] Routine Exams 12/06/23 07:00 Completed XR chest 1V portable [id number] Routine Exams 12/08/23 08:16 Completed XR chest 1V portable [id number] Routine Exams 12/11/23 07:00 Completed XR chest 1V portable [id number] Stat Exams 12/02/23 14:12 Completed XR hip BI m 5V wo/w pel* [id number] Stat Exams 12/04/23 12:53 Completed XR hip LT 2-3V wo/w pel* [id number] Routine Exams 12/05/23 23:01 Completed Cytology [PTH] Routine Pth 12/03/23 00:11 Completed US thoracentesis 95155 Routine Ultrasound 12/03/23 00:11 Completed Pending at discharge Category Date Time Status Basic Metabolic Panel AM LABS Lab 12/13/23 04:00 Ordered Basic Metabolic Panel AM LABS Lab 12/14/23 04:00 Ordered Mycobacteria, Culture w/Fluor Routine Lab 12/03/23 Results Radiology Impressions Chest CT 12/02/23 14:44 IMPRESSION: 1. Large right-sided pleural effusion of uncertain etiology 2. Stable cardiomegaly 3. Stable sclerotic lesion involving the thoracic spine 4. Cholelithiasis Hip/Pelvis X-Ray 12/05/23 23:01 IMPRESSION: 1. Negative for acute bony abnormality. 2. Right hip arthroplasty changes. 3. Left hip 3 point pinning seen in place. Laboratory Results WBC 11.62 10^3/uL (3.29-11.43) H 12/11/23 03:19 RBC 3.89 10^6/uL (3.85-5.65) 12/11/23 03:19 Hgb 10.50 g/dL (11.27-16.99) L 12/11/23 03:19 Hct 35.4 % (36-47) L 12/11/23 03:19 MCV 91.0 fl (85-98) 12/11/23 03:19 MCH 27.0 pg (27-33) 12/11/23 03:19 MCHC 29.7 g/dL (30-55) L 12/11/23 03:19 RDW 15.4 % (12.1-15.1) H 12/11/23 03:19 Plt Count 242 10^3/cmm (157-399) 12/11/23 03:19 MPV 10.8 fL (7.4-10.4) H 12/11/23 03:19 Neut % (Auto) 86.3 % 12/11/23 03:19 Lymph % (Auto) 6.1 % 12/11/23 03:19 Moffat % (Auto) 6.5 % 12/11/23 03:19 Eos % (Auto) 0.1 % 12/11/23 03:19 Baso % (Auto) 0.1 % 12/11/23 03:19 Neut # (Auto) 10.02 10^3/uL (1.8-7.7) H 12/11/23 03:19 Lymph # (Auto) 0.7 10^3/uL (0.8-4.8) L 12/11/23 03:19 Moffat # (Auto) 0.8 10^3/uL (0.2-0.9) 12/11/23 03:19 Eos # (Auto) 0.0 10^3/uL (0.0-0.8) 12/11/23 03:19 Baso # (Auto) 0.0 10^3/uL (0.0-0.1) 12/11/23 03:19 Nucleated RBC % (auto) 0 % 12/11/23 03:19 Nucleated RBCs # 0.0 /100WBC 12/11/23 03:19 Differential Comment Yes 12/03/23 Unknown PT 16.60 SECONDS (12.1-14.9) H 12/02/23 14:57 INR 1.29 (0.8-1.2) H 12/02/23 14:57 Specimen Type Arterial 12/04/23 03:29 Sample Site Radial, left 12/04/23 03:29 ABG pH 7.34 (7.35-7.45) L 12/04/23 03:29 ABG pCO2 52.4 mmHg (35-45) H 12/04/23 03:29 ABG pO2 69.7 mmHg (80.0-100.0) L 12/04/23 03:29 ABG PO2/FiO2 Ratio 0 12/04/23 03:29 ABG HCO3 28.2 mmol/L (22-26) H 12/04/23 03:29 ABG O2 Saturation 95.6 12/02/23 15:21 ABG Base Excess 2.1 mmol/L (-2.0-2.0) H 12/04/23 03:29 Mikhail Test Pos 12/04/23 03:29 A-a O2 Gradient 10.1 mmHg (5-10) H 12/02/23 15:21 Hematocrit 23.3 % (37-47) L 12/04/23 03:29 Hgb O2 Saturation 94.2 % (95-100) L 12/02/23 15:21 Carboxyhemoglobin 0.9 %THgb (0.4-20.1) 12/02/23 15:21 Methemoglobin 0.5 % (0.4-1.5) 12/02/23 15:21 Total Hemoglobin 12.2 g/dL (12-16) 12/02/23 15:21 Sodium 143.0 mmol/L (131-143) 12/02/23 15:21 Potassium 4.6 mmol/L (3.5-5.0) 12/02/23 15:21 Glucose 142.0 mg/dL (70-115) H 12/02/23 15:21 Ionized Calcium 1.2 mmol/L (1.1-1.4) 12/02/23 15:21 O2 Delivery Device Nc 12/04/23 03:29 O2 Liters/Min 5.0 % 12/04/23 03:29 FiO2 40.0 % 12/04/23 03:29 Tidal Volume 0.42 12/03/23 03:55 PEEP 10.0 cmH20 12/03/23 03:55 Gizzard Puller ID Alewe 12/04/23 03:29 Sodium 134 mmol/L (136-145) L 12/12/23 03:45 Potassium 4.8 mmol/L (3.5-5.1) 12/12/23 03:45 Chloride 97 mmol/L (98-107) L 12/12/23 03:45 Carbon Dioxide 29 mmol/L (22-29) 12/12/23 03:45 Anion Gap 12.8 (5-19) 12/12/23 03:45 BUN 47 mg/dL (8-23) H 12/12/23 03:45 Creatinine 1.3 mg/dL (0.5-0.9) H 12/12/23 03:45 GFR Calculation Not Reportable 12/12/23 03:45 Glucose 115 mg/dL (65-115) 12/12/23 03:45 POC Glucose 145 mg/dL (70-110) H 12/03/23 20:29 Calculated Osmolality 291 mOsm/kg (285-295) 12/12/23 03:45 Lactic Acid 1.2 mmol/L (0.5-2.2) 12/02/23 14:57 Calcium 7.7 mg/dL (8.5-10.5) L 12/12/23 03:45 Phosphorus 3.7 mg/dL (2.5-4.5) 12/11/23 03:19 Magnesium 2.4 mg/dL (1.7-2.3) H 12/11/23 03:19 Total Bilirubin 0.5 mg/dL (0.15-1.2) 12/11/23 03:19 AST 16 U/L (0-32) 12/11/23 03:19 ALT 18 U/L (0-33) 12/11/23 03:19 Alkaline Phosphatase 79 U/L (35-105) 12/11/23 03:19 Creatine Kinase 35 U/L (26-192) 12/08/23 03:07 Troponin T Baseline 36 ng/L (0-10) H 12/07/23 12:15 Troponin T 120 Minute 36.22 ng/L (0-10) H 12/07/23 14:10 Delta Troponin T 0.22 ABS# (0-10) 12/07/23 14:10 Troponin T Hi Sens 6Hr 32.11 ng/L (0-10) H 12/07/23 18:14 Troponin T Hi Sens 6Hr Delta -3.89 ng/L (0-12) L 12/07/23 18:14 C-Reactive Protein 3.0 mg/L (0.0-4.9) 12/10/23 14:30 NT-Pro-B Natriuret Pep 2291 pg/mL (0-450) H 12/11/23 03:19 Total Protein 5.5 g/dL (6.6-8.7) L 12/11/23 03:19 Albumin 3.4 g/dL (3.5-5.2) L 12/11/23 03:19 Globulin 2.1 g/dL (1.3-4.6) 12/11/23 03:19 25-OH Vitamin D Total 44 ng/mL (30-100) 12/03/23 05:03 Procalcitonin 0.09 ng/mL (0-0.5) 12/10/23 14:30 Urine Color Colorless (Yellow) 12/02/23 19:14 Urine Appearance Clear (CLEAR) 12/02/23 19:14 Urine pH 5 (5-7) 12/02/23 19:14 Ur Specific Carrie 1.005 (1.005-1.030) 12/02/23 19:14 Urine Protein Neg (Negative) 12/02/23 19:14 Urine Glucose (UA) Norm (Normal) 12/02/23 19:14 Urine Ketones Negative (Negative) 12/02/23 19:14 Urine Blood Trace (Negative) H 12/02/23 19:14 Urine Nitrate Negative (Negative) 12/02/23 19:14 Urine Bilirubin Neg (Negative) 12/02/23 19:14 Urine Urobilinogen Neg mg/dL (Negative) 12/02/23 19:14 Ur Leukocyte Esterase Negative (Negative) 12/02/23 19:14 Urine RBC 5-10 /hpf (0-2) H 12/02/23 19:14 Urine WBC 0-4 /hpf (0-5) H 12/02/23 19:14 Ur Squamous Epith Cells 0-4 /hpf (0-5) H 12/02/23 19:14 Amorphous Sediment Trace /hpf 12/02/23 19:14 Urine Bacteria Trace /hpf (NONE) 12/02/23 19:14 Hyaline Casts 0-4 /lpf H 12/02/23 19:14 Urine Mucus Trace /hpf 12/02/23 19:14 Fluid Color Yellow 12/03/23 Unknown Fluid Appearance Cloudy 12/03/23 Unknown Fluid WBC 716 /uL 12/03/23 Unknown Fluid RBC 2.000 10^3/uL 12/03/23 Unknown Fluid Hematocrit 0.0 % 12/03/23 Unknown Fld Polynuclear WBCs # 0.216 12/03/23 Unknown Fld Polynuclear WBCs % 30.200 % 12/03/23 Unknown Fl Mononucl WBCs #(Auto) 0.500 12/03/23 Unknown Fl Mononuclear % Auto 69.800 % 12/03/23 Unknown Fld Crystal Laterality Right 12/03/23 Unknown Fluid Albumin 2.0 g/dL 12/03/23 Unknown Fluid Creatinine 1.63 (0.5-0.9) H 12/03/23 Unknown Pleural pH 8.00 (6.5-7.5) H 12/03/23 Unknown Pleural Total Protein 2.8 g/dL 12/03/23 Unknown Pleural LDH 77 U/L 12/03/23 Unknown Pleural Glucose 121.0 mg/dL 12/03/23 Unknown Pleural Amylase 35 U/L 12/03/23 Unknown Pleural Triglycerides 33 mg/dL 12/03/23 Unknown SARS-CoV-2 Ag (Rapid) negative (Negative) 12/10/23 09:54 Blood Type A Positive 12/04/23 20:42 Rho(D) Type Rh positive 12/04/23 20:42 Antibody Screen Negative 12/04/23 20:42 Vitals Last Vital Signs Temp 98.0 F 12/12/23 07:55 Pulse 90 12/12/23 08:50 Resp 18 12/12/23 08:46 BP 123/79 12/12/23 07:55 Pulse Ox 94 12/12/23 08:46 O2 Del Method Nasal Cannula 12/12/23 08:46 O2 Flow Rate 4 12/12/23 08:46 FiO2 40 12/12/23 04:42 Discharge Plan Discharge Patient Disposition: Xfer SNF Condition: Stable Prescriptions: New tramadol 50 mg tablet 50 mg PO Q6H PRN (Reason: pain) 7 Days Qty: 28 0RF ondansetron 4 mg tablet,disintegrating 4 mg PO Q8H 3 Days Qty: 9 0RF Eliquis 5 mg Tablet 2.5 mg PO Q12H 30 Days Qty: 30 0RF Pacerone 200 mg Tablet See Rx Instructions .ROUTE .COMPLEX Qty: 60 0RF Rx Instructions: 2 tablets twice daily for 3 days, followed by 1 tab twice daily for 14 days, followed by 1 tab daily levothyroxine 112 mcg Tablet 112 mcg PO QAM 30 Days Qty: 30 0RF nystatin 100,000 unit/mL Suspension 100,000 unit PO QID 7 Days Qty: 28 0RF prednisone 20 mg Tablet 40 mg PO DAILY 3 Days Qty: 6 0RF diltiazem HCl 180 mg capsule,extended release 24hr 180 mg PO BID 30 Days Qty: 60 0RF acetylcysteine 100 mg/mL (10 %) solution 2 ml inhalation Q8H PRN (Reason: increased secretion) 30 Days Qty: 180 0RF metoprolol tartrate 25 mg tablet 25 mg PO DAILY PRN (Reason: for afib HR>130) 30 Days Qty: 60 0RF Continued ondansetron HCl 4 mg tablet 4 mg PO Q6H PRN (Reason: nausea and vomiting) Qty: 30 0RF calcium carbonate [Calcium 600] 600 mg calcium (1,500 mg) tablet 600 mg PO DAILY letrozole 2.5 mg tablet 2.5 mg PO DAILY Qty: 30 0RF lovastatin 20 mg tablet 40 mg PO DAILY Qty: 60 3RF omeprazole 40 mg capsule,delayed release(DR/EC) 40 mg PO DAILY Discontinued Eliquis 5 mg tablet 5 mg PO Q12H 30 Days Qty: 60 12RF metoprolol tartrate 50 mg tablet 75 mg PO BID clonidine HCl 0.1 mg tablet 0.1 mg PO BID levothyroxine 125 mcg tablet 125 mcg PO QAM No Action (DME) portable oxygen at 2L via NC See Rx Instructions .Route .MEDSUPPLY Qty: 1 0RF Rx Instructions: As directed (DME) chest vest See Rx Instructions .Route .MEDSUPPLY Qty: 1 0RF Rx Instructions: As directed Discharge Orders: Discharge Order (Routine); Ordered 12/12/23 Ordered By: Dilan Rivero Other Ambulatory Orders: MCT/Event Monitor 30 Days (Routine) Timeframe: 1 Day Facility: [facility] - Location: Radiology Ordered By: Dilan Rivero Referrals: [facility] [Outside] Naomy Garber FNP [Nurse Practitioner] - 01/22/24 1:00 pm (Also, you are scheduled to have a 30 day event monitor placed on SundayDecember 17 @ 1:00p.m. ) Earl Bay DO [Physician] - 12/20/23 3:45 pm Jo Ledezma MD [Primary Care Provider] - Discharge Diet: As Directed Discharge Activity: Limit activity as instructed, Use walker/crutches as instructed and As per PT/OT instructions Patient Instructions: Diltiazem (By mouth) (Cardizem, Cardizem CD, Cardizem LA, Cardizem SR), Levothyroxine (By mouth), Prednisone (By mouth) (predniSONE Intensol, Prednicot, Deltasone, Iliana), Nystatin (By mouth), Amiodarone (By mouth) (Cordarone, Pacerone), Tramadol (By mouth) (Ultram, Ultram ER, Ryzolt, Theratramadol-60, Qdolo), Ondansetron (By injection) (Zofran, BD Simplist Ondansetron,..., Acetylcysteine (By mouth), Apixaban (By mouth) (Eliquis), A-fib (Atrial Fibrillation) (DC), Aspiration Pneumonia (DC), Hip Fracture (GEN), Opioid Safety Activity Restrictions/Additional Instructions: Orthopedic discharge instructions: Patient may weight-bear as tolerated left lower extremity Change dressing as needed, keep incision clean dry and intact Encourage ice as needed Encourage hip knee foot and ankle range of motion as tolerated Take pain medication as prescribed Take antinausea medication as needed Resume home Eliquis for DVT prophylaxis Contact the office for any questions or concerns Follow-up with orthopedics in 2 weeks Supplement with Citracal vitamin D for bone health and healing -Please monitor heart rates closely, discharged on amiodarone tapering dose, with Cardizem ? Discharged with event monitor?discharged with close follow-up with cardiology ?discharged on Eliquis 2.5 mg twice daily if kidney function improves can increase dose of Eliquis to 5 mg twice daily this point discussion with cardiology -Monitor for aspiration, discharged on dysphagia level 6 diet ? Monitor for fluid overload -Continue BiPAP therapy at residential facility, can use chest vest therapy as needed ? Patient can use Mucomyst, hypertonic saline -For heart rate, at times heart rates can be difficult to control given patient's aortic stenosis, please monitor heart rate closely, if heart rate greater than 130, patient short of breath, patient can take Metroprolol 25 mg once daily as needed for heart rate greater than 130, as needed Discharge Attestations Time Spent in Discharge Care*: greater than 30 min Quality Metrics Clinical Quality Measures [ No reported AMI, CVA or VTE this stay] Coding Level of Care Code 16798 Total time (in minutes) for Discharge: 45 Diagnoses Acute on chronic diastolic congestive heart failure I50.33 Heart failure type: diastolic Acute respiratory failure with hypoxemia J96.01 Acute renal failure superimposed on chronic kidney disease, unspecified acute renal failure type, unspecified CKD stage N17.9; N18.9 Acute renal failure type: unspecified Chronic kidney disease stage: unspecified stage Chronic respiratory failure, unspecified whether with hypoxia or hypercapnia J96.10 Respiratory failure complication: unspecified whether with hypoxia or hypercapnia Nonrheumatic mitral valve regurgitation I34.0 Cardiac valve disease etiology: nonrheumatic Moderate pulmonary hypertension I27.20 Nonrheumatic aortic valve stenosis I35.0 Cardiac valve disease etiology: nonrheumatic Atrial fibrillation with rapid ventricular response I48.91 Aspiration pneumonia J69.0 Acute on chronic respiratory failure with hypoxia and hypercapnia J96.21; J96.22 Pulmonary hypertension I27.20
--- NOTE | 2023-12-12 11:14 | P.PN_ITS ---
Vitals/I&O/Wt Last Vital Signs Temp 98.0 F 12/12/23 07:55 Pulse 90 12/12/23 08:50 Resp 18 12/12/23 08:46 BP 123/79 12/12/23 07:55 Pulse Ox 94 12/12/23 08:46 O2 Del Method Nasal Cannula 12/12/23 08:46 O2 Flow Rate 4 12/12/23 08:46 FiO2 40 12/12/23 04:42 12/11/23 12/12/23 12/12/23 22:59 06:59 14:59 Intake Total 340 / 1160.872 240 / 240 Balance 340 / 1160.872 240 / 240 Weight last 48 hrs Weight 213 lb 3 oz Weight 213 lb 3 oz Physical Exam 2 Urinary Catheter Management: Vázquez: Cath Placed During This Visit: yes, but has since been removed by the nurse Reason for Continuing Indwelling Catheter: Decision to DC Catheter Urinary Catheter Date of Insertion: 12/02/23 Urinary Catheter Time of Insertion: 17:28 Date Urinary Catheter Removed: 12/10/23 Time Urinary Catheter Discontinued: 12:53 Data 12/11/23 03:19 12/12/23 03:45 Coding Level of Care Code Acute Code for Chg Fwd
--- NOTE | 2023-12-12 11:46 | PC.NURSE ---
Informed by SKI INSTRUCTOR that the pt needs a new dressing to her hip. I went to place a new island dressing on the pt and noticed that it was a special dressing with silver. Called surgery dept to see if I could locate the DrRonaldo and they said he was out for the week. I then asked if they had a new dressing to place on the pt as she was going to be [facility] a [facility] in an hour. I was instructed that I am to leave the dressing in place and to place an opsite island dressing over the current dressing.
--- NOTE | 2023-12-12 12:08 | PC.NURSE ---
Informed surgery that the dressing was changed yesterday and that Silverlon was used. A new dressing was supplied by surgery and it was replaced and site was cleansed with NS and gauze prior to placing the new dressing on.
--- NOTE | 2023-12-12 12:12 | PC.NURSE ---
Called to Dr. Bay and left message that area was swollen and that the new dressing was saturated with blood. It appears that the bleeding may be coming from the area where there are 3 rafael still in the pt's thigh at the end of the incision site distally. Notified that the incision looks great with no s/sx of infection and healed nicely.
--- NOTE | 2023-12-12 13:34 | PC.NURSE ---
Report called to [facility] and given to Pippa Palacios LPN.
--- NOTE | 2023-12-12 14:38 | PC.NURSE ---
Discharge Note Patient discharged to [[facility]] via [w/c to SNF van] accompanied by [SNF personnel and spouse]. Discharge instructions reviewed with patient and/or chain sales representative. Mobile pharmacy medications and/or prescriptions provided. Belongings/home medications returned.
== END 2023-12-12 12:30 | disposition skilled nursing facility (03) | DRG 981 ==
LOC: ER 16:37 → CSU 17:05 → ICU 12-03 09:54 → MEDSURG 12-07 05:46 → CSU 12-10 16:15
PROVIDERS: Student in an Organized Health Care Education/Training Program; Admitting Provider Internal Medicine; Emergency Provider Internal Medicine; PCP Family Medicine; Visit Provider Family Medicine
PROC: 0QH734Z Insertion of Internal Fixation Device into Left Upper Femur, Percutaneous Approach (ICD-10-PCS; CPT 27236; principal; 2023-12-05 16:50)
DX: I13.0 Hypertensive heart and chronic kidney disease with heart failure and stage 1 through stage 4 chronic kidney disease, or unspecified chronic kidney disease (principal); I50.33 Acute on chronic diastolic (congestive) heart failure; S72.012A Unspecified intracapsular fracture of left femur, initial encounter for closed fracture; J96.22 Acute and chronic respiratory failure with hypercapnia; J96.21 Acute and chronic respiratory failure with hypoxia; J69.0 Pneumonitis due to inhalation of food and vomit; I48.20 Chronic atrial fibrillation, unspecified; N17.9 Acute kidney failure, unspecified; G95.89 Other specified diseases of spinal cord; N18.9 Chronic kidney disease, unspecified; M81.0 Age-related osteoporosis without current pathological fracture; M10.9 Gout, unspecified; I08.0 Rheumatic disorders of both mitral and aortic valves; M43.16 Spondylolisthesis, lumbar region; M48.062 Spinal stenosis, lumbar region with neurogenic claudication; M51.17 Intervertebral disc disorders with radiculopathy, lumbosacral region; E89.0 Postprocedural hypothyroidism; I27.20 Pulmonary hypertension, unspecified; I95.9 Hypotension, unspecified; I49.5 Sick sinus syndrome; E87.5 Hyperkalemia; D64.9 Anemia, unspecified; R13.10 Dysphagia, unspecified; E78.2 Mixed hyperlipidemia; I73.9 Peripheral vascular disease, unspecified; Z96.641 Presence of right artificial hip joint; W01.0XXA Fall on same level from slipping, tripping and stumbling without subsequent striking against object, initial encounter; Y92.230 Patient room in hospital as the place of occurrence of the external cause; Z11.52 Encounter for screening for COVID-19; Z87.01 Personal history of pneumonia (recurrent); Z99.81 Dependence on supplemental oxygen; Z79.01 Long term (current) use of anticoagulants; Z87.891 Personal history of nicotine dependence; Z85.3 Personal history of malignant neoplasm of breast; Z88.0 Allergy status to penicillin
CPT/HCPCS: 32555; 36415; 36416; 36600; 51702; 70450; 71045; 71250; 72131; 73502; 73521; 73523; 73700; 76000; 80048; 80051; 80053; 80503; 81001; 82042; 82150; 82306; 82330; 82550; 82570; 82803; 82805; 82945; 82962; 83605; 83615; 83735; 83880; 83986; 84100; 84145; 84157; 84478; 84484; 85014; 85025; 85610; 86140; 86850; 86900; 87015; 87040; 87070; 87075; 87116; 87205; 87206; 87426; 87801; 88305; 89050; 92610; 93005; 94640; 94660; 94664; 94669; 94762; 96374; 96376; 97110; 97116; 97161; 97167; 97530; 97535; 99285; A9270; C1713; J0283; J1940; J2060; J2185; J2270; J2405; J2704; J2919; J2920; J3010; J3490; J7030; J7512; J7608; Q0162

== ENCOUNTER → 2023-12-20 13:09 | Outpatient (BNVA) | payer MEDICARE, OTHER, SELFPAY | PROVIDERS: PCP Family Medicine; Visit Provider Physician Assistant | DX: S72.002A Fracture of unspecified part of neck of left femur, initial encounter for closed fracture (principal); X58.XXXA Exposure to other specified factors, initial encounter | CPT/HCPCS: 73502; 99024 ==

== ENCOUNTER 2024-01-06 16:00 | Emergency (ER) | payer MEDICARE, OTHER, SELFPAY ==
[2024-01-06] VITALS (8 sets, daily range): BP systolic 123–161; BP diastolic 68–99; PULSE 85–99; RESP 16–18; TEMP 37.1; O2SAT 91–97; BMI 31.8
--- NOTE | 2024-01-06 16:06 | XRR_ITS ---
PROCEDURE INFORMATION: Exam: XR Chest Exam date and time: 01/06/2024 4:16 PM Age: 83 years old Clinical indication: Other: Hemoptysis; Patient HX: Heart recorder; Additional info: SOB TECHNIQUE: Imaging protocol: Radiologic exam of the chest. Views: 1 view. COMPARISON: CR XR chest 1V portable [id number] 12/11/2023 7:11 AM FINDINGS: Lungs: Focal airspace opacities in the right upper lung. Please see separate report of concurrent CT of the chest for pertinent details. Pleural spaces: No evidence of pneumothorax. Small right-sided pleural effusion. Heart/Mediastinum: Cardiomediastinal silhouette is within normal limits. Bones/joints: T9 vertebral body osseous metastasis. Clips noted in the left axilla. XR/XR chest 1V portable [id number] IMPRESSION: 1. Focal airspace opacities in the right upper lung. Please see separate report of concurrent CT of the chest for pertinent details.
--- NOTE | 2024-01-06 16:09 | ECG_ITS ---
[facility] Test Date: 2024-01-06 Pat Name: Kelley Quezada Department: Room: Gender: Female Box Order Person: : 1940 Requested By: Edawr Galeana Order Number: [id number] Yosef MD: Piyush Lau M.D. Measurements Intervals [place] Rate: 91 P: 0 NC: 0 QRS: 11 QRSD: 90 T: 53 QT: 355 QTc: 437 Interpretive Statements ATRIAL FIBRILLATION NONSPECIFIC T-WAVE ABNORMALITY ABNORMAL RHYTHM ECG Compared to ECG 12/07/2023 11:37:54 T-wave abnormality now present Electronically Signed On 01-06-2024 22:29:44 CDT by Piyush Lau M.D. [id number]
--- NOTE | 2024-01-06 16:12 | CTR_ITS ---
PROCEDURE INFORMATION: Exam: CTA Chest With Contrast Exam date and time: 01/06/2024 5:25 PM Age: 83 years old Clinical indication: Other: N/a; Abdominal pain; Generalized; Prior surgery; Surgery date: 6+ months; Surgery type: Thyroid. Lumpectomy. Tubal. Vimal. Patient HX: Hemoptysis with diffuse abd pain. History of breast cancer. TECHNIQUE: Imaging protocol: Computed tomographic angiography of the chest with contrast. Exam focused on the arteries. 3D rendering (Not supervised by radiologist): MIP and/or 3D reconstructed images were created by the technologist. Radiation optimization: All CT scans at this facility use at least one of these dose optimization techniques: automated exposure control; mA and/or kV adjustment per patient size (includes targeted exams where dose is matched to clinical indication); or iterative reconstruction. Contrast material: OMNI 350; Contrast volume: 77 ml; Contrast route: INTRAVENOUS (IV); COMPARISON: CT angio chest PE protcl [id number] 08/27/2023 6:01 PM RADIATION DOSE METRICS: Total DLP (mGy-cm): 1449.59 FINDINGS: Pulmonary arteries: Evaluation for pulmonary thromboembolism is limited beyond the proximal segmental level due to respiratory motion. No evidence of PE. Aorta: No evidence of aneurysmal dilatation or dissection of the thoracic aorta. Thyroid: Grossly unremarkable. Lungs: There is a proximally 6.5 cm meter airspace opacity in the right upper lobe with surrounding ground-glass most suggestive of pneumonia. There is a 15 mm nodular opacity in the superior segment of the right lower lobe. Pleural spaces: Small right-sided and trace left-sided pleural effusion. No pneumothorax. Heart: No cardiomegaly. No pericardial effusion. Mediastinal space: No evidence of mediastinal mass, fluid collection or hematoma. Lymph nodes: No mediastinal or hilar adenopathy. Bones/joints: Chronic T9 vertebral body sclerotic osseous metastasis, unchanged since prior. No evidence of acute fracture. Chronic mild height loss of T6, possibly sequela of remote compression fracture. Stimulator leads noted terminating in the thoracic spinal canal. Soft tissues: No evidence of fluid collection or hematoma in the superficial soft tissues. PROCEDURE INFORMATION: Exam: CT Abdomen And Pelvis With Contrast Exam date and time: 01/06/2024 5:25 PM Age: 83 years old Clinical indication: Other: N/a; Abdominal pain; Generalized; Prior surgery; Surgery date: 6+ months; Surgery type: Thyroid. Lumpectomy. Tubal. Vimal. Patient HX: Hemoptysis with diffuse abd pain. History of breast cancer. TECHNIQUE: Imaging protocol: Computed tomography of the abdomen and pelvis with contrast. Radiation optimization: All CT scans at this facility use at least one of these dose optimization techniques: automated exposure control; mA and/or kV adjustment per patient size (includes targeted exams where dose is matched to clinical indication); or iterative reconstruction. Contrast material: OMNI 350; Contrast volume: 77 ml; Contrast route: INTRAVENOUS (IV); COMPARISON: CT pelvis wo con [id number] 05/02/2023 11:54 AM RADIATION DOSE METRICS: Total DLP (mGy-cm): 1449.59 FINDINGS: Liver: Hepatic steatosis. No evidence of focal hepatic lesion. Gallbladder and bile ducts: There is cholelithiasis. No inflammatory changes to suggest acute cholecystitis. No intrahepatic or extrahepatic biliary dilatation. Pancreas: Unremarkable. Spleen: Multiple splenic calcifications compatible with sequela of a remote granulomatous process. Otherwise grossly unremarkable. Adrenal glands: Unremarkable. Kidneys and ureters: There is a simple appearing right-sided renal cyst for which dedicated imaging follow-up is not required. Otherwise no evidence of renal parenchymal abnormality. No hydronephrosis or ureteral stone. Stomach and bowel: Colonic diverticulosis without evidence of acute diverticulitis. No bowel obstruction or perienteric inflammatory changes. There is wall thickening of the sigmoid colon, possibly secondary to prior bouts of diverticulitis. Consider correlation with follow-up colonoscopy to exclude an underlying mucosal lesion. Appendix: The appendix is not visualized, however there are no findings to suggest appendicitis. Intraperitoneal space: No evidence of free air or fluid collection. Vasculature: No aneurysmal dilatation or dissection of the abdominal aorta. The celiac trunk, SMA and ELLEN are grossly patent.No evidence of IVC thrombus. The portal vein, SMV and splenic veins are grossly patent. Lymph nodes: No adenopathy. Urinary bladder: Grossly unremarkable. Reproductive: Grossly unremarkable. Bones/joints: No evidence of acute fracture. 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 Additional metastasis in the right lateral aspect of the L4 vertebral body. Total right hip arthroplasty partially visualized. ORIF of the left femoral neck partially visualized.Moderate-severe multilevel spondylosis of the lumbar spine with facet arthrosis, osteophytosis and endplate degeneration.1 Soft tissues: No evidence of fluid collection or hematoma in the superficial soft tissues. Stimulator device noted. CT/CT angio chest w abd pel w con IMPRESSION: 1. Right upper lobe pneumonia. Follow-up CT of the chest in 4-6 weeks is recommended to assess for resolution. 2. No evidence of PE or acute aortic abnormality. 3. 15 mm right lower lobe nodular opacity, possibly also infectious. Recommend assessing for resolution at time of follow-up CT chest. If persistent, PET-CT is recommended. 4. Small right-sided pleural effusion. IMPRESSION: 1. No evidence of acute abnormality in the abdomen or pelvis. 2. Diverticulosis without evidence of acute diverticulitis. There is wall thickening of the sigmoid colon, possibly secondary to prior bouts of diverticulitis. Consider correlation with follow-up colonoscopy to exclude an underlying mucosal lesion. 3. Osseous metastatic disease.
--- NOTE | 2024-01-06 16:13 | ED_ITS ---
HPI - Abdominal Pain 2 General: Chief Complaint: Abdominal Pain Stated Complaint: COUGHING UP BLOOD Time Seen by Provider: 01/06/24 16:01 Source: patient and EMS Mode of arrival: EMS Limitations: no limitations History of Present Illness: 83-year-old female states she been havin g increasing shortness of breath along with cough over the last 3 to 4 days. States she started having some slight hemoptysis today she states it was flex on her tingling axis. States the cough has been productive she had some abdominal pain as well. She denies any fever denies any chest pain denies any worsening proving factors. 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 Nu Hubbard [facility] Family History Sister Cancer Breast Other Family history non-contributory Suicide Denies family history of Diabetes CAD (coronary artery disease) Clotting disorder Dementia Hyperlipidemia Psychiatric illness Chronic kidney disease (CKD) Anesthesia complication Bleeding disorder Lung disease Hypertension Stroke Social History Smoking and tobacco/nicotine status: former use of tobacco/nicotine Quit status (tobacco/nicotine): has quit using Year quit tobacco: 1966 Former quit date comment: 0.25 ppd X 4 years Second hand smoke exposure: No Alcohol intake: never Substance/Drug Use: never Caregiver/support person: Yes Lives independently: Yes Household members: spouse Marital status: Current occupational status: retired Current gender identity: Female Special temi needs: No Agree to transfusion: Yes Physical Exam 2 Const: COMMON NORMALS: patient oriented x3 HENMT: COMMON NORMALS: normocephalic and atraumatic HEAD & SCALP: n ormocephalic and atraumatic Eye: COMMON NORMALS: conjunctivae normal CONJUNCTIVA: Yes conjunctivae normal Neck/C-Spine: COMMON NORMALS: full ROM and supple Chest: COMMONS NORMALS: normal inspection of the chest and normal palpation of entire chest wall Resp: COMMON NORMALS: normal respiratory effort, No retractions, No use of accessory muscles and clear to auscultation bilaterally AUSCULTATION: clear to auscultation bilaterally Cardio: COMMON NORMALS: regular rate and No murmurs present (Cardio) RATE: regular rate RHYTHM: abnormal rhythm irregularly irregular GI: COMMON NORMALS: Normal to inspection, nondistended, normoactive bowel sounds present, Soft to palpation and no masses PALPATION: Yes Soft to palpation OTHER: diffus tenderness Extremity: COMMON NORMALS: normal to inspection and full ROM Neuro: COMMON NORMALS: patient oriented x3, moves all extremities and no focal motor deficits Psych: COMMON NORMALS: mental status grossly normal, Normal thought process present and cooperative THOUGHT PROCESS: Normal thought process present Skin: COMMON NORMALS: no rashes or lesions noted and no wounds GENERAL SKIN EXAM: no rashes or lesions noted Course 2 Vital Signs: Vital signs: Vital Signs Temperature 98.8 F 01/06/24 16:02 Pulse Rate 89 01/06/24 17:09 Respiratory Rate 16 01/06/24 17:09 Blood Pressure 135/76 01/06/24 17:09 Pulse Oximetry 97 01/06/24 17:09 Oxygen Delivery Me thod Room Air 01/06/24 17:09 Oxygen Flow Rate 4 01/06/24 16:02 MDM - Abdominal Pain Medical Decision Making Patient presents here with increasing shortness of breath along with some hemoptysis CT did show right upper lobe pneumonia her hemoptysis has been minimal she had no hemoptysis here will start on IV antibiotics she did have an elevated white count she is afebrile here vital signs here been stable spoke to hospitalist will admit Medical Records I reviewed the patient's medical records. Lab Data I reviewed the patient's lab results. 01/06/24 16:12 01/06/24 16:12 Labs/Radiology: Laboratory Results WBC 16.61 10^3/uL (3.29-11.43) H 01/06/24 16:12 RBC 3.58 10^6/uL (3.85-5.65) L 01/06/24 16:12 Hgb 10.40 g/dL (11.27-16.99) L 01/06/24 16:12 Hct 32.4 % (36-47) L 01/06/24 16:12 MCV 90.5 fl (85-98) 01/06/24 16:12 MCH 29.1 pg (27-33) 01/06/24 16:12 MCHC 32.1 g/dL (30-55) 01/06/24 16:12 RDW 17.2 % (12.1-15.1) H 01/06/24 16:12 Plt Count 248 10^3/cmm (157-399) 01/06/24 16:12 MPV 9.6 fL (7.4-10.4) 01/06/24 16:12 Neut % (Auto) 94.0 % 01/06/24 16:12 Lymph % (Auto) 1.4 % 01/06/24 16:12 [place] % (Auto) 3.6 % 01/06/24 16:12 Eos % (Auto) 0.0 % 01/06/24 16:12 Baso % (Auto) 0.2 % 01/06/24 16:12 Neut # (Auto) 15.60 10^3/uL (1.8-7.7) H 01/06/24 16:12 Lymph # (Auto) 0.2 10^3/uL (0.8-4.8) L 01/06/24 16:12 [place] # (Auto) 0.6 10^3/uL (0.2-0.9) 01/06/24 16:12 Eos # (Auto) 0.0 10^3/uL (0.0-0.8) 01/06/24 16:12 Baso # (Auto) 0.0 10^3/uL (0.0-0.1) 01/06/24 16:12 Nucleated RBC % (auto) 0 % 01/06/24 16:12 Nucleated RBCs # 0.0 /100WBC 01/06/24 16:12 PT 14.30 SECONDS (12.1-14.9) 01/06/24 16:32 INR 1.07 (0.8-1.2) 01/06/24 16:32 Sodium 128 mmol/L (136-145) L 01/06/24 16:12 Potassium 4.0 mmol/L (3.5-5.1) 01/06/24 16:12 Chloride 90 mmol/L (98-107) L 01/06/24 16:12 Carbon Dioxide 28 mmol/L (22-29) 01/06/24 16:12 Anion Gap 14.0 (5-19) 01/06/24 16:12 BUN 33 mg/dL (8-23) H 01/06/24 16:12 Creatinine 1.7 mg/dL (0.5-0.9) H 01/06/24 16:12 GFR Calculation Not Reportable 01/06/24 16:12 Glucose 172 mg/dL (65-115) H 01/06/24 16:12 Calculated Osmolality 277 mOsm/kg (285-295) L 01/06/24 16:12 Calcium 6.7 mg/dL (8.5-10.5) L 01/06/24 16:12 Total Bilirubin 0.5 mg/dL (0.15-1.2) 01/06/24 16:12 AST 14 U/L (0-32) 01/06/24 16:12 ALT 14 U/L (0-33) 01/06/24 16:12 Alkaline Phosphatase 61 U/L (35-105) 01/06/24 16:12 NT-Pro-B Natriuret Pep 1175 pg/mL (0-450) H 01/06/24 16:12 Total Protein 5.4 g/dL (6.6-8.7) L 01/06/24 16:12 Albumin 3.3 g/dL (3.5-5.2) L 01/06/24 16:12 Globulin 2.1 g/dL (1.3-4.6) 01/06/24 16:12 Lipase 17 U/L (13-60) 01/06/24 16:12 All radiology interpretation(s) finalized by discharge EKG Data EKG 1: I personally reviewed and interpreted this EKG as follows: EKG interpretation date: 01/06/24 EKG interpretation time: 16:09 Interpretation: afib hr [address] or t wave abnormalities qrs 90 qtc 403 Discharge Plan Discharge Patient Disposition: Admitted As Inpatient Clinical Impression: Pneumonia Qualifiers: Pneumonia type: due to unspecified organism Laterality: right Lung location: u pper lobe of lung Qualified Code(s): J18.9 - Pneumonia, unspecified organism Condition: Stable Coding Level of Care Code ED Mobile Equipment Operator for Roland Arnett
[2024-01-06 16:23] LABS: Basophils % 0.2 %; Hematocrit 32.4 % (36-47); Lymphocytes # 0.2 10^3/uL (0.8-4.8); Lymphocytes % 1.4 %; Mean Corpuscular HGB Conc 32.1 g/dL (30-55); Mean Corpuscular Hemoglobin 29.1 pg (27-33); Mean Corpuscular Volume 90.5 fl (85-98); Mean Platelet Volume 9.6 fL (7.4-10.4); Monocytes # 0.6 10^3/uL (0.2-0.9); Monocytes % 3.6 %; Nucleated Red Blood Cells % 0 %; Platelet Count 248 10^3/cmm (157-399); Red Blood Count 3.58 10^6/uL (3.85-5.65); Red Cell Distribution Width 17.2 % (12.1-15.1); White Blood Count 16.61 10^3/uL (3.29-11.43)
[2024-01-06 16:50] LABS: INR 1.07 (0.8-1.2)
[2024-01-06 16:56] LABS: Alanine Aminotransferase 14 U/L (0-33); Albumin Level 3.3 g/dL (3.5-5.2); Alkaline Phosphatase 61 U/L (35-105); Blood Urea Nitrogen 33 mg/dL (8-23); Calcium 6.7 mg/dL (8.5-10.5); Carbon Dioxide 28 mmol/L (22-29); Chloride 90 mmol/L (98-107); Globulin 2.1 g/dL (1.3-4.6); Glucose 172 mg/dL (65-115); Lipase 17 U/L (13-60); NT Pro B Type Natriuretic Pept 1175 pg/mL (0-450); Osmolality Calculated 277 mOsm/kg (285-295); Sodium 128 mmol/L (136-145); Total Bilirubin 0.5 mg/dL (0.15-1.2); Total Protein 5.4 g/dL (6.6-8.7)
[2024-01-06 17:15] LABS: Creatinine Clr Calc Pharmacy 26.2627
[2024-01-06 17:16] LABS: Aspartate Amino Transferase 14 U/L (0-32)
[2024-01-06] MEDS: iohexol 350 mg/mL 500 mL Btl (per mL) IV (17:26)
[2024-01-06] MEDS: aztreonam 2,000 MG in sodium chloride 0.9% (plus) 100 ML 200 MG IV (17:59)
[2024-01-06] MEDS: sodium chloride 0.9% 1,000 ML 999 ML IV (17:59)
[2024-01-06] MEDS: vancomycin 1,000 MG in sodium chloride 0.9% 250 ML 250 MG IV (18:56)
== END 2024-01-06 20:50 | disposition critical access hospital (66) ==
LOC: ER 17:54 → MEDSURG 18:33
PROVIDERS: Emergency Provider Emergency Medicine; PCP Family Medicine
DX: J18.9 Pneumonia, unspecified organism (principal); Z87.891 Personal history of nicotine dependence; Z85.3 Personal history of malignant neoplasm of breast; E78.2 Mixed hyperlipidemia; I10 Essential (primary) hypertension
CPT/HCPCS: 36415; 71045; 71275; 74177; 80053; 83690; 83880; 85025; 85610; 87040; 93005; 96365; 96366; 96367; 99285; J3370; J3490; J7030; J7050; Q9967